=== PATIENT | female | born 1975 | race Caucasian/White ===

== ENCOUNTER 2022-03-02 07:24 | Emergency (ER) | payer OTHER, SELFPAY ==
[2022-03-02 07:24] VITALS: BP 153/107; PULSE 122; RESP 22; O2SAT 100
[2022-03-02 07:26] VITALS: BP 181/112; PULSE 122; RESP 14; TEMP 36.6; O2SAT 100; BMI 44.4
--- NOTE | 2022-03-02 07:46 | CT_ITS ---
STUDY: CT Abdomen And Pelvis W/ Contrast Injection 03/02/2022 9:05 AM REASON FOR EXAM: Female, 46 years old. ride sided abd pain TECHNIQUE: Transaxial images were obtained without oral contrast, and without 100mL Isovue 300 intravenous contrast. Individualized dose optimization techniques were used for this CT. COMPARISON: None. FINDINGS: The visualized lung bases are unremarkable. The visualized portions of the heart are within normal limits. 20mm enhancing lesion in the right lobe of the liver. Unremarkable gallbladder and extrahepatic biliary system. Unremarkable spleen. Unremarkable pancreas. Unremarkable bilateral adrenal glands. No acute findings of the right kidney. No acute findings of the left kidney. Unremarkable visualized stomach. Unremarkable small intestine. Unremarkable colon. The appendix is visualized and appears unremarkable. There are calcifications of the abdominal aorta. This is consistent for atherosclerotic disease. There is no abdominal aortic aneurysm. Unremarkable inferior vena cava. Subcentimeter mesenteric lymph nodes. Unremarkable urinary bladder. Normal visualized uterus. There is an umbilical hernia containing fat. There are diffuse degenerative changes of the visualized lumbar spine. There is bilateral neural foraminal stenosis at L4-5 and L5-S1. CT/Abdomen/Pelvis W IV Cont ONLY IMPRESSION: (NOT LISTED IN ORDER OF SIGNIFICANCE) 20mm enhancing lesion in the right lobe of the liver. ACR White Paper guidelines (Tom, et al. JACR 2017; 14(11):1750-4415.) suggest the following. For patients with low risk of malignancy, recommend hepatic MR. For patients with high risk of malignancy (known malignancy with a propensity to metastasize to the liver, cirrhosis, and/or other hepatic risk factors), recommend hepatic MR or core biopsy. There are diffuse degenerative changes of the visualized lumbar spine. There is bilateral neural foraminal stenosis at L4-5 and L5-S1. There are calcifications of the abdominal aorta. This is consistent for atherosclerotic disease. There is no abdominal aortic aneurysm. Other findings as above. Electronically Signed: Jose Carlos Hinojosa MD at 9:13 EDT ,
--- NOTE | 2022-03-02 07:49 | ED.VIS.GI ---
HPI HPI - GI History of Present Illness Chief Complaint: Abd Pain Informant: patient Abdominal Pain/Flank Pain Onset: Days Context: Gradual Onset Timing: Continuous Quality: Aching Location: RUQ Current Severity: Mild Maximum Severity: Mild Worsened by: Nothing Relieved by: Nothing Nausea/Vomiting/Emesis GI Symptom: Positive for Nausea and Vomiting Onset: Today Severity: Mild Diarrhea/Melena/Hematochezia GI Symptom: Negative for Diarrhea, Melena and Hematochezia Associated Symptoms Associated Symptoms: Negative for Dysuria, Frequency, Hematuria and Urgency Narrative Narrative: 46-year-old female no seen past medical history. Prior back surgery but no prior abdominal surgery. States that on she started having right-sided abdominal pain. Towards the right upper quadrant but kind of between the upper quadrant and the lower quadrant. She denies any prior history. States she had nausea and vomiting times once on but has not had any since that time. She denies any fever or chills. She denies any dysuria. Describes it as a dull aching pain without any radiation to her back or left side of her abdomen. She has never had any history of pain like this before. Denies any trauma. Prior similar symptoms: No Recent Illness/Hospitalization: No PFSH PFSH Medical History no medical history no medical history Home Medications ondansetron 4 mg PO Q6H PRN #10 tab 03/02/22 [Rx Last Taken Unknown] Allergy/AdvReac Type Severity Reaction Status Date / Time ketorolac [From Toradol] Allergy Other Verified 03/02/22 07:25 Family History Mother Hypertension Father Hypertension Heart disease HLD (hyperlipidemia) Sister Hypertension Grandfather Hypertension Heart disease HLD (hyperlipidemia) Social History Smoking Status: Never smoker ROS ROS ED ROS Narrative Right-sided abdominal pain. Nausea vomiting x1. Review of Systems ROS Unobtainable: Denies due to encephalopathy Constitutional Constitutional ED: Denies fever(s) ENT ENT ED: Denies ear pain Cardiovascular Cardiovascular: Denies chest pain Respiratory/Chest Respiratory/Chest: Denies cough or dyspnea Gastrointestinal Gastrointestinal: Reports abdominal pain, nausea and vomiting; Denies constipation, diarrhea or melena Genitourinary Genitourinary ED: Denies dysuria or hematuria Musculoskeletal Musculoskeletal: Denies arthralgias or myalgias Integumentary Denies abscess or rash Neurologic Neurologic: Denies headache(s) or weakness Psychiatric Psychiatric: Denies anxiety or depression Endocrine Endocrinology: Denies polyuria Hematologic/Lymphatic Hematologic/Lymphatic: Denies easy bruising Allergic/Immunologic Allergic/Immunologic ED: Denies urticaria EXAM Physical Exam Narrative Exam Narrative: 46-year-old no acute distress. Vital signs stable afebrile. H EENT exam unremarkable. Lungs are clear. Heart regular rhythm. Abdomen is soft nondistended normal bowel sounds no peritoneal signs. Tender right sided upper quadrant. McBurney's point of right lower quadrant there is no tenderness. Left-sided abdomen is no tenderness. There is no hernia or mass. No distention. No signs of obstruction. Normal bowel sounds. No organomegaly appreciated. Patient moving all 4 extremities. Back nontender. Neurologically awake and alert no focal motor deficits. Const Vital Signs: 03/02/22 07:24 03/02/22 07:26 Temperature 97.9 F Temperature Source Temporal Pulse Rate 122 H 122 H Respiratory Rate 22 H 14 Blood Pressure 153/107 H 181/112 H Blood Pressure Mean 122 135 Pulse Ox 100 100 Oxygen Delivery Method Room Air Room Air Positive well nourished, well developed and obese; Negative for cachectic, contractures or unkempt General Appearance ED: well developed and NAD; Negative for unkempt, cachectic, contractures or pallor Nutritional Appearance: obese; Negative for cachectic HEENT Reports moist mucous membranes; Denies dry mucous membranes normocephalic and atraumatic; Negative for trauma or tenderness Mouth ED: No dry mucous membranes Mouth: No dry mucous membranes Eyes PERRL and EOMs intact bilaterally Neck no lymphadenopathy, supple and no JVD General: Negative for tenderness Resp normal respiratory effort and clear to auscultation bilaterally Auscultation: Negative for rales, rhonchi or wheezes Cardio regular rate, regular rhythm, S1 normal heart sound, S2 normal heart sound and no murmurs GI non-distended and no masses; Negative for non-tender GI Narrative: Right upper quadrant tenderness. No Carlos sign. No McBurney's point tenderness at all. Soft. Inspection: Negative for abdominal distention Auscultation: normoactive bowel sounds; Negative for hyperactive bowel sounds or hypoactive bowel sounds Palpation: soft and tender; Negative for guarding, rigid or rebound tenderness present Back/Spine no CVA tenderness General Back: Negative for CVA tenderness Cervical Spine: Negative for cervical spine tenderness Thoracic Spine / Upper Back: Negative for thoracic spinal tenderness Extremity full ROM General Extremety ED: Negative for edema or tenderness General Extremity: Negative for edema Neuro moves all extremities Sensorium / Orientation: alert, oriented to person, oriented to place and oriented to time; Negative for orientation impaired, confused, lethargic or stuporous Motor Exam: strength 5/5 throughout Psych mental status grossly normal and thought process normal Appearance: Negative for unkempt Attitude: No agitated Mood & Affect: Negative for depressed or tearful Skin no wounds General Skin Exam: Negative for jaundice or pallor Lesions: no lesions Rashes: no rashes and No rashes noted MDM MDM MDM Narrative Medical decision making narrative: 46-year-old female with 2 to 3-day history of right sided abdominal pain primarily right upper quadrant. Gallbladder is a possibility versus other etiologies. CAT scan and labs are being obtained. She did not want anything for pain and her nausea is resolved. Repeat exam patient is doing well. She will be discharged home. I have her primary care physician group on page to let them know she will need follow-up most likely an MR I of her liver. She will just use Tylenol Motrin for pain. She will be given a prescription of Zofran as needed for nausea. Lab Data Attestation: I reviewed the patient's lab results. Lab results narrative: CBC shows a white count of 7. H&H 13 and 40. Electrolytes unremarkable gap is 7 normal BUN and creatinine. Liver enzymes are unremarkable. Lipase is unremarkable at 64. Serum test is negative. Labs: Laboratory Results - last 24 hr 03/02/22 03/02/22 03/02/22 08:00 08:00 08:00 WBC 7.5 RBC 4.32 Hgb 13.4 Hct 40.6 MCV 94.0 MCH 31.0 MCHC 33.0 RDW Std Deviation 43.3 RDW Coeff of Diane 12.5 Plt Count 307 MPV 10.5 Immature Gran % (Auto) 0.300 Neut % (Auto) 58.5 Lymph % (Auto) 30.3 [place] % (Auto) 7.6 Eos % (Auto) 2.5 Baso % (Auto) 0.8 Absolute Neuts (auto) 4.4 Absolute Lymphs (auto) 2.27 Nucleated RBC % 0 Sodium 138 Potassium 3.7 Chloride 109 H Carbon Dioxide 22.0 Anion Gap 7 BUN 12 Creatinine 0.65 Estim Creat Clear Calc 103.39 Est GFR (MDRD) Af Amer 127 Est GFR (MDRD) Non-Af 105 BUN/Creatinine Ratio 18.5 Glucose 103 Calcium 8.8 Total Bilirubin 0.50 AST 14 L ALT 20 Alkaline Phosphatase 86 Total Protein 8.2 Albumin 3.1 L Globulin 5.1 H Albumin/Globulin Ratio 0.6 L Lipase 64 L Serum , Qual NEGATIVE Urine Color Urine Clarity Urine pH Ur Specific [place] Urine Protein Urine Glucose (UA) Urine Ketones Urine Occult Blood Urine Nitrite Urine Bilirubin Urine Urobilinogen Ur Leukocyte Esterase Urine RBC Urine WBC Ur Squamous Epith Cells Urine Bacteria Urine Mucus 03/02/22 09:26 WBC RBC Hgb Hct MCV MCH MCHC RDW Std Deviation RDW Coeff of Diane Plt Count MPV Immature Gran % (Auto) Neut % (Auto) Lymph % (Auto) [place] % (Auto) Eos % (Auto) Baso % (Auto) Absolute Neuts (auto) Absolute Lymphs (auto) Nucleated RBC % Sodium Potassium Chloride Carbon Dioxide Anion Gap BUN Creatinine Estim Creat Clear Calc Est GFR (MDRD) Af Amer Est GFR (MDRD) Non-Af BUN/Creatinine Ratio Glucose Calcium Total Bilirubin AST ALT Alkaline Phosphatase Total Protein Albumin Globulin Albumin/Globulin Ratio Lipase Serum , Qual Urine Color Yellow Urine Clarity Clear Urine pH 6.5 Ur Specific [place] 1.005 Urine Protein Negative Urine Glucose (UA) Normal Urine Ketones Negative Urine Occult Blood Negative Urine Nitrite Negative Urine Bilirubin Negative Urine Urobilinogen Normal Ur Leukocyte Esterase Negative Urine RBC 0 SEEN Urine WBC 0 SEEN Ur Squamous Epith Cells 0-5 SEEN Urine Bacteria 0 SEEN Urine Mucus 0 SEEN Radiography Diagnostic Testing: Clinical Impression(s) from Imaging Studies Abdomen/Pelvis CT 03/02/22 07:46 IMPRESSION: (NOT LISTED IN ORDER OF SIGNIFICANCE) 20mm enhancing lesion in the right lobe of the liver. ACR White Paper guidelines (mahamed Santos al. JACR 2017; 14(11):8495-4959.) suggest the following. For patients with low risk of malignancy, recommend hepatic MR. For patients with high risk of malignancy (known malignancy with a propensity to metastasize to the liver, cirrhosis, and/or other hepatic risk factors), recommend hepatic MR or core biopsy. There are diffuse degenerative changes of the visualized lumbar spine. There is bilateral neural foraminal stenosis at L4-5 and L5-S1. There are calcifications of the abdominal aorta. This is consistent for atherosclerotic disease. There is no abdominal aortic aneurysm. Other findings as above. Electronically Signed: Jose Carlos Hinojosa MD at 9:13 EDT , Discharge Plan Triage Chief Complaint: Abd Pain ED Provider: Pollo Pinto Dx/Rx/DC Orders Clinical Impression: Abdominal pain Instructions: Abdominal Pain Prescriptions: New ondansetron 4 mg tablet,disintegrating 4 mg PO Q6H PRN (Reason: nausea and vomiting) Qty: 10 RF: 0 Primary Care Provider: Lesli Tena Referrals: Lesli Tena, [Primary Care Provider] - 1-2 Weeks Activity Restrictions/Additional Instructions: Do not have a specific cause for your abdominal pain. Your labs were unremarkable. The CAT scan did show an enhancing area in your liver that is are unsure what this is exactly. He will need to follow-up with your primary care physician to get an MRI of your liver for further evaluation of this. This may or may not be associated with the pain and nausea. You also had an incidental finding of umbilical or bellybutton hernia. Motrin and Tylenol for pain. Follow-up with your doctors office for further evaluation of the finding on your liver. Zofran as needed for nausea. Disposition Disposition: Home, Self Care
[2022-03-02 08:06] LABS: Absolute Lymphocyte Count 2.27 X10^3/uL (0.83-4.51); Absolute Neutrophil Count 4.4 X10^3/uL (2.0-7.7); Basophil# 0.06 X10^3/uL; Basophil% 0.8 % (0-1); Eosinophil# 0.19 X10^3/uL; Eosinophils% 2.5 % (0-5); Hematocrit 40.6 % (37-47); Hemoglobin 13.4 g/dL (12.0-15.0); Lymphocyte # 2.27 X10^3/ul (0.83-4.51); Lymphocyte % 30.3 % (19-41); Mean Platelet Vol. 10.5 fl (6.2-12.0); Monocyte# 0.57 X10^3/uL; Monocyte% 7.6 % (0-10); NRBC Flagged by Analyzer 0 % (0-5); Neutrophil # 4.38 X10^3/uL (2.7-7.7); Neutrophil % 58.5 % (47-70); Platelet Count 307 K/mm3 (150-450); RBC Distribution Width CV 12.5 % (11.6-14.6); RBC Distribution Width SD 43.3 fl (35.1-43.9); Red Blood Count 4.32 M/mm3 (4.2-5.4); White Blood Count 7.5 K/mm3 (4.4-11.0)
[2022-03-02 08:23] LABS: Albumin, Serum 3.1 g/dL (3.2-5.0); BUN 12 mg/dL (7-18); BUN/Creat Ratio 18.5 RATIO (10-20); Creatinine, Serum 0.65 mg/dL (0.55-1.02); EST Glomerular Filtration Rate 105 mL/min (>60); Est Glom Filt Rate - Afr Amer 127 mL/min (>60); Estimated Creatinine Clearance 103.39 ml/min; Glucose 103 mg/dL (74-106); Protein, Total 8.2 g/dL (6.4-8.2)
[2022-03-02 08:24] LABS: ALB/GLOB Ratio 0.6 RATIO (0.9-2.4); AST(SGOT) 14 U/L (15-37); Alanine Aminotransfer ALT/SGPT 20 U/L (13-56); Alkaline Phosphatase 86 U/L (45-117); Anion Gap 7 (5-15); Calcium,Total 8.8 mg/dL (8.5-10.1); Chloride 109 mmol/L (98-107); Globulin 5.1 g/dL (2.2-4.2); Lipase 64 U/L (73-393); Potassium 3.7 mmol/L (3.5-5.1); Sodium Level 138 mmol/L (136-145)
[2022-03-02 08:38] LABS: Internal QC Validated? YES +Cl - CLEAR BKGD; Pregnancy, Serum, hCG Quali. NEGATIVE Negative
[2022-03-02 09:24] VITALS: BP 154/96; PULSE 83; RESP 18; O2SAT 98
[2022-03-02 09:35] LABS: Bacteria 0 SEEN /hpf (None Seen); Mucous, Urine 0 SEEN /hpf (<or=2+); Red Blood Cells-Urine 0 SEEN /hpf (0-5); White Blood Cells 0 SEEN /hpf (0-5)
[2022-03-02 09:42] LABS: Color, Urine Yellow (Yellow); Glucose, Dipstick Normal (Normal); Ketone-Dipstick Negative (Negative); Leukocyte Esterase-Dipstick Negative /ul (Negative); Nitrite-Dipstick Negative (Negative); Occult Blood-Urine Negative /ul (Negative); Protein-Dipstick Negative (Negative); Specific Gravity, Urine 1.005 (1.002-1.030); Urine Bilirubin Dipstick Negative (Negative); Urine Clarity Clear (Clear); Urine Urobilinogen Normal (Normal); Urine pH 6.5 (5.0 - 8.0)
[2022-03-02 09:49] LABS: Squamous Epithelial Cells - UA 0-5 SEEN /hpf (5-10)
== END 2022-03-02 10:11 | disposition home or self-care (01) ==
PROVIDERS: Emergency Provider Emergency Medicine; PCP Internal Medicine; Visit Provider Emergency Medicine
DX: R10.9 Unspecified abdominal pain (principal); R11.2 Nausea with vomiting, unspecified
CPT/HCPCS: 74177; 80053; 81001; 83690; 84703; 85025; 99283; Q9967; A4216

== ENCOUNTER → 2022-03-06 | Outpatient (CLI) | payer OTHER, SELFPAY ==
[2022-03-06 09:40] LABS: Absolute Lymphocyte Count 2.67 X10^3/uL (0.83-4.51); Absolute Neutrophil Count 12.3 X10^3/uL (2.0-7.7); Basophil# 0.06 X10^3/uL; Basophil% 0.4 % (0-1); Eosinophil# 0.09 X10^3/uL; Eosinophils% 0.6 % (0-5); Hematocrit 42.3 % (37-47); Hemoglobin 13.7 g/dL (12.0-15.0); Lymphocyte # 2.67 X10^3/ul (0.83-4.51); Lymphocyte % 16.8 % (19-41); Mean Corp Hgb Conc 32.4 g/dL (32-36); Mean Corpuscular Hgb 30.2 pg (27.0-32.0); Mean Corpuscular Volume 93.4 fL (81-99); Mean Platelet Vol. 11.6 fl (6.2-12.0); Monocyte# 0.72 X10^3/uL; Monocyte% 4.5 % (0-10); NRBC Flagged by Analyzer 0 % (0-5); Neutrophil # 12.26 X10^3/uL (2.7-7.7); Neutrophil % 77.3 % (47-70); Platelet Count 320 K/mm3 (150-450); RBC Distribution Width CV 12.6 % (11.6-14.6); RBC Distribution Width SD 43.2 fl (35.1-43.9); Red Blood Count 4.53 M/mm3 (4.2-5.4); White Blood Count 15.9 K/mm3 (4.4-11.0)
[2022-03-06 10:01] LABS: Microalbumin,Random Urine 11.6 mg/L (NO RANGE EST.)
[2022-03-06 10:23] LABS: ALB/GLOB Ratio 0.7 RATIO (0.9-2.4); AST(SGOT) 24 U/L (15-37); Alanine Aminotransfer ALT/SGPT 26 U/L (13-56); Albumin, Serum 3.2 g/dL (3.2-5.0); Alkaline Phosphatase 90 U/L (45-117); Anion Gap 9 (5-15); BUN 9 mg/dL (7-18); Calcium,Total 8.8 mg/dL (8.5-10.1); Chloride 105 mmol/L (98-107); Cholesterol 213 mg/dL (200); Creatinine, Serum 0.64 mg/dL (0.55-1.02); EST Glomerular Filtration Rate 106 mL/min (>60); Est Glom Filt Rate - Afr Amer 129 mL/min (>60); Globulin 4.7 g/dL (2.2-4.2); Glucose 94 mg/dL (74-106); High Density Lipoprotein 48 mg/dL; Potassium 4.1 mmol/L (3.5-5.1); Protein, Total 7.9 g/dL (6.4-8.2); Sodium Level 139 mmol/L (136-145); Thyroid Stim Hormone (TSH) 3.39 uIU/mL (0.358-3.74); Triglycerides 118 mg/dL; Very Low Density Lipoprotein 24 mg/dL (5-40)
== END | disposition home or self-care (01) ==
LOC: LAB 08:42
PROVIDERS: PCP Internal Medicine; Visit Provider Internal Medicine
DX: H02.60 Xanthelasma of unspecified eye, unspecified eyelid (principal); R03.0 Elevated blood-pressure reading, without diagnosis of hypertension; E55.9 Vitamin D deficiency, unspecified
CPT/HCPCS: 36415; 80053; 80061; 82043; 82306; 82570; 84443; 85025

== ENCOUNTER → 2022-03-22 | Outpatient (CLI) | payer OTHER, SELFPAY ==
--- NOTE | 2022-03-22 16:24 | MRI_ITS ---
STUDY: MRI ABDOMEN WITH AND WITHOUT CONTRAST REASON FOR EXAM: Female, 46 years old. LIVER LESION, F/U ABNORMAL FINDING ON CT TECHNIQUE: Standardized fat and water weighted pulse sequences were obtained in all 3 orthogonal planes post contrast administration. IV Yes YES was administered for the contrast portion of the examination. COMPARISON: None. FINDINGS: The visualized lung bases are unremarkable. The visualized portions of the heart are within normal limits. 2.6 cm T2 hyperintense/T1 hypointense lesion in the hepatic dome with gradual centripetal nodular enhancement consistent with hemangioma. Normal gallbladder and extrahepatic biliary system. Normal spleen. Normal pancreas. Normal bilateral adrenal glands. Normal right kidney. Normal left kidney. Normal visualized stomach. Normal small intestine. Normal colon. Normal abdominal aorta. Normal inferior vena cava. Normal retroperitoneum. Normal abdominal wall. Normal osseous structures. MRI/MRI Abd WITH and W/O Contrast IMPRESSION: 2.6 cm hemangioma in the hepatic dome. Electronically Signed: Gonzalo Bee MD at 23:58 EDT ,
== END | disposition home or self-care (01) ==
LOC: MRI 16:11
PROVIDERS: PCP Internal Medicine; Visit Provider Internal Medicine
DX: K76.9 Liver disease, unspecified (principal)
CPT/HCPCS: 74183; A9575

== ENCOUNTER → 2022-05-08 | Outpatient (CLI) | payer OTHER, SELFPAY | END | disposition home or self-care (01) | LOC: CVS 11:03 | PROVIDERS: PCP Internal Medicine; Referring Provider Internal Medicine; Visit Provider Internal Medicine | DX: R09.89 Other specified symptoms and signs involving the circulatory and respiratory systems (principal) | CPT/HCPCS: 93930 ==

== ENCOUNTER 2022-08-14 13:42 | Emergency (ER) | payer OTHER, SELFPAY ==
[2022-08-14 13:43] VITALS: BP 173/91; PULSE 111; RESP 16; TEMP 36.8; O2SAT 98; BMI 20.5
--- NOTE | 2022-08-14 13:46 | RAD_ITS ---
STUDY: X-RAY CHEST REASON FOR EXAM: Female, 46 years old. General illness TECHNIQUE: Single AP portable view of the chest. COMPARISON: None. FINDINGS: EKG electrodes are seen. The lungs are clear and expanded. There is no demonstrated pleural abnormality. Normal size heart. Normal mediastinum and ismael. Normal visualized pulmonary arteries. Normal visualized aortic arch and descending thoracic aorta. Normal visualized thoracic spine. Normal visualized ribs, clavicles, and shoulders. There is no demonstrated abnormality of the visualized soft tissue structures of the upper abdomen. RAD/Chest 1 View (Portable) IMPRESSION: Normal x-ray examination of the chest. Electronically Signed: Hudson Calderon MD at 14:12 EDT ,
--- NOTE | 2022-08-14 13:46 | EKG12_ITS ---
Test Reason : NAUSEA Blood Pressure : / mmHG Vent. Rate : 111 BPM Atrial Rate : 111 BPM P-R Int : 126 ms QRS Dur : 074 ms QT Int : 344 ms P-R-T Axes : 044 -25 015 degrees QTc Int : 467 ms Sinus tachycardia Low voltage QRS Cannot rule out Inferior infarct , age undetermined Abnormal ECG Confirmed by EFRA DURBIN, GATITO ([id number]), fan mail editor FREDA JOSEPH ([id number]) on 08/16/2022 2:07:28 P M Referred By: NATIVIDAD/TARI Confirmed By:NOE KRAUS MD
--- NOTE | 2022-08-14 13:51 | NURSING ---
NO OLD EKGS
[2022-08-14 14:13] LABS: Absolute Lymphocyte Count 2.79 X10^3/uL (0.83-4.51); Absolute Neutrophil Count 6.1 X10^3/uL (2.0-7.7); Basophil# 0.05 X10^3/uL; Basophil% 0.5 % (0-1); Eosinophil# 0.13 X10^3/uL; Eosinophils% 1.3 % (0-5); Hematocrit 39.3 % (37-47); Hemoglobin 13.3 g/dL (12.0-15.0); Lymphocyte # 2.79 X10^3/ul (0.83-4.51); Lymphocyte % 28.1 % (19-41); Mean Corp Hgb Conc 33.8 g/dL (32-36); Mean Corpuscular Hgb 30.7 pg (27.0-32.0); Mean Corpuscular Volume 90.8 fL (81-99); Mean Platelet Vol. 11.1 fl (6.2-12.0); Monocyte% 8.1 % (0-10); NRBC Flagged by Analyzer 0 % (0-5); Neutrophil # 6.13 X10^3/uL (2.7-7.7); Neutrophil % 61.8 % (47-70); Platelet Count 309 K/mm3 (150-450); RBC Distribution Width CV 12.4 % (11.6-14.6); RBC Distribution Width SD 41.2 fl (35.1-43.9); Red Blood Count 4.33 M/mm3 (4.2-5.4); White Blood Count 9.9 K/mm3 (4.4-11.0)
[2022-08-14 14:26] LABS: Anion Gap 6 (5-15); BUN 11 mg/dL (7-18); Calcium,Total 9.3 mg/dL (8.5-10.1); Chloride 108 mmol/L (98-107); Creatinine, Serum 0.61 mg/dL (0.55-1.02); EST Glomerular Filtration Rate 113 mL/min (>60); Est Glom Filt Rate - Afr Amer 136 mL/min (>60); Estimated Creatinine Clearance 104.25 ml/min; Glucose 115 mg/dL (74-106); Potassium 3.4 mmol/L (3.5-5.1); Sodium Level 139 mmol/L (136-145)
[2022-08-14 15:00] VITALS: BP 164/93; PULSE 101; RESP 15; O2SAT 100
[2022-08-14 15:06] LABS: Mucous, Urine 0 SEEN /hpf (<or=2+); Red Blood Cells-Urine 0 SEEN /hpf (0-5)
[2022-08-14 15:13] LABS: Color, Urine Yellow (Yellow); Glucose, Dipstick Normal (Normal); Ketone-Dipstick Negative (Negative); Leukocyte Esterase-Dipstick 25 /ul (Negative); Nitrite-Dipstick Negative (Negative); Occult Blood-Urine Negative /ul (Negative); Protein-Dipstick Negative (Negative); Urine Bilirubin Dipstick Negative (Negative); Urine Clarity Sl. Cloudy (Clear); Urine Urobilinogen Normal (Normal)
[2022-08-14 15:21] LABS: Bacteria 1+ /hpf (None Seen); Squamous Epithelial Cells - UA 0-5 SEEN /hpf (5-10); White Blood Cells 0-5 SEEN /hpf (0-5)
--- NOTE | 2022-08-14 15:56 | EX.ED.DYSGE1 ---
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 In 1 point she was near syncopal when she stood up, she felt nauseated, and very lightheaded. She had no focal neurologic symptoms, headache, chest discomfort, dyspnea, vomiting. She states the bleeding was significant, and despite holding pressure and leaning forward it took a long time for her to eventually stop but it did. She is on no antiplatelet or anticoagulant medications. She does not take any medication for blood pressure states it is usually good but she did have a problem in the past in which she had a subclavian artery ultrasound on the left because of asymmetric blood pressures. She states it was unremarkable. She denies any injury to her nose to explain the nosebleed. She has had them before because of dry winter air. She has taken no [id number]-[id number] medications recently except for a half dose of Tylenol PM last night to help her get to sleep. No decongestants. [facility] Medical History COVID High blood pressure Nasal bleeding Home Medications lisinopril 10 mg tablet 10 mg PO DAILY #30 tabs 08/14/22 [Rx Last Taken Unknown] multivitamin 1 tab PO DAILY 08/14/22 [History Last Taken Unknown] Allergy/AdvReac Type Severity Reaction Status Date / Time ketorolac [From Toradol] Allergy Other Verified 08/14/22 13:43 Family History Mother Hypertension Father Hypertension Heart disease HLD (hyperlipidemia) Sister Hypertension Grandfather Hypertension Heart disease HLD (hyperlipidemia) Social History Smoking Status: Never smoker ROS ROS ED Constitutional Constitutional ED: Denies chills or fever(s) Eyes Eyes: Denies change in vision or diplopia ENT ENT ED: Reports epistaxis; Denies rhinorrhea or sore throat Cardiovascular Cardiovascular: Reports lightheadedness; Denies chest pain or palpitations Respiratory/Chest Respiratory/Chest: Denies cough or dyspnea Gastrointestinal Gastrointestinal: Denies abdominal pain, diarrhea, nausea or vomiting Genitourinary Genitourinary ED: Denies dysuria or hematuria Musculoskeletal Musculoskeletal: Denies back pain or neck pain Integumentary Denies abscess or rash Neurologic Neurologic: Reports paresthesias RUE and LUE and other Details: Paresthesias resolved now ; Denies headache(s) or weakness Psychiatric Psychiatric: Denies anxiety or suicidal thoughts EXAM Physical Exam Const Vital Signs: 08/14/22 13:43 08/14/22 13:48 08/14/22 15:00 Temperature 98.3 F Temperature Source Oral Pulse Rate 111 H 101 H Respiratory Rate 16 15 Respiratory Effort Normal Non-Labored Respiratory Pattern Normal Blood Pressure 173/91 H 164/93 H Blood Pressure Mean 118 116 Pulse Ox 98 100 Oxygen Delivery Method Room Air Room Air 08/14/22 16:03 Temperature Temperature Source Pulse Rate 100 Respiratory Rate 15 Respiratory Effort Respiratory Pattern Blood Pressure 163/92 H Blood Pressure Mean Pulse Ox 99 Oxygen Delivery Method Positive well nourished and well developed General Appearance ED: well developed and NAD HEENT Reports moist mucous membranes HEENT Narrative: Some mild irritation on the septum of the right naris, no perforation, no clot or active bleeding anywhere. Left side is clear. Posterior oropharynx is clear no blood. normocephalic and atraumatic Eyes PERRL and EOMs intact bilaterally Neck full ROM and supple Resp normal respiratory effort and clear to auscultation bilaterally Cardio regular rate, regular rhythm and no murmurs GI non-tender and non-distended Auscultation: normoactive bowel sounds Palpation: soft Back/Spine no CVA tenderness General Back: other FROM Extremity normal to inspection General Extremety ED: Negative for edema, pulses abnormal or tenderness General Extremity: Negative for edema or pulses abnormal Neuro oriented x3, CN's II-XII intact bilaterally and no sensory deficits noted Sensorium / Orientation: awake and alert Motor Exam: strength 5/5 throughout Skin no rashes or lesions noted and no wounds MDM MDM MDM Narrative Medical decision making narrative: I checked the blood pressure on both arms, the patient was feeling better at that time. Initially her heart rate was around 111 when she got here, during my evaluation she was in the 90s. Left arm 169/87, the right side is 156/102. I do not think the systolics are different enough to warrant CT angiography of blood vessels or anything like that, I think her blood pressure truly was elevated but etiology is unknown, and I think that is probably what caused her nosebleed. She is not currently bleeding, we will need to adjust any medications to keep her from having recurrent bleeding, nor do I think she needs a nasal packing right now. Given this level of blood pressure I think she can go home, I will give her a clonidine here prior to discharge, she is no longer orthostatic and able to get up without feeling like she is going to pass out, her blood counts are good, I will put her on something before she sees her doctor at her neck scheduled visit which is in about 1 month. I recommend checking her blood pressure at least a couple times a week in the meantime as long as she is feeling okay. We discussed reasons to return, we gave her appropriate instructions on how to take her recurrent bleeding at home prior to coming back to the ER, she is comfortable with overall plan. Lab Data Attestation: I reviewed the patient's lab results. Labs: Laboratory Results - last 24 hr 08/14/22 08/14/22 08/14/22 14:07 14:07 14:58 WBC 9.9 RBC 4.33 Hgb 13.3 Hct 39.3 MCV 90.8 MCH 30.7 MCHC 33.8 RDW Std Deviation 41.2 RDW Coeff of Diane 12.4 Plt Count 309 MPV 11.1 Immature Gran % (Auto) 0.200 Neut % (Auto) 61.8 Lymph % (Auto) 28.1 [place] % (Auto) 8.1 Eos % (Auto) 1.3 Baso % (Auto) 0.5 Absolute Neuts (auto) 6.1 Absolute Lymphs (auto) 2.79 Nucleated RBC % 0 Sodium 139 Potassium 3.4 L Chloride 108 H Carbon Dioxide 25.0 Anion Gap 6 BUN 11 Creatinine 0.61 Estim Creat Clear Calc 104.25 Est GFR (MDRD) Af Amer 136 Est GFR (MDRD) Non-Af 113 BUN/Creatinine Ratio 18.0 Glucose 115 H Calcium 9.3 Urine Color Yellow Urine Clarity Sl. Cloudy Urine pH 6.0 Ur Specific [place] 1.010 Urine Protein Negative Urine Glucose (UA) Normal Urine Ketones Negative Urine Occult Blood Negative Urine Nitrite Negative Urine Bilirubin Negative Urine Urobilinogen Normal Ur Leukocyte Esterase 25 H Urine RBC 0 SEEN Urine WBC 0-5 SEEN Ur Squamous Epith Cells 0-5 SEEN Urine Bacteria 1+ Urine Mucus 0 SEEN Radiography Diagnostic Testing: Clinical Impression(s) from Imaging Studies Chest X-Ray 08/14/22 13:46 IMPRESSION: Normal x-ray examination of the chest. Electronically Signed: Hudson Calderon MD at 14:12 EDT , Rhythm Strip Rhythm Strip: Sinus Rhythm Rate: 100 Ectopy: None EKG Initial EKG: Attestation: I personally reviewed and interpreted this EKG as follows: Interpretation: No Acute Injury Pattern and Sinus Tachycardia Discharge Plan Triage Chief Complaint: Nausea/Vomiting Other Complaint: Hypertension Nosebleed ED Provider: Lionel Garcia Dx/Rx/DC Orders Clinical Impression: Acute anterior epistaxis, Episode of hypertension Instructions: Controlling High Blood Pressure, Blood Pressure Check Steps Prescriptions: New lisinopril 10 mg tablet 10 mg PO DAILY Qty: 30 0RF No Action multivitamin Tablet 1 tab PO DAILY Primary Care Provider: Lesli Tena Referrals: Lesli Tena, [Primary Care Provider] - Keep Bety appointment (Or sooner if able) Activity Restrictions/Additional Instructions: Get any [id number]-wwegqpy nasal decongestant spray containing oxymetazoline or phenylephrine. For moderate-severe nosebleed: 1 - gather supplies: nasal decongestant spray (above), cotton ball, box of tissues, garbage can, old towel that you can wrap around your chest/neck (to catch blood) 2 - soak a cotton ball in the nasal spray 3 - blow your nose, get all blood and clots out, keep chin down to prevent blood from going back into throat and forming clots 4 - after blowing the last time, quickly spray 2 sprays of the nasal spray into the affected side and sniff it back, immediately followed by twisting the soaked cotton ball into the front of your nose and then hold pressure with your fingers. 5 - if bleeding controlled, leave cotton ball in place for at least 20 min before checking to see if the bleeding is controlled by removing the cotton ball. If not able to control bleeding, always welcome to return to the ER for help. With regards to her blood pressure, try to check it a couple times a week if you are able. Disposition Disposition: Home, Self Care Discharge Date/Time: 08/14/22 16:27
[2022-08-14 16:03] VITALS: BP 163/92; PULSE 100; RESP 15; O2SAT 99
[2022-08-14] MEDS: cloNIDine HCl 0.2 MG Tablet PO (16:23)
== END 2022-08-14 16:27 | disposition home or self-care (01) ==
PROVIDERS: Emergency Provider Emergency Medicine; PCP Internal Medicine; Visit Provider Emergency Medicine
DX: R04.0 Epistaxis (principal); R11.2 Nausea with vomiting, unspecified; I10 Essential (primary) hypertension; Z86.16 Personal history of COVID-19
CPT/HCPCS: 71045; 80048; 81001; 85025; 93005; 99285; A4216

== ENCOUNTER → 2023-04-08 | Outpatient (CLI) | payer OTHER, SELFPAY ==
--- NOTE | 2023-04-08 15:52 | BD_ITS ---
STUDY: DUAL ENERGY X-RAY ABSORPTIOMETRY / DXA REASON FOR EXAM: Female, 47 years old. 733.00OsteoporosisBONE DENSITY REASON FOR EXAM TECHNIQUE: Bone Mineral Density (BMD) measurements of lumbar spine and bilateral hips were obtained. COMPARISON: None. FINDINGS: Lumbar Spine (L1-L4): g/cm2 (1.252) / T-score (2.5) / Z-score (2.8) Findings are suggestive of normal bone density with a low fracture risk. Left Femur Total: g/cm2 (1.205) / T-score (2.2) / Z-score (2.5) Left Femoral Neck: g/cm2 (1.035) / T-score (1.7) / Z-score (2.1) Right Femur Total: g/cm2 (1.252) / T-score (2.5) / Z-score (2.8) Right Femoral Neck: g/cm2 (1.109) / T-score (2.3) / Z-score (2.8) BD/Dexa Bone Density Study IMPRESSION: The patient is considered normal as outlined below according to World Abiel Organization (WHO) criteria with a low fracture risk. Reference Information: The T-score is the number of standard deviations above or below the standard which is normal for young adults at their peak bone mineral density. The World Health Organization (WHO) interprets the T-scores as follows: Above -1 Normal bone density Between -1 and -2.5 Osteopenia Equal to / or below -2.5 Osteoporosis As a practical clinical guideline, osteopenia may be graded as follows: Mild -1 through -1.5 Moderate -1.6 through -2.0 Severe -2.1 through -2.4 The Z-score is the number of standard deviations above or below age-matched controls. A Z-score of less than -1.5 would be considered abnormal. References: 1. NIH Osteoporosis and Related Bone Diseases www osteo.org 2. International Society for Clinical Densitometry www iscd.org 3. National Osteoporosis Foundation www nof.org Electronically Signed: Hudson Calderon MD at 12:57 EDT ,
== END | disposition home or self-care (01) ==
LOC: OPBD 15:43
PROVIDERS: PCP Internal Medicine; Referring Provider Internal Medicine; Visit Provider Internal Medicine
DX: M81.0 Age-related osteoporosis without current pathological fracture (principal)
CPT/HCPCS: 77080

== ENCOUNTER → 2023-10-08 | Outpatient (CLI) | payer OTHER, SELFPAY ==
--- NOTE | 2023-10-08 09:08 | BI_ITS ---
MAMMOGRAPHY - BILATERAL SCREENING REASON FOR EXAM: Female, 47 years old. Routine annual screening examination. PERTINENT HISTORY: Non-contributory. TECHNIQUE: Digital bilateral breast ariella (3D mammographic acquisition) in the CC and MLO projections. 2-D mediolateral oblique (MLO) and craniocaudad (CC) views of both breasts were obtained. CAD: Full Field Digital Mammography with Computer Added Detection was performed. COMPARISON: None. Baseline examination. FINDINGS: Breast Composition: There are scattered areas of fibroglandular density. There is a 1 cm well-defined nodule in the deep upper lateral aspect of the left breast. This most likely represents a lymph node. Correlation with ultrasound is recommended. Benign-appearing bilateral axillary lymph nodes. No other significant abnormalities are identified. BI/SCRN MAMM (CAD)W/ARIELLA BILAT IMPRESSION: 1 cm well-defined nodule in the deep upper lateral aspect of the left breast as described. Correlation with ultrasound is recommended. ASSESSMENT CATEGORY: BIRADS Category 0: Incomplete. Need additional imaging evaluation. A letter regarding these results will be sent to the patient by the facility within 30 days. Approximately 10% of breast cancers are not detected by mammography. A normal mammogram should not delay biopsy of a clinically suspicious abnormality. [id number] Electronically Signed: Hudson Calderon MD at 10:14 EST ,
== END | disposition home or self-care (01) ==
LOC: OPBI 09:07
PROVIDERS: PCP Internal Medicine; Referring Provider Internal Medicine; Visit Provider Internal Medicine
DX: Z12.31 Encounter for screening mammogram for malignant neoplasm of breast (principal)
CPT/HCPCS: 77063; 77067

== ENCOUNTER → 2023-10-10 | Outpatient (CLI) | payer OTHER, SELFPAY ==
--- NOTE | 2023-10-10 09:07 | US_ITS ---
STUDY: ULTRASOUND BREAST - LEFT REASON FOR EXAM: Female, 47 years old. Abnormal mammogram TECHNIQUE: Axial and longitudinal images of the LEFT breast were performed with a high resolution ultrasound transducer. # OF IMAGES: 37 COMPARISON: 10/08/2023 FINDINGS: LEFT Breast: Focused sonographic evaluation of the upper outer quadrant of the left breast shows an anechoic simple cyst at 1:00 measuring 0.8 x 0.7 x 0.6 cm. There is posterior enhancement, and well-defined borders. No suspicious shadowing solid lesion, architectural distortion, or clustered shadowing calcifications. US/Breast Limited Unilateral IMPRESSION: Simple cyst in the upper outer quadrant ASSESSMENT CATEGORY: BIRADS Category 1: Negative. A letter regarding these results will be sent to the patient by the facility within 30 days. Electronically Signed: Kar Melendez MD at 11:56 EST ,
== END | disposition home or self-care (01) ==
LOC: OPUS 09:03
PROVIDERS: PCP Internal Medicine; Referring Provider Internal Medicine; Visit Provider Internal Medicine
DX: R92.8 Other abnormal and inconclusive findings on diagnostic imaging of breast (principal); N63.20 Unspecified lump in the left breast, unspecified quadrant
CPT/HCPCS: 76642

== ENCOUNTER → 2024-03-19 | Outpatient (CLI) | payer OTHER, SELFPAY | END | disposition home or self-care (01) | PROVIDERS: PCP Internal Medicine; Referring Provider Internal Medicine; Visit Provider Internal Medicine | DX: R05.9 Cough, unspecified (principal) | CPT/HCPCS: 94060; 94726; 94729 ==

== ENCOUNTER 2024-04-15 10:48 | Day surgery (SDC) | payer OTHER, SELFPAY ==
[2024-04-15] VITALS (8 sets, daily range): BP systolic 90–127; BP diastolic 47–94; PULSE 69–79; RESP 6–16; TEMP 36.1–36.8; O2SAT 99–100; BMI 41.7
[2024-04-15 11:13] LABS: Internal QC Validated? YES +Cl - CLEAR BKGD; Pregnancy, Urine Negative Negative
--- NOTE | 2024-04-15 11:13 | PCM.PRE.AN2 ---
ASA Classification* ASA Classification ASA Classification: 3 Assessment & Plan Anesthesia* Anesthesia Assessment Anesthesia Assessment: Discussed sedation and/or anesthesia options, risks, benefits, and alternatives with patient/parents/legal guardian/POA. Questions invited. The patient/parents/legal guardian/POA seems to understand and agrees to proceed with anesthesia plan. Reviewed the physical assessment, medical history, allergy history and patient home medications list prior to surgery/procedure/anesthetic and documented any changes. Performed airway and anesthesia risk assessments. Procedural Plan Procedural Plan:: Proceed w/ Anesthesia plan Anesthesia Type Anesthesia Type: MAC (see written pre anesthesia record for full assessment) Anesthesia Focused Assessment* Airway Assessment Mouth opens: 2 cm Mallampati Score: II Focused Labs Anesthesia Preop lab: CBC WBC 9.9 K/mm3 (4.4-11.0) 08/14/22 14:07 RBC 4.33 M/mm3 (4.2-5.4) 08/14/22 14:07 Hgb 13.3 g/dL (12.0-15.0) 08/14/22 14:07 Hct 39.3 % (37-47) 08/14/22 14:07 Plt Count 309 K/mm3 (150-450) 08/14/22 14:07 CHEMISTRY Potassium 3.4 mmol/L (3.5-5.1) L 08/14/22 14:07 Sodium 139 mmol/L (136-145) 08/14/22 14:07 BUN 11 mg/dL (7-18) 08/14/22 14:07 Creatinine 0.61 mg/dL (0.55-1.02) 08/14/22 14:07 Glucose 115 mg/dL (74-106) H 08/14/22 14:07 TSH 3.39 uIU/mL (0.358-3.74) 03/06/22 08:43 COAG Urine Test Negative Negative 04/15/24 10:55 Pre-Assessment Diagnosis/Proposed Procedure Planned Operative Procedure(s): COLONOSCOPY Anesthesia History 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 When Was Last Pacemaker Check QUESTION #4 FULL TEXT: You/Your Family Experience fever (hyperthermia) with Anesthesia Last Oral Intake Last Oral intake: Last Oral Intake NPO since Meds taken in AM with sips of water? Meds patient instructed to take am of surgery PONV PONV - product engineering manager: PONV - product engineering manager Female Yes 04/09/24 14:41 HX of Motion Sickness No 04/09/24 14:41 HX of N/V After Surgery Yes 04/09/24 14:41 Non-Smoker Yes 04/09/24 14:41 Duration of Surgery greater No 04/09/24 14:41 than 60 minutes Number of Risk Factors 3 04/09/24 14:41 PONV Score Moderate Risk 04/09/24 14:41 Height & Weight Height & Weight: Anesthesia: Height & Weight Height 5 ft 6.75 in 03/25/24 10:45 Respiratory Assessment Respiratory Assessment - product engineering manager: Respiratory Tract Infection Hx - product engineering manager Hx Respiratory Tract Infection No 04/09/24 14:41 STOP Sleep Apnea STOP Sleep Apnea - product engineering manager: STOP Sleep Apnea - product engineering manager Hx Hypertension Yes: PER PT, CONTROLLED ON 04/09/24 14:41 MEDS Hx Sleep Apnea No 04/09/24 14:41 CPAP BIPAP Do you snore loudly (louder No 04/09/24 14:41 than talking or can be heard Do you often feel tired/ No 04/09/24 14:41 fatigued/ sleepy during daytime? Has anyone observed you stop No 04/09/24 14:41 breathing during sleep? STOP Results Negative 04/09/24 14:41 QUESTION #5 FULL TEXT : Do you snore loudly (louder than talking or can be heard through closed doors)? Tobacco Use History Tobacco Use History - product engineering manager: Tobacco Use History - product engineering manager Tobacco Use Smoking Status Never smoker 04/09/24 14:41 Hx Tobacco Use No 04/09/24 14:41 Years Smoking Packs Smoked per Day Smoking Cessation Date was within the last 15 years Hx Smoking Cessation Date Hx Smoking Cessation Counseling Hematologic Medial History Hematologic Hx - product engineering manager: Hematologic Medical Hx - ceiling insulation blower Hx of Blood Transfusion No 04/09/24 14:41 Hx of Transfusion in last 3 No 04/09/24 14:41 Months Date of Last Transfusion (if within last 3 months) Ever experience any problems No 04/09/24 14:41 with transfusion(s)? Specify any problems Hx of Preganancy in last 3 No 04/09/24 14:41 Months Nurse Filling Out Transfusion MGRIFFITH 04/09/24 14:41 & Questions: Date: 04/09/24 04/09/24 14:41 Time: 14:43 04/09/24 14:41 Patient unable to answer at this time (ie. confused, unrespo /Reproduction History /Reproductive History - product engineering manager: /Reproductive Hx- product engineering manager Hx Now No 04/09/24 14:41 Gestational Age (in weeks): EDC: Hx Hx Para Hx Section SAB No 04/09/24 14:41 Active Medications Active Medications: Current Medications Generic Name Dose Route Start Last Admin Trade Name Freq PRN Reason Stop Dose Admin Lactated Ringer's 1,000 mls @ 15 mls/hr 04/15/24 11:00 IV .Q48H PURNIMA PFSH Medical History Difficult intravenous access Wears glasses Anxiety High cholesterol Migraine headache Restless legs Dietary restriction PONV (postoperative nausea and vomiting) Gastric reflux Non-smoker Chronic cough Hemangioma of liver Liver lesion High blood pressure Nasal bleeding COVID Home Medications ?Medication ?Instructions ?Recorded ?Last Taken ?Type escitalopram oxalate 10 mg tablet 10 mg PO DAILY 03/25/24 Unknown History pantoprazole 40 mg tablet,delayed 40 mg PO QHS 03/25/24 Unknown History release MITOCORE 4 tab DAILY 04/09/24 Unknown History lisinopril 10 mg tablet 10 mg PO BID 04/09/24 Unknown History tyrosine 400 mg-acetylcysteine 133 3 cap PO BID 04/09/24 Unknown History mg capsule (AdrenaMax) Allergy/AdvReac Type Severity Reaction Status Date / Time Beef Containing Products Allergy Severe Hives Verified 04/09/24 14:36 ketorolac (From Toradol) Allergy Other Verified 04/09/24 14:36 Family History Mother Hypertension Colon polyps Father Hypertension Heart disease HLD (hyperlipidemia) Sister Hypertension Grandfather Hypertension Heart disease HLD (hyperlipidemia) Surgical History History of back surgery Hx of tonsillectomy Hx of adenoidectomy Social History household members: significant other current occupational status: employed 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
[2024-04-15] MEDS: Lactated Ringers 1,000 ML 15 ML IV (11:21)
--- NOTE | 2024-04-15 11:48 | H&P.OPEN ---
[facility] - General General Date of Service: 04/15/24 HPI Narrative SUZANNA QUISPE, is a 48 F who presents for screening colonoscopy. Patient never had previous colonoscopy. Patient denies any family history of colon cancer. Patient denies any chronic abdominal pain/nausea/vomiting. Patient is currently trying to figure out her chronic cough which she is on lisinopril and some reflux which she has at night. Patient is currently on Protonix. Patient has bowel movements daily denies any blood. [facility] Medical History (Updated 04/15/24 @ 12:[address] Christie Ortiz MD) Difficult intravenous access Wears glasses Anxiety High cholesterol Migraine headache Restless legs Dietary restriction PONV (postoperative nausea and vomiting) Gastric reflux Non-smoker Chronic cough Hemangioma of liver Liver lesion High blood pressure Nasal bleeding COVID Home Medications ?Medication ?Instructions ?Recorded ?Last Taken ?Type escitalopram oxalate 10 mg tablet 10 mg PO DAILY 03/25/24 Unknown History pantoprazole 40 mg tablet,delayed 40 mg PO QHS 03/25/24 Unknown History release MITOCORE 4 tab DAILY 04/09/24 Unknown History lisinopril 10 mg tablet 10 mg PO BID 04/09/24 Unknown History tyrosine 400 mg-acetylcysteine 133 3 cap PO BID 04/09/24 Unknown History mg capsule (AdrenaMax) Allergy/AdvReac Type Severity Reaction Status Date / Time Beef Containing Products Allergy Severe Hives Verified 04/09/24 14:36 ketorolac (From Toradol) Allergy Other Verified 04/09/24 14:36 Family History Mother Hypertension Colon polyps Father Hypertension Heart disease HLD (hyperlipidemia) Sister Hypertension Grandfather Hypertension Heart disease HLD (hyperlipidemia) Surgical History History of back surgery Hx of tonsillectomy Hx of adenoidectomy Social History household members: significant other current occupational status: employed 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 Smoking Status: Never smoker alcohol intake: current alcohol intake frequency: holidays/special occasions only substance use type: does not use Past Medical/Surgical History Planned Operation Planned Operative Procedure(s): COLONOSCOPY Previous Hospitalizations/Surgeries HX Hospitalizations: No Any Problems With Anesthesia: Yes (PONV) You/Your Family Experience Fever (Hyperthermia) With Anes: No Cholinesterase deficiency: No Cardiovascular Hx of Irregular Heartbeat and/or Afib: No Hx Heart Attack: No Hx Congestive Heart Failure: No Hx Rheumatic Fever: No Hx Hypertension: Yes (PER PT, CONTROLLED ON MEDS) Hx Pacemaker: No Respiratory HX of Shortness of Breath: No Hx Chronic Obstructive Pulmonary Disease (COPD): No Hx Asthma: No Hx Emphysema: No Hx Sleep Apnea: No Hx Respiratory Tract Infection/Cold (presently): No Do You Snore Loudly (louder than talking or can be heard): No Do You Often Feel Tired/ Fatigued/ Sleepy Dring Daytime?: No Has Anyone Observed You Stop Breathing During Sleep?: No Result (for STOP score): Negative Smoking Status: Never smoker Gastrointestinal Hx Ulcer: No Special diet followed at home: No Neurological Hx Seizures: No Hx Multiple Sclerosis: No Hx Parkinson's Disease: No Hx Head/Neck Injury: No Hx Headaches: Yes Hx Back Injury/Pain: Yes Does patient have nerve stimulator: No Blood Disorder Hx Hepatitis: No Hx Anemia: No Reproduction : No Is Patient Lactating: No Musculoskeletal Hx Arthritis: No Hx Gout: No Endocrine Hx Diabetes: No Thyroid Disease: No Psycho/Social Hx Anxiety: No Hx Depression: No Hx Dementia: No Miscellaneous Hx Cancer: No Recent Exposure to Contagious Disease: No Allergies Beef Containing Products Allergy (Severe, Verified 04/09/24 14:36) Hives ITCHING, SWELLING, N/V/D ketorolac (From Toradol) Allergy (Verified 04/09/24 14:36) Other SHUTS MY KIDNEYS DOWN Discharge Is Pt Admitted From a Half-Way, or a [facility]: No After D/C, Where Do you Plan to Go: Return Home Vital Signs Vital Signs Vital Signs: 04/15/24 11:08 04/15/24 11:08 Temperature 98.2 F Temperature Source Temporal Pulse Rate 79 Respiratory Rate 16 Respiratory Pattern Normal Blood Pressure 127/94 H Blood Pressure Mean 105 Blood Pressure Source Monitor Blood Pressure Position Sitting Blood Pressure Location Left Arm Pulse Ox 100 Oxygen Delivery Method Room Air Weight Weight: 264 lb 8.875 oz Body Mass Index (BMI) 41.7 Physical Exam Const alert, oriented x3 and no apparent distress HEENT normocephalic and head/scalp atraumatic Resp normal respiratory effort Cardio regular rate GI soft to palpation and non-tender; Negative for non-distended Palpation: Negative for guarding Extremity no clubbing, cyanosis or edema Skin no rashes or lesions noted Neuro CN's II-XII intact bilaterally Psych mental status grossly normal Assessment & Plan Assessment/Plan (1) Encounter for screening for malignant neoplasm of colon: (2) Gastric reflux: Surgery Risks - Colonoscopy I discussed with the patient the risks of the procedure: Yes Risks Include but are not Limited To: Risks include but are not limited to: Bleeding, perforation requiring further surgery, inability to complete colonoscopy requiring barium enema.
--- NOTE | 2024-04-15 12:30 | COLBX_PTH ---
PATIENT: SUZANNA QUISPE LOC: EN U#:[id number] AGE/SX: 48/F ROOM: RE04/15/[address]: Dr. Christie Oritz MD : 1975 BED: DIS: 04/15/2024 SPEC #: [id number] RECD: 04/15/24 15:13 STATUS: FELIZ REEstelle #: [id number] ADEOLA: 04/15/24 12:[address]: Christie Ortiz DEPT: SURGICAL PATHOLOGY RECD BY: Andrade Voss ENTERED: 04/16/24 07:14 SP TYPE: COLON BX OTHR DR: Dr. Lesli Tena, Tissues: Descending colon Procedures: Surgery Specimen Level IV HEADER OPERATION: Colonoscopy with polypectomy PRE-OP DIAGNOSIS: Encounter for screening for malignant neoplasm of colon, gastric reflux TISSUE SUBMITTED: Descending colon polyp MICROSCOPIC DIAGNOSIS Descending colon polyp, polypectomy: Consistent with inflammatory polyp. ELENA/mr 04/19/2024 MICROSCOPIC DESCRIPTION Slides are reviewed. GROSS DESCRIPTION Received in fixative is one container labeled with the patient's name and designated Descending polyp. The specimen consists of a mora-pink polyp measuring 0.7 x 0.5 x 0.3cm. Also present in the container is a small piece of mora soft tissue measuring 0.2 x 0.2 x 0.1cm. The entire specimen is submitted in one cassette. ELENA/ 04/16/2024 TC:5 CPT:05687
--- NOTE | 2024-04-15 13:12 | OP.COLON_ITS ---
Patient Name: Alix Palmer Procedure Date: 04/15/2024 12:35 PM Date of : 1975 Age: 48 Procedure: Colonoscopy Indications: Screening for colorectal malignant neoplasm Providers: Christie Ortiz MD Referring MD: Lesli Tena Medicines: Monitored Anesthesia Care Patient Profile: This is a 48 year old female. Last Colonoscopy: none. The patient's first colonoscopy is today. Complications: No immediate complications. Procedure: Pre-Anesthesia Assessment: - Prior to the procedure, a History and Physical was performed, and patient medications and allergies were reviewed. The patient's tolerance of previous anesthesia was also reviewed. The risks and benefits of the procedure and the sedation options and risks were discussed with the patient. All questions were answered, and informed consent was obtained. Prior Anticoagulants: The patient has taken no anticoagulant or antiplatelet agents. ASA Grade Assessment: Per anesthesia. After reviewing the risks and benefits, the patient was deemed in satisfactory condition to undergo the procedure. After I obtained informed consent, the scope was passed under direct vision. Throughout the procedure, the patient's blood pressure, pulse, and oxygen saturations were monitored continuously. The Colonoscope was introduced through the anus and advanced to the cecum, identified by the appendiceal orifice, ileocecal valve and palpation. The colonoscopy was performed without difficulty. The patient tolerated the procedure well. The quality of the bowel preparation was good. Scope In: 12:50:00 PM Scope Withdrawal Time 0 hours 10 minutes 59 seconds Scope Out: 1:07:26 PM Total Procedure Duration Time 0 hours 17 minutes 26 seconds Findings: Hemorrhoids were found on perianal exam. Non-bleeding internal hemorrhoids were found. The hemorrhoids were Grade I (internal hemorrhoids that do not prolapse). A 7 mm polyp was found in the descending colon. The polyp was semi-pedunculated. The polyp was removed with a hot snare. Resection and retrieval were complete. A few small-mouthed diverticula were found in the sigmoid colon. The exam was otherwise without abnormality. Impression: - Hemorrhoids found on perianal exam. - Non-bleeding internal hemorrhoids. - One 7 mm polyp in the descending colon, removed with a hot snare. Resected and retrieved. - Diverticulosis in the sigmoid colon. - The examination was otherwise normal. Recommendation: - Discharge patient to home. - Resume previous diet. - Continue present medications. - Await pathology results. - Repeat colonoscopy in 5 years for surveillance based on pathology results. Procedure Code(s): --- Professional --- 15674, PT, Colonoscopy, flexible; with removal of tumor(s), polyp(s), or other lesion(s) by snare technique Diagnosis Code(s): --- Professional --- Z12.11, Encounter for screening for malignant neoplasm of colon K64.0, First degree hemorrhoids D12.4, Benign neoplasm of descending colon K57.30, Diverticulosis of large intestine without perforation or abscess without bleeding CPT copyright 2021 [employer]. All rights reserved. The codes documented in this report are preliminary and upon teacher of the deaf review may be revised to meet current compliance requirements. MD Christie Dutta MD 04/15/2024 1:12:08 PM This report has been signed electronically. Number of Addenda: 0 Note Initiated On: 04/15/2024 12:35 PM
--- NOTE | 2024-04-15 13:13 | OP.CCLET_ITS ---
04/15/2024 Lesli Tena [address] [place] [address] Re : Colonoscopy procedure for Alix Palmer Dear Dr. eTna This procedure was performed on March. My impressions and recommendations are as follows: Impressions : - Hemorrhoids found on perianal exam. - Non-bleeding internal hemorrhoids. - One 7 mm polyp in the descending colon, removed with a hot snare. Resected and retrieved. - Diverticulosis in the sigmoid colon. - The examination was otherwise normal. Recommendations : - Discharge patient to home. - Resume previous diet. - Continue present medications. - Await pathology results. - Repeat colonoscopy in 5 years for surveillance based on pathology results. My findings are described in the full procedure note, which is enclosed. If I can be of further assistance, please feel free to contact me at Doctor phone number(s): , Work: . Sincerely, MD Christie Dutta MD 04/15/2024 1:12:08 PM This report has been signed electronically.
--- NOTE | 2024-04-15 13:14 | PCM.POST.ANE ---
Anesthesia: Postop Eval I Current Vital Signs Temperature: 97 F Pulse Rate: 78 Blood Pressure: 90/49 Respiratory Rate: 6 Pulse Ox: 100 Oxygen Delivery Method: Room Air Assessment Airway patent: Yes Spontaneous unlabored respirations: Yes Mental status: Awake and Calm nausea: No Vomiting: No Anesthesia Complication: No Fluid Hydration Crystalloid volume administer (ml): 600 Total IV fluid infused: 600 Progress Note Anesthesia document: Postop Eval 1 completed: Yes
--- NOTE | 2024-04-15 13:19 | PCM.POSTANE2 ---
Anesthesia Postop Eval I Sum Postop Eval Completion status Anesthesia document: Postop Eval 1 completed: Yes Anesthesia Postop Eval I Summary Anesthesia Postop Eval I Summary: Anesthesia Postop Eval I: Assessment Summary Airway patent Yes 04/15/24 13:16 Spontaneous unlabored Yes 04/15/24 13:16 respirations Mental status Awake,Calm 04/15/24 13:16 nausea No 04/15/24 13:16 Vomiting No 04/15/24 13:16 Anesthesia Postop Eval I: Fluid Summary Crystalloid volume administer 600 04/15/24 13:16 (ml) Colloids volume administered ( ml) Blood Product volume administered (ml) Total IV fluid infused 600 04/15/24 13:16 Anesthesia Postop Eval I: Summary Notes Anesthesia Complication No 04/15/24 13:16 Anesthesia Complication Comment: Post-operative progress note Anesthesia: Postop Eval II Evaluation Mental status: Awake Pain Level: 0 nausea: No Vomiting: No Complications Anesthesia Complication: No
== END 2024-04-15 14:20 | disposition home or self-care (01) ==
LOC: EN 10:49 → AC 10:50
PROVIDERS: Anesthesiology; PCP Internal Medicine; Referring Provider Internal Medicine; Visit Provider Surgery
PROC: 0DJD8ZZ Inspection of Lower Intestinal Tract, Via Natural or Artificial Opening Endoscopic (ICD-10-PCS; CPT 45378; principal; 2024-04-15 12:25)
DX: Z12.11 Encounter for screening for malignant neoplasm of colon (principal); K21.9 Gastro-esophageal reflux disease without esophagitis; K64.0 First degree hemorrhoids; K63.5 Polyp of colon; K57.30 Diverticulosis of large intestine without perforation or abscess without bleeding; E78.00 Pure hypercholesterolemia, unspecified; K64.4 Residual hemorrhoidal skin tags; F41.9 Anxiety disorder, unspecified; I10 Essential (primary) hypertension; Z79.899 Other long term (current) drug therapy
CPT/HCPCS: 45385; 81025; 88305; J7120; J2405

== ENCOUNTER → 2024-07-03 | Outpatient (CLI) | payer OTHER, SELFPAY ==
[2024-07-03 09:24] LABS: Mucous, Urine 0 SEEN /hpf (<or=2+)
[2024-07-03 10:05] LABS: Absolute Lymphocyte Count 2.29 X10^3/uL (0.83-4.51); Absolute Neutrophil Count 4.5 X10^3/uL (2.0-7.7); Basophil# 0.05 X10^3/uL; Basophil% 0.7 % (0-1); Eosinophil# 0.23 X10^3/uL; Hematocrit 39.4 % (37-47); Hemoglobin 12.6 g/dL (12.0-15.0); Lymphocyte # 2.29 X10^3/ul (0.83-4.51); Lymphocyte % 30.1 % (19-41); Mean Corpuscular Hgb 29.6 pg (27.0-32.0); Mean Corpuscular Volume 92.5 fL (81-99); Mean Platelet Vol. 10.8 fl (6.2-12.0); Monocyte# 0.54 X10^3/uL; Monocyte% 7.1 % (0-10); NRBC Flagged by Analyzer 0 % (0-5); Neutrophil # 4.47 X10^3/uL (2.7-7.7); Neutrophil % 58.8 % (47-70); Platelet Count 324 K/mm3 (150-450); RBC Distribution Width CV 12.4 % (11.6-14.6); RBC Distribution Width SD 42.2 fl (35.1-43.9); Red Blood Count 4.26 M/mm3 (4.2-5.4); White Blood Count 7.6 K/mm3 (4.4-11.0)
[2024-07-03 10:06] LABS: Color, Urine Straw (Yellow); Glucose, Dipstick Normal (Normal); Ketone-Dipstick Negative (Negative); Leukocyte Esterase-Dipstick 25 /ul (Negative); Nitrite-Dipstick Negative (Negative); Occult Blood-Urine 250 /ul (Negative); Protein-Dipstick 30 mg/dl (Negative); Urine Bilirubin Dipstick Negative (Negative); Urine Clarity Turbid (Clear); Urine Urobilinogen Normal (Normal); Urine pH 6.5 (5.0 - 8.0)
[2024-07-03 10:31] LABS: Hemoglobin A1c 5.5 % (3.8-5.6)
[2024-07-03 10:34] LABS: ALB/GLOB Ratio 0.6 RATIO (0.9-2.4); AST(SGOT) 14 U/L (15-37); Alanine Aminotransfer ALT/SGPT 17 U/L (13-56); Alkaline Phosphatase 108 U/L (45-117); Anion Gap 10 (5-15); BUN 14 mg/dL (7-18); BUN/Creat Ratio 23.8 RATIO (10-20); Calcium,Total 8.8 mg/dL (8.5-10.1); Chloride 106 mmol/L (98-107); Cholesterol 208 mg/dL (200); Creatinine, Serum 0.59 mg/dL (0.55-1.02); EST Glomerular Filtration Rate 117 mL/min (>60); Est Glom Filt Rate - Afr Amer 141 mL/min (>60); Globulin 4.8 g/dL (2.2-4.2); Glucose 103 mg/dL (74-106); High Density Lipoprotein 49 mg/dL; Potassium 3.5 mmol/L (3.5-5.1); Protein, Total 7.8 g/dL (6.4-8.2); Sodium Level 138 mmol/L (136-145); Triglycerides 115 mg/dL; Very Low Density Lipoprotein 23 mg/dL (5-40)
[2024-07-03 10:38] LABS: Microalbumin,Random Urine 33.8 mg/L (NO RANGE EST.); Microalbumin:Creatinine Ratio 19.2 mg/g CRE (<30 mg/g CRE)
[2024-07-03 11:12] LABS: Bacteria RARE /hpf (None Seen); Red Blood Cells-Urine > 100 SEEN /hpf (0-5); Squamous Epithelial Cells - UA 0-5 SEEN /hpf (5-10); White Blood Cells 5-10 SEEN /hpf (0-5)
== END | disposition home or self-care (01) ==
LOC: LAB 09:17
PROVIDERS: PCP Internal Medicine; Referring Provider Internal Medicine; Visit Provider Internal Medicine
DX: R73.09 Other abnormal glucose (principal); E55.9 Vitamin D deficiency, unspecified
CPT/HCPCS: 36415; 80053; 80061; 81001; 82043; 82306; 82570; 83036; 84443; 85025

== ENCOUNTER → 2024-11-06 | Outpatient (CLI) | payer OTHER, SELFPAY ==
[2024-11-06 09:59] LABS: Cholesterol 207 mg/dL (200); High Density Lipoprotein 54 mg/dL; Triglycerides 171 mg/dL; Very Low Density Lipoprotein 34 mg/dL (5-40)
[2024-11-08 09:08] LABS: Vitamin D,25 Hydroxy 34.7 ng/mL
[2024-11-09 16:08] LABS: PROEL- A/G Ratio 0.7 (0.7-1.7); PROEL- Albumin 3.1 g/dL (2.9-4.4); PROEL- Alpha-1 Globulin 0.2 g/dL (0.0-0.4); PROEL- Beta Globulin 1.3 g/dL (0.7-1.3); PROEL- Gamma Globulin 1.9 g/dL (0.4-1.8); PROEL- Globulin, Total 4.4 g/dL (2.2-3.9); PROEL- TOTAL PROTEIN 7.5 g/dL (6.0-8.5); PROEL-M-Spike Not Observed g/dL (Not Observed); PROELU- Alpha-1-Globulin,Ur 4.1 % (.); PROELU- Alpha-2-Globulin,Ur 22.7 % (.); PROELU- Beta Globulin, Ur 26.4 % (.); PROELU- Gamma Globulin, Ur 27.8 % (.); Total Protein, Ur 8.7 mg/dL (Not Estab.)
== END | disposition home or self-care (01) ==
LOC: LAB 09:06
PROVIDERS: PCP Internal Medicine; Referring Provider Internal Medicine; Visit Provider Internal Medicine
DX: R77.1 Abnormality of globulin (principal); E78.2 Mixed hyperlipidemia; E55.9 Vitamin D deficiency, unspecified
CPT/HCPCS: 36415; 80061; 82306; 84165; 84166

== ENCOUNTER → 2025-02-10 | Outpatient (CLI) | payer OTHER, SELFPAY ==
--- NOTE | 2025-02-10 16:50 | CT_ITS ---
PROCEDURE: ABDOMEN W/WO IV CONTRAST 02/10/2025 REASON FOR EXAM: HEPATIC LESION TECHNIQUE: Abdomen CT with intravenous contrast. Coronal and Sagittal reconstruction series were provided. One or more dose reduction techniques were used (e.g., Automated exposure control, adjustment of the mA and/or kV according to patient size, use of iterative reconstruction technique. COMPARISON: None FINDINGS: Subtle hypodense lesion along the right hepatic dome measuring up to 2.4 cm width peripheral nodular contrast enhancement which becomes isointense on delayed imaging favoring a hemangioma. No other hepatic lesions identified. Spleen, pancreas and adrenal glands are intact. Gallbladder is contracted. No significant biliary ductal dilation. Kidneys enhance symmetrically. No suspicious renal mass, calculi or hydronephrosis. Partially duplicated right renal collecting system. No bowel obstruction, focal bowel wall thickening or significant perienteric inflammation. No free air or free fluid. Mildly calcified nonaneurysmal abdominal aorta. No bulky adenopathy. Superficial soft tissues are within normal limits. No acute osseous abnormality. Mild degenerative changes of the spine. CT/Abdomen W/WO IV Contrast IMPRESSION: Enhancing lesion along the right hepatic dome with imaging characteristics cons istent with a hemangioma. Reading Location: [facility]
== END | disposition home or self-care (01) ==
PROVIDERS: PCP Internal Medicine; Referring Provider Internal Medicine; Visit Provider Internal Medicine
DX: K76.9 Liver disease, unspecified (principal)
CPT/HCPCS: 74170; Q9967; A4216

== ENCOUNTER → 2025-03-19 | Outpatient (CLI) | payer OTHER, SELFPAY ==
[2025-03-19 11:49] LABS: Color, Urine Yellow (Yellow); Glucose, Dipstick Normal (Normal); Ketone-Dipstick Negative (Negative); Leukocyte Esterase-Dipstick Negative /ul (Negative); Nitrite-Dipstick Negative (Negative); Occult Blood-Urine 10 /ul (Negative); Protein-Dipstick 30 mg/dl (Negative); Urine Bilirubin Dipstick Negative (Negative); Urine Clarity Sl. Cloudy (Clear); Urine Urobilinogen Normal (Normal); Urine pH 6.5 (5.0 - 8.0)
[2025-03-19 11:50] LABS: Absolute Lymphocyte Count 2.02 X10^3/uL (0.83-4.51); Absolute Neutrophil Count 3.9 X10^3/uL (2.0-7.7); Basophil# 0.06 X10^3/uL; Basophil% 0.9 % (0-1); Eosinophil# 0.16 X10^3/uL; Eosinophils% 2.3 % (0-5); Hematocrit 38.4 % (37-47); Hemoglobin 12.4 g/dL (12.0-15.0); Lymphocyte # 2.02 X10^3/ul (0.83-4.51); Mean Corp Hgb Conc 32.3 g/dL (32-36); Mean Corpuscular Hgb 28.4 pg (27.0-32.0); Mean Corpuscular Volume 88.1 fL (81-99); Mean Platelet Vol. 10.9 fl (6.2-12.0); Monocyte# 0.82 X10^3/uL; Monocyte% 11.8 % (0-10); NRBC Flagged by Analyzer 0 % (0-5); Neutrophil # 3.89 X10^3/uL (2.7-7.7); Neutrophil % 55.7 % (47-70); Platelet Count 310 K/mm3 (150-450); RBC Distribution Width SD 45.1 fl (35.1-43.9); RET-HE 31.7 pg (30-35); Red Blood Count 4.36 M/mm3 (4.2-5.4); Reticulocyte Count 1.72 % (0.5-1.5)
[2025-03-19 11:56] LABS: Bacteria 2+ /hpf (None Seen); Mucous, Urine 1+ /hpf (<or=2+); Red Blood Cells-Urine 0-5 SEEN /hpf (0-5); Squamous Epithelial Cells - UA 0-5 SEEN /hpf (5-10); White Blood Cells 0-5 SEEN /hpf (0-5)
[2025-03-19 12:05] LABS: Erythrocyte Sedimentation Rate 31 mm/hr (0-30)
[2025-03-19 12:07] LABS: Partial Thromboplast Time 23.8 Seconds (24.1-36.2); Prothrombin Time (Protime)PT. 13.1 SECONDS (11.7-14.9)
[2025-03-19 12:20] LABS: Hemoglobin A1c 5.3 % (<=5.6)
[2025-03-19 12:36] LABS: ALB/GLOB Ratio 0.9 RATIO (0.9-2.4); AST(SGOT) 27 U/L (<=31); Alanine Aminotransfer ALT/SGPT 20 U/L (<=34); Albumin, Serum 3.7 g/dL (3.5-5.0); Alkaline Phosphatase 118 U/L (35-104); Anion Gap 11 (5-15); BUN 10 mg/dL (4-19); BUN/Creat Ratio 16.4 RATIO (10-20); Calcium,Total 8.6 mg/dL (7.6-11.0); Carbon Dioxide 22.6 mmol/L (21.0-32.0); Chloride 102 mmol/L (98-108); Creatinine, Serum 0.58 mg/dL (0.70-1.20); EST Glomerular Filtration Rate 112 (>60); Globulin 3.9 g/dL (2.2-4.2); Glucose 100 mg/dL (70-99); Potassium 4.1 mmol/L (3.3-5.1); Protein, Total 7.7 g/dL (5.9-8.4); Sodium Level 135 mmol/L (133-145); Total Bilirubin 0.44 mg/dL (0.00-1.30); Vitamin B12 609 pg/mL (180-914)
[2025-03-19 13:45] LABS: LDH 198 U/L (84-246); Phosphorus 2.9 mg/dL (2.7-4.5); Uric Acid 4.3 mg/dL (2.6-6.0)
[2025-03-23 16:09] LABS: Albumin 3.3 g/dL (2.9-4.4); Alpha-1-Globulins 0.3 g/dL (0.0-0.4); Alpha-2-Globulins 0.8 g/dL (0.4-1.0); Free Kappa Light Chains 30.8 mg/L (3.3-19.4); Free Lambda Light Chains 20.6 mg/L (5.7-26.3); GGTP 27 IU/L (0-60); Gamma Globulin 1.7 g/dL (0.4-1.8); Hepatitis B Core Ab Total Negative (Negative); Immunoglobulin A 380 mg/dL (87-352); Immunoglobulin G 1875 mg/dL (586-1602); Immunoglobulin M 109 mg/dL (26-217); PROEL- TOTAL PROTEIN 7.3 g/dL (6.0-8.5)
== END | disposition home or self-care (01) ==
LOC: LAB 10:15
PROVIDERS: PCP Internal Medicine; Referring Provider Internal Medicine; Visit Provider Internal Medicine
DX: D47.2 Monoclonal gammopathy (principal); R73.09 Other abnormal glucose
CPT/HCPCS: 36415; 80053; 81001; 82607; 82746; 82784; 82977; 83036; 83615; 83735; 83883; 84100; 84165; 84439; 84443; 84550; 85025; 85045; 85610; 85652; 85730; 86140; 86334; 86704; 87086; 87088

== ENCOUNTER → 2025-04-12 | Outpatient (CLI) | payer OTHER, SELFPAY ==
--- NOTE | 2025-04-12 08:50 | RAD_ITS ---
PROCEDURE: BONE SURVEY COMP(AXIAL APPEND) 04/12/2025 REASON FOR EXAM: MONOCLONAL GAMMOPATHIES F, age 49 y/o . TECHNIQUE: Skeletal survey. COMPARISON: None. FINDINGS: No lytic or blastic aggressive bone lesion is identified. No fracture or dislocation is seen. No periosteal reaction is noted. Mild diffuse spondylosis. RAD/Bone Survey Comp(Axial&Append) IMPRESSION: No suspicious bone lesion is identified. Reading Location[facility]
--- OUTSIDE RECORDS SUMMARY | 2025-04-12 18:33 | XMS RPT_ITS | CCD ---
Author Organization [facility] Care Team Providers Care Transport Coordinator Name Role Phone Lesli Márquez DO Unavailable Melo RN, Octavia Unavailable Unavailable Erick ARRIOLA, Violet Villafuerte Unavailable Unavailable Coagulator, System Unavailable Unavailable Heena Maciel Unavailable Unavailable Michael TECHNICAL SERVICES ASSISTANT, Saleem Unavailable Unavailable Unavailable Unavailable [employer] OFFICER, Sofiya Unavailable Unavailable [place] TECHNICAL SERVICES ASSISTANT, Alycia Unavailable Unavailable [place] [employer]ICER, Kayela Unavailable Unavailable Lesli Márquez DO Unavailable Andrea Cordero MD Unavailable Lesli Márquez DO Attending Unavailable Lesli Márquez DO Consulting Unavailable Unavailable Unavailable [facility] Attending Unavailable LESLI MÁRQUEZ Primary Care Unavailable Lesli Márquez DO Primary Care Provider [phone] LESLI MÁRQUEZ Referring Unavailable LESLI MÁRQUEZ Primary Care Unavailable Dr. Lesli Márquez DO Primary Care Provider Dr. Lesli Márquez DO Attending Provider Dr. Lesli Márquez DO Referring Provider [phone] Gardenia Christensen Attending Provider [phone] Lesli Márquez DO Primary Care Provider [phone] Dr. Lesli Márquez DO Attending Provider [phone] Dr. Lesli Márquez DO Referring Provider Lesli Márquez Referring Unavailable Lesli Márquez Primary Care Unavailable Darinel, Lesli Attending Unavailable Robotham, Christie Attending Unavailable Darinel, Lesli Referring Unavailable Darinel, Lesli Primary Care Unavailable Darinel, Lesli Referring Unavailable Darinel, Lesli Primary Care Unavailable Robotham, Christie Consulting Unavailable Robotham, Christie Attending Unavailable Darinel, Lesli Referring Unavailable Dawson, Gardenia Attending Unavailable Darinel, Lesli Primary Care Unavailable Darinel, Lesli Referring Unavailable Darinel, Lesli Primary Care Unavailable Darinel, Lesli Attending Unavailable Darinel, Lesli Attending Unavailable Darinel, Lesli Referring Unavailable Darinel, Lesli Primary Care Unavailable Darinel, Lesli Attending Unavailable Darinel, Lesli Referring Unavailable Darinel, Lesli Primary Care Unavailable Darinel, Lesli Attending Unavailable Darinel, Lesli Referring Unavailable Darinel, Lesli Primary Care Unavailable Allergies Allergy Classification Reported Allergen(s) Allergy Type Date of Onset Reaction(s) Facility (20 sources) Ketorolac; Translations: [TORADOL ORAL, 10MG (Oral Tablet)] Drug Allergy 2 Other [facility] Work Phone: Comment on above: kidneys shut down SHUTS MY KIDNEYS DO WN (20 sources) beef allergenic extract Drug Allergy [facility]; [facility] Work Phone: Comment on above: Nausea (1 source) ALLERGIES NOT ON FILE; Translations: [ALLERGIES NOT ON FILE] Propensity to adverse reactions (disorder) [facility] 2 Repository (2 sources) Latex Allergy to substance 5 Rash [facility] (2 sources) Beef Containing Products Allergy to substance 4 Hives [facility] Comment on above: ITCHING, SWELLING, N /V/D (1 source) Ketorolac Drug Allergy 4 [facility] Repository (1 source) Latex Drug allergy (disorder) 5 [facility] Repository (1 source) Beef Containing Products Drug allergy (disorder) 4 [facility] Repository Medications Current Medications Medication Drug Class(es) Dates Sig (Normalized) Sig (Original) amLODIPine 10 mg oral tablet (2 sources) Dihydropyridine Calcium Channel Tanika Start: 02-11-2025 take 1 tablet by mouth once daily Amlodipine 10 mg tablet Active 10 mg PO daily February 11, 2025 12:00am escitalopram 10 mg oral tablet (2 sources) Serotonin Reuptake Inhibitor Start: 03-25-2024 take 1 tablet by mouth once daily Escitalopram Oxalate 10 mg tablet Active 10 mg PO DAILY March 25, 2024 12:00am Fluticasone Furoate-Vilanterol (2 sources) Start: 02-11-2025 Fluticasone Furoate-Vilantero l (Breo Ellipta) 50-25 mcg/dose blister with device Active INHALATION February 11, 2025 12:00am melatonin 3 mg oral tablet (2 sources) Start: 02-11-2025 take 1 tablet by mouth at bedtime as needed Melatonin 3 mg tablet Active 3 mg PO BEDTIME as needed February 11, 2025 12:00am MITOCORE (2 sources) Start: 04-09-2024 MITOCORE Active 4 {tbl} DAILY April 09, 2024 12:00am Multivitamin preparation (20 sources) Start: 08-14-2022 take 1 tablet by mouth once daily Multivitamin Active 1 TABLET PO DAILY August 13, 2022 11:00pm Start: 08-14-2022 take 1 tablet by ramos th once daily Multivitamin Active 1 TABLET PO DAILY August 14, 2022 12:00am MULTIVITAMIN (Or al Liquid) for 0 days Refills: 0 Ordered: 10-Jul-2022 [place] [employer]ICER, Kayela Active MULTIVITAMIN (Or al Liquid) for 0 days Refills: 0 Ordered: 16-May-2022 [employer] OFFICER, Sofiya Active MULTIVITAMIN (Or al Liquid) for 0 days Refills: 0 Ordered: 11-Mar-2022 [place] TECHNICAL SERVICES ASSISTANT, Alycia Active MULTIVITAMIN (Or al Liquid) for 0 days Refills: 0 Ordered: 20-Jul-2009 Octavia Alejo RN Active ondansetron 4 mg disintegrating oral tablet (8 sources) Serotonin-3 Receptor Antagonist Start: 03-02-2022 take 4 mg by mouth every six hours Ondansetron Active 4 MG PO EVERY 6 HOURS March 02, 2022 9:56am zofran prn Inact delonte zofran prn Activ e pantoprazole 40 mg delayed release oral tablet (2 sources) Proton Pump Inhibitor Start: 03-25-2024 take 1 tablet by mouth at bedtime Pantoprazole 40 mg tablet,delayed release (DR/EC) Active 40 mg PO AT BEDTIME March 25, 2024 12:00am traZODone hydrochloride 50 mg oral tablet (2 sources) Serotonin Reuptake Inhibitor Start: 02-11-2025 take 1 tablet by mouth once daily Trazodone 50 mg tablet Active 50 mg PO daily February 11, 2025 12:00am Completed/Discontinued Medications Medication Drug Class(es) Dates Sig (Normalized) Sig (Original) acetaminophen 500 mg / HYDROcodone bitartrate 5 mg oral tablet (20 sources) Opioid Agonist Start: 12-28-2008 End: 07-20-2009 take 1-2 tablets by mouth every four hours as needed HYDROCODONE-ACETAM INOPHEN, 5-500MG (Oral Tablet) 1-2 Tablet Q 4hr/PRN for 0 days Quantity: 30 {Tablet} Refills: 0 Ordered: 28-Dec-2008 Octavia Alejo RN Start : 28-Dec-2008 End : 20-Jul-2009 Inactive acyclovir 400 mg oral tablet (17 sources) Herpesvirus Nucleoside Analog DNA Polymerase Inhibitor, Herpes Simplex Virus Nucleoside Analog DNA Polymerase Inhibitor, Herpes Zoster Virus Nucleoside Analog DNA Polymerase Inhibitor take 1 mg by mouth three times daily Acyclovir 400 MG Oral Tablet tid for 7 days (400 MG) Inactive amitriptyline hydrochloride 25 mg oral tablet (20 sources) Tricyclic Antidepressant take 1 tablet by mouth once daily at bedtime AMITRIPTYLINE HCL, 25MG (Oral Tablet) 1 qhs (25 MG) Inactive amoxicillin 875 mg / clavulanate 125 mg oral tablet (20 sources) Penicillin-class Antibacterial Start: 12-28-2008 End: 01-11-2009 take 1 tablet by mouth twice daily AUGMENTIN, 875-125MG (Oral Tablet) 1 (one) Tablet BID for 0 days Quantity: 20 {Tablet} Refills: 0 Ordered: 28-Dec-2008 Octavia Alejo RN Start : 28-Dec-2008 End : 11-Jan-2009 Inactive azithromycin 250 mg oral tablet (4 sources) Macrolide Antimicrobial Start: 11-14-2022 End: 03-13-2023 take 1 tablet by mouth once daily Zithromax Z-Steven 250 mg oral tablet tad tablet qd for 0 days Quantity: 1 {Packet} Refills: 0 Ordered: 13-Mar-2023 Austin Cedillo CMA Start : 14-Nov-2022 End : 13-Mar-2023 Inactive Comments: dispense one package Comment on above: dispense one package betamethasone 0.5 mg/ml / clotrimazole 10 mg/ml topical cream (20 sources) Azole Antifungal, Corticosteroid Start: 05-24-2010 End: 03-28-2022 LOTRISONE, 1-0.05% (External Cream) apply to affected area under Cream bid for 0 days Quantity: 30 {Cream} Refills: 0 Ordered: 28-Mar-2022 Sofiya Logan CMA Start : 24-May-2010 End : 28-Mar-2022 Discontinued Comments: This order discontinued per [facility]. Comment on above: use under axilla / a ffected area This order discontin ued per [facility]. CALCIUM & MAGNESIUM CARBONATES, 311-232MG (Oral Capsule) (20 sources) End: 03-11-2022 take 1 capsule by mouth three times daily CALCIUM & MAGNESIUM CARBONATES, 311-232MG (Oral Capsule) 1 tid for 0 days Refills: 0 Ordered: 11-Mar-2022 Alycia Maldonado LPN End : 11-Mar-2022 Discontinued Comments: This order discontinued per [facility]. take 1 capsule by [facility] three times daily CALCIUM & MAGNESIUM CARBONATES, 311-232M G (Oral Capsule) 1 tid for 0 days Refills: 0 Ordered: 20-Jul-2009 Octavia Alejo RN Active Comment on above: This order discontin ued per [facility]. ergocalciferol 1.25 mg oral capsule (20 sources) Provitamin D2 Compound Start: 0 End: 2 take 1 tablet by mouth every week, then take 1 tablet by mouth every week Drisdol 1.25 MG (06865 UT) Oral Capsule tad Capsule weekly for 0 days Quantity: 8 {Capsule} Refills: 4 Ordered: 11-Mar-2022 Alycia Maldonado LPN Start : 24-May-2010 End : 11-Mar-2022 Inactive Comments: 1 tab 2 x week for 4 weeks then 1 tab weekly End: 08-16-2022 take 1 tablet by mouth every week ERGOCALCIFEROL, 95045ND (PO Tab) 1 qo week for 0 days Refills: 0 Ordered: 16-Aug-2022 Saleem Rodriguez LPN End : 16-Aug-2022 Discontinued Comments: This order discontinued per [facility]. Comment on above: 1 tab 2 x week for 4 weeks then 1 tab weekly This order discontin ued per [facility]. 168 hr ethinyl estradiol 0.42828 mg/hr / norelgestromin 0.67698 mg/hr transdermal system (20 sources) Progestin, Estrogen Start: 008 End: 022 apply 1 dose transdermal route every week ORTHO EVRA, 150-20MCG/24HR (Transdermal Patch Weekly) 1 Patch Weekly q week for 0 days Refills: 0 Ordered: 11-Mar-2022 Erica CHAMBERSAlycia Start : 27-Jul-2008 End : 11-Mar-2022 Discontinued Comments: This order discontinued per [facility]. Comment on above: This order discontin ued per [facility]. fluconazole 150 mg oral tablet (20 sources) Azole Antifungal Start: End: take 1 tablet by mouth once daily DIFLUCAN, 150MG (Oral Tablet) 1 (one) Tablet Daily x 1 for 0 days Quantity: 1 {Tablet} Refills: 0 Ordered: 11-Jan-2009 Octavia Alejo RN Start : 11-Jan-2009 End : 20-Jul-2009 Inactive ibuprofen 400 mg oral tablet (20 sources) Nonsteroidal Anti-inflammatory Drug Start: 009 take 1 tablet by mouth every six hours MOTRIN, 400MG (Oral Tablet) 1 (one) Tablet Q 6 hr for 0 days Refills: 0 Ordered: 24-May-2010 Octavia Alejo RN Start : 28-Dec-2008 Inactive lisinopril 10 mg oral tablet (18 sources) Angiotensin Converting Enzyme Inhibitor Start: 024 End: 025 take 1 tablet by mouth twice daily Lisinopril 10 mg tablet Discontinued 10 mg PO TWICE A DAY April 09, 2024 12:00am February 11, 2025 8:59am Start: 07-15-2023 take 1 tablet by ramos th once daily lisinopriL 10 mg oral tablet 1 (one) Tablet daily for 90 days Quantity: 90 {Tablet} Refills: 0 Ordered: 15-Jul-2023 Lesli Márquez DO, DO, Kathleen Start : 15-Jul-2023 Active Start: 06-24-2023 take 1 tablet by ramos th once daily lisinopriL 10 mg oral tablet 1 (one) Tablet daily for 0 days Quantity: 30 {Tablet} Refills: 0 Ordered: 24-Jun-2023 Darinel VIRK Lesli Márquez DO Lesli Start : 24-Jun-2023 Active Start: 08-14-2022 End: 04-09-2024 take 1 tablet by mouth once daily Lisinopril 10 mg tablet Discontinued 10 mg PO DAILY August 14, 2022 12:00am April 09, 2024 2:40pm methylPREDNISolone 4 mg oral tablet (20 sources) Corticosteroid METHYLPREDNISOLO NE, 4MG (Oral Tablet) uad (4 MG) Inactive oseltamivir 75 mg oral capsule (20 sources) Neuraminidase Inhibitor Start : 12-28 End: 01-11 take 1 capsule by mouth twice daily TAMIFLU, 75MG (Oral Capsule) 1 (one) Capsule Twice daily for 0 days Quantity: 10 {Capsule} Refills: 0 Ordered: 28-Dec-2008 Octavia Alejo RN Start : 28-Dec-2008 End : 11-Jan-2009 Inactive oxyCODONE hydrochloride 5 mg oral capsule (20 sources) Opioid Agonist Start : 10-03 End: 12-02 take 1 capsule by mouth every four hours as needed OXYCODONE HCL, 5MG (Oral Capsule) 1 Capsule q4hrs prn for 60 days Quantity: 60 {Capsule} Refills: 0 Ordered: 03-Oct-2010 Octavia Alejo RN Start : 03-Oct-2010 End : 02-Dec-2010 Inactive Comments: sixty Comment on above: sixty promethazine hydrochloride 25 mg oral tablet (20 sources) Phenothiazine Start : 12-28 End: 01-11 take 1 tablet by mouth every eight hours as needed for vomiting and nausea PHENERGAN, 25MG (Oral Tablet) 1 (one) Tablet Q 8 hr prn vomiting and nausea for 0 days Quantity: 10 {Tablet} Refills: 0 Ordered: 28-Dec-2008 Octavia Alejo RN Start : 28-Dec-2008 End : 11-Jan-2009 Inactive Teriparatide (20 sources) Parathyroid Hormone Analog Start : 07-27 End: 03-11 FORTEO, 750MCG/3ML (Subcutaneous Solution) 1 Solution qd for 0 days Refills: 0 Ordered: 11-Mar-2022 Shekhar Maldonado LPNa Start : 27-Jul-2008 End : 11-Mar-2022 Discontinued Comments: This order discontinued per -. Start: 07-27-2008 FORTEO, 750MCG /3ML (Subcutaneous Solution) 1 Solution qd for 0 days Refills: 0 Ordered: 08-Aug-2010 Octavia Alejo RN Start : 27-Jul-2008 Active Comment on above: This order discontin ued per -. Tyrosine-Acetylcy steine (Adrenamax) 400-133 mg capsule (2 sources) Start: 4 End: 5 take 1 capsule by mouth twice daily Tyrosine-Acetylcystei ne (Adrenamax) 400-133 mg capsule Discontinued 3 NMA PO TWICE A DAY April 09, 2024 12:00am February 11, 2025 8:59am vitamin d3 (5 sources) vitamin d3 weekl y Inactive Problems Active Problems Problem Classification Problem Date Documented Date Episodic/Chronic Abdominal pain (20 sources) Abdominal pain; Translations: [Unspecified abdominal pain] Resolved: 03-28-2022 03-11-2022 Episodic Administrative/social admission (20 sources) Patient encounter status; Translations: [Nutritional counseling] 03-28-2022 Episodic Allergic reactions (20 sources) Inflammatory dermatosis; Translations: [Dermatitis] Resolved: 03-06-2009 03-06-2009 Episodic Comment on above: contact? try otc hyd rocortisone cream first Aortic; peripheral; and visceral artery aneurysms (4 sources) Aneurysm of thoracic aorta; Translations: [Thoracic aortic aneurysm (TAA)] 02-11-2025 Chronic Asthma (2 sources) Asthma; Translations: [Unspecified asthma, uncomplicated] 02-11-2025 Chronic Coronary atherosclerosis and other heart disease (16 sources) Coronary atherosclerosis and other heart disease Diseases of white blood cells (20 sources) Leukocytosis; Translations: [Leukocytosis, unspecified type] 03-28-2022 Chronic Disorders of lipid metabolism (20 sources) Hyperlipidemia; Translations: [Hyperlipidemia] 07-25-2015 Chronic Comment on above: diet exercise Esophageal disorders (3 sources) Gastric reflux; Translations: [Gastro-esophageal reflux disease without esophagitis] Onset: 04-28-2024 04-15-2024 Chronic Essential hypertension (20 sources) Elevated blood pressure; Translations: [Essential (primary) hypertension] 08-16-2022 Chronic Fever of unknown origin (20 sources) Fever; Translations: [Fever] Resolved: 03-06-2009 03-05-2022 Episodic Fluid and electrolyte disorders (20 sources) Dehydration; Translations: [Dehydration] Resolved: 07-20-2009 03-05-2022 Episodic Hemorrhoids (20 sources) Hemorrhoids; Translations: [Hemorrhoids] 08-01-2015 Episodic Mycoses (20 sources) Candidiasis; Translations: [Candidiasis, unspecified] Resolved: 03-06-2009 03-05-2022 Episodic Nausea and vomiting (20 sources) Vomiting; Translations: [Vomiting] Resolved: 03-06-2009 03-05-2022 Episodic Neoplasms of unspecified nature or uncertain behavior (2 sources) Monoclonal gammopathy; Translations: [Monoclonal gammopathy] Onset: 03-24-2025 Chronic Nutritional deficiencies (20 sources) Vitamin D deficiency; Translations: [Vitamin D deficiency, unspecified] 03-05-2022 Chronic Osteoporosis (20 sources) Osteoporosis; Translations: [Osteoporosis] 09-05-2015 Chronic Other and unspecified benign neoplasm (20 sources) Hemangioma of liver; Translations: [Hemangioma of liver] 03-28-2022 Episodic Other and unspecified benign neoplasm (4 sources) Benign neoplastic disease; Translations: [Xanthofibroma] 03-13-2023 Episodic Other circulatory disease (20 sources) Elevated blood pressure; Translations: [Elevated blood pressure reading] Resolved: 07-10-2022 03-05-2022 Episodic Comment on above: 03/05/22 at urgent ca re stressed out about h ealth right now Other circulatory disease (20 sources) Unequal blood pressure in arms; Translations: [Unequal blood pressure in upper extremities] Resolved: 05-16-2022 05-08-2022 Episodic Other connective tissue disease (20 sources) Muscle pain; Translations: [Myalgia and myositis] Resolved: 03-06-2009 03-05-2022 Episodic Other connective tissue disease (8 sources) Myalgia Episodic Other diseases of kidney and ureters (20 sources) Disorder of kidney and/or ureter; Translations: [Disorder of kidney and ureter, unspecified] 11-30-2015 Episodic Other endocrine disorders (20 sources) Hypoglycemia; Translations: [Hypoglycemia] 08-08-2010 Chronic Other eye disorders (20 sources) Xanthelasma; Translations: [Xanthelasma] 03-05-2022 Episodic Comment on above: Dx at urgent care Other female genital disorders (20 sources) Lesion of labia; Translations: [Skin tag of labia] 09-11-2022 Episodic Comment on above: irritated Other injuries and conditions due to external causes (20 sources) Fracture of unspecified bone, closed; Translations: [Fracture of unspecified bone, closed] 08-08-2010 Episodic Other injuries and conditions due to external causes (2 sources) Unspecified injury of left lower leg, initial encounter; Translations: [Unspecified injury of left lower leg, initial encounter] Onset: 09-23-2023 Episodic Other liver diseases (20 sources) Lesion of liver; Translations: [Liver lesion] 03-08-2022 Chronic Comment on above: see results of abdom en/pelvis CT done in ER 03/02/22 Other liver diseases (1 source) Liver disease, unspecified; Translations: [Liver disease, unspecified] Onset: 02-15-2025 Chronic Other lower respiratory disease (8 sources) Cough; Translations: [Cough] Resolved: 03-13-2023 11-14-2022 Episodic Other nutritional; endocrine; and metabolic disorders (20 sources) Obesity; Translations: [Non morbid obesity, unspecified obesity type] 09-08-2015 Chronic Other nutritional; endocrine; and metabolic disorders (8 sources) Obesity, unspecified Chronic Other nutritional; endocrine; and metabolic disorders (20 sources) Body mass index 40+ - severely obese; Translations: [BMI 40.0-44.9, adult] 03-11-2022 Chronic Other nutritional; endocrine; and metabolic disorders (20 sources) Morbid obesity; Translations: [Morbid obesity] 05-16-2022 Chronic Other nutritional; endocrine; and metabolic disorders (20 sources) Weight gain; Translations: [Weight gain] 08-08-2010 Episodic Other and delivery including normal (20 sources) Vaginal delivery; Translations: [Vaginal Delivery] 08-08-2010 Episodic Other skin disorders (20 sources) Eruption; Translations: [Rash] Resolved: 07-10-2022 08-08-2010 Episodic Other upper respiratory disease (20 sources) Bleeding from nose; Translations: [Epistaxis] Resolved: 07-10-2022 07-10-2022 Episodic Comment on above: fr now Other upper respiratory disease (6 sources) Anterior epistaxis; Translations: [Epistaxis] 08-22-2022 Episodic Other upper respiratory infections (20 sources) Chronic sinusitis; Translations: [Sinusitis, chronic] 07-25-2015 Chronic Other upper respiratory infections (20 sources) Acute pharyngitis; Translations: [Pharyngitis, acute] Resolved: 03-06-2009 07-25-2015 Episodic Residual codes; unclassified (20 sources) Family history of diabetes mellitus; Translations: [Family history of diabetes mellitus] 08-08-2010 Episodic Residual codes; unclassified (8 sources) Family history of diabetes mellitus Episodic Residual codes; unclassified (20 sources) Non-smoker; Translations: [Non-smoker] 03-11-2022 Episodic Spondylosis; intervertebral disc disorders; other back problems (20 sources) Displacement of lumbar intervertebral disc without myelopathy; Translations: [Displacement of lumbar intervertebral disc without myelopathy] 08-08-2010 Chronic Spondylosis; intervertebral disc disorders; other back problems (20 sources) Backache; Translations: [Backache] 07-26-2015 Episodic Unclassified (16 sources) Elevated blood pressure reading Unclassified (20 sources) Unclassified (15 sources) Liver lesion Unclassified (9 sources) Non-smoker Unclassified (8 sources) BMI 40.0-44.9, adult Unclassified (8 sources) Shingles Unclassified (3 sources) Leukocytosis, unspecified type Unclassified (4 sources) Nutritional counseling Viral infection (20 sources) Herpes zoster; Translations: [Shingles] Resolved: 03-28-2022 03-11-2022 Episodic Past or Other Problems Problem Classification Problem Date Documented Date Episodic/Chronic Acute bronchitis (20 sources) Acute bronchitis; Translations: [Acute bronchitis] Resolved: 05-24-2010 03-05-2022 Episodic Diabetes mellitus without complication (5 sources) Abnormal glucose level; Translations: [Other abnormal glucose] Onset: 07-26-2024 12-25-2024 Episodic Other hematologic conditions (1 source) Abnormality of globulin; Translations: [Abnormality of globulin] Onset: 12-01-2024 Episodic Other screening for suspected conditions (not mental disorders or infectious disease) (2 sources) Encounter for screening for malignant neoplasm of colon; Translations: [Encounter for screening for malignant neoplasm of colon] Onset: 04-28-2024 Episodic Unclassified (20 sources) Adenoidectomy; Translations: [Adenoidectomy] 08-08-2010 Unclassified (20 sources) Back Injury; Translations: [Back Injury] 08-09-2010 Unclassified (20 sources) Deliveries (Parity); Translations: [Deliveries (Parity)] 08-08-2010 Comment on above: 1 Unclassified (20 sources) Pregnancies (); Translations: [Pregnancies ()] 08-08-2010 Comment on above: 1 Unclassified (8 sources) Xanthelasma Unclassified (8 sources) LOW BACK PAIN WITH RADICULOPATHY (724.4) Unclassified (8 sources) Degenerative Disc Disease - Lumbar (722.52) Unclassified (8 sources) Rash (782.1) Unclassified (8 sources) Yeast Infection: Candidiasis of Unspecified Site (112.9) Unclassified (8 sources) Weight gain (783.1) Unclassified (5 sources) Abdominal pain, acute Unclassified (20 sources) Unspecified Diagnosis 03-29-2022 Unclassified (5 sources) Unequal blood pressure in upper extremities Results Test Name Value Interpretation Reference Range Facility Hepatitis B Core Ab Totalon 03-23-2025 HEP B CORE,TOT Negative Normal Negative [facility] Comment on above: Result Comment: Perf ormed at: - [facility] [place] [id number] Boiler Coverer Helper: Ramon Bell PhD, Phone: [phone] Performed By: #### M 100.2200, L3130.0010, L300.3900, L506.0200, L501.9985, L300.4310, L501.5101, L500.4050, L400.0001, L3100.3425, L501.6710, L100.0100, L506.0400, L501.5200, L504.2610, L101.9900, L3100.0460, L501.9520, L501.1400, L503.0106, L100.9950, L501.2300 ####[facility] [id number] [place], [place], [id number] KAVON + Protein Elect, Serumon 03-23-2025 Albumin [Mass/Vol] 3.3 g/dL Normal 2.9-4.4 [facility] Comment on above: Order Comment: N Performed By: #### M 100.2200, L3130.0010, L300.3900, L506.0200, L501.9985, L300.4310, L501.5101, L500.4050, L400.0001, L3100.3425, L501.6710, L100.0100, L506.0400, L501.5200, L504.2610, L101.9900, L3100.0460, L501.9520, L501.1400, L503.0106, L100.9950, L501.2300 ####[facility] [id number] [place], [place], [id number] Albumin/Globulin [Mass ratio] 0.9 {ratio} Normal 0.7-1.7 [facility] Comment on above: Order Comment: N Performed By: #### M 100.2200, L3130.0010, L300.3900, L506.0200, L501.9985, L300.4310, L501.5101, L500.4050, L400.0001, L3100.3425, L501.6710, L100.0100, L506.0400, L501.5200, L504.2610, L101.9900, L3100.0460, L501.9520, L501.1400, L503.0106, L100.9950, L501.2300 ####[facility] [id number] [place], [address] [id number] 0.3 g/dL Normal 0.0-0.4 [facility] Comment on above: Order Comment: N Performed By: #### M 100.2200, L3130.0010, L300.3900, L506.0200, L501.9985, L300.4310, L501.5101, L500.4050, L400.0001, L3100.3425, L501.6710, L100.0100, L506.0400, L501.5200, L504.2610, L101.9900, L3100.0460, L501.9520, L501.1400, L503.0106, L100.9950, L501.2300 ####[facility] [address] [facility]. [place], [place], [phone] FIUWO-5-GEUA 0.8 g/dL Normal 0.4-1.0 [facility] Comment on above: Order Comment: N Performed By: #### M 100.2200, L3130.0010, L300.3900, L506.0200, L501.9985, L300.4310, L501.5101, L500.4050, L400.0001, L3100.3425, L501.6710, L100.0100, L506.0400, L501.5200, L504.2610, L101.9900, L3100.0460, L501.9520, L501.1400, L503.0106, L100.9950, L501.2300 ####[facility] [address] [facility] [place], [address] BETA GLOBULIN 1.3 g/dL Normal 0.7-1.3 [facility] Comment on above: Order Comment: N Performed By: #### M 100.2200, L3130.0010, L300.3900, L506.0200, L501.9985, L300.4310, L501.5101, L500.4050, L400.0001, L3100.3425, L501.6710, L100.0100, L506.0400, L501.5200, L504.2610, L101.9900, L3100.0460, L501.9520, L501.1400, L503.0106, L100.9950, L501.2300 ####[facility] [address] [facility] [place], [phone]) GAMMA GLOBULIN 1.7 g/dL Normal 0.4-1.8 [facility] Comment on above: Order Comment: N Performed By: #### M 100.2200, L3130.0010, L300.3900, L506.0200, L501.9985, L300.4310, L501.5101, L500.4050, L400.0001, L3100.3425, L501.6710, L100.0100, L506.0400, L501.5200, L504.2610, L101.9900, L3100.0460, L501.9520, L501.1400, L503.0106, L100.9950, L501.2300 ####[facility] [address] [place], [address] Globulin (S) [Mass/Vol] 4.0 g/dL Abnormal 2.2-3.9 [facility] Comment on above: Order Comment: N Performed By: #### M 100.2200, L3130.0010, L300.3900, L506.0200, L501.9985, L300.4310, L501.5101, L500.4050, L400.0001, L3100.3425, L501.6710, L100.0100, L506.0400, L501.5200, L504.2610, L101.9900, L3100.0460, L501.9520, L501.1400, L503.0106, L100.9950, L501.2300 ####[facility] [address] [place], [place], [id number] KAVON RESULT,S Comment Normal . [facility] Comment on above: Order Comment: N Result Comment: No m onoclonality detected. Performed By: #### M 100.2200, L3130.0010, L300.3900, L506.0200, L501.9985, L300.4310, L501.5101, L500.4050, L400.0001, L3100.3425, L501.6710, L100.0100, L506.0400, L501.5200, L504.2610, L101.9900, L3100.0460, L501.9520, L501.1400, L503.0106, L100.9950, L501.2300 ####[facility] [address] [place], [address] IMMUNOGLOB A QN 380 mg/dL High 87-352 [facility] Comment on above: Order Comment: N Performed By: #### M 100.2200, L3130.0010, L300.3900, L506.0200, L501.9985, L300.4310, L501.5101, L500.4050, L400.0001, L3100.3425, L501.6710, L100.0100, L506.0400, L501.5200, L504.2610, L101.9900, L3100.0460, L501.9520, L501.1400, L503.0106, L100.9950, L501.2300 ####[facility] [address] [place], [address] IMMUNOGLOB G QN 1875 mg/dL High 586-1602 [facility] Comment on above: Order Comment: N Performed By: #### M 100.2200, L3130.0010, L300.3900, L506.0200, L501.9985, L300.4310, L501.5101, L500.4050, L400.0001, L3100.3425, L501.6710, L100.0100, L506.0400, L501.5200, L504.2610, L101.9900, L3100.0460, L501.9520, L501.1400, L503.0106, L100.9950, L501.2300 ####[facility] [address] [place], [place], [phone](213) IMMUNOGLOB M QN 109 mg/dL Normal 26-217 [facility] Comment on above: Order Comment: N Performed By: #### M 100.2200, L3130.0010, L300.3900, L506.0200, L501.9985, L300.4310, L501.5101, L500.4050, L400.0001, L3100.3425, L501.6710, L100.0100, L506.0400, L501.5200, L504.2610, L101.9900, L3100.0460, L501.9520, L501.1400, L503.0106, L100.9950, L501.2300 ####[facility] [address] [place], [address] M-Terrance Not Observed Normal Not Observed [facility] Comment on above: Order Comment: N Performed By: #### M 100.2200, L3130.0010, L300.3900, L506.0200, L501.9985, L300.4310, L501.5101, L500.4050, L400.0001, L3100.3425, L501.6710, L100.0100, L506.0400, L501.5200, L504.2610, L101.9900, L3100.0460, L501.9520, L501.1400, L503.0106, L100.9950, L501.2300 ####[facility] [address] [place], [place], [id number] NOTE: Comment Normal . [facility] Comment on above: Order Comment: N Result Comment: Prot ein electrophoresis scan will follow via computer, mail, or bobbin doffer delivery. Performed By: #### M 100.2200, L3130.0010, L300.3900, L506.0200, L501.9985, L300.4310, L501.5101, L500.4050, L400.0001, L3100.3425, L501.6710, L100.0100, L506.0400, L501.5200, L504.2610, L101.9900, L3100.0460, L501.9520, L501.1400, L503.0106, L100.9950, L501.2300 ####[facility] [address] [place], [place], [phone](439) Protein [Mass/Vol] 7.3 g/dL Normal 6.0-8.5 [facility] Comment on above: Order Comment: N Performed By: #### M 100.2200, L3130.0010, L300.3900, L506.0200, L501.9985, L300.4310, L501.5101, L500.4050, L400.0001, L3100.3425, L501.6710, L100.0100, L506.0400, L501.5200, L504.2610, L101.9900, L3100.0460, L501.9520, L501.1400, L503.0106, L100.9950, L501.2300 ####[facility] [address] [facility] [address] [place], [place], [phone] [place] Lambda Light Chainson 03-23-2025 FR KAPPA LT CHN 30.8 mg/L Abnormal 3.3-19.4 [facility] Comment on above: Performed By: #### M 100.2200, L3130.0010, L300.3900, L506.0200, L501.9985, L300.4310, L501.5101, L500.4050, L400.0001, L3100.3425, L501.6710, L100.0100, L506.0400, L501.5200, L504.2610, L101.9900, L3100.0460, L501.9520, L501.1400, L503.0106, L100.9950, L501.2300 ####[facility] [address] [place], [place], [phone](830) FR LAMBDA LT CH 20.6 mg/L Normal 5.7-26.3 [facility] Comment on above: Performed By: #### M 100.2200, L3130.0010, L300.3900, L506.0200, L501.9985, L300.4310, L501.5101, L500.4050, L400.0001, L3100.3425, L501.6710, L100.0100, L506.0400, L501.5200, L504.2610, L101.9900, L3100.0460, L501.9520, L501.1400, L503.0106, L100.9950, L501.2300 ####[facility] [address] [place], [place], [id number] KAPPA/LAMBDA % 1.50 Normal 0.26-1.65 [facility] Comment on above: Performed By: #### M 100.2200, L3130.0010, L300.3900, L506.0200, L501.9985, L300.4310, L501.5101, L500.4050, L400.0001, L3100.3425, L501.6710, L100.0100, L506.0400, L501.5200, L504.2610, L101.9900, L3100.0460, L501.9520, L501.1400, L503.0106, L100.9950, L501.2300 ####[facility] [address] [place], [place], [phone] L501.5101on 03-23-2025 GGTP 27 IU/L Normal 0-60 [facility] Comment on above: Performed By: #### M 100.2200, L3130.0010, L300.3900, L506.0200, L501.9985, L300.4310, L501.5101, L500.4050, L400.0001, L3100.3425, L501.6710, L100.0100, L506.0400, L501.5200, L504.2610, L101.9900, L3100.0460, L501.9520, L501.1400, L503.0106, L100.9950, L501.2300 ####[facility] [address] [place], [place], [phone] Urine Cultureon 03-21-2025 URC Mixed Gram Positive Organisms [place] Count 50,000-80,000 MIXC Mixed contaminants. Submit a new specimen if indicated. Normal [facility] Comment on above: Performed By: #### M 100.2200, L3130.0010, L300.3900, L506.0200, L501.9985, L300.4310, L501.5101, L500.4050, L400.0001, L3100.3425, L501.6710, L100.0100, L506.0400, L501.5200, L504.2610, L101.9900, L3100.0460, L501.9520, L501.1400, L503.0106, L100.9950, L501.2300 ####[facility] [address] [place], [place], [id number] Absolute lymphocyte countOrd ered By: Lesli Márquez on 03-19-2025 Lymphocytes Auto (Unsp spec) [#/Vol] 2.02 10*3/uL 0.83-4.51 [facility] Absolute neutrophil countOrd ered By: Lesli Márquez on 03-19-2025 Neutrophils (Bld) [#/Vol] 3.9 10*3/uL 2.0-7.7 [facility] Activated partial thrombopla stin time (aPTT) in platelet poor plasma by coagulation aOrdered By: Lesli Márquez on 03-19-2025 aPTT Coag (PPP) [Time] 23.8 s Low 24.1-36.2 [facility] Albumin Elph [Mass/Vol]Order ed By: Lesli Márquez on 03-19-2025 Albumin [Mass/Vol] 3.3 g/dL 2.9-4.4 [facility] Anion gap in Serum or Plasma Ordered By: Lesli Márquez on 03-19-2025 Anion gap [Moles/Vol] 11 mmol/L 5-15 [facility] Automated lymphocyte count a s percentage of total leukocytesOrdered By: Lesli Márquez on 03-19-2025 Lymphocytes/100 WBC Auto (Unsp spec) 29.0 % 19-41 [facility] BUN/creatinine ratioOrdered By: Lesli Márquez on 03-19-2025 Urea nitrogen/Creatinine [Mass ratio] 16.4 mg/mg 10-20 [facility] Basophil percentageOrdered B y: Lesli Márquez on 03-19-2025 Basophils/100 WBC (Bld) 0.9 % 0-1 [facility] Bilirubin Test strip Ql (U)O rdered By: Lesli Márquez on 03-19-2025 Bilirubin Ql (U) Negative Negative [facility] Bilirubin, totalOrdered By: Lesli Márquez on 03-19-2025 Bilirubin [Mass/Vol] 0.44 mg/dL 0.00-1.30 [facility] CBC W/Diff, Automatedon 02-19 Absolute Lymph 2.02 X10 3/uL Normal 0.83-4.51 [facility] Comment on above: Performed By: #### M 100.2200, L3130.0010, L300.3900, L506.0200, L501.9985, L300.4310, L501.5101, L500.4050, L400.0001, L3100.3425, L501.6710, L100.0100, L506.0400, L501.5200, L504.2610, L101.9900, L3100.0460, L501.9520, L501.1400, L503.0106, L100.9950, L501.2300 #### [facility] [address] [place] [address]. [place], [place], [phone] Absolute Neut 3.9 X10 3/uL Normal 2.0-7.7 [facility] Comment on above: Performed By: #### M 100.2200, L3130.0010, L300.3900, L506.0200, L501.9985, L300.4310, L501.5101, L500.4050, L400.0001, L3100.3425, L501.6710, L100.0100, L506.0400, L501.5200, L504.2610, L101.9900, L3100.0460, L501.9520, L501.1400, L503.0106, L100.9950, L501.2300 #### [facility] [address] [place], [place], [phone] (775) Basophils/100 WBC (Bld) 0.9 % Normal 0-1 [facility] Comment on above: Performed By: #### M 100.2200, L3130.0010, L300.3900, L506.0200, L501.9985, L300.4310, L501.5101, L500.4050, L400.0001, L3100.3425, L501.6710, L100.0100, L506.0400, L501.5200, L504.2610, L101.9900, L3100.0460, L501.9520, L501.1400, L503.0106, L100.9950, L501.2300 #### [facility] [address] [place], [address] (894) Eosinophils/100 WBC (Bld) 2.3 % Normal 0-5 [facility] Comment on above: Performed By: #### M 100.2200, L3130.0010, L300.3900, L506.0200, L501.9985, L300.4310, L501.5101, L500.4050, L400.0001, L3100.3425, L501.6710, L100.0100, L506.0400, L501.5200, L504.2610, L101.9900, L3100.0460, L501.9520, L501.1400, L503.0106, L100.9950, L501.2300 #### [facility] [address] [facility] [place], [place], [phone] (297) Erythrocyte distribution width (RBC) [Ratio] 14.0 % Normal 11.6-14.6 [facility] Comment on above: Performed By: #### M 100.2200, L3130.0010, L300.3900, L506.0200, L501.9985, L300.4310, L501.5101, L500.4050, L400.0001, L3100.3425, L501.6710, L100.0100, L506.0400, L501.5200, L504.2610, L101.9900, L3100.0460, L501.9520, L501.1400, L503.0106, L100.9950, L501.2300 #### [facility] [address] [facility] [place], [address] Hematocrit (Bld) [Volume fraction] 38.4 % Normal 37-47 [facility] Comment on above: Performed By: #### M 100.2200, L3130.0010, L300.3900, L506.0200, L501.9985, L300.4310, L501.5101, L500.4050, L400.0001, L3100.3425, L501.6710, L100.0100, L506.0400, L501.5200, L504.2610, L101.9900, L3100.0460, L501.9520, L501.1400, L503.0106, L100.9950, L501.2300 #### [facility] [address] [facility] [place], [address] Hemoglobin (Bld) [Mass/Vol] 12.4 g/dL Normal 12.0-15.0 [facility] Comment on above: Performed By: #### M 100.2200, L3130.0010, L300.3900, L506.0200, L501.9985, L300.4310, L501.5101, L500.4050, L400.0001, L3100.3425, L501.6710, L100.0100, L506.0400, L501.5200, L504.2610, L101.9900, L3100.0460, L501.9520, L501.1400, L503.0106, L100.9950, L501.2300 #### [facility] [address] [place], [address] IG% 0.300 Normal 0.0-0.9 [facility] Comment on above: Result Comment: IG% - Immature Granulocytes (promyelocytes, myelocytes and metamyelocytes) > 1% indicates that a LEFT SHIFT is Present. Performed By: #### M 100.2200, L3130.0010, L300.3900, L506.0200, L501.9985, L300.4310, L501.5101, L500.4050, L400.0001, L3100.3425, L501.6710, L100.0100, L506.0400, L501.5200, L504.2610, L101.9900, L3100.0460, L501.9520, L501.1400, L503.0106, L100.9950, L501.2300 #### [facility] [address] [place], [address] Lymphocytes/100 WBC (Bld) 29.0 % Normal 19-41 [facility] Comment on above: Performed By: #### M 100.2200, L3130.0010, L300.3900, L506.0200, L501.9985, L300.4310, L501.5101, L500.4050, L400.0001, L3100.3425, L501.6710, L100.0100, L506.0400, L501.5200, L504.2610, L101.9900, L3100.0460, L501.9520, L501.1400, L503.0106, L100.9950, L501.2300 #### [facility] [address] [place], [address] MCH (RBC) [Entitic mass] 28.4 pg Normal 27.0-32.0 [facility] Comment on above: Performed By: #### M 100.2200, L3130.0010, L300.3900, L506.0200, L501.9985, L300.4310, L501.5101, L500.4050, L400.0001, L3100.3425, L501.6710, L100.0100, L506.0400, L501.5200, L504.2610, L101.9900, L3100.0460, L501.9520, L501.1400, L503.0106, L100.9950, L501.2300 #### [facility] [address] [facility] [place], [place], [id number] MCHC (RBC) [Mass/Vol] 32.3 g/dL Normal 32-36 [facility] Comment on above: Performed By: #### M 100.2200, L3130.0010, L300.3900, L506.0200, L501.9985, L300.4310, L501.5101, L500.4050, L400.0001, L3100.3425, L501.6710, L100.0100, L506.0400, L501.5200, L504.2610, L101.9900, L3100.0460, L501.9520, L501.1400, L503.0106, L100.9950, L501.2300 #### [facility] [address] [facility] [place], [address] MCV (RBC) [Entitic vol] 88.1 fL Normal 81-99 [facility] Comment on above: Performed By: #### M 100.2200, L3130.0010, L300.3900, L506.0200, L501.9985, L300.4310, L501.5101, L500.4050, L400.0001, L3100.3425, L501.6710, L100.0100, L506.0400, L501.5200, L504.2610, L101.9900, L3100.0460, L501.9520, L501.1400, L503.0106, L100.9950, L501.2300 #### [facility] [address] [place], [address] Monocytes/100 WBC (Bld) 11.8 % High 0-10 [facility] Comment on above: Performed By: #### M 100.2200, L3130.0010, L300.3900, L506.0200, L501.9985, L300.4310, L501.5101, L500.4050, L400.0001, L3100.3425, L501.6710, L100.0100, L506.0400, L501.5200, L504.2610, L101.9900, L3100.0460, L501.9520, L501.1400, L503.0106, L100.9950, L501.2300 #### [facility] [address] [place], [address] Neutrophils/100 WBC (Bld) 55.7 % Normal 47-70 [facility] Comment on above: Performed By: #### M 100.2200, L3130.0010, L300.3900, L506.0200, L501.9985, L300.4310, L501.5101, L500.4050, L400.0001, L3100.3425, L501.6710, L100.0100, L506.0400, L501.5200, L504.2610, L101.9900, L3100.0460, L501.9520, L501.1400, L503.0106, L100.9950, L501.2300 #### [facility] [address] [place], [address] Nucleated RBC (Bld) [#/Vol] 0 10*3/uL Normal 0-5 [facility] Comment on above: Performed By: #### M 100.2200, L3130.0010, L300.3900, L506.0200, L501.9985, L300.4310, L501.5101, L500.4050, L400.0001, L3100.3425, L501.6710, L100.0100, L506.0400, L501.5200, L504.2610, L101.9900, L3100.0460, L501.9520, L501.1400, L503.0106, L100.9950, L501.2300 #### [facility] [address] [place], [address] Platelet mean volume (Bld) [Entitic vol] 10.9 fL Normal 6.2-12.0 [facility] Comment on above: Performed By: #### M 100.2200, L3130.0010, L300.3900, L506.0200, L501.9985, L300.4310, L501.5101, L500.4050, L400.0001, L3100.3425, L501.6710, L100.0100, L506.0400, L501.5200, L504.2610, L101.9900, L3100.0460, L501.9520, L501.1400, L503.0106, L100.9950, L501.2300 #### [facility] [address] [place], [address] Platelets (Bld) [#/Vol] 310 10*3/uL Normal 150-450 [facility] Comment on above: Performed By: #### M 100.2200, L3130.0010, L300.3900, L506.0200, L501.9985, L300.4310, L501.5101, L500.4050, L400.0001, L3100.3425, L501.6710, L100.0100, L506.0400, L501.5200, L504.2610, L101.9900, L3100.0460, L501.9520, L501.1400, L503.0106, L100.9950, L501.2300 #### [facility] [address] [place], [address] RBC (Bld) [#/Vol] 4.36 10*6/uL Normal 4.2-5.4 [facility] Comment on above: Performed By: #### M 100.2200, L3130.0010, L300.3900, L506.0200, L501.9985, L300.4310, L501.5101, L500.4050, L400.0001, L3100.3425, L501.6710, L100.0100, L506.0400, L501.5200, L504.2610, L101.9900, L3100.0460, L501.9520, L501.1400, L503.0106, L100.9950, L501.2300 #### [facility] [address] [place], [address] RDW SD 45.1 fl High 35.1-43.9 [facility] Comment on above: Performed By: #### M 100.2200, L3130.0010, L300.3900, L506.0200, L501.9985, L300.4310, L501.5101, L500.4050, L400.0001, L3100.3425, L501.6710, L100.0100, L506.0400, L501.5200, L504.2610, L101.9900, L3100.0460, L501.9520, L501.1400, L503.0106, L100.9950, L501.2300 #### [facility] [address] [facility] [place], [address] WBC (Bld) [#/Vol] 7.0 10*3/uL Normal 4.4-11.0 [facility] Comment on above: Performed By: #### M 100.2200, L3130.0010, L300.3900, L506.0200, L501.9985, L300.4310, L501.5101, L500.4050, L400.0001, L3100.3425, L501.6710, L100.0100, L506.0400, L501.5200, L504.2610, L101.9900, L3100.0460, L501.9520, L501.1400, L503.0106, L100.9950, L501.2300 #### [facility] [address] [facility] [place], [place], [id number] CRPon 03-19-2025 C-REACTIVE PROT 25.10 mg/L High 0.0-3.0 [facility] Comment on above: Performed By: #### M 100.2200, L3130.0010, L300.3900, L506.0200, L501.9985, L300.4310, L501.5101, L500.4050, L400.0001, L3100.3425, L501.6710, L100.0100, L506.0400, L501.5200, L504.2610, L101.9900, L3100.0460, L501.9520, L501.1400, L503.0106, L100.9950, L501.2300 ####[facility] [address] [facility] [place], [address] Carbon dioxide, total [Moles /volume] in Central venous bloodOrdered By: Lesli Márquez on 03-19-2025 CO2 [Moles/Vol] 22.6 mmol/L 21.0-32.0 [facility] Chloride assayOrdered By: Liliya Márquez on 03-19-2025 Chloride [Moles/Vol] 102 mmol/L 98-108 [facility] Comprehensive Metabolic Prof ilon 03-19-2025 Albumin [Mass/Vol] 3.7 g/dL Normal 3.5-5.0 [facility] Comment on above: Performed By: #### M 100.2200, L3130.0010, L300.3900, L506.0200, L501.9985, L300.4310, L501.5101, L500.4050, L400.0001, L3100.3425, L501.6710, L100.0100, L506.0400, L501.5200, L504.2610, L101.9900, L3100.0460, L501.9520, L501.1400, L503.0106, L100.9950, L501.2300 ####[facility] [address] [place], [place], [id number] Albumin/Globulin [Mass ratio] 0.9 {ratio} Normal 0.9-2.4 [facility] Comment on above: Performed By: #### M 100.2200, L3130.0010, L300.3900, L506.0200, L501.9985, L300.4310, L501.5101, L500.4050, L400.0001, L3100.3425, L501.6710, L100.0100, L506.0400, L501.5200, L504.2610, L101.9900, L3100.0460, L501.9520, L501.1400, L503.0106, L100.9950, L501.2300 ####[facility] [address] [place], [place], [id number] ALK PHOS 118 U/L High 35-104 [facility] Comment on above: Performed By: #### M 100.2200, L3130.0010, L300.3900, L506.0200, L501.9985, L300.4310, L501.5101, L500.4050, L400.0001, L3100.3425, L501.6710, L100.0100, L506.0400, L501.5200, L504.2610, L101.9900, L3100.0460, L501.9520, L501.1400, L503.0106, L100.9950, L501.2300 ####[facility] [address] [place], [place], [id number] ALT [Catalytic activity/Vol] 20 U/L Normal <=34 [facility] Comment on above: Performed By: #### M 100.2200, L3130.0010, L300.3900, L506.0200, L501.9985, L300.4310, L501.5101, L500.4050, L400.0001, L3100.3425, L501.6710, L100.0100, L506.0400, L501.5200, L504.2610, L101.9900, L3100.0460, L501.9520, L501.1400, L503.0106, L100.9950, L501.2300 ####[facility] [address] [place], [place], [id number] AST [Catalytic activity/Vol] 27 U/L Normal <=31 [facility] Comment on above: Performed By: #### M 100.2200, L3130.0010, L300.3900, L506.0200, L501.9985, L300.4310, L501.5101, L500.4050, L400.0001, L3100.3425, L501.6710, L100.0100, L506.0400, L501.5200, L504.2610, L101.9900, L3100.0460, L501.9520, L501.1400, L503.0106, L100.9950, L501.2300 ####[facility] [address] [facility] [place], [place], [id number] Bilirubin [Mass/Vol] 0.44 mg/dL Normal 0.00-1.30 [facility] Comment on above: Performed By: #### M 100.2200, L3130.0010, L300.3900, L506.0200, L501.9985, L300.4310, L501.5101, L500.4050, L400.0001, L3100.3425, L501.6710, L100.0100, L506.0400, L501.5200, L504.2610, L101.9900, L3100.0460, L501.9520, L501.1400, L503.0106, L100.9950, L501.2300 ####[facility] [address] [place], [place], [phone](079) BUN/CRE 16.4 RATIO Normal 10-20 [facility] Comment on above: Performed By: #### M 100.2200, L3130.0010, L300.3900, L506.0200, L501.9985, L300.4310, L501.5101, L500.4050, L400.0001, L3100.3425, L501.6710, L100.0100, L506.0400, L501.5200, L504.2610, L101.9900, L3100.0460, L501.9520, L501.1400, L503.0106, L100.9950, L501.2300 ####[facility] [address] [place], [place], [id number] Calcium [Mass/Vol] 8.6 mg/dL Normal 7.6-11.0 [facility] Comment on above: Performed By: #### M 100.2200, L3130.0010, L300.3900, L506.0200, L501.9985, L300.4310, L501.5101, L500.4050, L400.0001, L3100.3425, L501.6710, L100.0100, L506.0400, L501.5200, L504.2610, L101.9900, L3100.0460, L501.9520, L501.1400, L503.0106, L100.9950, L501.2300 ####[facility] [address] [place], [place], [phone]23) Chloride [Moles/Vol] 102 mmol/L Normal 98-108 [facility] Comment on above: Performed By: #### M 100.2200, L3130.0010, L300.3900, L506.0200, L501.9985, L300.4310, L501.5101, L500.4050, L400.0001, L3100.3425, L501.6710, L100.0100, L506.0400, L501.5200, L504.2610, L101.9900, L3100.0460, L501.9520, L501.1400, L503.0106, L100.9950, L501.2300 ####[facility] [address] [place], [place], [id number] CO2 [Moles/Vol] 22.6 mmol/L Normal 21.0-32.0 [facility] Comment on above: Performed By: #### M 100.2200, L3130.0010, L300.3900, L506.0200, L501.9985, L300.4310, L501.5101, L500.4050, L400.0001, L3100.3425, L501.6710, L100.0100, L506.0400, L501.5200, L504.2610, L101.9900, L3100.0460, L501.9520, L501.1400, L503.0106, L100.9950, L501.2300 ####[facility] [address] [place], [place], [id number] Creatinine [Mass/Vol] 0.58 mg/dL Low 0.70-1.20 [facility] Comment on above: Performed By: #### M 100.2200, L3130.0010, L300.3900, L506.0200, L501.9985, L300.4310, L501.5101, L500.4050, L400.0001, L3100.3425, L501.6710, L100.0100, L506.0400, L501.5200, L504.2610, L101.9900, L3100.0460, L501.9520, L501.1400, L503.0106, L100.9950, L501.2300 ####[facility] [address] [place], [place], [id number] GAP 11 Normal 5-15 [facility] Comment on above: Performed By: #### M 100.2200, L3130.0010, L300.3900, L506.0200, L501.9985, L300.4310, L501.5101, L500.4050, L400.0001, L3100.3425, L501.6710, L100.0100, L506.0400, L501.5200, L504.2610, L101.9900, L3100.0460, L501.9520, L501.1400, L503.0106, L100.9950, L501.2300 ####[facility] [address] [place], [place], [id number] GFR/1.73 sq M.predicted among non-blacks MDRD (S/P/Bld) [Vol rate/Area] 112 mL/min/{1.73_m2} Normal >60 [facility] Comment on above: Result Comment: mL/m in/1.73m2 CKD-EPI Creatinine Equation (2020) Performed By: #### M 100.2200, L3130.0010, L300.3900, L506.0200, L501.9985, L300.4310, L501.5101, L500.4050, L400.0001, L3100.3425, L501.6710, L100.0100, L506.0400, L501.5200, L504.2610, L101.9900, L3100.0460, L501.9520, L501.1400, L503.0106, L100.9950, L501.2300 ####[facility] [address] [place], [place], [id number] Globulin (S) [Mass/Vol] 3.9 g/dL Normal 2.2-4.2 [facility] Comment on above: Performed By: #### M 100.2200, L3130.0010, L300.3900, L506.0200, L501.9985, L300.4310, L501.5101, L500.4050, L400.0001, L3100.3425, L501.6710, L100.0100, L506.0400, L501.5200, L504.2610, L101.9900, L3100.0460, L501.9520, L501.1400, L503.0106, L100.9950, L501.2300 ####[facility] [address] [facility]. [place], [place], [id number] Glucose [Mass/Vol] 100 mg/dL High 70-99 [facility] Comment on above: Performed By: #### M 100.2200, L3130.0010, L300.3900, L506.0200, L501.9985, L300.4310, L501.5101, L500.4050, L400.0001, L3100.3425, L501.6710, L100.0100, L506.0400, L501.5200, L504.2610, L101.9900, L3100.0460, L501.9520, L501.1400, L503.0106, L100.9950, L501.2300 ####[facility] [address] [facility]. [place], [place], [address] Potassium [Moles/Vol] 4.1 mmol/L Normal 3.3-5.1 [facility] Comment on above: Performed By: #### M 100.2200, L3130.0010, L300.3900, L506.0200, L501.9985, L300.4310, L501.5101, L500.4050, L400.0001, L3100.3425, L501.6710, L100.0100, L506.0400, L501.5200, L504.2610, L101.9900, L3100.0460, L501.9520, L501.1400, L503.0106, L100.9950, L501.2300 ####[facility] [address] [place], [address] Sodium [Moles/Vol] 135 mmol/L Normal 133-145 [facility] Comment on above: Performed By: #### M 100.2200, L3130.0010, L300.3900, L506.0200, L501.9985, L300.4310, L501.5101, L500.4050, L400.0001, L3100.3425, L501.6710, L100.0100, L506.0400, L501.5200, L504.2610, L101.9900, L3100.0460, L501.9520, L501.1400, L503.0106, L100.9950, L501.2300 ####[facility] [address] [place], [place], [id number](177) T PROT 7.7 g/dL Normal 5.9-8.4 [facility] Comment on above: Performed By: #### M 100.2200, L3130.0010, L300.3900, L506.0200, L501.9985, L300.4310, L501.5101, L500.4050, L400.0001, L3100.3425, L501.6710, L100.0100, L506.0400, L501.5200, L504.2610, L101.9900, L3100.0460, L501.9520, L501.1400, L503.0106, L100.9950, L501.2300 ####[facility] [address] [place], [place], [id number](328) Urea nitrogen [Mass/Vol] 10 mg/dL Normal 4-19 [facility] Comment on above: Performed By: #### M 100.2200, L3130.0010, L300.3900, L506.0200, L501.9985, L300.4310, L501.5101, L500.4050, L400.0001, L3100.3425, L501.6710, L100.0100, L506.0400, L501.5200, L504.2610, L101.9900, L3100.0460, L501.9520, L501.1400, L503.0106, L100.9950, L501.2300 ####[facility] [address] [place], [address] Eosinophil percentageOrdered By: Lesli Márquez on 03-19-2025 Eosinophils/100 WBC (Bld) 2.3 % 0-5 [facility] Erythrocyte Sed Rateon 03-19 SED RATE 31 mm/hr High 0-30 [facility] Comment on above: Performed By: #### M 100.2200, L3130.0010, L300.3900, L506.0200, L501.9985, L300.4310, L501.5101, L500.4050, L400.0001, L3100.3425, L501.6710, L100.0100, L506.0400, L501.5200, L504.2610, L101.9900, L3100.0460, L501.9520, L501.1400, L503.0106, L100.9950, L501.2300 #### [facility] [address] [place], [place], [id number] Erythrocyte distribution wid th ratioOrdered By: Lesli Márquez on 03-19-2025 Erythrocyte distribution width (RBC) [Ratio] 14.0 % 11.6-14.6 [facility] Erythrocyte distribution wid th standard deviationOrdered By: Lesli Márquez on 03-19-2025 Erythrocyte distribution width (RBC) [Ratio] 45.1 fl High 35.1-43.9 [facility] Erythrocyte sedimentation ra teOrdered By: Lesli Márquez on 03-19-2025 ESR (Bld) [Velocity] 31 mm/h High 0-30 [facility] Folate [Moles/volume] in Ser um or PlasmaOrdered By: Lesli Márquez on 03-19-2025 Folate [Moles/Vol] 16.30 ng/mL 4.60-34.80 [facility] Folates,Serum (Folic Acid)on 03-19-2025 FOLATES,SERUM 16.30 ng/mL Normal 4.60-34.80 [facility] Comment on above: Order Comment: N Performed By: #### M 100.2200, L3130.0010, L300.3900, L506.0200, L501.9985, L300.4310, L501.5101, L500.4050, L400.0001, L3100.3425, L501.6710, L100.0100, L506.0400, L501.5200, L504.2610, L101.9900, L3100.0460, L501.9520, L501.1400, L503.0106, L100.9950, L501.2300 ####[facility] [address] [place], [place], [id number] Gamma glutamyl transferase ( GGT) measurementOrdered By: Lesli Márquez on 03-19-2025 Amylase [Catalytic activity/Vol] 27 U/L 0-60 [facility] Glomerular filtration rate ( GFR) estimation/1.73 sq m using serum, plasma, or whole bOrdered By: Lesli Márquez on 03-19-2025 GFR/1.73 sq M.predicted among non-blacks MDRD (S/P/Bld) [Vol rate/Area] 112 mL/min/{1.73_m2} >60 [facility] Comment on above: mL/min/1.73m2 CKD-EP I Creatinine Equation (2020) Hematocrit Auto (Bld) [Volum e fraction]Ordered By: Lesli Márquez on 03-19-2025 Hematocrit (Bld) [Volume fraction] 38.4 % 37-47 [facility] Hemoglobin A1con 03-19-2025 HbA1c (Bld) [Mass fraction] 5.3 % Normal <=5.6 [facility] Comment on above: Result Comment: Norm al < 5.7 % Prediabetic 5.7 - 6.4 % Diabetic >or= 6.5 % Please note range changes. Performed By: #### M 100.2200, L3130.0010, L300.3900, L506.0200, L501.9985, L300.4310, L501.5101, L500.4050, L400.0001, L3100.3425, L501.6710, L100.0100, L506.0400, L501.5200, L504.2610, L101.9900, L3100.0460, L501.9520, L501.1400, L503.0106, L100.9950, L501.2300 ####[facility] [address] [place], [address] Hemoglobin A1c percentageOrd ered By: Lesli Márquez on 03-19-2025 HbA1c (Bld) [Mass fraction] 5.3 % <5.7 [facility] Comment on above: Normal < 5.7 % Predi abetic 5.7 - 6.4 % Diabetic >or= 6.5 % Please note range changes. Hemoglobin measurementOrdere d By: Lesli Márquez on 03-19-2025 Hemoglobin (Bld) [Mass/Vol] 12.4 g/dL 12.0-15.0 [facility] Immature granulocytes/100 WB C Auto (Bld)Ordered By: Lesli Márquez on 03-19-2025 Immature granulocytes/100 WBC (Bld) 0.300 % 0.0-0.9 [facility] Comment on above: IG% - Immature Granu locytes (promyelocytes, myelocytes and metamyelocytes) > 1% indicates that a LEFT SHIFT is Present. International normalized rat io (INR) calculationOrdered By: Lesli Márquez on 03-19-2025 INR Coag (Bld) [Relative time] 1.0 {INR} [facility] Interpretation of serum or p lasma protein pattern by immunofixation (narrative resultOrdered By: Lesli Márquez on 03-19-2025 Protein Fractions Immunofixation Shiva [Interp] Not Observed g/dL Not Observed [facility] Ketones Test strip Ql (U)Ord ered By: Lesli Márquez on 03-19-2025 Ketones Ql (U) Negative Negative [facility] LDHon 03-19-2025 LDH 198 U/L Normal 84-246 [facility] Comment on above: Order Comment: 1 Performed By: #### M 100.2200, L3130.0010, L300.3900, L506.0200, L501.9985, L300.4310, L501.5101, L500.4050, L400.0001, L3100.3425, L501.6710, L100.0100, L506.0400, L501.5200, L504.2610, L101.9900, L3100.0460, L501.9520, L501.1400, L503.0106, L100.9950, L501.2300 ####[facility] [address] [place], [place], [address] Laboratory - Chemistry and C hemistry - challengeOrdered By: Lesli Márquez on 03-19-2025 AST [Catalytic activity/Vol] 27 U/L <32 [facility] Lactate dehydrogenase (LDH) measurementOrdered By: Lesli Márquez on 03-19-2025 LDH [Catalytic activity/Vol] 198 U/L 84-246 [facility] MCV (mean corpuscular volume ) determinationOrdered By: Lesli Márquez on 03-19-2025 MCV (RBC) [Entitic vol] 88.1 fL 81-99 [facility] Magnesiumon 03-19-2025 Magnesium [Mass/Vol] 2.0 mg/dL Normal 1.5-2.2 [facility] Comment on above: Performed By: #### M 100.2200, L3130.0010, L300.3900, L506.0200, L501.9985, L300.4310, L501.5101, L500.4050, L400.0001, L3100.3425, L501.6710, L100.0100, L506.0400, L501.5200, L504.2610, L101.9900, L3100.0460, L501.9520, L501.1400, L503.0106, L100.9950, L501.2300 ####[facility] [address] [place], [address] Magnesium measurement (mass/ volume)Ordered By: Lesli Márquez on 03-19-2025 Magnesium (Unsp spec) [Mass/Vol] 2.0 mg/dL 1.5-2.2 [facility] Mean corpuscular hemoglobin (MCH) determinationOrdered By: Lesli Márquez on 03-19-2025 MCH (RBC) [Entitic mass] 28.4 pg 27.0-32.0 [facility] Mean corpuscular hemoglobin concentration (MCHC) determinationOrdered By: Lesli Márquez on 03-19-2025 MCHC (RBC) [Mass/Vol] 32.3 g/dL 32-36 [facility] Mean platelet volume determi nationOrdered By: Lesli Márquez on 03-19-2025 Platelet mean volume (Bld) [Entitic vol] 10.9 fL 6.2-12.0 [facility] Microscopic analysis of urin e for red blood cells (RBC)Ordered By: Lesli Márquez on 03-19-2025 Microscopic analysis of urine for red blood cells (RBC) 0-5 SEEN /hpf 0-5 [facility] Monocyte percentageOrdered B y: Lesli Márquez on 03-19-2025 Monocytes/100 WBC (Bld) 11.8 % High 0-10 [facility] Mucus LM Ql (Urine sed)Order ed By: Lesli Márquez on 03-19-2025 Mucus Ql (Urine sed) 1+ /hpf [facility] Neutrophil percentageOrdered By: Lesli Márquez on 03-19-2025 Neutrophils/100 WBC (Bld) 55.7 % 47-70 [facility] Nitrite Test strip Ql (U)Ord ered By: Lesli Márquez on 03-19-2025 Nitrite Ql (U) Negative Negative [facility] No Panel InformationOrdered By: Lesli Márquez on 03-19-2025 Addendum Document Comment . [facility] Comment on above: Protein electrophore sis scan will follow via computer,mail, or [employer] delivery. Nucleated red blood cell per centageOrdered By: Lesli Márquez on 03-19-2025 Nucleated RBC/100 WBC (Bld) [Ratio] 0 % 0-5 [facility] Partial Thromboplast Timeon 03-19-2025 aPTT Coag (Bld) [Time] 23.8 s Low 24.1-36.2 [facility] Comment on above: Performed By: #### M 100.2200, L3130.0010, L300.3900, L506.0200, L501.9985, L300.4310, L501.5101, L500.4050, L400.0001, L3100.3425, L501.6710, L100.0100, L506.0400, L501.5200, L504.2610, L101.9900, L3100.0460, L501.9520, L501.1400, L503.0106, L100.9950, L501.2300 #### [facility] [address] [place], [address] Phosphoruson 03-19-2025 Phosphate [Mass/Vol] 2.9 mg/dL Normal 2.7-4.5 [facility] Comment on above: Performed By: #### M 100.2200, L3130.0010, L300.3900, L506.0200, L501.9985, L300.4310, L501.5101, L500.4050, L400.0001, L3100.3425, L501.6710, L100.0100, L506.0400, L501.5200, L504.2610, L101.9900, L3100.0460, L501.9520, L501.1400, L503.0106, L100.9950, L501.2300 ####[facility] [address] [place], [address] Platelet countOrdered By: Liliya Márquez on 03-19-2025 Platelets (Bld) [#/Vol] 310 10*3/uL 150-450 [facility] Potassium measurement (mass/ volume)Ordered By: Lesli Suon on 03-19-2025 Potassium (Unsp spec) [Mass/Vol] 4.1 mmol/L 3.3-5.1 [facility] Protein Test strip Ql (U)Ord ered By: Leslieze Márquez on 03-19-2025 Protein Ql (U) 30 mg/dl High Negative [facility] Prothrombin Time w/INRon INR Coag (PPP) [Relative time] 1.0 {INR} Normal [facility] Comment on above: Performed By: #### M 100.2200, L3130.0010, L300.3900, L506.0200, L501.9985, L300.4310, L501.5101, L500.4050, L400.0001, L3100.3425, L501.6710, L100.0100, L506.0400, L501.5200, L504.2610, L101.9900, L3100.0460, L501.9520, L501.1400, L503.0106, L100.9950, L501.2300 #### [facility] [address] [place], [place], [id number] PT Coag (PPP) [Time] 13.1 s Normal 11.7-14.9 [facility] Comment on above: Performed By: #### M 100.2200, L3130.0010, L300.3900, L506.0200, L501.9985, L300.4310, L501.5101, L500.4050, L400.0001, L3100.3425, L501.6710, L100.0100, L506.0400, L501.5200, L504.2610, L101.9900, L3100.0460, L501.9520, L501.1400, L503.0106, L100.9950, L501.2300 #### [facility] [address] [place], [place], [id number] Prothrombin timeOrdered By: Lesli Darinel on 03-19-2025 PT Coag (PPP) [Time] 13.1 s 11.7-14.9 [facility] RBC Auto (Bld) [#/Vol]Ordere d By: Lesli Márquez on 03-19-2025 RBC (Bld) [#/Vol] 4.36 10*6/uL 4.2-5.4 [facility] Retic Panelon 03-19-2025 IM RET FRACTION 20.90 High 3.00-15.90 [facility] Comment on above: Performed By: #### M 100.2200, L3130.0010, L300.3900, L506.0200, L501.9985, L300.4310, L501.5101, L500.4050, L400.0001, L3100.3425, L501.6710, L100.0100, L506.0400, L501.5200, L504.2610, L101.9900, L3100.0460, L501.9520, L501.1400, L503.0106, L100.9950, L501.2300 #### [facility] [address] [place], [place], [id number] RET-HE 31.7 pg Normal 30-35 [facility] Comment on above: Performed By: #### M 100.2200, L3130.0010, L300.3900, L506.0200, L501.9985, L300.4310, L501.5101, L500.4050, L400.0001, L3100.3425, L501.6710, L100.0100, L506.0400, L501.5200, L504.2610, L101.9900, L3100.0460, L501.9520, L501.1400, L503.0106, L100.9950, L501.2300 #### [facility] [address] [place], [place], [id number] Retic Count 1.72 High 0.5-1.5 [facility] Comment on above: Performed By: #### M 100.2200, L3130.0010, L300.3900, L506.0200, L501.9985, L300.4310, L501.5101, L500.4050, L400.0001, L3100.3425, L501.6710, L100.0100, L506.0400, L501.5200, L504.2610, L101.9900, L3100.0460, L501.9520, L501.1400, L503.0106, L100.9950, L501.2300 #### [facility] [address] [place], [place], [id number] Reticulocyte hemoglobin equi valent (RET-He) measurementOrdered By: Lesli Márquez on 03-19-2025 Hemoglobin (Reticulocytes) [Entitic mass] 31.7 pg 30-35 [facility] Reticulocytes Auto (Bld) [#/ Vol]Ordered By: Lesli Márquez on 03-19-2025 Reticulocytes/100 RBC (Bld) 1.72 % High 0.5-1.5 [facility] Serum creatinine measurement (mass/volume)Ordered By: Lesli Márquez on 03-19-2025 Creatinine [Mass/Vol] 0.58 mg/dL Low 0.70-1.20 [facility] Serum globulin measurement ( mass/volume)Ordered By: Lesli Márquez on 03-19-2025 Globulin (S) [Mass/Vol] 4.0 g/dL High 2.2-3.9 [facility] Serum glucose measurement (m ass/volume)Ordered By: Lesli Márquez on 03-19-2025 Glucose [Mass/Vol] 100 mg/dL High 70-99 [facility] Serum hepatitis B virus core antibody detectionOrdered By: Lesli Márquez on 03-19-2025 HBV core Ab Ql (S) Negative Negative [facility] Comment on above: Performed at: [address] [id number] Director: Ramon Bell PhD, Phone: [phone] Serum immunoglobulin kappa l ight chains/immunoglobulin lambda light chains mass ratioOrdered By: Lesli Márquez on 03-19-2025 Immunoglobulin light chains.kappa/Immunoglob ulin light chains.lambda (S) [Mass ratio] 1.50 0.26-1.65 [facility] Serum or plasma C reactive p rotein measurement (mass/volume)Ordered By: Lesli Márquez on 03-19-2025 CRP [Mass/Vol] 25.10 mg/L High 0.0-3.0 [facility] Serum or plasma IgA measurem ent (mass/volume)Ordered By: Lesli Márquez on 03-19-2025 IgA [Mass/Vol] 380 mg/dL High 87-352 [facility] Serum or plasma IgG measurem ent (mass/volume)Ordered By: Lesli Márquez on 03-19-2025 IgG [Mass/Vol] 1875 mg/dL High 586-1602 [facility] Serum or plasma alanine stein otransferase (ALT) measurementOrdered By: Lesli Márquez on 03-19-2025 ALT [Catalytic activity/Vol] 20 U/L <35 [facility] Serum or plasma albumin abbey urement (mass/volume)Ordered By: Lesli Márquez on 03-19-2025 Albumin [Mass/Vol] 3.7 g/dL 3.5-5.0 [facility] Serum or plasma albumin/glob ulin mass ratioOrdered By: Lesli Márquez on 03-19-2025 Albumin/Globulin [Mass ratio] 0.9 {ratio} 0.9-2.4 [facility] Serum or plasma alkaline álvaro sphatase measurementOrdered By: Lesli Márquez on 03-19-2025 ALP [Catalytic activity/Vol] 118 U/L High 35-104 [facility] Serum or plasma alpha 1 glob ulin measurement by electrophoresis (mass/volume)Ordered By: Lesli Márquez on 03-19-2025 Alpha 1 globulin Elph [Mass/Vol] 0.3 g/dL 0.0-0.4 [facility] Alpha 1 globulin Elph [Mass/Vol] 0.8 g/dL 0.4-1.0 [facility] Serum or plasma beta globuli n measurement by electrophoresis (mass/volume)Ordered By: Lesli Márquez on 03-19-2025 Beta globulin Elph [Mass/Vol] 1.3 g/dL 0.7-1.3 [facility] Serum or plasma calcium abbey urement (mass/volume)Ordered By: Lesli Márquez on 03-19-2025 Calcium [Mass/Vol] 8.6 mg/dL 7.6-11.0 [facility] Serum or plasma gamma globul in measurement by electrophoresis (mass/volume)Ordered By: Lesli Márquez on 03-19-2025 Gamma globulin Elph [Mass/Vol] 1.7 g/dL 0.4-1.8 [facility] Serum or plasma immunoelectr ophoresis interpretation (nominal result)Ordered By: Lesli Márquez on 03-19-2025 Interpretation IEP [Interp] Comment . [facility] Comment on above: No monoclonality det ected. Serum or plasma immunoglobul in kappa light chains measurement (mass/volume)Ordered By: Lesli Márquez on 03-19-2025 Immunoglobulin light chains.kappa [Mass/Vol] 30.8 mg/L High 3.3-19.4 [facility] Serum or plasma protein abbey urement (mass/volume)Ordered By: Lesli Márquez on 03-19-2025 Protein [Mass/Vol] 7.3 g/dL 6.0-8.5 [facility] Serum or plasma urea nitroge n measurement (mass/volume)Ordered By: Lesli Márquez on 03-19-2025 Urea nitrogen [Mass/Vol] 10 mg/dL 4-19 [facility] Serum or plasma uric acid me asurement (mass/volume)Ordered By: Lesli Márquez on 03-19-2025 Urate [Mass/Vol] 4.3 mg/dL 2.6-6.0 [facility] Comment on above: The drugs N-Acetylcy steine and Metamizole may falsely depress this assay. Sodium levelOrdered By: Genesis Márquez on 03-19-2025 Sodium [Moles/Vol] 135 mmol/L 133-145 [facility] Squamous epithelial cells de tection in urine sediment by light microscopyOrdered By: Lesli Márquez on 03-19-2025 Epithelial cells.squamous LM Ql (Urine sed) 0-5 SEEN /hpf 5-10 [facility] T4 Free Directon 03-19-2025 T4 FREE DIRECT 1.00 ng/dL Normal 0.76-1.46 [facility] Comment on above: Order Comment: N Performed By: #### M 100.2200, L3130.0010, L300.3900, L506.0200, L501.9985, L300.4310, L501.5101, L500.4050, L400.0001, L3100.3425, L501.6710, L100.0100, L506.0400, L501.5200, L504.2610, L101.9900, L3100.0460, L501.9520, L501.1400, L503.0106, L100.9950, L501.2300 ####[facility] [address] [place], [place], [address] T4 freeOrdered By: Lesli Márquez on 03-19-2025 Free T4 [Mass/Vol] 1.00 ng/dL 0.76-1.46 [facility] TSH DL <= 0.005 mIU/L QnOrde red By: Lesli Márquez on 03-19-2025 TSH Qn 2.320 uIU/mL 0.300-4.20 0 [facility] Thyroid Stim Hormone (TSH)on 03-19-2025 TSH 2.320 uIU/mL Normal 0.300-4.20 0 [facility] Comment on above: Performed By: #### M 100.2200, L3130.0010, L300.3900, L506.0200, L501.9985, L300.4310, L501.5101, L500.4050, L400.0001, L3100.3425, L501.6710, L100.0100, L506.0400, L501.5200, L504.2610, L101.9900, L3100.0460, L501.9520, L501.1400, L503.0106, L100.9950, L501.2300 ####[facility] [address] [place], [address] Total proteinOrdered By: Genesis carmeloness Darinel on 03-19-2025 Protein [Mass/Vol] 7.7 g/dL 5.9-8.4 [facility] Uric Acidon 03-19-2025 URIC 4.3 mg/dL Normal 2.6-6.0 [facility] Comment on above: Result Comment: The drugs N-Acetylcysteine and Metamizole may falsely depress this assay. Performed By: #### M 100.2200, L3130.0010, L300.3900, L506.0200, L501.9985, L300.4310, L501.5101, L500.4050, L400.0001, L3100.3425, L501.6710, L100.0100, L506.0400, L501.5200, L504.2610, L101.9900, L3100.0460, L501.9520, L501.1400, L503.0106, L100.9950, L501.2300 ####[facility] [address] [place], [address] Urinalysis, Completeon 03-19 BACTERIA 2+ /hpf Normal None Seen [facility] Comment on above: Order Comment: CLEAN CATCH Performed By: #### M 100.2200, L3130.0010, L300.3900, L506.0200, L501.9985, L300.4310, L501.5101, L500.4050, L400.0001, L3100.3425, L501.6710, L100.0100, L506.0400, L501.5200, L504.2610, L101.9900, L3100.0460, L501.9520, L501.1400, L503.0106, L100.9950, L501.2300 #### [facility] [address] [place], [place], [id number] EPI,SQUAMOUS 0-5 SEEN Normal 5-10 [facility] Comment on above: Order Comment: CLEAN CATCH Performed By: #### M 100.2200, L3130.0010, L300.3900, L506.0200, L501.9985, L300.4310, L501.5101, L500.4050, L400.0001, L3100.3425, L501.6710, L100.0100, L506.0400, L501.5200, L504.2610, L101.9900, L3100.0460, L501.9520, L501.1400, L503.0106, L100.9950, L501.2300 #### [facility] [address] [place], [place], [id number] Mucus Ql (Urine sed) 1+ /hpf Normal [facility] Comment on above: Order Comment: CLEAN CATCH Performed By: #### M 100.2200, L3130.0010, L300.3900, L506.0200, L501.9985, L300.4310, L501.5101, L500.4050, L400.0001, L3100.3425, L501.6710, L100.0100, L506.0400, L501.5200, L504.2610, L101.9900, L3100.0460, L501.9520, L501.1400, L503.0106, L100.9950, L501.2300 #### [facility] [address] [place], [place], [id number] RBC 0-5 SEEN Normal 0-5 [facility] Comment on above: Order Comment: CLEAN CATCH Performed By: #### M 100.2200, L3130.0010, L300.3900, L506.0200, L501.9985, L300.4310, L501.5101, L500.4050, L400.0001, L3100.3425, L501.6710, L100.0100, L506.0400, L501.5200, L504.2610, L101.9900, L3100.0460, L501.9520, L501.1400, L503.0106, L100.9950, L501.2300 #### [facility] [address] [place], [place], [id number] WBC 0-5 SEEN Normal 0-5 [facility] Comment on above: Order Comment: CLEAN CATCH Performed By: #### M 100.2200, L3130.0010, L300.3900, L506.0200, L501.9985, L300.4310, L501.5101, L500.4050, L400.0001, L3100.3425, L501.6710, L100.0100, L506.0400, L501.5200, L504.2610, L101.9900, L3100.0460, L501.9520, L501.1400, L503.0106, L100.9950, L501.2300 #### [facility] [address] [place], [place], [id number] Urine clarityOrdered By: Genesis Márquez on 03-19-2025 Clarity (U) Sl. Cloudy Clear [facility] Urine color determinationOrd ered By: Lesli Márquez on 03-19-2025 Color (U) Yellow Yellow [facility] Urine cultureOrdered By: Genesis Márquez on 03-19-2025 Bacteria identified Cx Nom (U) Positive Abnormal [facility] Urine glucose detectionOrder ed By: Lesli Márquez on 03-19-2025 Glucose Ql (U) Normal mg/dl Normal [facility] Urine leukocyte esterase det ection by dipstickOrdered By: Lesli Márquez on 03-19-2025 Leukocyte esterase Test strip Ql (U) Negative Negative [facility] Urine pHOrdered By: Lesli Márquez on 03-19-2025 pH (U) 6.5 [pH] 5.0 - 8.0 [facility] Urine sediment bacteria coun t by microscopy (number/high power field)Ordered By: Lesli Márquez on 03-19-2025 Bacteria LM.HPF (Urine sed) [#/Area] 2 /[HPF] None Seen [facility] Urine specific gravity measu rementOrdered By: Lesli Márquez on 03-19-2025 Specific gravity (U) [Rel density] 1.010 1.002-1.03 0 [facility] Urine urobilinogen measureme ntOrdered By: Lesli Márquez on 03-19-2025 Urobilinogen Ql (U) Normal mg/dl Normal [facility] Vitamin B12on 03-19-2025 Cobalamin (Vitamin B12) [Mass/Vol] 609 pg/mL Normal 180-914 [facility] Comment on above: Performed By: #### M 100.2200, L3130.0010, L300.3900, L506.0200, L501.9985, L300.4310, L501.5101, L500.4050, L400.0001, L3100.3425, L501.6710, L100.0100, L506.0400, L501.5200, L504.2610, L101.9900, L3100.0460, L501.9520, L501.1400, L503.0106, L100.9950, L501.2300 ####[facility] [address] [place], [place], [id number] Vitamin B12 ser/plasOrdered By: Lesli Márquez on 03-19-2025 Cobalamin (Vitamin B12) [Mass/Vol] 609 pg/mL 180-4 [facility] White blood cell (WBC) count Ordered By: Lesli Márquez on 03-19-2025 WBC (Bld) [#/Vol] 7.0 10*3/uL 4.4-11.0 [facility] White blood cell countOrdere d By: Lesli Márquez on 03-19-2025 White blood cell count 0-5 SEEN /hpf 0-5 [facility] MR/BMS.BVLui 02-11-2025 MR/BMS.BVS [facility] [address] [place] [address] OFFICE VISIT Date of Service: 02/11/25 MR#: [id number] Acct: [id number] Name: ALIX PALMER Rep #: [id number] : 1975 Provider: BYRON Tovar Age/Sex: 49/F [place] [facility] Status: Signed Intake Vital Signs 04/15/24 11:08 02/11/25 09:19 Height 5 ft 6.75 in Weight: 280 lb 2 oz BP 148/88 H Blood Pressure Location Rt brachial Position Sitting Respiration 17 Pulse 88 Pulse Source Monitor Temp 98.2 F Temp Source Temporal Pulse Oximetry (%) 98 Oxygen Delivery Method room air Intake Visit Reasons: Dilation of Thoracic Aorta Chief Complaint: Cardiac Score Research Support Specialist Required: No Is patient in pain?: No Allergies Beef Containing Products Allergy (Severe, Verified 04/09/24 14:36) Hives latex Allergy (Intermediate, Verified 02/11/25 08:59) Rash ketorolac (From Toradol) Allergy (Verified 04/09/24 14:36) Other Medications ???Medication ???Instructions ???Recorded ???Confirmed ???Type escitalopram oxalate 10 mg tablet 10 mg PO DAILY 03/25/24 02/11/25 History pantoprazole 40 mg tablet,delayed 40 mg PO QHS 03/25/24 02/11/25 Hi story release MITOCORE 4 tab DAILY 04/09/24 02/11/25 Hist ory amlodipine 10 mg tablet 10 mg PO QDAY 02/11/25 02/11/25 Hi story fluticasone furoate 50 inhalation 02/11/25 02/11/25 Histo ry mcg-vilanterol 25 mcg/dose inhalation powder (Breo Ellipta) melatonin 3 mg tablet 3 mg PO HS PRN 02/11/25 02/11/25 H istory trazodone 50 mg tablet 50 mg PO QDAY 02/11/25 02/11/25 Hi story Is last menstrual period known: Yes Post menopausal: No Patient : No Have you fallen in the past year?: No PFSH Medical History (Updated 02/11/25 @ 10:35 by BYRON Tovar) Asthma Difficult intravenous access Wears glasses Anxiety High cholesterol Migraine headache Restless legs Dietary restriction PONV (postoperative nausea and vomiting) Gastric reflux Non-smoker Chronic cough Hemangioma of liver Liver lesion High blood pressure Nasal bleeding COVID Surgical History History of back surgery Hx of tonsillectomy Hx of adenoidectomy Family History Mother Hypertension Colon polyps CVA (cerebral vascular accident) Father Hypertension Heart disease HLD (hyperlipidemia) Myocardial infarction Sister Hypertension Grandfather Hypertension Heart disease HLD (hyperlipidemia) Social History household members: significant other current occupational status: employed 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 Márquez. She reports no prior known personal or family history of aneurysmal disease. She does not smoke. She does have hypertension, generally with fair control. She denies history of heart disease, peripheral artery disease, VTE, valvular heart disease. No claudication, persistent chest/abdominal/back/fl ank pain. Also on her coronary calcium score had abnormal lesion noted on her liver and she just had abdomen CT with contrast for this last night; reviewed report showing hemangioma. ROS General General: Yes fatigue; No weight change, appetite, colon cancer, breast cancer or weakness HEENT HEENT: No difficulty swallowing, eye injury, eye surgery, swollen glands or hoarseness Endo Endocrine: No thyroid disease, diabetes mellitus, thyroid cancer, Hair loss, heat intolerance or cold intolerance Skin Skin: No rash or changing moles Musc Musculoskeletal: No back problems, arthritis, rheumatoid arthritis, gout or joint pain Cardio Cardiovascular: Yes high blood pressure; No murmur, pacemaker, heart disease, atrial fibrillation, heart attack, heart stent, palpitations, shortness of breath with exertion or chest pain Psych Psychiatric: Yes anxiety; No depression or hearing voices Resp Respiratory: No shortness of breath, No sleep apnea, No cough, No COPD, Yes asthma, No emphysema and No wheezing Gastro Gastrointestinal: Yes abdominal pain, Yes nausea or vomiting, No diarrhea, No constipation, No blood in stool, Yes acid reflux, Yes hemorrhoids, No ulcers, No gallbladder problem and No black,tarry stools Aleksandar Hematologic: No blood thinners, No blood disorders, No bleeding, No anemia and No blood clots Neur (more content not included)... Normal [facility] Abdomen W/WO IV Contraston 0 02-10-2025 Abdomen W/WO IV Contrast [facility] Services [address] [place] [address] Abdomen W/WO IV Contrast MR#: [id number] Acct: [id number] Name: ALIX PALMER Rep #: [id number] : 1975 F 49 From: Melchor Chairez PCP: Dr. Lesli Márquez, Status: REG CLI Study: Abdomen W/WO IV Contrast Date of Exam: 5 Exam# [id number] Ordering Dr: Lesli Márquez DO PROCEDURE: ABDOMEN W/WO IV CONTRAST 02/10/2025 REASON FOR EXAM: HEPATIC LESION TECHNIQUE: Abdomen CT with intravenous contrast. Coronal and Sagittal reconstruction series were provided. One or more dose reduction techniques were used (e.g., Automated exposure control, adjustment of the mA and/or kV according to patient size, use of iterative reconstruction technique. COMPARISON: None FINDINGS: Subtle hypodense lesion along the right hepatic dome measuring up to 2.4 cm width peripheral nodular contrast enhancement which becomes isointense on delayed imaging favoring a hemangioma. No other hepatic lesions identified. Spleen, pancreas and adrenal glands are intact. Gallbladder is contracted. No significant biliary ductal dilation. Kidneys enhance symmetrically. No suspicious renal mass, calculi or hydronephrosis. Partially duplicated right renal collecting system. No bowel obstruction, focal bowel wall thickening or significant perienteric inflammation. No free air or free fluid. Mildly calcified nonaneurysmal abdominal aorta. No bulky adenopathy. Superficial soft tissues are within normal limits. No acute osseous abnormality. Mild degenerative changes of the spine. CT/Abdomen W/WO IV Contrast IMPRESSION: Enhancing lesion along the right hepatic dome with imaging characteristics consistent with a hemangioma. Reading Location: [facility] CC: Dr. Lesli Márquez, DO Parquet [employer] Layer'S Helper: Signed Normal [facility] CT CARDIAC SCORING WO IV CON TRASTon 12-25-2024 CT CARDIAC SCORING WO IV CONTRAST Interpreted By: Slade Galvez, STUDY: CT CARDIAC SCORING WO IV CONTRAST; 12/25/2024 8:13 am INDICATION: Signs/Symptoms:CARDIAC SCREENING INTERMEDIATE CAD RISK ABNORMAL GLUCOSE TOLERANCE TEST. COMPARISON: None. ACCESSION NUMBER(S): [id number] ORDERING CLINICIAN: LESLI MÁRQUEZ TECHNIQUE: Using prospective ECG gating, limited CT scan of the chest for evaluation of coronary arteries was performed without intravenous contrast. Coronary calcium scoring was performed according to the method of Agatston. FINDINGS: The score and distribution of calcium in the coronary arteries is as follows: LM: 0. LAD: 0. LCx: 5.7. RCA: 0. Total: 5.7. The visualized segments of the lungs are normally expanded. Mild patchy bibasilar infiltrates and/or atelectasis. The visualized mid/lower ascending thoracic aorta measures 4.2 cm in diameter. The heart is mildly enlarged. Trace pericardial effusion is present. No gross evidence of mediastinal or hilar lymphadenopathy is identified. Small hiatal hernia. Approximate 2.2 cm vague hypodensity near the hepatic dome image 32 suboptimally evaluated on this examination. Suspected fatty liver. IMPRESSION: 1. Coronary artery calcium score of 5.7*. 2. Mild patchy bibasilar infiltrates and/or atelectasis. 3. Mild aneurysmal dilatation ascending thoracic aorta up to 4.2 cm. 4. Approximate 2.2 cm vague hepatic hypodensity near the hepatic dome otherwise suboptimally evaluated on this examination. Suggest dedicated contrast enhanced CT for further assessment. 5. Additional findings as above. *Coronary artery calcium scoring may be helpful in predicting the risk for future coronary heart disease events. According to the [employer] Clinical Expert Consensus Task Force, such testing provides important prognostic information in patients with more than one coronary heart disease risk factor. The coronary artery calcium score correlates with the annual risk of a non-fatal myocardial infarction or coronary heart disease . Coronary artery score Annual Risk 0-99 0.4% 100-399 1.3% >400 2.4% These three breakpoints correspond to lower, intermediate and high risk states for future coronary events. Such information should be used, along with appropriate clinical judgment, to make decisions regarding the intensity of risk factor management strategies to treat blood lipids and to modify other non-lipid coronary risk factors. Reference: [place] P et al. Circulation. 2007; 115:402-426 MACRO: None Signed by: Slade Galvez 12/27/2024 8:21 AM Dictation workstation: [id number] [facility] Protein Electro.Ur-Randomon 11-10-2024 M-SPIKE,U Normal [facility] Comment on above: Result Comment: NOT OBSERVED Performed By: #### L 500.4100, L3100.3450, L506.1000, L3600.4000 ####[facility] [address] [place], [address] Protein Electroph, Son 11-09 Albumin [Mass/Vol] 3.1 g/dL Normal 2.9-4.4 [facility] Comment on above: Performed By: #### L 500.4100, L3100.3450, L506.1000, L3600.4000 ####[facility] [address] [place], [address] Albumin/Globulin [Mass ratio] 0.7 {ratio} Normal 0.7-1.7 [facility] Comment on above: Performed By: #### L 500.4100, L3100.3450, L506.1000, L3600.4000 ####[facility] [address] [place], [address] ALPHA-1 GLOBUL 0.2 g/dL Normal 0.0-0.4 [facility] Comment on above: Performed By: #### L 500.4100, L3100.3450, L506.1000, L3600.4000 ####[facility] [address] [place], [address] ALPHA-2 GLOBUL 1.0 g/dL Normal 0.4-1.0 [facility] Comment on above: Performed By: #### L 500.4100, L3100.3450, L506.1000, L3600.4000 ####[facility] [address] [place], [address] BETA GLOBULIN 1.3 g/dL Normal 0.7-1.3 [facility] Comment on above: Performed By: #### L 500.4100, L3100.3450, L506.1000, L3600.4000 ####[facility] [address] [place], [address] GAMMA GLOBULIN 1.9 g/dL High 0.4-1.8 [facility] Comment on above: Performed By: #### L 500.4100, L3100.3450, L506.1000, L3600.4000 ####[facility] [address] [place], [address] Globulin (S) [Mass/Vol] 4.4 g/dL High 2.2-3.9 [facility] Comment on above: Performed By: #### L 500.4100, L3100.3450, L506.1000, L3600.4000 ####[facility] [address] [place], [address] INTERPRETATION Comment Normal . [facility] Comment on above: Result Comment: Prot ein electrophoresis scan will follow via computer, mail, or bobbin doffer delivery. Performed By: #### L 500.4100, L3100.3450, L506.1000, L3600.4000 ####[facility] [address] [place], [address] M-SPIKE Not Observed Normal Not Observed [facility] Comment on above: Performed By: #### L 500.4100, L3100.3450, L506.1000, L3600.4000 ####[facility] [address] [place], [address] NOTE: Comment Normal . [facility] Comment on above: Result Comment: The SPE pattern reflects a polyclonal increase in gamma globulin. Hypergammaglobulinemia is found in a wide variety of infectious, non-infectious, and autoimmune disease states. Evidence of monoclonal protein is not apparent. Performed By: #### L 500.4100, L3100.3450, L506.1000, L3600.4000 ####[facility] [address] [place], [address] Protein [Mass/Vol] 7.5 g/dL Normal 6.0-8.5 [facility] Comment on above: Performed By: #### L 500.4100, L3100.3450, L506.1000, L3600.4000 ####[facility] [address] [place], [address] Vitamin D,25 Hydroxyon 11-08 Vitamin D 25-OH 34.7 ng/mL Normal [facility] Comment on above: Result Comment: Deloris min D 25(OH) Status Range Deficiency <20 ng/mL (50nmol/L) Insufficiency 20 - 30 ng/mL (50 - 75 nmol/L) Sufficiency 30 - 100 ng/mL (75 - 250 nmol/L) Toxicity >100 ng/mL (>250 nmol/L) Performed By: #### L 500.4100, L3100.3450, L506.1000, L3600.4000 ####[facility] [address] [place], [address] 90-IU-Ltptujw DOrdered By: Matt Márquez on 11-06-2024 Vitamin D 25-Hydroxy 34.7 ng/mL [facility] Comment on above: Vitamin D 25(OH) Sta tus Range Deficiency <20 ng/mL (50nmol/L) Insufficiency 20 - 30 ng/mL (50 - 75 nmol/L) Sufficiency 30 - 100 ng/mL (75 - 250 nmol/L) Toxicity >100 ng/mL (>250 nmol/L) Addendum DocumentOrdered By: Lesli Márquez on 11-06-2024 Protein Electrophoresis Note Comment . [facility] Comment on above: The SPE pattern refl ects a polyclonal increase in gammaglobulin. Hypergammaglobulinemia is found in a wide varietyof infectious, non-infectious, and autoimmune diseasestates. Evidence of monoclonal protein is not apparent. Albumin Elph (U) [Mass fract ion]Ordered By: Lesli Márquez on 11-06-2024 Urine Albumin 19.0 % . [facility] Albumin Elph [Mass/Vol]Order ed By: Lesli Márquez on 11-06-2024 Albumin [Mass/Vol] 3.1 g/dL 2.9-4.4 [facility] Albumin/Globulin Elph [Mass ratio]Ordered By: Lesli Márquez on 11-06-2024 Albumin/Globulin (PEP) 0.7 0.7-1.7 [facility] Alpha 1 globulin Elph (U) [M ass fraction]Ordered By: Lesli Márquez on 11-06-2024 Urine Deiei-3-Xfyezvis 4.1 % . [facility] Alpha 2 globulin Elph (24H U ) [Mass fraction]Ordered By: Lesli Márquez on 11-06-2024 Urine Tjvzb-1-Dyijepfbb 22.7 % . [facility] Nwawu-0-wtpaqptw measurement by protein electrophoresisOrdered By: Lesli Márquez on 11-06-2024 Izhjm-0-Uohragjkr 0.2 g/dL 0.0-0.4 [facility] Cysms-2-kjimflhf measurement by protein electrophoresisOrdered By: Lesli Márquez on 11-06-2024 Xcpbx-5-Tmhbuedvk 1.0 g/dL 0.4-1.0 [facility] Beta globulin Elph (24H U) [ Mass fraction]Ordered By: Lesli Márquez on 11-06-2024 Urine Beta Globulin 26.4 % . [facility] glob[facility] Elph [Mass/Vol ]Ordered By: Lesli Márquez on 11-06-2024 Beta Globulins 1.3 g/dL 0.7-1.3 [facility] Gamma globulin Elph (24H U) [Mass fraction]Ordered By: Lesli Márquez on 11-06-2024 Urine Gamma Globulin 27.8 % . [facility] globulin [facility] b y protein electrophoresisOrdered By: Lesli Márquez on 11-06-2024 Gamma Globulins 1.9 g/dL High 0.4-1.8 [facility] Globulin (S) [Mass/Vol]Order ed By: Lesli Márquez on 11-06-2024 Globulin (PEP) 4.4 g/dL High 2.2-3.9 [facility] High density lipoprotein (HD L) measurementOrdered By: Lesli Márquez on 11-06-2024 Cholesterol in HDL [Mass/Vol] 54 mg/dL >40 [facility] Comment on above: The drugs N-Acetylcy steine and Metamizole may falsely depress this assay. Reference Range HDL <40 mg/dL Low HDL Cholesterol HDL >or= 60 mg/dL High HDL Cholesterol Lipid Profileon 11-06-2024 Cholesterol [Mass/Vol] 207 mg/dL High 200 [facility] Comment on above: Result Comment: <200 mg/dL Desirable 200-240 mg/dL Borderline >240 mg/dL High Risk Performed By: #### L 500.4100, L3100.3450, L506.1000, L3600.4000 ####[facility] [address] [place], [address] Cholesterol in HDL [Mass/Vol] 54 mg/dL Normal [facility] Comment on above: Result Comment: The drugs N-Acetylcysteine and Metamizole may falsely depress this assay. Reference Range HDL <40 mg/dL Low HDL Cholesterol HDL >or= 60 mg/dL High HDL Cholesterol Performed By: #### L 500.4100, L3100.3450, L506.1000, L3600.4000 ####[facility] [address] [place], [address] Cholesterol in LDL [Mass/Vol] 119 mg/dL Normal 0-130 [facility] Comment on above: Performed By: #### L 500.4100, L3100.3450, L506.1000, L3600.4000 ####[facility] [address] [place], [address] Cholesterol in VLDL [Mass/Vol] 34 mg/dL Normal 5-40 [facility] Comment on above: Performed By: #### L 500.4100, L3100.3450, L506.1000, L3600.4000 ####[facility] [address] [place], [address] Triglyceride [Mass/Vol] 171 mg/dL Normal [facility] Comment on above: Result Comment: The drugs N-Acetylcysteine and Metamizole may falsely depress this assay. Serum Triglycerides Reference Interval Normal <150 mg/dL Borderline high 150 - 199 mg/dL High 200 - 499 mg/dL Very High > or = 500 mg/dL Performed By: #### L 500.4100, L3100.3450, L506.1000, L3600.4000 ####[facility] [address] [place], [address] Low density lipoprotein (LDL ) cholesterol measurementOrdered By: Lesli Márquez on 11-06-2024 Cholesterol in LDL [Mass/Vol] 119 mg/dL 0-130 [facility] Protein Fractions Elph [Inte rp]Ordered By: Lesli Márquez on 11-06-2024 Protein Electrophoresis Interpret Comment . [facility] Comment on above: Protein electrophore sis scan will follow via computer,mail, or bobbin doffer delivery. Protein.monoclonal Elph (U) [Mass fraction]Ordered By: Lesli Márquez on 11-06-2024 Ur Protein Electrophoresis M-Terrance See comment [facility] Comment on above: NOT OBSERVED Protein.monoclonal Elph [Mas s/Vol]Ordered By: Lesli Márquez on 11-06-2024 Protein Electrophoresis M-Terrance Not Observed g/dL Not Observed [facility] Serum or plasma cholesterol measurement (mass/volume)Ordered By: Lesli Márquez on 11-06-2024 Cholesterol [Mass/Vol] 207 mg/dL High <200 [facility] Comment on above: <200 mg/dL Desirable 200-240 mg/dL Borderline >240 mg/dL High Risk Serum or plasma protein abbey urement (mass/volume)Ordered By: Lesli Márquez on 11-06-2024 Protein [Mass/Vol] 7.5 g/dL 6.0-8.5 [facility] Triglycerides measurementOrd ered By: Lesli Márquez on 11-06-2024 Triglyceride [Mass/Vol] 171 mg/dL <199 [facility] Comment on above: The drugs N-Acetylcy steine and Metamizole may falsely depress this assay.Serum Triglycerides Reference Interval Normal <150 mg/dL Borderline high 150 - 199 mg/dL High 200 - 499 mg/dL Very High > or = 500 mg/dL Urine protein measurement (m ass/volume)Ordered By: Lesli Márquez on 11-06-2024 Protein (U) [Mass/Vol] 8.7 mg/dL Not Estab. [facility] Very low density lipoprotein (VLDL) cholesterol measurementOrdered By: Lesli Márquez on 11-06-2024 VLDL Cholesterol 34 mg/dL 5-40 [facility] Vitamin D,25 Hydroxyon 07-05 Vitamin D 25-OH 30.0 ng/mL Normal [facility] Comment on above: Result Comment: Deloris min D 25(OH) Status Range Deficiency <20 ng/mL (50nmol/L) Insufficiency 20 - 30 ng/mL (50 - 75 nmol/L) Sufficiency 30 - 100 ng/mL (75 - 250 nmol/L) Toxicity >100 ng/mL (>250 nmol/L) Performed By: #### L 502.0250, L501.9520, L506.1000, L500.4100, L400.0001, L501.9985, L100.0100, L500.4050 ####[facility] [address] [place], [address] CBC W/Diff, Automatedon 06-20 Absolute Lymph 2.29 X10 3/uL Normal 0.83-4.51 [facility] Comment on above: Performed By: #### L 502.0250, L501.9520, L506.1000, L500.4100, L400.0001, L501.9985, L100.0100, L500.4050 ####[facility] [address] [place], [address] Absolute Neut 4.5 X10 3/uL Normal 2.0-7.7 [facility] Comment on above: Performed By: #### L 502.0250, L501.9520, L506.1000, L500.4100, L400.0001, L501.9985, L100.0100, L500.4050 ####[facility] [address] [place], [address] Basophils/100 WBC (Bld) 0.7 % Normal 0-1 [facility] Comment on above: Performed By: #### L 502.0250, L501.9520, L506.1000, L500.4100, L400.0001, L501.9985, L100.0100, L500.4050 ####[facility] [address] [place], [address] Eosinophils/100 WBC (Bld) 3.0 % Normal 0-5 [facility] Comment on above: Performed By: #### L 502.0250, L501.9520, L506.1000, L500.4100, L400.0001, L501.9985, L100.0100, L500.4050 ####[facility] [address] [place], [address] Erythrocyte distribution width (RBC) [Ratio] 12.4 % Normal 11.6-14.6 [facility] Comment on above: Performed By: #### L 502.0250, L501.9520, L506.1000, L500.4100, L400.0001, L501.9985, L100.0100, L500.4050 ####[facility] [address] [place], [address] Hematocrit (Bld) [Volume fraction] 39.4 % Normal 37-47 [facility] Comment on above: Performed By: #### L 502.0250, L501.9520, L506.1000, L500.4100, L400.0001, L501.9985, L100.0100, L500.4050 ####[facility] [address] [place], [address] Hemoglobin (Bld) [Mass/Vol] 12.6 g/dL Normal 12.0-15.0 [facility] Comment on above: Performed By: #### L 502.0250, L501.9520, L506.1000, L500.4100, L400.0001, L501.9985, L100.0100, L500.4050 ####[facility] [address] [place], [address] IG% 0.300 Normal 0.0-0.9 [facility] Comment on above: Result Comment: IG% - Immature Granulocytes (promyelocytes, myelocytes and metamyelocytes) > 1% indicates that a LEFT SHIFT is Present. Performed By: #### L 502.0250, L501.9520, L506.1000, L500.4100, L400.0001, L501.9985, L100.0100, L500.4050 ####[facility] [address] [place], [address] Lymphocytes/100 WBC (Bld) 30.1 % Normal 19-41 [facility] Comment on above: Performed By: #### L 502.0250, L501.9520, L506.1000, L500.4100, L400.0001, L501.9985, L100.0100, L500.4050 ####[facility] [address] [place], [address] MCH (RBC) [Entitic mass] 29.6 pg Normal 27.0-32.0 [facility] Comment on above: Performed By: #### L 502.0250, L501.9520, L506.1000, L500.4100, L400.0001, L501.9985, L100.0100, L500.4050 ####[facility] [address] [place], [address] MCHC (RBC) [Mass/Vol] 32.0 g/dL Normal 32-36 [facility] Comment on above: Performed By: #### L 502.0250, L501.9520, L506.1000, L500.4100, L400.0001, L501.9985, L100.0100, L500.4050 ####[facility] [address] [place], [address] MCV (RBC) [Entitic vol] 92.5 fL Normal 81-99 [facility] Comment on above: Performed By: #### L 502.0250, L501.9520, L506.1000, L500.4100, L400.0001, L501.9985, L100.0100, L500.4050 ####[facility] [address] [place], [address] Monocytes/100 WBC (Bld) 7.1 % Normal 0-10 [facility] Comment on above: Performed By: #### L 502.0250, L501.9520, L506.1000, L500.4100, L400.0001, L501.9985, L100.0100, L500.4050 ####[facility] [address] [place], [address] Neutrophils/100 WBC (Bld) 58.8 % Normal 47-70 [facility] Comment on above: Performed By: #### L 502.0250, L501.9520, L506.1000, L500.4100, L400.0001, L501.9985, L100.0100, L500.4050 ####[facility] [address] [place], [address] Nucleated RBC (Bld) [#/Vol] 0 10*3/uL Normal 0-5 [facility] Comment on above: Performed By: #### L 502.0250, L501.9520, L506.1000, L500.4100, L400.0001, L501.9985, L100.0100, L500.4050 ####[facility] [address] [place], [address] Platelet mean volume (Bld) [Entitic vol] 10.8 fL Normal 6.2-12.0 [facility] Comment on above: Performed By: #### L 502.0250, L501.9520, L506.1000, L500.4100, L400.0001, L501.9985, L100.0100, L500.4050 ####[facility] [address] [place], [address] Platelets (Bld) [#/Vol] 324 10*3/uL Normal 150-450 [facility] Comment on above: Performed By: #### L 502.0250, L501.9520, L506.1000, L500.4100, L400.0001, L501.9985, L100.0100, L500.4050 ####[facility] [address] [place], [address] RBC (Bld) [#/Vol] 4.26 10*6/uL Normal 4.2-5.4 [facility] Comment on above: Performed By: #### L 502.0250, L501.9520, L506.1000, L500.4100, L400.0001, L501.9985, L100.0100, L500.4050 ####[facility] [address] [place], [address] RDW SD 42.2 fl Normal 35.1-43.9 [facility] Comment on above: Performed By: #### L 502.0250, L501.9520, L506.1000, L500.4100, L400.0001, L501.9985, L100.0100, L500.4050 ####[facility] [address] [place], [address] WBC (Bld) [#/Vol] 7.6 10*3/uL Normal 4.4-11.0 [facility] Comment on above: Performed By: #### L 502.0250, L501.9520, L506.1000, L500.4100, L400.0001, L501.9985, L100.0100, L500.4050 ####[facility] [address] [place], [address] Comprehensive Metabolic Prof ilon 07-03-2024 Albumin [Mass/Vol] 3.0 g/dL Low 3.2-5.0 [facility] Comment on above: Performed By: #### L 502.0250, L501.9520, L506.1000, L500.4100, L400.0001, L501.9985, L100.0100, L500.4050 ####[facility] [address] [place], [address] Albumin/Globulin [Mass ratio] 0.6 {ratio} Low 0.9-2.4 [facility] Comment on above: Performed By: #### L 502.0250, L501.9520, L506.1000, L500.4100, L400.0001, L501.9985, L100.0100, L500.4050 ####[facility] [address] [place], [address] ALK P 108 U/L Normal 45-117 [facility] Comment on above: Performed By: #### L 502.0250, L501.9520, L506.1000, L500.4100, L400.0001, L501.9985, L100.0100, L500.4050 ####[facility] [address] [place], [address] ALT [Catalytic activity/Vol] 17 U/L Normal 13-56 [facility] Comment on above: Performed By: #### L 502.0250, L501.9520, L506.1000, L500.4100, L400.0001, L501.9985, L100.0100, L500.4050 ####[facility] [address] [place], [address] AST [Catalytic activity/Vol] 14 U/L Low 15-37 [facility] Comment on above: Performed By: #### L 502.0250, L501.9520, L506.1000, L500.4100, L400.0001, L501.9985, L100.0100, L500.4050 ####[facility] [address] [place], [address] Bilirubin [Mass/Vol] 0.50 mg/dL Normal 0.20-1.00 [facility] Comment on above: Result Comment: For patients on eltrombopag therapy, use of Dimension [place] TBIL is not recommended. Performed By: #### L 502.0250, L501.9520, L506.1000, L500.4100, L400.0001, L501.9985, L100.0100, L500.4050 ####[facility] [address] [place], [address] BUN/CRE 23.8 RATIO High 10-20 [facility] Comment on above: Performed By: #### L 502.0250, L501.9520, L506.1000, L500.4100, L400.0001, L501.9985, L100.0100, L500.4050 ####[facility] [address] [place], [address] CA,Total 8.8 mg/dL Normal 8.5-10.1 [facility] Comment on above: Performed By: #### L 502.0250, L501.9520, L506.1000, L500.4100, L400.0001, L501.9985, L100.0100, L500.4050 ####[facility] [address] [place], [address] Chloride [Moles/Vol] 106 mmol/L Normal 98-107 [facility] Comment on above: Performed By: #### L 502.0250, L501.9520, L506.1000, L500.4100, L400.0001, L501.9985, L100.0100, L500.4050 ####[facility] [address] [place], [address] CO2 [Moles/Vol] 22.0 mmol/L Normal 21.0-32.0 [facility] Comment on above: Performed By: #### L 502.0250, L501.9520, L506.1000, L500.4100, L400.0001, L501.9985, L100.0100, L500.4050 ####[facility] [address] [place], [address] Creatinine [Mass/Vol] 0.59 mg/dL Normal 0.55-1.02 [facility] Comment on above: Result Comment: The validity of the calculated GFR GFRAA in patients over 70 years has not been determined. Clinical correlation is essential. Performed By: #### L 502.0250, L501.9520, L506.1000, L500.4100, L400.0001, L501.9985, L100.0100, L500.4050 ####[facility] [address] [place], [address] EST GFR - AA 141 mL/min Normal >60 [facility] Comment on above: Result Comment: Afri can [place] GFR Calc Performed By: #### L 502.0250, L501.9520, L506.1000, L500.4100, L400.0001, L501.9985, L100.0100, L500.4050 ####[facility] [address] [place], [address] GAP 10 Normal 5-15 [facility] Comment on above: Performed By: #### L 502.0250, L501.9520, L506.1000, L500.4100, L400.0001, L501.9985, L100.0100, L500.4050 ####[facility] [address] [place], [address] GFR/1.73 sq M.predicted among non-blacks MDRD (S/P/Bld) [Vol rate/Area] 117 mL/min/{1.73_m2} Normal >60 [facility] Comment on above: Result Comment: Non- GFR Calc Performed By: #### L 502.0250, L501.9520, L506.1000, L500.4100, L400.0001, L501.9985, L100.0100, L500.4050 ####[facility] [address] [place], [address] Globulin (S) [Mass/Vol] 4.8 g/dL High 2.2-4.2 [facility] Comment on above: Performed By: #### L 502.0250, L501.9520, L506.1000, L500.4100, L400.0001, L501.9985, L100.0100, L500.4050 ####[facility] [address] [place], [place], [id number] Glucose [Mass/Vol] 103 mg/dL Normal 74-106 [facility] Comment on above: Result Comment: Fast ing Glucose result from 100 to 125 mg/dL suggests IMPAIRED HOMEOSTASIS per A.D.A. criteria. Performed By: #### L 502.0250, L501.9520, L506.1000, L500.4100, L400.0001, L501.9985, L100.0100, L500.4050 ####[facility] [address] [place], [place], [phone]) Potassium [Moles/Vol] 3.5 mmol/L Normal 3.5-5.1 [facility] Comment on above: Performed By: #### L 502.0250, L501.9520, L506.1000, L500.4100, L400.0001, L501.9985, L100.0100, L500.4050 ####[facility] [address] [place], [address] Sodium [Moles/Vol] 138 mmol/L Normal 136-145 [facility] Comment on above: Performed By: #### L 502.0250, L501.9520, L506.1000, L500.4100, L400.0001, L501.9985, L100.0100, L500.4050 ####[facility] [address] [place], [address] T PROT 7.8 g/dL Normal 6.4-8.2 [facility] Comment on above: Performed By: #### L 502.0250, L501.9520, L506.1000, L500.4100, L400.0001, L501.9985, L100.0100, L500.4050 ####[facility] [address] [place], [address] Urea nitrogen [Mass/Vol] 14 mg/dL Normal 7-18 [facility] Comment on above: Performed By: #### L 502.0250, L501.9520, L506.1000, L500.4100, L400.0001, L501.9985, L100.0100, L500.4050 ####[facility] [address] [place], [address] Hemoglobin A1con 07-03-2024 HbA1c (Bld) [Mass fraction] 5.5 % Normal 3.8-5.6 [facility] Comment on above: Result Comment: Norm al < 5.7 % Prediabetic 5.7 - 6.4 % Diabetic >or= 6.5 % Please note range changes. Performed By: #### L 502.0250, L501.9520, L506.1000, L500.4100, L400.0001, L501.9985, L100.0100, L500.4050 ####[facility] [address] [place], [address] Lipid Profileon 07-03-2024 Cholesterol [Mass/Vol] 208 mg/dL High 200 [facility] Comment on above: Result Comment: <200 mg/dL Desirable 200-240 mg/dL Borderline >240 mg/dL High Risk Performed By: #### L 502.0250, L501.9520, L506.1000, L500.4100, L400.0001, L501.9985, L100.0100, L500.4050 ####[facility] [address] [place], [address] Cholesterol in HDL [Mass/Vol] 49 mg/dL Normal [facility] Comment on above: Result Comment: The drugs N-Acetylcysteine and Metamizole may falsely depress this assay. Reference Range HDL <40 mg/dL Low HDL Cholesterol HDL >or= 60 mg/dL High HDL Cholesterol Performed By: #### L 502.0250, L501.9520, L506.1000, L500.4100, L400.0001, L501.9985, L100.0100, L500.4050 ####[facility] [address] [place], [address] Cholesterol in LDL [Mass/Vol] 136 mg/dL High 0-130 [facility] Comment on above: Performed By: #### L 502.0250, L501.9520, L506.1000, L500.4100, L400.0001, L501.9985, L100.0100, L500.4050 ####[facility] [address] [place], [address] Cholesterol in VLDL [Mass/Vol] 23 mg/dL Normal 5-40 [facility] Comment on above: Performed By: #### L 502.0250, L501.9520, L506.1000, L500.4100, L400.0001, L501.9985, L100.0100, L500.4050 ####[facility] [address] [place], [place], [phone] Triglyceride [Mass/Vol] 115 mg/dL Normal W [facility] Comment on above: Result Comment: The drugs N-Acetylcysteine and Metamizole may falsely depress this assay. Serum Triglycerides Reference Interval Normal <150 mg/dL Borderline high 150 - 199 mg/dL High 200 - 499 mg/dL Very High > or = 500 mg/dL Performed By: #### L 502.0250, L501.9520, L506.1000, L500.4100, L400.0001, L501.9985, L100.0100, L500.4050 ####[facility] [address] [place], [place], [phone] Microalb:Creat Ratio,Random URon 07-03-2024 Creatinine [Mass/Vol] 176.00 mg/dL Normal NO RAN GE EST. [facility] Comment on above: Performed By: #### L 502.0250, L501.9520, L506.1000, L500.4100, L400.0001, L501.9985, L100.0100, L500.4050 ####[facility] [address] [place], [place], [phone] MALB:CRE 19.2 mg/g CRE Normal <30 mg/g CRE [facility] Comment on above: Performed By: #### L 502.0250, L501.9520, L506.1000, L500.4100, L400.0001, L501.9985, L100.0100, L500.4050 ####[facility] [address] [place], [place], [phone] MICROALBUMIN,UR 33.8 mg/L Normal NO RANGE EST. [facility] Comment on above: Performed By: #### L 502.0250, L501.9520, L506.1000, L500.4100, L400.0001, L501.9985, L100.0100, L500.4050 ####[facility] [address] [place], [place], [phone] Thyroid Stim Hormone (TSH)on 07-03-2024 TSH 1.720 uIU/mL Normal 0.358-3.74 0 [facility] Comment on above: Performed By: #### L 502.0250, L501.9520, L506.1000, L500.4100, L400.0001, L501.9985, L100.0100, L500.4050 ####[facility] [address] [place], [place], [phone] Urinalysis, Completeon 07-03 BACTERIA RARE Normal None Seen [facility] Comment on above: Order Comment: Urine , Random Performed By: #### L 502.0250, L501.9520, L506.1000, L500.4100, L400.0001, L501.9985, L100.0100, L500.4050 ####[facility] [address] [place], [place], [phone] EPI,SQUAMOUS 0-5 SEEN Normal 5-10 [facility] Comment on above: Order Comment: Urine , Random Performed By: #### L 502.0250, L501.9520, L506.1000, L500.4100, L400.0001, L501.9985, L100.0100, L500.4050 ####[facility] [address] [place], [place], [phone] RBC > 100 SEEN Normal 0-5 [facility] Comment on above: Order Comment: Urine , Random Performed By: #### L 502.0250, L501.9520, L506.1000, L500.4100, L400.0001, L501.9985, L100.0100, L500.4050 ####[facility] [address] [place], [place], [phone] WBC 5-10 SEEN Normal 0-5 [facility] Comment on above: Order Comment: Urine , Random Performed By: #### L 502.0250, L501.9520, L506.1000, L500.4100, L400.0001, L501.9985, L100.0100, L500.4050 ####[facility] [address] [place], [address] Mucus Ql (Urine sed) 0 SEEN Normal [facility] Comment on above: Order Comment: Urine , Random Performed By: #### L 502.0250, L501.9520, L506.1000, L500.4100, L400.0001, L501.9985, L100.0100, L500.4050 ####[facility] [address] [place], [address] Colonoscopy Reporton 024 Colonoscopy Report [facility] Medical Records Department [address] [place] [address] Colonoscopy Report MR#: [id number] Acct: [id number] Name: ALIX PALMRE Rep #: [id number] : 1975 48 From: Christie Ortiz MD PCP: Dr. Lesli Márquez, DO Status:REG [facility] Patient Name: Alix Palmer Procedure Date: 04/15/2024 12:35 PM Date of : 1975 Age: 48 Procedure: Colonoscopy Indications: Screening for colorectal malignant neoplasm Providers: Christie Ortiz MD Referring MD: Lesli Márquez Medicines: Monitored Anesthesia Care Patient Profile: This is a 48 year old female. Last Colonoscopy: none. The patient's first colonoscopy is today. Complications: No immediate complications. Procedure: Pre-Anesthesia Assessment: - Prior to the procedure, a History and Physical was performed, and patient medications and allergies were reviewed. The patient's tolerance of previous anesthesia was also reviewed. The risks and benefits of the procedure and the sedation options and risks were discussed with the patient. All questions were answered, and informed consent was obtained. Prior Anticoagulants: The patient has taken no anticoagulant or antiplatelet agents. ASA Grade Assessment: Per anesthesia. After reviewing the risks and benefits, the patient was deemed in satisfactory condition to undergo the procedure. After I obtained informed consent, the scope was passed under direct vision. Throughout the procedure, the patient's blood pressure, pulse, and oxygen saturations were monitored continuously. The Colonoscope was introduced through the anus and advanced to the cecum, identified by the appendiceal orifice, ileocecal valve and palpation. The colonoscopy was performed without difficulty. The patient tolerated the procedure well. The quality of the bowel preparation was good. Scope In: 12:50:00 PM Scope Withdrawal Time 0 hours 10 minutes 59 seconds Scope Out: 1:07:26 PM Total Procedure Duration Time 0 hours 17 minutes 26 seconds Findings: Hemorrhoids were found on perianal exam. Non-bleeding internal hemorrhoids were found. The hemorrhoids were Grade I (internal hemorrhoids that do not prolapse). A 7 mm polyp was found in the descending colon. The polyp was semi-pedunculated. The polyp was removed with a hot snare. Resection and retrieval were complete. A few small-mouthed diverticula were found in the sigmoid colon. The exam was otherwise without abnormality. Impression: - Hemorrhoids found on perianal exam. - Non-bleeding internal hemorrhoids. - One 7 mm polyp in the descending colon, removed with a hot snare. Resected and retrieved. - Diverticulosis in the sigmoid colon. - The examination was otherwise normal. Recommendation: - Discharge patient to home. - Resume previous diet. - Continue present medications. - Await pathology results. - Repeat colonoscopy in 5 years for surveillance based on pathology results. Procedure Code(s): --- Professional --- 68500, PT, Colonoscopy, flexible; with removal of tumor(s), polyp(s), or other lesion(s) by snare technique Diagnosis Code(s): --- Professional --- Z12.11, Encounter for screening for malignant neoplasm of colon K64.0, First degree hemorrhoids D12.4, Benign neoplasm of descending colon K57.30, Diverticulosis of large intestine without perforation or abscess without bleeding CPT copyright 2021 [employer]. All rights reserved. The codes documented in this report are preliminary and upon accounts payable bookkeeper review may be revised to meet current compliance requirements. MD Christie Dutta MD 04/15/2024 1:12:08 PM This report has been signed electronically. Number of Addenda: 0 Note Initiated On: 04/15/2024 12:35 PM 04/15/24 1312 Date Christie Smith Signature: Date (if indicated) CC: Dr. Lesli Márquez DO; Dr. Christie Ortiz MD Date Dictated: 04/15/24 1235 Date Transcribed: Parquet Floor Layer'S Helper: TR Signed [facility] MR/POSTOP.ANEdavid 04-15-2024 MR/POSTOP.[facility] Medical Records Department [address] [place] [address] Anesthesia Postop Eval I 04/15/24 1314 MR#: [id number] Acct: [id number] Name: ALIX PALMER Rep #: [id number] : 1975 48 From: Po Neal MD PCP: Dr. Lesli Márquez DO Status:REG SDC Y Race: C Location: [place] [address] Anesthesia: Postop Eval I Current Vital Signs Temperature: 97 F Pulse Rate: 78 Blood Pressure: 90/49 Respiratory Rate: 6 Pulse Ox: 100 Oxygen Delivery Method: Room Air Assessment Airway patent: Yes Spontaneous unlabored respirations: Yes Mental status: Awake and Calm nausea: No Vomiting: No Anesthesia Complication: No Fluid Hydration Crystalloid volume administer (ml): 600 Total IV fluid infused: 600 Progress Note Anesthesia document: Postop Eval 1 completed: Yes 04/15/24 1316 Date Po Smith Signature: Date CC: Signed [facility] MR/[id number] 04-15-2024 MR/POSTOPAN2 [facility] Medical Records Department [address] [place] [address] Anesthesia Postop Eval II 04/15/24 1319 MR#: [id number] Acct: [id number] Name: ALIX PALMER Rep #: [id number] : 1975 48 From: Mo Costa MD PCP: Dr. Lesli Márquez, DO Status:REG SDC Y Race: C [facility]: [facility] Anesthesia Postop Eval I Sum Postop Eval Completion status Anesthesia document: Postop Eval 1 completed: Yes Anesthesia Postop Eval I Summary Anesthesia Postop Eval I Summary: Anesthesia Postop Eval I: Assessment Summary Airway patent Yes 04/15/24 13:16 Spontaneous unlabored Yes 04/15/24 13:16 respirations Mental status Awake,Calm 04/15/24 13:16 nausea No 04/15/24 13:16 Vomiting No 04/15/24 13:16 Anesthesia Postop Eval I: Fluid Summary Crystalloid volume administer 600 04/15/24 13:16 (ml) Colloids volume administered ( ml) Blood Product volume administered (ml) Total IV fluid infused 600 04/15/24 13:16 Anesthesia Postop Eval I: Summary Notes Anesthesia Complication No 04/15/24 13:16 Anesthesia Complication Comment: Post-operative progress note Anesthesia: Postop Eval II Evaluation Mental status: Awake Pain Level: 0 nausea: No Vomiting: No Complications Anesthesia Complication: No 04/15/24 1320 Date Mo Costa MD Cosigner Signature: Date CC: Signed Normal [facility] ,Urineon 04-15-2024 Beta HCG ( test) Ql (U) Negative Normal [facility] Comment on above: Result Comment: Very dilute urine specimens, as indicated by a low specific gravity, may not contain sales representative wire rope levels of hCG. If is still suspected, a first morning urine specimen should be collected 48 hours later and tested. Performed By: #### L 400.7600 ####[facility] [address] [place], [address] Surgery Specimen Level Omar 04-15-2024 Surgery Specimen Level IV Patient Age/Sex Location Account Attending Physician ALIX PALMER 48/F EN [id number] Dr. Christie Ortiz MD Specimen: [id number] Received: 04/15/24 Status: FELIZ Colón Num: [id number] Spec Type: COLON BX Subm Dr: Dr. Christie Ortiz MD HEADER OPERATION: Colonoscopy with polypectomy PRE-OP DIAGNOSIS: Encounter for screening for malignant neoplasm of colon, gastric reflux TISSUE SUBMITTED: Descending colon polyp MICROSCOPIC DIAGNOSIS Descending colon polyp, polypectomy: Consistent with inflammatory polyp. [facility] 04/19/2024 MICROSCOPIC DESCRIPTION Slides are reviewed. GROSS DESCRIPTION Received in fixative is one container labeled with the patient's name and designated Descending polyp. The specimen consists of a mora-pink polyp measuring 0.7 x 0.5 x 0.3cm. Also present in the container is a small piece of mora soft tissue measuring 0.2 x 0.2 x 0.1cm. The entire specimen is submitted in one cassette. [facility] 04/16/2024 TC:5 CPT:95532 Patient Age/Sex Location Account Attending Physician ALIX PALMER 48/F EN [id number] Dr. Christie Ortiz MD Signed (signature on file) Dr. Matthias Howell MD 04/19/24 1203 Normal [facility] Comment on above: Performed By: #### P SUIV ####[facility] [address] 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 No acute fracture. Joint alignment is anatomic. Joint spaces are preserved. No significant joint effusion. Soft tissues are within normal limits. IMPRESSION: No acute fracture or traumatic malalignment. 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 IOM ([place] of [employer]). 2010. Dietary reference intakes for calcium and D. [place]: The National Academies Press.2. Deshaun MF, Anshu FRANCISCO, Rodolfo PATEL, et al. Evaluation, treatment, and prevention of vitamin D deficiency: an Endocrine Society clinical practice guideline. JCEM. 2010; 96(7):1911-30. PATIENT WAS FASTINGP ERFORMED BY: SellanApp MD [id number] CBC W/AUTO DIFF WBC (35862)O rdered By: Blindstitch Lapel Padder on 03-13-2023 Basophils (Bld) [#/Vol] 0.1 10*3/uL Normal 0.0-0.2 [facility]; [facility] Work Phone: Comment on above: PATIENT WAS FASTINGP ERFORMED BY: [employer] [place] [id number] Basophils/100 WBC (Bld) 1 % Normal [facility]; [facility] Work Phone: Comment on above: PATIENT WAS FASTINGP ERFORMED BY: [employer] [facility] [facility] [id number] Eosinophils (Bld) [#/Vol] 0.2 10*3/uL Normal 0.0-0.4 [facility]; [facility] Work Phone: Comment on above: PATIENT WAS FASTINGP ERFORMED BY: CB [facility] [address] RoadDublin [place] [id number] Eosinophils/100 WBC (Bld) 3 % Normal [facility]; [facility] Medicine Work Phone: Comment on above: PATIENT WAS FASTINGP ERFORMED BY: CB [facility] Lxgfme3791 [address] RoadDublin [place] [id number] Erythrocyte distribution width (RBC) [Ratio] 12.4 % Normal 11.7-15.4 [facility]; [facility] Work Phone: Comment on above: PATIENT WAS FASTINGP ERFORMED BY: CB [facility] Dledsm0614 Str[address] Roadblin [place] [id number] Hematocrit (Bld) [Volume fraction] 39.4 % Normal 34.0-46.6 [facility]; [facility] Work Phone: Comment on above: PATIENT WAS FASTINGP ERFORMED BY: CB [facility] Oqpfsb6372 [address] Roadblin [place] [id number] Hemoglobin (Bld) [Mass/Vol] 13.6 g/dL Normal 11.1-15.9 [facility]; [facility] Work Phone: Comment on above: PATIENT WAS FASTINGP ERFORMED BY: CB [facility] Pmctgw7718 [address] RoadDublin [place] [id number] Immature granulocytes (Bld) [#/Vol] 0.0 10*3/uL Normal 0.0-0.1 [facility]; [facility] Work Phone: Comment on above: PATIENT WAS FASTINGP ERFORMED BY: CB [facility] Mdbkds6022 [address] RoadDublin [place] [id number] Immature granulocytes/100 WBC (Bld) 0 % Normal [facility]; [facility] Work Phone: Comment on above: PATIENT WAS FASTINGP ERFORMED BY: CB [facility] Tmwelq7815 [address] RoadDublin [place] [id number] Lymphocytes (Bld) [#/Vol] 2.6 10*3/uL Normal 0.7-3.1 [facility]; [facility] Work Phone: Comment on above: PATIENT WAS FASTINGP ERFORMED BY: JAYLIN [facility] Jcftdl6785 [address] RoadDublin [place] [id number] Lymphocytes/100 WBC (Bld) 34 % Normal [facility]; [facility] Work Phone: Comment on above: PATIENT WAS FASTINGP ERFORMED BY: CB [facility] Pournl9977 [address] RoadDublin [place] [id number] MCH (RBC) [Entitic mass] 30.6 pg Normal 26.6-33.0 [facility]; [facility] Work Phone: Comment on above: PATIENT WAS FASTINGP ERFORMED BY: JAYLIN [facility] Aqwbxa5981 [address] RoadDublin [place] [id number] MCHC (RBC) [Mass/Vol] 34.5 g/dL Normal 31.5-35.7 [facility]; [facility] Work Phone: Comment on above: PATIENT WAS FASTINGP ERFORMED BY: JAYLIN [facility] Mxnuqv5274 [address] RoadDublin [place] [id number] MCV (RBC) [Entitic vol] 89 fL Normal 79-97 C [facility]un[facility] medical centerensive [facility]; [facility] Work Phone: Comment on above: PATIENT WAS FASTINGP ERFORMED BY: JAYLIN [facility] Jfnmps9757 [address] RoadDublin [place] [id number] Monocytes (Bld) [#/Vol] 0.5 10*3/uL Normal 0.1-0.9 [facility]; [facility] Work Phone: Comment on above: PATIENT WAS FASTINGP ERFORMED BY: CB [facility] Ctrpms2960 [address] RoadDublin [place] [id number] Monocytes/100 WBC (Bld) 7 % Normal C omprehensive [facility]; [facility] Work Phone: Comment on above: PATIENT WAS FASTINGP ERFORMED BY: CB [facility] Tzmgka9281 [address] RoadDublin [place] [id number] Neutrophils (Bld) [#/Vol] 4.2 10*3/uL Normal 1.4-7.0 [facility]; [facility] Work Phone: Comment on above: PATIENT WAS FASTINGP ERFORMED BY: JAYLIN Paulinolin6370 [address] RoadDublin [place] [id number] Neutrophils/100 WBC (Bld) 55 % Normal [facility]; [facility] Work Phone: Comment on above: PATIENT WAS FASTINGP ERFORMED BY: JAYLIN Labbenita PaulinoYykaab4129 [address] RoadDublin [place] [id number] Platelets (Bld) [#/Vol] 340 10*3/uL Normal 150-450 [facility]; [facility] Work Phone: Comment on above: PATIENT WAS FASTINGP ERFORMED BY: JAYLIN Paulinolin6370 [address] RoadDublin [place] [id number] RBC (Bld) [#/Vol] 4.45 10*6/uL Normal 3.77-5.28 [facility] SSDensive [facility]; [facility] Work Phone: Comment on above: PATIENT WAS FASTINGP ERFORMED BY: JAYLIN Paulinolin6370 [address] RoadDublin [place] [id number] WBC (Bld) [#/Vol] 7.6 10*3/uL Normal 3.4-10.8 [facility]; [facility] Work Phone: Comment on above: PATIENT WAS FASTINGP ERFORMED BY: JAYLIN Paulinolin[address] [facility]in [place] [id number] LIPID PANEL ([id number])Ordered B y: Blindstitch Lapel Padder on 03-13-2023 Cholesterol [Mass/Vol] 220 mg/dL Abnormal 100-199 [facility]; [facility] Work Phone: Comment on above: PATIENT WAS FASTINGP ERFORMED BY: JAYLIN Yazanbenita PaulinoMcozva7019 [address] RoadDublin [place] [id number] Cholesterol in HDL [Mass/Vol] 44 mg/dL Normal [facility]; [facility] Work Phone: Comment on above: PATIENT WAS FASTINGP ERFORMED BY: JAYLIN Beal Zebvqz3586 [address] RoadNovant Health Forsyth Medical Centerin [place] [id number] Triglyceride [Mass/Vol] 123 mg/dL Normal 0-149 C [facility] healthensive [facility]; [facility] Work Phone: Comment on above: PATIENT WAS FASTINGP ERFORMED BY: JAYLIN Labcoyue Sgjtmr[address] [facility]in [place] [id number] LIPID PANEL ([id number]) 22 mg/dL Normal 5-40 [facility] SSDensive [facility]; [facility] Work Phone: Comment on above: PATIENT WAS FASTINGP ERFORMED BY: JAYLIN [facility] Ehwpuk[address] [facility]in [place] [id number] LIPID PANEL (16785) 154 mg/dL Abnormal 0-99 [facility]; [facility] Work Phone: Comment on above: PATIENT WAS FASTINGP ERFORMED BY: JAYLIN [facility] Ufkgnu8314 [facility] [id number] LIPID PANEL ([id number]) 3.5 {ratio} Abnormal 0.0-3.2 Comp [facility]; [facility] Work Phone: Comment on above: LDL/HDL Ratio Men Wo men 1/2 Avg.Risk 1.0 1.5 Avg.Risk 3.6 3.2 2X Avg.Risk 6.2 5.0 3X Avg.Risk 8.0 6.1 PATIENT WAS FASTINGP ERFORMED BY: JAYLIN [facility] Hrnmnz3925 [facility] [id number] METABOLIC PANEL, COMPREHENSI VE ([id number])Ordered By: Blindstitch Lapel Padder on 03-13-2023 Albumin [Mass/Vol] 4.1 g/dL Normal 3.8-4.8 [facility]; [facility] Work Phone: Comment on above: PATIENT WAS FASTINGP ERFORMED BY: JAYLIN [facility] Yjngbc2885 [facility] [id number] Albumin/Globulin [Mass ratio] 1.1 {ratio} Abnormal 1.2-2.2 [facility]; [facility] Work Phone: Comment on above: PATIENT WAS FASTINGP ERFORMED BY: JAYLIN [facility] Exxvei3785 [address] RoadDublin [place] [id number] ALP [Catalytic activity/Vol] 108 U/L Normal 44-121 [facility]; [facility] Work Phone: Comment on above: PATIENT WAS FASTINGP ERFORMED BY: [facility] Jxrtxt8517 [address] RoadDublin [place] [id number] ALT [Catalytic activity/Vol] 17 U/L Normal 0-32 [facility]; [facility] Work Phone: Comment on above: PATIENT WAS FASTINGP ERFORMED BY: [facility] Sgrxnu0476 [address] RoadDublin [place] [id number] AST [Catalytic activity/Vol] 19 U/L Normal 0-40 [facility]; [facility] Work Phone: Comment on above: PATIENT WAS FASTINGP ERFORMED BY: Lab[facility] Xfnblg4950 Satrr RoadDublin [place] [id number] Bilirubin [Mass/Vol] 0.5 mg/dL Normal 0.0-1.2 Comp rehensive Internal Medicine; [facility] Work Phone: Comment on above: PATIENT WAS FASTINGP ERFORMED BY: Lab[facility] Evhtwm2592 [address] RoadDublin [place] [id number] Calcium [Mass/Vol] 9.5 mg/dL Normal 8.7-10.2 [facility]; [facility] Work Phone: Comment on above: PATIENT WAS FASTINGP ERFORMED BY: [facility] Rrjvvd6384 [address] RoadDublin [place] [id number] Chloride [Moles/Vol] 102 mmol/L Normal 96-106 Comp rehensive Internal Medicine; [facility] Work Phone: Comment on above: PATIENT WAS FASTINGP ERFORMED BY: [facility] Phsquj6484 [address] RoadDublin [place] [id number] CO2 [Moles/Vol] 21 mmol/L Normal 20-29 Comprehen [facility]; [facility] Work Phone: Comment on above: PATIENT WAS FASTINGP ERFORMED BY: JAYLIN [facility] Wnbhom2638 [address] RoadDublin [place] [id number] Creatinine [Mass/Vol] 0.64 mg/dL Normal 0.57-1.00 [facility] prehensive Internal Medicine; [facility] Work Phone: Comment on above: PATIENT WAS FASTINGP ERFORMED BY: JAYLIN [facility] Kwrpiv1560 [address] Roadblin [place] [id number] GFR/1.73 sq M.predicted among non-blacks MDRD (S/P/Bld) [Vol rate/Area] 111 mL/min/{1.73_m2} Normal Comprehensi Internal Medicine; [facility] Work Phone: Comment on above: PATIENT WAS FASTINGP ERFORMED BY: JAYLIN [facility] Ntpyib9195 [address] Roadblin [place] [id number] Globulin (S) [Mass/Vol] 3.9 g/dL Normal 1.5-4.5 C car[facility] healthensive [facility] Medicine; [facility] Work Phone: Comment on above: PATIENT WAS FASTINGP ERFORMED BY: JAYLIN [facility] Dzblpm6266 [address] RoadDublin [place] [id number] Glucose [Mass/Vol] 93 mg/dL Normal 70-99 [facility]; [facility] Work Phone: Comment on above: PATIENT WAS FASTINGP ERFORMED BY: [facility] Nazuat2549 [address] RoadDublin [place] [id number] Potassium [Moles/Vol] 4.4 mmol/L Normal 3.5-5.2 [facility] prehensive Internal Medicine; [facility] Work Phone: Comment on above: PATIENT WAS FASTINGP ERFORMED BY: [facility] Eftrrs5602 [address] RoadDublin [place] [id number] Protein [Mass/Vol] 8.0 g/dL Normal 6.0-8.5 [facility]; [facility] Work Phone: Comment on above: PATIENT WAS FASTINGP ERFORMED BY: [facility] Mmfmva0809 [address] RoadDublin [place] [id number] Sodium [Moles/Vol] 137 mmol/L Normal 134-144 [facility]; [facility] Work Phone: Comment on above: PATIENT WAS FASTINGP ERFORMED BY: JAYLIN Labbenita PaulinoHbuwzs40[address] [facility]in [place] [id number] Urea nitrogen [Mass/Vol] 16 mg/dL Normal 6-24 [facility]; [facility] Work Phone: Comment on above: PATIENT WAS FASTINGP ERFORMED BY: JAYLIN [facility] Nrjane[address] [facility] [id number] Urea nitrogen/Creatinine [Mass ratio] 25 mg/mg Abnormal 9-23 [facility]; [facility] Work Phone: Comment on above: PATIENT WAS FASTINGP ERFORMED BY: JAYLIN Labcoyue PaulinoOjjxuj3261 [facility] [id number] MICROALBUMINOrdered By: [employer] Coagulator on 03-13-2023 Albumin DL <= 20 mg/L (U) [Mass/Vol] mg/dL Normal [facility]; [facility] Work Phone: Comment on above: PATIENT WAS FASTINGP ERFORMED BY: JAYLIN Labbenita PaulinoMzfqed1233 [facility] [id number] Albumin/Creatinine (U) [Mass ratio] <3 Normal 0-29 [facility]; [facility] Work Phone: Comment on above: Normal: 0 - 29 Moder ately increased: 30 - 300 Severely increased: >300 PATIENT WAS FASTINGP ERFORMED BY: JAYLIN [facility] Fxthgj3892 [facility] [id number] Creatinine (U) [Mass/Vol] 101.0 mg/dL Normal [facility]; [facility] Work Phone: Comment on above: PATIENT WAS FASTINGP ERFORMED BY: JAYLIN Labcoyue Cxgjby[address] [facility] [id number] TSH ([id number])Ordered By: [employer] m Coagulator on 03-13-2023 TSH Qn 2.380 {uIU/mL} Normal 0.450-4.50 0 [facility]; [facility] Work Phone: Comment on above: PATIENT WAS FASTINGP ERFORMED BY: JAYLIN Del Castillo[address] [facility] HospitalD[facility] [place] [id number] URINALYSIS, W/ MICRO ([id number]) Ordered By: Blindstitch Lapel Padder on 03-13-2023 Appearance (U) Clear Normal Comprehens [place] [facility]; [facility] Work Phone: Comment on above: PATIENT WAS FASTINGP ERFORMED BY: JAYLIN Del Castillo6370 [address] RoadDublin [place] [id number] Bilirubin Ql (U) Negative Normal Comprehe nsive Internal Medicine; [facility] Work Phone: Comment on above: PATIENT WAS FASTINGP ERFORMED BY: JAYLIN Paulinolin[address] [facility]in [place] [id number] Color (U) Yellow Normal [facility]; [facility] Work Phone: Comment on above: PATIENT WAS FASTINGP ERFORMED BY: JAYLIN Del Castillo[address] [facility] [id number] Glucose Ql (U) Negative Normal Comprehens [place] [facility]; [facility] Work Phone: Comment on above: PATIENT WAS FASTINGP ERFORMED BY: JAYLIN Paulinolin[address] [facility] [id number] Hemoglobin Ql (U) Negative Normal Compreh ensive Internal Medicine; [facility] Work Phone: Comment on above: PATIENT WAS FASTINGP ERFORMED BY: JAYLIN Del Castillo[address] [facility]in [place] [id number] Ketones Ql (U) Negative Normal Comprehens [place] [facility]; [facility] Work Phone: Comment on above: PATIENT WAS FASTINGP ERFORMED BY: JAYLIN Paulinolin6[address] [facility] HospitalDuin [place] [id number] Leukocyte esterase Test strip Ql (U) Negative Normal [facility]; [facility] Work Phone: Comment on above: PATIENT WAS FASTINGP ERFORMED BY: JAYLIN Paulinolin[address] [facility] [id number] Microscopic observation LM Nom (Urine sed) MICRON Normal [facility]; [facility] Work Phone: Comment on above: Microscopic follows if indicated. PATIENT WAS FASTINGP ERFORMED BY: JAYLIN Del Castillo6370 [address] RoadDublin [place] [id number] Microscopic observation LM Nom (Urine sed) See below: Normal [facility]; [facility] Work Phone: Comment on above: Microscopic was nazanin cated and was performed. PATIENT WAS FASTINGP ERFORMED BY: JAYLIN [facility] Gkhisq9885 [address] RoadDublin [place] [id number] Nitrite Ql (U) Negative Normal Comprehens [place] [facility]; [facility] Work Phone: Comment on above: PATIENT WAS FASTINGP ERFORMED BY: JAYLIN Emigdio Dqyohm[address] [facility] [id number] pH (U) 5.5 [pH] Normal 5.0-7.5 [facility]; [facility] Work Phone: Comment on above: PATIENT WAS FASTINGP ERFORMED BY: JAYLIN Emigdio Oinqzs[address] [facility] [id number] Protein Ql (U) Negative Normal Comprehens [place] [facility]; [facility] Work Phone: Comment on above: PATIENT WAS FASTINGP ERFORMED BY: JAYLIN Emigdio Sysfby2132 [facility] [id number] Specific gravity (U) [Rel density] 1.021 1 Normal 1.005-1.03 0 [facility]; [facility] Work Phone: Comment on above: PATIENT WAS FASTINGP ERFORMED BY: [facility] Wvzntw[address]80 [address] [facility]bl[facility] [place] [id number] Urobilinogen (U) [Mass/Vol] 0.2 mg/dL Normal 0.2-1.0 [facility]; [facility] Work Phone: Comment on above: PATIENT WAS FASTINGP ERFORMED BY: [facility] Deiaim[address] [facility] [id number] Absolute lymphocyte counton 08-14-2022 Lymphocytes Auto (Unsp spec) [#/Vol] 2.79 10*3/uL 0.83-4.51 [facility] Work Phone: Basophil percentageon 2021 Basophil percentage 0-5 SEEN /hpf 0-5 Wo [facility] Work Phone: Basophils/100 WBC (Bld) 0.5 % 0-1 W [facility] Work Phone: Chloride [Moles/Vol] 108 mmol/L 98-107 [facility]: Eosinophils/100 WBC (Bld) 1.3 % 0-5 [facility] Work Phone: Glucose [Mass/Vol] 115 mg/dL 74-106 [facility] Work Phone: Comment on above: Fasting Glucose resu lt from 100 to 125 mg/dL suggests IMPAIRED HOMEOSTASIS per A.D.A. criteria. Neutrophils (Bld) [#/Vol] 6.1 10*3/uL 2.0-7.7 [facility] Work Phone: Neutrophils/100 WBC (Bld) 61.8 % 47-70 [facility] Work Phone: Potassium [Moles/Vol] 3.4 mmol/L 3.5-5.1 [facility] Work Phone: Sodium [Moles/Vol] 139 mmol/L 136-145 [facility] Work Phone: WBC (Bld) [#/Vol] 9.9 10*3/uL 4.4-11.0 [facility] Work Phone: Bilirubin Test strip Ql (U)o n 08-14-2022 Bilirubin Ql (U) Negative Negative [facility] Work Phone: Blood erythrocytes count (nu mber/volume)on 08-14-2022 RBC (Bld) [#/Vol] 4.33 10*6/uL 4.2-5.4 [facility] Work Phone: Blood hemoglobin measurement (mass/volume)on 08-14-2022 Hemoglobin (Bld) [Mass/Vol] 13.3 g/dL 12.0-15.0 [facility] Work Phone: Blood lymphocytes/100 leukoc yteson 08-14-2022 Lymphocytes/100 WBC (Bld) 28.1 % 19-41 [facility] Work Phone: Blood monocytes/100 leukocyt eson 08-14-2022 Monocytes/100 WBC (Bld) 8.1 % 0-10 W [facility] Work Phone: Blood platelet mean volumeon 08-14-2022 Platelet mean volume (Bld) [Entitic vol] 11.1 fL 6.2-12.0 [facility] Work Phone: Determination of erythrocyte mean corpuscular volume (MCV)on 08-14-2022 MCV (RBC) [Entitic vol] 90.8 fL 81-99 [facility] Work Phone: Hematocrit Auto (Bld) [Volum e fraction]on 08-14-2022 Hematocrit (Bld) [Volume fraction] 39.3 % 37-47 [facility] Work Phone: Ketones Test strip Ql (U)on 08-14-2022 Ketones Ql (U) Negative Negative [facility] Work Phone: Laboratory - Chemistry and C hemistry - challengeon 08-14-2022 CO2 [Moles/Vol] 25.0 mmol/L 21.0-32.0 [facility] Work Phone: Urea nitrogen/Creatinine [Mass ratio] 18.0 mg/mg 10-20 [facility] Work Phone: Laboratory - Hematology and Cell countson 08-14-2022 Erythrocyte distribution width (RBC) [Entitic vol] 41.2 fL 35.1-43.9 [facility] Work Phone: Erythrocyte distribution width (RBC) [Ratio] 12.4 % 11.6-14.6 [facility] Work Phone: Immature granulocytes/100 WBC (Bld) 0.200 % 0.0-0.9 [facility] Work Phone: Comment on above: IG% - Immature Granu locytes (promyelocytes, myelocytes and metamyelocytes) > 1% indicates that a LEFT SHIFT is Present. MCH (RBC) [Entitic mass] 30.7 pg 27.0-32.0 [facility] Work Phone: Nucleated RBC/100 WBC (Bld) [Ratio] 0 % 0-5 [facility] Work Phone: MCHC Auto (RBC) [Mass/Vol]on 08-14-2022 MCHC (RBC) [Mass/Vol] 33.8 g/dL 32-36 [facility] Work Phone: Mucus LM Ql (Urine sed)on Mucus Ql (Urine sed) 0 SEEN /hpf [facility] Work Phone: Nitrite Test strip Ql (U)on 08-14-2022 Nitrite Ql (U) Negative Negative [facility] Work Phone: No Panel Informationon 08-14 Estimated Creatinine Clearance Calc 104.25 ml/min [facility] Work Phone: Estimated GFR (MDRD) Amer 136 mL/min >60 [facility] Work Phone: Comment on above: GFR Calc Estimated GFR (MDRD) Non-Af Amer 113 mL/min >60 [facility] Work Phone: Comment on above: Non- GFR Calc Platelets bldon 08-14-2022 Platelets (Bld) [#/Vol] 309 10*3/uL 150-450 [facility] Work Phone: Protein Test strip Ql (U)on 08-14-2022 Protein Ql (U) Negative Negative [facility] Work Phone: Serum or plasma calcium abbey urement (mass/volume)on 08-14-2022 Calcium [Mass/Vol] 9.3 mg/dL 8.5-10.1 [facility] Work Phone: Serum or plasma creatinine m easurement (mass/volume)on 08-14-2022 Creatinine [Mass/Vol] 0.61 mg/dL 0.55-1.02 [facility] Work Phone: Comment on above: The validity of the calculated GFR & GFRAA in patients over 70 years has not been determined. Clinical correlation is essential. Serum or plasma urea nitroge n measurement (mass/volume)on 08-14-2022 Urea nitrogen [Mass/Vol] 11 mg/dL 7-18 [facility] Work Phone: Squamous epithelial cells de tection in urine sediment by light microscopyon 08-14-2022 Epithelial cells.squamous LM Ql (Urine sed) 0-5 SEEN /hpf 5-10 [facility] Work Phone: Thin prep Papanicolaou smear with manual screeningon 08-14-2022 Thin prep Papanicolaou smear with manual screening 6 5-15 [facility] Work Phone: Urine blood detectionon 07-21 RBC Ql (U) Negative Negative [facility] Work Phone: RBC Ql (U) 0 SEEN /hpf 0-5 [facility] Work Phone: Urine clarityon 08-14-2022 Clarity (U) Sl. Cloudy Clear [facility] Work Phone: Urine color determinationon 08-14-2022 Color (U) Yellow Yellow [facility] Work Phone: Urine glucose detectionon Glucose Ql (U) Normal mg/dl Normal [facility] Work Phone: Urine leukocyte esterase det ection by dipstickon 08-14-2022 Leukocyte esterase Test strip Ql (U) 25 /ul Negative [facility] Work Phone: Urine pHon 08-14-2022 pH (U) 6.0 [pH] 5.0 - 8.0 [facility] Work Phone: Urine sediment bacteria coun t by microscopy (number/high power field)on 08-14-2022 Bacteria LM.HPF (Urine sed) [#/Area] 1 /[HPF] None Seen [facility] Work Phone: Urine specific gravity measu rementon 08-14-2022 Specific gravity (U) [Rel density] 1.010 1.002-1.03 0 [facility] Work Phone: Urobilinogen Auto test strip Ql (U)on 08-14-2022 Urobilinogen Ql (U) Normal mg/dl Normal [facility] Work Phone: CBC W/AUTO DIFF WBC ([id number])O rdered By: Blindstitch Lapel Padder on 03-28-2022 Basophils (Bld) [#/Vol] 0.1 10*3/uL Normal 0.0-0.2 [facility]; [facility] Work Phone: Comment on above: PATIENT NOT FASTINGP ERFORMED BY: [employer] LabCheapFlightsFinder70 Frog[facility] BopCritical access hospital [id number] Basophils/100 WBC (Bld) 1 % Normal C omprehensive Internal Medicine; [facility] Work Phone: Comment on above: PATIENT NOT FASTINGP ERFORMED BY: [employer] [facility] Sywjzw[address] On2 TechnologiesCritical access hospital [id number] Eosinophils (Bld) [#/Vol] 0.3 10*3/uL Normal 0.0-0.4 [facility]; [facility] Work Phone: Comment on above: PATIENT NOT FASTINGP ERFORMED BY: EDUS[address] [employer]in [place] [id number] Eosinophils/100 WBC (Bld) 3 % Normal [facility]; [facility] Work Phone: Comment on above: PATIENT NOT FASTINGP ERFORMED BY: [employer]70 Frogtek BopCritical access hospital [id number] Erythrocyte distribution width (RBC) [Ratio] 12.5 % Normal 11.7-15.4 [facility]; [facility] Work Phone: Comment on above: PATIENT NOT FASTINGP ERFORMED BY: JAYLIN [facility] Zvigym1218 [address] RoadDublin [place] [id number] Hematocrit (Bld) [Volume fraction] 40.6 % Normal 34.0-46.6 [facility]; [facility] Work Phone: Comment on above: PATIENT NOT FASTINGP ERFORMED BY: CB [facility] Pxbisl5577 [address] RoadDublin [place] [id number] Hemoglobin (Bld) [Mass/Vol] 13.7 g/dL Normal 11.1-15.9 [facility]; [facility] Work Phone: Comment on above: PATIENT NOT FASTINGP ERFORMED BY: CB [facility] Zqgeag8872 [address] RoadDublin [place] [id number] Immature granulocytes (Bld) [#/Vol] 0.0 10*3/uL Normal 0.0-0.1 [facility]; [facility] Medicine Work Phone: Comment on above: PATIENT NOT FASTINGP ERFORMED BY: CB [facility] [id number] [address] RoadDublin [place] [id number] Immature granulocytes/100 WBC (Bld) 0 % Normal [facility]; [facility] Work Phone: Comment on above: PATIENT NOT FASTINGP ERFORMED BY: CB [facility] Apepyl3244 [address] RoadDublin [place] [id number] Lymphocytes (Bld) [#/Vol] 2.9 10*3/uL Normal 0.7-3.1 [facility]; [facility] Work Phone: Comment on above: PATIENT NOT FASTINGP ERFORMED BY: CB [facility] [id number] [address] RoadDublin [place] [id number] Lymphocytes/100 WBC (Bld) 34 % Normal [facility]; [facility] Work Phone: Comment on above: PATIENT NOT FASTINGP ERFORMED BY: CB [facility] [id number] [address] RoadDublin [place] [id number] MCH (RBC) [Entitic mass] 30.6 pg Normal 26.6-33.0 [facility]; [facility] Work Phone: Comment on above: PATIENT NOT FASTINGP ERFORMED BY: JAYLIN [facility] Mizfqp2505 [address] RoadDublin [place] [id number] MCHC (RBC) [Mass/Vol] 33.7 g/dL Normal 31.5-35.7 [facility] prehensive Internal Medicine; [facility] Work Phone: Comment on above: PATIENT NOT FASTINGP ERFORMED BY: CB [facility] [id number] [address]Dublin [place] [id number] MCV (RBC) [Entitic vol] 91 fL Normal 79-97 C omprehensive [facility]; [facility] Work Phone: Comment on above: PATIENT NOT FASTINGP ERFORMED BY: CB [facility] Qdbllm2087 [address] RoadDublin [place] [id number] Monocytes (Bld) [#/Vol] 0.7 10*3/uL Normal 0.1-0.9 [facility]; [facility] Work Phone: Comment on above: PATIENT NOT FASTINGP ERFORMED BY: CB [facility] Evksax8036 [address] RoadDuin [place] [id number] Monocytes/100 WBC (Bld) 8 % Normal C [facility] healthensive [facility]; [facility] Work Phone: Comment on above: PATIENT NOT FASTINGP ERFORMED BY: CB [facility] Svoabv2685 [address] RoadDuin [place] [id number] Neutrophils (Bld) [#/Vol] 4.7 10*3/uL Normal 1.4-7.0 [facility]; [facility] Work Phone: Comment on above: PATIENT NOT FASTINGP ERFORMED BY: CB [facility] Icljog5770 [address]Dublin [place] [id number] Neutrophils/100 WBC (Bld) 54 % Normal [facility]; [facility] Work Phone: Comment on above: PATIENT NOT FASTINGP ERFORMED BY: CB [facility] Wumykx5323 [address] RoadDublin [place] [id number] Platelets (Bld) [#/Vol] 332 10*3/uL Normal 150-450 [facility]; [facility] Work Phone: Comment on above: PATIENT NOT FASTINGP ERFORMED BY: [facility]6370 [facility] [id number] RBC (Bld) [#/Vol] 4.48 10*6/uL Normal 3.77-5.28 [facility] SSDensive [facility]; [facility] Work Phone: Comment on above: PATIENT NOT FASTINGP ERFORMED BY: [facility]6370 [facility] [id number] WBC (Bld) [#/Vol] 8.6 10*3/uL Normal 3.4-10.8 [facility]; [facility] Work Phone: Comment on above: PATIENT NOT FASTINGP ERFORMED BY: [facility]6370 [facility] [id number] Absolute lymphocyte counton 03-06-2022 Lymphocytes Auto (Unsp spec) [#/Vol] 2.67 10*3/uL 0.83-4.51 [facility] Work Phone: Basophil percentageon 2021 Basophils/100 WBC (Bld) 0.4 % 0-1 [facility] Work Phone: Bilirubin [Mass/Vol] 0.50 mg/dL 0.20-1.00 [facility] Work Phone: Comment on above: For patients on eltr ombopag therapy, use of Dimension [place] TBIL is not recommended. Chloride [Moles/Vol] 105 mmol/L 98-107 [facility] Work Phone: Cholesterol [Mass/Vol] 213 mg/dL <200 [facility] Work Phone: Comment on above: <200 mg/dL Desirable 200-240 mg/dL Borderline >240 mg/dL High Risk Eosinophils/100 WBC (Bld) 0.6 % 0-5 [facility] Work Phone: Glucose [Mass/Vol] 94 mg/dL 74-106 [facility] Work Phone: Neutrophils (Bld) [#/Vol] 12.3 10*3/uL 2.0-7.7 [facility] Work Phone: Neutrophils/100 WBC (Bld) 77.3 % 47-70 [facility] Work Phone: Potassium [Moles/Vol] 4.1 mmol/L 3.5-5.1 [facility] Work Phone: Protein [Mass/Vol] 7.9 g/dL 6.4-8.2 [facility] Work Phone: Sodium [Moles/Vol] 139 mmol/L 136-145 [facility] Work Phone: Triglyceride [Mass/Vol] 118 mg/dL [facility] Work Phone: Comment on above: The drugs N-Acetylcy steine and Metamizole may falsely depress this assay.Serum Triglycerides Reference Interval Normal <150 mg/dL Borderline high 150 - 199 mg/dL High 200 - 499 mg/dL Very High > or = 500 mg/dL WBC (Bld) [#/Vol] 15.9 10*3/uL 4.4-11.0 [facility] Work Phone: Blood erythrocytes count (nu mber/volume)on 03-06-2022 RBC (Bld) [#/Vol] 4.53 10*6/uL 4.2-5.4 [facility] Work Phone: Blood hemoglobin measurement (mass/volume)on 03-06-2022 Hemoglobin (Bld) [Mass/Vol] 13.7 g/dL 12.0-15.0 [facility] Work Phone: Blood lymphocytes/100 leukoc yteson 03-06-2022 Lymphocytes/100 WBC (Bld) 16.8 % 19-41 [facility] Work Phone: Blood monocytes/100 leukocyt eson 03-06-2022 Monocytes/100 WBC (Bld) 4.5 % 0-10 [facility] Work Phone: Blood platelet mean volumeon 03-06-2022 Platelet mean volume (Bld) [Entitic vol] 11.6 fL 6.2-12.0 [facility] Work Phone: Determination of erythrocyte mean corpuscular volume (MCV)on 03-06-2022 MCV (RBC) [Entitic vol] 93.4 fL 81-99 [facility] Work Phone: Hematocrit Auto (Bld) [Volum e fraction]on 03-06-2022 Hematocrit (Bld) [Volume fraction] 42.3 % 37-47 [facility] Work Phone: Laboratory - Chemistry and C hemistry - challengeon 03-06-2022 ALP [Catalytic activity/Vol] 90 U/L 45-117 [facility] Work Phone: ALT [Catalytic activity/Vol] 26 U/L 13-56 [facility] Work Phone: CO2 [Moles/Vol] 25.0 mmol/L 21.0-32.0 [facility] Work Phone: Globulin (S) [Mass/Vol] 4.7 g/dL 2.2-4.2 [facility] Work Phone: Urea nitrogen/Creatinine [Mass ratio] 14.0 mg/mg 10-20 [facility] Work Phone: Laboratory - Hematology and Cell countson 03-06-2022 Erythrocyte distribution width (RBC) [Entitic vol] 43.2 fL 35.1-43.9 [facility] Work Phone: Erythrocyte distribution width (RBC) [Ratio] 12.6 % 11.6-14.6 [facility] Work Phone: Immature granulocytes/100 WBC (Bld) 0.400 % 0.0-0.9 [facility] Work Phone: Comment on above: IG% - Immature Granu locytes (promyelocytes, myelocytes and metamyelocytes) > 1% indicates that a LEFT SHIFT is Present. MCH (RBC) [Entitic mass] 30.2 pg 27.0-32.0 [facility] Work Phone: Nucleated RBC/100 WBC (Bld) [Ratio] 0 % 0-5 [facility] Work Phone: MCHC Auto (RBC) [Mass/Vol]on 03-06-2022 MCHC (RBC) [Mass/Vol] 32.4 g/dL 32-36 [facility] Work Phone: No Panel Informationon 03-06 Estimated GFR (MDRD) Amer 129 mL/min >60 [facility] Work Phone: Comment on above: GFR Calc Estimated GFR (MDRD) Non-Af Amer 106 mL/min >60 [facility] Work Phone: Comment on above: Non- GFR Calc Thyroid Stimulating Hormone (TSH) 3.39 uIU/mL 0.358-3.74 [facility] Work Phone: Urine Microalbumin/Creatinine Ratio 16.0 mg/g CRE <30 [facility] Work Phone: Platelets bldon 03-06-2022 Platelets (Bld) [#/Vol] 320 10*3/uL 150-450 [facility] Work Phone: Serum or plasma albumin abbey urement (mass/volume)on 03-06-2022 Albumin [Mass/Vol] 3.2 g/dL 3.2-5.0 [facility] Work Phone: Serum or plasma albumin/glob ulin mass ratioon 03-06-2022 Albumin/Globulin [Mass ratio] 0.7 {ratio} 0.9-2.4 [facility] Work Phone: Serum or plasma calcium abbey urement (mass/volume)on 03-06-2022 Calcium [Mass/Vol] 8.8 mg/dL 8.5-10.1 [facility] Work Phone: Serum or plasma cholesterol in HDL measurement (mass/volume)on 03-06-2022 Cholesterol in HDL [Mass/Vol] 48 mg/dL [facility] Work Phone: Comment on above: The drugs N-Acetylcy steine and Metamizole may falsely depress this assay. Reference Range HDL <40 mg/dL Low HDL Cholesterol HDL >or= 60 mg/dL High HDL Cholesterol Serum or plasma cholesterol in VLDL measurement (mass/volume)on 03-06-2022 Cholesterol in VLDL [Mass/Vol] 24 mg/dL 5-40 [facility] Work Phone: Serum or plasma creatinine m easurement (mass/volume)on 03-06-2022 Creatinine [Mass/Vol] 0.64 mg/dL 0.55-1.02 [facility] Work Phone: Comment on above: The validity of the calculated GFR & GFRAA in patients over 70 years has not been determined. Clinical correlation is essential. Serum or plasma low density lipoprotein (LDL) cholesterol measurement (mass/volume)on 03-06-2022 Cholesterol in LDL [Mass/Vol] 141 mg/dL 0-130 [facility] Work Phone: Serum or plasma urea nitroge n measurement (mass/volume)on 03-06-2022 Urea nitrogen [Mass/Vol] 9 mg/dL 7-18 [facility] Work Phone: Thin prep Papanicolaou smear with manual screeningon 03-06-2022 Thin prep Papanicolaou smear with manual screening 24 U/L 15-37 [facility] Work Phone: Thin prep Papanicolaou smear with manual screening 9 5-15 [facility] Work Phone: Thin prep Papanicolaou smear with manual screening 11.6 mg/L NO RANGE EST. [facility] Work Phone: Urine creatinine measurement (mass/volume)on 03-06-2022 Creatinine (U) [Mass/Vol] 72.50 mg/dL NO RANGE EST. [facility] Work Phone: Absolute lymphocyte counton 03-02-2022 Lymphocytes Auto (Unsp spec) [#/Vol] 2.27 10*3/uL 0.83-4.51 [facility] Work Phone: Basophil percentageon 2021 Basophil percentage 0 SEEN /hpf [facility] Work Phone: Basophils/100 WBC (Bld) 0.8 % 0-1 [facility] Work Phone: Bilirubin [Mass/Vol] 0.50 mg/dL 0.20-1.00 [facility] Work Phone: Comment on above: For patients on eltr ombopag therapy, use of Dimension [place] TBIL is not recommended. Chloride [Moles/Vol] 109 mmol/L 98-107 [facility] Work Phone: Eosinophils/100 WBC (Bld) 2.5 % 0-5 [facility] Work Phone: Glucose [Mass/Vol] 103 mg/dL 74-106 [facility] Work Phone: Comment on above: Fasting Glucose resu lt from 100 to 125 mg/dL suggests IMPAIRED HOMEOSTASIS per A.D.A. criteria. Neutrophils (Bld) [#/Vol] 4.4 10*3/uL 2.0-7.7 [facility] Work Phone: Neutrophils/100 WBC (Bld) 58.5 % 47-70 [facility] Work Phone: Potassium [Moles/Vol] 3.7 mmol/L 3.5-5.1 [facility] Work Phone: Protein [Mass/Vol] 8.2 g/dL 6.4-8.2 [facility] Work Phone: Sodium [Moles/Vol] 138 mmol/L 136-145 [facility] Work Phone: WBC (Bld) [#/Vol] 7.5 10*3/uL 4.4-11.0 [facility] Work Phone: Beta hCG serum qualon 2021 Beta HCG ( test) Ql Negative [facility] Work Phone: Bilirubin Test strip Ql (U)o n 03-02-2022 Bilirubin Ql (U) Negative Negative [facility] Work Phone: Blood erythrocytes count (nu mber/volume)on 03-02-2022 RBC (Bld) [#/Vol] 4.32 10*6/uL 4.2-5.4 [facility] Work Phone: Blood hemoglobin measurement (mass/volume)on 03-02-2022 Hemoglobin (Bld) [Mass/Vol] 13.4 g/dL 12.0-15.0 [facility] Work Phone: Blood lymphocytes/100 leukoc yteson 03-02-2022 Lymphocytes/100 WBC (Bld) 30.3 % 19-41 [facility] Work Phone: Blood monocytes/100 leukocyt eson 03-02-2022 Monocytes/100 WBC (Bld) 7.6 % 0-10 [facility] Work Phone: Blood platelet mean volumeon 03-02-2022 Platelet mean volume (Bld) [Entitic vol] 10.5 fL 6.2-12.0 [facility] Work Phone: Determination of erythrocyte mean corpuscular volume (MCV)on 03-02-2022 MCV (RBC) [Entitic vol] 94.0 fL 81-99 [facility] Work Phone: Hematocrit Auto (Bld) [Volum e fraction]on 03-02-2022 Hematocrit (Bld) [Volume fraction] 40.6 % 37-47 [facility] Work Phone: Ketones Test strip Ql (U)on 03-02-2022 Ketones Ql (U) Negative Negative [facility] Work Phone: Laboratory - Chemistry and C hemistry - challengeon 03-02-2022 ALP [Catalytic activity/Vol] 86 U/L 45-117 [facility] Work Phone: ALT [Catalytic activity/Vol] 20 U/L 13-56 [facility] Work Phone: CO2 [Moles/Vol] 22.0 mmol/L 21.0-32.0 [facility] Work Phone: Globulin (S) [Mass/Vol] 5.1 g/dL 2.2-4.2 [facility] Work Phone: Lipase [Catalytic activity/Vol] 64 U/L 73-393 [facility] Work Phone: Urea nitrogen/Creatinine [Mass ratio] 18.5 mg/mg 10-20 [facility] Work Phone: Laboratory - Hematology and Cell countson 03-02-2022 Erythrocyte distribution width (RBC) [Entitic vol] 43.3 fL 35.1-43.9 [facility] Work Phone: Erythrocyte distribution width (RBC) [Ratio] 12.5 % 11.6-14.6 [facility] Work Phone: Immature granulocytes/100 WBC (Bld) 0.300 % 0.0-0.9 [facility] Work Phone: Comment on above: IG% - Immature Granu locytes (promyelocytes, myelocytes and metamyelocytes) > 1% indicates that a LEFT SHIFT is Present. MCH (RBC) [Entitic mass] 31.0 pg 27.0-32.0 [facility] Work Phone: Nucleated RBC/100 WBC (Bld) [Ratio] 0 % 0-5 [facility] Work Phone: MCHC Auto (RBC) [Mass/Vol]on 03-02-2022 MCHC (RBC) [Mass/Vol] 33.0 g/dL 32-36 [facility] Work Phone: Mucus LM Ql (Urine sed)on Mucus Ql (Urine sed) 0 SEEN /hpf [facility] Work Phone: Nitrite Test strip Ql (U)on 03-02-2022 Nitrite Ql (U) Negative Negative [facility] Work Phone: No Panel Informationon 03-02 Estimated Creatinine Clearance Calc 103.39 ml/min [facility] Work Phone: Estimated GFR (MDRD) Amer 127 mL/min >60 [facility] Work Phone: Comment on above: GFR Calc Estimated GFR (MDRD) Non-Af Amer 105 mL/min >60 [facility] Work Phone: Comment on above: Non- GFR Calc Platelets bldon 03-02-2022 Platelets (Bld) [#/Vol] 307 10*3/uL 150-450 [facility] Work Phone: Protein Test strip Ql (U)on 03-02-2022 Protein Ql (U) Negative Negative [facility] Work Phone: Serum or plasma albumin abbey urement (mass/volume)on 03-02-2022 Albumin [Mass/Vol] 3.1 g/dL 3.2-5.0 [facility] Work Phone: Serum or plasma albumin/glob ulin mass ratioon 03-02-2022 Albumin/Globulin [Mass ratio] 0.6 {ratio} 0.9-2.4 [facility] Work Phone: Serum or plasma calcium abbey urement (mass/volume)on 03-02-2022 Calcium [Mass/Vol] 8.8 mg/dL 8.5-10.1 [facility] Work Phone: Serum or plasma creatinine m easurement (mass/volume)on 03-02-2022 Creatinine [Mass/Vol] 0.65 mg/dL 0.55-1.02 [facility] Work Phone: Comment on above: The validity of the calculated GFR & GFRAA in patients over 70 years has not been determined. Clinical correlation is essential. Serum or plasma urea nitroge n measurement (mass/volume)on 03-02-2022 Urea nitrogen [Mass/Vol] 12 mg/dL 7-18 [facility] Work Phone: Squamous epithelial cells de tection in urine sediment by light microscopyon 03-02-2022 Epithelial cells.squamous LM Ql (Urine sed) 0-5 SEEN /hpf [facility] Work Phone: Thin prep Papanicolaou smear with manual screeningon 03-02-2022 Thin prep Papanicolaou smear with manual screening 14 U/L 15-37 [facility] Work Phone: Thin prep Papanicolaou smear with manual screening 7 5-15 [facility] Work Phone: Urine blood detectionon 02-17 RBC Ql (U) Negative Negative [facility] Work Phone: RBC Ql (U) 0 SEEN /hpf [facility] Work Phone: Urine clarityon 03-02-2022 Clarity (U) Clear Clear [facility] Work Phone: Urine color determinationon 03-02-2022 Color (U) Yellow Yellow [facility] Work Phone: Urine glucose detectionon Glucose Ql (U) Normal mg/dl Normal [facility] Work Phone: Urine leukocyte esterase det ection by dipstickon 03-02-2022 Leukocyte esterase Test strip Ql (U) Negative Negative [facility] Work Phone: Urine pHon 03-02-2022 pH (U) 6.5 [pH] [facility] Work Phone: Urine sediment bacteria coun t by microscopy (number/high power field)on 03-02-2022 Bacteria LM.HPF (Urine sed) [#/Area] 0 /[HPF] None Seen [facility] Work Phone: Urine specific gravity measu rementon 03-02-2022 Specific gravity (U) [Rel density] 1.005 [facility] Work Phone: Urobilinogen Auto test strip Ql (U)on 03-02-2022 Urobilinogen Ql (U) Normal mg/dl Normal [facility] Work Phone: DESMOND CULTURE-OTHER ([id number])Ord ered By: Lesli Márquez on 12-28-2008 Bacteria identified Respiratory culture Nom (Unsp spec) Final report Normal [facility]; [facility] Work Phone: Comment on above: PATIENT NOT FASTINGC linical Information: SRC:THRT ADD [id number] PERFORMED BY: [employer] [address] [place] [facility] [id number] Bacteria identified Respiratory culture Nom (Unsp spec) RRF Normal [facility]; [facility] Work Phone: Comment on above: Routine respiratory lisa PATIENT NOT FASTINGC linical Information: SRC:THRT ADD [id number] PERFORMED BY: [employer] [facility] [id number] INFLUENZA IMMUNOASSY DIRECT OPTICAL OBSERV ([id number])Ordered By: Octavia Alejo on 12-28-2008 FLUAV Ag IA Ql (Throat) Negative Normal [facility] centerensive [facility]; [facility] Work Phone: Comment on above: a and b Rapid Strep Test, Office ([phone])on 12-28-2008 S. pyogenes Ag EIA Ql (Throat) Negative Normal [facility]; [facility] Work Phone: LIPID PANEL ([id number])Ordered B y: Lesli Márquez on 11-25-2008 Cholesterol [Mass/Vol] 229 mg/dL Abnormal 100-199 [facility] m[facility]; [facility] Work Phone: Comment on above: PATIENT WAS FASTINGC linical Information: ADD DRAW FEE [id number] ADD J [id number] PERFORMED BY: [employer] [facility] [id number] Cholesterol in HDL [Mass/Vol] 61 mg/dL Normal [facility]; [facility] Work Phone: Comment on above: According to ATP-III Guidelines, HDL-C >59 mg/dL is considered anegative risk factor for CHD. PATIENT WAS FASTINGC linical Information: ADD DRAW FEE [id number] ADD J [id number] PERFORMED BY: Idiro [id number] [facility] [id number] Cholesterol in LDL [Mass/Vol] 141 mg/dL Abnormal 0-99 [facility]; [facility] Work Phone: Comment on above: PATIENT WAS FASTINGC linical Information: ADD DRAW FEE [id number] ADD J [id number] PERFORMED BY: JAYLIN [facility] [id number] [place] [facility] [id number] Cholesterol in LDL/Cholesterol in HDL [Mass ratio] SPRCS Normal [facility]; [facility] Work Phone: Comment on above: If initial LDL-ariadna sterol result is >100 mg/dL, assess forrisk factors. PATIENT WAS FASTINGC linical Information: ADD DRAW FEE [id number] ADD J [id number] PERFORMED BY: JAYLIN [employer] [id number] [address] [place] [facility] [id number] Cholesterol in LDL/Cholesterol in HDL [Mass ratio] 2.3 {ratio_units} Normal 0.0-3.2 [facility]; [facility] Work Phone: Comment on above: PATIENT WAS FASTINGC linical Information: ADD DRAW FEE [id number] ADD J [id number] PERFORMED BY: JAYLIN [employer] [id number] [place] [facility] [id number] Cholesterol in VLDL [Mass/Vol] 27 mg/dL Normal 5-40 [facility]; [facility] Work Phone: Comment on above: PATIENT WAS FASTINGC linical Information: ADD DRAW FEE [id number] ADD J [id number] PERFORMED BY: JAYLIN [employer] Zenent[address] [place] On2 TechnologiesCritical access hospital [id number] Triglyceride [Mass/Vol] 136 mg/dL Normal 0-149 [facility]; [facility] Work Phone: Comment on above: PATIENT WAS FASTINGC linical Information: ADD DRAW FEE [id number] ADD J [id number] PERFORMED BY: [place] [id number] [facility] [id number] T3, FREE (TRIDOTHYRONINE) ([id number])Ordered By: Lesli Márquez on 11-25-2008 Free T3 [Mass/Vol] 2.8 pg/mL Normal 2.3-4.2 [facility]; [facility] Work Phone: Comment on above: PATIENT WAS FASTINGP ERFORMED BY: JAYLIN [facility]6370 [facility] [id number] T4, FREE (THYROXINE) ([id number]) Ordered By: Lesli Márquez on 11-25-2008 Free T4 [Mass/Vol] 1.04 ng/dL Normal 0.61-1.76 [facility]; [facility] Work Phone: Comment on above: PATIENT WAS FASTINGP ERFORMED BY: [facility] [id number] [facility] [id number] TSH ([id number])Ordered By: Nick Márquez on 11-25-2008 TSH Qn 2.662 {uIU/mL} Normal 0.450-4.50 0 [facility]; [facility] Work Phone: Comment on above: PATIENT WAS FASTINGP ERFORMED BY: [facility]6370 [facility] [id number] Vital Signs Date Time Vital Sign Value Performing Clinician Facility 02-11-2025 09:19-0400 Body temperature 98.2 [degF] Dr. Lesli Márquez DO Work Phone: [facility] 02-11-2025 09:19-0400 Body weight 127.[address] Lesli Márquez DO Work Phone: [facility] 02-11-2025 09:19-0400 Diastolic blood pressure 88 mm[Hg] Dr. Lesli Márquez DO Work Phone: [facility] 02-11-2025 09:19-0400 Heart rate 88 /min Dr. Lesli Márquez DO Work Phone: [facility] 02-11-2025 09:19-0400 Respiratory rate 17 /min Dr. Lesli Márquez DO Work Phone: [facility] 02-11-2025 09:19-0400 SaO2% (BldA) [Mass fraction] 98 % Dr. Lesli Márquez DO Work Phone: [facility] 02-11-2025 09:19-0400 Systolic blood pressure 148 mm[Hg] Dr. Lesli Márquez DO Work Phone: [facility] 03-13-2023 07:05-0400 Body height 169.55 cm [facility]; [facility] Work Phone: 03-13-2023 07:05-0400 Body mass index (BMI) [Ratio] 41.54 kg/m2 [facility]; [facility] Work Phone: 03-13-2023 07:05-0400 Body surface area Derived from formula 2.27 m2 [facility]; [facility] Work Phone: 03-13-2023 07:05-0400 Body temperature 97 [degF] [facility]; [facility] Work Phone: 03-13-2023 07:05-0400 Body weight 119.41 kg [facility]; [facility] Work Phone: 03-13-2023 07:05-0400 Diastolic blood pressure 80 mm[Hg] [facility]; [facility] Work Phone: Comment on above: Patient Position: Sitting; Cuff Location : Left Arm; Cuff Size: Standard 03-13-2023 07:05-0400 Heart rate 98 /min [facility]; [facility] Work Phone: Comment on above: Pattern: Regular 03-13-2023 07:05-0400 Respiratory rate 16 /min [facility]; [facility] Work Phone: Comment on above: Pattern: Unlabored 03-13-2023 07:05-0400 SaO2% (BldA) [Mass fraction] 97 % [facility]; [facility] Work Phone: Comment on above: Room air 03-13-2023 07:05-0400 Systolic blood pressure 120 mm[Hg] [facility]; [facility] Work Phone: Comment on above: Patient Position: Sitting; Cuff Location : Left Arm; Cuff Size: Standard 11-14-2022 11:40-0500 Body height 169.[address] [facility]; [facility] Work Phone: 11-14-2022 11:40-0500 Body mass index (BMI) [Ratio] 40.45 kg/m2 [facility]; [facility] Work Phone: 11-14-2022 11:40-0500 Body surface area Derived from formula 2.[address] [facility]; [facility] Work Phone: 11-14-2022 11:40-0500 Body temperature 97.8 [degF] [facility]; [facility] Work Phone: 11-14-2022 11:40-0500 Body weight 116.[address] [facility]; [facility] Work Phone: 11-14-2022 11:40-0500 Diastolic blood pressure 80 mm[Hg] [facility]; [facility] Work Phone: Comment on above: Patient Position: Sitting; Cuff Location : Left Arm; Cuff Size: Standard 11-14-2022 11:40-0500 Heart rate 110 /min [facility]; [facility] Work Phone: Comment on above: Pattern: Regular 11-14-2022 11:40-0500 Respiratory rate 16 /min [facility]; [facility] Work Phone: Comment on above: Pattern: Unlabored 11-14-2022 11:40-0500 SaO2% (BldA) [Mass fraction] 98 % [facility]; [facility] Work Phone: Comment on above: Room air 11-14-2022 11:40-0500 Systolic blood pressure 130 mm[Hg] [facility]; [facility] Work Phone: Comment on above: Patient Position: Sitting; Cuff Location : Left Arm; Cuff Size: Standard 10-09-2022 13:10-0500 Body temperature 96.4 [degF] [facility]; [facility] Work Phone: 10-09-2022 13:10-0500 Diastolic blood pressure 80 mm[Hg] [facility]; [facility] Work Phone: Comment on above: Patient Position: Sitting; Cuff Location : Left Arm; Cuff Size: Standard 10-09-2022 13:10-0500 Heart rate 75 /min [facility]; [facility] Work Phone: Comment on above: Pattern: Regular 10-09-2022 13:10-0500 Respiratory rate 16 /min [facility]; [facility] Work Phone: Comment on above: Pattern: Unlabored 10-09-2022 13:10-0500 SaO2% (BldA) [Mass fraction] 99 % [facility]; [facility] Work Phone: Comment on above: Room air 10-09-2022 13:10-0500 Systolic blood pressure 132 mm[Hg] [facility]; [facility] Work Phone: Comment on above: Patient Position: Sitting; Cuff Location : Left Arm; Cuff Size: Standard 09-11-2022 15:09-0500 Body height 169.55 cm [facility]; [facility] Work Phone: 09-11-2022 15:09-0500 Body mass index (BMI) [Ratio] 40.45 kg/m2 [facility]; [facility] Work Phone: 09-11-2022 15:09-0500 Body surface area Derived from formula 2.[address] [facility]; [facility] Work Phone: 09-11-2022 15:09-0500 Body temperature 96.9 [degF] [facility] Work Phone: 09-11-2022 15:09-0500 Body weight 116.29 [facility]; [facility] Work Phone: 09-11-2022 15:09-0500 Diastolic blood pressure 84 mm[Hg] [facility]; [facility] Work Phone: Comment on above: Patient Position: Sitting; Cuff Location : Left Arm; Cuff Size: Standard 09-11-2022 15:09-0500 Heart rate 99 /min [facility]; [facility] Work Phone: Comment on above: Pattern: Regular 09-11-2022 15:09-0500 Respiratory rate 16 /min [facility]; [facility] Work Phone: Comment on above: Pattern: Unlabored 09-11-2022 15:09-0500 SaO2% (BldA) [Mass fraction] 99 % [facility]; [facility] Work Phone: Comment on above: Room air 09-11-2022 15:09-0500 Systolic blood pressure 124 mm[Hg] [facility]; [facility] Work Phone: Comment on above: Patient Position: Sitting; Cuff Location : Left Arm; Cuff Size: Standard 08-16-2022 08:38-0400 Body height 169.55 cm Saleem Rodriguez [facility]; [facility] Work Phone: 08-16-2022 08:38-0400 Body mass index (BMI) [Ratio] 40.55 kg/m2 Saleem Rodriguez [facility]; [facility] Work Phone: 08-16-2022 08:38-0400 Body surface area Derived from formula 2.24 m2 Saleem Rodriguez [facility]; [facility] Work Phone: 08-16-2022 08:38-0400 Body weight 116.58 kg Saleem Rodriguez LPN [facility]; [facility] Work Phone: 08-16-2022 08:38-0400 Diastolic blood pressure 88 mm[Hg] Saleem Rodriguez LPN [facility]; [facility] Work Phone: Comment on above: Patient Position: Sitting; Cuff Location : Left Arm; Cuff Size: Standard 08-16-2022 08:38-0400 Heart rate 101 /min Saleem Rodriguez LPN [facility]; [facility] Work Phone: Comment on above: Pattern: Regular 08-16-2022 08:38-0400 Respiratory rate 16 /min Saleem Rodriguez LPN [facility]; [facility] Work Phone: Comment on above: Pattern: Unlabored 08-16-2022 08:38-0400 SaO2% (BldA) [Mass fraction] 99 % Saleem Rodriguez LPN [facility]; [facility] Work Phone: Comment on above: Room air 08-16-2022 08:38-0400 Systolic blood pressure 152 mm[Hg] Saleem Rodriguez LPN [facility]; [facility] Work Phone: Comment on above: Patient Position: Sitting; Cuff Location : Left Arm; Cuff Size: Standard 08-14-2022 16:03-0400 Diastolic blood pressure 92 mm[Hg] [facility] Work Phone: 08-14-2022 16:03-0400 Heart rate 100 /min [facility] Work Phone: 08-14-2022 16:03-0400 Respiratory rate 15 /min [facility] Work Phone: 08-14-2022 16:03-0400 SaO2% (BldA) [Mass fraction] 99 % [facility] Work Phone: 08-14-2022 16:03-0400 Systolic blood pressure 163 mm[Hg] [facility] Work Phone: 08-14-2022 13:43-0400 Body height 165.1 cm [facility] Work Phone: 08-14-2022 13:43-0400 Body mass index (BMI) [Ratio] 20.5 kg/m2 [facility] Work Phone: 08-14-2022 13:43-0400 Body temperature 98.3 [degF] [facility] Work Phone: 08-14-2022 13:43-0400 Body weight 56.1 kg [facility] Work Phone: 07-10-2022 16:04-0400 Body height 169.55 cm [facility]; [facility] Work Phone: 07-10-2022 16:04-0400 Body mass index (BMI) [Ratio] 41.68 kg/m2 [facility]; [facility] Work Phone: 07-10-2022 16:04-0400 Body surface area Derived from formula 2.27 m2 [facility]; [facility] Work Phone: 07-10-2022 16:04-0400 Body temperature 97.1 [degF] [facility]; [facility] Work Phone: 07-10-2022 16:04-0400 Body weight 119.81 kg [facility]; [facility] Work Phone: 07-10-2022 16:04-0400 Diastolic blood pressure 80 mm[Hg] [facility]; [facility] Work Phone: Comment on above: Patient Position: Sitting; Cuff Location : Left Arm; Cuff Size: Standard 07-10-2022 16:04-0400 Heart rate 102 /min [facility]; [facility] Work Phone: Comment on above: Pattern: Regular 07-10-2022 16:04-0400 Respiratory rate 16 /min [facility]; [facility] Work Phone: Comment on above: Pattern: Unlabored 07-10-2022 16:04-0400 SaO2% (BldA) [Mass fraction] 97 % Austin Cedillo [facility]; [facility] Work Phone: Comment on above: Room air 07-10-2022 16:04-0400 Systolic blood pressure 130 mm[Hg] Austin Cedillo [facility]; [facility] Work Phone: Comment on above: Patient Position: Sitting; Cuff Location : Left Arm; Cuff Size: Standard 05-16-2022 08:35-0400 Body height 169.55 cm Sofiya Logan [facility]; [facility] Work Phone: 05-16-2022 08:35-0400 Body mass index (BMI) [Ratio] 42.29 kg/m2 Sofiya Logan [facility]; [facility] Work Phone: 05-16-2022 08:35-0400 Body surface area Derived from formula 2.28 m2 Sofiya Logan [facility]; [facility] Work Phone: 05-16-2022 08:35-0400 Body temperature 97.3 [degF] Sofiya Logan [facility]; [facility] Work Phone: Comment on above: Method: Infrared 05-16-2022 08:35-0400 Body weight 121.56 kg Sofiya Logan [facility]; [facility] Work Phone: 05-16-2022 08:35-0400 Diastolic blood pressure 84 mm[Hg] Sofiya Logan [facility]; [facility] Work Phone: Comment on above: Patient Position: Sitting; Cuff Location : Left Arm; Cuff Size: Standard 05-16-2022 08:35-0400 Heart rate 104 /min Sofiya Logan [facility]; [facility] Work Phone: Comment on above: Pattern: Regular 05-16-2022 08:35-0400 Respiratory rate 18 /min Sofiya Logan [facility]; [facility] Work Phone: Comment on above: Pattern: Unlabored 05-16-2022 08:35-0400 SaO2% (BldA) [Mass fraction] 97 % Sofiya Logan [facility]; [facility] Work Phone: Comment on above: Room air 05-16-2022 08:35-0400 Systolic blood pressure 128 mm[Hg] Sofiya Logan [facility]; [facility] Work Phone: Comment on above: Patient Position: Sitting; Cuff Location : Left Arm; Cuff Size: Standard 03-28-2022 10:50-0400 Body height 169.55 cm Lesli Darinel DO Work Phone: [facility]; [facility] Work Phone: Comment on above: R arm 168/110 - adn left arm 03-28-2022 10:50-0400 Body mass index (BMI) [Ratio] 43.24 kg/m2 Lesli Darinel DO Work Phone: [facility]; [facility] Work Phone: Comment on above: R arm 168/110 - adn left arm 03-28-2022 10:50-0400 Body surface area Derived from formula 2.31 m2 Lesli Darinel DO Work Phone: [facility]; [facility] Work Phone: Comment on above: R arm 168/110 - adn left arm /03-28-2022 10:50-0400 Body temperature 97.3 [degF] Lesli Darinel DO Work Phone: [facility]; [facility] Work Phone: Comment on above: Method: Infrared R arm 168/110 - adn left arm /03-28-2022 10:50-0400 Body weight 124.29 kg Lesli Darinel DO Work Phone: [facility]; [facility] Work Phone: Comment on above: R arm 168/110 - adn left arm /03-28-2022 10:50-0400 Diastolic blood pressure 110 mm[Hg] Lesli Darinel DO Work Phone: [facility]; [facility] Work Phone: Comment on above: Patient Position: Sitting; Cuff Location : Left Arm; Cuff Size: Standard R arm 168/110 - adn left arm /03-28-2022 10:50-0400 Heart rate 86 /min Lesli Darinel DO Work Phone: [facility]; [facility] Work Phone: Comment on above: Pattern: Regular R arm 168/110 - adn left arm /03-28-2022 10:50-0400 Respiratory rate 18 /min Lesli Darinel DO Work Phone: [facility]; [facility] Work Phone: Comment on above: Pattern: Unlabored R arm 168/110 - adn left arm /03-28-2022 10:50-0400 SaO2% (BldA) [Mass fraction] 98 % Lesli Darinel DO Work Phone: [facility]; [facility] Work Phone: Comment on above: Room air R arm 168/110 - adn left arm /03-28-2022 10:50-0400 Systolic blood pressure 168 mm[Hg] Lesli Darinel DO Work Phone: [facility]; [facility] Work Phone: Comment on above: Patient Position: Sitting; Cuff Location : Left Arm; Cuff Size: Standard R arm 168/110 - adn left arm /03-11-2022 14:02-0400 Body height 169.55 cm Alycia Maldonado TECHNICAL SERVICES ASSISTANT [facility]; [facility] Work Phone: 03-11-2022 14:02-0400 Body mass index (BMI) [Ratio] 43.71 kg/m2 Alycia Maldonado TECHNICAL SERVICES ASSISTANT [facility]; [facility] Work Phone: 03-11-2022 14:02-0400 Body surface area Derived from formula 2.32 m2 Alycia Maldonado TECHNICAL SERVICES ASSISTANT [facility]; [facility] Work Phone: 03-11-2022 14:02-0400 Body temperature 97.1 [degF] Alycia Gunnarrb TECHNICAL SERVICES ASSISTANT [facility]; [facility] Work Phone: 03-11-2022 14:02-0400 Body weight 125.65 kg Alycia Maldonado TECHNICAL SERVICES ASSISTANT [facility]; [facility] Work Phone: 03-11-2022 14:02-0400 Diastolic blood pressure 88 mm[Hg] Alycia Slarb TECHNICAL SERVICES ASSISTANT [facility]; [facility] Work Phone: Comment on above: Patient Position: Sitting; Cuff Location : Left Arm; Cuff Size: Standard 03-11-2022 14:02-0400 Heart rate 126 /min Alycia Gunnarrb TECHNICAL SERVICES ASSISTANT [facility]; [facility] Work Phone: Comment on above: Pattern: Regular 03-11-2022 14:02-0400 Respiratory rate 16 /min Alycia Maherrb TECHNICAL SERVICES ASSISTANT [facility]; [facility] Work Phone: Comment on above: Pattern: Unlabored 03-11-2022 14:02-0400 SaO2% (BldA) [Mass fraction] 98 % Alycia Gunnarrb TECHNICAL SERVICES ASSISTANT [facility]; [facility] Work Phone: Comment on above: Room air 03-11-2022 14:02-0400 Systolic blood pressure 142 mm[Hg] Alycia Slarb TECHNICAL SERVICES ASSISTANT [facility]; [facility] Work Phone: Comment on above: Patient Position: Sitting; Cuff Location : Left Arm; Cuff Size: Standard 03-02-2022 09:24-0400 Diastolic blood pressure 96 mm[Hg] [facility] Work Phone: 03-02-2022 09:24-0400 Heart rate 83 /min [facility] Work Phone: 03-02-2022 09:24-0400 Respiratory rate 18 /min [facility] Work Phone: 03-02-2022 09:24-0400 SaO2% (BldA) [Mass fraction] 98 % [facility] Work Phone: 03-02-2022 09:24-040 Systolic blood pressure 154 mm[Hg] [facility] Work Phone: 03-02-2022 07:26-040 Body height 167.64 cm [facility] Work Phone: 03-02-2022 07:26-0400 Body mass index (BMI) [Ratio] 44.4 kg/m2 [facility] Work Phone: 03-02-2022 07:-040 Body temperature 97.9 [degF] [facility] Work Phone: 03-02-2022 07:26-0400 Body weight 124.7 kg [facility] Work Phone: 08-08-2010 12:15-0400 Body height 169.55 cm Octavia Alejo RN [facility]; [facility] Work Phone: 08-08-2010 12:15-0400 Body mass index (BMI) [Ratio] 39.47 kg/m2 Octavia Alejo RN [facility]; [facility] Work Phone: 08-08-2010 12:15-0400 Body surface area Derived from formula 2.22 m2 Octavia Alejo RN [facility]; [facility] Work Phone: 08-08-2010 12:15-0400 Body weight 113.46 kg Octavia Alejo RN [facility]; [facility] Work Phone: 08-08-2010 12:15-0400 Diastolic blood pressure 82 mm[Hg] Octavia Alejo RN [facility]; [facility] Work Phone: Comment on above: Patient Position: Sitting; Cuff Location : Left Arm; Cuff Size: Large 08-08-2010 12:15-0400 Heart rate 68 /min Octavia Cho [facility]; [facility] Work Phone: Comment on above: Pattern: Regular 08-08-2010 12:15-0400 Respiratory rate 20 /min Octavia Alejo RN [facility]; [facility] Work Phone: Comment on above: Pattern: Unlabored 08-08-2010 12:15-0400 Systolic blood pressure 128 mm[Hg] Octavia Alejo RN [facility]; [facility] Work Phone: Comment on above: Patient Position: Sitting; Cuff Location : Left Arm; Cuff Size: Large 05-24-2010 08:24-0400 Body height 169.55 cm Octavia Alejo RN [facility]; [facility] Work Phone: 05-24-2010 08:24-0400 Body mass index (BMI) [Ratio] 39.47 kg/m2 Octavia Alejo RN [facility]; [facility] Work Phone: 05-24-2010 08:24-0400 Body surface area Derived from formula 2.22 m2 Octavia Alejo RN [facility]; [facility] Work Phone: 05-24-2010 08:24-0400 Body temperature 97.7 [degF] Octavia Alejo RN [facility]; [facility] Work Phone: Comment on above: Method: Oral 05-24-2010 08:24-0400 Body weight 113.46 kg Octavia Alejo RN [facility]; [facility] Work Phone: 05-24-2010 08:24-0400 Diastolic blood pressure 82 mm[Hg] Octavia Alejo RN [facility]; [facility] Work Phone: Comment on above: Patient Position: Sitting; Cuff Location : Left Arm; Cuff Size: Large 05-24-2010 08:24-0400 Heart rate 64 /min Octavia Alejo RN [facility]; [facility] Work Phone: Comment on above: Pattern: Regular 05-24-2010 08:24-0400 Respiratory rate 20 /min Octavia Alejo RN [facility]; [facility] Work Phone: Comment on above: Pattern: Unlabored 05-24-2010 08:24-0400 Systolic blood pressure 136 mm[Hg] Octavia Alejo RN [facility]; [facility] Work Phone: Comment on above: Patient Position: Sitting; Cuff Location : Left Arm; Cuff Size: Large 07-20-2009 09:07-0400 Body height 169.55 cm Octavia Alejo RN [facility]; [facility] Work Phone: 07-20-2009 09:07-0400 Body mass index (BMI) [Ratio] 39.14 kg/m2 Octavia Alejo RN [facility]; [facility] Work Phone: 07-20-2009 09:07-0400 Body surface area Derived from formula 2.21 m2 Octavia Alejo RN [facility]; [facility] Work Phone: 07-20-2009 09:07-0400 Body weight 112.52 kg Octavia Alejo RN [facility]; [facility] Work Phone: 07-20-2009 09:07-0400 Diastolic blood pressure 78 mm[Hg] Octavia Alejo RN [facility]; [facility] Work Phone: Comment on above: Patient Position: Sitting; Cuff Location : Left Arm; Cuff Size: Large 07-20-2009 09:07-0400 Head Occipital-frontal circumference 0 cm Octavia Alejo RN [facility]; [facility] Work Phone: 07-20-2009 09:07-0400 Heart rate 72 /min Octavia Alejo RN [facility]; [facility] Work Phone: Comment on above: Pattern: Regular 07-20-2009 09:07-0400 Respiratory rate 20 /min Octavia Alejo RN [facility]; [facility] Work Phone: Comment on above: Pattern: Unlabored 07-20-2009 09:07-0400 Systolic blood pressure 124 mm[Hg] Octavia Alejo RN [facility]; [facility] Work Phone: Comment on above: Patient Position: Sitting; Cuff Location : Left Arm; Cuff Size: Large 01-11-2009 09:01-0400 Body height 169.55 cm Octavia Alejo RN [facility]; [facility] Work Phone: 01-11-2009 09:01-0400 Body mass index (BMI) [Ratio] 38.19 kg/m2 Octavia Alejo RN [facility]; [facility] Work Phone: 01-11-2009 09:01-0400 Body surface area Derived from formula 2.19 m2 Octavia Alejo RN [facility]; [facility] Work Phone: 01-11-2009 09:01-0400 Body weight 109.77 kg Octavia Alejo RN [facility]; [facility] Work Phone: 01-11-2009 09:01-0400 Diastolic blood pressure 80 mm[Hg] Octavia Alejo RN [facility]; [facility] Work Phone: Comment on above: Patient Position: Sitting; Cuff Location : Left Arm; Cuff Size: Large 01-11-2009 09:01-0400 Head Occipital-frontal circumference 0 cm Octavia Alejo RN [facility]; [facility] Work Phone: 01-11-2009 09:01-0400 Heart rate 72 /min Octavia Alejo RN [facility]; [facility] Work Phone: Comment on above: Pattern: Regular 01-11-2009 09:01-0400 Respiratory rate 20 /min Octavia Alejo RN [facility]; [facility] Work Phone: Comment on above: Pattern: Unlabored 01-11-2009 09:01-0400 Systolic blood pressure 124 mm[Hg] Octavia Alejo RN [facility]; [facility] Work Phone: Comment on above: Patient Position: Sitting; Cuff Location : Left Arm; Cuff Size: Large 12-28-2008 09:41-0400 Body height 169.55 cm Octavia Alejo RN [facility]; [facility] Work Phone: 12-28-2008 09:41-0400 Body mass index (BMI) [Ratio] 38.11 kg/m2 Octavia Alejo RN [facility]; [facility] Work Phone: 12-28-2008 09:41-0400 Body surface area Derived from formula 2.19 m2 Octavia Alejo RN [facility]; [facility] Work Phone: 12-28-2008 09:41-0400 Body temperature 102.6 [degF] Octavia Alejo RN [facility]; [facility] Medicine Work Phone: Comment on above: Method: Oral 12-28-2008 09:41-0400 Body weight 109.54 kg Octavia Alejo RN [facility]; [facility] Work Phone: 12-28-2008 09:41-0400 Diastolic blood pressure 80 mm[Hg] Octavia Alejo RN [facility]; [facility] Work Phone: Comment on above: Patient Position: Sitting; Cuff Location : Left Arm; Cuff Size: Large 12-28-2008 09:41-0400 Head Occipital-frontal circumference 0 cm Octavia Alejo RN [facility]; [facility] Work Phone: 12-28-2008 09:41-0400 Heart rate 80 /min Octavia Alejo RN [facility]; [facility] Work Phone: Comment on above: Pattern: Regular 12-28-2008 09:41-0400 Respiratory rate 20 /min Octavia Alejo RN [facility]; [facility] Work Phone: Comment on above: Pattern: Unlabored 12-28-2008 09:41-0400 Systolic blood pressure 128 mm[Hg] Octavia Alejo RN [facility]; [facility] Work Phone: Comment on above: Patient Position: Sitting; Cuff Location : Left Arm; Cuff Size: Large 11-30-2008 09:28-0500 Body height 169.55 cm Octavia Alejo RN [facility]; [facility] Work Phone: 11-30-2008 09:28-0500 Body mass index (BMI) [Ratio] 38.11 kg/m2 Octavia Alejo RN [facility]; [facility] Work Phone: 11-30-2008 09:28-0500 Body surface area Derived from formula 2.19 m2 Octavia Alejo RN [facility]; [facility] Work Phone: 11-30-2008 09:28-0500 Body weight 109.54 kg Octavia Alejo RN [facility]; [facility] Work Phone: 11-30-2008 09:28-0500 Diastolic blood pressure 84 mm[Hg] Octavia Alejo RN [facility]; [facility] Work Phone: Comment on above: Patient Position: Sitting; Cuff Location : Left Arm; Cuff Size: Large 11-30-2008 09:28-0500 Head Occipital-frontal circumference 0 cm Octavia Alejo RN [facility]; [facility] Work Phone: 11-30-2008 09:28-0500 Heart rate 64 /min Octavia Alejo RN [facility]; [facility] Work Phone: Comment on above: Pattern: Regular 11-30-2008 09:28-0500 Respiratory rate 20 /min Octavia Alejo RN [facility]; [facility] Work Phone: Comment on above: Pattern: Unlabored 11-30-2008 09:28-0500 Systolic blood pressure 128 mm[Hg] Octavia Alejo RN [facility]; [facility] Work Phone: Comment on above: Patient Position: Sitting; Cuff Location : Left Arm; Cuff Size: Large 07-27-2008 10:170400 Body height 169.55 cm Octavia Alejo RN [facility]; [facility] Work Phone: 07-27-2008 10:17-0400 Body mass index (BMI) [Ratio] 37.14 kg/m2 Octavia Alejo RN [facility]; [facility] Work Phone: 07-27-2008 10:17-0400 Body surface area Derived from formula 2.16 m2 Octavia Alejo RN [facility]; [facility] Work Phone: 07-27-2008 10:17-0400 Body weight 106.77 kg Octavia Alejo RN [facility]; [facility] Work Phone: 07-27-2008 10:17-0400 Diastolic blood pressure 80 mm[Hg] Octavia Alejo RN [facility]; [facility] Work Phone: Comment on above: Patient Position: Sitting; Cuff Location : Left Arm; Cuff Size: Large 07-27-2008 10:17-0400 Head Occipital-frontal circumference 0 cm Octavia Alejo RN [facility]; [facility] Work Phone: 07-27-2008 10:17-0400 Heart rate 88 /min Octavia Alejo RN [facility]; [facility] Work Phone: Comment on above: Pattern: Regular 07-27-2008 10:17-0400 Respiratory rate 20 /min Octavia Alejo RN [facility]; [facility] Work Phone: Comment on above: Pattern: Unlabored 07-27-2008 10:17-0400 Systolic blood pressure 122 mm[Hg] Octavia Alejo RN [facility]; [facility] Work Phone: Comment on above: Patient Position: Sitting; Cuff Location : Left Arm; Cuff Size: Large Encounters Encounter Date Encounter Type Care Provider Facility Start: 04-12-2025 ambulatory Lesli Márquez Facilit y:[facility] Start: 03-19-2025 End: 03-19-[address] Lesli Márquez DO Work Phone: [facility] Work Phone: Start: 03-19-2025 End: 03-19-[address] Lesli Márquez DO -Laboratory Work Phone: Start: 03-19-2025 End: 03-19-2025 ambulatory Lesli Márquez Facility:[facility] Start: 02-11-2025 End: 02-11-2025 Patient encounter procedure [facility] MATTHEWS -[facility] Work Phone: Start: 02-11-2025 End: 02-11-2025 ambulatory Lesli Márquez [place] [place]: 02-10-2025 End: 02-10-[address] Lesli Márquez DO Work Phone: [facility] Work Phone: Start: 02-10-2025 End: 02-10-[address] Lesli Márquez DO -Cat Scan, [facility] Work Phone: Start: 02-10-2025 End: 02-10-2025 ambulatory Lesli Márquez Facility:[facility] Start: 12-25-2024 End: 12-25-2024 Subsequent hospital visit by physician Harinder Lloyd [facility] Comment on above: Other abnormal gluco se Start: 12-25-2024 End: 12-25-2024 ambulatory LESLI MÁRQUEZ [facility] Start: 11-06-2024 End: 11-06-[address] Lesli Márquez DO -Laboratory Work Phone: Start: 11-06-2024 End: 11-06-2024 ambulatory Lesli Márquez Facility:[facility] Start: 07-03-2024 End: 07-03-2024 ambulatory Lesli Márquez Facility:[facility] Start: 04-28-2024 Encounter for other preprocedural examination [facility] Start: 04-15-2024 End: 04-15-2024 ambulatory [facility] Facility:[facility] Start: 10-10-2023 End: 10-10-2023 ambulatory [facility] Work Phone: Start: 10-10-2023 End: 10-10-2023 Patient encounter procedure [facility] Work Phone: Start: 10-08-2023 End: 10-08-2023 ambulatory [facility] Work Phone: Start: 10-08-2023 End: 10-08-2023 Patient encounter procedure [facility]-Outpatient Breast Imaging Work Phone: Start: 09-23-2023 End: 09-23-2023 Emergency department patient visit [facility] Start: 04-08-2023 End: 04-08-2023 ambulatory [facility] Work Phone: Start: 04-08-2023 End: 04-08-2023 Patient encounter procedure [facility]-Outpatient Bone Densitometry Start: 03-13-2023 End: 03-13-2023 Office outpatient visit 25 minutes Lesli Márquez DO Work Phone: [facility] Start: 11-14-2022 End: 11-14-2022 Office outpatient visit 10 minutes Lesli Márquez DO Work Phone: [facility] Start: 11-14-2022 ambulatory Lesli Darinel DO [facility] Start: 10-09-2022 End: 10-09-2022 Office outpatient visit 10 minutes Lesli Darinel DO Work Phone: [facility] Start: 09-11-2022 End: 09-11-2022 Office outpatient visit 25 minutes Lesli Darinel DO Work Phone: [facility] Start: 08-16-2022 End: 08-16-2022 Office outpatient visit 15 minutes Lesli Darinel DO Work Phone: [facility] Start: 08-14-2022 End: 08-14-2022 Emergency department patient visit [facility]-Emergency Department Start: 07-10-2022 End: 07-10-2022 Office outpatient visit 15 minutes Lesli Darinel DO Work Phone: [facility] Start: 05-16-2022 End: 05-16-2022 Office outpatient visit 10 minutes Lesli Darinel DO Work Phone: [facility] Start: 05-08-2022 End: 05-08-2022 Patient encounter procedure [facility]-Cardiovascular Services Start: 05-08-2022 End: 05-11-2022 Office outpatient visit 5 minutes Lesli Darinel DO Work Phone: [facility] Start: 03-29-2022 End: 03-29-2022 Office outpatient visit 5 minutes Lesli Darinel DO Work Phone: [facility] Start: 03-28-2022 End: 03-28-2022 Office outpatient visit 25 minutes Lesli Darinel DO Work Phone: [facility] Start: 03-22-2022 End: 03-22-2022 Patient encounter procedure [facility] Start: 03-11-2022 End: 03-11-2022 Office outpatient visit 25 minutes Lesli Darinel DO Work Phone: [facility] Start: 03-11-2022 Review Lesli Fearo n DO Work Phone: [facility] Start: 03-08-2022 End: 03-08-2022 Phone Encounter Lesli Darinel DO Work Phone: [facility] Start: 03-06-2022 End: 03-06-2022 Patient encounter procedure [facility]-Laboratory Start: 03-05-2022 End: 03-05-2022 Annotation/Addendum Lesli Darinel DO Work Phone: [facility] Start: 03-02-2022 End: 03-02-2022 Emergency department patient visit [facility]-Emergency Department Start: 08-09-2010 End: 08-09-2010 Annotation/Addendum Lesli Darinel DO Work Phone: [facility] Start: 08-08-2010 End: 08-08-2010 Patient encounter procedure Lesli Darinel DO Work Phone: [facility] Start: 05-24-2010 End: 05-24-2010 Patient encounter procedure Lesli Darinel DO Work Phone: [facility] Start: 07-20-2009 End: 07-20-2009 Patient encounter procedure Lesli Darinel DO Work Phone: [facility] Start: 01-11-2009 End: 01-11-2009 Patient encounter procedure Lesli Darinel DO Work Phone: [facility] Start: 12-28-2008 End: 12-28-2008 Patient encounter procedure Lesli Darinel DO Work Phone: [facility] Start: 11-30-2008 End: 11-30-2008 Office outpatient visit 10 minutes Lesli Darinel DO Work Phone: [facility] Start: 07-28-2008 End: 07-28-2008 Historical Summary Lesli Darinel DO Work Phone: [facility] Start: 07-27-2008 End: 07-27-2008 Historical Summary Lesli Darinel DO Work Phone: [facility] Start: 07-27-2008 End: 07-27-2008 Patient encounter procedure Lesli Darinel DO Work Phone: [facility] Procedures Date Procedure Procedure Detail Performing Clinician Start: 03-19-[address] Nick Márquez DO Work Phone: Start: 03-19-2025 Albumin/Globulin ratio Dr. Lesli Márquez DO Work Phone: Start: 03-19-[address] fraction Dr. Lesli Márquez DO Work Phone: Start: 03-19-[address] Lesli Márquez DO Work Phone: Start: 03-19-2025 Serum inorganic phosphate measurement Dr. Lesli Márquez DO Work Phone: Start: 03-19-2025 Urine lambda light c bobby measurement Dr. Lesli Márquez DO Work Phone: Start: 03-19-2025 Urnls dip stick/tabl et reagent auto microscopy Dr. Lesli Márquez DO Work Phone: Start: 02-10-2025 CT of abdomen with contrast Dr. Lesli Márquez DO Work Phone: Start: 10-10-2023 Ultrasonography of breast Start: 10-08-2023 Screening mammography Start: 04-08-2023 End: 04-15-2023 Dexa Bone Density Study Procedure Note: See Note; NOTES: [facility] Imaging Services [address] [place] [id number] Dexa Bone Density Study MR#: [id number] Acct: [id number] Name: ALIX PALMER Rep #: [id number] : 1975 F 47 From: Hudson olmos MD PCP: Dr. Lesli Márquez, DO Status: DEP CLI Study: Dexa Bone Density Study Date of Exam: 04/08/23 Exam# [id number] Ordering Dr: Lesli Márquez DO STUDY: DUAL ENERGY X-RAY ABSORPTIOMETRY / DXA REASON FOR EXAM: Female, 47 years old. 733.00OsteoporosisBONE DENSITY REASON FOR EXAM TECHNIQUE: Bone Mineral Density (BMD) measurements of lumbar spine and bilateral hips were obtained. COMPARISON: None. FINDINGS: Lumbar Spine (L1-L4): g/cm2 (1.252) / T-score (2.5) / Z-score (2.8) Findings are suggestive of normal bone density with a low fracture risk. Left Femur Total: g/cm2 (1.205) / T-score (2.2) / Z-score (2.5) Left Femoral Neck: g/cm2 (1.035) / T-score (1.7) / Z-score (2.1) Right Femur Total: g/cm2 (1.252) / T-score (2.5) / Z-score (2.8) Right Femoral Neck: g/cm2 (1.109) / T-score (2.3) / Z-score (2.8) BD/Dexa Bone Density Study IMPRESSION: The patient is considered normal as outlined below according to World Abiel Organization (WHO) criteria with a low fracture risk. Reference Information: The T-score is the number of standard deviations above or below the standard which is normal for young adults at their peak bone mineral density. The World Health Organization (WHO) interprets the T-scores as follows: Above -1 Normal bone density Between -1 and -2.5 Osteopenia Equal to / or below -2.5 Osteoporosis As a practical clinical guideline, osteopenia may be graded as follows: Mild -1 through -1.5 Moderate -1.6 through -2.0 Severe -2.1 through -2.4 The Z-score is the number of standard deviations above or below age-matched controls. A Z-score of less than -1.5 would be considered abnormal. References: 1. NIH Osteoporosis and Related Bone Diseases www osteo.org 2. International Society for Clinical Densitometry www iscd.org 3. National Osteoporosis Foundation www nof.org Electronically Signed: Hudson Calderon MD at 12:57 EDT , CC: Dr. Lesli Márquez DO [employer]: Signed Lesli Márquez DO Work Phone: Start: 08-14-2022 End: 08-15-2022 Emergency Department Summary Procedure Note: See Note; NOTES: [facility] Medical Records Department [address] [place] [address] Emergency Department Summary 08/14/22 MR#: [id number] Acct: [id number] Name: ALIX PALMER Rep #: [id number] : 1975 46 From: Lionel Garcia MD PCP: Dr. Lesli Márquez DO Status:DEP ER Location: ED HPI History of Present Illness Chief Complaint: Nausea/Vomiting Narrative Narrative: Had a sudden right-sided nosebleed today, she went to the nurse at her work, her blood pressure was over 200 on multiple checks. In 1 point she was near syncopal when she stood up, she felt nauseated, and very lightheaded. She had no focal neurologic symptoms, headache, chest discomfort, dyspnea, vomiting. She states the bleeding was significant, and despite holding pressure and leaning forward it took a long time for her to eventually stop but it did. She is on no antiplatelet or anticoagulant medications. She does not take any medication for blood pressure states it is usually good but she did have a problem in the past in which she had a subclavian artery ultrasound on the left because of asymmetric blood pressures. She states it was unremarkable. She denies any injury to her nose to explain the nosebleed. She has had them before because of dry winter air. She has taken no jrit-inv-gjsdpsb medications recently except for a half dose of Tylenol PM last night to help her get to sleep. No decongestants. [facility] Medical History COVID High blood pressure Nasal bleeding Home Medications lisinopril 10 mg tablet 10 mg PO DAILY #30 tabs 08/14/22 [Rx Last Taken Unknown] multivitamin 1 tab PO DAILY 08/14/22 [History Last Taken Unknown] Allergy/AdvReac Type Severity Reaction Status Date / Time ketorolac [From Toradol] Allergy Other Verified 08/14/22 13:43 Family History Mother Hypertension Father Hypertension Heart disease HLD (hyperlipidemia) Sister Hypertension Grandfather Hypertension Heart disease HLD (hyperlipidemia) Social History Smoking Status: Never smoker ROS ROS ED Constitutional Constitutional ED: Denies chills or fever(s) Eyes Eyes: Denies change in vision or diplopia ENT ENT ED: Reports epistaxis; Denies rhinorrhea or sore throat Cardiovascular Cardiovascular: Reports lightheadedness; Denies chest pain or palpitations Respiratory/Chest Respiratory/Chest: Denies cough or dyspnea Gastrointestinal Gastrointestinal: Denies abdominal pain, diarrhea, nausea or vomiting Genitourinary Genitourinary ED: Denies dysuria or hematuria Musculoskeletal Musculoskeletal: Denies back pain or neck pain Integumentary Denies abscess or rash Neurologic Neurologic: Reports paresthesias RUE and LUE and other Details: Paresthesias resolved now ; Denies headache(s) or weakness Psychiatric Psychiatric: Denies anxiety or suicidal thoughts EXAM Physical Exam Const Vital Signs: 08/14/22 13:43 08/14/22 13:48 08/14/22 15:00 Temperature 98.3 F Temperature Source Oral Pulse Rate 111 H 101 H Respiratory Rate 16 15 Respiratory Effort Normal Non-Labored Respiratory Pattern Normal Blood Pressure 173/91 H 164/93 H Blood Pressure Mean 118 116 Pulse Ox 98 100 Oxygen Delivery Method Room Air Room Air 08/14/22 16:03 Temperature Temperature Source Pulse Rate 100 Respiratory Rate 15 Respiratory Effort Respiratory Pattern Blood Pressure 163/92 H Blood Pressure Mean Pulse Ox 99 Oxygen Delivery Method Positive well nourished and well developed General Appearance ED: well developed and NAD HEENT Reports moist mucous membranes HEENT Narrative: Some mild irritation on the septum of the right naris, no perforation, no clot or active bleeding anywhere. Left side is clear. Posterior oropharynx is clear no blood. normocephalic and atraumatic Eyes PERRL and EOMs intact bilaterally Neck full ROM and supple Resp normal respiratory effort and clear to auscultation bilaterally Cardio regular rate, regular rhythm and no murmurs GI non-tender and non-distended Auscultation: normoactive bowel sounds Palpation: soft Back/Spine no CVA tenderness General Back: other FROM Extremity normal to inspection General Extremety ED: Negative for edema, pulses abnormal or tenderness General Extremity: Negative for edema or pulses abnormal Neuro oriented x3, CN's II-XII intact bilaterally and no sensory deficits noted Sensorium / Orientation: awake and alert Motor Exam: strength 5/5 throughout Skin no rashes or lesions noted and no wounds MDM MDM MDM Narrative Medical decision making narrative: I checked the blood pressure on both arms, the patient was feeling better at that time. Initially her heart rate was around 111 when she got here, during my evaluation she was in the 90s. Left arm 169/87, the right side is 156/102. I do not think the systolics are different enough to warrant CT angiography of blood vessels or anything like that, I think her blood pressure truly was elevated but etiology is unknown, and I think that is probably what caused her nosebleed. She is not currently bleeding, we will need to adjust any medications to keep her from having recurrent bleeding, nor do I think she needs a nasal packing right now. Given this level of blood pressure I think she can go home, I will give her a clonidine here prior to discharge, she is no longer orthostatic and able to get up without feeling like she is going to pass out, her blood counts are good, I will put her on something before she sees her doctor at her neck scheduled visit which is in about 1 month. I recommend checking her blood pressure at least a couple times a week in the meantime as long as she is feeling okay. We discussed reasons to return, we gave her appropriate instructions on how to take her recurrent bleeding at home prior to coming back to the ER, she is comfortable with overall plan. Lab Data Attestation: I reviewed the patient's lab results. Labs: Laboratory Results - last 24 hr 08/14/22 08/14/22 08/14/22 14:07 14:07 14:58 WBC 9.9 RBC 4.33 Hgb 13.3 Hct 39.3 MCV 90.8 MCH 30.7 MCHC 33.8 RDW Std Deviation 41.2 RDW Coeff of Diane 12.4 Plt Count 309 MPV 11.1 Immature Gran % (Auto) 0.200 Neut % (Auto) 61.8 Lymph % (Auto) 28.1 [place] % (Auto) 8.1 Eos % (Auto) 1.3 Baso % (Auto) 0.5 Absolute Neuts (auto) 6.1 Absolute Lymphs (auto) 2.79 Nucleated RBC % 0 Sodium 139 Potassium 3.4 L Chloride 108 H Carbon Dioxide 25.0 Anion Gap 6 BUN 11 Creatinine 0.61 Estim Creat Clear Calc 104.25 Est GFR (MDRD) Af Amer 136 Est GFR (MDRD) Non-Af 113 BUN/Creatinine Ratio 18.0 Glucose 115 H Calcium 9.3 Urine Color Yellow Urine Clarity Sl. Cloudy Urine pH 6.0 Ur Specific Newcomb 1.010 Urine Protein Negative Urine Glucose (UA) Normal Urine Ketones Negative Urine Occult Blood Negative Urine Nitrite Negative Urine Bilirubin Negative Urine Urobilinogen Normal Ur Leukocyte Esterase 25 H Urine RBC 0 SEEN Urine WBC 0-5 SEEN Ur Squamous Epith Cells 0-5 SEEN Urine Bacteria 1+ Urine Mucus 0 SEEN Radiography Diagnostic Testing: Clinical Impression(s) from Imaging Studies Chest X-Ray 08/14/22 13:46 IMPRESSION: Normal x-ray examination of the chest. Electronically Signed: Hudson Calderon MD at 14:12 EDT , Rhythm Strip Rhythm Strip: Sinus Rhythm Rate: 100 Ectopy: None EKG Initial EKG: Attestation: I personally reviewed and interpreted this EKG as follows: Interpretation: No Acute Injury Pattern and Sinus Tachycardia Discharge Plan Triage Chief Complaint: Nausea/Vomiting Other Complaint: Hypertension Nosebleed ED Provider: Lionel Garcia Dx/Rx/DC Orders Clinical Impression: Acute anterior epistaxis, Episode of hypertension Instructions: Controlling High Blood Pressure, Blood Pressure Check Steps Prescriptions: New lisinopril 10 mg tablet 10 mg PO DAILY Qty: 30 0RF No Action multivitamin Tablet 1 tab PO DAILY Primary Care Provider: Lesli Márquez Referrals: Lesli Márquez DO [Primary Care Provider] - Keep Bety appointment (Or sooner if able) Activity Restrictions/Additional Instructions: Get any mzuh-tzy-fzmvhio nasal decongestant spray containing oxymetazoline or phenylephrine. For moderate-severe nosebleed: 1 - gather supplies: nasal decongestant spray (above), cotton ball, box of tissues, garbage can, old towel that you can wrap around your chest/neck (to catch blood) 2 - soak a cotton ball in the nasal spray 3 - blow your nose, get all blood and clots out, keep chin down to prevent blood from going back into throat and forming clots 4 - after blowing the last time, quickly spray 2 sprays of the nasal spray into the affected side and sniff it back, immediately followed by twisting the soaked cotton ball into the front of your nose and then hold pressure with your fingers. 5 - if bleeding controlled, leave cotton ball in place for at least 20 min before checking to see if the bleeding is controlled by removing the cotton ball. If not able to control bleeding, always welcome to return to the ER for help. With regards to her blood pressure, try to check it a couple times a week if you are able. Disposition Disposition: Home, Self Care Discharge Date/Time: 08/14/22 16:27 What to do if you have Problems For any increased pain, shortness of breath, bleeding, nausea or vomiting, chest pain, or any unexpected problems, contact your Primary Care Provider. Call [facility] ([phone]) or report to the closest Emergency Room. Call 911 if necessary. 08/15/22 0028 <Electronically signed by Lionel Garcia MD> Cosigner Signature (if applicable): CC: Dr. Lesli Márquez, DO Signed Lesli Márquez DO Work Phone: Start: 08-14-2022 End: 08-16-2022 12 Lead EKG Procedure Note: See Note; NOTES: [facility] Cardiovascular Services [address] [place] [address] 12 Lead EKG 08/14/22 1351 MR#: [id number] Acct: [id number] Name: ALIX PALMER Rep #: [id number] : 1975 46 From: Gal Espinal MD Attending Dr: Status: DEP ER Ordering Dr: Provider,Ed P. Date: 08/14/22 Location: ED Sex: F C Admitted: Test Reason : NAUSEA Blood Pressure : / mmHG Vent. Rate : 111 BPM Atrial Rate : 111 BPM P-R Int : 126 ms QRS Dur : 074 ms QT Int : 344 ms P-R-T Axes : 044 -25 015 degrees QTc Int : 467 ms Sinus tachycardia Low voltage QRS Cannot rule out Inferior infarct , age undetermined Abnormal ECG Confirmed by EFRA DURBIN, GATITO ([id number]), advertising editor FREDA JOSEPH ([id number]) on 08/16/2022 2:07:28 PM Referred By: NATIVIDAD/TARI Confirmed By:NOE ESPINAL MD 08/16/22 1408 Date Gal Espinal MD CC: Dr. Lionel Garcia MD; Dr. Lesli Márquez DO; ED PHYSICIAN PROVIDER Signed Lesli Márquez DO Work Phone: Start: 08-14-2022 End: 08-14-2022 Chest 1 View (Portable) Procedure Note: See Note; NOTES: [facility] Imaging Services [address] [place] [id number] Chest 1 View (Portable) MR#: [id number] Acct: [id number] Name: ALIX PALMER Rep #: [id number] : 1975 F 46 From: Hudson olmos MD PCP: Dr. Lesli Márquez DO Status: REG ER Study: Chest 1 View (Portable) Date of Exam: 08/14/22 Exam# [id number] Ordering Dr: Sher,Ed P. STUDY: X-RAY CHEST REASON FOR EXAM: Female, 46 years old. General illness TECHNIQUE: Single AP portable view of the chest. COMPARISON: None. FINDINGS: EKG electrodes are seen. The lungs are clear and expanded. There is no demonstrated pleural abnormality. Normal size heart. Normal mediastinum and isamel. Normal visualized pulmonary arteries. Normal visualized aortic arch and descending thoracic aorta. Normal visualized thoracic spine. Normal visualized ribs, clavicles, and shoulders. There is no demonstrated abnormality of the visualized soft tissue structures of the upper abdomen. RAD/Chest 1 View (Portable) IMPRESSION: Normal x-ray examination of the chest. Electronically Signed: Hudson Calderon MD at 14:12 EDT Reading Location ID and State: [facility] / [place] , Service support , CC: Dr. Lesli Márquez DO; ED PHYSICIAN PROVIDER Parquet Floor Layer'S Helper: Signed Lesli Márquez DO Work Phone: Start: 08-14-2022 Plain chest X-ray Start: 03-22-2022 End: 03-31-2022 MRI Abd WITH and W/O Contrast Comments: See Note; NOTES: [facility] Imaging Services [address] [place] [id number] MRI Abd WITH and W/O Contrast MR#: [id number] Acct: [id number] Name: ALIX PALMER Rep #: [id number] : 1975 F 46 From: Gonzalo condon MD PCP: Dr. Lesli Márquez DO Status: REG CLI Study: MRI Abd WITH and W/O Contrast Date of Exam: Exam# [id number] Ordering Dr: Lesli Márquez DO STUDY: MRI ABDOMEN WITH AND WITHOUT CONTRAST REASON FOR EXAM: Female, 46 years old. LIVER LESION, F/U ABNORMAL FINDING ON CT TECHNIQUE: Standardized fat and water weighted pulse sequences were obtained in all 3 orthogonal planes post contrast administration. IV Yes YES was administered for the contrast portion of the examination. COMPARISON: None. FINDINGS: The visualized lung bases are unremarkable. The visualized portions of the heart are within normal limits. 2.6 cm T2 hyperintense/T1 hypointense lesion in the hepatic dome with gradual centripetal nodular enhancement consistent with hemangioma. Normal gallbladder and extrahepatic biliary system. Normal spleen. Normal pancreas. Normal bilateral adrenal glands. Normal right kidney. Normal left kidney. Normal visualized stomach. Normal small intestine. Normal colon. Normal abdominal aorta. Normal inferior vena cava. Normal retroperitoneum. Normal abdominal wall. Normal osseous structures. MRI/MRI Abd WITH and W/O Contrast IMPRESSION: 2.6 cm hemangioma in the hepatic dome. Electronically Signed: Gonzalo Bee MD at 23:58 EDT , CC: Dr. Lesli Márquez DO Parquet Floor Layer'S Helper: Signed Lesli Márquez DO Work Phone: Start: 03-22-2022 MRI of abdomen with contrast Start: 03-02-2022 End: 03-04-2022 Emergency Department Summary Comments: See Note; NOTES: [facility] Medical Records Department [address] [place] [address] Emergency Department Summary 03/02/22 MR#: [id number] Acct: [id number] Name: ALIX PALMER Rep #: [id number] : 1975 46 From: Pollo Pinto MD PCP: Dr. Lesli Márquez DO Status:REG ER Location: ED HPI HPI - GI History of Present Illness Chief Complaint: Abd Pain Informant: patient Abdominal Pain/Flank Pain Onset: Days Context: Gradual Onset Timing: Continuous Quality: Aching Location: RUQ Current Severity: Mild Maximum Severity: Mild Worsened by: Nothing Relieved by: Nothing Nausea/Vomiting/Emesis GI Symptom: Positive for Nausea and Vomiting Onset: Today Severity: Mild Diarrhea/Melena/Hematoche luci GI Symptom: Negative for Diarrhea, Melena and Hematochezia Associated Symptoms Associated Symptoms: Negative for Dysuria, Frequency, Hematuria and Urgency Narrative Narrative: 46-year-old female no seen past medical history. Prior back surgery but no prior abdominal surgery. States that on she started having right-sided abdominal pain. Towards the right upper quadrant but kind of between the upper quadrant and the lower quadrant. She denies any prior history. States she had nausea and vomiting times once on but has not had any since that time. She denies any fever or chills. She denies any dysuria. Describes it as a dull aching pain without any radiation to her back or left side of her abdomen. She has never had any history of pain like this before. Denies any trauma. Prior similar symptoms: No Recent Illness/Hospitalization: No PFSH PFSH Medical History no medical history no medical history Home Medications ondansetron 4 mg PO Q6H PRN #10 tab 03/02/22 [Rx Last Taken Unknown] Allergy/AdvReac Type Severity Reaction Status Date / Time ketorolac [From Toradol] Allergy Other Verified 03/02/22 07:25 Family History Mother Hypertension Father Hypertension Heart disease HLD (hyperlipidemia) Sister Hypertension Grandfather Hypertension Heart disease HLD (hyperlipidemia) Social History Smoking Status: Never smoker ROS ROS ED ROS Narrative Right-sided abdominal pain. Nausea vomiting x1. Review of Systems ROS Unobtainable: Denies due to encephalopathy Constitutional Constitutional ED: Denies fever(s) ENT ENT ED: Denies ear pain Cardiovascular Cardiovascular: Denies chest pain Respiratory/Chest Respiratory/Chest: Denies cough or dyspnea Gastrointestinal Gastrointestinal: Reports abdominal pain, nausea and vomiting; Denies constipation, diarrhea or melena Genitourinary Genitourinary ED: Denies dysuria or hematuria Musculoskeletal Musculoskeletal: Denies arthralgias or myalgias Integumentary Denies abscess or rash Neurologic Neurologic: Denies headache(s) or weakness Psychiatric Psychiatric: Denies anxiety or depression Endocrine Endocrinology: Denies polyuria Hematologic/Lymphatic Hematologic/Lymphatic: Denies easy bruising Allergic/Immunologic Allergic/Immunologic ED: Denies urticaria EXAM Physical Exam Narrative Exam Narrative: 46-year-old no acute distress. Vital signs stable afebrile. H EENT exam unremarkable. Lungs are clear. Heart regular rhythm. Abdomen is soft nondistended normal bowel sounds no peritoneal signs. Tender right sided upper quadrant. McBurney's point of right lower quadrant there is no tenderness. Left-sided abdomen is no tenderness. There is no hernia or mass. No distention. No signs of obstruction. Normal bowel sounds. No organomegaly appreciated. Patient moving all 4 extremities. Back nontender. Neurologically awake and alert no focal motor deficits. Const Vital Signs: 03/02/22 07:24 03/02/22 07:26 Temperature 97.9 F Temperature Source Temporal Pulse Rate 122 H 122 H Respiratory Rate 22 H 14 Blood Pressure 153/107 H 181/112 H Blood Pressure Mean 122 135 Pulse Ox 100 100 Oxygen Delivery Method Room Air Room Air Positive well nourished, well developed and obese; Negative for cachectic, contractures or unkempt General Appearance ED: well developed and NAD; Negative for unkempt, cachectic, contractures or pallor Nutritional Appearance: obese; Negative for cachectic HEENT Reports moist mucous membranes; Denies dry mucous membranes normocephalic and atraumatic; Negative for trauma or tenderness Mouth ED: No dry mucous membranes Mouth: No dry mucous membranes Eyes PERRL and EOMs intact bilaterally Neck no lymphadenopathy, supple and no JVD General: Negative for tenderness Resp normal respiratory effort and clear to auscultation bilaterally Auscultation: Negative for rales, rhonchi or wheezes Cardio regular rate, regular rhythm, S1 normal heart sound, S2 normal heart sound and no murmurs GI non-distended and no masses; Negative for non-tender GI Narrative: Right upper quadrant tenderness. No Carlos sign. No McBurney's point tenderness at all. Soft. Inspection: Negative for abdominal distention Auscultation: normoactive bowel sounds; Negative for hyperactive bowel sounds or hypoactive bowel sounds Palpation: soft and tender; Negative for guarding, rigid or rebound tenderness present Back/Spine no CVA tenderness General Back: Negative for CVA tenderness Cervical Spine: Negative for cervical spine tenderness Thoracic Spine / Upper Back: Negative for thoracic spinal tenderness Extremity full ROM General Extremety ED: Negative for edema or tenderness General Extremity: Negative for edema Neuro moves all extremities Sensorium / Orientation: alert, oriented to person, oriented to place and oriented to time; Negative for orientation impaired, confused, lethargic or stuporous Motor Exam: strength 5/5 throughout Psych mental status grossly normal and thought process normal Appearance: Negative for unkempt Attitude: No agitated Mood Affect: Negative for depressed or tearful Skin no wounds General Skin Exam: Negative for jaundice or pallor Lesions: no lesions Rashes: no rashes and No rashes noted MDM MDM MDM Narrative Medical decision making narrative: 46-year-old female with 2 to 3-day history of right sided abdominal pain primarily right upper quadrant. Gallbladder is a possibility versus other etiologies. CAT scan and labs are being obtained. She did not want anything for pain and her nausea is resolved. Repeat exam patient is doing well. She will be discharged home. I have her primary care physician group on page to let them know she will need follow-up most likely an MR I of her liver. She will just use Tylenol Motrin for pain. She will be given a prescription of Zofran as needed for nausea. Lab Data Attestation: I reviewed the patient's lab results. Lab results narrative: CBC shows a white count of 7. H H 13 and 40. Electrolytes unremarkable gap is 7 normal BUN and creatinine. Liver enzymes are unremarkable. Lipase is unremarkable at 64. Serum test is negative. Labs: Laboratory Results - last 24 hr 03/02/22 03/02/22 03/02/22 08:00 08:00 08:00 WBC 7.5 RBC 4.32 Hgb 13.4 Hct 40.6 MCV 94.0 MCH 31.0 MCHC 33.0 RDW Std Deviation 43.3 RDW Coeff of Diane 12.5 Plt Count 307 MPV 10.5 Immature Gran % (Auto) 0.300 Neut % (Auto) 58.5 Lymph % (Auto) 30.3 [place] % (Auto) 7.6 Eos % (Auto) 2.5 Baso % (Auto) 0.8 Absolute Neuts (auto) 4.4 Absolute Lymphs (auto) 2.27 Nucleated RBC % 0 Sodium 138 Potassium 3.7 Chloride 109 H Carbon Dioxide 22.0 Anion Gap 7 BUN 12 Creatinine 0.65 Estim Creat Clear Calc 103.39 Est GFR (MDRD) Af Amer 127 Est GFR (MDRD) Non-Af 105 BUN/Creatinine Ratio 18.5 Glucose 103 Calcium 8.8 Total Bilirubin 0.50 AST 14 L ALT 20 Alkaline Phosphatase 86 Total Protein 8.2 Albumin 3.1 L Globulin 5.1 H Albumin/Globulin Ratio 0.6 L Lipase 64 L Serum , Qual NEGATIVE Urine Color Urine Clarity Urine pH Ur Specific Newcomb Urine Protein Urine Glucose (UA) Urine Ketones Urine Occult Blood Urine Nitrite Urine Bilirubin Urine Urobilinogen Ur Leukocyte Esterase Urine RBC Urine WBC Ur Squamous Epith Cells Urine Bacteria Urine Mucus 03/02/22 09:26 WBC RBC Hgb Hct MCV MCH MCHC RDW Std Deviation RDW Coeff of Diane Plt Count MPV Immature Gran % (Auto) Neut % (Auto) Lymph % (Auto) [place] % (Auto) Eos % (Auto) Baso % (Auto) Absolute Neuts (auto) Absolute Lymphs (auto) Nucleated RBC % Sodium Potassium Chloride Carbon Dioxide Anion Gap BUN Creatinine Estim Creat Clear Calc Est GFR (MDRD) Af Amer Est GFR (MDRD) Non-Af BUN/Creatinine Ratio Glucose Calcium Total Bilirubin AST ALT Alkaline Phosphatase Total Protein Albumin Globulin Albumin/Globulin Ratio Lipase Serum , Qual Urine Color Yellow Urine Clarity Clear Urine pH 6.5 Ur Specific Newcomb 1.005 Urine Protein Negative Urine Glucose (UA) Normal Urine Ketones Negative Urine Occult Blood Negative Urine Nitrite Negative Urine Bilirubin Negative Urine Urobilinogen Normal Ur Leukocyte Esterase Negative Urine RBC 0 SEEN Urine WBC 0 SEEN Ur Squamous Epith Cells 0-5 SEEN Urine Bacteria 0 SEEN Urine Mucus 0 SEEN Radiography Diagnostic Testing: Clinical Impression(s) from Imaging Studies Abdomen/Pelvis CT 03/02/22 07:46 IMPRESSION: (NOT LISTED IN ORDER OF SIGNIFICANCE) 20mm enhancing lesion in the right lobe of the liver. ACR White Paper guidelines (Tom, et al. JACR 2017; 14(11):7769-5803.) suggest the following. For patients with low risk of malignancy, recommend hepatic MR. For patients with high risk of malignancy (known malignancy with a propensity to metastasize to the liver, cirrhosis, and/or other hepatic risk factors), recommend hepatic MR or core biopsy. There are diffuse degenerative changes of the visualized lumbar spine. There is bilateral neural foraminal stenosis at L4-5 and L5-S1. There are calcifications of the abdominal aorta. This is consistent for atherosclerotic disease. There is no abdominal aortic aneurysm. Other findings as above. Electronically Signed: Jose Carlos Hinojosa MD at 9:13 EDT Reading Location ID and State: [facility] / [place] , Service support , Discharge Plan Triage Chief Complaint: Abd Pain ED Provider: Pollo Pinto Dx/Rx/DC Orders Clinical Impression: Abdominal pain Instructions: Abdominal Pain Prescriptions: New ondansetron 4 mg tablet,disintegrating 4 mg PO Q6H PRN (Reason: nausea and vomiting) Qty: 10 RF: 0 Primary Care Provider: Lesli Márquez Referrals: Lesli Márquez DO [Primary Care Provider] - 1-2 Weeks Activity Restrictions/Additional Instructions: Do not have a specific cause for your abdominal pain. Your labs were unremarkable. The CAT scan did show an enhancing area in your liver that is are unsure what this is exactly. He will need to follow-up with your primary care physician to get an MRI of your liver for further evaluation of this. This may or may not be associated with the pain and nausea. You also had an incidental finding of umbilical or bellybutton hernia. Motrin and Tylenol for pain. Follow-up with your doctors office for further evaluation of the finding on your liver. Zofran as needed for nausea. Disposition Disposition: Home, Self Care What to do if you have Problems For any increased pain, shortness of breath, bleeding, nausea or vomiting, chest pain, or any unexpected problems, contact your Primary Care Provider. Call [facility] ([phone]) or report to the closest Emergency Room. Call 911 if necessary. 03/02/22 0957 <Electronically signed by Pollo Pinto MD> Cosigner Signature (if applicable): CC: Dr. Lesli Márquez, DO Signed Lesli Márquez DO Work Phone: Start: 03-02-2022 End: 03-04-2022 Abdomen/Pelvis W IV Cont ONLY Comments: See Note; NOTES: [facility] Imaging Services [address] [place] [address] Abdomen/Pelvis W IV Cont ONLY MR#: [id number] Acct: [id number] Name: TASIADAVIDALIX M Rep #: [id number] : 1975 F 46 From: Jose Carlos Barrera PCP: Dr. Lesli Márquez, DO Status: PRE ER Study: Abdomen/Pelvis W IV Cont ONLY Date of Exam: Exam# [id number] Ordering Dr: Pollo Pinto MD STUDY: CT Abdomen And Pelvis W/ Contrast Injection 03/02/2022 9:05 AM REASON FOR EXAM: Female, 46 years old. ride sided abd pain TECHNIQUE: Transaxial images were obtained without oral contrast, and without 100mL Isovue 300 intravenous contrast. Individualized dose optimization techniques were used for this CT. COMPARISON: None. FINDINGS: The visualized lung bases are unremarkable. The visualized portions of the heart are within normal limits. 20mm enhancing lesion in the right lobe of the liver. Unremarkable gallbladder and extrahepatic biliary system. Unremarkable spleen. Unremarkable pancreas. Unremarkable bilateral adrenal glands. No acute findings of the right kidney. No acute findings of the left kidney. Unremarkable visualized stomach. Unremarkable small intestine. Unremarkable colon. The appendix is visualized and appears unremarkable. There are calcifications of the abdominal aorta. This is consistent for atherosclerotic disease. There is no abdominal aortic aneurysm. Unremarkable inferior vena cava. Subcentimeter mesenteric lymph nodes. Unremarkable urinary bladder. Normal visualized uterus. There is an umbilical hernia containing fat. There are diffuse degenerative changes of the visualized lumbar spine. There is bilateral neural foraminal stenosis at L4-5 and L5-S1. CT/Abdomen/Pelvis W IV Cont ONLY IMPRESSION: (NOT LISTED IN ORDER OF SIGNIFICANCE) 20mm enhancing lesion in the right lobe of the liver. ACR White Paper guidelines (Tom, et al. JACR 2017; 14(11):3661-0137.) suggest the following. For patients with low risk of malignancy, recommend hepatic MR. For patients with high risk of malignancy (known malignancy with a propensity to metastasize to the liver, cirrhosis, and/or other hepatic risk factors), recommend hepatic MR or core biopsy. There are diffuse degenerative changes of the visualized lumbar spine. There is bilateral neural foraminal stenosis at L4-5 and L5-S1. There are calcifications of the abdominal aorta. This is consistent for atherosclerotic disease. There is no abdominal aortic aneurysm. Other findings as above. Electronically Signed: Jose Carlos Hinojosa MD at 9:13 EDT , CC: Dr. Pollo Pinto MD; Dr. Lesli Márquez DO Parquet Floor Layer'S Helper: Signed Lesli Márquez DO Work Phone: Start: 03-02-2022 Computed tomography of abdomen and pelvis with intravenous contrast Operation on vertebra Alycia Slarb TECHNICAL SERVICES ASSISTANT Comment on above: 2010 Dr. Eduardo Operation on vertebra Sofiya Gravius [facility] Comment on above: 2010 Dr. Eduardo Operation on vertebra Sofiya Gravius [facility] Comment on above: 2010 Dr. Eduardo Operation on vertebra Kayela [place] [facility] Comment on above: 2010 Dr. Eduardo Operation on vertebra Saleem Michael TECHNICAL SERVICES ASSISTANT Comment on above: 2010 Dr. Eduardo Operation on vertebra Kayela [place] [facility] Comment on above: 2010 Dr. Eduardo Operation on vertebra Kayela Nguyen [facility] Comment on above: 2010 Dr. Eduardo Operation on vertebra Kayela [place] [facility] Comment on above: 2010 Dr. Eduardo Operation on vertebra Kayela [place] [facility] Comment on above: 2010 Dr. 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 Tonsillectomy Tonsillectomy Kayela Radfor d [employer] OFFICER Tonsillectomy Tonsillectomy Saleem Michael TECHNICAL SERVICES ASSISTANT Tonsillectomy Tonsillectomy Kayela Radfor d [employer] OFFICER Tonsillectomy Tonsillectomy Kayela Radfor d [employer] OFFICER Tonsillectomy Tonsillectomy Kayela Radfor d [employer] OFFICER Tonsillectomy Tonsillectomy Kayela Radfor d [employer] Plan of Treatment Date Care Activity Detail Author Start: 2027 Zoster Vaccines (1 of 2) Zoste r Vaccines (1 of 2) [facility] Start: 04-08-2025 Screening for osteoporosis Bone Density Scan [facility] Start: 06-20-2024 COVID-19 Vaccine ( season) COVID-19 Vaccine () [facility] Start: 06-20-2024 Influenza vaccination Influenza Vacc ine (#1) [facility] Start: 04-08-2023 Dual energy X-ray absorptiometry Dexa Bone Density Study [facility] Start: 03-13-2023 Procedure Education Eprescribe d prescriptions (G8553) [facility]; [facility] Work Phone: Start: 03-13-2023 Provider Instruction s for Treatment [facility]; [facility] Work Phone: Start: 11-14-2022 Procedure Education Eprescribe d prescriptions (G8553) [facility]; [facility] Work Phone: Start: 10-09-2022 Procedure Education Eprescribe d prescriptions (G8553) [facility]; [facility] Work Phone: Start: 10-09-2022 Provider Instruction s for Treatment Skin Tags [facility]; [facility] Work Phone: Start: 09-11-2022 Procedure Education Eprescribe d prescriptions (G8553) [facility]; [facility] Work Phone: Start: 09-11-2022 Provider Instruction s for Treatment [facility]; [facility] Work Phone: Start: 08-16-2022 Procedure Education Eprescribe d prescriptions (G8553) [facility]; [facility] Work Phone: Start: 08-16-2022 Provider Instruction s for Treatment [facility]; [facility] Work Phone: Start: 07-10-2022 Lipid panel LIPID PANEL (00406) [facility]; [facility] Work Phone: Start: 07-10-2022 Procedure Education Eprescribe d prescriptions (G8553) [facility]; [facility] Work Phone: Start: 07-10-2022 Provider Instruction s for Treatment Diet, Exercise, and Wt loss [facility]; [facility] Work Phone: Start: 05-16-2022 Procedure Education Eprescribe d prescriptions (G8553) [facility]; [facility] Work Phone: Start: 05-16-2022 Provider Instruction s for Treatment Reviewed Diagnostic Tests [facility]; [facility] Work Phone: Start: 03-28-2022 Procedure Education Eprescribe d prescriptions (G8553) [facility]; [facility] Work Phone: Start: 03-28-2022 Provider Instruction s for Treatment [facility]; [facility] Work Phone: Start: 03-28-2022 Blood count complete auto&auto difrntl wbc CBC W/AUTO DIFF WBC (18307) [facility]; [facility] Work Phone: Start: 03-11-2022 Procedure Education Eprescribe d prescriptions (G8553) [facility]; [facility] Work Phone: Start: 03-11-2022 Provider Instruction s for Treatment [facility]; [facility] Work Phone: Start: 03-05-2022 25 hydroxy includes fractions if performed CALCIFEDIOL (91279) [facility]; [facility] Work Phone: Start: 03-05-2022 Urine albumin quantitative MICROALBUMIN: CREATININE RATIO (53526) AND (89258) [facility]; [facility] Work Phone: Start: 03-05-2022 Assay of thyroid stimulating hormone tsh TSH (THYROID STIMULATING HORMONE) (65702) [facility]; [facility] Work Phone: Start: 03-05-2022 Blood count complete automated CBC & PLATELETS (AUTO) (40295) [facility]; [facility] Work Phone: Start: 03-05-2022 Comprehensive metabo lic panel METABOLIC PANEL, COMPREHENSIVE (70342) [facility]; [facility] Work Phone: Start: 03-05-2022 Lipid panel LIPID PANEL (86247) [facility]; [facility] Work Phone: Start: 2017 Screening for malign ant neoplasm of breast Mammogram [facility] Start: 05-24-2010 Provider Instruction s for Treatment [facility]; [facility] Work Phone: Start: 05-24-2010 25 hydroxy includes fractions if performed Vitamin D Hydroxy (12499) [facility]; [facility] Work Phone: Start: 05-24-2010 1 25 dihydroxy inclu haily fractions if performed VITAMIN D, 1, 25-DIHYDROXY (16822) [facility]; [facility] Work Phone: Start: 05-24-2010 Assay of thyroid stimulating hormone tsh TSH (64119) [facility]; [facility] Work Phone: Start: 05-24-2010 Protein electrophore tic fractj&quantj serum [facility]; [facility] Work Phone: Start: 05-24-2010 Sedimentation rate r bc non-automated SED RATE ERYTHROCYTE (04941) [facility]; [facility] Work Phone: Start: 05-24-2010 Assay of phosphorus inorganic PHOSPHORUS (53484) [facility] Work Phone: Start: 05-24-2010 Assay of parathormone PARATHORMONE ( 28069) [facility] Work Phone: Start: 05-24-2010 Hepatic function panel HEPATIC FUNCTION PANEL (95624) [facility] Work Phone: Start: 05-24-2010 Blood count complete automated CBC (AUTO) (21320) [facility] Work Phone: Start: 05-24-2010 Calcium total CALCIUM SERUM (74521) [facility]; [facility] Work Phone: Start: 05-24-2010 C-reactive protein C-REACTIVE PROTEIN (10186) [facility]; [facility] Work Phone: Start: 05-24-2010 Assay of phosphatase alkaline ALKALINE PHOSPHATASE (65497) [facility]; [facility] Work Phone: Start: 07-20-2009 Provider Instruction s for Treatment [facility]; [facility] Work Phone: Start: 12-28-2008 Patient Education Sore throat: diagnosis and treatment [facility]; [facility] Work Phone: Start: 12-28-2008 Provider Instruction s for Treatment *URI Treatment [facility]; [facility] Work Phone: Start: 11-30-2008 Provider Instruction s for Treatment [facility]; [facility] Work Phone: Start: 11-30-2008 Lipid panel LIPID PANEL (03561) [facility]; [facility] Work Phone: Comment on above: do in 6 mo Start: 07-27-2008 Provider Instruction s for Treatment [facility]; [facility] Work Phone: Start: 07-27-2008 Glucose quantitative blood xcpt reagent strip Glucose, PP/2 Hour (75269) [facility]; [facility] Work Phone: Start: 1999 DTaP/Tdap/Td Vaccine s (1 - Tdap) DTaP/Tdap/Td Vaccines (1 - Tdap) [facility] Start: 1998 Screening for malign ant neoplasm of cervix [facility] Start: 1996 Hepatitis A Vaccines (1 of 2 - Risk 2-dose series) Hepatitis A Vaccines (1 of 2 - Risk 2-dose series) [facility] Start: 1996 Hepatitis B Vaccines (1 of 3 - 19+ 3-dose series) Hepatitis B Vaccines (1 of 3 - 19+ 3-dose series) [facility] Start: 1995 Diabetes mellitus screening Diabetes Screening [facility] Start: 1995 Hepatitis C screening Hepatitis C Sc [facility] Start: 1978 MMR Vaccines (1 of 1 - Standard series) MMR Vaccines (1 of 1 - Standard series) [facility] Start: 1977 HIV screening HIV Screening [facility] Start: 1977 Lipid panel Lipid Panel [facility] Start: 1977 Screening for malign ant neoplasm of colon [facility] Start: 1977 Yearly Adult Physical Yearly Adult P hysical [facility] End: 12-25-2024 CT for calcium scoring WO contrast and CTA W contrast IV [facility] Work Phone: Comment on above: Once for 1 Occurrenc es starting 12/25/2024 until 12/25/2024 CTA Chest vessels WO and W contrast IV [facility] Patient Education [place] Work Phone: Patient referral [facility] Work Phone: [facility] Work Phone: [facility] Work Phone: [facility] Work Phone: [facility] Work Phone: [facility]; [facility] Work Phone: [facility] Work Phone: [facility] Work Phone: [facility]; [facility] Work Phone: [facility] Work Phone: [facility]; [facility] Work Phone: Immunizations Immunization Date Immunization Notes Care Provider aEston jimenez 08-13-2022 influenza, seasonal, injectable Lesli Suon DO Work Phone: [facility]; [facility] Work Phone: 08-13-2022 influenza virus vaccine, unspecified formulation [address] Work Phone: Payers Date Payer Category Payer Self-pay [id number] 2023 Worker's Compensation [id number] 2023 [facility] [id number] 2021 Unknown [id number] 2010 Unknown [id number] 2008 Unknown [id number] 1977 Unknown [id number] 1977 Unknown [id number] 1977 Unknown [id number] Unknown [facility] *DO NOT USE* [id number] Unknown Unknown [facility] PACKAGE PLAN [id number] Unknown [id number] Unknown [id number] 462 Unknown [id number] 462 Unknown [id number] 462 Unknown [id number] 462 Unknown [id number] 462 Unknown [id number] 462 Unknown [id number] 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 Start: 12-25-2024 Gender identity Identifies as female gender (finding) [facility] Work Phone: Start: 12-25-2024 Sexual orientation Heterosexual (fin ding) [facility] Work Phone: Start: 12-15-2024 End: 12-25-2024 Exposure to SARS-CoV-2 (event) Not sure [facility] Work Phone: Start: 04-15-2024 Tobacco smoking stat us NHIS Never smoked tobacco (finding) [facility] Start: 02-15-2025 Sex Female (finding) [facility] Mental Status Date Assessment Result Facility 08-14-2022 Cognitive function Level Of Cons ciousness Awake;Alert;Appropriate;Follow s Commands [facility] Work Phone: Clinical Notes 04-15-2024 to 02-11-2025 Note Date & Type Note Facility 02-11-2025 Evaluation note Diagnosis Onset Date Resolution Thoracic aortic aneurysm acute February 11, 2025 8:24am [facility] Work Phone: 1(236) 722-987904-24-2025 Radiology Diagnostic study note [facility] Imaging Services [address] [place], [place] [id number] Abdomen W/WO IV Contrast MR#: [id number] Acct: [id number] Name: ALIX PALMER Rep #: [id number] : 1975 F 49 From: Devin Crockett DO PCP: Dr. Lesli Márquez DO Status: RE G CLI Study:Abdomen W/WO IV Contrast Date of Exam: 02/10/25 Exam# [id number] Ordering Dr: Matt Márquez DO PROCEDURE: ABDOMEN W/WO IV CONTRAST 02/10/2025 REASON FOR EXAM: HEPATIC LESION TECHNIQUE: Abdomen CT with intravenous contrast. Coronal and Sagittal reconstruction serieswere provided. One or more dose reduction techniques were used (e.g., Automated exposure control, adjustment of the mA and/or kV according to patient size, use of iterative reconstruction technique. COMPARISON: None FINDINGS: Subtle hypodense lesion along the right hepatic dome measuring up to 2.4 cm width peripheral nodular contrast enhancement which becomes isointense on delayed imaging favoring a hemangioma. No other hepatic lesions identified. Spleen, pancreas and adrenal glands are intact. Gallbladder is contracted. No significant biliary ductal dilation. Kidneys enhance symmetrically. No suspicious renal mass, calculi or hydronephrosis. Partially duplicated right renal collecting system. No bowel obstruction, focal bowel wall thickening or significant perienteric inflammation. No free air or free fluid. Mildly calcified nonaneurysmal abdominal aorta. No bulky adenopathy. Superficial soft tissues are within normal limits. No acute osseous abnormality. Mild degenerative changes of the spine. CT/Abdomen W/WO IV Contrast IMPRESSION: Enhancing lesion along the right hepatic dome with imaging characteristics consistent with a hemangioma. Reading Location: [facility] CC: Dr. 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 Lesli Márquez, DO Status:[facility] Location: [place] [address] HPI - General General Date of Service: 04/15/24 HPI Narrative ALIX PALMER, is a 48 F who presents for screening colonoscopy. Patient never had previous colonoscopy. Patient denies any family history of colon cancer. Patient denies any chronic abdominal pain/nausea/vomiting. Patient is currently trying to figure out her chronic cough which she is on lisinopril and some reflux which she has at night. Patient is currently on Protonix. Patient has bowel movements daily denies any blood. [facility] Medical History (Updated 04/15/24 @ 12:[address] Christie Ortiz MD) Difficult intravenous access Wears glasses Anxiety High cholesterol Migraine headache Restless legs Dietary restriction PONV (postoperative nausea and vomiting) Gastric reflux Non-smoker Chronic cough Hemangioma of liver Liver lesion High blood pressure Nasal bleeding COVID Home Medications ???Medication ???Instructions ???Recorded ???Last Taken ???Type escitalopram oxalate 10 mg tablet 10 mg PO DAILY 03/25/24 Unknown History pantoprazole 40 mg tablet,delayed 40 mg PO QHS 03/25/24 Unknown History release MITOCORE 4 tab DAILY 04/09/24 Unknown History lisinopril 10 mg tablet 10 mg PO BID 04/09/24 Unknown History tyrosine 400 mg-acetylcysteine 133 3 cap PO BID 04/09/24 Unknown History mg capsule (AdrenaMax) Allergy/AdvReac Type Severity Reaction Status Date / Time Beef Containing Products Allergy Severe Hives Verified 04/09/24 14:36 ketorolac (From Toradol) Allergy Other Verified 04/09/24 14:36 Family History Mother Hypertension Colon polyps Father Hypertension Heart disease HLD (hyperlipidemia) Sister Hypertension Grandfather Hypertension Heart disease HLD (hyperlipidemia) Surgical History History of back surgery Hx of tonsillectomy Hx of adenoidectomy Social History household members: significant other current occupational status: employed 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 Smoking Status: Never smoker alcohol intake: current alcohol intake frequency: holidays/special occasions only substance use type: does not use Past Medical/Surgical History Planned Operation Planned Operative Procedure(s): COLONOSCOPY Previous Hospitalizations/Surgeries HX Hospitalizations: No Any Problems With Anesthesia: Yes (PONV) You/Your Family Experience Fever (Hyperthermia) With Anes: No Cholinesterase deficiency: No Cardiovascular Hx of Irregular Heartbeat and/or Afib: No Hx Heart Attack: No Hx Congestive Heart Failure: No Hx Rheumatic Fever: No Hx Hypertension: Yes (PER PT, CONTROLLED ON MEDS) Hx Pacemaker: No Respiratory HX of Shortness of Breath: No Hx Chronic Obstructive Pulmonary Disease (COPD): No Hx Asthma: No Hx Emphysema: No Hx Sleep Apnea: No Hx Respiratory Tract Infection/Cold (presently): No Do You Snore Loudly (louder than talking or can be heard): No Do You Often Feel Tired/ Fatigued/ Sleepy Dring Daytime?: No Has Anyone Observed You Stop Breathing During Sleep?: No Result (for STOP score): Negative Smoking Status: Never smoker Gastrointestinal Hx Ulcer: No Special diet followed at home: No Neurological Hx Seizures: No Hx Multiple Sclerosis: No Hx Parkinson's Disease: No Hx Head/Neck Injury: No Hx Headaches: Yes Hx Back Injury/Pain: Yes Does patient have nerve stimulator: No Blood Disorder Hx Hepatitis: No Hx Anemia: No Reproduction : No Is Patient Lactating: No Musculoskeletal Hx Arthritis: No Hx Gout: No Endocrine Hx Diabetes: No Thyroid Disease: No Psycho/Social Hx Anxiety: No Hx Depression: No Hx Dementia: No Miscellaneous Hx Cancer: No Recent Exposure to Contagious Disease: No Allergies Beef Containing Products Allergy (Severe, Verified 04/09/24 14:36) Hives ITCHING, SWELLING, N/V/D ketorolac (From Toradol) Allergy (Verified 04/09/24 14:36) Other SHUTS MY KIDNEYS DOWN Discharge Is Pt Admitted From a Shelter, or a Senior Living: No After D/C, Where Do you Plan to Go: Return Home Vital Signs Vital Signs Vital Signs: 04/15/24 11:08 04/15/24 11:08 Temperature 98.2 F Temperature Source Temporal Pulse Rate 79 Respiratory Rate 16 Respiratory Pattern Normal Blood Pressure 127/94 H Blood Pressure Mean 105 Blood Pressure Source Monitor Blood Pressure Position Sitting (more content not included)...[facility] noteNo assessment information availableWC[facility] Work Phone: Evaluation note* Diagnosis Other abnormal glucose documented in this encounter [facility] Work Phone: Hospital Discharge instructions Additional Instructions Do not have a specific cause for your abdominal pain. Your labs were unremarkable. The CAT scan did show an enhancing area in your liver that is are unsure what this is exactly. He will need to follow-up with your primary care physician to get an MRI of your liver for further evaluation of this. This may or may not be associated with the pain and nausea. You also had an incidental finding of umbilical or bellybutton hernia. Motrin and Tylenol for pain. Follow-up with your doctors office for further evaluation of the finding on your liver. Zofran as needed for nausea.[facility] Work Phone: Hospital Dis[facility] instructionsWC[facility] Work Phone: Hospital Dis[facility] instructionsWC[facility] Work Phone: Hospital Discharge instructions Additional Instructions Get any [id number]-[id number] nasal decongestant spray containing oxymetazoline or phenylephrine. For moderate-severe nosebleed: 1 - gather supplies: nasal decongestant spray (above), cotton ball, box of tissues, garbage can, old towel that you can wrap around your chest/neck (to catch blood) 2 - soak a cotton ball in the nasal spray 3 - blow your nose, get all blood and clots out, keep chin down to prevent blood from going back into throat and forming clots 4 - after blowing the last time, quickly spray 2 sprays of the nasal spray into the affected side and sniff it back, immediately followed by twisting the soaked cotton ball into the front of your nose and then hold pressure with your fingers. 5 - if bleeding controlled, leave cotton ball in place for at least 20 min before checking to see if the bleeding is controlled by removing the cotton ball. If not able to control bleeding, always welcome to return to the ER for help. With regards to her blood pressure, try to check it a couple times a week if you are able.[facility] Work Phone: instructions* Name Dates Details Patient Instructions Indication:Non-smoker Start:11-Mar-2022 Instruction Type:Provider Instructions for Treatment How to Access Health Informa tion Online using Patient Portal and [employer] Apps Indication:Non-smoker Start:11-Mar-2022 Instruction Type:Patient Education [facility]; [facility] Work Phone: instructions* Name Dates Details Patient Instructions Indication:Non-smoker Start:11-Mar-2022 Instruction Type:Provider Instructions for Treatment How to Access Health Informa tion Online using Patient Portal and [employer] Apps Indication:Non-smoker Start:11-Mar-2022 Instruction Type:Patient Education [facility]; [facility] Work Phone: instructions* Name Dates Details Patient Instructions Indication:Non-smoker Start:28-Mar-2022 Instruction Type:Provider Instructions for Treatment How to Access Health Informa tion Online using Patient Portal and [employer] Apps Indication:Non-smoker Start:28-Mar-2022 Instruction Type:Patient Education Patient Instructions Indication:Non-smoker Start:11-Mar-2022 Instruction Type:Provider Instructions for Treatment How to Access Health Informa tion Online using Patient Portal and [employer] Apps Indication:Non-smoker Start:11-Mar-2022 Instruction Type:Patient Education [facility]; [facility] Work Phone: instructions* Name Dates Details Patient Instructions Indication:Non-smoker Start:28-Mar-2022 Instruction Type:Provider Instructions for Treatment How to Access Health Informa tion Online using Patient Portal and [employer] Apps Indication:Non-smoker Start:28-Mar-2022 Instruction Type:Patient Education Patient Instructions Indication:Non-smoker Start:11-Mar-2022 Instruction Type:Provider Instructions for Treatment How to Access Health Informa tion Online using Patient Portal and [employer] Apps Indication:Non-smoker Start:11-Mar-2022 Instruction Type:Patient Education [facility]; [facility] Work Phone: instructions* Name Dates Details Patient Instructions Indication:Morbid obesity Start:16-May-2022 Instruction Type:Provider Instructions for Treatment How to Access Health Informa tion Online using Patient Portal and [employer] Apps Indication:Morbid obesity Start:16-May-2022 Instruction Type:Patient Education Patient Instructions Indication:Non-smoker Start:28-Mar-2022 Instruction Type:Provider Instructions for Treatment How to Access Health Informa tion Online using Patient Portal and 3rd [employer] Apps Indication:Non-smoker Start:28-Mar-2022 Instruction Type:Patient Education Patient Instructions Indication:Non-smoker Start:11-Mar-2022 Instruction Type:Provider Instructions for Treatment How to Access Health Informa tion Online using Patient Portal and 3rd [employer] Apps Indication:Non-smoker Start:11-Mar-2022 Instruction Type:Patient Education [facility]; [facility] Work Phone: instructions* Name Dates Details Patient Instructions Indication:BMI 40.0-44.9, adult Start:10-Jul-2022 Instruction Type:Provider Instructions for Treatment How to Access Health Informa tion Online using Patient Portal and 3rd [employer] Apps Indication:BMI 40.0-44.9, adult Start:10-Jul-2022 Instruction Type:Patient Education Patient Instructions Indication:Morbid obesity Start:16-May-2022 Instruction Type:Provider Instructions for Treatment How to Access Health Informa tion Online using Patient Portal and 3rd [employer] Apps Indication:Morbid obesity Start:16-May-2022 Instruction Type:Patient Education Patient Instructions Indication:Non-smoker Start:28-Mar-2022 Instruction Type:Provider Instructions for Treatment How to Access Health Informa tion Online using Patient Portal and [employer]rd [employer] Apps Indication:Non-smoker Start:28-Mar-2022 Instruction Type:Patient Education Patient Instructions Indication:Non-smoker Start:11-Mar-2022 Instruction Type:Provider Instructions for Treatment How to Access Health Informa tion Online using Patient Portal and [employer] Apps Indication:Non-smoker Start:11-Mar-2022 Instruction Type:Patient Education [facility]; [facility] Work Phone: instructions* Name Dates Details Patient Instructions Indication:BMI 40.0-44.9, adult Start:10-Jul-2022 Instruction Type:Provider Instructions for Treatment How to Access Health Informa tion Online using Patient Portal and [employer] Apps Indication:BMI 40.0-44.9, adult Start:10-Jul-2022 Instruction Type:Patient Education Patient Instructions Indication:Morbid obesity Start:16-May-2022 Instruction Type:Provider Instructions for Treatment How to Access Health Informa tion Online using Patient Portal and [employer]rd [employer] Apps Indication:Morbid obesity Start:16-May-2022 Instruction Type:Patient Education Patient Instructions Indication:Non-smoker Start:28-Mar-2022 Instruction Type:Provider Instructions for Treatment How to Access Health Informa tion Online using Patient Portal and [employer] Apps Indication:Non-smoker Start:28-Mar-2022 Instruction Type:Patient Education Patient Instructions Indication:Non-smoker Start:11-Mar-2022 Instruction Type:Provider Instructions for Treatment How to Access Health Informa tion Online using Patient Portal and [employer] Apps Indication:Non-smoker Start:11-Mar-2022 Instruction Type:Patient Education [facility]; [facility] Work Phone: insDataheroions* Name Dates Details Patient Instructions Indication:Non-smoker Start:16-Aug-2022 Instruction Type:Provider Instructions for Treatment How to Access Health Informa tion Online using Patient Portal and [employer] Apps Indication:Non-smoker Start:16-Aug-2022 Instruction Type:Patient Education Patient Instructions Indication:BMI 40.0-44.9, adult Start:10-Jul-2022 Instruction Type:Provider Instructions for Treatment How to Access Health Informa tion Online using Patient Portal and 3rd [employer] Apps Indication:BMI 40.0-44.9, adult Start:10-Jul-2022 Instruction Type:Patient Education Patient Instructions Indication:Morbid obesity Start:16-May-2022 Instruction Type:Provider Instructions for Treatment How to Access Health Informa tion Online using Patient Portal and 3rd [employer] Apps Indication:Morbid obesity Start:16-May-2022 Instruction Type:Patient Education Patient Instructions Indication:Non-smoker Start:28-Mar-2022 Instruction Type:Provider Instructions for Treatment How to Access Health Informa tion Online using Patient Portal and 3rd [employer] Apps Indication:Non-smoker Start:28-Mar-2022 Instruction Type:Patient Education Patient Instructions Indication:Non-smoker Start:11-Mar-2022 Instruction Type:Provider Instructions for Treatment How to Access Health Informa tion Online using Patient Portal and 3[employer] Apps Indication:Non-smoker Start:11-Mar-2022 Instruction Type:Patient Education [facility]; [facility] Work Phone: instructions* Name Dates Details Patient Instructions Indication:BMI 40.0-44.9, adult Start:11-Sep-2022 Instruction Type:Provider Instructions for Treatment How to Access Health Informa tion Online using Patient Portal and [employer] Apps Indication:BMI 40.0-44.9, adult Start:11-Sep-2022 Instruction Type:Patient Education Patient Instructions Indication:Non-smoker Start:16-Aug-2022 Instruction Type:Provider Instructions for Treatment How to Access Health Informa tion Online using Patient Portal and 3rd [employer] Apps Indication:Non-smoker Start:16-Aug-2022 Instruction Type:Patient Education Patient Instructions Indication:BMI 40.0-44.9, adult Start:10-Jul-2022 Instruction Type:Provider Instructions for Treatment How to Access Health Informa tion Online using Patient Portal and 3[employer] Apps Indication:BMI 40.0-44.9, adult Start:10-Jul-2022 Instruction Type:Patient Education Patient Instructions Indication:Morbid obesity Start:16-May-2022 Instruction Type:Provider Instructions for Treatment How to Access Health Informa tion Online using Patient Portal and 3rd [employer] Apps Indication:Morbid obesity Start:16-May-2022 Instruction Type:Patient Education Patient Instructions Indication:Non-smoker Start:28-Mar-2022 Instruction Type:Provider Instructions for Treatment How to Access Health Informa tion Online using Patient Portal and 3[employer] Apps Indication:Non-smoker Start:28-Mar-2022 Instruction Type:Patient Education Patient Instructions Indication:Non-smoker Start:11-Mar-2022 Instruction Type:Provider Instructions for Treatment How to Access Health Informa tion Online using Patient Portal and [employer]rd [employer] Apps Indication:Non-smoker Start:11-Mar-2022 Instruction Type:Patient Education [facility]; [facility] Work Phone: Instructions* Name Dates Details Patient Instructions Indication:BMI 40.0-44.9, adult Start:11-Sep-2022 Instruction Type:Provider Instructions for Treatment How to Access Health Informa tion Online using Patient Portal and [employer]rd [employer] Apps Indication:BMI 40.0-44.9, adult Start:11-Sep-2022 Instruction Type:Patient Education Patient Instructions Indication:Non-smoker Start:16-Aug-2022 Instruction Type:Provider Instructions for Treatment How to Access Health Informa tion Online using Patient Portal and [employer]rd [employer] Apps Indication:Non-smoker Start:16-Aug-2022 Instruction Type:Patient Education Patient Instructions Indication:BMI 40.0-44.9, adult Start:10-Jul-2022 Instruction Type:Provider Instructions for Treatment How to Access Health Informa tion Online using Patient Portal and [employer] Apps Indication:BMI 40.0-44.9, adult Start:10-Jul-2022 Instruction Type:Patient Education Patient Instructions Indication:Morbid obesity Start:16-May-2022 Instruction Type:Provider Instructions for Treatment How to Access Health Informa tion Online using Patient Portal and [employer] Apps Indication:Morbid obesity Start:16-May-2022 Instruction Type:Patient Education Patient Instructions Indication:Non-smoker Start:28-Mar-2022 Instruction Type:Provider Instructions for Treatment How to Access Health Informa tion Online using Patient Portal and [employer] Apps Indication:Non-smoker Start:28-Mar-2022 Instruction Type:Patient Education Patient Instructions Indication:Non-smoker Start:11-Mar-2022 Instruction Type:Provider Instructions for Treatment How to Access Health Informa tion Online using Patient Portal and [employer] Apps Indication:Non-smoker Start:11-Mar-2022 Instruction Type:Patient Education [facility]; [facility] Work Phone: Instructions* Name Dates Details Patient Instructions Indication:Non-smoker Start:09-Oct-2022 Instruction Type:Provider Instructions for Treatment How to Access Health Informa tion Online using Patient Portal and [employer] Apps Indication:Non-smoker Start:09-Oct-2022 Instruction Type:Patient Education Patient Instructions Indication:BMI 40.0-44.9, adult Start:11-Sep-2022 Instruction Type:Provider Instructions for Treatment How to Access Health Informa tion Online using Patient Portal and [employer] Apps Indication:BMI 40.0-44.9, adult Start:11-Sep-2022 Instruction Type:Patient Education Patient Instructions Indication:Non-smoker Start:16-Aug-2022 Instruction Type:Provider Instructions for Treatment How to Access Health Informa tion Online using Patient Portal and [employer] Apps Indication:Non-smoker Start:16-Aug-2022 Instruction Type:Patient Education Patient Instructions Indication:BMI 40.0-44.9, adult Start:10-Jul-2022 Instruction Type:Provider Instructions for Treatment How to Access Health Informa tion Online using Patient Portal and [employer] Apps Indication:BMI 40.0-44.9, adult Start:10-Jul-2022 Instruction Type:Patient Education Patient Instructions Indication:Morbid obesity Start:16-May-2022 Instruction Type:Provider Instructions for Treatment How to Access Health Informa tion Online using Patient Portal and [employer]rd [employer] Apps Indication:Morbid obesity Start:16-May-2022 Instruction Type:Patient Education Patient Instructions Indication:Non-smoker Start:28-Mar-2022 Instruction Type:Provider Instructions for Treatment How to Access Health Informa tion Online using Patient Portal and [employer] Apps Indication:Non-smoker Start:28-Mar-2022 Instruction Type:Patient Education Patient Instructions Indication:Non-smoker Start:11-Mar-2022 Instruction Type:Provider Instructions for Treatment How to Access Health Informa tion Online using Patient Portal and [employer]rd [employer] Apps Indication:Non-smoker Start:11-Mar-2022 Instruction Type:Patient Education [facility]; [facility] Work Phone: Instructions* Name Dates Details Patient Instructions Indication:BMI 40.0-44.9, adult Start:14-Nov-2022 Instruction Type:Provider Instructions for Treatment How to Access Health Informa tion Online using Patient Portal and [employer] Apps Indication:BMI 40.0-44.9, adult Start:14-Nov-2022 Instruction Type:Patient Education Patient Instructions Indication:Non-smoker Start:09-Oct-2022 Instruction Type:Provider Instructions for Treatment How to Access Health Informa tion Online using Patient Portal and [employer] Apps Indication:Non-smoker Start:09-Oct-2022 Instruction Type:Patient Education Patient Instructions Indication:BMI 40.0-44.9, adult Start:11-Sep-2022 Instruction Type:Provider Instructions for Treatment How to Access Health Informa tion Online using Patient Portal and [employer] Apps Indication:BMI 40.0-44.9, adult Start:11-Sep-2022 Instruction Type:Patient Education Patient Instructions Indication:Non-smoker Start:16-Aug-2022 Instruction Type:Provider Instructions for Treatment How to Access Health Informa tion Online using Patient Portal and [employer] Apps Indication:Non-smoker Start:16-Aug-2022 Instruction Type:Patient Education Patient Instructions Indication:BMI 40.0-44.9, adult Start:10-Jul-2022 Instruction Type:Provider Instructions for Treatment How to Access Health Informa tion Online using Patient Portal and [employer] Apps Indication:BMI 40.0-44.9, adult Start:10-Jul-2022 Instruction Type:Patient Education Patient Instructions Indication:Morbid obesity Start:16-May-2022 Instruction Type:Provider Instructions for Treatment How to Access Health Informa tion Online using Patient Portal and [employer] Apps Indication:Morbid obesity Start:16-May-2022 Instruction Type:Patient Education Patient Instructions Indication:Non-smoker Start:28-Mar-2022 Instruction Type:Provider Instructions for Treatment How to Access Health Informa tion Online using Patient Portal and [employer] Apps Indication:Non-smoker Start:28-Mar-2022 Instruction Type:Patient Education Patient Instructions Indication:Non-smoker Start:11-Mar-2022 Instruction Type:Provider Instructions for Treatment How to Access Health Informa tion Online using Patient Portal and [employer] Apps Indication:Non-smoker Start:11-Mar-2022 Instruction Type:Patient Education [facility]; [facility] Work Phone: Instructions* Name Dates Details Patient Instructions Indication:BMI 40.0-44.9, adult Start:13-Mar-2023 Instruction Type:Provider Instructions for Treatment How to Access Health Informa tion Online using Patient Portal and [employer] Apps Indication:BMI 40.0-44.9, adult Start:13-Mar-2023 Instruction Type:Patient Education Patient Instructions Indication:BMI 40.0-44.9, adult Start:14-Nov-2022 Instruction Type:Provider Instructions for Treatment How to Access Health Informa tion Online using Patient Portal and [employer] Apps Indication:BMI 40.0-44.9, adult Start:14-Nov-2022 Instruction Type:Patient Education Patient Instructions Indication:Non-smoker Start:09-Oct-2022 Instruction Type:Provider Instructions for Treatment How to Access Health Informa tion Online using Patient Portal and [employer] Apps Indication:Non-smoker Start:09-Oct-2022 Instruction Type:Patient Education Patient Instructions Indication:BMI 40.0-44.9, adult Start:11-Sep-2022 Instruction Type:Provider Instructions for Treatment How to Access Health Informa tion Online using Patient Portal and [employer] Apps Indication:BMI 40.0-44.9, adult Start:11-Sep-2022 Instruction Type:Patient Education Patient Instructions Indication:Non-smoker Start:16-Aug-2022 Instruction Type:Provider Instructions for Treatment How to Access Health Informa tion Online using Patient Portal and [employer]rd [employer] Apps Indication:Non-smoker Start:16-Aug-2022 Instruction Type:Patient Education Patient Instructions Indication:BMI 40.0-44.9, adult Start:10-Jul-2022 Instruction Type:Provider Instructions for Treatment How to Access Health Informa tion Online using Patient Portal and [employer] Apps Indication:BMI 40.0-44.9, adult Start:10-Jul-2022 Instruction Type:Patient Education Patient Instructions Indication:Morbid obesity Start:16-May-2022 Instruction Type:Provider Instructions for Treatment How to Access Health Informa tion Online using Patient Portal and [employer] Apps Indication:Morbid obesity Start:16-May-2022 Instruction Type:Patient Education Patient Instructions Indication:Non-smoker Start:28-Mar-2022 Instruction Type:Provider Instructions for Treatment How to Access Health Informa tion Online using Patient Portal and [employer] Apps Indication:Non-smoker Start:28-Mar-2022 Instruction Type:Patient Education Patient Instructions Indication:Non-smoker Start:11-Mar-2022 Instruction Type:Provider Instructions for Treatment How to Access Health Informa tion Online using Patient Portal and [employer] Apps Indication:Non-smoker Start:11-Mar-2022 Instruction Type:Patient Education [facility]; [facility] Work Phone: reason for referral (narrative)No reason for [facility] Work [facility]: Reason for visit Narrative* Imaging (Routine) - Pending Review Specialty Diagnoses / Procedures Referred By Edi cook Referred To Contact Radiology Diagnoses Other abnormal glucose Procedures CT cardiac scoring wo IV contrast Lesli Márquez, [address] [address] Phone: tel: fax: Referral ID Status Reason Start Date Expiration Date Visits Requested Visits Authorized [id number] Pending Review Perform Procedure 11/16/2024 11/16/2025 1 1 [facility] Work Phone: Chief Complaint and Reason for Visit Chief Complaint ABD Chief Complaint ABD LIVER LESION Chief Complaint UNEQUAL BP IN UPPER EXTREMITIES nosebleed, HTN, nausea Chief Complaint OSTEPOROSIS Chief Complaint SCREENING ABN MAMM Chief Complaint Admit Date HEPATIC LESION February 10, 2025 4:4 0pm Dilation of Thoracic Aorta February 11, 2 025 8:24am Reason for Visit Admit Date Thoracic aortic aneurysm February 11 8:24am Family History No Family History Records Found Relationship Condition Age at Onset Recorded Date/T burak mother Hypertension Unknown father Hypertension Unknown Heart disease Unknown Hyperlipidemia Unknown sister Hypertension Unknown grandfather Hypertension Unknown Unknown Family Member Name Dates Details Depression Comments:Paternal Great Gran dmother Status:Active Diabetes Mellitus Comments:Mother, Maternal Gr andmother, Paternal Grandmother Status:Active Heart Disease Comments:Father Status:Active Hypercholesterolemia Comments:Father, Paternal Gr andfather Status:Active Hypertension Comments:Mother, Father Status:Active Osteoporosis Comments:Maternal Grandmothe r Status:Active Unknown Family Member Name Dates Details Depression Comments:Paternal Great Gran dmother Status:Active Diabetes Mellitus Comments:Mother, Maternal Gr andmother, Paternal Grandmother Status:Active Heart Disease Comments:Father Status:Active Hypercholesterolemia Comments:Father, Paternal Gr andfather Status:Active Hypertension Comments:Mother, Father Status:Active Osteoporosis Comments:Maternal Grandmothe r Status:Active Unknown Family Member Name Dates Details Depression Comments:Paternal Great Gran dmother Status:Active Diabetes Mellitus Comments:Mother, Maternal Gr andmother, Paternal Grandmother Status:Active Heart Disease Comments:Father Status:Active Hypercholesterolemia Comments:Father, Paternal Gr andfather Status:Active Hypertension Comments:Mother, Father Status:Active Osteoporosis Comments:Maternal Grandmothe r Status:Active Unknown Family Member Name Dates Details Depression Comments:Paternal Great Gran dmother Status:Active Diabetes Mellitus Comments:Mother, Maternal Gr andmother, Paternal Grandmother Status:Active Heart Disease Comments:Father Status:Active Hypercholesterolemia Comments:Father, Paternal Gr andfather Status:Active Hypertension Comments:Mother, Father Status:Active Osteoporosis Comments:Maternal Grandmothe r Status:Active Unknown Family Member Name Dates Details Depression Comments:Paternal Great Gran dmother Status:Active Diabetes Mellitus Comments:Mother, Maternal Gr andmother, Paternal Grandmother Status:Active Heart Disease Comments:Father Status:Active Hypercholesterolemia Comments:Father, Paternal Gr andfather Status:Active Hypertension Comments:Mother, Father Status:Active Osteoporosis Comments:Maternal Grandmothe r Status:Active Unknown Family Member Name Dates Details Depression Comments:Paternal Great Gran dmother Status:Active Diabetes Mellitus Comments:Mother, Maternal Gr andmother, Paternal Grandmother Status:Active Heart Disease Comments:Father Status:Active Hypercholesterolemia Comments:Father, Paternal Gr andfather Status:Active Hypertension Comments:Mother, Father Status:Active Osteoporosis Comments:Maternal Grandmothe r Status:Active Unknown Family Member Name Dates Details Depression Comments:Paternal Great Gran dmother Status:Active Diabetes Mellitus Comments:Mother, Maternal Gr andmother, Paternal Grandmother Status:Active Heart Disease Comments:Father Status:Active Hypercholesterolemia Comments:Father, Paternal Gr andfather Status:Active Hypertension Comments:Mother, Father Status:Active Osteoporosis Comments:Maternal Grandmothe r Status:Active Unknown Family Member Name Dates Details Depression Comments:Paternal Great Gran dmother Status:Active Diabetes Mellitus Comments:Mother, Maternal Gr andmother, Paternal Grandmother Status:Active Heart Disease Comments:Father Status:Active Hypercholesterolemia Comments:Father, Paternal Gr andfather Status:Active Hypertension Comments:Mother, Father Status:Active Osteoporosis Comments:Maternal Grandmothe r Status:Active Unknown Family Member Name Dates Details Depression Comments:Paternal Great Gran dmother Status:Active Diabetes Mellitus Comments:Mother, Maternal Gr andmother, Paternal Grandmother Status:Active Heart Disease Comments:Father Status:Active Hypercholesterolemia Comments:Father, Paternal Gr andfather Status:Active Hypertension Comments:Mother, Father Status:Active Osteoporosis Comments:Maternal Grandmothe r Status:Active Unknown Family Member Name Dates Details Depression Comments:Paternal Great Gran dmother Status:Active Diabetes Mellitus Comments:Mother, Maternal Gr andmother, Paternal Grandmother Status:Active Heart Disease Comments:Father Status:Active Hypercholesterolemia Comments:Father, Paternal Gr andfather Status:Active Hypertension Comments:Mother, Father Status:Active Osteoporosis Comments:Maternal Grandmothe r Status:Active Unknown Family Member Name Dates Details Depression Comments:Paternal Great Gran dmother Status:Active Diabetes Mellitus Comments:Mother, Maternal Gr andmother, Paternal Grandmother Status:Active Heart Disease Comments:Father Status:Active Hypercholesterolemia Comments:Father, Paternal Gr andfather Status:Active Hypertension Comments:Mother, Father Status:Active Osteoporosis Comments:Maternal Grandmothe r Status:Active Unknown Family Member Name Dates Details Depression Comments:Paternal Great Gran dmother Status:Active Diabetes Mellitus Comments:Mother, Maternal Gr andmother, Paternal Grandmother Status:Active Heart Disease Comments:Father Status:Active Hypercholesterolemia Comments:Father, Paternal Gr andfather Status:Active Hypertension Comments:Mother, Father Status:Active Osteoporosis Comments:Maternal Grandmothe r Status:Active Unknown Family Member Name Dates Details Depression Comments:Paternal Great Gran dmother Status:Active Diabetes Mellitus Comments:Mother, Maternal Gr andmother, Paternal Grandmother Status:Active Heart Disease Comments:Father Status:Active Hypercholesterolemia Comments:Father, Paternal Gr andfather Status:Active Hypertension Comments:Mother, Father Status:Active Osteoporosis Comments:Maternal Grandmothe r Status:Active Unknown Family Member Name Dates Details Depression Comments:Paternal Great Gran dmother Status:Active Diabetes Mellitus Comments:Mother, Maternal Gr andmother, Paternal Grandmother Status:Active Heart Disease Comments:Father Status:Active Hypercholesterolemia Comments:Father, Paternal Gr andfather Status:Active Hypertension Comments:Mother, Father Status:Active Osteoporosis Comments:Maternal Grandmothe r Status:Active Unknown Family Member Name Dates Details Depression Comments:Paternal Great Gran dmother Status:Active Diabetes Mellitus Comments:Mother, Maternal Gr andmother, Paternal Grandmother Status:Active Heart Disease Comments:Father Status:Active Hypercholesterolemia Comments:Father, Paternal Gr andfather Status:Active Hypertension Comments:Mother, Father Status:Active Osteoporosis Comments:Maternal Grandmothe r Status:Active Relationship Condition Age at Onset Recorded Date/T burak mother Hypertension Unknown Polyp of colon Unknown Cerebrovascular accident (CVA) Unknown father Hypertension Unknown Heart disease Unknown Hyperlipidemia Unknown Myocardial infarction Unknown sister Hypertension Unknown grandfather Hypertension Unknown Advance Directives No Advanced Directives Records Found Advance Directive Response Recorded Date/ Time Living Will No March 02, 2022 7 :37am Power of Lead Android Developer No March 02, 2022 7:37am Advance Directive Response Recorded Date/ Time Living Will No August 14 1:46pm Power of Lead Android Developer No August 14, 2022 1:46pm Advance Directive Response Recorded Date/ Time Living Will No August 14 12:46pm Power of Lead Android Developer No August 14, 2022 12:46pm Summary Purpose Additional Source Comments Goals (unrecognized section and content) Goals may be documented in a n alternate sectionGoals may be documented in an alternate sectionGoals may be documented in an alternate sectionGoals may be documented in an alternate sectionGoals may be documented in an alternate sectionGoals may be documented in an alternate sectionGoals may be documented in an alternate sectionGoals may be documented in an alternate sectionGoals may be documented in an alternate section INFORMATION SOURCE (unrecogn ized section and content) DATE CREATED AUTHOR 11/14/2022 [facility] DATE CREATED AUTHOR AUTHOR'S ORGANIZ ATION 10/04/2023 [facility] DATE CREATED AUTHOR AUTHOR'S ORGANIZ ATION 01/02/2025 [facility] DATE CREATED AUTHOR AUTHOR'S ORGANIZ ATION 04/07/2025 [facility] Care Teams (unrecognized sec tion and content) Team Status: Active Member Role Status Dates Dr. Lesli Márquez DO Family Provider Active Dr. Lesli Márquez DO Primary Care Provider Active Team Status: Inactive Member Role Status Dates Dr. Lesli Márquez DO Primary Care Pr ovider, Attending Provider, Referring Provider Active Team Status: Active Member Role Status Dates Dr. Lesli Márquez DO Primary Care Pr ovider, Attending Provider, Referring Provider Active Transport Coordinator Relationship Specialty Start Date End Date Lesli Márquez DO [address] [address] PCP - General Internal Medicine 12/15/24 Team Status: Active Member Role Status Dates Dr. Lesli Márquez DO Primary Care Provider Active Team Status: Inactive Member Role Status Dates Dr. Lesli Márquez DO Primary Care Provider Active Start: November 06, 2024 End: November 06, 2024 Dr. Lesli Márquez DO Attending Provider Active Start: November 06, 2024 End: November 06, 2024 Dr. Lesli Márquez DO Referring Provider Active Start: November 06, 2024 End: November 06, 2024 Team Status: Inactive Member Role Status Dates Dr. Lesli Márquez DO Primary Care Provider Active Start: February 10, 2025 End: February 10, 2025 Dr. Lesli Márquez DO Attending Provider Active Start: February 10, 2025 End: February 10, 2025 Dr. Lesli Márquez DO Referring Provider Active Start: February 10, 2025 End: February 10, 2025 Team Status: Inactive Member Role Status Dates Dr. Lesli Márquez DO Primary Care Provider Active Start: February 11, 2025 End: February 11, 2025 Dr. Lesli Márquez DO Referring Provider Active Start: February 11, 2025 End: February 11, 2025 BYRON Tovar Attending Provider Active Star t: February 11, 2025 End: February 11, 2025 Team Status: Inactive Member Role Status Dates Dr. Lesli Márquez DO Primary Care Provider Active Start: March 19, 2025 End: March 19, 2025 Dr. Lesli Márquez DO Attending Provider Active Start: March 19, 2025 End: March 19, 2025 Dr. Lesli Márquez DO Referring Provider Active Start: March 19, 2025 End: March 19, 2025 FOR RECORDS PERTAINING TO PATIENTS WHO ARE OR HAVE BEEN ENROLLED IN A CHEMICAL DEPENDENCY/SUBSTANCEABUSE PROGRAM, SOME INFORMATION MAY BE OMITTED. This clinical summary was aggregated from multiple sources. Caution should be exercised in using it in the provision of clinical care. This summary normalizes information from multiple sources, and as a consequence, information in this document may materially change the coding, format and clinical context of patient data. In addition, data may be omitted in some cases. CLINICAL DECISIONS SHOULD BE BASED ON THE PRIMARY CLINICAL RECORDS. [facility] [employer] provides no warranty or guarantee of the accuracy or completeness of information in this document.
== END | disposition home or self-care (01) ==
LOC: RAD 08:44
PROVIDERS: PCP Internal Medicine; Referring Provider Internal Medicine; Visit Provider Internal Medicine
DX: D47.2 Monoclonal gammopathy (principal)
CPT/HCPCS: 77075

== ENCOUNTER → 2025-07-28 | Outpatient (CLI) | payer OTHER, SELFPAY ==
--- NOTE | 2025-07-28 17:11 | CT_ITS ---
PROCEDURE: CTA CHEST W/WO CONTRAST 07/28/2025 REASON FOR EXAM: ASCENDING THORACIC AORTIC ANEURYSM TECHNIQUE: Procedure Code: [id number] Modality: CT Procedure: CTA CHEST W/WO CONTRAST Multiplanar Sagittal and Coronal images were obtained. CONTRAST: Isovue 370 VOLUME: 100 mL One or more dose reduction techniques were used (e.g., Automated exposure control, adjustment of the mA and/or kV according to patient size, use of iterative reconstruction technique). RADIATION DOSE SUMMARY: CTDlvol: 33.59 mGy DLP: 765.77 mGycm COMPARISON: None. FINDINGS: Lower neck:The thyroid gland is normal. There is no supraclavicular lymphadenopathy. Mediastinum:No abnormal masses or lymphadenopathy. Heart and thoracic aorta:The heart size is upper limits of normal. There is no pericardial effusion. There is no calcific vascular disease of the thoracic aorta or coronary arteries identified. There is no evidence of thoracic aortic aneurysm or aortic dissection. The mid ascending thoracic aorta measures 3.6 cm in diameter, within normal limits. The mid descending thoracic aorta measures 2.3 cm in diameter, within normal limits. The main pulmonary artery measures 2.2 cm in diameter, within normal limits. Esophagus:Normal. Upper Abdomen:There is an area of hyperdensity mixed with a an area of low- density in the liver dome measuring 2.3 x 1.8 cm, consistent with a hemangioma. Chest wall:The visualized soft tissues of the chest wall appear unremarkable. There is no axillary lymphadenopathy. There is mild multilevel degenerative disc disease of the thoracic spine. There is mild dextroscoliosis of the thoracic spine. Lungs, airways and pleura: There is no significant interstitial or alveolar lung disease. There are no pulmonary nodules. There are no pleural effusions. CT/CTA Chest W/WO Contrast IMPRESSION: 1. The thoracic aorta is normal. 2. Other findings as noted. No evidence of acute cardiopulmonary pathology. Reading Location: [place] [id number]
== END | disposition home or self-care (01) ==
LOC: CT 17:09
PROVIDERS: PCP Internal Medicine; Referring Provider Physician Assistant; Visit Provider Physician Assistant
DX: I71.20 Thoracic aortic aneurysm, without rupture, unspecified (principal)
CPT/HCPCS: 71275; Q9967; A4216

== ENCOUNTER → 2025-08-06 | Outpatient (CLI) | payer OTHER, SELFPAY ==
--- OUTSIDE RECORDS SUMMARY | 2025-08-06 10:20 | XMS RPT_ITS | CCD ---
Author Organization [facility] Care Team Providers Care Luggage Liner Name Role Phone Lesli Márquez DO Unavailable Melo RN, Octavia Unavailable Unavailable Erick ARRIOLA, Violet Villafuerte Unavailable Unavailable Category Specialist, System Unavailable Unavailable Heena Maciel Unavailable Unavailable Michael RESIDENTIAL REAL ESTATE SALES MANAGER, Saleem Unavailable Unavailable Unavailable Unavailable Gravius STONEMASON, Sofiya Unavailable Unavailable Slarb RESIDENTIAL REAL ESTATE SALES MANAGER, Alycia Unavailable Unavailable [place] STONEMASON, Kayela Unavailable Unavailable Lesli Márquez DO Unavailable Andrea Cordero MD Unavailable Lesli Márquez DO Attending Unavailable Lesli Márquez DO Unavailable Unavailable Unavailable [facility] Attending Unavailable LESLI MÁRQUEZ Primary Care Unavailable Lesli Márquez DO Primary Care Provider [phone] LESLI MÁRQUEZ Referring Unavailable LESLI MÁRQUEZ Primary Care Unavailable Dr. Lesli Márquez DO Primary Care Provider Dr. Lesli Márquez DO Attending Provider [phone] Dr. Lesli Márquez DO Referring Provider Gardenia Christensen Attending Provider Dr. Lesli Márquez DO Primary Care Provider Dr. Lesli Márquez DO Attending Provider [phone] Dr. Lesli Márquez DO Referring Provider Lesli Márquez Primary Care Unavailable Gardenia Dawson Attending Unavailable Lesli Márquez Referring Unavailable Darinel, Lesli Primary Care Unavailable Darinel, Lesli Attending Unavailable Darinel, Lesli Referring Unavailable Darinel, Lesli Primary Care Unavailable Darinel, Lesli Attending Unavailable Darinel, Lesli Referring Unavailable Darinel, Lesli Attending Unavailable Darinel, Lesli Referring Unavailable Darinel, Lesli Primary Care Unavailable Darinel, Lesli Primary Care Unavailable Darinel, Lesli Attending Unavailable Darinel, Lesli Referring Unavailable Dawson, Gardenia Attending Unavailable Dawson, Gardenia Referring Unavailable Darinel, Lesli Primary Care Unavailable Allergies Allergy Classification Reported Allergen(s) Allergy Type Date of Onset Reaction(s) Facility (20 sources) Ketorolac; Translations: [TORADOL ORAL, 10MG (Oral Tablet)] Drug Allergy 2 Other [facility] Work Phone: Comment on above: kidneys shut down SHUTS MY KIDNEYS DO WN (20 sources) beef allergenic extract Drug Allergy [facility] Work Phone: Comment on above: Nausea (1 source) ALLERGIES NOT ON FILE; Translations: [ALLERGIES NOT ON FILE] Propensity to adverse reactions (disorder) [facility] 2 Repository (3 sources) Latex Allergy to substance 5 Rash [facility] (3 sources) Beef Containing Products Allergy to substance 4 [facility] Comment on above: ITCHING, SWELLING, N /V/D (1 source) Ketorolac Drug Allergy 4 [facility] Repository (1 source) Latex Drug allergy (disorder) 5 [facility] Repository (1 source) Beef Containing Products Drug allergy (disorder) 4 [facility] Repository Medications Current Medications Medication Drug Class(es) Dates Sig (Normalized) Sig (Original) amLODIPine 10 mg oral tablet (3 sources) Dihydropyridine Calcium Channel Tanika Start: 02-11-2025 take 1 tablet by mouth once daily Amlodipine 10 mg tablet Active 10 mg PO daily February 11, 2025 12:00am escitalopram 10 mg oral tablet (3 sources) Serotonin Reuptake Inhibitor Start: 03-25-2024 take 1 tablet by mouth once daily Escitalopram Oxalate 10 mg tablet Active 10 mg PO DAILY March 25, 2024 12:00am Fluticasone Furoate-Vilanterol (3 sources) Start: 02-11-2025 Fluticasone Furoate-Vilantero l (Breo Ellipta) 50-25 mcg/dose blister with device Active INHALATION February 11, 2025 12:00am melatonin 3 mg oral tablet (3 sources) Start: 02-11-2025 take 1 tablet by mouth at bedtime as needed Melatonin 3 mg tablet Active 3 mg PO BEDTIME as needed February 11, 2025 12:00am MITOCORE (3 sources) Start: 04-09-2024 MITOCORE Active 4 {tbl} [...] for 0 days Refills: 0 Ordered: 10-Jul-2022 Nguyen STONEMASON, Kayela Active MULTIVITAMIN (Or al Liquid) for 0 days Refills: 0 Ordered: 16-May-2022 Gravius STONEMASON, Sofiya Active MULTIVITAMIN (Or al Liquid) for 0 days Refills: 0 Ordered: 11-Mar-2022 [place] RESIDENTIAL REAL ESTATE SALES MANAGER, Alycia Active MULTIVITAMIN (Or al Liquid) for [...] pantoprazole 40 mg delayed release oral tablet (3 sources) Proton Pump Inhibitor Start: 03-25-2024 take 1 tablet by mouth at bedtime Pantoprazole 40 mg tablet,delayed release (DR/EC) Active 40 mg PO AT BEDTIME March 25, 2024 12:00am traZODone hydrochloride 50 mg oral tablet (3 sources) Serotonin Reuptake Inhibitor Start: 02-11-2025 take [...] 28-Mar-2022 Discontinued Comments: This order discontinued per -. Comment on above: use under axilla / [...] Discontinued Comments: This order discontinued per -. take 1 capsule by mo [facility] three times daily CALCIUM & MAGNESIUM CARBONATES, 311-232M G (Oral Capsule) 1 tid for 0 days Refills: 0 Ordered: 20-Jul-2009 Octavia Alejo RN Active Comment on above: This order discontin ued per -. ergocalciferol 1.25 mg oral capsule (20 sources) Provitamin D2 Compound Start: 0 End: 2 take 1 tablet by mouth every week, then take 1 tablet by mouth every week Drisdol 1.25 MG (98239 UT) Oral Capsule tad Capsule weekly for 0 days Quantity: 8 {Capsule} Refills: 4 Ordered: 11-Mar-2022 Alycia Maldonado LPN Start : 24-May-2010 End : 11-Mar-2022 Inactive Comments: 1 tab 2 x week for 4 weeks then 1 tab weekly End: 08-16-2022 take 1 tablet by mouth every week ERGOCALCIFEROL, 40795MH (PO Tab) 1 qo week for 0 days Refills: 0 Ordered: 16-Aug-2022 Saleem Rodriguez LPN End : 16-Aug-2022 Discontinued Comments: This order discontinued per -. Comment on above: 1 tab 2 x week for 4 weeks then 1 tab weekly This order discontin ued per [facility]. 168 hr ethinyl estradiol 0.16147 mg/hr / norelgestromin 0.85248 mg/hr transdermal system (20 sources) Progestin, Estrogen Start: 008 End: 022 apply 1 dose transdermal route every week ORTHO EVRA, 150-20MCG/24HR (Transdermal Patch Weekly) 1 Patch Weekly q week for 0 days Refills: 0 Ordered: 11-Mar-2022 Alycia Maldonado LPN Start : 27-Jul-2008 End : 11-Mar-2022 Discontinued Comments: This order discontinued per [facility]. Comment on above: This order discontin ued per [facility]. fluconazole 150 mg oral tablet (20 sources) Azole Antifungal Start: 009 End: take 1 tablet by mouth once daily DIFLUCAN, 150MG (Oral Tablet) 1 (one) Tablet Daily x 1 for 0 days Quantity: 1 {Tablet} Refills: 0 Ordered: 11-Jan-2009 Octavia Alejo RN Start : 11-Jan-2009 End : 20-Jul-2009 Inactive ibuprofen 400 mg oral tablet (20 sources) Nonsteroidal Anti-inflammatory Drug Start: take 1 tablet by mouth every six hours MOTRIN, 400MG (Oral Tablet) 1 (one) Tablet Q 6 hr for 0 days Refills: 0 Ordered: 24-May-2010 Octavia Alejo RN Start : 28-Dec-2008 Inactive lisinopril 10 mg oral tablet (20 sources) Angiotensin Converting Enzyme Inhibitor Start: 024 [...] Quantity: 30 {Tablet} Refills: 0 Ordered: 24-Jun-2023 Lesli Márquez DO, DO, Kathleen Start : 24-Jun-2023 Active Start: 08-14-2022 End: 04-09-2024 take 1 tablet by mouth once daily Lisinopril 10 mg tablet Discontinued 10 mg PO DAILY 30 0 August 14, 2022 12:00am April 09, 2024 [...] Refills: 0 Ordered: 11-Mar-2022 Alycia Maldonado LPN Start : 27-Jul-2008 End : 11-Mar-2022 Discontinued Comments: This order discontinued per [facility]. Start: 07-27-2008 FORTEO, 750MCG /3ML (Subcutaneous Solution) 1 Solution qd for 0 days Refills: 0 Ordered: 08-Aug-2010 Octavia Alejo RN Start : 27-Jul-2008 Active Comment on above: This order discontin ued per [facility]. Tyrosine-Acetylcy steine (Adrenamax) 400-133 mg capsule (3 sources) Start: 4 End: 5 take 1 [...] first Aortic; peripheral; and visceral artery aneurysms (6 sources) Aneurysm of thoracic aorta; Translations: [Thoracic aortic aneurysm (TAA)] 02-11-2025 Chronic Asthma (3 sources) Asthma; Translations: [Unspecified asthma, uncomplicated] 02-11-2025 Chronic Coronary atherosclerosis and other heart disease (16 sources) Coronary atherosclerosis and other heart disease Diabetes mellitus without complication (4 sources) Abnormal glucose level; Translations: [Other abnormal glucose] Onset: 12-25-2024 12-25-2024 Episodic Diseases of white blood cells (20 sources) Leukocytosis; Translations: [Leukocytosis, unspecified type] 03-28-2022 Chronic Disorders of lipid metabolism (20 sources) Hyperlipidemia; Translations: [Hyperlipidemia] 07-25-2015 Chronic Comment on above: diet exercise Esophageal disorders (3 sources) Gastric reflux; Translations: [Gastro-esophageal reflux disease without esophagitis] 04-15-2024 Chronic Essential hypertension (20 sources) Elevated [...] Neoplasms of unspecified nature or uncertain behavior (1 source) Monoclonal gammopathy; Translations: [Monoclonal gammopathy] Onset: 04-17-2025 Chronic Nutritional deficiencies (20 sources) Vitamin D [...] above: fr now Other upper respiratory disease (7 sources) Anterior epistaxis; Translations: [Epistaxis] 08-22-2022 Episodic [...] unspecified type Unclassified (4 sources) Nutritional counseling Unclassified (1 source) Thoracic aortic aneurysm, without rupture, unspecified; Translations: [Thoracic aortic aneurysm, without rupture, unspecified] Onset: 07-28-2025 Viral infection (20 sources) Herpes zoster; Translations: [Shingles] Resolved: 03-28-2022 03-11-2022 Episodic Past or Other Problems Problem Classification Problem Date Documented Date Episodic/Chronic Acute bronchitis (20 sources) Acute bronchitis; Translations: [Acute bronchitis] Resolved: 05-24-2010 03-05-2022 Episodic Other hematologic conditions (1 source) Abnormality of globulin; Translations: [Abnormality of globulin] Onset: 12-01-2024 Episodic Unclassified (20 sources) Adenoidectomy; Translations: [Adenoidectomy] [...] Test Name Value Interpretation Reference Range Facility CTA Chest W/WO Contraston CTA Chest W/WO Contrast [facility] Imaging Services [address] [place] [address] [id number] CTA Chest W/WO Contrast MR#: [id number] Acct: [id number] Name: ALIX PALMER Rep #: [id number] : 1975 F 49 From: Glenn Vallejo MD PCP: Dr. Lesli Márquez, DO Status: [facility] CL Study: CTA Chest W/WO Contrast Date of Exam: 07/28/25 Exam# [id number] Ordering Dr: Gardenia Dawson PROCEDURE: CTA CHEST W/WO CONTRAST 07/28/2025 REASON FOR EXAM: ASCENDING THORACIC AORTIC ANEURYSM TECHNIQUE: Procedure Code: [id number] Modality: CT Procedure: CTA CHEST W/WO CONTRAST Multiplanar Sagittal and Coronal images were obtained. CONTRAST: Isovue 370 VOLUME: 100 mL One or more dose reduction techniques were used (e.g., Automated exposure control, adjustment of the mA and/or kV according to patient size, use of iterative reconstruction technique). RADIATION DOSE SUMMARY: CTDlvol: 33.59 mGy DLP: 765.77 mGycm COMPARISON: None. FINDINGS: Lower neck:The thyroid gland is normal. There is no supraclavicular lymphadenopathy. Mediastinum:No abnormal masses or lymphadenopathy. Heart and thoracic aorta:The heart size is upper limits of normal. There is no pericardial effusion. There is no calcific vascular disease of the thoracic aorta or coronary arteries identified. There is no evidence of thoracic aortic aneurysm or aortic dissection. The mid ascending thoracic aorta measures 3.6 cm in diameter, within normal limits. The mid descending thoracic aorta measures 2.3 cm in diameter, within normal limits. The main pulmonary artery measures 2.2 cm in diameter, within normal limits. Esophagus:Normal. Upper Abdomen:There is an area of hyperdensity mixed with a an area of low-density in the liver dome measuring 2.3 x 1.8 cm, consistent with a hemangioma. Chest wall:The visualized soft tissues of the chest wall appear unremarkable. There is no axillary lymphadenopathy. There is mild multilevel degenerative disc disease of the thoracic spine. There is mild dextroscoliosis of the thoracic spine. Lungs, airways and pleura: There is no significant interstitial or alveolar lung disease. There are no pulmonary nodules. There are no pleural effusions. CT/CTA Chest W/WO Contrast IMPRESSION: 1. The thoracic aorta is normal. 2. Other findings as noted. No evidence of acute cardiopulmonary pathology. Reading Location: [place] [address] CC: BYRON Tovar; Dr. Lesli Márquez DO Cocoa Butter Filter Operator: Signed Normal [facility] Bone Survey Comp(Axial Appen d)on 04-12-2025 Bone Survey Comp(Axial Append) [facility] Imaging Services [address] [place] [address] [id number] Bone Survey Comp(Axial Append) MR#: [id number] Acct: [id number] Name: ALIX PALMER Rep #: [id number] : 1975 F 49 From: Adolfo valencia MD PCP: Dr. Lesli Márquez DO Status: REG CLI Study: Bone Survey Comp(Axial Append) Date of Exam: 0 04/12/25 Exam# [id number] Ordering Dr: Lesli Márquez DO PROCEDURE: BONE SURVEY COMP(AXIAL APPEND) 04/12/2025 REASON FOR EXAM: MONOCLONAL GAMMOPATHIES F, age 49 y/o . TECHNIQUE: Skeletal survey. COMPARISON: None. FINDINGS: No lytic or blastic aggressive bone lesion is identified. No fracture or dislocation is seen. No periosteal reaction is noted. Mild diffuse spondylosis. RAD/Bone Survey Comp(Axial Append) IMPRESSION: No suspicious bone lesion is identified. [facility] CC: Dr. Lesli Márquez, DO Cocoa Butter Filter Operator: Signed Normal [facility] Hepatitis B Core Ab Totalon 03-23-2025 HEP B CORE,TOT Negative Normal Negative [facility] Comment on above: Result Comment: Perf ormed at: - [facility] [address] [id number] Brim And Crown Presser: Ramon Bell PhD, Phone: [phone] Performed By: #### L 500.4100, L3100.3450, L506.1000, L3600.4000 #### [facility] Laboratory [address] [place], [place], [facility] KAVON + Protein Elect, Serumon 03-23-2025 Albumin [Mass/Vol] 3.3 g/dL Normal 2.9-4.4 [facility] Comment on above: Order Comment: N Performed By: #### L 500.4100, L3100.3450, L506.1000, L3600.4000 #### [facility] Laboratory [address] [place], [address] Albumin/Globulin [Mass ratio] 0.9 {ratio} Normal 0.7-1.7 [facility] Comment on above: Order Comment: N Performed By: #### L 500.4100, L3100.3450, L506.1000, L3600.4000 #### [facility] Laboratory [address] [facility] [address] [id number] 0.3 g/dL Normal 0.0-0.4 [facility] Comment on above: Order Comment: N Performed By: #### L 500.4100, L3100.3450, L506.1000, L3600.4000 #### [facility] [address] [place], [address] [id number] 0.8 g/dL Normal 0.4-1.0 [facility] Comment on above: Order Comment: N Performed By: #### L 500.4100, L3100.3450, L506.1000, L3600.4000 #### [facility] [address] [place], [address] BETA GLOBULIN 1.3 g/dL Normal 0.7-1.3 [facility] Comment on above: Order Comment: N Performed By: #### L 500.4100, L3100.3450, L506.1000, L3600.4000 #### [facility] [address] [place], [address] GAMMA GLOBULIN 1.7 g/dL Normal 0.4-1.8 [facility] Comment on above: Order Comment: N Performed By: #### L 500.4100, L3100.3450, L506.1000, L3600.4000 #### [facility] [address] [place], [address] Globulin (S) [Mass/Vol] 4.0 g/dL Abnormal 2.2-3.9 [facility] Comment on above: Order Comment: N Performed By: #### L 500.4100, L3100.3450, L506.1000, L3600.4000 #### [facility] [address] [place], [address] KAVON RESULT,S Comment Normal . [facility] Comment on above: Order Comment: N Result Comment: No m onoclonality detected. Performed By: #### L 500.4100, L3100.3450, L506.1000, L3600.4000 #### [facility] [address] [place], [address] IMMUNOGLOB A QN 380 mg/dL High 87-352 [facility] Comment on above: Order Comment: N Performed By: #### L 500.4100, L3100.3450, L506.1000, L3600.4000 #### [facility] [address] [place], [address] IMMUNOGLOB G QN 1875 mg/dL High 586-1602 [facility] Comment on above: Order Comment: N Performed By: #### L 500.4100, L3100.3450, L506.1000, L3600.4000 #### [facility] [address] [place], [address] IMMUNOGLOB M QN 109 mg/dL Normal 26-217 [facility] Comment on above: Order Comment: N Performed By: #### L 500.4100, L3100.3450, L506.1000, L3600.4000 #### [facility] [address] [place], [address] M-Terrance Not Observed Normal Not Observed [facility] Comment on above: Order Comment: N Performed By: #### L 500.4100, L3100.3450, L506.1000, L3600.4000 #### [facility] [address] [place], [address] NOTE: Comment Normal . [facility] Comment on above: Order Comment: N Result Comment: Prot ein electrophoresis scan will follow via computer, mail, or screen printer delivery. Performed By: #### L 500.4100, L3100.3450, L506.1000, L3600.4000 #### [facility] Laboratory [address] [place], [address] Protein [Mass/Vol] 7.3 g/dL Normal 6.0-8.5 [facility] Comment on above: Order Comment: N Performed By: #### L 500.4100, L3100.3450, L506.1000, L3600.4000 #### [facility] [address] [place], [address] [place] Lambda Light Chainson 03-23-2025 FR KAPPA LT CHN 30.8 mg/L Abnormal 3.3-19.4 [facility] Comment on above: Performed By: #### L 500.4100, L3100.3450, L506.1000, L3600.4000 #### [facility] [address] [place], [address] FR LAMBDA LT CH 20.6 mg/L Normal 5.7-26.3 [facility] Comment on above: Performed By: #### L 500.4100, L3100.3450, L506.1000, L3600.4000 #### [facility] [address] [place], [address] KAPPA/LAMBDA % 1.50 Normal 0.26-1.65 [facility] Comment on above: Performed By: #### L 500.4100, L3100.3450, L506.1000, L3600.4000 #### [facility] [address] [place], [address] L501.5101on 03-23-2025 GGTP 27 IU/L Normal 0-60 [facility] Comment on above: Performed By: #### L 500.4100, L3100.3450, L506.1000, L3600.4000 #### [facility] [address] [place], [address] Urine Cultureon 03-21-2025 U[facility] Mixed Gram Positive Organisms Welcome Count 50,000-80,000 MIXC Mixed contaminants. Submit a new specimen if indicated. Normal [facility] Comment on above: Performed By: #### L 500.4100, L3100.3450, L506.1000, L3600.4000 #### [facility] [address] [place], [address] Absolute lymphocyte countOrd ered By: Lesli Márquez on 03-19-2025 Lymphocytes Auto (Unsp spec) [#/Vol] 2.02 10*3/uL 0.83-4.51 [facility] Absolute neutrophil countOrd ered By: Lesli Márquez on 03-19-2025 Neutrophils (Bld) [#/Vol] 3.9 10*3/uL 2.0-7.7 [facility] Activated partial thrombopla stin time (aPTT) in platelet poor plasma by coagulation aOrdered By: Lesli Márquez on 03-19-2025 aPTT Coag (PPP) [Time] 23.8 s Low 24.1-36.2 [facility] Albumin Elph [Mass/Vol]Order ed By: Lesli Márquez on 03-19-2025 Albumin [Mass/Vol] 3.3 g/dL 2.9-4.4 [facility] Anion gap in Serum or Plasma Ordered By: Lesli Márquez on 03-19-2025 Anion gap [Moles/Vol] 11 mmol/L 5-15 [facility] Automated lymphocyte count a s percentage of total leukocytesOrdered By: Lesli Márquez on 03-19-2025 Lymphocytes/100 WBC Auto (Unsp spec) 29.0 % 19-41 [facility] BUN/creatinine ratioOrdered By: Lesli Márquez on 03-19-2025 Urea nitrogen/Creatinine [Mass ratio] 16.4 mg/mg 10-20 [facility] Basophil percentageOrdered B y: Lesli Márquez on 03-19-2025 Basophils/100 WBC (Bld) 0.9 % 0-1 [facility] Bilirubin Test strip Ql (U)O rdered By: Lesli Márquez on 03-19-2025 Bilirubin Ql (U) Negative Negative [facility] Bilirubin, totalOrdered By: Lesli Márquez on 03-19-2025 Bilirubin [Mass/Vol] 0.44 mg/dL 0.00-1.30 [facility] CBC W/Diff, Automatedon 02-19 Absolute Lymph 2.02 X10 3/uL Normal 0.83-4.51 [facility] Comment on above: Performed By: #### L 500.4050, L501.6710, L100.0100, L506.0400, L501.5200, L504.2610, L101.9900, L3100.0460, L501.9520, L501.1400, M100.2200, L3130.0010, L300.3900, L506.0200, L501.9985, L300.4310, L501.5101, L503.0106, L100.9950, L501.2300, L400.0001, L3100.3425 #### [facility] [address] [facility] [place], [place], [id number] ([phone]) Absolute Neut 3.9 X10 3/uL Normal 2.0-7.7 [facility] Comment on above: Performed By: #### L 500.4050, L501.6710, L100.0100, L506.0400, L501.5200, L504.2610, L101.9900, L3100.0460, L501.9520, L501.1400, M100.2200, L3130.0010, L300.3900, L506.0200, L501.9985, L300.4310, L501.5101, L503.0106, L100.9950, L501.2300, L400.0001, L3100.3425 #### [facility] [address] [facility] [place], [place], [id number] Basophils/100 WBC (Bld) 0.9 % Normal 0-1 [facility] Comment on above: Performed By: #### L 500.4050, L501.6710, L100.0100, L506.0400, L501.5200, L504.2610, L101.9900, L3100.0460, L501.9520, L501.1400, M100.2200, L3130.0010, L300.3900, L506.0200, L501.9985, L300.4310, L501.5101, L503.0106, L100.9950, L501.2300, L400.0001, L3100.3425 #### [facility] [address] [facility] [place], [place], [phone] ([phone]) Eosinophils/100 WBC (Bld) 2.3 % Normal 0-5 [facility] Comment on above: Performed By: #### L 500.4050, L501.6710, L100.0100, L506.0400, L501.5200, L504.2610, L101.9900, L3100.0460, L501.9520, L501.1400, M100.2200, L3130.0010, L300.3900, L506.0200, L501.9985, L300.4310, L501.5101, L503.0106, L100.9950, L501.2300, L400.0001, L3100.3425 #### [facility] [address] [place], [address] (019) Erythrocyte distribution width (RBC) [Ratio] 14.0 % Normal 11.6-14.6 [facility] Comment on above: Performed By: #### L 500.4050, L501.6710, L100.0100, L506.0400, L501.5200, L504.2610, L101.9900, L3100.0460, L501.9520, L501.1400, M100.2200, L3130.0010, L300.3900, L506.0200, L501.9985, L300.4310, L501.5101, L503.0106, L100.9950, L501.2300, L400.0001, L3100.3425 #### [facility] [address] [facility] [place], [address] (529) Hematocrit (Bld) [Volume fraction] 38.4 % Normal 37-47 [facility] Comment on above: Performed By: #### L 500.4050, L501.6710, L100.0100, L506.0400, L501.5200, L504.2610, L101.9900, L3100.0460, L501.9520, L501.1400, M100.2200, L3130.0010, L300.3900, L506.0200, L501.9985, L300.4310, L501.5101, L503.0106, L100.9950, L501.2300, L400.0001, L3100.3425 #### [facility] [address] [place], [place], [id number] Hemoglobin (Bld) [Mass/Vol] 12.4 g/dL Normal 12.0-15.0 [facility] Comment on above: Performed By: #### L 500.4050, L501.6710, L100.0100, L506.0400, L501.5200, L504.2610, L101.9900, L3100.0460, L501.9520, L501.1400, M100.2200, L3130.0010, L300.3900, L506.0200, L501.9985, L300.4310, L501.5101, L503.0106, L100.9950, L501.2300, L400.0001, L3100.3425 #### [facility] [address] [place], [place], [id number] IG% 0.300 Normal 0.0-0.9 [facility] Comment on above: Result Comment: IG% - Immature Granulocytes (promyelocytes, myelocytes and metamyelocytes) > 1% indicates that a LEFT SHIFT is Present. Performed By: #### L 500.4050, L501.6710, L100.0100, L506.0400, L501.5200, L504.2610, L101.9900, L3100.0460, L501.9520, L501.1400, M100.2200, L3130.0010, L300.3900, L506.0200, L501.9985, L300.4310, L501.5101, L503.0106, L100.9950, L501.2300, L400.0001, L3100.3425 #### [facility] [address] [place], [place], [phone] (530) Lymphocytes/100 WBC (Bld) 29.0 % Normal 19-41 [facility] Comment on above: Performed By: #### L 500.4050, L501.6710, L100.0100, L506.0400, L501.5200, L504.2610, L101.9900, L3100.0460, L501.9520, L501.1400, M100.2200, L3130.0010, L300.3900, L506.0200, L501.9985, L300.4310, L501.5101, L503.0106, L100.9950, L501.2300, L400.0001, L3100.3425 #### [facility] [address] [place], [place], [phone] (865) MCH (RBC) [Entitic mass] 28.4 pg Normal 27.0-32.0 [facility] Comment on above: Performed By: #### L 500.4050, L501.6710, L100.0100, L506.0400, L501.5200, L504.2610, L101.9900, L3100.0460, L501.9520, L501.1400, M100.2200, L3130.0010, L300.3900, L506.0200, L501.9985, L300.4310, L501.5101, L503.0106, L100.9950, L501.2300, L400.0001, L3100.3425 #### [facility] [address] [place], [address] (810) MCHC (RBC) [Mass/Vol] 32.3 g/dL Normal 32-36 [facility] Comment on above: Performed By: #### L 500.4050, L501.6710, L100.0100, L506.0400, L501.5200, L504.2610, L101.9900, L3100.0460, L501.9520, L501.1400, M100.2200, L3130.0010, L300.3900, L506.0200, L501.9985, L300.4310, L501.5101, L503.0106, L100.9950, L501.2300, L400.0001, L3100.3425 #### [facility] [address] [place], [address] MCV (RBC) [Entitic vol] 88.1 fL Normal 81-99 [facility] Comment on above: Performed By: #### L 500.4050, L501.6710, L100.0100, L506.0400, L501.5200, L504.2610, L101.9900, L3100.0460, L501.9520, L501.1400, M100.2200, L3130.0010, L300.3900, L506.0200, L501.9985, L300.4310, L501.5101, L503.0106, L100.9950, L501.2300, L400.0001, L3100.3425 #### [facility] [address] [place], [address] Monocytes/100 WBC (Bld) 11.8 % High 0-10 [facility] Comment on above: Performed By: #### L 500.4050, L501.6710, L100.0100, L506.0400, L501.5200, L504.2610, L101.9900, L3100.0460, L501.9520, L501.1400, M100.2200, L3130.0010, L300.3900, L506.0200, L501.9985, L300.4310, L501.5101, L503.0106, L100.9950, L501.2300, L400.0001, L3100.3425 #### [facility] [address] [place], [address] Neutrophils/100 WBC (Bld) 55.7 % Normal 47-70 [facility] Comment on above: Performed By: #### L 500.4050, L501.6710, L100.0100, L506.0400, L501.5200, L504.2610, L101.9900, L3100.0460, L501.9520, L501.1400, M100.2200, L3130.0010, L300.3900, L506.0200, L501.9985, L300.4310, L501.5101, L503.0106, L100.9950, L501.2300, L400.0001, L3100.3425 #### [facility] [address] [place], [address] Nucleated RBC (Bld) [#/Vol] 0 10*3/uL Normal 0-5 [facility] Comment on above: Performed By: #### L 500.4050, L501.6710, L100.0100, L506.0400, L501.5200, L504.2610, L101.9900, L3100.0460, L501.9520, L501.1400, M100.2200, L3130.0010, L300.3900, L506.0200, L501.9985, L300.4310, L501.5101, L503.0106, L100.9950, L501.2300, L400.0001, L3100.3425 #### [facility] [address] [place], [address] Platelet mean volume (Bld) [Entitic vol] 10.9 fL Normal 6.2-12.0 [facility] Comment on above: Performed By: #### L 500.4050, L501.6710, L100.0100, L506.0400, L501.5200, L504.2610, L101.9900, L3100.0460, L501.9520, L501.1400, M100.2200, L3130.0010, L300.3900, L506.0200, L501.9985, L300.4310, L501.5101, L503.0106, L100.9950, L501.2300, L400.0001, L3100.3425 #### [facility] [address] [facility] [place], [place], [phone] (850) Platelets (Bld) [#/Vol] 310 10*3/uL Normal 150-450 [facility] Comment on above: Performed By: #### L 500.4050, L501.6710, L100.0100, L506.0400, L501.5200, L504.2610, L101.9900, L3100.0460, L501.9520, L501.1400, M100.2200, L3130.0010, L300.3900, L506.0200, L501.9985, L300.4310, L501.5101, L503.0106, L100.9950, L501.2300, L400.0001, L3100.3425 #### [facility] [address] [place], [place], [phone] (718) RBC (Bld) [#/Vol] 4.36 10*6/uL Normal 4.2-5.4 [facility] Comment on above: Performed By: #### L 500.4050, L501.6710, L100.0100, L506.0400, L501.5200, L504.2610, L101.9900, L3100.0460, L501.9520, L501.1400, M100.2200, L3130.0010, L300.3900, L506.0200, L501.9985, L300.4310, L501.5101, L503.0106, L100.9950, L501.2300, L400.0001, L3100.3425 #### [facility] [address] [place], [place], [phone] (690) RDW SD 45.1 fl High 35.1-43.9 [facility] Comment on above: Performed By: #### L 500.4050, L501.6710, L100.0100, L506.0400, L501.5200, L504.2610, L101.9900, L3100.0460, L501.9520, L501.1400, M100.2200, L3130.0010, L300.3900, L506.0200, L501.9985, L300.4310, L501.5101, L503.0106, L100.9950, L501.2300, L400.0001, L3100.3425 #### [facility] [address] [place], [place], [id number] WBC (Bld) [#/Vol] 7.0 10*3/uL Normal 4.4-11.0 [facility] Comment on above: Performed By: #### L 500.4050, L501.6710, L100.0100, L506.0400, L501.5200, L504.2610, L101.9900, L3100.0460, L501.9520, L501.1400, M100.2200, L3130.0010, L300.3900, L506.0200, L501.9985, L300.4310, L501.5101, L503.0106, L100.9950, L501.2300, L400.0001, L3100.3425 #### [facility] [address] [place], [address] CRPon 03-19-2025 C-REACTIVE PROT 25.10 mg/L High 0.0-3.0 [facility] Comment on above: Performed By: #### L 500.4100, L3100.3450, L506.1000, L3600.4000 #### [facility] [address] [place], [address] Carbon dioxide, total [Moles /volume] in Central venous bloodOrdered By: Lesli Márquez on 03-19-2025 CO2 [Moles/Vol] 22.6 mmol/L 21.0-32.0 [facility] Chloride assayOrdered By: Liliya patricknalini Darinel on 03-19-2025 Chloride [Moles/Vol] 102 mmol/L 98-108 [facility] Comprehensive Metabolic Prof ilon 03-19-2025 Albumin [Mass/Vol] 3.7 g/dL Normal 3.5-5.0 [facility] Comment on above: Performed By: #### L 500.4100, L3100.3450, L506.1000, L3600.4000 #### [facility] [address] [place], [address] Albumin/Globulin [Mass ratio] 0.9 {ratio} Normal 0.9-2.4 [facility] Comment on above: Performed By: #### L 500.4100, L3100.3450, L506.1000, L3600.4000 #### [facility] [address] [place], [address] ALK PHOS 118 U/L High 35-104 [facility] Comment on above: Performed By: #### L 500.4100, L3100.3450, L506.1000, L3600.4000 #### [facility] [address] [place], [address] ALT [Catalytic activity/Vol] 20 U/L Normal <=34 [facility] Comment on above: Performed By: #### L 500.4100, L3100.3450, L506.1000, L3600.4000 #### [facility] [address] [place], [address] AST [Catalytic activity/Vol] 27 U/L Normal <=31 [facility] Comment on above: Performed By: #### L 500.4100, L3100.3450, L506.1000, L3600.4000 #### [facility] [address] [place], [address] Bilirubin [Mass/Vol] 0.44 mg/dL Normal 0.00-1.30 [facility] Comment on above: Performed By: #### L 500.4100, L3100.3450, L506.1000, L3600.4000 #### [facility] [address] [place], [address] BUN/CRE 16.4 RATIO Normal 10-20 [facility] Comment on above: Performed By: #### L 500.4100, L3100.3450, L506.1000, L3600.4000 #### [facility] [address] [place], [address] Calcium [Mass/Vol] 8.6 mg/dL Normal 7.6-11.0 [facility] Comment on above: Performed By: #### L 500.4100, L3100.3450, L506.1000, L3600.4000 #### [facility] [address] [place], [address] Chloride [Moles/Vol] 102 mmol/L Normal 98-108 [facility] Comment on above: Performed By: #### L 500.4100, L3100.3450, L506.1000, L3600.4000 #### [facility] [address] [place], [address] CO2 [Moles/Vol] 22.6 mmol/L Normal 21.0-32.0 [facility] Comment on above: Performed By: #### L 500.4100, L3100.3450, L506.1000, L3600.4000 #### [facility] [address] [place], [address] Creatinine [Mass/Vol] 0.58 mg/dL Low 0.70-1.20 [facility] Comment on above: Performed By: #### L 500.4100, L3100.3450, L506.1000, L3600.4000 #### [facility] [address] [place], [address] GAP 11 Normal 5-15 [facility] Comment on above: Performed By: #### L 500.4100, L3100.3450, L506.1000, L3600.4000 #### [facility] [address] [place], [address] GFR/1.73 sq M.predicted among non-blacks MDRD (S/P/Bld) [Vol rate/Area] 112 mL/min/{1.73_m2} Normal >60 [facility] Comment on above: Result Comment: mL/m in/1.73m2 CKD-EPI Creatinine Equation (2020) Performed By: #### L 500.4100, L3100.3450, L506.1000, L3600.4000 #### [facility] [address] [place], [address] Globulin (S) [Mass/Vol] 3.9 g/dL Normal 2.2-4.2 [facility] Comment on above: Performed By: #### L 500.4100, L3100.3450, L506.1000, L3600.4000 #### [facility] [address] [place], [address] Glucose [Mass/Vol] 100 mg/dL High 70-99 [facility] Comment on above: Performed By: #### L 500.4100, L3100.3450, L506.1000, L3600.4000 #### [facility] [address] [place], [address] Potassium [Moles/Vol] 4.1 mmol/L Normal 3.3-5.1 [facility] Comment on above: Performed By: #### L 500.4100, L3100.3450, L506.1000, L3600.4000 #### [facility] [address] [place], [address] Sodium [Moles/Vol] 135 mmol/L Normal 133-145 [facility] Comment on above: Performed By: #### L 500.4100, L3100.3450, L506.1000, L3600.4000 #### [facility] [address] [place], [address] T PROT 7.7 g/dL Normal 5.9-8.4 [facility] Comment on above: Performed By: #### L 500.4100, L3100.3450, L506.1000, L3600.4000 #### [facility] [address] [place], [place], [id number] Urea nitrogen [Mass/Vol] 10 mg/dL Normal 4-19 [facility] Comment on above: Performed By: #### L 500.4100, L3100.3450, L506.1000, L3600.4000 #### [facility] [address] [place], [place], [id number] Eosinophil percentageOrdered By: Lesli Márquez on 03-19-2025 Eosinophils/100 WBC (Bld) 2.3 % 0-5 [facility] Erythrocyte Sed Rateon 03-19 SED RATE 31 mm/hr High 0-30 [facility] Comment on above: Performed By: #### L 500.4050, L501.6710, L100.0100, L506.0400, L501.5200, L504.2610, L101.9900, L3100.0460, L501.9520, L501.1400, M100.2200, L3130.0010, L300.3900, L506.0200, L501.9985, L300.4310, L501.5101, L503.0106, L100.9950, L501.2300, L400.0001, L3100.3425 #### [facility] [address] [place], [address] Erythrocyte distribution wid th ratioOrdered By: Lesli Márquez on 03-19-2025 Erythrocyte distribution width (RBC) [Ratio] 14.0 % 11.6-14.6 [facility] Erythrocyte distribution wid th standard deviationOrdered By: Lesli Márquez on 03-19-2025 Erythrocyte distribution width (RBC) [Ratio] 45.1 fl High 35.1-43.9 [facility] Erythrocyte sedimentation ra teOrdered By: Lesli Márquez on 03-19-2025 ESR (Bld) [Velocity] 31 mm/h High 0-30 [facility] Folate [Moles/volume] in Ser um or PlasmaOrdered By: Lesli Márquez on 03-19-2025 Folate [Moles/Vol] 16.30 ng/mL 4.60-34.80 [facility] Folates,Serum (Folic Acid)on 03-19-2025 FOLATES,SERUM 16.30 ng/mL Normal 4.60-34.80 [facility] Comment on above: Order Comment: N Performed By: #### L 500.4100, L3100.3450, L506.1000, L3600.4000 #### [facility] [address] [place], [place] [address] [place], [address] Gamma glutamyl transferase ( GGT) measurementOrdered By: Lesli Márquez on 03-19-2025 Amylase [Catalytic activity/Vol] 27 U/L 0-60 [facility] Glomerular filtration rate ( GFR) estimation/1.73 sq m using serum, plasma, or whole bOrdered By: Lesli Márquez on 03-19-2025 GFR/1.73 sq M.predicted among non-blacks MDRD (S/P/Bld) [Vol rate/Area] 112 mL/min/{1.73_m2} >60 [facility] Comment on above: mL/min/1.73m2 CKD-EP I Creatinine Equation (2020) Hematocrit Auto (Bld) [Volum e fraction]Ordered By: Lesli Márquez on 03-19-2025 Hematocrit (Bld) [Volume fraction] 38.4 % 37-47 [facility] Hemoglobin A1con 03-19-2025 HbA1c (Bld) [Mass fraction] 5.3 % Normal <=5.6 [facility] Comment on above: Result Comment: Norm al < 5.7 % Prediabetic 5.7 - 6.4 % Diabetic >or= 6.5 % Please note range changes. Performed By: #### L 500.4100, L3100.3450, L506.1000, L3600.4000 #### [facility] [address] [place], [place], [id number] Hemoglobin A1c percentageOrd ered By: Lesli Márquez on 03-19-2025 HbA1c (Bld) [Mass fraction] 5.3 % <5.7 [facility] Comment on above: Normal < 5.7 % Predi abetic 5.7 - 6.4 % Diabetic >or= 6.5 % Please note range changes. Hemoglobin measurementOrdere d By: Lesli Márquez on 03-19-2025 Hemoglobin (Bld) [Mass/Vol] 12.4 g/dL 12.0-15.0 [facility] Immature granulocytes/100 WB C Auto (Bld)Ordered By: Lesli Márquez on 03-19-2025 Immature granulocytes/100 WBC (Bld) 0.300 % 0.0-0.9 [facility] Comment on above: IG% - Immature Granu locytes (promyelocytes, myelocytes and metamyelocytes) > 1% indicates that a LEFT SHIFT is Present. International normalized rat io (INR) calculationOrdered By: Lesli Márquez on 03-19-2025 INR Coag (Bld) [Relative time] 1.0 {INR} [facility] Interpretation of serum or p lasma protein pattern by immunofixation (narrative resultOrdered By: Lesli Márquez on 03-19-2025 Protein Fractions Immunofixation Shiva [Interp] Not Observed g/dL Not Observed [facility] Ketones Test strip Ql (U)Ord ered By: Lesli Márquez on 03-19-2025 Ketones Ql (U) Negative Negative [facility] LDHon 03-19-2025 LDH 198 U/L Normal 84-246 [facility] Comment on above: Order Comment: 1 Performed By: #### L 500.4100, L3100.3450, L506.1000, L3600.4000 #### [facility] [address] [place], [place], [id number] Laboratory - Chemistry and C hemistry - challengeOrdered By: Lesli Márquez on 05-31-2025 AST [Catalytic activity/Vol] 27 U/L <32 [facility] Lactate dehydrogenase (LDH) measurementOrdered By: Lesli Márquez on 03-19-2025 LDH [Catalytic activity/Vol] 198 U/L 84-246 [facility] MCV (mean corpuscular volume ) determinationOrdered By: Lesli Márquez on 03-19-2025 MCV (RBC) [Entitic vol] 88.1 fL 81-99 [facility] Magnesiumon 03-19-2025 Magnesium [Mass/Vol] 2.0 mg/dL Normal 1.5-2.2 [facility] Comment on above: Performed By: #### L 500.4100, L3100.3450, L506.1000, L3600.4000 #### [facility] [address] [place], [address] Magnesium measurement (mass/ volume)Ordered By: Lesli Márquez on 03-19-2025 Magnesium (Unsp spec) [Mass/Vol] 2.0 mg/dL 1.5-2.2 [facility] Mean corpuscular hemoglobin (MCH) determinationOrdered By: Lesli Márquez on 03-19-2025 MCH (RBC) [Entitic mass] 28.4 pg 27.0-32.0 [facility] Mean corpuscular hemoglobin concentration (MCHC) determinationOrdered By: Lesli Márquez on 03-19-2025 MCHC (RBC) [Mass/Vol] 32.3 g/dL 32-36 [facility] Mean platelet volume determi nationOrdered By: Lesli Márquez on 03-19-2025 Platelet mean volume (Bld) [Entitic vol] 10.9 fL 6.2-12.0 [facility] Microscopic analysis of urin e for red blood cells (RBC)Ordered By: Lesli Márquez on 03-19-2025 Microscopic analysis of urine for red blood cells (RBC) 0-5 SEEN /hpf 0-5 [facility] Monocyte percentageOrdered B y: Lesli Márquez on 03-19-2025 Monocytes/100 WBC (Bld) 11.8 % High 0-10 [facility] Mucus LM Ql (Urine sed)Order ed By: Lesli Márquez on 03-19-2025 Mucus Ql (Urine sed) 1+ /hpf [facility] Neutrophil percentageOrdered By: Lesli Márquez on 03-19-2025 Neutrophils/100 WBC (Bld) 55.7 % 47-70 [facility] Nitrite Test strip Ql (U)Ord ered By: Lesli Márquez on 03-19-2025 Nitrite Ql (U) Negative Negative [facility] No Panel InformationOrdered By: Lesli Márquez on 03-19-2025 Addendum Document Comment . [facility] Comment on above: Protein electrophore sis scan will follow via computer,mail, or screen printer delivery. Nucleated red blood cell per centageOrdered By: Lesli Márquez on 03-19-2025 Nucleated RBC/100 WBC (Bld) [Ratio] 0 % 0-5 [facility] Partial Thromboplast Timeon 03-19-2025 aPTT Coag (Bld) [Time] 23.8 s Low 24.1-36.2 [facility] Comment on above: Performed By: #### L 500.4100, L3100.3450, L506.1000, L3600.4000 #### [facility] [address] [place], [address] Phosphoruson 03-19-2025 Phosphate [Mass/Vol] 2.9 mg/dL Normal 2.7-4.5 [facility] Comment on above: Performed By: #### L 500.4100, L3100.3450, L506.1000, L3600.4000 #### [facility] [address] [place], [address] Platelet countOrdered By: Liliya Márquez on 03-19-2025 Platelets (Bld) [#/Vol] 310 10*3/uL 150-450 [facility] Potassium measurement (mass/ volume)Ordered By: Lesli Márquez on 03-19-2025 Potassium (Unsp spec) [Mass/Vol] 4.1 mmol/L 3.3-5.1 [facility] Protein Test strip Ql (U)Ord ered By: Lesli Márquez on 03-19-2025 Protein Ql (U) 30 mg/dl High Negative [facility] Prothrombin Time w/INRon INR Coag (PPP) [Relative time] 1.0 {INR} Normal [facility] Comment on above: Performed By: #### L 500.4050, L501.6710, L100.0100, L506.0400, L501.5200, L504.2610, L101.9900, L3100.0460, L501.9520, L501.1400, M100.2200, L3130.0010, L300.3900, L506.0200, L501.9985, L300.4310, L501.5101, L503.0106, L100.9950, L501.2300, L400.0001, L3100.3425 #### [facility] [address] [place], [address] PT Coag (PPP) [Time] 13.1 s Normal 11.7-14.9 [facility] Comment on above: Performed By: #### L 500.4050, L501.6710, L100.0100, L506.0400, L501.5200, L504.2610, L101.9900, L3100.0460, L501.9520, L501.1400, M100.2200, L3130.0010, L300.3900, L506.0200, L501.9985, L300.4310, L501.5101, L503.0106, L100.9950, L501.2300, L400.0001, L3100.3425 #### [facility] [address] [place], [address] Prothrombin timeOrdered By: Lesli Márquez on 03-19-2025 PT Coag (PPP) [Time] 13.1 s 11.7-14.9 [facility] RBC Auto (Bld) [#/Vol]Ordere d By: Lesli Márquez on 03-19-2025 RBC (Bld) [#/Vol] 4.36 10*6/uL 4.2-5.4 [facility] Retic Panelon 03-19-2025 IM RET FRACTION 20.90 High 3.00-15.90 [facility] Comment on above: Performed By: #### L 500.4050, L501.6710, L100.0100, L506.0400, L501.5200, L504.2610, L101.9900, L3100.0460, L501.9520, L501.1400, M100.2200, L3130.0010, L300.3900, L506.0200, L501.9985, L300.4310, L501.5101, L503.0106, L100.9950, L501.2300, L400.0001, L3100.3425 #### [facility] [address] [place], [place], [id number] RET-HE 31.7 pg Normal 30-35 [facility] Comment on above: Performed By: #### L 500.4050, L501.6710, L100.0100, L506.0400, L501.5200, L504.2610, L101.9900, L3100.0460, L501.9520, L501.1400, M100.2200, L3130.0010, L300.3900, L506.0200, L501.9985, L300.4310, L501.5101, L503.0106, L100.9950, L501.2300, L400.0001, L3100.3425 #### [facility] [address] [place], [place], [id number] Retic Count 1.72 High 0.5-1.5 [facility] Comment on above: Performed By: #### L 500.4050, L501.6710, L100.0100, L506.0400, L501.5200, L504.2610, L101.9900, L3100.0460, L501.9520, L501.1400, M100.2200, L3130.0010, L300.3900, L506.0200, L501.9985, L300.4310, L501.5101, L503.0106, L100.9950, L501.2300, L400.0001, L3100.3425 #### [facility] [place], [address] Reticulocyte hemoglobin equi valent (RET-He) measurementOrdered By: Lesli Márquez on 03-19-2025 Hemoglobin (Reticulocytes) [Entitic mass] 31.7 pg 30-35 [facility] Reticulocytes Auto (Bld) [#/ Vol]Ordered By: Lesli Márquez on 03-19-2025 Reticulocytes/100 RBC (Bld) 1.72 % High 0.5-1.5 [facility] Serum creatinine measurement (mass/volume)Ordered By: Lesli Márquez on 03-19-2025 Creatinine [Mass/Vol] 0.58 mg/dL Low 0.70-1.20 [facility] Serum globulin measurement ( mass/volume)Ordered By: Lesli Márquez on 03-19-2025 Globulin (S) [Mass/Vol] 4.0 g/dL High 2.2-3.9 [facility] Serum glucose measurement (m ass/volume)Ordered By: Lesli Márquez on 03-19-2025 Glucose [Mass/Vol] 100 mg/dL High 70-99 [facility] Serum hepatitis B virus core antibody detectionOrdered By: Lesli Márquez on 03-19-2025 HBV core Ab Ql (S) Negative Negative [facility] Comment on above: Performed at: [address] [id number] Director: Ramon Bell PhD, Phone: [phone] Serum immunoglobulin kappa l ight chains/immunoglobulin lambda light chains mass ratioOrdered By: Lesli Márquez on 03-19-2025 Immunoglobulin light chains.kappa/Immunoglob ulin light chains.lambda (S) [Mass ratio] 1.50 0.26-1.65 [facility] Serum or plasma C reactive p rotein measurement (mass/volume)Ordered By: Lesli Márquez on 03-19-2025 CRP [Mass/Vol] 25.10 mg/L High 0.0-3.0 [facility] Serum or plasma IgA measurem ent (mass/volume)Ordered By: Lesli Márquez on 03-19-2025 IgA [Mass/Vol] 380 mg/dL High 87-352 [facility] Serum or plasma IgG measurem ent (mass/volume)Ordered By: Lesli Márquez on 03-19-2025 IgG [Mass/Vol] 1875 mg/dL High 586-1602 [facility] Serum or plasma alanine stein otransferase (ALT) measurementOrdered By: Lesli Márquez on 03-19-2025 ALT [Catalytic activity/Vol] 20 U/L <35 [facility] Serum or plasma albumin abbey urement (mass/volume)Ordered By: Lesli Márquez on 03-19-2025 Albumin [Mass/Vol] 3.7 g/dL 3.5-5.0 [facility] Serum or plasma albumin/glob ulin mass ratioOrdered By: Lesli Márquez on 03-19-2025 Albumin/Globulin [Mass ratio] 0.9 {ratio} 0.9-2.4 [facility] Serum or plasma alkaline álvaro sphatase measurementOrdered By: Lesli Márquez on 03-19-2025 ALP [Catalytic activity/Vol] 118 U/L High 35-104 [facility] Serum or plasma alpha 1 glob ulin measurement by electrophoresis (mass/volume)Ordered By: Lesli Márquez 03-19-2025 Alpha 1 globulin Elph [Mass/Vol] 0.3 g/dL 0.0-0.4 [facility] Alpha 1 globulin Elph [Mass/Vol] 0.8 g/dL 0.4-1.0 [facility] Serum or plasma beta globuli n measurement by electrophoresis (mass/volume)Ordered By: Lesli Márquez on 03-19-2025 Beta globulin Elph [Mass/Vol] 1.3 g/dL 0.7-1.3 [facility] Serum or plasma calcium abbey urement (mass/volume)Ordered By: Lesli Márquez on 03-19-2025 Calcium [Mass/Vol] 8.6 mg/dL 7.6-11.0 [facility] Serum or plasma gamma globul in measurement by electrophoresis (mass/volume)Ordered By: Lesli Márquez on 03-19-2025 Gamma globulin Elph [Mass/Vol] 1.7 g/dL 0.4-1.8 [facility] Serum or plasma immunoelectr ophoresis interpretation (nominal result)Ordered By: Lesli Márquez on 03-19-2025 Interpretation IEP [Interp] Comment . [facility] Comment on above: No monoclonality det ected. Serum or plasma immunoglobul in kappa light chains measurement (mass/volume)Ordered By: Lesli Márquez on 03-19-2025 Immunoglobulin light chains.kappa [Mass/Vol] 30.8 mg/L High 3.3-19.4 [facility] Serum or plasma protein abbey urement (mass/volume)Ordered By: Lesli Márquez on 03-19-2025 Protein [Mass/Vol] 7.3 g/dL 6.0-8.5 [facility] Serum or plasma urea nitroge n measurement (mass/volume)Ordered By: Lesli Márquez on 03-19-2025 Urea nitrogen [Mass/Vol] 10 mg/dL 4-19 [facility] Serum or plasma uric acid me asurement (mass/volume)Ordered By: Lesli Márquez on 03-19-2025 Urate [Mass/Vol] 4.3 mg/dL 2.6-6.0 [facility] Comment on above: The drugs N-Acetylcy steine and Metamizole may falsely depress this assay. Sodium levelOrdered By: Genesis Márquez on 03-19-2025 Sodium [Moles/Vol] 135 mmol/L 133-145 [facility] Squamous epithelial cells de tection in urine sediment by light microscopyOrdered By: Lesli Márquez on 03-19-2025 Epithelial cells.squamous LM Ql (Urine sed) 0-5 SEEN /hpf 5-10 [facility] T4 Free Directon 03-19-2025 T4 FREE DIRECT 1.00 ng/dL Normal 0.76-1.46 [facility] Comment on above: Order Comment: N Performed By: #### L 500.4100, L3100.3450, L506.1000, L3600.4000 #### [facility] Laboratory [address] [place], [place], [id number] T4 freeOrdered By: Lesli Suon on 03-19-2025 Free T4 [Mass/Vol] 1.00 ng/dL 0.76-1.46 [facility] TSH DL <= 0.005 mIU/L QnOrde red By: Lesli Suon on 03-19-2025 TSH Qn 2.320 uIU/mL 0.300-4.20 0 [facility] Thyroid Stim Hormone (TSH)on 03-19-2025 TSH 2.320 uIU/mL Normal 0.300-4.20 0 [facility] Comment on above: Performed By: #### L 500.4100, L3100.3450, L506.1000, L3600.4000 #### [facility] [address] [place], [place], [id number] Total proteinOrdered By: Genesis Márquez on 03-19-2025 Protein [Mass/Vol] 7.7 g/dL 5.9-8.4 [facility] Uric Acidon 03-19-2025 URIC 4.3 mg/dL Normal 2.6-6.0 [facility] Comment on above: Result Comment: The drugs N-Acetylcysteine and Metamizole may falsely depress this assay. Performed By: #### L 500.4100, L3100.3450, L506.1000, L3600.4000 #### [facility] [address] [place], [address] Urinalysis, Completeon 03-19 BACTERIA 2+ /hpf Normal None Seen [facility] Comment on above: Order Comment: CLEAN CATCH Performed By: #### L 500.4050, L501.6710, L100.0100, L506.0400, L501.5200, L504.2610, L101.9900, L3100.0460, L501.9520, L501.1400, M100.2200, L3130.0010, L300.3900, L506.0200, L501.9985, L300.4310, L501.5101, L503.0106, L100.9950, L501.2300, L400.0001, L3100.3425 #### [facility] [address] [place], [place], [id number] EPI,SQUAMOUS 0-5 SEEN Normal 5-10 [facility] Comment on above: Order Comment: CLEAN CATCH Performed By: #### L 500.4050, L501.6710, L100.0100, L506.0400, L501.5200, L504.2610, L101.9900, L3100.0460, L501.9520, L501.1400, M100.2200, L3130.0010, L300.3900, L506.0200, L501.9985, L300.4310, L501.5101, L503.0106, L100.9950, L501.2300, L400.0001, L3100.3425 #### [facility] [address] [place], [address] Mucus Ql (Urine sed) 1+ /hpf Normal [facility] Comment on above: Order Comment: CLEAN CATCH Performed By: #### L 500.4050, L501.6710, L100.0100, L506.0400, L501.5200, L504.2610, L101.9900, L3100.0460, L501.9520, L501.1400, M100.2200, L3130.0010, L300.3900, L506.0200, L501.9985, L300.4310, L501.5101, L503.0106, L100.9950, L501.2300, L400.0001, L3100.3425 #### [facility] [address] [place], [place], [id number] RBC 0-5 SEEN Normal 0-5 [facility] Comment on above: Order Comment: CLEAN CATCH Performed By: #### L 500.4050, L501.6710, L100.0100, L506.0400, L501.5200, L504.2610, L101.9900, L3100.0460, L501.9520, L501.1400, M100.2200, L3130.0010, L300.3900, L506.0200, L501.9985, L300.4310, L501.5101, L503.0106, L100.9950, L501.2300, L400.0001, L3100.3425 #### [facility] [address] [place], [place], [id number] WBC 0-5 SEEN Normal 0-5 [facility] Comment on above: Order Comment: CLEAN CATCH Performed By: #### L 500.4050, L501.6710, L100.0100, L506.0400, L501.5200, L504.2610, L101.9900, L3100.0460, L501.9520, L501.1400, M100.2200, L3130.0010, L300.3900, L506.0200, L501.9985, L300.4310, L501.5101, L503.0106, L100.9950, L501.2300, L400.0001, L3100.3425 #### [facility] [address] [place], [place], [id number] Urine clarityOrdered By: Genesis Márquez on 03-19-2025 Clarity (U) Sl. Cloudy Clear [facility] Urine color determinationOrd ered By: Lesli Márquez on 03-19-2025 Color (U) Yellow Yellow [facility] Urine cultureOrdered By: Genesis Márquez on 03-19-2025 Bacteria identified Cx Nom (U) Positive Abnormal [facility] Urine glucose detectionOrder ed By: Lesli Márquez on 03-19-2025 Glucose Ql (U) Normal mg/dl Normal [facility] Urine leukocyte esterase det ection by dipstickOrdered By: Lesli Márquez on 03-19-2025 Leukocyte esterase Test strip Ql (U) Negative Negative [facility] Urine pHOrdered By: Lesli Márquez on 03-19-2025 pH (U) 6.5 [pH] 5.0 - 8.0 [facility] Urine sediment bacteria coun t by microscopy (number/high power field)Ordered By: Lesli Márquez on 03-19-2025 Bacteria LM.HPF (Urine sed) [#/Area] 2 /[HPF] None Seen [facility] Urine specific gravity measu rementOrdered By: Lesli Márquez on 03-19-2025 Specific gravity (U) [Rel density] 1.010 1.002-1.03 0 [facility] Urine urobilinogen measureme ntOrdered By: Lesli Márquez on 03-19-2025 Urobilinogen Ql (U) Normal mg/dl Normal [facility] Vitamin B12on 03-19-2025 Cobalamin (Vitamin B12) [Mass/Vol] 609 pg/mL Normal 180-914 [facility] Comment on above: Performed By: #### L 500.4100, L3100.3450, L506.1000, L3600.4000 #### [facility] [address] [place], [address] Vitamin B12 ser/plasOrdered By: Lesli Márquez on 03-19-2025 Cobalamin (Vitamin B12) [Mass/Vol] 609 pg/mL 180-914 [facility] White blood cell (WBC) count Ordered By: Lesli Márquez on 03-19-2025 WBC (Bld) [#/Vol] 7.0 10*3/uL 4.4-11.0 [facility] White blood cell countOrdere d By: Lesli Márquez on 03-19-2025 White blood cell count 0-5 SEEN /hpf 0-5 [facility] MR/BMSSandra 02-11-2025 MR/BMSESPERANZA [facility] [address] [place], [place] [address] OFFICE VISIT Date of Service: 02/11/25 MR#: [id number] Acct: [id number] Name: ALIX PALMER Rep #: [id number] : 1975 Provider: BYRON Tovar Age/Sex: 49/F Location: [facility] Status: Signed with Addenda ADDENDUM by BYRON Tovar on 08/04/25 at 1126 Intake Chief Complaint: Cardiac Score Allergies Beef Containing Products Allergy (Severe, Verified [...] mg PO QDAY 02/11/25 02/11/25 Hi story Assessment and Plan Assessment and Plan (1) Thoracic aortic aneurysm: Status: Acute Plan: CTA Chest with contrast did not demonstrate thoracic aortic aneurysm that was reported on coronary calcium score. No need for further imaging/intervention at present. Plan for return as needed. Orders: Orders CTA Chest W/WO Contrast 07/28/25 I71.20 - Thoracic aortic aneurysm, without rupture, unspecified 08/04/25 1126 Date Gardenia Dawson cc: Dr. 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 Márquez. She reports no prior known personal or family history of aneurysmal disease. She does not smoke. She does have hypertensi (more content not included)... Normal [facility] Abdomen W/WO IV Contraston 0 02-10-2025 Abdomen W/WO IV Contrast [facility] [address] [place] [address] Abdomen W/WO IV Contrast MR#: [id number] Acct: [id number] Name: ALIX PALMER Rep #: [id number] : 1975 F 49 From: Melchor Chairez PCP: Dr. Lesli Márquez, Status: REG CLI Study: Abdomen W/WO IV Contrast Date of Exam: 5 Exam# [id number] Ordering Dr: Lesli Márquez DO PROCEDURE: ABDOMEN [...] Location: [facility] CC: Dr. 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 COMPARISON: None. ACCESSION NUMBER(S): [id number] ORDERING CLINICIAN: LESLI MÁRQUEZ TECHNIQUE: Using prospective [...] coronary heart disease events. According to the [place] [employer] Clinical Expert Consensus [...] modify other non-lipid coronary risk factors. Reference: Jorge Luis P et al. Circulation. 2007; 115:402-426 MACRO: None Signed by: Slade Galvez 12/27/2024 8:21 AM Dictation workstation: [id number] [facility] Protein Electro.Ur-Randomon 11-10-2024 M-SPIKE,U Normal [facility] Comment on above: Result Comment: NOT OBSERVED Performed By: #### L 500.4100, L3100.3450, L506.1000, L3600.4000 #### [facility] [address] [place], [address] Protein Electroph, Son 11-09 Albumin [Mass/Vol] 3.1 g/dL Normal 2.9-4.4 [facility] Comment on above: Performed By: #### L 500.4100, L3100.3450, L506.1000, L3600.4000 #### [facility] [address] [place], [address] Albumin/Globulin [Mass ratio] 0.7 {ratio} Normal 0.7-1.7 [facility] Comment on above: Performed By: #### L 500.4100, L3100.3450, L506.1000, L3600.4000 #### [facility] [address] [place], [address] ALPHA-1 GLOBUL 0.2 g/dL Normal 0.0-0.4 [facility] Comment on above: Performed By: #### L 500.4100, L3100.3450, L506.1000, L3600.4000 #### [facility] [address] [place], [address] ALPHA-2 GLOBUL 1.0 g/dL Normal 0.4-1.0 [facility] Comment on above: Performed By: #### L 500.4100, L3100.3450, L506.1000, L3600.4000 #### [facility] [address] [place], [address] BETA GLOBULIN 1.3 g/dL Normal 0.7-1.3 [facility] Comment on above: Performed By: #### L 500.4100, L3100.3450, L506.1000, L3600.4000 #### [facility] [address] [place], [address] GAMMA GLOBULIN 1.9 g/dL High 0.4-1.8 [facility] Comment on above: Performed By: #### L 500.4100, L3100.3450, L506.1000, L3600.4000 #### [facility] [address] [place], [address] Globulin (S) [Mass/Vol] 4.4 g/dL High 2.2-3.9 [facility] Comment on above: Performed By: #### L 500.4100, L3100.3450, L506.1000, L3600.4000 #### [facility] [address] [place], [address] INTERPRETATION Comment Normal . [facility] Comment on above: Result Comment: Prot ein electrophoresis scan will follow via computer, mail, or screen printer delivery. Performed By: #### L 500.4100, L3100.3450, L506.1000, L3600.4000 #### [facility] [address] [place], [address] M-SPIKE Not Observed Normal Not Observed [facility] Comment on above: Performed By: #### L 500.4100, L3100.3450, L506.1000, L3600.4000 #### [facility] [address] [place], [address] NOTE: Comment Normal . [facility] Comment on above: Result Comment: The SPE pattern reflects a polyclonal increase in gamma globulin. Hypergammaglobulinemia is found in a wide variety of infectious, non-infectious, and autoimmune disease states. Evidence of monoclonal protein is not apparent. Performed By: #### L 500.4100, L3100.3450, L506.1000, L3600.4000 #### [facility] [address] [place], [address] Protein [Mass/Vol] 7.5 g/dL Normal 6.0-8.5 [facility] Comment on above: Performed By: #### L 500.4100, L3100.3450, L506.1000, L3600.4000 #### [facility] [address] [place], [address] Vitamin D,25 Hydroxyon 11-08 Vitamin D 25-OH 34.7 ng/mL Normal [facility] Comment on above: Result Comment: Deloris min D 25(OH) Status Range Deficiency <20 ng/mL (50nmol/L) Insufficiency 20 - 30 ng/mL (50 - 75 nmol/L) Sufficiency 30 - 100 ng/mL (75 - 250 nmol/L) Toxicity >100 ng/mL (>250 nmol/L) Performed By: #### L 500.4100, L3100.3450, L506.1000, L3600.4000 #### [facility] [address] [place], [address] 18-FJ-Outktsc DOrdered By: Matt Márquez on 11-06-2024 Vitamin D 25-Hydroxy 34.7 ng/mL [facility] Comment on above: Vitamin D 25(OH) Sta tus Range Deficiency <20 ng/mL (50nmol/L) Insufficiency 20 - 30 ng/mL (50 - 75 nmol/L) Sufficiency 30 - 100 ng/mL (75 - 250 nmol/L) Toxicity >100 ng/mL (>250 nmol/L) Addendum DocumentOrdered By: Lesli Márquez on 11-06-2024 Protein Electrophoresis Note Comment . [facility] Comment on above: The SPE pattern refl ects a polyclonal increase in gammaglobulin. Hypergammaglobulinemia is found in a wide varietyof infectious, non-infectious, and autoimmune diseasestates. Evidence of monoclonal protein is not apparent. Albumin Elph (U) [Mass fract ion]Ordered By: Lesli Márquez on 11-06-2024 Urine Albumin 19.0 % . [facility] Albumin Elph [Mass/Vol]Order ed By: Lesli Márquez on 11-06-2024 Albumin [Mass/Vol] 3.1 g/dL 2.9-4.4 [facility] Albumin/Globulin Elph [Mass ratio]Ordered By: Lesli Márquez on 11-06-2024 Albumin/Globulin (PEP) 0.7 0.7-1.7 [facility] Alpha 1 globulin Elph (U) [M ass fraction]Ordered By: Lesli Márquez on 11-06-2024 Urine Zbvgo-2-Amzgmifm 4.1 % . [facility] Alpha 2 globulin Elph (24H U ) [Mass fraction]Ordered By: Lesli Márquez on 11-06-2024 Urine Issic-4-Vmfkdjlgf 22.7 % . [facility] Olfcs-1-jleedmqs measurement by protein electrophoresisOrdered By: Lesli Márquez on 11-06-2024 Lrdql-4-Wlqgpvkuu 0.2 g/dL 0.0-0.4 [facility] Rpuqj-8-aeojcyuv measurement by protein electrophoresisOrdered By: Lesli Márquez on 11-06-2024 Ipmhi-2-Hzbplqnid 1.0 g/dL 0.4-1.0 [facility] Beta globulin Elph (24H U) [ Mass fraction]Ordered By: Lesli Márquez on 11-06-2024 Urine Beta Globulin 26.4 % . [facility] Beta globulin Elph [Mass/Vol ]Ordered By: Lesli Márquez on 11-06-2024 Beta Globulins 1.3 g/dL 0.7-1.3 [facility] Gamma globulin Elph (24H U) [Mass fraction]Ordered By: Lesli Márquez on 11-06-2024 Urine Gamma Globulin 27.8 % . [facility] Gamma globulin measurement b y protein electrophoresisOrdered By: Lesli Márquez on 11-06-2024 Gamma Globulins 1.9 g/dL High 0.4-1.8 [facility] Globulin (S) [Mass/Vol]Order ed By: Lesli Márquez on 11-06-2024 Globulin (PEP) 4.4 g/dL High 2.2-3.9 [facility] High density lipoprotein (HD L) measurementOrdered By: Lesli Márquez on 11-06-2024 Cholesterol in HDL [Mass/Vol] 54 mg/dL >40 [facility] Comment on above: The drugs N-Acetylcy steine and Metamizole may falsely depress this assay. Reference Range HDL <40 mg/dL Low HDL Cholesterol HDL >or= 60 mg/dL High HDL Cholesterol Lipid Profileon 11-06-2024 Cholesterol [Mass/Vol] 207 mg/dL High 200 [facility] Comment on above: Result Comment: <200 mg/dL Desirable 200-240 mg/dL Borderline >240 mg/dL High Risk Performed By: #### L 500.4100, L3100.3450, L506.1000, L3600.4000 #### [facility] [address] [place], [address] Cholesterol in HDL [Mass/Vol] 54 mg/dL Normal [facility] Comment on above: Result Comment: The drugs N-Acetylcysteine and Metamizole may falsely depress this assay. Reference Range HDL <40 mg/dL Low HDL Cholesterol HDL >or= 60 mg/dL High HDL Cholesterol Performed By: #### L 500.4100, L3100.3450, L506.1000, L3600.4000 #### [facility] [address] [place], [address] Cholesterol in LDL [Mass/Vol] 119 mg/dL Normal 0-130 [facility] Comment on above: Performed By: #### L 500.4100, L3100.3450, L506.1000, L3600.4000 #### [facility] [address] [place], [address] Cholesterol in VLDL [Mass/Vol] 34 mg/dL Normal 5-40 [facility] Comment on above: Performed By: #### L 500.4100, L3100.3450, L506.1000, L3600.4000 #### [facility] [address] [place], [address] Triglyceride [Mass/Vol] 171 mg/dL Normal [facility] Comment on above: Result Comment: The drugs N-Acetylcysteine and Metamizole may falsely depress this assay. Serum Triglycerides Reference Interval Normal <150 mg/dL Borderline high 150 - 199 mg/dL High 200 - 499 mg/dL Very High > or = 500 mg/dL Performed By: #### L 500.4100, L3100.3450, L506.1000, L3600.4000 #### [facility] [address] [place], [address] Low density lipoprotein (LDL ) cholesterol measurementOrdered By: Lesli Márquez on 11-06-2024 Cholesterol in LDL [Mass/Vol] 119 mg/dL 0-130 [facility] Protein Fractions Elph [Inte rp]Ordered By: Lesli Márquez on 11-06-2024 Protein Electrophoresis Interpret Comment . [facility] Comment on above: Protein electrophore sis scan will follow via computer,mail, or screen printer delivery. Protein.monoclonal Elph (U) [Mass fraction]Ordered By: Lesli Márquez on 11-06-2024 Ur Protein Electrophoresis M-Terrance See comment [facility] [facility] Comment on above: NOT OBSERVED Protein.monoclonal Elph [Mas s/Vol]Ordered By: Lesli Márquez on 11-06-2024 Protein Electrophoresis M-Terrance Not Observed g/dL Not Observed [facility] Serum or plasma cholesterol measurement (mass/volume)Ordered By: Lesli Márquez on 11-06-2024 Cholesterol [Mass/Vol] 207 mg/dL High <200 [facility] Comment on above: <200 mg/dL Desirable 200-240 mg/dL Borderline >240 mg/dL High Risk Serum or plasma protein abeby urement (mass/volume)Ordered By: Lesli Márquez on 11-06-2024 Protein [Mass/Vol] 7.5 g/dL 6.0-8.5 [facility] Triglycerides measurementOrd ered By: Lesli Márquez on 11-06-2024 Triglyceride [Mass/Vol] 171 mg/dL <199 [facility] Comment on above: The drugs N-Acetylcy steine and Metamizole may falsely depress this assay.Serum Triglycerides Reference Interval Normal <150 mg/dL Borderline high 150 - 199 mg/dL High 200 - 499 mg/dL Very High > or = 500 mg/dL Urine protein measurement (m ass/volume)Ordered By: Lesli Márquez on 11-06-2024 Protein (U) [Mass/Vol] 8.7 mg/dL Not Estab. 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 IOM ([place] of Medicine). 2010. Dietary reference intakes for calcium and D. [place]: The National Academies Press.2. Deshaun MF, Anshu FRANCISCO, Rodolfo PATEL, et al. Evaluation, treatment, and prevention of vitamin D deficiency: an Endocrine Society clinical practice guideline. JCEM. 2010; 96(7):1911-30. PATIENT WAS FASTINGP ERFORMED BY: [employer] Wind Transportationin [place] [id number] CBC W/AUTO DIFF WBC ([id number])O rdered By: Director Of Home Health Services on 03-13-2023 Basophils (Bld) [#/Vol] 0.1 10*3/uL Normal 0.0-0.2 [facility]; [facility] Work Phone: Comment on above: PATIENT WAS FASTINGP ERFORMED BY: Ernie'srp Wdw[address] [place].comblin [place] [id number] Basophils/100 WBC (Bld) 1 % Normal C [facility]; [facility] Work Phone: Comment on above: PATIENT WAS FASTINGP ERFORMED BY: [employer] [place] [place]60.comblin [place] [id number] Eosinophils (Bld) [#/Vol] 0.2 10*3/uL Normal 0.0-0.4 [facility]; [facility] Work Phone: Comment on above: PATIENT WAS FASTINGP ERFORMED BY: JAYLIN [facility] Wlgqgl2368 [address] RoadDublin [place] [id number] Eosinophils/100 WBC (Bld) 3 % Normal [facility]; [facility] Work Phone: Comment on above: PATIENT WAS FASTINGP ERFORMED BY: CB [facility] Vnptej7616 [address] Roadblin [place] [id number] Erythrocyte distribution width (RBC) [Ratio] 12.4 % Normal 11.7-15.4 [facility]; [facility] Work Phone: Comment on above: PATIENT WAS FASTINGP ERFORMED BY: CB [facility] Ppgedj6589 [address] RoadDublin [place] [id number] Hematocrit (Bld) [Volume fraction] 39.4 % Normal 34.0-46.6 [facility]; [facility] Work Phone: Comment on above: PATIENT WAS FASTINGP ERFORMED BY: [facility] Qqonrj6966 [address] RoadDublin [place] [id number] Hemoglobin (Bld) [Mass/Vol] 13.6 g/dL Normal 11.1-15.9 [facility]; [facility] Work Phone: Comment on above: PATIENT WAS FASTINGP ERFORMED BY: CB [facility] Fnstvk8541 [address] RoadDublin [place] [id number] Immature granulocytes (Bld) [#/Vol] 0.0 10*3/uL Normal 0.0-0.1 [facility]; [facility] Work Phone: Comment on above: PATIENT WAS FASTINGP ERFORMED BY: CB [facility] Hdwqoj7378 [address] RoadDublin [place] [id number] Immature granulocytes/100 WBC (Bld) 0 % Normal [facility]; [facility] Work Phone: Comment on above: PATIENT WAS FASTINGP ERFORMED BY: CB [facility] Tgqoig3546 [address] RoadDublin [place] [id number] Lymphocytes (Bld) [#/Vol] 2.6 10*3/uL Normal 0.7-3.1 [facility]; [facility] Work Phone: Comment on above: PATIENT WAS FASTINGP ERFORMED BY: JAYLIN Labbenita Del Castillo6370 [address] RoadDublin [place] [id number] Lymphocytes/100 WBC (Bld) 34 % Normal [facility]; [facility] Work Phone: Comment on above: PATIENT WAS FASTINGP ERFORMED BY: JAYLIN [facility] Gbxkpl7617 [address] RoadDublin [place] [id number] MCH (RBC) [Entitic mass] 30.6 pg Normal 26.6-33.0 [facility]; [facility] Work Phone: Comment on above: PATIENT WAS FASTINGP ERFORMED BY: JAYLIN Labcoyue PaulinoXytymc4713 [address] RoadDublin [place] [id number] MCHC (RBC) [Mass/Vol] 34.5 g/dL Normal 31.5-35.7 [facility]; [facility] Work Phone: Comment on above: PATIENT WAS FASTINGP ERFORMED BY: JAYLIN Labcoyue PaulinoBhoivv5788 [address] RoadDublin [place] [id number] MCV (RBC) [Entitic vol] 89 fL Normal 79-97 [facility] centerens[facility]; [facility] Work Phone: Comment on above: PATIENT WAS FASTINGP ERFORMED BY: JAYLIN [facility] Vtgrxp6399 [address] RoadDublin [place] [id number] Monocytes (Bld) [#/Vol] 0.5 10*3/uL Normal 0.1-0.9 [facility]; [facility] Work Phone: Comment on above: PATIENT WAS FASTINGP ERFORMED BY: JAYLIN [facility] Prevuk0659 [address] RoadDublin [place] [id number] Monocytes/100 WBC (Bld) 7 % Normal [facility]; [facility] Work Phone: Comment on above: PATIENT WAS FASTINGP ERFORMED BY: JAYLIN [facility] Zjanzu0312 [address] RoadDublin [place] [id number] Neutrophils (Bld) [#/Vol] 4.2 10*3/uL Normal 1.4-7.0 [facility]; [facility] Work Phone: Comment on above: PATIENT WAS FASTINGP ERFORMED BY: JAYLIN Labcoyue Del CastilloEqqgsn8676 [address] RoadDublin [place] [id number] Neutrophils/100 WBC (Bld) 55 % Normal [facility]; [facility] Work Phone: Comment on above: PATIENT WAS FASTINGP ERFORMED BY: CB [facility] Vgmjym9244 [address] RoadDublin [place] [id number] Platelets (Bld) [#/Vol] 340 10*3/uL Normal 150-450 [facility]; [facility] Work Phone: Comment on above: PATIENT WAS FASTINGP ERFORMED BY: JAYLIN [facility] Fuegjc7153 [address] RoadDublin [place] [id number] RBC (Bld) [#/Vol] 4.45 10*6/uL Normal 3.77-5.28 [facility]; [facility] Work Phone: Comment on above: PATIENT WAS FASTINGP ERFORMED BY: JAYLIN [facility] Hyvdua5608 [address] RoadDublin [place] [id number] WBC (Bld) [#/Vol] 7.6 10*3/uL Normal 3.4-10.8 [facility] [place] [facility]; [facility] Work Phone: Comment on above: PATIENT WAS FASTINGP ERFORMED BY: JAYLIN [facility] Zpijjf1260 [address] RoadDublin [place] [id number] LIPID PANEL ([id number])Ordered B y: Director Of Home Health Services on 03-13-2023 Cholesterol [Mass/Vol] 220 mg/dL Abnormal 100-199 [facility]; [facility] Work Phone: Comment on above: PATIENT WAS FASTINGP ERFORMED BY: JAYLIN [facility] Nwmecc9417 [address] RoadDublin [place] [id number] Cholesterol in HDL [Mass/Vol] 44 mg/dL Normal [facility]; [facility] Work Phone: Comment on above: PATIENT WAS FASTINGP ERFORMED BY: JAYLIN [facility] Wixmoc3324 [address] RoadDublin [place] [id number] Triglyceride [Mass/Vol] 123 mg/dL Normal 0-149 [facility]erens[facility]; [facility] Work Phone: Comment on above: PATIENT WAS FASTINGP ERFORMED BY: JAYLIN [facility] Kxotgo8262 [address] RoadDublin [place] [id number] LIPID PANEL (10614) 22 mg/dL Normal 5-40 Compr ensive [facility]; [facility] Work Phone: Comment on above: PATIENT WAS FASTINGP ERFORMED BY: JAYLIN [facility] Metocy4620 [address] RoadDublin [place] [id number] LIPID PANEL (97023) 154 mg/dL Abnormal 0-99 Compr ensive [facility]; [facility] Work Phone: Comment on above: PATIENT WAS FASTINGP ERFORMED BY: JAYLIN [facility] Fbtfxg4647 [address]arr RoadLevine Children'S Hospitalin [place] [id number] LIPID PANEL (01336) 3.5 {ratio} Abnormal 0.0-3.2 Comp [facility]; [facility] Work Phone: Comment on above: LDL/HDL Ratio Men Wo men 1/2 Avg.Risk 1.0 1.5 Avg.Risk 3.6 3.2 2X Avg.Risk 6.2 5.0 3X Avg.Risk 8.0 6.1 PATIENT WAS FASTINGP ERFORMED BY: JAYLIN [facility] Skirnw[address] [facility] Centerin [place] [id number] METABOLIC PANEL, COMPREHENSI VE (36234)Ordered By: Director Of Home Health Services on 03-13-2023 Albumin [Mass/Vol] 4.1 g/dL Normal 3.8-4.8 [facility] [place] [facility]; [facility] Work Phone: Comment on above: PATIENT WAS FASTINGP ERFORMED BY: JAYLIN [facility] Uutdhu6766 [address] RoadDublin [place] [id number] Albumin/Globulin [Mass ratio] 1.1 {ratio} Abnormal 1.2-2.2 [facility]; [facility] Work Phone: Comment on above: PATIENT WAS FASTINGP ERFORMED BY: [facility] Xuqvfg4095 [address] RoadDublin [place] [id number] ALP [Catalytic activity/Vol] 108 U/L Normal 44-121 [facility]; [facility] Work Phone: Comment on above: PATIENT WAS FASTINGP ERFORMED BY: CB [facility] Junfdd1485 [address] RoadDublin [place] [id number] ALT [Catalytic activity/Vol] 17 U/L Normal 0-32 [facility]; [facility] Work Phone: Comment on above: PATIENT WAS FASTINGP ERFORMED BY: CB [facility] Ptbbgs5476 [address] RoadDublin [place] [id number] AST [Catalytic activity/Vol] 19 U/L Normal 0-40 [facility]; [facility] Work Phone: Comment on above: PATIENT WAS FASTINGP ERFORMED BY: [facility] Hwedve5879 [address] RoadDublin [place] [id number] Bilirubin [Mass/Vol] 0.5 mg/dL Normal 0.0-1.2 Comp rehensive [facility]; [facility] Work Phone: Comment on above: PATIENT WAS FASTINGP ERFORMED BY: [facility] Bpfyel5582 [address] RoadDublin [place] [id number] Calcium [Mass/Vol] 9.5 mg/dL Normal 8.7-10.2 [facility]; [facility] Work Phone: Comment on above: PATIENT WAS FASTINGP ERFORMED BY: [facility] Wsioef9169 [address] RoadDublin [place] [id number] Chloride [Moles/Vol] 102 mmol/L Normal 96-106 Comp rehensive [facility]; [facility] Work Phone: Comment on above: PATIENT WAS FASTINGP ERFORMED BY: CB [facility] Dticpc2977 [address] RoadDublin [place] [id number] CO2 [Moles/Vol] 21 mmol/L Normal 20-29 Comprehen [facility]; [facility] Work Phone: Comment on above: PATIENT WAS FASTINGP ERFORMED BY: JAYLIN [facility] Kssclg[address] Man [facility] [id number] Creatinine [Mass/Vol] 0.64 mg/dL Normal 0.57-1.00 [facility] prehensive Internal Medicine; [facility] Work Phone: Comment on above: PATIENT WAS FASTINGP ERFORMED BY: JAYLIN Labcoyue PaulinoJqcpaa4[address] Man [facility] [id number] GFR/1.73 sq M.predicted among non-blacks MDRD (S/P/Bld) [Vol rate/Area] 111 mL/min/{1.73_m2} Normal Comprehensi ve [facility] Medicine; [facility] Work Phone: Comment on above: PATIENT WAS FASTINGP ERFORMED BY: JAYLIN Labbenita PaulinoMuooty[address] Man [facility] [id number] Globulin (S) [Mass/Vol] 3.9 g/dL Normal 1.5-4.5 [facility]rehens[facility]; [facility] Work Phone: Comment on above: PATIENT WAS FASTINGP ERFORMED BY: JAYLIN [facility] Mfbswr[address] [facility] HospitalDuin [place] [id number] Glucose [Mass/Vol] 93 mg/dL Normal 70-99 [facility]inghamive [facility]; [facility] Work Phone: Comment on above: PATIENT WAS FASTINGP ERFORMED BY: JAYLIN [facility] Ycbuhk6[address] Man [facility] [id number] Potassium [Moles/Vol] 4.4 mmol/L Normal 3.5-5.2 [facility] prehensive Internal Medicine; [facility] Work Phone: Comment on above: PATIENT WAS FASTINGP ERFORMED BY: JAYLIN [facility] Iyxuis65[address] Man [facility] [id number] Protein [Mass/Vol] 8.0 g/dL Normal 6.0-8.5 [facility]ingham[facility]; [facility] Work Phone: Comment on above: PATIENT WAS FASTINGP ERFORMED BY: JAYLIN [facility] Xtgyjd8256 [address] RoadDublin [place] [id number] Sodium [Moles/Vol] 137 mmol/L Normal 134-144 [facility] [place] [facility]; [facility] Work Phone: Comment on above: PATIENT WAS FASTINGP ERFORMED BY: CB [facility] Fodgrt8399 [address] RoadDublin [place] [id number] Urea nitrogen [Mass/Vol] 16 mg/dL Normal 6-24 [facility]; [facility] Work Phone: Comment on above: PATIENT WAS FASTINGP ERFORMED BY: CB [facility] Zzgmet0291 [address] RoadDublin [place] [id number] Urea nitrogen/Creatinine [Mass ratio] 25 mg/mg Abnormal 9- [facility]; [facility] Work Phone: Comment on above: PATIENT WAS FASTINGP ERFORMED BY: [facility] Rrqtmj0373 [address] RoadDublin [place] [id number] MICROALBUMINOrdered By: UtiliData em Category Specialist on 03-13-2023 Albumin DL <= 20 mg/L (U) [Mass/Vol] mg/dL Normal [facility]; [facility] Work Phone: Comment on above: PATIENT WAS FASTINGP ERFORMED BY: [facility] Bllvyz5856 [address] RoadDublin [place] [id number] Albumin/Creatinine (U) [Mass ratio] <3 Normal 0-29 [facility]; [facility] Work Phone: Comment on above: Normal: 0 - 29 Moder ately increased: 30 - 300 Severely increased: >300 PATIENT WAS FASTINGP ERFORMED BY: [facility] Axvkwy1336 [address] RoadDublin [place] [id number] Creatinine (U) [Mass/Vol] 101.0 mg/dL Normal [facility]; [facility] Work Phone: Comment on above: PATIENT WAS FASTINGP ERFORMED BY: [facility] Szvqxo9588 [address] RoadDublin [place] [id number] TSH ([id number])Ordered By: Armindae m Category Specialist on 03-13-2023 TSH Qn 2.380 {uIU/mL} Normal 0.450-4.50 0 [facility]; [facility] Work Phone: Comment on above: PATIENT WAS FASTINGP ERFORMED BY: JAYLIN Juan Mozozy7009 [address] RoadDublin [place] [id number] URINALYSIS, W/ MICRO ([id number]) Ordered By: Director Of Home Health Services on 03-13-2023 Appearance (U) Clear Normal Comprehens [place] [facility]; [facility] Work Phone: Comment on above: PATIENT WAS FASTINGP ERFORMED BY: JAYLIN Yazanbenita PaulinoQrbrkj1301 [address] RoadDublin [place] [id number] Bilirubin Ql (U) Negative Normal Comprehe nsive Internal Medicine; [facility] Work Phone: Comment on above: PATIENT WAS FASTINGP ERFORMED BY: JAYLIN Paulinolin6370 [address] RoadDublin [place] [id number] Color (U) Yellow Normal [facility]; [facility] Work Phone: Comment on above: PATIENT WAS FASTINGP ERFORMED BY: JAYLIN Paulinolin6370 [address] RoadDublin [place] [id number] Glucose Ql (U) Negative Normal Comprehens [place] [facility]; [facility] Work Phone: Comment on above: PATIENT WAS FASTINGP ERFORMED BY: JAYLIN Paulinolin6370 [address] RoadDublin [place] [id number] Hemoglobin Ql (U) Negative Normal Compreh ensive [facility]; [facility] Work Phone: Comment on above: PATIENT WAS FASTINGP ERFORMED BY: JAYLIN Yazanbenita PaulinoMrcwnd5961 [address] RoadDublin [place] [id number] Ketones Ql (U) Negative Normal Comprehens [place] [facility]; [facility] Work Phone: Comment on above: PATIENT WAS FASTINGP ERFORMED BY: JAYLIN Yazanbenita PaulinoAjevgc3331 [address] RoadDublin [place] [id number] Leukocyte esterase Test strip Ql (U) Negative Normal [facility]; [facility] Work Phone: Comment on above: PATIENT WAS FASTINGP ERFORMED BY: JAYLIN Paulinolin6370 [address] RoadDublin [place] [id number] Microscopic observation LM Nom (Urine sed) MICRON Normal [facility]; [facility] Work Phone: Comment on above: Microscopic follows if indicated. PATIENT WAS FASTINGP ERFORMED BY: JAYLIN Labtristarp Pszsrf2207 [address] RoadDublin [place] [id number] Microscopic observation LM Nom (Urine sed) See below: Normal [facility]; [facility] Work Phone: Comment on above: Microscopic was nazanin cated and was performed. PATIENT WAS FASTINGP ERFORMED BY: JAYLIN Labtristarp Swgoha0031 [address] RoadDublin [place] [id number] Nitrite Ql (U) Negative Normal Comprehens [place] [facility]; [facility] Work Phone: Comment on above: PATIENT WAS FASTINGP ERFORMED BY: JAYLIN Labbenita PaulinoLwiehe9536 [address] RoadDuin [place] [id number] pH (U) 5.5 [pH] Normal 5.0-7.5 [facility]; [facility] Work Phone: Comment on above: PATIENT WAS FASTINGP ERFORMED BY: JAYLIN Labtristayue Shbrhj3618 [address] RoadDublin [place] [id number] Protein Ql (U) Negative Normal Comprehens [place] [facility]; [facility] Work Phone: Comment on above: PATIENT WAS FASTINGP ERFORMED BY: JAYLIN Labbenita PaulinoLiiaoi[address] [facility]in [place] [id number] Specific gravity (U) [Rel density] 1.021 1 Normal 1.005-1.03 0 [facility]; [facility] Work Phone: Comment on above: PATIENT WAS FASTINGP ERFORMED BY: JAYLIN [facility] Safwbv[address] [facility] HospitalDublin [place] [id number] Urobilinogen (U) [Mass/Vol] 0.2 mg/dL Normal 0.2-1.0 [facility]; [facility] Work Phone: Comment on above: PATIENT WAS FASTINGP ERFORMED BY: JAYLIN [facility] Rfhvfi3763 [address] Roadblin [place] [id number] Absolute lymphocyte counton 08-14-2022 Lymphocytes Auto (Unsp spec) [#/Vol] 2.79 10*3/uL 0.83-4.51 [facility] Work Phone: Basophil percentageon 2021 Basophil percentage 0-5 SEEN /hpf 0-5 Wo [facility] Work Phone: Basophils/100 WBC (Bld) 0.5 % 0-1 [facility] Work Phone: Chloride [Moles/Vol] 108 mmol/L 98-107 [facility] Work Phone: Eosinophils/100 WBC (Bld) 1.3 % 0-5 [facility] Work Phone: Glucose [Mass/Vol] 115 mg/dL 74-106 [facility] Work Phone: Comment on above: Fasting Glucose resu lt from 100 to 125 mg/dL suggests IMPAIRED HOMEOSTASIS per A.D.A. criteria. Neutrophils (Bld) [#/Vol] 6.1 10*3/uL 2.0-7.7 [facility] Work Phone: Neutrophils/100 WBC (Bld) 61.8 % 47-70 [facility] Work Phone: Potassium [Moles/Vol] 3.4 mmol/L 3.5-5.1 [facility] Work Phone: Sodium [Moles/Vol] 139 mmol/L 136-145 [facility] Work Phone: WBC (Bld) [#/Vol] 9.9 10*3/uL 4.4-11.0 [facility] Work Phone: Bilirubin Test strip Ql (U)o n 08-14-2022 Bilirubin Ql (U) Negative Negative [facility] Work Phone: Blood erythrocytes count (nu mber/volume)on 08-14-2022 RBC (Bld) [#/Vol] 4.33 10*6/uL 4.2-5.4 [facility] Work Phone: Blood hemoglobin measurement (mass/volume)on 08-14-2022 Hemoglobin (Bld) [Mass/Vol] 13.3 g/dL 12.0-15.0 [facility] Work Phone: Blood lymphocytes/100 leukoc yteson 08-14-2022 Lymphocytes/100 WBC (Bld) 28.1 % 19-41 [facility] Work Phone: Blood monocytes/100 leukocyt eson 08-14-2022 Monocytes/100 WBC (Bld) 8.1 % 0-10 [facility] Work Phone: Blood platelet mean volumeon 08-14-2022 Platelet mean volume (Bld) [Entitic vol] 11.1 fL 6.2-12.0 [facility] Work Phone: Determination of erythrocyte mean corpuscular volume (MCV)on 08-14-2022 MCV (RBC) [Entitic vol] 90.8 fL 81-99 [facility] Work Phone: Hematocrit Auto (Bld) [Volum e fraction]on 08-14-2022 Hematocrit (Bld) [Volume fraction] 39.3 % 37-47 [facility] Work Phone: Ketones Test strip Ql (U)on 08-14-2022 Ketones Ql (U) Negative Negative [facility] Work Phone: Laboratory - Chemistry and C hemistry - challengeon 08-14-2022 CO2 [Moles/Vol] 25.0 mmol/L 21.0-32.0 [facility] Work Phone: Urea nitrogen/Creatinine [Mass ratio] 18.0 mg/mg 10-20 [facility] Work Phone: Laboratory - Hematology and Cell countson 08-14-2022 Erythrocyte distribution width (RBC) [Entitic vol] 41.2 fL 35.1-43.9 [facility] Work Phone: Erythrocyte distribution width (RBC) [Ratio] 12.4 % 11.6-14.6 [facility] Work Phone: Immature granulocytes/100 WBC (Bld) 0.200 % 0.0-0.9 [facility] Work Phone: Comment on above: IG% - Immature Granu locytes (promyelocytes, myelocytes and metamyelocytes) > 1% indicates that a LEFT SHIFT is Present. MCH (RBC) [Entitic mass] 30.7 pg 27.0-32.0 [facility] Work Phone: Nucleated RBC/100 WBC (Bld) [Ratio] 0 % 0-5 [facility] Work Phone: MCHC Auto (RBC) [Mass/Vol]on 08-14-2022 MCHC (RBC) [Mass/Vol] 33.8 g/dL 32-36 [facility] Work Phone: Mucus LM Ql (Urine sed)on Mucus Ql (Urine sed) 0 SEEN /hpf [facility] Work Phone: Nitrite Test strip Ql (U)on 08-14-2022 Nitrite Ql (U) Negative Negative [facility] Work Phone: No Panel Informationon 08-14 Estimated Creatinine Clearance Calc 104.25 ml/min [facility] Work Phone: Estimated GFR (MDRD) Amer 136 mL/min >60 [facility] Work Phone: Comment on above: GFR Calc Estimated GFR (MDRD) Non-Af Amer 113 mL/min >60 [facility] Work Phone: Comment on above: Non- GFR Calc Platelets bldon 08-14-2022 Platelets (Bld) [#/Vol] 309 10*3/uL 150-450 [facility] Work Phone: Protein Test strip Ql (U)on 08-14-2022 Protein Ql (U) Negative Negative [facility] Work Phone: Serum or plasma calcium abbey urement (mass/volume)on 08-14-2022 Calcium [Mass/Vol] 9.3 mg/dL 8.5-10.1 [facility] [facility] Work Phone: Serum or plasma creatinine m easurement (mass/volume)on 08-14-2022 Creatinine [Mass/Vol] 0.61 mg/dL 0.55-1.02 [facility] Work Phone: Comment on above: The validity of the calculated GFR & GFRAA in patients over 70 years has not been determined. Clinical correlation is essential. Serum or plasma urea nitroge n measurement (mass/volume)on 08-14-2022 Urea nitrogen [Mass/Vol] 11 mg/dL 7-18 [facility] Work Phone: Squamous epithelial cells de tection in urine sediment by light microscopyon 08-14-2022 Epithelial cells.squamous LM Ql (Urine sed) 0-5 SEEN /hpf 5-10 [facility] Work Phone: Thin prep Papanicolaou smear with manual screeningon 08-14-2022 Thin prep Papanicolaou smear with manual screening 6 5-15 [facility] Work Phone: Urine blood detectionon 07-21 RBC Ql (U) Negative Negative [facility] Work Phone: RBC Ql (U) 0 SEEN /hpf 0-5 [facility] Work Phone: Urine clarityon 08-14-2022 Clarity (U) Sl. Cloudy Clear [facility] Work Phone: Urine color determinationon 08-14-2022 Color (U) Yellow Yellow [facility] Work Phone: Urine glucose detectionon Glucose Ql (U) Normal mg/dl Normal [facility] Work Phone: Urine leukocyte esterase det ection by dipstickon 08-14-2022 Leukocyte esterase Test strip Ql (U) 25 /ul Negative [facility] Work Phone: Urine pHon 08-14-2022 pH (U) 6.0 [pH] 5.0 - 8.0 [facility] Work Phone: Urine sediment bacteria coun t by microscopy (number/high power field)on 08-14-2022 Bacteria LM.HPF (Urine sed) [#/Area] 1 /[HPF] None Seen [facility] Work Phone: Urine specific gravity measu rementon 08-14-2022 Specific gravity (U) [Rel density] 1.010 1.002-1.03 0 [facility] Work Phone: Urobilinogen Auto test strip Ql (U)on 08-14-2022 Urobilinogen Ql (U) Normal mg/dl Normal [facility] Work Phone: CBC W/AUTO DIFF WBC ([id number])O rdered By: Director Of Home Health Services on 03-28-2022 Basophils (Bld) [#/Vol] 0.1 10*3/uL Normal 0.0-0.2 [facility] Work Phone: Comment on above: PATIENT NOT FASTINGP ERFORMED BY: [employer] Textronicsblin [place] [id number] Basophils/100 WBC (Bld) 1 % Normal [facility]; [facility] Work Phone: Comment on above: PATIENT NOT FASTINGP ERFORMED BY: [employer] Mag[employer] LabDragonplay[address] [facility] HealthD[place] [id number] Eosinophils (Bld) [#/Vol] 0.3 10*3/uL Normal 0.0-0.4 [facility] Work Phone: Comment on above: PATIENT NOT FASTINGP ERFORMED BY: [employer] Magpie LabAirbnbrp Ztzrps[address] RoadDublin [place] [id number] Eosinophils/100 WBC (Bld) 3 % Normal [facility]; [facility] Work Phone: Comment on above: PATIENT NOT FASTINGP ERFORMED BY: [employer] LabPOTATOSOFT Kdrajt[address] [facility] HealthDublin [place] [id number] Erythrocyte distribution width (RBC) [Ratio] 12.5 % Normal 11.7-15.4 [facility]; [facility] Work Phone: Comment on above: PATIENT NOT FASTINGP ERFORMED BY: JAYLIN [facility] [id number] RoadDublin [place] [id number] Hematocrit (Bld) [Volume fraction] 40.6 % Normal 34.0-46.6 [facility] Work Phone: Comment on above: PATIENT NOT FASTINGP ERFORMED BY: CB [facility] Tabqri4[address] RoadDublin [place] [id number] Hemoglobin (Bld) [Mass/Vol] 13.7 g/dL Normal 11.1-15.9 [facility]; [facility] Work Phone: Comment on above: PATIENT NOT FASTINGP ERFORMED BY: CB [facility] Isqnjv8381 Tsarr RoadDublin [place] [id number] Immature granulocytes (Bld) [#/Vol] 0.0 10*3/uL Normal 0.0-0.1 [facility] Work Phone: Comment on above: PATIENT NOT FASTINGP ERFORMED BY: CB [facility] Dyxnum0292 [address] RoadDublin [place] [id number] Immature granulocytes/100 WBC (Bld) 0 % Normal [facility]; [facility] Work Phone: Comment on above: PATIENT NOT FASTINGP ERFORMED BY: CB [facility] Gfzjmu4[address] RoadDublin [place] [id number] Lymphocytes (Bld) [#/Vol] 2.9 10*3/uL Normal 0.7-3.1 [facility] Work Phone: Comment on above: PATIENT NOT FASTINGP ERFORMED BY: CB [facility] Muevjm8978 [address] RoadDublin [place] [id number] Lymphocytes/100 WBC (Bld) 34 % Normal [facility]; [facility] Work Phone: Comment on above: PATIENT NOT FASTINGP ERFORMED BY: CB [facility] Dtikre3273 Tsarr RoadDublin [place] [id number] MCH (RBC) [Entitic mass] 30.6 pg Normal 26.6-33.0 [facility]; [facility] Work Phone: Comment on above: PATIENT NOT FASTINGP ERFORMED BY: JAYLIN Labbenita Del Castillo[address] RoadDublin [place] [id number] MCHC (RBC) [Mass/Vol] 33.7 g/dL Normal 31.5-35.7 [facility] prehensive [facility]; [facility] Work Phone: Comment on above: PATIENT NOT FASTINGP ERFORMED BY: CB [facility] Qqlqcl8[address] RoadDublin [place] [id number] MCV (RBC) [Entitic vol] 91 fL Normal 79-97 [facility]; [facility] Work Phone: Comment on above: PATIENT NOT FASTINGP ERFORMED BY: JAYLIN Labcoyue PaulinoGxmgud01[address] RoadDublin [place] [id number] Monocytes (Bld) [#/Vol] 0.7 10*3/uL Normal 0.1-0.9 [facility]; [facility] Work Phone: Comment on above: PATIENT NOT FASTINGP ERFORMED BY: CB [facility] Lwaszz87[address] RoadDublin [place] [id number] Monocytes/100 WBC (Bld) 8 % Normal [facility]; [facility] Work Phone: Comment on above: PATIENT NOT FASTINGP ERFORMED BY: CB [facility] Hsvgha4154 [address] RoadDublin [place] [id number] Neutrophils (Bld) [#/Vol] 4.7 10*3/uL Normal 1.4-7.0 [facility]; [facility] Work Phone: Comment on above: PATIENT NOT FASTINGP ERFORMED BY: CB [facility] Ifpmay52[address] RoadDublin [place] [id number] Neutrophils/100 WBC (Bld) 54 % Normal [facility]; [facility] Work Phone: Comment on above: PATIENT NOT FASTINGP ERFORMED BY: CB [facility] Dqvmjc9[address] RoadDublin [place] [id number] Platelets (Bld) [#/Vol] 332 10*3/uL Normal 150-450 [facility]; [facility] Work Phone: Comment on above: PATIENT NOT FASTINGP ERFORMED BY: [facility]Tr[facility]6[address] [facility] [id number] RBC (Bld) [#/Vol] 4.48 10*6/uL Normal 3.77-5.28 [facility]; [facility] Work Phone: Comment on above: PATIENT NOT FASTINGP ERFORMED BY: LabTr[facility]6[address] [facility] [id number] WBC (Bld) [#/Vol] 8.6 10*3/uL Normal 3.4-10.8 [facility]; [facility] Work Phone: Comment on above: PATIENT NOT FASTINGP ERFORMED BY: LabTr[facility]6370 [facility] [id number] Absolute lymphocyte counton 03-06-2022 Lymphocytes Auto (Unsp spec) [#/Vol] 2.67 10*3/uL 0.83-4.51 [facility] Work Phone: Basophil percentageon 2021 Basophils/100 WBC (Bld) 0.4 % 0-1 [facility] Work Phone: Bilirubin [Mass/Vol] 0.50 mg/dL 0.20-1.00 [facility] Work Phone: Comment on above: For patients on eltr ombopag therapy, use of Dimension [place] TBIL is not recommended. Chloride [Moles/Vol] 105 mmol/L 98-107 [facility] Work Phone: Cholesterol [Mass/Vol] 213 mg/dL <200 [facility] Work Phone: Comment on above: <200 mg/dL Desirable 200-240 mg/dL Borderline >240 mg/dL High Risk Eosinophils/100 WBC (Bld) 0.6 % 0-5 [facility] Work Phone: Glucose [Mass/Vol] 94 mg/dL 74-106 [facility] Work Phone: Neutrophils (Bld) [#/Vol] 12.3 10*3/uL 2.0-7.7 [facility] Work Phone: Neutrophils/100 WBC (Bld) 77.3 % 47-70 [facility] Work Phone: Potassium [Moles/Vol] 4.1 mmol/L 3.5-5.1 [facility] Work Phone: Protein [Mass/Vol] 7.9 g/dL 6.4-8.2 [facility] Work Phone: Sodium [Moles/Vol] 139 mmol/L 136-145 [facility] Work Phone: Triglyceride [Mass/Vol] 118 mg/dL [facility] Work Phone: Comment on above: The drugs N-Acetylcy steine and Metamizole may falsely depress this assay.Serum Triglycerides Reference Interval Normal <150 mg/dL Borderline high 150 - 199 mg/dL High 200 - 499 mg/dL Very High > or = 500 mg/dL WBC (Bld) [#/Vol] 15.9 10*3/uL 4.4-11.0 [facility] Work Phone: Blood erythrocytes count (nu mber/volume)on 03-06-2022 RBC (Bld) [#/Vol] 4.53 10*6/uL 4.2-5.4 [facility] Work Phone: Blood hemoglobin measurement (mass/volume)on 03-06-2022 Hemoglobin (Bld) [Mass/Vol] 13.7 g/dL 12.0-15.0 [facility] Work Phone: Blood lymphocytes/100 leukoc yteson 03-06-2022 Lymphocytes/100 WBC (Bld) 16.8 % 19-41 [facility] Work Phone: Blood monocytes/100 leukocyt eson 05-18-2022 Monocytes/100 WBC (Bld) 4.5 % 0-10 [facility] Work Phone: Blood platelet mean volumeon 03-06-2022 Platelet mean volume (Bld) [Entitic vol] 11.6 fL 6.2-12.0 [facility] Work Phone: Determination of erythrocyte mean corpuscular volume (MCV)on 03-06-2022 MCV (RBC) [Entitic vol] 93.4 fL 81-99 [facility] Work Phone: Hematocrit Auto (Bld) [Volum e fraction]on 03-06-2022 Hematocrit (Bld) [Volume fraction] 42.3 % 37-47 [facility] Work Phone: Laboratory - Chemistry and C hemistry - challengeon 03-06-2022 ALP [Catalytic activity/Vol] 90 U/L 45-117 [facility] Work Phone: ALT [Catalytic activity/Vol] 26 U/L 13-56 [facility] Work Phone: CO2 [Moles/Vol] 25.0 mmol/L 21.0-32.0 [facility] Work Phone: Globulin (S) [Mass/Vol] 4.7 g/dL 2.2-4.2 [facility] Work Phone: Urea nitrogen/Creatinine [Mass ratio] 14.0 mg/mg 10-20 [facility] Work Phone: Laboratory - Hematology and Cell countson 03-06-2022 Erythrocyte distribution width (RBC) [Entitic vol] 43.2 fL 35.1-43.9 [facility] Work Phone: Erythrocyte distribution width (RBC) [Ratio] 12.6 % 11.6-14.6 [facility] Work Phone: Immature granulocytes/100 WBC (Bld) 0.400 % 0.0-0.9 [facility] Work Phone: Comment on above: IG% - Immature Granu locytes (promyelocytes, myelocytes and metamyelocytes) > 1% indicates that a LEFT SHIFT is Present. MCH (RBC) [Entitic mass] 30.2 pg 27.0-32.0 [facility] Work Phone: Nucleated RBC/100 WBC (Bld) [Ratio] 0 % 0-5 [facility] Work Phone: MCHC Auto (RBC) [Mass/Vol]on 03-06-2022 MCHC (RBC) [Mass/Vol] 32.4 g/dL 32-36 [facility] Work Phone: No Panel Informationon 03-06 Estimated GFR (MDRD) Amer 129 mL/min >60 [facility] Work Phone: Comment on above: GFR Calc Estimated GFR (MDRD) Non-Af Amer 106 mL/min >60 [facility] Work Phone: Comment on above: Non- GFR Calc Thyroid Stimulating Hormone (TSH) 3.39 uIU/mL 0.358-3.74 [facility] Work Phone: Urine Microalbumin/Creatinine Ratio 16.0 mg/g CRE <30 [facility] Work Phone: Platelets bldon 03-06-2022 Platelets (Bld) [#/Vol] 320 10*3/uL 150-450 [facility] Work Phone: Serum or plasma albumin abbey urement (mass/volume)on 03-06-2022 Albumin [Mass/Vol] 3.2 g/dL 3.2-5.0 [facility] Work Phone: Serum or plasma albumin/glob ulin mass ratioon 03-06-2022 Albumin/Globulin [Mass ratio] 0.7 {ratio} 0.9-2.4 [facility] Work Phone: Serum or plasma calcium abbey urement (mass/volume)on 03-06-2022 Calcium [Mass/Vol] 8.8 mg/dL 8.5-10.1 [facility] Work Phone: Serum or plasma cholesterol in HDL measurement (mass/volume)on 03-06-2022 Cholesterol in HDL [Mass/Vol] 48 mg/dL [facility] Work Phone: Comment on above: The drugs N-Acetylcy steine and Metamizole may falsely depress this assay. Reference Range HDL <40 mg/dL Low HDL Cholesterol HDL >or= 60 mg/dL High HDL Cholesterol Serum or plasma cholesterol in VLDL measurement (mass/volume)on 03-06-2022 Cholesterol in VLDL [Mass/Vol] 24 mg/dL 5-40 [facility] Work Phone: Serum or plasma creatinine m easurement (mass/volume)on 03-06-2022 Creatinine [Mass/Vol] 0.64 mg/dL 0.55-1.02 [facility] Work Phone: Comment on above: The validity of the calculated GFR & GFRAA in patients over 70 years has not been determined. Clinical correlation is essential. Serum or plasma low density lipoprotein (LDL) cholesterol measurement (mass/volume)on 03-06-2022 Cholesterol in LDL [Mass/Vol] 141 mg/dL 0-130 [facility] Work Phone: Serum or plasma urea nitroge n measurement (mass/volume)on 03-06-2022 Urea nitrogen [Mass/Vol] 9 mg/dL 7-18 [facility] Work Phone: Thin prep Papanicolaou smear with manual screeningon 03-06-2022 Thin prep Papanicolaou smear with manual screening 24 U/L 15-37 [facility] Work Phone: Thin prep Papanicolaou smear with manual screening 9 5-15 [facility] Work Phone: Thin prep Papanicolaou smear with manual screening 11.6 mg/L NO RANGE EST. [facility] Work Phone: Urine creatinine measurement (mass/volume)on 03-06-2022 Creatinine (U) [Mass/Vol] 72.50 mg/dL NO RANGE EST. [facility] Work Phone: Absolute lymphocyte counton 03-02-2022 Lymphocytes Auto (Unsp spec) [#/Vol] 2.27 10*3/uL 0.83-4.51 [facility] Work Phone: Basophil percentageon 2021 Basophil percentage 0 SEEN /hpf [facility] Work Phone: Basophils/100 WBC (Bld) 0.8 % 0-1 [facility] Work Phone: Bilirubin [Mass/Vol] 0.50 mg/dL 0.20-1.00 [facility] Work Phone: Comment on above: For patients on eltr ombopag therapy, use of Dimension [place] TBIL is not recommended. Chloride [Moles/Vol] 109 mmol/L 98-107 [facility] Work Phone: Eosinophils/100 WBC (Bld) 2.5 % 0-5 [facility] Work Phone: Glucose [Mass/Vol] 103 mg/dL 74-106 [facility] Work Phone: Comment on above: Fasting Glucose resu lt from 100 to 125 mg/dL suggests IMPAIRED HOMEOSTASIS per A.D.A. criteria. Neutrophils (Bld) [#/Vol] 4.4 10*3/uL 2.0-7.7 [facility] Work Phone: Neutrophils/100 WBC (Bld) 58.5 % 47-70 [facility] Work Phone: Potassium [Moles/Vol] 3.7 mmol/L 3.5-5.1 [facility] Work Phone: Protein [Mass/Vol] 8.2 g/dL 6.4-8.2 [facility] Work Phone: Sodium [Moles/Vol] 138 mmol/L 136-145 [facility] Work Phone: WBC (Bld) [#/Vol] 7.5 10*3/uL 4.4-11.0 [facility] Work Phone: Beta hCG serum qualon 2021 Beta HCG ( test) Ql Negative [facility] Work Phone: Bilirubin Test strip Ql (U)o n 03-02-2022 Bilirubin Ql (U) Negative Negative [facility] Work Phone: Blood erythrocytes count (nu mber/volume)on 03-02-2022 RBC (Bld) [#/Vol] 4.32 10*6/uL 4.2-5.4 [facility] Work Phone: Blood hemoglobin measurement (mass/volume)on 03-02-2022 Hemoglobin (Bld) [Mass/Vol] 13.4 g/dL 12.0-15.0 [facility] Work Phone: Blood lymphocytes/100 leukoc yteson 03-02-2022 Lymphocytes/100 WBC (Bld) 30.3 % 19-41 [facility] Work Phone: Blood monocytes/100 leukocyt eson 03-02-2022 Monocytes/100 WBC (Bld) 7.6 % 0-10 [facility] Work Phone: Blood platelet mean volumeon 03-02-2022 Platelet mean volume (Bld) [Entitic vol] 10.5 fL 6.2-12.0 [facility] Work Phone: Determination of erythrocyte mean corpuscular volume (MCV)on 03-02-2022 MCV (RBC) [Entitic vol] 94.0 fL 81-99 [facility] Work Phone: Hematocrit Auto (Bld) [Volum e fraction]on 03-02-2022 Hematocrit (Bld) [Volume fraction] 40.6 % 37-47 [facility] Work Phone: Ketones Test strip Ql (U)on 03-02-2022 Ketones Ql (U) Negative Negative [facility] Work Phone: Laboratory - Chemistry and C hemistry - challengeon 03-02-2022 ALP [Catalytic activity/Vol] 86 U/L 45-117 [facility] Work Phone: ALT [Catalytic activity/Vol] 20 U/L 13-56 [facility] Work Phone: CO2 [Moles/Vol] 22.0 mmol/L 21.0-32.0 [facility] Work Phone: Globulin (S) [Mass/Vol] 5.1 g/dL 2.2-4.2 [facility] Work Phone: Lipase [Catalytic activity/Vol] 64 U/L 73-393 [facility] Work Phone: Urea nitrogen/Creatinine [Mass ratio] 18.5 mg/mg 10-20 [facility] Work Phone: Laboratory - Hematology and Cell countson 03-02-2022 Erythrocyte distribution width (RBC) [Entitic vol] 43.3 fL 35.1-43.9 [facility] Work Phone: Erythrocyte distribution width (RBC) [Ratio] 12.5 % 11.6-14.6 [facility] Work Phone: Immature granulocytes/100 WBC (Bld) 0.300 % 0.0-0.9 [facility] Work Phone: Comment on above: IG% - Immature Granu locytes (promyelocytes, myelocytes and metamyelocytes) > 1% indicates that a LEFT SHIFT is Present. MCH (RBC) [Entitic mass] 31.0 pg 27.0-32.0 [facility] Work Phone: Nucleated RBC/100 WBC (Bld) [Ratio] 0 % 0-5 [facility] Work Phone: MCHC Auto (RBC) [Mass/Vol]on 03-02-2022 MCHC (RBC) [Mass/Vol] 33.0 g/dL 32-36 [facility] Work Phone: Mucus LM Ql (Urine sed)on Mucus Ql (Urine sed) 0 SEEN /hpf [facility] Work Phone: Nitrite Test strip Ql (U)on 03-02-2022 Nitrite Ql (U) Negative Negative [facility] Work Phone: No Panel Informationon 03-02 Estimated Creatinine Clearance Calc 103.39 ml/min [facility] Work Phone: Estimated GFR (MDRD) Amer 127 mL/min >60 [facility] Work Phone: Comment on above: GFR Calc Estimated GFR (MDRD) Non-Af Amer 105 mL/min >60 [facility] Work Phone: Comment on above: Non- GFR Calc Platelets bldon 03-02-2022 Platelets (Bld) [#/Vol] 307 10*3/uL 150-450 [facility] Work Phone: Protein Test strip Ql (U)on 03-02-2022 Protein Ql (U) Negative Negative [facility] Work Phone: Serum or plasma albumin abbey urement (mass/volume)on 03-02-2022 Albumin [Mass/Vol] 3.1 g/dL 3.2-5.0 [facility] Work Phone: Serum or plasma albumin/glob ulin mass ratioon 03-02-2022 Albumin/Globulin [Mass ratio] 0.6 {ratio} 0.9-2.4 [facility] Work Phone: Serum or plasma calcium abbey urement (mass/volume)on 03-02-2022 Calcium [Mass/Vol] 8.8 mg/dL 8.5-10.1 [facility] Work Phone: Serum or plasma creatinine m easurement (mass/volume)on 03-02-2022 Creatinine [Mass/Vol] 0.65 mg/dL 0.55-1.02 [facility] Work Phone: Comment on above: The validity of the calculated GFR & GFRAA in patients over 70 years has not been determined. Clinical correlation is essential. Serum or plasma urea nitroge n measurement (mass/volume)on 03-02-2022 Urea nitrogen [Mass/Vol] 12 mg/dL 7-18 [facility] Work Phone: Squamous epithelial cells de tection in urine sediment by light microscopyon 03-02-2022 Epithelial cells.squamous LM Ql (Urine sed) 0-5 SEEN /hpf [facility] Work Phone: Thin prep Papanicolaou smear with manual screeningon 03-02-2022 Thin prep Papanicolaou smear with manual screening 14 U/L 15-37 [facility] Work Phone: Thin prep Papanicolaou smear with manual screening 7 5-15 [facility] Work Phone: Urine blood detectionon 02-17 RBC Ql (U) Negative Negative [facility] Work Phone: RBC Ql (U) 0 SEEN /hpf [facility] Work Phone: Urine clarityon 03-02-2022 Clarity (U) Clear Clear [facility] Work Phone: Urine color determinationon 03-02-2022 Color (U) Yellow Yellow [facility] Work Phone: Urine glucose detectionon Glucose Ql (U) Normal mg/dl Normal [facility] Work Phone: Urine leukocyte esterase det ection by dipstickon 03-02-2022 Leukocyte esterase Test strip Ql (U) Negative Negative [facility] Work Phone: Urine pHon 03-02-2022 pH (U) 6.5 [pH] [facility] Work Phone: Urine sediment bacteria coun t by microscopy (number/high power field)on 03-02-2022 Bacteria LM.HPF (Urine sed) [#/Area] 0 /[HPF] None Seen [facility] Work Phone: Urine specific gravity measu rementon 03-02-2022 Specific gravity (U) [Rel density] 1.005 [facility] Work Phone: Urobilinogen Auto test strip Ql (U)on 03-02-2022 Urobilinogen Ql (U) Normal mg/dl Normal [facility] Work Phone: DESMOND CULTURE-OTHER ([id number])Ord ered By: Lesli Márquez on 12-28-2008 Bacteria identified Respiratory culture Nom (Unsp spec) Final report Normal [facility] Work Phone: Comment on above: PATIENT NOT FASTINGC linical Information: SRC:THRT ADD [id number] PERFORMED BY: [employer] [id number] [facility] [id number] Bacteria identified Respiratory culture Nom (Unsp spec) RRF Normal [facility]; [facility] Work Phone: Comment on above: Routine respiratory lisa PATIENT NOT FASTINGC linical Information: SRC:THRT ADD [id number] PERFORMED BY: [employer] [address] [place] [address] [id number] INFLUENZA IMMUNOASSY DIRECT OPTICAL OBSERV ([id number])Ordered By: Octavia Alejo on 12-28-2008 FLUAV Ag IA Ql (Throat) Negative Normal [facility]; [facility] Work Phone: Comment on above: a and b Rapid Strep Test, Office (02 [phone])on 12-28-2008 S. pyogenes Ag EIA Ql (Throat) Negative Normal [facility]; [facility] Work Phone: LIPID PANEL ([id number])Ordered B y: Lesli Márquez on 11-25-2008 Cholesterol [Mass/Vol] 229 mg/dL Abnormal 100-199 [facility]; [facility] Work Phone: Comment on above: PATIENT WAS FASTINGC linical Information: ADD DRAW FEE [id number] ADD J [id number] PERFORMED BY: [employer] [id number] [facility] [id number] Cholesterol in HDL [Mass/Vol] 61 mg/dL Normal [facility]; [facility] Work Phone: Comment on above: According to ATP-III Guidelines, HDL-C >59 mg/dL is considered anegative risk factor for CHD. PATIENT WAS FASTINGC linical Information: ADD DRAW FEE [id number] ADD J [id number] PERFORMED BY: [employer] [id number] [facility] [id number] Cholesterol in LDL [Mass/Vol] 141 mg/dL Abnormal 0-99 [facility]; [facility] Work Phone: Comment on above: PATIENT WAS FASTINGC linical Information: ADD DRAW FEE [id number] ADD J [id number] PERFORMED BY: [employer] [id number] [facility] [id number] Cholesterol in LDL/Cholesterol in HDL [Mass ratio] SPRCS Normal [facility]; [facility] Work Phone: Comment on above: If initial LDL-ariadna sterol result is >100 mg/dL, assess forrisk factors. PATIENT WAS FASTINGC linical Information: ADD DRAW FEE [id number] ADD J [id number] PERFORMED BY: JAYLIN [employer] [id number] [facility] [id number] Cholesterol in LDL/Cholesterol in HDL [Mass ratio] 2.3 {ratio_units} Normal 0.0-3.2 [facility]; [facility] Work Phone: Comment on above: PATIENT WAS FASTINGC linical Information: ADD DRAW FEE [id number] ADD J [id number] PERFORMED BY: [employer] [id number] [facility] [id number] Cholesterol in VLDL [Mass/Vol] 27 mg/dL Normal 5-40 [facility]; [facility] Work Phone: Comment on above: PATIENT WAS FASTINGC linical Information: ADD DRAW FEE [id number] ADD J [id number] PERFORMED BY: [employer] [id number] [facility] [id number] Triglyceride [Mass/Vol] 136 mg/dL Normal 0-149 [facility]; [facility] Work Phone: Comment on above: PATIENT WAS FASTINGC linical Information: ADD DRAW FEE [id number] ADD J [id number] PERFORMED BY: [employer] [id number] [facility] [id number] T3, FREE (TRIDOTHYRONINE) ([id number])Ordered By: Lesli Márquez on 11-25-2008 Free T3 [Mass/Vol] 2.8 pg/mL Normal 2.3-4.2 [facility] Internal Medicine; [facility] Work Phone: Comment on above: PATIENT WAS FASTINGP ERFORMED BY: [employer] [id number] [facility] [id number] T4, FREE (THYROXINE) ([id number]) Ordered By: Lesli Márquez on 11-25-2008 Free T4 [Mass/Vol] 1.04 ng/dL Normal 0.61-1.76 [facility]; [facility] Work Phone: Comment on above: PATIENT WAS FASTINGP ERFORMED BY: [employer] [id number] [facility] [id number] TSH ([id number])Ordered By: Nick Márquez on 11-25-2008 TSH Qn 2.662 {uIU/mL} Normal 0.450-4.50 0 [facility]; [facility] Work Phone: Comment on above: PATIENT WAS FASTINGP ERFORMED BY: [employer] [id number] [facility] [id number] Vital Signs Date Time Vital Sign Value Performing Clinician Facility 02-11-2025 09:19-0400 Body temperature 98.2 [degF] Dr. Lesli Márquez DO Work Phone: [facility] 02-11-2025 09:19-0400 Body weight 127.[address] Lesli Márquez DO Work Phone: [facility] 02-11-2025 09:19-0400 Diastolic blood pressure 88 mm[Hg] Dr. Lesli Márquez DO Work Phone: [facility] 02-11-2025 09:19-0400 Heart rate 88 /min Dr. Lesli Márquez DO Work Phone: [facility] 02-11-2025 09:19-0400 Respiratory rate 17 /min Dr. Lesli Márquez DO Work Phone: [facility] 02-11-2025 09:19-0400 SaO2% (BldA) [Mass fraction] 98 % Dr. Lesli Márquez DO Work Phone: [facility] 02-11-2025 09:19-0400 Systolic blood pressure 148 mm[Hg] Dr. Lesli Márquez DO Work Phone: [facility] 03-13-2023 07:05-0400 Body height 169.55 cm zakiya [facility]; [facility] Work Phone: 03-13-2023 07:05-0400 Body mass index (BMI) [Ratio] 41.54 kg/m2 [facility]; [facility] Work Phone: 03-13-2023 07:05-0400 Body surface area Derived from formula 2.27 m2 [facility]; [facility] Work Phone: 03-13-2023 07:05-0400 Body temperature 97 [degF] [facility]; [facility] Work Phone: 03-13-2023 07:05-0400 Body weight 119.41 kg [facility]; [facility] Work Phone: 03-13-2023 07:05-0400 Diastolic blood pressure 80 mm[Hg] [facility]; [facility] Work Phone: Comment on above: Patient Position: Sitting; Cuff Location : Left Arm; Cuff Size: Standard 03-13-2023 07:05-0400 Heart rate 98 /min [facility]; [facility] Work Phone: Comment on above: Pattern: Regular 03-13-2023 07:05-0400 Respiratory rate 16 /min [facility]; [facility] Work Phone: Comment on above: Pattern: Unlabored 03-13-2023 07:05-0400 SaO2% (BldA) [Mass fraction] 97 % [facility]; [facility] Work Phone: Comment on above: Room air 03-13-2023 07:05-0400 Systolic blood pressure 120 mm[Hg] [facility]; [facility] Work Phone: Comment on above: Patient Position: Sitting; Cuff Location : Left Arm; Cuff Size: Standard 11-14-2022 11:40-0500 Body height 169.55 cm [facility]; [facility] Work Phone: 11-14-2022 11:40-0500 Body mass index (BMI) [Ratio] 40.45 kg/m2 [facility]; [facility] Work Phone: 11-14-2022 11:40-0500 Body surface area Derived from formula 2.24 m2 [facility] Internal Medicine; [facility] Work Phone: 11-14-2022 11:40-0500 Body temperature 97.8 [degF] [facility]; [facility] Work Phone: 11-14-2022 11:40-0500 Body weight 116.29 kg [facility]; [facility] Work Phone: 11-14-2022 11:40-0500 Diastolic blood pressure 80 mm[Hg] [facility]; [facility] Work Phone: Comment on above: Patient Position: Sitting; Cuff Location : Left Arm; Cuff Size: Standard 11-14-2022 11:40-0500 Heart rate 110 /min [facility]; [facility] Work Phone: Comment on above: Pattern: Regular 11-14-2022 11:40-0500 Respiratory rate 16 /min [facility]; [facility] Work Phone: Comment on above: Pattern: Unlabored 11-14-2022 11:40-0500 SaO2% (BldA) [Mass fraction] 98 % [facility]; [facility] Work Phone: Comment on above: Room air 11-14-2022 11:40-0500 Systolic blood pressure 130 mm[Hg] [facility]; [facility] Work Phone: Comment on above: Patient Position: Sitting; Cuff Location : Left Arm; Cuff Size: Standard 10-09-2022 13:10-0500 Body temperature 96.4 [degF] [facility]; [facility] Work Phone: 10-09-2022 13:10-0500 Diastolic blood pressure 80 mm[Hg] [facility]; [facility] Work Phone: Comment on above: Patient Position: Sitting; Cuff Location : Left Arm; Cuff Size: Standard 10-09-2022 13:10-0500 Heart rate 75 /min [facility]; [facility] Work Phone: Comment on above: Pattern: Regular 10-09-2022 13:10-0500 Respiratory rate 16 /min [facility]; [facility] Work Phone: Comment on above: Pattern: Unlabored 10-09-2022 13:10-0500 SaO2% (BldA) [Mass fraction] 99 % [facility]; [facility] Work Phone: Comment on above: Room air 10-09-2022 13:10-0500 Systolic blood pressure 132 mm[Hg] [facility]; [facility] Work Phone: Comment on above: Patient Position: Sitting; Cuff Location : Left Arm; Cuff Size: Standard 09-11-2022 15:09-0500 Body height 169.55 cm [facility]; [facility] Work Phone: 09-11-2022 15:09-0500 Body mass index (BMI) [Ratio] 40.45 kg/m2 [facility]; [facility] Work Phone: 09-11-2022 15:09-0500 Body surface area Derived from formula 2.24 m2 [facility]; [facility] Work Phone: 09-11-2022 15:09-0500 Body temperature 96.9 [degF] [facility]; [facility] Work Phone: 09-11-2022 15:09-0500 Body weight 116.29 kg [facility]; [facility] Work Phone: 09-11-2022 15:09-0500 [facility] blood [facility] 84 mm[facility]Hg[facility]; [facility] Work Phone: Comment on above: Patient Position: Sitting; Cuff Location : Left Arm; Cuff Size: Standard 09-11-2022 15:09-0500 Heart rate 99 /min [facility]; [facility] Work Phone: Comment on above: Pattern: Regular 09-11-2022 15:09-0500 Respiratory rate 16 /min [facility] Internal [facility]; [facility] Work Phone: Comment on above: Pattern: Unlabored 09-11-2022 15:09-0500 SaO2% (BldA) [Mass fraction] 99 % [facility]; [facility] Work Phone: Comment on above: Room air 09-11-2022 15:09-0500 Systolic blood pressure 124 mm[Hg] [facility]; [facility] Work Phone: Comment on above: Patient Position: Sitting; Cuff Location : Left Arm; Cuff Size: Standard 08-16-2022 08:38-0400 Body height 169.55 cm Saleem Rodriguez [facility]; [facility] Work Phone: 08-16-2022 08:38-0400 Body mass index (BMI) [Ratio] 40.55 kg/m2 Saleem Rodriguez [facility]; [facility] Work Phone: 08-16-2022 08:38-0400 Body surface area Derived from formula 2.24 m2 Saleem Rodriguez [facility]; [facility] Work [...] 08-14-2022 16:03-0400 Diastolic blood pressure 92 mm[Hg] [facility] Work Phone: 08-14-2022 16:03-0400 Heart rate 100 /min [facility] Work Phone: 08-14-2022 16:03-0400 Respiratory rate 15 /min [facility] Work Phone: 08-14-2022 16:03-0400 SaO2% (BldA) [Mass fraction] 99 % [facility] Work Phone: 08-14-2022 16:03-0400 Systolic blood pressure 163 mm[Hg] [facility] Work Phone: 08-14-2022 13:43-0400 Body height 165.1 cm [facility] Work Phone: 08-14-2022 13:43-0400 Body mass index (BMI) [Ratio] 20.5 kg/m2 [facility] Work Phone: 08-14-2022 13:43-0400 Body temperature 98.3 [degF] [facility] Work Phone: 08-14-2022 13:43-0400 Body weight 56.1 kg [facility] Work Phone: 07-10-2022 16:04-0400 Body height 169.55 cm [facility]; [facility] Work Phone: 07-10-2022 16:04-0400 Body mass index (BMI) [Ratio] 41.68 kg/m2 [facility]; [facility] Work Phone: 07-10-2022 16:04-0400 Body surface area Derived from formula 2.27 m2 [facility]; [facility] Work Phone: 07-10-2022 16:04-0400 Body temperature 97.1 [degF] [facility]; [facility] Work Phone: 07-10-2022 16:04-0400 Body weight 119.81 kg [facility]; [facility] Work Phone: 07-10-2022 16:04-0400 Diastolic blood pressure 80 mm[Hg] [facility]; [facility] Work Phone: Comment on above: Patient Position: Sitting; Cuff Location : Left Arm; Cuff Size: Standard 07-10-2022 16:04-0400 Heart rate 102 /min [facility]; [facility] Work Phone: Comment on above: Pattern: Regular 07-10-2022 16:04-0400 Respiratory rate 16 /min [facility]; [facility] Work Phone: Comment on above: Pattern: Unlabored 07-10-2022 16:04-0400 SaO2% (BldA) [Mass fraction] 97 % Austin Cedillo [facility]; [facility] Work Phone: Comment on above: Room air 07-10-2022 16:04-0400 Systolic blood pressure 130 mm[Hg] Austin Cedillo [facility]; [facility] Work Phone: Comment on above: Patient Position: Sitting; Cuff Location : Left Arm; Cuff Size: Standard 05-16-2022 08:35-0400 Body height 169.55 cm Sofiya Logan [facility]; [facility] Work Phone: 05-16-2022 08:35-0400 Body mass index (BMI) [Ratio] 42.29 kg/m2 Sofiya Logan [facility]; [facility] Work Phone: 05-16-2022 08:35-0400 Body surface area Derived from formula 2.28 m2 Sofiya Logan [facility]; [facility] Work Phone: 05-16-2022 08:35-0400 Body temperature 97.3 [degF] Sofiya Logan [facility]; [facility] Work Phone: Comment on above: Method: Infrared 05-16-2022 08:35-0400 Body weight 121.56 kg Sofiya Logan [facility]; [facility] Work Phone: 05-16-2022 08:35-0400 Diastolic blood pressure 84 mm[Hg] Sofiya Logan [facility]; [facility] Work Phone: Comment on above: Patient Position: Sitting; Cuff Location : Left Arm; Cuff Size: Standard 05-16-2022 08:35-0400 Heart rate 104 /min Sofiya Logan [facility]; [facility] Work Phone: Comment on above: Pattern: Regular 05-16-2022 08:35-0400 Respiratory rate 18 /min Sofiya Logan [facility]; [facility] Work Phone: Comment on above: Pattern: Unlabored 05-16-2022 08:35-0400 SaO2% (BldA) [Mass fraction] 97 % Sofiya Logan [facility]; [facility] Work Phone: Comment on above: Room air 05-16-2022 08:35-0400 Systolic blood pressure 128 mm[Hg] Sofiya Logan [facility]; [facility] Work [...] - adn left arm 03-28-2022 10:50-0400 Body temperature 97.3 [degF] Lesli Darinel DO Work Phone: [facility]; [facility] Work Phone: Comment on above: Method: Infrared R arm 168/110 - adn left arm /03-28-2022 10:50-0400 Body weight 124.29 kg Lesli Darinel DO Work Phone: [facility]; [facility] Work Phone: Comment on above: R arm 168/110 - adn left arm 131/70 03-28-2022 10:50-0400 Diastolic blood pressure 110 mm[Hg] Lesli Darinel DO Work Phone: [facility]; [facility] Work Phone: Comment on above: Patient Position: Sitting; Cuff Location : Left Arm; Cuff Size: Standard R arm 168/110 - adn left arm /70 03-28-2022 10:50-0400 Heart rate 86 /min Lesli Darinel [...] R arm 168/110 - adn left arm /70 03-28-2022 10:50-0400 Systolic blood pressure 168 mm[Hg] Lesli Darinel DO Work Phone: [facility]; [facility] Work Phone: Comment on above: Patient Position: Sitting; Cuff Location : Left Arm; Cuff Size: Standard R arm 168/110 - adn left arm 131/70 03-11-2022 14:02-0400 Body height 169.55 cm Alycia Maldonado [employer] [facility]; [facility] Work Phone: 03-11-2022 14:02-0400 Body mass index (BMI) [Ratio] 43.71 kg/m2 Alycia Maldonado [employer] [facility]; [facility] Work Phone: 03-11-2022 14:02-0400 Body surface area Derived from formula 2.32 m2 Alycia Slarb [employer] [facility]; [facility] Work Phone: 03-11-2022 14:02-0400 Body temperature 97.1 [degF] Alycia Slarb [employer] [facility]; [facility] Work Phone: 03-11-2022 14:02-0400 Body weight 125.65 kg Alycia Slarb [employer] [facility]; [facility] Work Phone: 03-11-2022 14:02-0400 Diastolic blood pressure 88 mm[Hg] Alycia Slarb [employer] [facility]; [facility] Work Phone: Comment on above: Patient Position: Sitting; Cuff Location : Left Arm; Cuff Size: Standard 03-11-2022 14:02-0400 Heart rate 126 /min Alycia Slarb [employer] [facility]; [facility] Work Phone: Comment on above: Pattern: Regular 03-11-2022 14:02-0400 Respiratory rate 16 /min Alycia Slarb [employer] [facility]; [facility] Work Phone: Comment on above: Pattern: Unlabored 03-11-2022 14:02-0400 SaO2% (BldA) [Mass fraction] 98 % Alycia Slarb [employer] [facility]; [facility] Work Phone: Comment on above: Room air 03-11-2022 14:02-0400 Systolic blood pressure 142 mm[Hg] Alycia Slarb [employer] [facility]; [facility] Work Phone: Comment on above: Patient Position: Sitting; Cuff Location : Left Arm; Cuff Size: Standard 03-02-2022 09:24-0400 Diastolic blood pressure 96 mm[Hg] [facility] Work Phone: 03-02-2022 09:24-0400 Heart rate 83 /min [facility] Work Phone: 03-02-2022 09:24-0400 Respiratory rate 18 /min [facility] Work Phone: 03-02-2022 09:24-0400 SaO2% (BldA) [Mass fraction] 98 % [facility] Work Phone: 03-02-2022 09:24-0400 Systolic blood pressure 154 mm[Hg] [facility] Work Phone: 03-02-2022 07:-040 Body height 167.64 cm [facility] Work Phone: 03-02-2022 07:26-0400 Body mass index (BMI) [Ratio] 44.4 kg/m2 [facility] Work Phone: 03-02-2022 07:-040 Body temperature 97.9 [degF] [facility] Work Phone: 03-02-2022 07:26-0400 Body weight 124.7 kg [facility] Work Phone: 08-08-2010 12:15-0400 Body height 169.55 [...] 08-08-2010 12:15-0400 Heart rate 68 /min Octavia Alejo RN [facility]; [...] Medicine; [facility] Work Phone: 07-20-2009 [id number] Body weight 112.52 kg Octavia Alejo RN [facility]; [facility] Work Phone: 07-20-2009 09:07-0400 Diastolic blood pressure 78 mm[Hg] Octavia Alejo RN [facility]; [facility] Work Phone: Comment on above: Patient Position: Sitting; Cuff Location : Left Arm; Cuff Size: Large 07-20-2009 [id number] Head Occipital-frontal circumference 0 cm Octavia Alejo [...] 12-28-2008 09:41-0400 Diastolic blood pressure 80 mm[Hg] Octaiva Alejo RN [facility]; [facility] [...] Left Arm; Cuff Size: Large 07-27-2008 10:17-0400 Body height 169.55 cm Octavia Alejo RN [...] Date Encounter Type Care Provider Facility Start: 07-28-2025 ambulatory Gardenia Dawson Facility:[facility] Start: 04-12-2025 End: 04-12-[address] Lesli Márquez DO Work Phone: -Radiology [facility] Start: 04-12-2025 End: 04-12-[address] Lesli Márquez DO -Radiology [facility] Work Phone: Start: 04-12-2025 End: 04-12-2025 ambulatory Lesli Márquez Facility:[facility] Start: 03-19-2025 End: 03-19-[address] Lesli Márquez DO Work Phone: [facility] Work Phone: Start: 03-19-2025 End: 03-19-[address] Lesli Márquez DO -Laboratory Work Phone: Start: 03-19-2025 End: 03-19-2025 ambulatory Lesli Márquez Facility:[facility] Start: 02-11-2025 End: 02-11-2025 Patient encounter procedure Gardenia Dawson CT -[facility] Work Phone: Start: 02-11-2025 End: 02-11-2025 ambulatory Lesli Márquez Facility:[facility] Start: 02-10-2025 End: 02-10-[address] Lesli Márquez DO Work Phone: [facility] Work Phone: Start: 02-10-2025 End: 02-10-[address] Lesli Márquez DO -Cat Scan, [facility] Work Phone: Start: 02-10-2025 End: 02-10-2025 ambulatory Lesli Márquez Facility:[facility] Start: 12-25-2024 End: 12-25-2024 Subsequent hospital visit by physician [facility] Comment on above: Other abnormal gluco se Start: 12-25-2024 End: 12-25-2024 ambulatory LESLI Gutierrez [facility] Start: 11-06-2024 End: 11-06-[address] Lesli Márquez DO -Laboratory Work Phone: Start: 11-06-2024 End: 11-06-2024 ambulatory Lesli Márquez Facility:[facility] Start: 10-10-2023 End: 10-10-2023 ambulatory [facility] Work Phone: Start: 10-10-2023 End: 10-10-2023 Patient encounter procedure [facility]-Outpatient Pavilion Ultrasound Work Phone: Start: 10-08-2023 End: 10-08-2023 ambulatory [facility] Work Phone: Start: 10-08-2023 End: 10-08-2023 Patient encounter procedure [facility]-Outpatient Breast Imaging Work Phone: Start: 09-23-2023 End: 09-23-2023 Emergency department patient visit [facility] Start: 04-08-2023 End: 04-08-2023 ambulatory [facility] Work Phone: Start: 04-08-2023 End: 04-08-2023 Patient encounter procedure [facility]-Outpatient Bone Densitometry Start: 03-13-2023 End: 03-13-2023 Office outpatient visit 25 minutes Lesli Márquez DO Work Phone: [facility] Start: 11-14-2022 End: 11-14-2022 Office outpatient visit 10 minutes Lesli Darinel [...] 08-14-2022 End: 08-14-2022 Emergency department patient visit [facility]-Emergency Department Start: 07-10-2022 End: 07-10-2022 Office outpatient visit 15 minutes Lesli Darinel DO Work Phone: [facility] Start: 05-16-2022 End: 05-16-2022 Office outpatient visit 10 minutes Lesli Darinel DO Work Phone: [facility] Start: 05-08-2022 End: 05-08-2022 Patient encounter procedure [facility]-Cardiovascular Services Start: 05-08-2022 End: 05-11-2022 Office outpatient visit 5 minutes Lesli Darinel DO Work Phone: [facility] Start: 03-29-2022 End: 03-29-2022 Office outpatient visit 5 minutes Lesli Dairnel DO Work Phone: [facility] Start: 03-28-2022 End: 03-28-2022 Office outpatient visit 25 minutes Lesli Darinel DO Work Phone: [facility] Start: 03-22-2022 End: 03-22-2022 Patient encounter procedure [facility] Start: 03-11-2022 End: 03-11-2022 Office outpatient visit 25 minutes Lesli Darinel DO Work Phone: [facility] Start: 03-11-2022 Review Lesli Suo n DO Work Phone: [facility] Start: 03-08-2022 End: 03-08-2022 Phone Encounter Lesli Darinel DO Work Phone: [facility] Start: 03-06-2022 End: 03-06-2022 Patient encounter procedure [facility]-Laboratory Start: 03-05-2022 End: 03-05-2022 Annotation/Addendum Lesli Darinel DO Work Phone: [facility] Start: 03-02-2022 End: 03-02-2022 Emergency department patient visit [facility]-Emergency Department Start: 08-09-2010 End: 08-09-2010 [...] 07-27-2008 End: 07-27-2008 Patient encounter procedure Lesli Márquez DO Work Phone: [facility] Procedures Date Procedure Procedure Detail Performing Clinician Start: 04-12-2025 Complete x-ray mary hermes survey Dr. Lesli Márquez DO Work Phone: Start: 03-19-[address] Nick Márquez [...] Density Study Procedure Note: See Note; NOTES: [facility] Imaging Services [address] [place] [address] Dexa Bone Density Study MR#: [id number] Acct: [id number] Name: ALIX PALMER Rep #: [id number] : 1975 F 47 From: Hudson olmos MD PCP: Dr. Lesli Márquez, DO Status: DEP CLI Study: Dexa Bone Density Study Date of Exam: 04/08/23 Exam# [id number] Ordering Dr: Lesli Márquez DO STUDY: DUAL [...] Signed: Hudson Calderon MD at 12:57 EDT Reading Location ID and State: [facility] / [place] , Service support , CC: Dr. 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 Lesli Márquez, Status:DEP ER Location: ED HPI History of [...] dry winter air. She has taken no yatz-skt-grdxmik medications recently except for a half dose of Tylenol PM last night to help her get to sleep. No decongestants. [facility] Medical History COVID High blood pressure Nasal [...] % (Auto) 61.8 Lymph % (Auto) 28.1 [place] % (Auto) 8.1 Eos % (Auto) 1.3 [...] Sl. Cloudy Urine pH 6.0 Ur Specific Felton 1.010 Urine Protein Negative Urine Glucose (UA) [...] if able) Activity Restrictions/Additional Instructions: Get any pvql-cwl-ypcgxck nasal decongestant spray containing oxymetazoline or phenylephrine. [...] your Primary Care Provider. Call [facility] ([phone]) or report to the closest Emergency Room. Call 911 if necessary. 08/15/22 0028 <Electronically signed by Lionel Garcia MD> Cosigner Signature (if applicable): CC: Dr. Lesli Márquez DO Signed Lesli Márquez DO Work Phone: Start: 08-14-2022 End: 08-16-2022 12 Lead EKG Procedure Note: See Note; NOTES: [facility] Cardiovascular Services [address] [place] [address] 12 Lead EKG 08/14/22 1351 MR#: [id number] Acct: [id number] Name: ALIX PALMER Rep #: [id number] : 1975 46 From: Gal Espinal MD [...] Abnormal ECG Confirmed by EFRA DURBIN, GATITO ([id number]), order editor FREDA JOSEPH ([id number]) on 08/16/2022 2:07:28 PM Referred By: RU/TARI Confirmed By:NOE ESPINAL MD 08/16/22 1407 Date Gal Espinal MD CC: Dr. Lionel Garcia MD; Dr. Lesli Márquez DO; ED PHYSICIAN PROVIDER Signed Lesli Márquez DO Work Phone: Start: 08-14-2022 End: 08-14-2022 Chest 1 View (Portable) Procedure Note: See Note; NOTES: [facility] Imaging Services [address] [place] [address] Chest 1 View (Portable) MR#: [id number] Acct: [id number] Name: ALIX PALMER Rep #: [id number] : 1975 F 46 From: Hudson olmos MD PCP: Dr. Lesli Márquez DO Status: REG ER Study: Chest 1 View (Portable) Date of Exam: 08/14/22 Exam# [id number] Ordering Dr: Provider,Ed P. STUDY: X-RAY CHEST REASON FOR EXAM: Female, 46 years old. General illness TECHNIQUE: Single AP portable view of the chest. COMPARISON: None. FINDINGS: EKG electrodes are seen. The lungs are clear and expanded. There is no demonstrated pleural abnormality. Normal size heart. Normal mediastinum and ismael. Normal visualized pulmonary arteries. Normal visualized aortic arch and descending thoracic aorta. Normal visualized thoracic spine. Normal visualized ribs, clavicles, and shoulders. There is no demonstrated abnormality of the visualized soft tissue structures of the upper abdomen. RAD/Chest 1 View (Portable) IMPRESSION: Normal x-ray examination of the chest. Electronically Signed: Hudson Calderon MD at 14:12 EDT Reading Location ID and State: [address] [place] [address] , Service support , CC: Dr. 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 Lesli Márquez DO Status: REG CLI Study: MRI Abd WITH and W/O Contrast Date of Exam: Exam# [id number] Ordering Dr: Lesli Márquez DO STUDY: MRI [...] MD at 23:58 EDT , CC: Dr. Lelsi Márquez DO Cocoa Butter Filter Operator: Signed Lesli Márquez DO Work Phone: Start: 03-22-2022 MRI of abdomen with contrast Start: 03-02-2022 End: 03-04-2022 Emergency Department Summary Comments: See Note; NOTES: [facility] Medical Records Department [address] [facility] [place] [address] Emergency Department Summary 03/02/22 MR#: [id number] Acct: [id number] Name: AILX PALMER Rep #: [id number] : 1975 46 From: Pollo Pinto MD [...] % (Auto) 58.5 Lymph % (Auto) 30.3 [place] % (Auto) 7.6 Eos % (Auto) 2.5 [...] Color Urine Clarity Urine pH Ur Specific Felton Urine Protein Urine Glucose (UA) Urine Ketones Urine Occult Blood Urine Nitrite Urine Bilirubin Urine Urobilinogen Ur Leukocyte Esterase Urine RBC Urine WBC Ur Squamous Epith Cells Urine Bacteria Urine Mucus 03/02/22 09:26 WBC RBC Hgb Hct MCV MCH MCHC RDW Std Deviation RDW Coeff of Diane Plt Count MPV Immature Gran % (Auto) Neut % (Auto) Lymph % (Auto) [place] % (Auto) Eos % (Auto) Baso % [...] Clarity Clear Urine pH 6.5 Ur Specific Felton 1.005 Urine Protein Negative Urine Glucose (UA) [...] of the liver. ACR White Paper guidelines (mahamed Santos al. JACR 2017; 14(11):5893-5289.) suggest the following. For patients with low [...] 9:13 EDT Reading Location ID and State: [facility] / [place] , Service support , Discharge Plan Triage [...] problems, contact your Primary Care Provider. Call [facility] ([phone]) or report to the closest Emergency Room. Call 911 if necessary. 03/02/22 0957 <Electronically signed by Pollo Pinto MD> Cosigner Signature (if applicable): CC: Dr. Lesli Márquez DO Signed Lesli Márquez DO Work Phone: Start: 03-02-2022 End: 03-04-2022 Abdomen/Pelvis W IV Cont ONLY Comments: See Note; NOTES: [facility] Imaging Services [address] [place] [address] Abdomen/Pelvis W IV Cont ONLY MR#: [id number] Acct: [id number] Name: ALIX PALMER Rep #: [id number] : 1975 F 46 From: Jose Carlos Barrera PCP: Dr. Lesli Márquez, DO Status: PRE ER Study: Abdomen/Pelvis W IV Cont ONLY Date of Exam: Exam# [id number] Ordering Dr: Pollo Pinto MD STUDY: CT [...] of the liver. ACR White Paper guidelines (Tom et al. JACR 2017; 14(11):7258-2834.) suggest the following. For patients with low [...] Pollo Pinto MD; Dr. Lesli Márquez DO Cocoa Butter Filter Operator: Signed Lesli Márquez DO Work Phone: Start: 03-02-2022 Computed tomography of abdomen and pelvis with intravenous contrast Operation on vertebra Alycia Slarb RESIDENTIAL REAL ESTATE SALES MANAGER Comment on above: 2010 Dr. Eduardo Operation on vertebra Sofiya Gravius [facility] Comment on above: 2010 Dr. Eduardo Operation on vertebra Sofiya Gravius [facility] Comment on above: 2010 Dr. Eduardo Operation on vertebra Kayela Syracuse [facility] Comment on above: 2010 Dr. Eduardo Operation on vertebra Saleem Michael RESIDENTIAL REAL ESTATE SALES MANAGER Comment on above: 2010 Dr. Eduardo Operation on vertebra Kayela Nguyen [facility] Comment on above: 2010 Dr. Eduardo Operation on vertebra Kayela Nguyen [facility] Comment on above: 2010 Dr. Eduardo Operation on vertebra Kayela Nguyen [facility] Comment on above: 2010 Dr. Eduardo Operation on vertebra Kayela Syracuse [facility] Comment on above: 2010 Dr. Eduardo Tonsillectomy Tonsillectomy Octavia moise RN Tonsillectomy Tonsillectomy Sofiya Graviu s [place] Tonsillectomy Tonsillectomy Sofiya Graviu s [place] Tonsillectomy Tonsillectomy Sofiya Graviu s [place] Tonsillectomy Tonsillectomy Kayela Radfor d [place] Tonsillectomy Tonsillectomy Saleem Rodriguez RESIDENTIAL REAL ESTATE SALES MANAGER Tonsillectomy Tonsillectomy Kayela Radfor d [place] Tonsillectomy Tonsillectomy Kayela Radfor d [place] Tonsillectomy Tonsillectomy Kayela Radfor d [place] Tonsillectomy Tonsillectomy Kayela Radfor d [place] Plan of Treatment Date Care Activity Detail Author Start: 2027 Zoster Vaccines (1 of 2) Zoste r Vaccines (1 of 2) [facility] Start: 04-08-2025 Screening for osteoporosis Bone Density Scan [facility] Start: 06-20-2024 COVID-19 Vaccine ( season) COVID-19 Vaccine ( season) [facility] Start: 06-20-2024 Influenza vaccination Influenza Vacc ine (#1) [facility] Start: 04-08-2023 Dual energy X-ray absorptiometry Dexa Bone Density Study [facility] Start: 03-13-2023 Procedure Education Eprescribe [...] Phone: Start: 07-10-2022 Lipid panel LIPID PANEL (79126) [facility]; [facility] [...] auto&auto difrntl wbc CBC W/AUTO DIFF WBC (44869) [facility]; [facility] Work Phone: Start: 03-11-2022 Procedure Education Eprescribe d prescriptions (G8553) [facility]; [facility] Work Phone: Start: 03-11-2022 Provider Instruction s for Treatment [facility]; [facility] Work Phone: Start: 03-05-2022 25 hydroxy includes fractions if performed CALCIFEDIOL (24502) [facility]; [facility] Work Phone: Start: 03-05-2022 Urine albumin quantitative MICROALBUMIN: CREATININE RATIO (75021) AND (22213) [facility]; [facility] Work Phone: Start: 03-05-2022 Assay of thyroid stimulating hormone tsh TSH (THYROID STIMULATING HORMONE) (31103) [facility]; [facility] Work Phone: Start: 03-05-2022 Blood count complete automated CBC & PLATELETS (AUTO) (14084) [facility]; [facility] Work Phone: Start: 03-05-2022 Comprehensive metabo lic panel METABOLIC PANEL, COMPREHENSIVE (66402) [facility]; [facility] Work Phone: Start: 03-05-2022 Lipid panel LIPID PANEL (16403) [facility]; [facility] Work Phone: Start: 2017 Screening for malign ant neoplasm of breast Mammogram [facility] Start: 05-24-2010 Provider Instruction s for Treatment [facility]; [facility] Work Phone: Start: 05-24-2010 25 hydroxy includes fractions if performed Vitamin D Hydroxy (61004) [facility]; [facility] Work Phone: Start: 05-24-2010 1 25 dihydroxy inclu haily fractions if performed VITAMIN D, 1, 25-DIHYDROXY (53630) [facility]; [facility] Work Phone: Start: 05-24-2010 Assay of thyroid stimulating hormone tsh TSH (09852) [facility]; [facility] Work Phone: Start: 05-24-2010 Protein electrophore tic fractj&quantj serum [facility]; [facility] Work Phone: Start: 05-24-2010 Sedimentation rate r bc non-automated SED RATE ERYTHROCYTE (42948) [facility]; [facility] Work Phone: Start: 05-24-2010 Assay of phosphorus inorganic PHOSPHORUS (92804) [facility]; [facility] Work Phone: Start: 05-24-2010 Assay of parathormone PARATHORMONE ( 98448) [facility]; [facility] Work Phone: Start: 05-24-2010 Hepatic function panel HEPATIC FUNCTION PANEL (70199) [facility]; [facility] Work Phone: Start: 05-24-2010 Blood count complete automated CBC (AUTO) (04039) [facility]; [facility] Work Phone: Start: 05-24-2010 Calcium total CALCIUM SERUM (05370) [facility]; [facility] Work Phone: Start: 05-24-2010 C-reactive protein C-REACTIVE PROTEIN (40540) [facility]; [facility] Work Phone: Start: 05-24-2010 Assay of phosphatase alkaline ALKALINE PHOSPHATASE (60862) [facility]; [facility] Work [...] Phone: Start: 11-30-2008 Lipid panel LIPID PANEL (53385) [facility]; [facility] Work Phone: Comment on above: do in 6 mo Start: 07-27-2008 Provider Instruction s for Treatment [facility]; [facility] Work Phone: Start: 07-27-2008 Glucose quantitative blood xcpt reagent strip Glucose, PP/2 Hour (57994) [facility]; [facility] Work Phone: Start: 1999 DTaP/Tdap/Td Vaccine s (1 - Tdap) DTaP/Tdap/Td Vaccines (1 - Tdap) [facility] Start: 1998 Screening for malign ant neoplasm of cervix [facility] Start: 1996 Hepatitis A Vaccines (1 of 2 - Risk 2-dose series) Hepatitis A Vaccines (1 of 2 - Risk 2-dose series) [facility] Start: 1996 Hepatitis B Vaccines (1 of 3 - 19+ 3-dose series) Hepatitis B Vaccines (1 of 3 - 19+ 3-dose series) [facility] Start: 1995 Diabetes mellitus screening Diabetes Screening [facility] Start: 1995 Hepatitis C screening Hepatitis C [facility] Start: 1978 MMR Vaccines (1 of 1 - Standard series) MMR Vaccines (1 of 1 - Standard series) [facility] Start: 1977 HIV screening HIV Screening [facility] Start: 1977 Lipid panel Lipid Panel [facility] Start: 1977 Screening for malign ant neoplasm of colon [facility] Start: 1977 Yearly Adult Physical Yearly Adult P hysical [facility] End: 12-25-2024 CT for calcium scoring WO contrast and CTA W contrast IV Heart and coronary arteries [facility] Service Area Work Phone: Comment on above: Once for 1 Occurrenc es starting 12/25/2024 until 12/25/2024 CTA Chest vessels WO and W contrast IV [facility] Patient Education [facility] Work Phone: Patient referral [facility] Work Phone: [facility] [...] Immunizations Immunization Date Immunization Notes Care Provider [facility] 08-13-2022 influenza, seasonal, injectable Lesli Márquez DO Work Phone: [facility] Work Phone: 08-13-2022 influenza virus vaccine, unspecified formulation [facility] 1 [facility] Work Phone: Payers Date Payer Category Payer Self-pay [id number] 2023 Worker's Compensation [id number] 2023 [facility] Care (Private) [facility] Member Subscriber Plan / Payer (Effective 2023-Present) Name: Alix Palmer Relation to Subscriber: Self Name: Alix Palmer Payer ID: Not on file Type: Not on file Address: [place] [id number] 2021 Unknown [id number] 2010 Unknown [id number] 2008 Unknown [id number] 1975 Unknown [id number] 1975 Unknown [id number] 1975 Unknown [id number] Unknown [facility] *DO NOT USE* [id number] [facility] [employer] [id number] Unknown [id number] Unknown [id number] Unknown [id number] 462 Unknown [id number] 462 Unknown [id number] 462 Unknown [id number] 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 Start: 12-25-2024 Gender identity Identifies as female gender (finding) [facility] Work Phone: Start: 12-25-2024 Sexual orientation Heterosexual (fin ding) [facility] Work Phone: Start: 12-15-2024 End: 12-25-2024 Exposure to SARS-CoV-2 (event) Not sure [facility] Work Phone: Start: 04-15-2024 Tobacco smoking stat us NHIS Never smoked tobacco (finding) [facility] Start: 02-15-2025 Sex Female (finding) [facility] Mental Status Date Assessment Result Facility 08-14-2022 Cognitive function Level Of Cons ciousness Awake;Alert;Appropriate;Follow s Commands [facility] Work Phone: Clinical Notes 02-10-2025 to 04-13-2025 Note Date & Type Note Facility 04-13-2025 Radiology Diagnostic study note [facility] Imaging Services [address] [place], [place] [address] Bone Survey Comp(Axial&Append) MR#: [id number] Acct: [id number] Name: ALIX PALMER Rep #: [id number] : 1975 F 49 From: Eliot Santos MD PCP: Dr. Lesli Márquez DO Status: RE G CLI Study:Bone Survey Comp(Axial&Append) Date of Exam: 04/12/25 Exam# [id number] Ordering Dr: Matt Márquez DO PROCEDURE: BONE SURVEY COMP(AXIAL APPEND) 04/12/2025 REASON FOR EXAM: MONOCLONAL GAMMOPATHIES F, age 49 y/o . TECHNIQUE: Skeletal survey. COMPARISON: None. FINDINGS: No lytic or blastic aggressive bone lesion is identified. No fracture or dislocation is seen. No periosteal reaction is noted. Mild diffuse spondylosis. RAD/Bone Survey Comp(Axial&Append) IMPRESSION: No suspicious bone lesion is identified. [facility] CC: Dr. Lesli Márquez DO ~ Cocoa Butter Filter Operator: Signed [facility] 02-11-2025 Evaluation note Diagnosis Onset Date Resolution Thoracic aortic aneurysm acute February 11, 2025 8:24am [facility] Work Phone: 1(187) 561-590604-24-2025 Radiology Diagnostic study note [facility] Imaging Services [address] [place], [place] [id number] Abdomen W/WO IV Contrast MR#: [id number] Acct: [id number] Name: ALIX PALMER Rep #: [id number] : 1975 F 49 From: Devin Crockett DO PCP: Dr. Lesli Márquez, Status: RE G CLI Study:Abdomen W/WO IV Contrast Date of Exam: 02/10/25 Exam# [id number] Ordering Dr: Matt Márquez DO PROCEDURE: ABDOMEN [...] Location: [facility] CC: Dr. Lesli Márquez, DO ~ Cocoa Butter Filter Operator: Signed [facility] note[facility] assessment information available [facility] Work Phone: Evaluation note* Diagnosis Other abnormal glucose documented in this encounter [facility] Work Phone: Hospital Discharge instructions Additional Instructions [...] on your liver. Zofran as needed for nausea.[facility] Work Phone[facility] Work Phone: Hospital Discharge instructions Additional Instructions Get any aeqn-jhv-hrtfpgl nasal decongestant spray containing oxymetazoline or phenylephrine. [...] couple times a week if you are able.[facility] Work Phone: Instructions* Name Dates Details Patient Instructions Indication:Non-smoker Start:11-Mar-2022 Instruction Type:Provider Instructions for Treatment How to Access Health Informa tion Online using Patient Portal and [employer] App Apps Indication:Non-smoker Start:11-Mar-2022 Instruction Type:Patient Education [facility]; [facility] Work Phone: [employer]* Name Dates Details Patient Instructions Indication:Non-smoker Start:11-Mar-2022 Instruction Type:Provider Instructions for Treatment How to Access Health Informa tion Online using Patient Portal and [employer] Apps Indication:Non-smoker Start:11-Mar-2022 Instruction Type:Patient Education [facility]; [facility] Work Phone: [employer]* Name Dates Details Patient Instructions Indication:Non-smoker Start:28-Mar-2022 Instruction Type:Provider Instructions for Treatment How to Access Health Informa tion Online using Patient Portal and [employer] Apps Indication:Non-smoker Start:28-Mar-2022 Instruction Type:Patient Education Patient Instructions Indication:Non-smoker Start:11-Mar-2022 Instruction Type:Provider Instructions for Treatment How to Access Health Informa tion Online using Patient Portal and [employer] Apps Indication:Non-smoker Start:11-Mar-2022 Instruction Type:Patient Education [facility]; [facility] Work Phone: instructions* Name Dates Details Patient Instructions Indication:Non-smoker Start:28-Mar-2022 Instruction Type:Provider Instructions for Treatment How to Access Health Informa tion Online using Patient Portal and [employer] Apps Indication:Non-smoker Start:28-Mar-2022 Instruction Type:Patient Education Patient Instructions Indication:Non-smoker Start:11-Mar-2022 Instruction Type:Provider Instructions for Treatment How to Access Health Informa tion Online using Patient Portal and [employer] Apps Indication:Non-smoker Start:11-Mar-2022 Instruction Type:Patient Education [facility]; [facility] Work Phone: instructions* Name Dates Details Patient Instructions Indication:Morbid obesity Start:16-May-2022 Instruction Type:Provider Instructions for Treatment How to Access Health Informa tion Online using Patient Portal and [employer] Apps Indication:Morbid obesity Start:16-May-2022 Instruction Type:Patient Education Patient Instructions Indication:Non-smoker Start:28-Mar-2022 Instruction Type:Provider Instructions for Treatment How to Access Health Informa tion Online using Patient Portal and [employer] Apps Indication:Non-smoker Start:28-Mar-2022 Instruction Type:Patient Education Patient Instructions Indication:Non-smoker Start:11-Mar-2022 Instruction Type:Provider Instructions for Treatment How to Access Health Informa tion Online using Patient Portal and [employer] Apps Indication:Non-smoker Start:11-Mar-2022 Instruction Type:Patient Education [facility]; [facility] Work Phone: instructions* Name Dates Details Patient Instructions Indication:BMI 40.0-44.9, adult Start:10-Jul-2022 Instruction Type:Provider Instructions for Treatment How to Access Health Informa tion Online using Patient Portal and [employer] Apps Indication:BMI 40.0-44.9, adult Start:10-Jul-2022 Instruction Type:Patient Education Patient Instructions Indication:Morbid obesity Start:16-May-2022 Instruction Type:Provider Instructions for Treatment How to Access Health Informa tion Online using Patient Portal and [employer] Apps Indication:Morbid obesity Start:16-May-2022 Instruction Type:Patient Education Patient Instructions Indication:Non-smoker Start:28-Mar-2022 Instruction Type:Provider Instructions for Treatment How to Access Health Informa tion Online using Patient Portal and [employer] Apps Indication:Non-smoker Start:28-Mar-2022 Instruction Type:Patient Education Patient Instructions Indication:Non-smoker Start:11-Mar-2022 Instruction Type:Provider Instructions for Treatment How to Access Health Informa tion Online using Patient Portal and [employer] Apps Indication:Non-smoker Start:11-Mar-2022 Instruction Type:Patient Education [facility]; [facility] Work Phone: instructions* Name Dates Details Patient Instructions Indication:BMI 40.0-44.9, adult Start:10-Jul-2022 Instruction Type:Provider Instructions for Treatment How to Access Health Informa tion Online using Patient Portal and [employer] Apps Indication:BMI 40.0-44.9, adult Start:10-Jul-2022 Instruction Type:Patient Education Patient Instructions Indication:Morbid obesity Start:16-May-2022 Instruction Type:Provider Instructions for Treatment How to Access Health Informa tion Online using Patient Portal and [employer] Apps Indication:Morbid obesity Start:16-May-2022 Instruction Type:Patient Education Patient Instructions Indication:Non-smoker Start:28-Mar-2022 Instruction Type:Provider Instructions for Treatment How to Access Health Informa tion Online using Patient Portal and [employer] Apps Indication:Non-smoker Start:28-Mar-2022 Instruction Type:Patient Education Patient Instructions Indication:Non-smoker Start:11-Mar-2022 Instruction Type:Provider Instructions for Treatment How to Access Health Informa tion Online using Patient Portal and [employer] Apps Indication:Non-smoker Start:11-Mar-2022 Instruction Type:Patient Education [facility]; [facility] Work Phone: instructions* Name Dates Details Patient Instructions Indication:Non-smoker Start:16-Aug-2022 Instruction Type:Provider Instructions for Treatment How to Access Health Informa tion Online using Patient Portal and [employer] Apps Indication:Non-smoker Start:16-Aug-2022 Instruction Type:Patient Education Patient Instructions Indication:BMI 40.0-44.9, adult Start:10-Jul-2022 Instruction Type:Provider Instructions for Treatment How to Access Health Informa tion Online using Patient Portal and [employer] Apps Indication:BMI 40.0-44.9, adult Start:10-Jul-2022 Instruction Type:Patient Education Patient Instructions Indication:Morbid obesity Start:16-May-2022 Instruction Type:Provider Instructions for Treatment How to Access Health Informa tion Online using Patient Portal and [employer] Apps Indication:Morbid obesity Start:16-May-2022 Instruction Type:Patient Education Patient Instructions Indication:Non-smoker Start:28-Mar-2022 Instruction Type:Provider Instructions for Treatment How to Access Health Informa tion Online using Patient Portal and [employer] Apps Indication:Non-smoker Start:28-Mar-2022 Instruction Type:Patient Education Patient Instructions Indication:Non-smoker Start:11-Mar-2022 Instruction Type:Provider Instructions for Treatment How to Access Health Informa tion Online using Patient Portal and [employer] Apps Indication:Non-smoker Start:11-Mar-2022 Instruction Type:Patient Education [facility]; [facility] Work Phone: Instructions* Name Dates Details Patient Instructions Indication:BMI 40.0-44.9, adult Start:11-Sep-2022 Instruction Type:Provider Instructions for Treatment How to Access Health Informa tion Online using Patient Portal and [employer] Apps Indication:BMI 40.0-44.9, adult Start:11-Sep-2022 Instruction Type:Patient Education Patient Instructions Indication:Non-smoker Start:16-Aug-2022 Instruction Type:Provider Instructions for Treatment How to Access Health Informa tion Online using Patient Portal and [employer] Apps Indication:Non-smoker Start:16-Aug-2022 Instruction Type:Patient Education Patient Instructions Indication:BMI 40.0-44.9, adult Start:10-Jul-2022 Instruction Type:Provider Instructions for Treatment How to Access Health Informa tion Online using Patient Portal and [employer] Apps Indication:BMI 40.0-44.9, adult Start:10-Jul-2022 Instruction Type:Patient Education Patient Instructions Indication:Morbid obesity Start:16-May-2022 Instruction Type:Provider Instructions for Treatment How to Access Health Informa tion Online using Patient Portal and [employer] Apps Indication:Morbid obesity Start:16-May-2022 Instruction Type:Patient Education Patient Instructions Indication:Non-smoker Start:28-Mar-2022 Instruction Type:Provider Instructions for Treatment How to Access Health Informa tion Online using Patient Portal and [employer] Apps Indication:Non-smoker Start:28-Mar-2022 Instruction Type:Patient Education Patient Instructions Indication:Non-smoker Start:11-Mar-2022 Instruction Type:Provider Instructions for Treatment How to Access Health Informa tion Online using Patient Portal and [employer] Apps Indication:Non-smoker Start:11-Mar-2022 Instruction Type:Patient Education [facility]; [facility] Work Phone: Instructions* Name Dates Details Patient Instructions Indication:BMI 40.0-44.9, adult Start:11-Sep-2022 Instruction Type:Provider Instructions for Treatment How to Access Health Informa tion Online using Patient Portal and [employer] Apps Indication:BMI 40.0-44.9, adult Start:11-Sep-2022 Instruction Type:Patient Education Patient Instructions Indication:Non-smoker Start:16-Aug-2022 Instruction Type:Provider Instructions for Treatment How to Access Health Informa tion Online using Patient Portal and [employer] Apps Indication:Non-smoker Start:16-Aug-2022 Instruction Type:Patient Education Patient Instructions Indication:BMI 40.0-44.9, adult Start:10-Jul-2022 Instruction Type:Provider Instructions for Treatment How to Access Health Informa tion Online using Patient Portal and [employer] Apps Indication:BMI 40.0-44.9, adult Start:10-Jul-2022 Instruction Type:Patient Education Patient Instructions Indication:Morbid obesity Start:16-May-2022 Instruction Type:Provider Instructions for Treatment How to Access Health Informa tion Online using Patient Portal and [employer] Apps Indication:Morbid obesity Start:16-May-2022 Instruction Type:Patient Education Patient Instructions Indication:Non-smoker Start:28-Mar-2022 Instruction Type:Provider Instructions for Treatment How to Access Health Informa tion Online using Patient Portal and [employer] Apps Indication:Non-smoker Start:28-Mar-2022 Instruction Type:Patient Education Patient Instructions Indication:Non-smoker Start:11-Mar-2022 Instruction Type:Provider Instructions for Treatment How to Access Health Informa tion Online using Patient Portal and [employer] Apps Indication:Non-smoker Start:11-Mar-2022 Instruction Type:Patient Education [facility]; [facility] Work Phone: Instructions* Name Dates Details Patient Instructions Indication:Non-smoker Start:09-Oct-2022 Instruction Type:Provider Instructions for Treatment How to Access Health Informa tion Online using Patient Portal and [employer] Apps Indication:Non-smoker Start:09-Oct-2022 Instruction Type:Patient Education Patient Instructions Indication:BMI 40.0-44.9, adult Start:11-Sep-2022 Instruction Type:Provider Instructions for Treatment How to Access Health Informa tion Online using Patient Portal and [employer] Apps Indication:BMI 40.0-44.9, adult Start:11-Sep-2022 Instruction Type:Patient Education Patient Instructions Indication:Non-smoker Start:16-Aug-2022 Instruction Type:Provider Instructions for Treatment How to Access Health Informa tion Online using Patient Portal and [employer] Apps Indication:Non-smoker Start:16-Aug-2022 Instruction Type:Patient Education Patient Instructions Indication:BMI 40.0-44.9, adult Start:10-Jul-2022 Instruction Type:Provider Instructions for Treatment How to Access Health Informa tion Online using Patient Portal and [employer] Apps Indication:BMI 40.0-44.9, adult Start:10-Jul-2022 Instruction Type:Patient Education Patient Instructions Indication:Morbid obesity Start:16-May-2022 Instruction Type:Provider Instructions for Treatment How to Access Health Informa tion Online using Patient Portal and [employer] Apps Indication:Morbid obesity Start:16-May-2022 Instruction Type:Patient Education Patient Instructions Indication:Non-smoker Start:28-Mar-2022 Instruction Type:Provider Instructions for Treatment How to Access Health Informa tion Online using Patient Portal and [employer] Apps Indication:Non-smoker Start:28-Mar-2022 Instruction Type:Patient Education Patient Instructions Indication:Non-smoker Start:11-Mar-2022 Instruction Type:Provider Instructions for Treatment How to Access Health Informa tion Online using Patient Portal and [employer] Apps Indication:Non-smoker Start:11-Mar-2022 Instruction Type:Patient Education [facility]; [facility] Work Phone: Instructions* Name Dates Details Patient Instructions Indication:BMI 40.0-44.9, adult Start:14-Nov-2022 Instruction Type:Provider Instructions for Treatment How to Access Health Informa tion Online using Patient Portal and [employer] Apps Indication:BMI 40.0-44.9, adult Start:14-Nov-2022 Instruction Type:Patient Education Patient Instructions Indication:Non-smoker Start:09-Oct-2022 Instruction Type:Provider Instructions for Treatment How to Access Health Informa tion Online using Patient Portal and [employer] Apps Indication:Non-smoker Start:09-Oct-2022 Instruction Type:Patient Education Patient Instructions Indication:BMI 40.0-44.9, adult Start:11-Sep-2022 Instruction Type:Provider Instructions for Treatment How to Access Health Informa tion Online using Patient Portal and [employer] Apps Indication:BMI 40.0-44.9, adult Start:11-Sep-2022 Instruction Type:Patient Education Patient Instructions Indication:Non-smoker Start:16-Aug-2022 Instruction Type:Provider Instructions for Treatment How to Access Health Informa tion Online using Patient Portal and [employer] Apps Indication:Non-smoker Start:16-Aug-2022 Instruction Type:Patient Education Patient Instructions Indication:BMI 40.0-44.9, adult Start:10-Jul-2022 Instruction Type:Provider Instructions for Treatment How to Access Health Informa tion Online using Patient Portal and [employer] Apps Indication:BMI 40.0-44.9, adult Start:10-Jul-2022 Instruction Type:Patient Education Patient Instructions Indication:Morbid obesity Start:16-May-2022 Instruction Type:Provider Instructions for Treatment How to Access Health Informa tion Online using Patient Portal and [employer] Apps Indication:Morbid obesity Start:16-May-2022 Instruction Type:Patient Education Patient Instructions Indication:Non-smoker Start:28-Mar-2022 Instruction Type:Provider Instructions for Treatment How to Access Health Informa tion Online using Patient Portal and [employer] Apps Indication:Non-smoker Start:28-Mar-2022 Instruction Type:Patient Education Patient Instructions Indication:Non-smoker Start:11-Mar-2022 Instruction Type:Provider Instructions for Treatment How to Access Health Informa tion Online using Patient Portal and [employer] Apps Indication:Non-smoker Start:11-Mar-2022 Instruction Type:Patient Education [facility]; [facility] Work Phone: Instructions* Name Dates Details Patient Instructions Indication:BMI 40.0-44.9, adult Start:13-Mar-2023 Instruction Type:Provider Instructions for Treatment How to Access Health Informa tion Online using Patient Portal and [employer] Apps Indication:BMI 40.0-44.9, adult Start:13-Mar-2023 Instruction Type:Patient Education Patient Instructions Indication:BMI 40.0-44.9, adult Start:14-Nov-2022 Instruction Type:Provider Instructions for Treatment How to Access Health Informa tion Online using Patient Portal and [employer] Apps Indication:BMI 40.0-44.9, adult Start:14-Nov-2022 Instruction Type:Patient Education Patient Instructions Indication:Non-smoker Start:09-Oct-2022 Instruction Type:Provider Instructions for Treatment How to Access Health Informa tion Online using Patient Portal and [employer] Apps Indication:Non-smoker Start:09-Oct-2022 Instruction Type:Patient Education Patient Instructions Indication:BMI 40.0-44.9, adult Start:11-Sep-2022 Instruction Type:Provider Instructions for Treatment How to Access Health Informa tion Online using Patient Portal and [employer] Apps Indication:BMI 40.0-44.9, adult Start:11-Sep-2022 Instruction Type:Patient Education Patient Instructions Indication:Non-smoker Start:16-Aug-2022 Instruction Type:Provider Instructions for Treatment How to Access Health Informa tion Online using Patient Portal and [employer] Apps Indication:Non-smoker Start:16-Aug-2022 Instruction Type:Patient Education Patient Instructions Indication:BMI 40.0-44.9, adult Start:10-Jul-2022 Instruction Type:Provider Instructions for Treatment How to Access Health Informa tion Online using Patient Portal and [employer] Apps Indication:BMI 40.0-44.9, adult Start:10-Jul-2022 Instruction Type:Patient Education Patient Instructions Indication:Morbid obesity Start:16-May-2022 Instruction Type:Provider Instructions for Treatment How to Access Health Informa tion Online using Patient Portal and [employer] Apps Indication:Morbid obesity Start:16-May-2022 Instruction Type:Patient Education Patient Instructions Indication:Non-smoker Start:28-Mar-2022 Instruction Type:Provider Instructions for Treatment How to Access Health Informa tion Online using Patient Portal and [employer] Apps Indication:Non-smoker Start:28-Mar-2022 Instruction Type:Patient Education Patient Instructions Indication:Non-smoker Start:11-Mar-2022 Instruction Type:Provider Instructions for Treatment How to Access Health Informa tion Online using Patient Portal and [employer] Apps Indication:Non-smoker Start:11-Mar-2022 Instruction Type:Patient Education [facility]; [facility] Work Phone: reason for referral (narrative)No reason for referral information [facility] Work Phone: Reason for visit Narrative* Imaging (Routine) - Pending Review Specialty Diagnoses / Procedures Referred By Contac t Referred To Contact Radiology Diagnoses Other abnormal glucose Procedures CT cardiac scoring wo IV contrast Lesli Márquez DO [id number] [facility] [address] [place] [address] Phone: tel: fax: Referral ID Status Reason Start Date Expiration Date Visits Requested Visits Authorized [id number] Pending Review Perform Procedure 11/16/2024 11/16/2025 1 1 [facility] Work Phone: Chief Complaint and Reason for [...] Date Thoracic aortic aneurysm February 11 8:24am Chief Complaint Admit Date HEPATIC LESION February 10, 2025 4:4 0pm Dilation of Thoracic Aorta February 11, 2 025 8:24am MONOCLONAL GAMMOPATHIES April 12, 2025 8:44am Family History No Family History Records Found [...] March 02, 2022 7 :37am Power of Chief School Finance Officer No March 02, 2022 7:37am Advance Directive Response Recorded Date/ Time Living Will No August 14 1:46pm Power of Chief School Finance Officer No August 14, 2022 1:46pm Advance Directive Response Recorded Date/ Time Living Will No August 14 12:46pm Power of Chief School Finance Officer No August 14, 2022 12:46pm Summary Purpose [...] DATE CREATED AUTHOR AUTHOR'S ORGANIZ ATION 10/04/2023 [facility] DATE CREATED AUTHOR AUTHOR'S ORGANIZ ATION 01/02/2025 [facility] DATE CREATED AUTHOR AUTHOR'S ORGANIZ ATION 08/06/2025 [facility] Care Teams (unrecognized sec tion and content) [...] Pr ovider, Attending Provider, Referring Provider Active 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 eLsli Márquez DO Attending Provider Active Start: February [...] March 19, 2025 End: March 19, 2025 Team Status: Active Member Role/Relationship Status Dates Dr. Lesli Márquez DO Primary Care Provider Active Team Status: Inactive Member Role/Relationship Status Dates Dr. Lesli Márquez DO Primary Care Provider Active Start: February 10, 2025 End: February 10, 2025 Dr. Lesli Márquez DO Attending Provider Active Start: February 10, 2025 End: February 10, 2025 Dr. Lesli Márquez DO Referring Provider Active Start: February 10, 2025 End: February 10, 2025 Team Status: Inactive Member Role/Relationship Status Dates Dr. Lesli Márquez DO Primary Care Provider Active Start: February 11, 2025 End: February 11, 2025 Dr. Lesli Márquez DO Referring Provider Active Start: February 11, 2025 End: February 11, 2025 BYRON Tovar Attending Provider Active Star t: February 11, 2025 End: February 11, 2025 Team Status: Inactive Member Role/Relationship Status Dates Dr. Lesli Márquez DO Primary Care Provider Active Start: March 19, 2025 End: March 19, 2025 Dr. Lesli Márquez DO Attending Provider Active Start: March 19, 2025 End: March 19, 2025 Dr. Lesli Márquez DO Referring Provider Active Start: March 19, 2025 End: March 19, 2025 Team Status: Inactive Member Role/Relationship Status Dates Dr. Lesli Márquez DO Primary Care Provider Active Start: April 12, 2025 End: April 12, 2025 Dr. Lesli Márquez DO Attending Provider Active Start: April 12, 2025 End: April 12, 2025 Dr. Lesli Márquez DO Referring Provider Active Start: April 12, 2025 End: April 12, 2025 FOR RECORDS PERTAINING TO PATIENTS WHO [...] BE BASED ON THE PRIMARY CLINICAL RECORDS. [employer] [facility]. provides no warranty or guarantee of the accuracy or completeness of information in this document.
--- OUTSIDE RECORDS SUMMARY | 2025-08-06 10:20 | XMS RPT_ITS | CCD ---
Author Organization [facility] Care Team Providers Care Handle Bender Name Role Phone Lesli Márquez DO Unavailable [phone] Melo RN, Octavia Unavailable Unavailable Erick ARRIOLA, Violet Villafuerte Unavailable Unavailable Drapery And Upholstery Measurer, System Unavailable Unavailable Heena Maciel Unavailable Unavailable Michael UPHOLSTERY SEWER, Saleem Unavailable Unavailable Unavailable Unavailable Gravius VALIDATION SOFTWARE FACILITATOR, Sofiya Unavailable Unavailable Slarb UPHOLSTERY SEWER, Alycia Unavailable Unavailable Cuthbert VALIDATION SOFTWARE FACILITATOR, Kayela Unavailable Unavailable eLsli Márquez DO Unavailable [phone] Andrea Cordero MD Unavailable Lesli Márquez DO Attending Unavailable Lesli Márquez DO Unavailable Unavailable Unavailable [facility] Attending Unavailable LESLI MÁRQUEZ Primary Care Unavailable Lesli Márquez DO Primary Care Provider [phone] LESLI MÁRQUEZ Referring Unavailable LESLI MÁRQUEZ Primary Care Unavailable Dr. Lesli Márquez DO Primary Care Provider Dr. Lesli Márquez DO Attending Provider Dr. Lesli Márquez DO Referring Provider Gardenia Christensen Attending Provider Dr. Lesli Márquez DO Primary Care Provider Dr. Lesli Márquez DO Attending Provider Dr. Lesli Márquez DO Referring Provider Lesli [...] 10MG (Oral Tablet)] Drug Allergy 2 Other [facility] Work Phone: Comment on above: kidneys shut down SHUTS MY KIDNEYS DO WN (20 sources) beef allergenic extract Drug Allergy [facility] Work Phone: Comment on above: Nausea (1 source) ALLERGIES NOT ON FILE; Translations: [ALLERGIES NOT ON FILE] Propensity to adverse reactions (disorder) [facility] 2 Repository (3 sources) Latex Allergy to substance 5 Rash [facility] (3 sources) Beef Containing Products [facility] Comment on above: ITCHING, SWELLING, N /V/D (1 source) Ketorolac Drug Allergy 4 [facility] Repository (1 source) Latex Drug allergy (disorder) 5 [facility] Repository (1 source) Beef Containing Products Drug allergy (disorder) 4 [facility] Repository Medications Current Medications Medication Drug Class(es) [...] 0 days Refills: 0 Ordered: 10-Jul-2022 Nguyen VALIDATION SOFTWARE FACILITATOR, Kayela Active MULTIVITAMIN (Or al Liquid) for 0 days Refills: 0 Ordered: 16-May-2022 Gravius VALIDATION SOFTWARE FACILITATOR, Sofiya Active MULTIVITAMIN (Or al Liquid) for 0 days Refills: 0 Ordered: 11-Mar-2022 [place] UPHOLSTERY SEWER, Alycia Active MULTIVITAMIN (Or al Liquid) for [...] per -. take 1 capsule by mo [facility] three times daily CALCIUM & MAGNESIUM [...] by mouth every week Drisdol 1.25 MG (14287 UT) Oral Capsule tad Capsule weekly for 0 days Quantity: 8 {Capsule} Refills: 4 Ordered: 11-Mar-2022 Alycia Maldonado LPN Start : 24-May-2010 End : 11-Mar-2022 Inactive Comments: 1 tab 2 x week for 4 weeks then 1 tab weekly End: 08-16-2022 take 1 tablet by mouth every week ERGOCALCIFEROL, 37344FR (PO Tab) 1 qo week for 0 days Refills: 0 Ordered: 16-Aug-2022 Saleem Rodriguez LPN End : 16-Aug-2022 Discontinued Comments: This order discontinued per -. Comment on above: 1 tab 2 x week for 4 weeks then 1 tab weekly This order discontin ued per -Span. 168 hr ethinyl estradiol 0.41290 mg/hr / norelgestromin 0.98484 mg/hr transdermal system (20 sources) Progestin, Estrogen [...] Chest W/WO Contraston CTA Chest W/WO Contrast [facility] Imaging Services [address] [place] [address] [id number] CTA Chest W/WO Contrast MR#: [id number] Acct: [id number] Name: ALIX PALMER Rep #: [id number] : 1975 F 49 From: Glenn Vallejo MD PCP: Dr. Lesli Márquez, DO Status: [facility] CL Study: CTA Chest W/WO Contrast Date of Exam: 07/28/25 Exam# [id number] Ordering Dr: Gardenia Dawson PROCEDURE: CTA CHEST [...] evidence of acute cardiopulmonary pathology. Reading Location: [place] [address] CC: BYRON Tovar; Dr. Lesli Márquez DO Junior Database Administrator: Signed Normal [facility] Bone Survey Comp(Axial Appen d)on 04-12-2025 Bone Survey Comp(Axial Append) [facility] Imaging Services [address] [place] [address] [id number] Bone Survey Comp(Axial Append) MR#: [id number] Acct: [id number] Name: ALIX PALMER Rep #: [id number] : 1975 F 49 From: Adolfo valencia MD PCP: Dr. Lesli Márquez DO Status: REG CLI Study: Bone Survey Comp(Axial Append) Date of Exam: 0 04/12/25 Exam# [id number] Ordering Dr: Lesli Márquez DO PROCEDURE: BONE SURVEY COMP(AXIAL APPEND) 04/12/2025 REASON FOR EXAM: MONOCLONAL GAMMOPATHIES F, age 49 y/o . TECHNIQUE: Skeletal survey. COMPARISON: None. FINDINGS: No lytic or blastic aggressive bone lesion is identified. No fracture or dislocation is seen. No periosteal reaction is noted. Mild diffuse spondylosis. RAD/Bone Survey Comp(Axial Append) IMPRESSION: No suspicious bone lesion is identified. [facility] CC: Dr. Lesli Márquez, DO Junior Database Administrator: Signed Normal [facility] Hepatitis B Core Ab Totalon 03-23-2025 HEP B CORE,TOT Negative Normal Negative [facility] Comment on above: Result Comment: Perf ormed at: - [facility] [address] [id number] Flask Maker: Ramon Bell PhD, Phone: [phone] Performed By: #### L 500.4100, L3100.3450, L506.1000, L3600.4000 #### [facility] [address] [place], [place], [facility] KAVON + Protein Elect, Serumon 03-23-2025 Albumin [Mass/Vol] 3.3 g/dL Normal 2.9-4.4 [facility] Comment on above: Order Comment: N Performed By: #### L 500.4100, L3100.3450, L506.1000, L3600.4000 #### [facility] [address] [place], [address] Albumin/Globulin [Mass ratio] 0.9 {ratio} Normal 0.7-1.7 [facility] Comment on above: Order Comment: N Performed By: #### L 500.4100, L3100.3450, L506.1000, L3600.4000 #### [facility] [address] [facility] [address] IAWBB-0-XAGI 0.3 g/dL Normal 0.0-0.4 [facility] Comment on above: Order Comment: N Performed By: #### L 500.4100, L3100.3450, L506.1000, L3600.4000 #### [facility] [address] [place], [address] ALIMR-5-WWOF 0.8 g/dL Normal 0.4-1.0 [facility] Comment on above: Order Comment: N Performed By: #### L 500.4100, L3100.3450, L506.1000, L3600.4000 #### [facility] [address] [place], [address] BETA GLOBULIN 1.3 g/dL Normal 0.7-1.3 [facility] Comment on above: Order Comment: N Performed By: #### L 500.4100, L3100.3450, L506.1000, L3600.4000 #### [facility] [address] [place], [address] GAMMA GLOBULIN 1.7 g/dL Normal 0.4-1.8 [facility] Comment on above: Order Comment: N Performed By: #### L 500.4100, L3100.3450, L506.1000, L3600.4000 #### [facility] [address] [place], [address] Globulin (S) [Mass/Vol] 4.0 g/dL Abnormal 2.2-3.9 [facility] Comment on above: Order Comment: N Performed By: #### L 500.4100, L3100.3450, L506.1000, L3600.4000 #### [facility] [address] [place], [address] KAVON RESULT,S Comment Normal . [facility] Comment on above: Order Comment: N Result Comment: No m onoclonality detected. Performed By: #### L 500.4100, L3100.3450, L506.1000, L3600.4000 #### [facility] [address] [place], [address] IMMUNOGLOB A QN 380 mg/dL High 87-352 [facility] Comment on above: Order Comment: N Performed By: #### L 500.4100, L3100.3450, L506.1000, L3600.4000 #### [facility] [address] [place], [address] IMMUNOGLOB G QN 1875 mg/dL High 586-1602 [facility] Comment on above: Order Comment: N Performed By: #### L 500.4100, L3100.3450, L506.1000, L3600.4000 #### [facility] [address] [place], [address] IMMUNOGLOB M QN 109 mg/dL Normal 26-217 [facility] Comment on above: Order Comment: N Performed By: #### L 500.4100, L3100.3450, L506.1000, L3600.4000 #### [facility] [address] [place], [address] M-Terrance Not Observed Normal Not Observed [facility] Comment on above: Order Comment: N Performed By: #### L 500.4100, L3100.3450, L506.1000, L3600.4000 #### [facility] [address] [place], [address] NOTE: Comment Normal . [facility] Comment on above: Order Comment: N Result Comment: Prot ein electrophoresis scan will follow via computer, mail, or learning coach delivery. Performed By: #### L 500.4100, L3100.3450, L506.1000, L3600.4000 #### [facility] [address] [place], [address] Protein [Mass/Vol] 7.3 g/dL Normal 6.0-8.5 [facility] Comment on above: Order Comment: N Performed By: #### L 500.4100, L3100.3450, L506.1000, L3600.4000 #### [facility] [address] [place], [address] [place] Lambda Light Chainson 03-23-2025 FR KAPPA LT CHN 30.8 mg/L Abnormal 3.3-19.4 [facility] Comment on above: Performed By: #### L 500.4100, L3100.3450, L506.1000, L3600.4000 #### [facility] [address] [place], [address] FR LAMBDA LT CH 20.6 mg/L Normal 5.7-26.3 [facility] Comment on above: Performed By: #### L 500.4100, L3100.3450, L506.1000, L3600.4000 #### [facility] [address] [place], [address] KAPPA/LAMBDA % 1.50 Normal 0.26-1.65 [facility] Comment on above: Performed By: #### L 500.4100, L3100.3450, L506.1000, L3600.4000 #### [facility] [address] [place], [address] L501.5101on 03-23-2025 GGTP 27 IU/L Normal 0-60 [facility] Comment on above: Performed By: #### L 500.4100, L3100.3450, L506.1000, L3600.4000 #### [facility] [address] [place], [address] Urine Cultureon 03-21-2025 URC Mixed Gram Positive Organisms Murray Count 50,000-80,000 MIXC Mixed contaminants. Submit a new specimen if indicated. Normal [facility] Comment on above: Performed By: #### L 500.4100, L3100.3450, L506.1000, L3600.4000 #### [facility] [address] [place], [address] Absolute lymphocyte countOrd ered By: Lesli Márquez on 03-19-2025 Lymphocytes Auto (Unsp spec) [#/Vol] 2.02 10*3/uL 0.83-4.51 [facility] Absolute neutrophil countOrd ered By: Lesli Márquez on 03-19-2025 Neutrophils (Bld) [#/Vol] 3.9 10*3/uL 2.0-7.7 [facility] Activated partial thrombopla stin time (aPTT) in platelet poor plasma by coagulation aOrdered By: Lesli Márquez on 03-19-2025 aPTT Coag (PPP) [Time] 23.8 s Low 24.1-36.2 [facility] Albumin Elph [Mass/Vol]Order ed By: Lesli Márquez on 03-19-2025 Albumin [Mass/Vol] 3.3 g/dL 2.9-4.4 [facility] Anion gap in Serum or Plasma Ordered By: Lesli Márquez on 03-19-2025 Anion gap [Moles/Vol] 11 mmol/L 5-15 [facility] Automated lymphocyte count a s percentage of total leukocytesOrdered By: Lesli áMrquez on 03-19-2025 Lymphocytes/100 WBC Auto (Unsp spec) 29.0 % 19-41 [facility] BUN/creatinine ratioOrdered By: Lesli Márquez on 03-19-2025 Urea nitrogen/Creatinine [Mass ratio] 16.4 mg/mg 10-20 [facility] Basophil percentageOrdered B y: Lesli Márquez on 03-19-2025 Basophils/100 WBC (Bld) 0.9 % 0-1 [facility] Bilirubin Test strip Ql (U)O rdered By: Lesli Márquez on 03-19-2025 Bilirubin Ql (U) Negative Negative [facility] Bilirubin, totalOrdered By: Lesli Márquez on 03-19-2025 Bilirubin [Mass/Vol] 0.44 mg/dL 0.00-1.30 [facility] CBC W/Diff, Automatedon 02-19 Absolute Lymph 2.02 X10 3/uL Normal 0.83-4.51 [facility] Comment on above: Performed By: #### L 500.4050, L501.6710, L100.0100, L506.0400, L501.5200, L504.2610, L101.9900, L3100.0460, L501.9520, L501.1400, M100.2200, L3130.0010, L300.3900, L506.0200, L501.9985, L300.4310, L501.5101, L503.0106, L100.9950, L501.2300, L400.0001, L3100.3425 #### [facility] [address] [facility] [place], [place], [id number] (860) Absolute Neut 3.9 X10 3/uL Normal 2.0-7.7 [facility] Comment on above: Performed By: #### L 500.4050, L501.6710, L100.0100, L506.0400, L501.5200, L504.2610, L101.9900, L3100.0460, L501.9520, L501.1400, M100.2200, L3130.0010, L300.3900, L506.0200, L501.9985, L300.4310, L501.5101, L503.0106, L100.9950, L501.2300, L400.0001, L3100.3425 #### [facility] [address] [place], [place], [id number] Basophils/100 WBC (Bld) 0.9 % Normal 0-1 [facility] Comment on above: Performed By: #### L 500.4050, L501.6710, L100.0100, L506.0400, L501.5200, L504.2610, L101.9900, L3100.0460, L501.9520, L501.1400, M100.2200, L3130.0010, L300.3900, L506.0200, L501.9985, L300.4310, L501.5101, L503.0106, L100.9950, L501.2300, L400.0001, L3100.3425 #### [facility] [address] [place], [place], [id number] (274) Eosinophils/100 WBC (Bld) 2.3 % Normal 0-5 [facility] Comment on above: Performed By: #### L 500.4050, L501.6710, L100.0100, L506.0400, L501.5200, L504.2610, L101.9900, L3100.0460, L501.9520, L501.1400, M100.2200, L3130.0010, L300.3900, L506.0200, L501.9985, L300.4310, L501.5101, L503.0106, L100.9950, L501.2300, L400.0001, L3100.3425 #### [facility] [address] [place], [address] (723) Erythrocyte distribution width (RBC) [Ratio] 14.0 % Normal 11.6-14.6 [facility] Comment on above: Performed By: #### L 500.4050, L501.6710, L100.0100, L506.0400, L501.5200, L504.2610, L101.9900, L3100.0460, L501.9520, L501.1400, M100.2200, L3130.0010, L300.3900, L506.0200, L501.9985, L300.4310, L501.5101, L503.0106, L100.9950, L501.2300, L400.0001, L3100.3425 #### [facility] [address] [place] [place], [address] (877) Hematocrit (Bld) [Volume fraction] 38.4 % Normal 37-47 [facility] Comment on above: Performed By: #### L 500.4050, L501.6710, L100.0100, L506.0400, L501.5200, L504.2610, L101.9900, L3100.0460, L501.9520, L501.1400, M100.2200, L3130.0010, L300.3900, L506.0200, L501.9985, L300.4310, L501.5101, L503.0106, L100.9950, L501.2300, L400.0001, L3100.3425 #### [facility] [address] [place], [place], [id number] Hemoglobin (Bld) [Mass/Vol] 12.4 g/dL Normal 12.0-15.0 [facility] Comment on above: Performed By: #### L 500.4050, L501.6710, L100.0100, L506.0400, L501.5200, L504.2610, L101.9900, L3100.0460, L501.9520, L501.1400, M100.2200, L3130.0010, L300.3900, L506.0200, L501.9985, L300.4310, L501.5101, L503.0106, L100.9950, L501.2300, L400.0001, L3100.3425 #### [facility] [address] [place], [place], [id number] IG% 0.300 Normal 0.0-0.9 [facility] Comment on above: Result Comment: IG% - Immature Granulocytes (promyelocytes, myelocytes and metamyelocytes) > 1% indicates that a LEFT SHIFT is Present. Performed By: #### L 500.4050, L501.6710, L100.0100, L506.0400, L501.5200, L504.2610, L101.9900, L3100.0460, L501.9520, L501.1400, M100.2200, L3130.0010, L300.3900, L506.0200, L501.9985, L300.4310, L501.5101, L503.0106, L100.9950, L501.2300, L400.0001, L3100.3425 #### [facility] [address] [place], [place], [id number] (039) Lymphocytes/100 WBC (Bld) 29.0 % Normal 19-41 [facility] Comment on above: Performed By: #### L 500.4050, L501.6710, L100.0100, L506.0400, L501.5200, L504.2610, L101.9900, L3100.0460, L501.9520, L501.1400, M100.2200, L3130.0010, L300.3900, L506.0200, L501.9985, L300.4310, L501.5101, L503.0106, L100.9950, L501.2300, L400.0001, L3100.3425 #### [facility] [address] [place], [place], [id number] (234) MCH (RBC) [Entitic mass] 28.4 pg Normal 27.0-32.0 [facility] Comment on above: Performed By: #### L 500.4050, L501.6710, L100.0100, L506.0400, L501.5200, L504.2610, L101.9900, L3100.0460, L501.9520, L501.1400, M100.2200, L3130.0010, L300.3900, L506.0200, L501.9985, L300.4310, L501.5101, L503.0106, L100.9950, L501.2300, L400.0001, L3100.3425 #### [facility] [address] [place], [address] (147) MCHC (RBC) [Mass/Vol] 32.3 g/dL Normal 32-36 [facility] Comment on above: Performed By: #### L 500.4050, L501.6710, L100.0100, L506.0400, L501.5200, L504.2610, L101.9900, L3100.0460, L501.9520, L501.1400, M100.2200, L3130.0010, L300.3900, L506.0200, L501.9985, L300.4310, L501.5101, L503.0106, L100.9950, L501.2300, L400.0001, L3100.3425 #### [facility] [address] [place], [address] MCV (RBC) [Entitic vol] 88.1 fL Normal 81-99 [facility] Comment on above: Performed By: #### L 500.4050, L501.6710, L100.0100, L506.0400, L501.5200, L504.2610, L101.9900, L3100.0460, L501.9520, L501.1400, M100.2200, L3130.0010, L300.3900, L506.0200, L501.9985, L300.4310, L501.5101, L503.0106, L100.9950, L501.2300, L400.0001, L3100.3425 #### [facility] [address] [place], [address] Monocytes/100 WBC (Bld) 11.8 % High 0-10 [facility] Comment on above: Performed By: #### L 500.4050, L501.6710, L100.0100, L506.0400, L501.5200, L504.2610, L101.9900, L3100.0460, L501.9520, L501.1400, M100.2200, L3130.0010, L300.3900, L506.0200, L501.9985, L300.4310, L501.5101, L503.0106, L100.9950, L501.2300, L400.0001, L3100.3425 #### [facility] [address] [place], [address] Neutrophils/100 WBC (Bld) 55.7 % Normal 47-70 [facility] Comment on above: Performed By: #### L 500.4050, L501.6710, L100.0100, L506.0400, L501.5200, L504.2610, L101.9900, L3100.0460, L501.9520, L501.1400, M100.2200, L3130.0010, L300.3900, L506.0200, L501.9985, L300.4310, L501.5101, L503.0106, L100.9950, L501.2300, L400.0001, L3100.3425 #### [facility] [address] [place], [address] Nucleated RBC (Bld) [#/Vol] 0 10*3/uL Normal 0-5 [facility] Comment on above: Performed By: #### L 500.4050, L501.6710, L100.0100, L506.0400, L501.5200, L504.2610, L101.9900, L3100.0460, L501.9520, L501.1400, M100.2200, L3130.0010, L300.3900, L506.0200, L501.9985, L300.4310, L501.5101, L503.0106, L100.9950, L501.2300, L400.0001, L3100.3425 #### [facility] [address] [place], [address] Platelet mean volume (Bld) [Entitic vol] 10.9 fL Normal 6.2-12.0 [facility] Comment on above: Performed By: #### L 500.4050, L501.6710, L100.0100, L506.0400, L501.5200, L504.2610, L101.9900, L3100.0460, L501.9520, L501.1400, M100.2200, L3130.0010, L300.3900, L506.0200, L501.9985, L300.4310, L501.5101, L503.0106, L100.9950, L501.2300, L400.0001, L3100.3425 #### [facility] [address] [place], [place], [id number] (413) Platelets (Bld) [#/Vol] 310 10*3/uL Normal 150-450 [facility] Comment on above: Performed By: #### L 500.4050, L501.6710, L100.0100, L506.0400, L501.5200, L504.2610, L101.9900, L3100.0460, L501.9520, L501.1400, M100.2200, L3130.0010, L300.3900, L506.0200, L501.9985, L300.4310, L501.5101, L503.0106, L100.9950, L501.2300, L400.0001, L3100.3425 #### [facility] [address] [facility] [address] [place], [place], [id number] (232) RBC (Bld) [#/Vol] 4.36 10*6/uL Normal 4.2-5.4 [facility] Comment on above: Performed By: #### L 500.4050, L501.6710, L100.0100, L506.0400, L501.5200, L504.2610, L101.9900, L3100.0460, L501.9520, L501.1400, M100.2200, L3130.0010, L300.3900, L506.0200, L501.9985, L300.4310, L501.5101, L503.0106, L100.9950, L501.2300, L400.0001, L3100.3425 #### [facility] [address] [place], [place], [id number] (933) RDW SD 45.1 fl High 35.1-43.9 [facility] Comment on above: Performed By: #### L 500.4050, L501.6710, L100.0100, L506.0400, L501.5200, L504.2610, L101.9900, L3100.0460, L501.9520, L501.1400, M100.2200, L3130.0010, L300.3900, L506.0200, L501.9985, L300.4310, L501.5101, L503.0106, L100.9950, L501.2300, L400.0001, L3100.3425 #### [facility] [address] [place], [place], [id number] WBC (Bld) [#/Vol] 7.0 10*3/uL Normal 4.4-11.0 [facility] Comment on above: Performed By: #### L 500.4050, L501.6710, L100.0100, L506.0400, L501.5200, L504.2610, L101.9900, L3100.0460, L501.9520, L501.1400, M100.2200, L3130.0010, L300.3900, L506.0200, L501.9985, L300.4310, L501.5101, L503.0106, L100.9950, L501.2300, L400.0001, L3100.3425 #### [facility] [address] [place], [address] CRPon 03-19-2025 C-REACTIVE PROT 25.10 mg/L High 0.0-3.0 [facility] Comment on above: Performed By: #### L 500.4100, L3100.3450, L506.1000, L3600.4000 #### [facility] [address] [place], [address] Carbon dioxide, total [Moles /volume] in Central venous bloodOrdered By: Lesli Márquez on 03-19-2025 CO2 [Moles/Vol] 22.6 mmol/L 21.0-32.0 [facility] Chloride assayOrdered By: Liliya patricknalini Darinel on 03-19-2025 Chloride [Moles/Vol] 102 mmol/L 98-108 [facility] Comprehensive Metabolic Prof ilon 03-19-2025 Albumin [Mass/Vol] 3.7 g/dL Normal 3.5-5.0 [facility] Comment on above: Performed By: #### L 500.4100, L3100.3450, L506.1000, L3600.4000 #### [facility] [address] [place], [address] Albumin/Globulin [Mass ratio] 0.9 {ratio} Normal 0.9-2.4 [facility] Comment on above: Performed By: #### L 500.4100, L3100.3450, L506.1000, L3600.4000 #### [facility] [address] [place], [address] ALK PHOS 118 U/L High 35-104 [facility] Comment on above: Performed By: #### L 500.4100, L3100.3450, L506.1000, L3600.4000 #### [facility] [address] [place], [address] ALT [Catalytic activity/Vol] 20 U/L Normal <=34 [facility] Comment on above: Performed By: #### L 500.4100, L3100.3450, L506.1000, L3600.4000 #### [facility] [address] [place], [address] AST [Catalytic activity/Vol] 27 U/L Normal <=31 [facility] Comment on above: Performed By: #### L 500.4100, L3100.3450, L506.1000, L3600.4000 #### [facility] [address] [place], [address] Bilirubin [Mass/Vol] 0.44 mg/dL Normal 0.00-1.30 [facility] Comment on above: Performed By: #### L 500.4100, L3100.3450, L506.1000, L3600.4000 #### [facility] [address] [place], [address] BUN/CRE 16.4 RATIO Normal 10-20 [facility] Comment on above: Performed By: #### L 500.4100, L3100.3450, L506.1000, L3600.4000 #### [facility] [address] [place], [address] Calcium [Mass/Vol] 8.6 mg/dL Normal 7.6-11.0 [facility] Comment on above: Performed By: #### L 500.4100, L3100.3450, L506.1000, L3600.4000 #### [facility] [address] [place], [address] Chloride [Moles/Vol] 102 mmol/L Normal 98-108 [facility] Comment on above: Performed By: #### L 500.4100, L3100.3450, L506.1000, L3600.4000 #### [facility] [address] [place], [address] CO2 [Moles/Vol] 22.6 mmol/L Normal 21.0-32.0 [facility] Comment on above: Performed By: #### L 500.4100, L3100.3450, L506.1000, L3600.4000 #### [facility] [address] [place], [address] Creatinine [Mass/Vol] 0.58 mg/dL Low 0.70-1.20 [facility] Comment on above: Performed By: #### L 500.4100, L3100.3450, L506.1000, L3600.4000 #### [facility] [address] [place], [address] GAP 11 Normal 5-15 [facility] Comment on above: Performed By: #### L 500.4100, L3100.3450, L506.1000, L3600.4000 #### [facility] [address] [place], [address] GFR/1.73 sq M.predicted among non-blacks MDRD (S/P/Bld) [Vol rate/Area] 112 mL/min/{1.73_m2} Normal >60 [facility] Comment on above: Result Comment: mL/m in/1.73m2 CKD-EPI Creatinine Equation (2020) Performed By: #### L 500.4100, L3100.3450, L506.1000, L3600.4000 #### [facility] [address] [place], [address] Globulin (S) [Mass/Vol] 3.9 g/dL Normal 2.2-4.2 [facility] Comment on above: Performed By: #### L 500.4100, L3100.3450, L506.1000, L3600.4000 #### [facility] [address] [place], [address] Glucose [Mass/Vol] 100 mg/dL High 70-99 [facility] Comment on above: Performed By: #### L 500.4100, L3100.3450, L506.1000, L3600.4000 #### [facility] [address] [place], [address] Potassium [Moles/Vol] 4.1 mmol/L Normal 3.3-5.1 [facility] Comment on above: Performed By: #### L 500.4100, L3100.3450, L506.1000, L3600.4000 #### [facility] [address] [place], [address] Sodium [Moles/Vol] 135 mmol/L Normal 133-145 [facility] Comment on above: Performed By: #### L 500.4100, L3100.3450, L506.1000, L3600.4000 #### [facility] [address] [place], [address] T PROT 7.7 g/dL Normal 5.9-8.4 [facility] Comment on above: Performed By: #### L 500.4100, L3100.3450, L506.1000, L3600.4000 #### [facility] [address] [place], [place], [id number] Urea nitrogen [Mass/Vol] 10 mg/dL Normal 4-19 [facility] Comment on above: Performed By: #### L 500.4100, L3100.3450, L506.1000, L3600.4000 #### [facility] [address] [place], [place], [id number] Eosinophil percentageOrdered By: Lesli Márquez on 03-19-2025 Eosinophils/100 WBC (Bld) 2.3 % 0-5 [facility] Erythrocyte Sed Rateon 03-19 SED RATE 31 mm/hr High 0-30 [facility] Comment on above: Performed By: #### L 500.4050, L501.6710, L100.0100, L506.0400, L501.5200, L504.2610, L101.9900, L3100.0460, L501.9520, L501.1400, M100.2200, L3130.0010, L300.3900, L506.0200, L501.9985, L300.4310, L501.5101, L503.0106, L100.9950, L501.2300, L400.0001, L3100.3425 #### [facility] [address] [place], [address] Erythrocyte distribution wid th ratioOrdered By: Lesli Márquez on 03-19-2025 Erythrocyte distribution width (RBC) [Ratio] 14.0 % 11.6-14.6 [facility] Erythrocyte distribution wid th standard deviationOrdered By: Lesli Máruqez on 03-19-2025 Erythrocyte distribution width (RBC) [Ratio] 45.1 fl High 35.1-43.9 [facility] Erythrocyte sedimentation ra teOrdered By: Lesli Márquez on 03-19-2025 ESR (Bld) [Velocity] 31 mm/h High 0-30 [facility] Folate [Moles/volume] in Ser um or PlasmaOrdered By: Lesli Márquez on 03-19-2025 Folate [Moles/Vol] 16.30 ng/mL 4.60-34.80 [facility] Folates,Serum (Folic Acid)on 03-19-2025 FOLATES,SERUM 16.30 ng/mL Normal 4.60-34.80 [facility] Comment on above: Order Comment: N Performed By: #### L 500.4100, L3100.3450, L506.1000, L3600.4000 #### [facility] [address] [place], [place] [address] [place], [address] Gamma glutamyl transferase ( GGT) measurementOrdered By: Lesli Márquez on 03-19-2025 Amylase [Catalytic activity/Vol] 27 U/L 0-60 [facility] Glomerular filtration rate ( GFR) estimation/1.73 sq m using serum, plasma, or whole bOrdered By: Lesli Márquez on 03-19-2025 GFR/1.73 sq M.predicted among non-blacks MDRD (S/P/Bld) [Vol rate/Area] 112 mL/min/{1.73_m2} >60 [facility] Comment on above: mL/min/1.73m2 CKD-EP I Creatinine Equation (2020) Hematocrit Auto (Bld) [Volum e fraction]Ordered By: Lesli Márquez on 03-19-2025 Hematocrit (Bld) [Volume fraction] 38.4 % 37-47 [facility] Hemoglobin A1con 03-19-2025 HbA1c (Bld) [Mass fraction] 5.3 % Normal <=5.6 [facility] Comment on above: Result Comment: Norm al < 5.7 % Prediabetic 5.7 - 6.4 % Diabetic >or= 6.5 % Please note range changes. Performed By: #### L 500.4100, L3100.3450, L506.1000, L3600.4000 #### [facility] [address] [place], [place], [id number] Hemoglobin A1c percentageOrd ered By: Lesli Márquez on 03-19-2025 HbA1c (Bld) [Mass fraction] 5.3 % <5.7 [facility] Comment on above: Normal < 5.7 % Predi abetic 5.7 - 6.4 % Diabetic >or= 6.5 % Please note range changes. Hemoglobin measurementOrdere d By: Lesli Márquez on 03-19-2025 Hemoglobin (Bld) [Mass/Vol] 12.4 g/dL 12.0-15.0 [facility] Immature granulocytes/100 WB C Auto (Bld)Ordered By: Lesli Márquez on 03-19-2025 Immature granulocytes/100 WBC (Bld) 0.300 % 0.0-0.9 [facility] Comment on above: IG% - Immature Granu locytes (promyelocytes, myelocytes and metamyelocytes) > 1% indicates that a LEFT SHIFT is Present. International normalized rat io (INR) calculationOrdered By: Lesli Márquez on 03-19-2025 INR Coag (Bld) [Relative time] 1.0 {INR} [facility] Interpretation of serum or p lasma protein pattern by immunofixation (narrative resultOrdered By: Lesli Márquez on 03-19-2025 Protein Fractions Immunofixation Shiva [Interp] Not Observed g/dL Not Observed [facility] Ketones Test strip Ql (U)Ord ered By: Lesli Márquez on 03-19-2025 Ketones Ql (U) Negative Negative [facility] LDHon 03-19-2025 LDH 198 U/L Normal 84-246 [facility] Comment on above: Order Comment: 1 Performed By: #### L 500.4100, L3100.3450, L506.1000, L3600.4000 #### [facility] [address] [place], [place], [id number] Laboratory - Chemistry and C hemistry - challengeOrdered By: Lesli Márquez on 05-31-2025 AST [Catalytic activity/Vol] 27 U/L <32 [facility] Lactate dehydrogenase (LDH) measurementOrdered By: Lesli Márquez on 03-19-2025 LDH [Catalytic activity/Vol] 198 U/L 84-246 [facility] MCV (mean corpuscular volume ) determinationOrdered By: Lesli Márquez on 03-19-2025 MCV (RBC) [Entitic vol] 88.1 fL 81-99 [facility] Magnesiumon 03-19-2025 Magnesium [Mass/Vol] 2.0 mg/dL Normal 1.5-2.2 [facility] Comment on above: Performed By: #### L 500.4100, L3100.3450, L506.1000, L3600.4000 #### [facility] [address] [place], [address] Magnesium measurement (mass/ volume)Ordered By: Lesli Márquez on 03-19-2025 Magnesium (Unsp spec) [Mass/Vol] 2.0 mg/dL 1.5-2.2 [facility] Mean corpuscular hemoglobin (MCH) determinationOrdered By: Lesli Márquez on 03-19-2025 MCH (RBC) [Entitic mass] 28.4 pg 27.0-32.0 [facility] Mean corpuscular hemoglobin concentration (MCHC) determinationOrdered By: Lesli Máqruez on 03-19-2025 MCHC (RBC) [Mass/Vol] 32.3 g/dL 32-36 [facility] Mean platelet volume determi nationOrdered By: Lesli Márquez on 03-19-2025 Platelet mean volume (Bld) [Entitic vol] 10.9 fL 6.2-12.0 [facility] Microscopic analysis of urin e for red blood cells (RBC)Ordered By: Lesli Márquez on 03-19-2025 Microscopic analysis of urine for red blood cells (RBC) 0-5 SEEN /hpf 0-5 [facility] Monocyte percentageOrdered B y: Lesli Márquez on 03-19-2025 Monocytes/100 WBC (Bld) 11.8 % High 0-10 [facility] Mucus LM Ql (Urine sed)Order ed By: Lesli Márquez on 03-19-2025 Mucus Ql (Urine sed) 1+ /hpf [facility] Neutrophil percentageOrdered By: Lesli Márquez on 03-19-2025 Neutrophils/100 WBC (Bld) 55.7 % 47-70 [facility] Nitrite Test strip Ql (U)Ord ered By: Lesli Máqruez on 03-19-2025 Nitrite Ql (U) Negative Negative [facility] No Panel InformationOrdered By: Lesli Márquez on 03-19-2025 Addendum Document Comment . [facility] Comment on above: Protein electrophore sis scan will follow via computer,mail, or learning coach delivery. Nucleated red blood cell per centageOrdered By: Lesli Márquez on 03-19-2025 Nucleated RBC/100 WBC (Bld) [Ratio] 0 % 0-5 [facility] Partial Thromboplast Timeon 03-19-2025 aPTT Coag (Bld) [Time] 23.8 s Low 24.1-36.2 [facility] Comment on above: Performed By: #### L 500.4100, L3100.3450, L506.1000, L3600.4000 #### [facility] [address] [place], [address] Phosphoruson 03-19-2025 Phosphate [Mass/Vol] 2.9 mg/dL Normal 2.7-4.5 [facility] Comment on above: Performed By: #### L 500.4100, L3100.3450, L506.1000, L3600.4000 #### [facility] [address] [place], [address] Platelet countOrdered By: Liliya Márquez on 03-19-2025 Platelets (Bld) [#/Vol] 310 10*3/uL 150-450 [facility] Potassium measurement (mass/ volume)Ordered By: Lesli Márquez on 03-19-2025 Potassium (Unsp spec) [Mass/Vol] 4.1 mmol/L 3.3-5.1 [facility] Protein Test strip Ql (U)Ord ered By: Lesli Márquez on 03-19-2025 Protein Ql (U) 30 mg/dl High Negative [facility] Prothrombin Time w/INRon INR Coag (PPP) [Relative time] 1.0 {INR} Normal [facility] Comment on above: Performed By: #### L 500.4050, L501.6710, L100.0100, L506.0400, L501.5200, L504.2610, L101.9900, L3100.0460, L501.9520, L501.1400, M100.2200, L3130.0010, L300.3900, L506.0200, L501.9985, L300.4310, L501.5101, L503.0106, L100.9950, L501.2300, L400.0001, L3100.3425 #### [facility] [address] [place], [address] PT Coag (PPP) [Time] 13.1 s Normal 11.7-14.9 [facility] Comment on above: Performed By: #### L 500.4050, L501.6710, L100.0100, L506.0400, L501.5200, L504.2610, L101.9900, L3100.0460, L501.9520, L501.1400, M100.2200, L3130.0010, L300.3900, L506.0200, L501.9985, L300.4310, L501.5101, L503.0106, L100.9950, L501.2300, L400.0001, L3100.3425 #### [facility] [address] [place], [address] Prothrombin timeOrdered By: Lesli Márquez on 03-19-2025 PT Coag (PPP) [Time] 13.1 s 11.7-14.9 [facility] RBC Auto (Bld) [#/Vol]Ordere d By: Lesli Márquez on 03-19-2025 RBC (Bld) [#/Vol] 4.36 10*6/uL 4.2-5.4 [facility] Retic Panelon 03-19-2025 IM RET FRACTION 20.90 High 3.00-15.90 [facility] Comment on above: Performed By: #### L 500.4050, L501.6710, L100.0100, L506.0400, L501.5200, L504.2610, L101.9900, L3100.0460, L501.9520, L501.1400, M100.2200, L3130.0010, L300.3900, L506.0200, L501.9985, L300.4310, L501.5101, L503.0106, L100.9950, L501.2300, L400.0001, L3100.3425 #### [facility] [address] [place], [place], [id number] RET-HE 31.7 pg Normal 30-35 [facility] Comment on above: Performed By: #### L 500.4050, L501.6710, L100.0100, L506.0400, L501.5200, L504.2610, L101.9900, L3100.0460, L501.9520, L501.1400, M100.2200, L3130.0010, L300.3900, L506.0200, L501.9985, L300.4310, L501.5101, L503.0106, L100.9950, L501.2300, L400.0001, L3100.3425 #### [facility] [address] [place], [place], [id number] Retic Count 1.72 High 0.5-1.5 [facility] Comment on above: Performed By: #### L 500.4050, L501.6710, L100.0100, L506.0400, L501.5200, L504.2610, L101.9900, L3100.0460, L501.9520, L501.1400, M100.2200, L3130.0010, L300.3900, L506.0200, L501.9985, L300.4310, L501.5101, L503.0106, L100.9950, L501.2300, L400.0001, L3100.3425 #### [facility] [place], [address] Reticulocyte hemoglobin equi valent (RET-He) measurementOrdered By: Lesli Márquez on 03-19-2025 Hemoglobin (Reticulocytes) [Entitic mass] 31.7 pg 30-35 [facility] Reticulocytes Auto (Bld) [#/ Vol]Ordered By: Lesli Márquez on 03-19-2025 Reticulocytes/100 RBC (Bld) 1.72 % High 0.5-1.5 [facility] Serum creatinine measurement (mass/volume)Ordered By: Lesli Márquez on 03-19-2025 Creatinine [Mass/Vol] 0.58 mg/dL Low 0.70-1.20 [facility] Serum globulin measurement ( mass/volume)Ordered By: Lesli Márquez on 03-19-2025 Globulin (S) [Mass/Vol] 4.0 g/dL High 2.2-3.9 [facility] Serum glucose measurement (m ass/volume)Ordered By: Lesli Márquez on 03-19-2025 Glucose [Mass/Vol] 100 mg/dL High 70-99 [facility] Serum hepatitis B virus core antibody detectionOrdered By: Lesli Márquez on 03-19-2025 HBV core Ab Ql (S) Negative Negative [facility] Comment on above: Performed at: [address] [id number] Director: Ramon Bell PhD, Phone: [phone] Serum immunoglobulin kappa l ight chains/immunoglobulin lambda light chains mass ratioOrdered By: Lesli Márquez on 03-19-2025 Immunoglobulin light chains.kappa/Immunoglob ulin light chains.lambda (S) [Mass ratio] 1.50 0.26-1.65 [facility] Serum or plasma C reactive p rotein measurement (mass/volume)Ordered By: Lesli Márquez on 03-19-2025 CRP [Mass/Vol] 25.10 mg/L High 0.0-3.0 [facility] Serum or plasma IgA measurem ent (mass/volume)Ordered By: Lesli Márquez on 03-19-2025 IgA [Mass/Vol] 380 mg/dL High 87-352 [facility] Serum or plasma IgG measurem ent (mass/volume)Ordered By: Lesli Márquez on 03-19-2025 IgG [Mass/Vol] 1875 mg/dL High 586-1602 [facility] Serum or plasma alanine stein otransferase (ALT) measurementOrdered By: Lesli Márquez on 03-19-2025 ALT [Catalytic activity/Vol] 20 U/L <35 [facility] Serum or plasma albumin abbey urement (mass/volume)Ordered By: Lesli Márquez on 03-19-2025 Albumin [Mass/Vol] 3.7 g/dL 3.5-5.0 [facility] Serum or plasma albumin/glob ulin mass ratioOrdered By: Lesli Márquez on 03-19-2025 Albumin/Globulin [Mass ratio] 0.9 {ratio} 0.9-2.4 [facility] Serum or plasma alkaline álvaro sphatase measurementOrdered By: Lesli Márquez on 03-19-2025 ALP [Catalytic activity/Vol] 118 U/L High 35-104 [facility] Serum or plasma alpha 1 glob ulin measurement by electrophoresis (mass/volume)Ordered By: Lesli Márquez 03-19-2025 Alpha 1 globulin Elph [Mass/Vol] 0.3 g/dL 0.0-0.4 [facility] Alpha 1 globulin Elph [Mass/Vol] 0.8 g/dL 0.4-1.0 [facility] Serum or plasma beta globuli n measurement by electrophoresis (mass/volume)Ordered By: Lesli Márquez on 03-19-2025 Beta globulin Elph [Mass/Vol] 1.3 g/dL 0.7-1.3 [facility] Serum or plasma calcium abbey urement (mass/volume)Ordered By: Lesli Márquez on 03-19-2025 Calcium [Mass/Vol] 8.6 mg/dL 7.6-11.0 [facility] Serum or plasma gamma globul in measurement by electrophoresis (mass/volume)Ordered By: Lesli Márquez on 03-19-2025 Gamma globulin Elph [Mass/Vol] 1.7 g/dL 0.4-1.8 [facility] Serum or plasma immunoelectr ophoresis interpretation (nominal result)Ordered By: Lesli Márquez on 03-19-2025 Interpretation IEP [Interp] Comment . [facility] Comment on above: No monoclonality det ected. Serum or plasma immunoglobul in kappa light chains measurement (mass/volume)Ordered By: Lesli Márquez on 03-19-2025 Immunoglobulin light chains.kappa [Mass/Vol] 30.8 mg/L High 3.3-19.4 [facility] Serum or plasma protein abbey urement (mass/volume)Ordered By: Lesli Márquez on 03-19-2025 Protein [Mass/Vol] 7.3 g/dL 6.0-8.5 [facility] Serum or plasma urea nitroge n measurement (mass/volume)Ordered By: Lesli Márquez on 03-19-2025 Urea nitrogen [Mass/Vol] 10 mg/dL 4-19 [facility] Serum or plasma uric acid me asurement (mass/volume)Ordered By: Lesli Márquez on 03-19-2025 Urate [Mass/Vol] 4.3 mg/dL 2.6-6.0 [facility] Comment on above: The drugs N-Acetylcy steine and Metamizole may falsely depress this assay. Sodium levelOrdered By: Genesis Márquez on 03-19-2025 Sodium [Moles/Vol] 135 mmol/L 133-145 [facility] Squamous epithelial cells de tection in urine sediment by light microscopyOrdered By: Lesli Márquez on 03-19-2025 Epithelial cells.squamous LM Ql (Urine sed) 0-5 SEEN /hpf 5-10 [facility] T4 Free Directon 03-19-2025 T4 FREE DIRECT 1.00 ng/dL Normal 0.76-1.46 [facility] Comment on above: Order Comment: N Performed By: #### L 500.4100, L3100.3450, L506.1000, L3600.4000 #### [facility] [address] [place], [place], [id number] T4 freeOrdered By: Lesli Suon on 03-19-2025 Free T4 [Mass/Vol] 1.00 ng/dL 0.76-1.46 [facility] TSH DL <= 0.005 mIU/L QnOrde red By: Lesli Suon on 03-19-2025 TSH Qn 2.320 uIU/mL 0.300-4.20 0 [facility] Thyroid Stim Hormone (TSH)on 03-19-2025 TSH 2.320 uIU/mL Normal 0.300-4.20 0 [facility] Comment on above: Performed By: #### L 500.4100, L3100.3450, L506.1000, L3600.4000 #### [facility] [address] [place], [place], [id number] Total proteinOrdered By: Genesis Márquez on 03-19-2025 Protein [Mass/Vol] 7.7 g/dL 5.9-8.4 [facility] Uric Acidon 03-19-2025 URIC 4.3 mg/dL Normal 2.6-6.0 [facility] Comment on above: Result Comment: The drugs N-Acetylcysteine and Metamizole may falsely depress this assay. Performed By: #### L 500.4100, L3100.3450, L506.1000, L3600.4000 #### [facility] [address] [place], [address] Urinalysis, Completeon 03-19 BACTERIA 2+ /hpf Normal None Seen [facility] Comment on above: Order Comment: CLEAN CATCH Performed By: #### L 500.4050, L501.6710, L100.0100, L506.0400, L501.5200, L504.2610, L101.9900, L3100.0460, L501.9520, L501.1400, M100.2200, L3130.0010, L300.3900, L506.0200, L501.9985, L300.4310, L501.5101, L503.0106, L100.9950, L501.2300, L400.0001, L3100.3425 #### [facility] [address] [place], [place], [id number] EPI,SQUAMOUS 0-5 SEEN Normal 5-10 [facility] Comment on above: Order Comment: CLEAN CATCH Performed By: #### L 500.4050, L501.6710, L100.0100, L506.0400, L501.5200, L504.2610, L101.9900, L3100.0460, L501.9520, L501.1400, M100.2200, L3130.0010, L300.3900, L506.0200, L501.9985, L300.4310, L501.5101, L503.0106, L100.9950, L501.2300, L400.0001, L3100.3425 #### [facility] [address] [place], [address] Mucus Ql (Urine sed) 1+ /hpf Normal [facility] Comment on above: Order Comment: CLEAN CATCH Performed By: #### L 500.4050, L501.6710, L100.0100, L506.0400, L501.5200, L504.2610, L101.9900, L3100.0460, L501.9520, L501.1400, M100.2200, L3130.0010, L300.3900, L506.0200, L501.9985, L300.4310, L501.5101, L503.0106, L100.9950, L501.2300, L400.0001, L3100.3425 #### [facility] [address] [place], [place], [id number] RBC 0-5 SEEN Normal 0-5 [facility] Comment on above: Order Comment: CLEAN CATCH Performed By: #### L 500.4050, L501.6710, L100.0100, L506.0400, L501.5200, L504.2610, L101.9900, L3100.0460, L501.9520, L501.1400, M100.2200, L3130.0010, L300.3900, L506.0200, L501.9985, L300.4310, L501.5101, L503.0106, L100.9950, L501.2300, L400.0001, L3100.3425 #### [facility] [address] [place], [place], [id number] WBC 0-5 SEEN Normal 0-5 [facility] Comment on above: Order Comment: CLEAN CATCH Performed By: #### L 500.4050, L501.6710, L100.0100, L506.0400, L501.5200, L504.2610, L101.9900, L3100.0460, L501.9520, L501.1400, M100.2200, L3130.0010, L300.3900, L506.0200, L501.9985, L300.4310, L501.5101, L503.0106, L100.9950, L501.2300, L400.0001, L3100.3425 #### [facility] [address] [place], [place], [id number] Urine clarityOrdered By: Genesis Márquez on 03-19-2025 Clarity (U) Sl. Cloudy Clear [facility] Urine color determinationOrd ered By: Lesli Márquez on 03-19-2025 Color (U) Yellow Yellow [facility] Urine cultureOrdered By: Genesis Márquez on 03-19-2025 Bacteria identified Cx Nom (U) Positive Abnormal [facility] Urine glucose detectionOrder ed By: Lesli Márquez on 03-19-2025 Glucose Ql (U) Normal mg/dl Normal [facility] Urine leukocyte esterase det ection by dipstickOrdered By: Lesli Márquez on 03-19-2025 Leukocyte esterase Test strip Ql (U) Negative Negative [facility] Urine pHOrdered By: Lesli Márquez on 03-19-2025 pH (U) 6.5 [pH] 5.0 - 8.0 [facility] Urine sediment bacteria coun t by microscopy (number/high power field)Ordered By: Lesli Márquez on 03-19-2025 Bacteria LM.HPF (Urine sed) [#/Area] 2 /[HPF] None Seen [facility] Urine specific gravity measu rementOrdered By: Lesli Márquez on 03-19-2025 Specific gravity (U) [Rel density] 1.010 1.002-1.03 0 [facility] Urine urobilinogen measureme ntOrdered By: Lesli Márquez on 03-19-2025 Urobilinogen Ql (U) Normal mg/dl Normal [facility] Vitamin B12on 03-19-2025 Cobalamin (Vitamin B12) [Mass/Vol] 609 pg/mL Normal 180-914 [facility] Comment on above: Performed By: #### L 500.4100, L3100.3450, L506.1000, L3600.4000 #### [facility] Laboratory [address] [place], [address] Vitamin B12 ser/plasOrdered By: Lesli Márquez on 03-19-2025 Cobalamin (Vitamin B12) [Mass/Vol] 609 pg/mL 180-914 [facility] White blood cell (WBC) count Ordered By: Lesli Márquez on 03-19-2025 WBC (Bld) [#/Vol] 7.0 10*3/uL 4.4-11.0 [facility] White blood cell countOrdere d By: Lesli Márquez on 03-19-2025 White blood cell count 0-5 SEEN /hpf 0-5 [facility] MR/BMSSandra 02-11-2025 MR/BMSESPERANZA [facility] 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 Márquez. She reports no prior known personal or family history of aneurysmal disease. She does not smoke. She does have hypertensi (more content not included)... Normal [facility] Abdomen W/WO IV Contraston 0 02-10-2025 Abdomen W/WO IV Contrast [facility] Imaging Services [address] [place] [address] Abdomen W/WO IV Contrast MR#: [id number] Acct: [id number] Name: ALIX PALMER Rep #: [id number] : 1975 F 49 From: Melchor Chairez PCP: Dr. Lesli Márquez, Status: REG CLI Study: Abdomen W/WO IV Contrast Date of Exam: 5 Exam# [id number] Ordering Dr: Lesli Márquez DO PROCEDURE: ABDOMEN [...] Location: [facility] CC: Dr. Lesli Márquez DO Junior Database Administrator: Signed Normal [facility] CT CARDIAC SCORING WO IV CON TRASTon 12-25-2024 CT CARDIAC SCORING WO IV CONTRAST Interpreted By: Slade Galvez, STUDY: CT CARDIAC SCORING WO IV CONTRAST; 12/25/2024 8:13 am INDICATION: Signs/Symptoms:CARDIAC SCREENING INTERMEDIATE CAD RISK ABNORMAL GLUCOSE TOLERANCE TEST. COMPARISON: None. ACCESSION NUMBER(S): [id number] ORDERING CLINICIAN: LESLI MÁRQUEZ TECHNIQUE: Using prospective [...] disease events. According to the [place] [employer] Clinical Expert Consensus [...] Slade Galvez 12/27/2024 8:21 AM Dictation workstation: [id number] [facility] Protein Electro.Ur-Randomon 11-10-2024 M-SPIKE,U Normal [facility] Comment on above: Result Comment: NOT OBSERVED Performed By: #### L 500.4100, L3100.3450, L506.1000, L3600.4000 #### [facility] Laboratory [address] [place], [address] Protein Electroph, Son 11-09 Albumin [Mass/Vol] 3.1 g/dL Normal 2.9-4.4 [facility] Comment on above: Performed By: #### L 500.4100, L3100.3450, L506.1000, L3600.4000 #### [facility] [address] [place], [address] Albumin/Globulin [Mass ratio] 0.7 {ratio} Normal 0.7-1.7 [facility] Comment on above: Performed By: #### L 500.4100, L3100.3450, L506.1000, L3600.4000 #### [facility] [address] [place], [address] ALPHA-1 GLOBUL 0.2 g/dL Normal 0.0-0.4 [facility] Comment on above: Performed By: #### L 500.4100, L3100.3450, L506.1000, L3600.4000 #### [facility] [address] [place], [address] ALPHA-2 GLOBUL 1.0 g/dL Normal 0.4-1.0 [facility] Comment on above: Performed By: #### L 500.4100, L3100.3450, L506.1000, L3600.4000 #### [facility] [address] [place], [address] BETA GLOBULIN 1.3 g/dL Normal 0.7-1.3 [facility] Comment on above: Performed By: #### L 500.4100, L3100.3450, L506.1000, L3600.4000 #### [facility] [address] [place], [address] GAMMA GLOBULIN 1.9 g/dL High 0.4-1.8 [facility] Comment on above: Performed By: #### L 500.4100, L3100.3450, L506.1000, L3600.4000 #### [facility] [address] [place], [address] Globulin (S) [Mass/Vol] 4.4 g/dL High 2.2-3.9 [facility] Comment on above: Performed By: #### L 500.4100, L3100.3450, L506.1000, L3600.4000 #### [facility] [address] [place], [address] INTERPRETATION Comment Normal . [facility] Comment on above: Result Comment: Prot ein electrophoresis scan will follow via computer, mail, or learning coach delivery. Performed By: #### L 500.4100, L3100.3450, L506.1000, L3600.4000 #### [facility] [address] [place], [address] M-SPIKE Not Observed Normal Not Observed [facility] Comment on above: Performed By: #### L 500.4100, L3100.3450, L506.1000, L3600.4000 #### [facility] [address] [place], [address] NOTE: Comment Normal . [facility] Comment on above: Result Comment: The SPE pattern reflects a polyclonal increase in gamma globulin. Hypergammaglobulinemia is found in a wide variety of infectious, non-infectious, and autoimmune disease states. Evidence of monoclonal protein is not apparent. Performed By: #### L 500.4100, L3100.3450, L506.1000, L3600.4000 #### [facility] [address] [place], [address] Protein [Mass/Vol] 7.5 g/dL Normal 6.0-8.5 [facility] Comment on above: Performed By: #### L 500.4100, L3100.3450, L506.1000, L3600.4000 #### [facility] [address] [place], [address] Vitamin D,25 Hydroxyon 11-08 Vitamin D 25-OH 34.7 ng/mL Normal [facility] Comment on above: Result Comment: Deloris min D 25(OH) Status Range Deficiency <20 ng/mL (50nmol/L) Insufficiency 20 - 30 ng/mL (50 - 75 nmol/L) Sufficiency 30 - 100 ng/mL (75 - 250 nmol/L) Toxicity >100 ng/mL (>250 nmol/L) Performed By: #### L 500.4100, L3100.3450, L506.1000, L3600.4000 #### [facility] [address] [place], [address] 83-KJ-Aowehsm DOrdered By: Matt Márquez on 11-06-2024 Vitamin D 25-Hydroxy 34.7 ng/mL [facility] Comment on above: Vitamin D 25(OH) Sta tus Range Deficiency <20 ng/mL (50nmol/L) Insufficiency 20 - 30 ng/mL (50 - 75 nmol/L) Sufficiency 30 - 100 ng/mL (75 - 250 nmol/L) Toxicity >100 ng/mL (>250 nmol/L) Addendum DocumentOrdered By: Lesli Márquez on 11-06-2024 Protein Electrophoresis Note Comment . [facility] Comment on above: The SPE pattern refl ects a polyclonal increase in gammaglobulin. Hypergammaglobulinemia is found in a wide varietyof infectious, non-infectious, and autoimmune diseasestates. Evidence of monoclonal protein is not apparent. Albumin Elph (U) [Mass fract ion]Ordered By: Lesli Márquez on 11-06-2024 Urine Albumin 19.0 % . [facility] Albumin Elph [Mass/Vol]Order ed By: Lesli Márquez on 11-06-2024 Albumin [Mass/Vol] 3.1 g/dL 2.9-4.4 [facility] Albumin/Globulin Elph [Mass ratio]Ordered By: Lesli Márquez on 11-06-2024 Albumin/Globulin (PEP) 0.7 0.7-1.7 [facility] Alpha 1 globulin Elph (U) [M ass fraction]Ordered By: Lesli Márquez on 11-06-2024 Urine Qusud-8-Wktuhlex 4.1 % . [facility] Alpha 2 globulin Elph (24H U ) [Mass fraction]Ordered By: Lesli Márquez on 11-06-2024 Urine Cdumw-7-Uxitrmidk 22.7 % . [facility] Rsizb-1-aketxybu measurement by protein electrophoresisOrdered By: Lesli Márquez on 11-06-2024 Cdugj-1-Brcyxrynf 0.2 g/dL 0.0-0.4 [facility] Ccmar-9-jdboeolm measurement by protein electrophoresisOrdered By: Lesli Márquez on 11-06-2024 Fvkuj-9-Xahwfbakg 1.0 g/dL 0.4-1.0 [facility] Beta globulin Elph (24H U) [ Mass fraction]Ordered By: Lesli Márquez on 11-06-2024 Urine Beta Globulin 26.4 % . [facility] globulin Elph [Mass/Vol ]Ordered By: Lesli Márquez on 11-06-2024 Beta Globulins 1.3 g/dL 0.7-1.3 [facility] Gamma globulin Elph (24H U) [Mass fraction]Ordered By: Lesli Márquez on 11-06-2024 Urine Gamma Globulin 27.8 % . [facility] Gamma globulin measurement b y protein electrophoresisOrdered By: Lesli Márquez on 11-06-2024 Gamma Globulins 1.9 g/dL High 0.4-1.8 [facility] Globulin (S) [Mass/Vol]Order ed By: Lesli Márquez on 11-06-2024 Globulin (PEP) 4.4 g/dL High 2.2-3.9 [facility] High density lipoprotein (HD L) measurementOrdered By: Lesli Márquez on 11-06-2024 Cholesterol in HDL [Mass/Vol] 54 mg/dL >40 [facility] Comment on above: The drugs N-Acetylcy steine and Metamizole may falsely depress this assay. Reference Range HDL <40 mg/dL Low HDL Cholesterol HDL >or= 60 mg/dL High HDL Cholesterol Lipid Profileon 11-06-2024 Cholesterol [Mass/Vol] 207 mg/dL High 200 [facility] Comment on above: Result Comment: <200 mg/dL Desirable 200-240 mg/dL Borderline >240 mg/dL High Risk Performed By: #### L 500.4100, L3100.3450, L506.1000, L3600.4000 #### [facility] [address] [place], [address] Cholesterol in HDL [Mass/Vol] 54 mg/dL Normal [facility] Comment on above: Result Comment: The drugs N-Acetylcysteine and Metamizole may falsely depress this assay. Reference Range HDL <40 mg/dL Low HDL Cholesterol HDL >or= 60 mg/dL High HDL Cholesterol Performed By: #### L 500.4100, L3100.3450, L506.1000, L3600.4000 #### [facility] [address] [place], [address] Cholesterol in LDL [Mass/Vol] 119 mg/dL Normal 0-130 [facility] Comment on above: Performed By: #### L 500.4100, L3100.3450, L506.1000, L3600.4000 #### [facility] [address] [place], [address] Cholesterol in VLDL [Mass/Vol] 34 mg/dL Normal 5-40 [facility] Comment on above: Performed By: #### L 500.4100, L3100.3450, L506.1000, L3600.4000 #### [facility] [address] [place], [address] Triglyceride [Mass/Vol] 171 mg/dL Normal [facility] Comment on above: Result Comment: The drugs N-Acetylcysteine and Metamizole may falsely depress this assay. Serum Triglycerides Reference Interval Normal <150 mg/dL Borderline high 150 - 199 mg/dL High 200 - 499 mg/dL Very High > or = 500 mg/dL Performed By: #### L 500.4100, L3100.3450, L506.1000, L3600.4000 #### [facility] [address] [place], [address] Low density lipoprotein (LDL ) cholesterol measurementOrdered By: Lesli Márquez on 11-06-2024 Cholesterol in LDL [Mass/Vol] 119 mg/dL 0-130 [facility] Protein Fractions Elph [Inte rp]Ordered By: Lesli Márquez on 11-06-2024 Protein Electrophoresis Interpret Comment . [facility] Comment on above: Protein electrophore sis scan will follow via computer,mail, or learning coach delivery. Protein.monoclonal Elph (U) [Mass fraction]Ordered By: Lesli Márquez on 11-06-2024 Ur Protein Electrophoresis M-Terrance See comment [facility] Comment on above: NOT OBSERVED Protein.monoclonal Elph [Mas s/Vol]Ordered By: Lesli Márquez on 11-06-2024 Protein Electrophoresis M-Terrance Not Observed g/dL Not Observed [facility] Serum or plasma cholesterol measurement (mass/volume)Ordered By: Lesli Márquez on 11-06-2024 Cholesterol [Mass/Vol] 207 mg/dL High <200 [facility] Comment on above: <200 mg/dL Desirable 200-240 mg/dL Borderline >240 mg/dL High Risk Serum or plasma protein abbey urement (mass/volume)Ordered By: Lesli Márquez on 11-06-2024 Protein [Mass/Vol] 7.5 g/dL 6.0-8.5 [facility] Triglycerides measurementOrd ered By: Lesli Márquez on 11-06-2024 Triglyceride [Mass/Vol] 171 mg/dL <199 [facility] Comment on above: The drugs N-Acetylcy steine and Metamizole may falsely depress this assay.Serum Triglycerides Reference Interval Normal <150 mg/dL Borderline high 150 - 199 mg/dL High 200 - 499 mg/dL Very High > or = 500 mg/dL Urine protein measurement (m ass/volume)Ordered By: Lesli Márquez on 11-06-2024 Protein (U) [Mass/Vol] 8.7 mg/dL Not Estab. 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 IOM ([place] of [employer]). 2010. Dietary reference intakes for calcium and D. [place]: The National Academies Press.2. Deshaun MF, Anshu FRANCISCO, Rodolfo PATEL, et al. Evaluation, treatment, and prevention of vitamin D deficiency: an Endocrine Society clinical practice guideline. JCEM. 2010; 96(7):1911-30. PATIENT WAS FASTINGP ERFORMED BY: [employer] [id number] [employer]sin [place] [id number] CBC W/AUTO DIFF WBC (12720)O rdered By: Llama Farmer on 03-13-2023 Basophils (Bld) [#/Vol] 0.1 10*3/uL Normal 0.0-0.2 [facility]; [facility] Work Phone: Comment on above: PATIENT WAS FASTINGP ERFORMED BY: [employer] Czybqu8925 [employer] [employer] Exchangeblin [place] [id number] Basophils/100 WBC (Bld) 1 % Normal [facility]; [facility] Work Phone: Comment on above: PATIENT WAS FASTINGP ERFORMED BY: [employer] X6370 [employer] Exchangeblin [place] [id number] Eosinophils (Bld) [#/Vol] 0.2 10*3/uL Normal 0.0-0.4 [facility]; [facility] Work Phone: Comment on above: PATIENT WAS FASTINGP ERFORMED BY: JAYLIN [facility] Ecdacf7393 [address] RoadDublin [place] [id number] Eosinophils/100 WBC (Bld) 3 % Normal [facility]; [facility] Work Phone: Comment on above: PATIENT WAS FASTINGP ERFORMED BY: CB [facility] Tewbnt6038 [address] Roadblin [place] [id number] Erythrocyte distribution width (RBC) [Ratio] 12.4 % Normal 11.7-15.4 [facility]; [facility] Work Phone: Comment on above: PATIENT WAS FASTINGP ERFORMED BY: CB [facility] [id number] [address] RoadDublin [place] [id number] Hematocrit (Bld) [Volume fraction] 39.4 % Normal 34.0-46.6 [facility]; [facility] Work Phone: Comment on above: PATIENT WAS FASTINGP ERFORMED BY: [facility] Biugay2768 [address] RoadDublin [place] [id number] Hemoglobin (Bld) [Mass/Vol] 13.6 g/dL Normal 11.1-15.9 [facility]; [facility] Work Phone: Comment on above: PATIENT WAS FASTINGP ERFORMED BY: CB [facility] Wvklcb7799 [address]Dublin [place] [id number] Immature granulocytes (Bld) [#/Vol] 0.0 10*3/uL Normal 0.0-0.1 [facility]; [facility] Work Phone: Comment on above: PATIENT WAS FASTINGP ERFORMED BY: CB [facility] Caxurr3678 [address]Dublin [place] [id number] Immature granulocytes/100 WBC (Bld) 0 % Normal [facility]; [facility] Work Phone: Comment on above: PATIENT WAS FASTINGP ERFORMED BY: CB [facility] Nzoujy3493 [address]Dublin [place] [id number] Lymphocytes (Bld) [#/Vol] 2.6 10*3/uL Normal 0.7-3.1 [facility]; [facility] Work Phone: Comment on above: PATIENT WAS FASTINGP ERFORMED BY: JAYLIN Labbenita Del Castillo6[address]Dublin [place] [id number] Lymphocytes/100 WBC (Bld) 34 % Normal [facility]; [facility] Work Phone: Comment on above: PATIENT WAS FASTINGP ERFORMED BY: JAYLIN [facility] Gfxyqr5010 [address]Dublin [place] [id number] MCH (RBC) [Entitic mass] 30.6 pg Normal 26.6-33.0 [facility]; [facility] Work Phone: Comment on above: PATIENT WAS FASTINGP ERFORMED BY: JAYLIN Labcoy[facility] PaulinoRlaujx3058 [address]Dublin [place] [id number] MCHC (RBC) [Mass/Vol] 34.5 g/dL Normal 31.5-35.7 [facility]; [facility] Work Phone: Comment on above: PATIENT WAS FASTINGP ERFORMED BY: JAYLIN Labcoyue PaulinoRnjhml7468 [address] RoadDublin [place] [id number] MCV (RBC) [Entitic vol] 89 fL Normal 79-97 [facility]; [facility] Work Phone: Comment on above: PATIENT WAS FASTINGP ERFORMED BY: JAYLIN [facility] Ztyhhs2271 [address]Dublin [place] [id number] Monocytes (Bld) [#/Vol] 0.5 10*3/uL Normal 0.1-0.9 [facility]; [facility] Work Phone: Comment on above: PATIENT WAS FASTINGP ERFORMED BY: JAYLIN [facility] Xhhtlg8048 [address]Dublin [place] [id number] Monocytes/100 WBC (Bld) 7 % Normal [facility]; [facility] Work Phone: Comment on above: PATIENT WAS FASTINGP ERFORMED BY: JAYLIN [facility] Vbncey2296 [address]Dublin [place] [id number] Neutrophils (Bld) [#/Vol] 4.2 10*3/uL Normal 1.4-7.0 [facility]; [facility] Work Phone: Comment on above: PATIENT WAS FASTINGP ERFORMED BY: JAYLIN Labcoyue Del CastilloQcklvn3153 [address] RoadDublin [place] [id number] Neutrophils/100 WBC (Bld) 55 % Normal [facility]; [facility] Work Phone: Comment on above: PATIENT WAS FASTINGP ERFORMED BY: CB [facility] Edrlov3494 [address]Dublin [place] [id number] Platelets (Bld) [#/Vol] 340 10*3/uL Normal 150-450 [facility]; [facility] Work Phone: Comment on above: PATIENT WAS FASTINGP ERFORMED BY: JAYLIN [facility] Xpoeof3170 [address]Dublin [place] [id number] RBC (Bld) [#/Vol] 4.45 10*6/uL Normal 3.77-5.28 [facility]; [facility] Work Phone: Comment on above: PATIENT WAS FASTINGP ERFORMED BY: JAYLIN [facility] Gojinq6077 [address] RoadDublin [place] [id number] WBC (Bld) [#/Vol] 7.6 10*3/uL Normal 3.4-10.8 [facility]; [facility] Work Phone: Comment on above: PATIENT WAS FASTINGP ERFORMED BY: JAYLIN [facility] Cvcqso8436 [address] RoadDublin [place] [id number] LIPID PANEL ([id number])Ordered B y: Llama Farmer on 03-13-2023 Cholesterol [Mass/Vol] 220 mg/dL Abnormal 100-199 [facility]; [facility] Work Phone: Comment on above: PATIENT WAS FASTINGP ERFORMED BY: JAYLIN [facility] Neqbay6459 [address]Dublin [place] [id number] Cholesterol in HDL [Mass/Vol] 44 mg/dL Normal [facility]; [facility] Work Phone: Comment on above: PATIENT WAS FASTINGP ERFORMED BY: JAYLIN [facility] Cjxgro3338 [address]Dublin [place] [id number] Triglyceride [Mass/Vol] 123 mg/dL Normal 0-149 [facility]; [facility] Work Phone: Comment on above: PATIENT WAS FASTINGP ERFORMED BY: JAYLIN [facility] Adgjws4333 [address]Dublin [place] [id number] LIPID PANEL (85565) 22 mg/dL Normal 5-40 Compr [facility]; [facility] Work Phone: Comment on above: PATIENT WAS FASTINGP ERFORMED BY: JAYLIN [facility] Qdhwrx7038 [address]Dublin [place] [id number] LIPID PANEL (89938) 154 mg/dL Abnormal 0-99 [facility]pr [facility]; [facility] Work Phone: Comment on above: PATIENT WAS FASTINGP ERFORMED BY: JAYLIN [facility] Psdbrr2416 [address] RoadNovant Health Mint [facility] Medical Centerin [place] [id number] LIPID PANEL (83272) 3.5 {ratio} Abnormal 0.0-3.2 Comp [facility]; [facility] Work Phone: Comment on above: LDL/HDL Ratio Men Wo men 1/2 Avg.Risk 1.0 1.5 Avg.Risk 3.6 3.2 2X Avg.Risk 6.2 5.0 3X Avg.Risk 8.0 6.1 PATIENT WAS FASTINGP ERFORMED BY: JAYLIN [facility] Wqzjmk[address] [facility]in [place] [id number] METABOLIC PANEL, COMPREHENSI VE (10324)Ordered By: Llama Farmer on 03-13-2023 Albumin [Mass/Vol] 4.1 g/dL Normal 3.8-4.8 [facility]; [facility] Work Phone: Comment on above: PATIENT WAS FASTINGP ERFORMED BY: JAYLIN [facility] Vkuydn9365 [address]Dublin [place] [id number] Albumin/Globulin [Mass ratio] 1.1 {ratio} Abnormal 1.2-2.2 [facility]; [facility] Work Phone: Comment on above: PATIENT WAS FASTINGP ERFORMED BY: [facility] Fitbcu0852 [address]Dublin [place] [id number] ALP [Catalytic activity/Vol] 108 U/L Normal 44-121 [facility]; [facility] Work Phone: Comment on above: PATIENT WAS FASTINGP ERFORMED BY: CB [facility] Hhoymu9758 [address]Dublin [place] [id number] ALT [Catalytic activity/Vol] 17 U/L Normal 0-32 [facility]; [facility] Medicine Work Phone: Comment on above: PATIENT WAS FASTINGP ERFORMED BY: CB [facility] Thnxmz8108 [address] RoadDublin [place] [id number] AST [Catalytic activity/Vol] 19 U/L Normal 0-40 [facility]; [facility] Work Phone: Comment on above: PATIENT WAS FASTINGP ERFORMED BY: [facility] Lfozvr7370 [address] RoadDublin [place] [id number] Bilirubin [Mass/Vol] 0.5 mg/dL Normal 0.0-1.2 Comp rehensive [facility] Medicine; [facility] Work Phone: Comment on above: PATIENT WAS FASTINGP ERFORMED BY: [facility] Bfnvot8988 [address] RoadDublin [place] [id number] Calcium [Mass/Vol] 9.5 mg/dL Normal 8.7-10.2 [facility]; [facility] Work Phone: Comment on above: PATIENT WAS FASTINGP ERFORMED BY: [facility] Trrwlm3561 [address] RoadDublin [place] [id number] Chloride [Moles/Vol] 102 mmol/L Normal 96-106 Comp rehensive [facility] Medicine; [facility] Work Phone: Comment on above: PATIENT WAS FASTINGP ERFORMED BY: CB [facility] Oqiovw7376 [address] RoadDublin [place] [id number] CO2 [Moles/Vol] 21 mmol/L Normal 20-29 [facility]; [facility] Work Phone: Comment on above: PATIENT WAS FASTINGP ERFORMED BY: JAYLIN [facility] Xgeewz[address] [facility] [id number] Creatinine [Mass/Vol] 0.64 mg/dL Normal 0.57-1.00 [facility] prehensive Internal Medicine; [facility] Work Phone: Comment on above: PATIENT WAS FASTINGP ERFORMED BY: JAYLIN Labcoyue PaulinoJesewl[address] [facility] [id number] GFR/1.73 sq M.predicted among non-blacks MDRD (S/P/Bld) [Vol rate/Area] 111 mL/min/{1.73_m2} Normal Comprehensi ve Internal Medicine; [facility] Work Phone: Comment on above: PATIENT WAS FASTINGP ERFORMED BY: JAYLIN Labbenita PaulinoErkdro47[address] [facility] [id number] Globulin (S) [Mass/Vol] 3.9 g/dL Normal 1.5-4.5 [facility]; [facility] Work Phone: Comment on above: PATIENT WAS FASTINGP ERFORMED BY: JAYLIN [facility] Zcejzl[address] [facility] HospitalDuin [place] [id number] Glucose [Mass/Vol] 93 mg/dL Normal 70-99 [facility]; [facility] Work Phone: Comment on above: PATIENT WAS FASTINGP ERFORMED BY: JAYLIN [facility] Naatbj[address] [facility] [id number] Potassium [Moles/Vol] 4.4 mmol/L Normal 3.5-5.2 [facility] prehensive Internal Medicine; [facility] Work Phone: Comment on above: PATIENT WAS FASTINGP ERFORMED BY: JAYLIN [facility] Vqkhei[address] [facility] [id number] Protein [Mass/Vol] 8.0 g/dL Normal 6.0-8.5 [facility]; [facility] Work Phone: Comment on above: PATIENT WAS FASTINGP ERFORMED BY: JAYLIN [facility] Rsrizu4997 [address] RoadDublin [place] [id number] Sodium [Moles/Vol] 137 mmol/L Normal 134-144 [facility] Internal Medicine; [facility] Work Phone: Comment on above: PATIENT WAS FASTINGP ERFORMED BY: CB [facility] Lxusif7778 [address] RoadDublin [place] [id number] Urea nitrogen [Mass/Vol] 16 mg/dL Normal 6-24 [facility]; [facility] Work Phone: Comment on above: PATIENT WAS FASTINGP ERFORMED BY: CB [facility] Amtnmo3963 [address] RoadDublin [place] [id number] Urea nitrogen/Creatinine [Mass ratio] 25 mg/mg Abnormal 9- [facility]; [facility] Work Phone: Comment on above: PATIENT WAS FASTINGP ERFORMED BY: [facility] Eimhxq2659 [address] RoadDublin [place] [id number] MICROALBUMINOrdered By: Eyegroove em [employer] Measurer on 03-13-2023 Albumin DL <= 20 mg/L (U) [Mass/Vol] mg/dL Normal [facility]; [facility] Work Phone: Comment on above: PATIENT WAS FASTINGP ERFORMED BY: [facility] Kuczad0046 [address] RoadDublin [place] [id number] Albumin/Creatinine (U) [Mass ratio] <3 Normal 0-29 [facility]; [facility] Work Phone: Comment on above: Normal: 0 - 29 Moder ately increased: 30 - 300 Severely increased: >300 PATIENT WAS FASTINGP ERFORMED BY: [facility] Kttnxt7288 [address] RoadDublin [place] [id number] Creatinine (U) [Mass/Vol] 101.0 mg/dL Normal [facility]; [facility] Work Phone: Comment on above: PATIENT WAS FASTINGP ERFORMED BY: [facility] Seqvwm5011 [address] RoadDublin [place] [id number] TSH ([id number])Ordered By: Armindae m [employer] Measurer on 03-13-2023 TSH Qn 2.380 {uIU/mL} Normal 0.450-4.50 0 [facility]; [facility] Work Phone: Comment on above: PATIENT WAS FASTINGP ERFORMED BY: JAYLIN Juan Yxcycf7587 [address] RoadDublin [place] [id number] URINALYSIS, W/ MICRO ([id number]) Ordered By: Llama Farmer on 03-13-2023 Appearance (U) Clear Normal Comprehens [place] [facility]; [facility] Work Phone: Comment on above: PATIENT WAS FASTINGP ERFORMED BY: JAYLIN Yazanbenita PaulinoGmfsgw0993 [address] RoadDublin [place] [id number] Bilirubin Ql (U) Negative Normal Comprehe nsive Internal Medicine; [facility] Work Phone: Comment on above: PATIENT WAS FASTINGP ERFORMED BY: JAYLIN Paulinolin6370 [address] RoadDublin [place] [id number] Color (U) Yellow Normal [facility]; [facility] Work Phone: Comment on above: PATIENT WAS FASTINGP ERFORMED BY: JAYLIN Paulinolin6370 [address] RoadDublin [place] [id number] Glucose Ql (U) Negative Normal Comprehens [place] [facility]; [facility] Work Phone: Comment on above: PATIENT WAS FASTINGP ERFORMED BY: JAYLIN Paulinolin6370 [address] RoadDublin [place] [id number] Hemoglobin Ql (U) Negative Normal Compreh ensive Internal Medicine; [facility] Work Phone: Comment on above: PATIENT WAS FASTINGP ERFORMED BY: JAYLIN Yazanbenita PaulinoOjbpgv4885 [address] RoadDublin [place] [id number] Ketones Ql (U) Negative Normal Comprehens [place] [facility]; [facility] Work Phone: Comment on above: PATIENT WAS FASTINGP ERFORMED BY: JAYLIN Yazanbenita PaulinoYsrnqp4384 [address] RoadDublin [place] [id number] Leukocyte esterase Test strip Ql (U) Negative Normal [facility]; [facility] Work Phone: Comment on above: PATIENT WAS FASTINGP ERFORMED BY: JAYLIN Paulinolin6370 [address] RoadDublin [place] [id number] Microscopic observation LM Nom (Urine sed) MICRON Normal [facility]; [facility] Work Phone: Comment on above: Microscopic follows if indicated. PATIENT WAS FASTINGP ERFORMED BY: JAYLIN Labtristarp Uzxjxh6711 [address] RoadDublin [place] [id number] Microscopic observation LM Nom (Urine sed) See below: Normal [facility]; [facility] Work Phone: Comment on above: Microscopic was nazanin cated and was performed. PATIENT WAS FASTINGP ERFORMED BY: JAYLIN Labtristarp Jjnltd0882 [address] RoadDublin [place] [id number] Nitrite Ql (U) Negative Normal Comprehens [place] [facility]; [facility] Work Phone: Comment on above: PATIENT WAS FASTINGP ERFORMED BY: JAYLIN Labbenita PaulinoIhopah3546 [address] RoadDuin [place] [id number] pH (U) 5.5 [pH] Normal 5.0-7.5 [facility]; [facility] Work Phone: Comment on above: PATIENT WAS FASTINGP ERFORMED BY: JAYLIN Labtristayue Myaqjc0478 [address] RoadDublin [place] [id number] Protein Ql (U) Negative Normal Comprehens [place] [facility]; [facility] Work Phone: Comment on above: PATIENT WAS FASTINGP ERFORMED BY: JAYLIN Labbenita PaulinoFksxkk34[address] [facility]in [place] [id number] Specific gravity (U) [Rel density] 1.021 1 Normal 1.005-1.03 0 [facility]; [facility] Work Phone: Comment on above: PATIENT WAS FASTINGP ERFORMED BY: JAYLIN [facility] Vqzmbd[address] [facility] HospitalDublin [place] [id number] Urobilinogen (U) [Mass/Vol] 0.2 mg/dL Normal 0.2-1.0 [facility]; [facility] Work Phone: Comment on above: PATIENT WAS FASTINGP ERFORMED BY: JAYLIN [facility] Xupqfj8785 [address] Roadblin [place] [id number] Absolute lymphocyte counton 08-14-2022 Lymphocytes Auto (Unsp spec) [#/Vol] 2.79 10*3/uL 0.83-4.51 [facility] Work Phone: Basophil percentageon 2021 Basophil percentage 0-5 SEEN /hpf 0-5 [facility] Work Phone: Basophils/100 WBC (Bld) 0.5 % 0-1 [facility] Work Phone: Chloride [Moles/Vol] 108 mmol/L 98-107 [facility] Work [facility]: Eosinophils/100 WBC (Bld) 1.3 % 0-5 [facility] Work Phone: Glucose [Mass/Vol] 115 mg/dL 74-106 [facility] Work Phone: Comment on above: Fasting Glucose resu lt from 100 to 125 mg/dL suggests IMPAIRED HOMEOSTASIS per A.D.A. criteria. Neutrophils (Bld) [#/Vol] 6.1 10*3/uL 2.0-7.7 [facility] Work Phone: Neutrophils/100 WBC (Bld) 61.8 % 47-70 [facility] Work Phone: Potassium [Moles/Vol] 3.4 mmol/L 3.5-5.1 [facility] Work Phone: Sodium [Moles/Vol] 139 mmol/L 136-145 [facility] Work Phone: WBC (Bld) [#/Vol] 9.9 10*3/uL 4.4-11.0 [facility] Work Phone: Bilirubin Test strip Ql (U)o n 08-14-2022 Bilirubin Ql (U) Negative Negative [facility] Work Phone: Blood erythrocytes count (nu mber/volume)on 08-14-2022 RBC (Bld) [#/Vol] 4.33 10*6/uL 4.2-5.4 [facility] Work Phone: Blood hemoglobin measurement (mass/volume)on 08-14-2022 Hemoglobin (Bld) [Mass/Vol] 13.3 g/dL 12.0-15.0 [facility] Work Phone: Blood lymphocytes/100 leukoc yteson 08-14-2022 Lymphocytes/100 WBC (Bld) 28.1 % 19-41 [facility] Work Phone: Blood monocytes/100 leukocyt eson 08-14-2022 Monocytes/100 WBC (Bld) 8.1 % 0-10 [facility] Work Phone: Blood platelet mean volumeon 08-14-2022 Platelet mean volume (Bld) [Entitic vol] 11.1 fL 6.2-12.0 [facility] Work Phone: Determination of erythrocyte mean corpuscular volume (MCV)on 08-14-2022 MCV (RBC) [Entitic vol] 90.8 fL 81-99 [facility] Work Phone: Hematocrit Auto (Bld) [Volum e fraction]on 08-14-2022 Hematocrit (Bld) [Volume fraction] 39.3 % 37-47 [facility] Work Phone: Ketones Test strip Ql (U)on 08-14-2022 Ketones Ql (U) Negative Negative [facility] Work Phone: Laboratory - Chemistry and C hemistry - challengeon 08-14-2022 CO2 [Moles/Vol] 25.0 mmol/L 21.0-32.0 [facility] Work Phone: Urea nitrogen/Creatinine [Mass ratio] 18.0 mg/mg 10-20 [facility] Work Phone: Laboratory - Hematology and Cell countson 08-14-2022 Erythrocyte distribution width (RBC) [Entitic vol] 41.2 fL 35.1-43.9 [facility] Work Phone: Erythrocyte distribution width (RBC) [Ratio] 12.4 % 11.6-14.6 [facility] Work Phone: Immature granulocytes/100 WBC (Bld) 0.200 % 0.0-0.9 [facility] Work Phone: Comment on above: IG% - Immature Granu locytes (promyelocytes, myelocytes and metamyelocytes) > 1% indicates that a LEFT SHIFT is Present. MCH (RBC) [Entitic mass] 30.7 pg 27.0-32.0 [facility] Work Phone: Nucleated RBC/100 WBC (Bld) [Ratio] 0 % 0-5 [facility] Work Phone: MCHC Auto (RBC) [Mass/Vol]on 08-14-2022 MCHC (RBC) [Mass/Vol] 33.8 g/dL 32-36 [facility] Work Phone: Mucus LM Ql (Urine sed)on Mucus Ql (Urine sed) 0 SEEN /hpf [facility] Work Phone: Nitrite Test strip Ql (U)on 08-14-2022 Nitrite Ql (U) Negative Negative [facility] Work Phone: No Panel Informationon 08-14 Estimated Creatinine Clearance Calc 104.25 ml/min [facility] Work Phone: Estimated GFR (MDRD) Amer 136 mL/min >60 [facility] Work Phone: Comment on above: GFR Calc Estimated GFR (MDRD) Non-Af Amer 113 mL/min >60 [facility] Work Phone: Comment on above: Non- GFR Calc Platelets bldon 08-14-2022 Platelets (Bld) [#/Vol] 309 10*3/uL 150-450 [facility] Work Phone: Protein Test strip Ql (U)on 08-14-2022 Protein Ql (U) Negative Negative [facility] Work Phone: Serum or plasma calcium abbey urement (mass/volume)on 08-14-2022 Calcium [Mass/Vol] 9.3 mg/dL 8.5-10.1 [facility] Work Phone: Serum or plasma creatinine m easurement (mass/volume)on 08-14-2022 Creatinine [Mass/Vol] 0.61 mg/dL 0.55-1.02 [facility] Work Phone: Comment on above: The validity of the calculated GFR & GFRAA in patients over 70 years has not been determined. Clinical correlation is essential. Serum or plasma urea nitroge n measurement (mass/volume)on 08-14-2022 Urea nitrogen [Mass/Vol] 11 mg/dL 7-18 [facility] Work Phone: Squamous epithelial cells de tection in urine sediment by light microscopyon 08-14-2022 Epithelial cells.squamous LM Ql (Urine sed) 0-5 SEEN /hpf 5-10 [facility] Work Phone: Thin prep Papanicolaou smear with manual screeningon 08-14-2022 Thin prep Papanicolaou smear with manual screening 6 5-15 [facility] Work Phone: Urine blood detectionon 07-21 RBC Ql (U) Negative Negative [facility] Work Phone: RBC Ql (U) 0 SEEN /hpf 0-5 [facility] Work Phone: Urine clarityon 08-14-2022 Clarity (U) Sl. Cloudy Clear [facility] Work Phone: Urine color determinationon 08-14-2022 Color (U) Yellow Yellow [facility] Work Phone: Urine glucose detectionon Glucose Ql (U) Normal mg/dl Normal [facility] Work Phone: Urine leukocyte esterase det ection by dipstickon 08-14-2022 Leukocyte esterase Test strip Ql (U) 25 /ul Negative [facility] Work Phone: Urine pHon 08-14-2022 pH (U) 6.0 [pH] 5.0 - 8.0 [facility] Work Phone: Urine sediment bacteria coun t by microscopy (number/high power field)on 08-14-2022 Bacteria LM.HPF (Urine sed) [#/Area] 1 /[HPF] None Seen [facility] Work Phone: Urine specific gravity measu rementon 08-14-2022 Specific gravity (U) [Rel density] 1.010 1.002-1.03 0 [facility] Work Phone: Urobilinogen Auto test strip Ql (U)on 08-14-2022 Urobilinogen Ql (U) Normal mg/dl Normal [facility] Work Phone: CBC W/AUTO DIFF WBC ([id number])O rdered By: Llama Farmer on 03-28-2022 Basophils (Bld) [#/Vol] 0.1 10*3/uL Normal 0.0-0.2 [facility]; [facility] Work Phone: Comment on above: PATIENT NOT FASTINGP ERFORMED BY: [employer]ve X[address] [facility]ell[facility] Global Healthblin [place] [id number] Basophils/100 WBC (Bld) 1 % Normal C omprehensive Internal Medicine; [facility] Work Phone: Comment on above: PATIENT NOT FASTINGP ERFORMED BY: iSECUREtrac LabLonestar Heart[address] TraianaDublin [place] [id number] Eosinophils (Bld) [#/Vol] 0.3 10*3/uL Normal 0.0-0.4 [facility]; [facility] Work Phone: Comment on above: PATIENT NOT FASTINGP ERFORMED BY: iSECUREtrac LabGamePlan Technologiesrp Duxqjg9521 [address] RoadDublin [place] [id number] Eosinophils/100 WBC (Bld) 3 % Normal [facility]; [facility] Work Phone: Comment on above: PATIENT NOT FASTINGP ERFORMED BY: iSECUREtrac LabWebVisible Uzjepx36[address] TraianaDublin [place] [id number] Erythrocyte distribution width (RBC) [Ratio] 12.5 % Normal 11.7-15.4 [facility]; [facility] Work Phone: Comment on above: PATIENT NOT FASTINGP ERFORMED BY: JAYLIN [facility] Clqyxq2691 [address] RoadDublin [place] [id number] Hematocrit (Bld) [Volume fraction] 40.6 % Normal 34.0-46.6 [facility]; [facility] Work Phone: Comment on above: PATIENT NOT FASTINGP ERFORMED BY: CB [facility] Ayhgdd7813 [address] RoadDublin [place] [id number] Hemoglobin (Bld) [Mass/Vol] 13.7 g/dL Normal 11.1-15.9 [facility]; [facility] Work Phone: Comment on above: PATIENT NOT FASTINGP ERFORMED BY: CB [facility] Timgkw5292 [address] RoadDublin [place] [id number] Immature granulocytes (Bld) [#/Vol] 0.0 10*3/uL Normal 0.0-0.1 [facility]; [facility] Work Phone: Comment on above: PATIENT NOT FASTINGP ERFORMED BY: CB [facility] Gtzklm2196 [address] RoadDublin [place] [id number] Immature granulocytes/100 WBC (Bld) 0 % Normal [facility]; [facility] Work Phone: Comment on above: PATIENT NOT FASTINGP ERFORMED BY: CB [facility] Fjasny3115 [address] RoadDublin [place] [id number] Lymphocytes (Bld) [#/Vol] 2.9 10*3/uL Normal 0.7-3.1 [facility]; [facility] Work Phone: Comment on above: PATIENT NOT FASTINGP ERFORMED BY: CB [facility] Ctpeyo4306 [address] RoadDublin [place] [id number] Lymphocytes/100 WBC (Bld) 34 % Normal [facility]; [facility] Work Phone: Comment on above: PATIENT NOT FASTINGP ERFORMED BY: CB [facility] Phfkuc0937 [address] RoadDublin [place] [id number] MCH (RBC) [Entitic mass] 30.6 pg Normal 26.6-33.0 [facility]; [facility] Work Phone: Comment on above: PATIENT NOT FASTINGP ERFORMED BY: JAYLIN Labbenita Del Castillo6370 [address] RoadDublin [place] [id number] MCHC (RBC) [Mass/Vol] 33.7 g/dL Normal 31.5-35.7 [facility] prehensive Internal Medicine; [facility] Work Phone: Comment on above: PATIENT NOT FASTINGP ERFORMED BY: CB [facility] Iejblu5556 [address] RoadDublin [place] [id number] MCV (RBC) [Entitic vol] 91 fL Normal 79-97 C omprehensive Internal Medicine; [facility] Work Phone: Comment on above: PATIENT NOT FASTINGP ERFORMED BY: JAYLIN Labcoyue PaulinoBmidet7380 [address] RoadDublin [place] [id number] Monocytes (Bld) [#/Vol] 0.7 10*3/uL Normal 0.1-0.9 [facility]; [facility] Work Phone: Comment on above: PATIENT NOT FASTINGP ERFORMED BY: CB [facility] Xvzsur7732 [address] RoadDublin [place] [id number] Monocytes/100 WBC (Bld) 8 % Normal [facility] hospitalsrehens[facility]; [facility] Work Phone: Comment on above: PATIENT NOT FASTINGP ERFORMED BY: CB [facility] Clbqzm7572 [address] RoadDublin [place] [id number] Neutrophils (Bld) [#/Vol] 4.7 10*3/uL Normal 1.4-7.0 [facility]; [facility] Work Phone: Comment on above: PATIENT NOT FASTINGP ERFORMED BY: CB [facility] Vjuuly9032 [address] RoadDublin [place] [id number] Neutrophils/100 WBC (Bld) 54 % Normal [facility]; [facility] Work Phone: Comment on above: PATIENT NOT FASTINGP ERFORMED BY: CB [facility] Ooresv8676 [address] RoadDublin [place] [id number] Platelets (Bld) [#/Vol] 332 10*3/uL Normal 150-450 [facility]; [facility] Work Phone: Comment on above: PATIENT NOT FASTINGP ERFORMED BY: [facility]6370 [facility] [id number] RBC (Bld) [#/Vol] 4.48 10*6/uL Normal 3.77-5.28 [facility]; [facility] Work Phone: Comment on above: PATIENT NOT FASTINGP ERFORMED BY: [facility]6370 [facility] [id number] WBC (Bld) [#/Vol] 8.6 10*3/uL Normal 3.4-10.8 [facility]; [facility] Work Phone: Comment on above: PATIENT NOT FASTINGP ERFORMED BY: [facility]Mar[facility]6370 [facility] [id number] Absolute lymphocyte counton 03-06-2022 Lymphocytes Auto (Unsp spec) [#/Vol] 2.67 10*3/uL 0.83-4.51 [facility] Work Phone: Basophil percentageon 2021 Basophils/100 WBC (Bld) 0.4 % 0-1 [facility] Work Phone: Bilirubin [Mass/Vol] 0.50 mg/dL 0.20-1.00 [facility] Work Phone: Comment on above: For patients on eltr ombopag therapy, use of Dimension [place] TBIL is not recommended. Chloride [Moles/Vol] 105 mmol/L 98-107 [facility] Work Phone: Cholesterol [Mass/Vol] 213 mg/dL <200 [facility] Work Phone: Comment on above: <200 mg/dL Desirable 200-240 mg/dL Borderline >240 mg/dL High Risk Eosinophils/100 WBC (Bld) 0.6 % 0-5 [facility] Work Phone: Glucose [Mass/Vol] 94 mg/dL 74-106 [facility] Work Phone: Neutrophils (Bld) [#/Vol] 12.3 10*3/uL 2.0-7.7 [facility] Work Phone: Neutrophils/100 WBC (Bld) 77.3 % 47-70 [facility] Work Phone: Potassium [Moles/Vol] 4.1 mmol/L 3.5-5.1 [facility] Work Phone: Protein [Mass/Vol] 7.9 g/dL 6.4-8.2 [facility] Work Phone: Sodium [Moles/Vol] 139 mmol/L 136-145 [facility] Work Phone: Triglyceride [Mass/Vol] 118 mg/dL [facility] Work Phone: Comment on above: The drugs N-Acetylcy steine and Metamizole may falsely depress this assay.Serum Triglycerides Reference Interval Normal <150 mg/dL Borderline high 150 - 199 mg/dL High 200 - 499 mg/dL Very High > or = 500 mg/dL WBC (Bld) [#/Vol] 15.9 10*3/uL 4.4-11.0 [facility] Work Phone: Blood erythrocytes count (nu mber/volume)on 03-06-2022 RBC (Bld) [#/Vol] 4.53 10*6/uL 4.2-5.4 [facility] Work Phone: Blood hemoglobin measurement (mass/volume)on 03-06-2022 Hemoglobin (Bld) [Mass/Vol] 13.7 g/dL 12.0-15.0 [facility] Work Phone: Blood lymphocytes/100 leukoc yteson 03-06-2022 Lymphocytes/100 WBC (Bld) 16.8 % 19-41 [facility] Work Phone: Blood monocytes/100 leukocyt eson 05-18-2022 Monocytes/100 WBC (Bld) 4.5 % 0-10 [facility] Work Phone: Blood platelet mean volumeon 03-06-2022 Platelet mean volume (Bld) [Entitic vol] 11.6 fL 6.2-12.0 [facility] Work Phone: Determination of erythrocyte mean corpuscular volume (MCV)on 03-06-2022 MCV (RBC) [Entitic vol] 93.4 fL 81-99 [facility] Work Phone: Hematocrit Auto (Bld) [Volum e fraction]on 03-06-2022 Hematocrit (Bld) [Volume fraction] 42.3 % 37-47 [facility] Work Phone: Laboratory - Chemistry and C hemistry - challengeon 03-06-2022 ALP [Catalytic activity/Vol] 90 U/L 45-117 [facility] Work Phone: ALT [Catalytic activity/Vol] 26 U/L 13-56 [facility] Work Phone: CO2 [Moles/Vol] 25.0 mmol/L 21.0-32.0 [facility] Work Phone: Globulin (S) [Mass/Vol] 4.7 g/dL 2.2-4.2 [facility] Work Phone: Urea nitrogen/Creatinine [Mass ratio] 14.0 mg/mg 10-20 [facility] Work Phone: Laboratory - Hematology and Cell countson 03-06-2022 Erythrocyte distribution width (RBC) [Entitic vol] 43.2 fL 35.1-43.9 [facility] Work Phone: Erythrocyte distribution width (RBC) [Ratio] 12.6 % 11.6-14.6 [facility] Work Phone: Immature granulocytes/100 WBC (Bld) 0.400 % 0.0-0.9 [facility] Work Phone: Comment on above: IG% - Immature Granu locytes (promyelocytes, myelocytes and metamyelocytes) > 1% indicates that a LEFT SHIFT is Present. MCH (RBC) [Entitic mass] 30.2 pg 27.0-32.0 [facility] Work Phone: Nucleated RBC/100 WBC (Bld) [Ratio] 0 % 0-5 [facility] Work Phone: MCHC Auto (RBC) [Mass/Vol]on 03-06-2022 MCHC (RBC) [Mass/Vol] 32.4 g/dL 32-36 [facility] Work Phone: No Panel Informationon 03-06 Estimated GFR (MDRD) Amer 129 mL/min >60 [facility] Work Phone: Comment on above: GFR Calc Estimated GFR (MDRD) Non-Af Amer 106 mL/min >60 [facility] Work Phone: Comment on above: Non- GFR Calc Thyroid Stimulating Hormone (TSH) 3.39 uIU/mL 0.358-3.74 [facility] Work Phone: Urine Microalbumin/Creatinine Ratio 16.0 mg/g CRE <30 [facility] Work Phone: Platelets bldon 03-06-2022 Platelets (Bld) [#/Vol] 320 10*3/uL 150-450 [facility] Work Phone: Serum or plasma albumin abbey urement (mass/volume)on 03-06-2022 Albumin [Mass/Vol] 3.2 g/dL 3.2-5.0 [facility] Work Phone: Serum or plasma albumin/glob ulin mass ratioon 03-06-2022 Albumin/Globulin [Mass ratio] 0.7 {ratio} 0.9-2.4 [facility] Work Phone: Serum or plasma calcium abbey urement (mass/volume)on 03-06-2022 Calcium [Mass/Vol] 8.8 mg/dL 8.5-10.1 [facility] Work Phone: Serum or plasma cholesterol in HDL measurement (mass/volume)on 03-06-2022 Cholesterol in HDL [Mass/Vol] 48 mg/dL [facility] Work Phone: Comment on above: The drugs N-Acetylcy steine and Metamizole may falsely depress this assay. Reference Range HDL <40 mg/dL Low HDL Cholesterol HDL >or= 60 mg/dL High HDL Cholesterol Serum or plasma cholesterol in VLDL measurement (mass/volume)on 03-06-2022 Cholesterol in VLDL [Mass/Vol] 24 mg/dL 5-40 [facility] Work Phone: Serum or plasma creatinine m easurement (mass/volume)on 03-06-2022 Creatinine [Mass/Vol] 0.64 mg/dL 0.55-1.02 [facility] Work Phone: Comment on above: The validity of the calculated GFR & GFRAA in patients over 70 years has not been determined. Clinical correlation is essential. Serum or plasma low density lipoprotein (LDL) cholesterol measurement (mass/volume)on 03-06-2022 Cholesterol in LDL [Mass/Vol] 141 mg/dL 0-130 [facility] Work Phone: Serum or plasma urea nitroge n measurement (mass/volume)on 03-06-2022 Urea nitrogen [Mass/Vol] 9 mg/dL 7-18 [facility] Work Phone: Thin prep Papanicolaou smear with manual screeningon 03-06-2022 Thin prep Papanicolaou smear with manual screening 24 U/L 15-37 [facility] Work Phone: Thin prep Papanicolaou smear with manual screening 9 5-15 [facility] Work Phone: Thin prep Papanicolaou smear with manual screening 11.6 mg/L NO RANGE EST. [facility] Work Phone: Urine creatinine measurement (mass/volume)on 03-06-2022 Creatinine (U) [Mass/Vol] 72.50 mg/dL NO RANGE EST. [facility] Work Phone: Absolute lymphocyte counton 03-02-2022 Lymphocytes Auto (Unsp spec) [#/Vol] 2.27 10*3/uL 0.83-4.51 [facility] Work Phone: Basophil percentageon 2021 Basophil percentage 0 SEEN /hpf [facility] Work Phone: Basophils/100 WBC (Bld) 0.8 % 0-1 [facility] Work Phone: Bilirubin [Mass/Vol] 0.50 mg/dL 0.20-1.00 [facility] Work Phone: Comment on above: For patients on eltr ombopag therapy, use of Dimension [place] TBIL is not recommended. Chloride [Moles/Vol] 109 mmol/L 98-107 [facility] Work Phone: Eosinophils/100 WBC (Bld) 2.5 % 0-5 [facility] Work Phone: Glucose [Mass/Vol] 103 mg/dL 74-106 [facility] Work Phone: Comment on above: Fasting Glucose resu lt from 100 to 125 mg/dL suggests IMPAIRED HOMEOSTASIS per A.D.A. criteria. Neutrophils (Bld) [#/Vol] 4.4 10*3/uL 2.0-7.7 [facility] Work Phone: Neutrophils/100 WBC (Bld) 58.5 % 47-70 [facility] Work Phone: Potassium [Moles/Vol] 3.7 mmol/L 3.5-5.1 [facility] Work Phone: Protein [Mass/Vol] 8.2 g/dL 6.4-8.2 [facility] Work Phone: Sodium [Moles/Vol] 138 mmol/L 136-145 [facility] Work Phone: WBC (Bld) [#/Vol] 7.5 10*3/uL 4.4-11.0 [facility] Work Phone: Beta hCG serum qualon 2021 Beta HCG ( test) Ql Negative [facility] Work Phone: Bilirubin Test strip Ql (U)o n 03-02-2022 Bilirubin Ql (U) Negative Negative [facility] Work Phone: Blood erythrocytes count (nu mber/volume)on 03-02-2022 RBC (Bld) [#/Vol] 4.32 10*6/uL 4.2-5.4 [facility] Work Phone: Blood hemoglobin measurement (mass/volume)on 03-02-2022 Hemoglobin (Bld) [Mass/Vol] 13.4 g/dL 12.0-15.0 [facility] Work Phone: Blood lymphocytes/100 leukoc yteson 03-02-2022 Lymphocytes/100 WBC (Bld) 30.3 % 19-41 [facility] Work Phone: Blood monocytes/100 leukocyt eson 03-02-2022 Monocytes/100 WBC (Bld) 7.6 % 0-10 [facility] Work Phone: Blood platelet mean volumeon 03-02-2022 Platelet mean volume (Bld) [Entitic vol] 10.5 fL 6.2-12.0 [facility] Work Phone: Determination of erythrocyte mean corpuscular volume (MCV)on 03-02-2022 MCV (RBC) [Entitic vol] 94.0 fL 81-99 [facility] Work Phone: Hematocrit Auto (Bld) [Volum e fraction]on 03-02-2022 Hematocrit (Bld) [Volume fraction] 40.6 % 37-47 [facility] Work Phone: Ketones Test strip Ql (U)on 03-02-2022 Ketones Ql (U) Negative Negative [facility] Work Phone: Laboratory - Chemistry and C hemistry - challengeon 03-02-2022 ALP [Catalytic activity/Vol] 86 U/L 45-117 [facility] Work Phone: ALT [Catalytic activity/Vol] 20 U/L 13-56 [facility] Work Phone: CO2 [Moles/Vol] 22.0 mmol/L 21.0-32.0 [facility] Work Phone: Globulin (S) [Mass/Vol] 5.1 g/dL 2.2-4.2 [facility] Work Phone: Lipase [Catalytic activity/Vol] 64 U/L 73-393 [facility] Work Phone: Urea nitrogen/Creatinine [Mass ratio] 18.5 mg/mg 10-20 [facility] Work Phone: Laboratory - Hematology and Cell countson 03-02-2022 Erythrocyte distribution width (RBC) [Entitic vol] 43.3 fL 35.1-43.9 [facility] Work Phone: Erythrocyte distribution width (RBC) [Ratio] 12.5 % 11.6-14.6 [facility] Work Phone: Immature granulocytes/100 WBC (Bld) 0.300 % 0.0-0.9 [facility] Work Phone: Comment on above: IG% - Immature Granu locytes (promyelocytes, myelocytes and metamyelocytes) > 1% indicates that a LEFT SHIFT is Present. MCH (RBC) [Entitic mass] 31.0 pg 27.0-32.0 [facility] Work Phone: Nucleated RBC/100 WBC (Bld) [Ratio] 0 % 0-5 [facility] Work Phone: MCHC Auto (RBC) [Mass/Vol]on 03-02-2022 MCHC (RBC) [Mass/Vol] 33.0 g/dL 32-36 [facility] Work Phone: Mucus LM Ql (Urine sed)on Mucus Ql (Urine sed) 0 SEEN /hpf [facility] Work Phone: Nitrite Test strip Ql (U)on 03-02-2022 Nitrite Ql (U) Negative Negative [facility] Work Phone: No Panel Informationon 03-02 Estimated Creatinine Clearance Calc 103.39 ml/min [facility] Work Phone: Estimated GFR (MDRD) Amer 127 mL/min >60 [facility] Work Phone: Comment on above: GFR Calc Estimated GFR (MDRD) Non-Af Amer 105 mL/min >60 [facility] Work Phone: Comment on above: Non- GFR Calc Platelets bldon 03-02-2022 Platelets (Bld) [#/Vol] 307 10*3/uL 150-450 [facility] Work Phone: Protein Test strip Ql (U)on 03-02-2022 Protein Ql (U) Negative Negative [facility] Work Phone: Serum or plasma albumin abbey urement (mass/volume)on 03-02-2022 Albumin [Mass/Vol] 3.1 g/dL 3.2-5.0 [facility] Work Phone: Serum or plasma albumin/glob ulin mass ratioon 03-02-2022 Albumin/Globulin [Mass ratio] 0.6 {ratio} 0.9-2.4 [facility] Work Phone: Serum or plasma calcium abbey urement (mass/volume)on 03-02-2022 Calcium [Mass/Vol] 8.8 mg/dL 8.5-10.1 [facility] Work Phone: Serum or plasma creatinine m easurement (mass/volume)on 03-02-2022 Creatinine [Mass/Vol] 0.65 mg/dL 0.55-1.02 [facility] Work Phone: Comment on above: The validity of the calculated GFR & GFRAA in patients over 70 years has not been determined. Clinical correlation is essential. Serum or plasma urea nitroge n measurement (mass/volume)on 03-02-2022 Urea nitrogen [Mass/Vol] 12 mg/dL 7-18 [facility] Work Phone: Squamous epithelial cells de tection in urine sediment by light microscopyon 03-02-2022 Epithelial cells.squamous LM Ql (Urine sed) 0-5 SEEN /hpf [facility] Work Phone: Thin prep Papanicolaou smear with manual screeningon 03-02-2022 Thin prep Papanicolaou smear with manual screening 14 U/L 15-37 [facility] Work Phone: Thin prep Papanicolaou smear with manual screening 7 5-15 [facility] Work Phone: Urine blood detectionon 02-17 RBC Ql (U) Negative Negative [facility] Work Phone: RBC Ql (U) 0 SEEN /hpf [facility] Work Phone: Urine clarityon 03-02-2022 Clarity (U) Clear Clear [facility] Work Phone: Urine color determinationon 03-02-2022 Color (U) Yellow Yellow [facility] Work Phone: Urine glucose detectionon Glucose Ql (U) Normal mg/dl Normal [facility] Work Phone: Urine leukocyte esterase det ection by dipstickon 03-02-2022 Leukocyte esterase Test strip Ql (U) Negative Negative [facility] Work Phone: Urine pHon 03-02-2022 pH (U) 6.5 [pH] [facility] Work Phone: Urine sediment bacteria coun t by microscopy (number/high power field)on 03-02-2022 Bacteria LM.HPF (Urine sed) [#/Area] 0 /[HPF] None Seen [facility] Work Phone: Urine specific gravity measu rementon 03-02-2022 Specific gravity (U) [Rel density] 1.005 [facility] Work Phone: Urobilinogen Auto test strip Ql (U)on 03-02-2022 Urobilinogen Ql (U) Normal mg/dl Normal [facility] Work Phone: DESMOND CULTURE-OTHER ([id number])Ord ered By: Lesli Márquez on 12-28-2008 Bacteria identified Respiratory culture Nom (Unsp spec) Final report Normal [facility] Work Phone: Comment on above: PATIENT NOT FASTINGC linical Information: SRC:THRT ADD [id number] PERFORMED BY: [employer] [id number] Starr TraianaFormerly [facility] [id number] Bacteria identified Respiratory culture Nom (Unsp spec) RRF Normal [facility]; [facility] Work Phone: Comment on above: Routine respiratory lisa PATIENT NOT FASTINGC linical Information: SRC:THRT ADD [id number] PERFORMED BY: [employer] [id number] [place] [address] [id number] INFLUENZA IMMUNOASSY DIRECT OPTICAL OBSERV ([id number])Ordered By: Octavia Alejo on 12-28-2008 FLUAV Ag IA Ql (Throat) Negative Normal [facility] Work Phone: Comment on above: a and b Rapid Strep Test, Office ([phone])on 12-28-2008 S. pyogenes Ag EIA Ql (Throat) Negative Normal [facility] Work Phone: LIPID PANEL ([id number])Ordered B y: Lesli Márquez on 11-25-2008 Cholesterol [Mass/Vol] 229 mg/dL Abnormal 100-199 [facility] Work Phone: Comment on above: PATIENT WAS FASTINGC linical Information: ADD DRAW FEE [id number] ADD J [id number] PERFORMED BY: [employer] [id number] [facility] [id number] Cholesterol in HDL [Mass/Vol] 61 mg/dL Normal [facility]; [facility] Work Phone: Comment on above: According to ATP-III Guidelines, HDL-C >59 mg/dL is considered anegative risk factor for CHD. PATIENT WAS FASTINGC linical Information: ADD DRAW FEE [id number] ADD J [id number] PERFORMED BY: [employer] [id number] [facility] [id number] Cholesterol in LDL [Mass/Vol] 141 mg/dL Abnormal 0-99 [facility] Work Phone: Comment on above: PATIENT WAS FASTINGC linical Information: ADD DRAW FEE [id number] ADD J [id number] PERFORMED BY: [employer] [id number] [facility] [id number] Cholesterol in LDL/Cholesterol in HDL [Mass ratio] SPRCS Normal [facility]; [facility] Work Phone: Comment on above: If initial LDL-ariadna sterol result is >100 mg/dL, assess forrisk factors. PATIENT WAS FASTINGC linical Information: ADD DRAW FEE [id number] ADD J [id number] PERFORMED BY: JAY[employer] [id number] [facility] [id number] Cholesterol in LDL/Cholesterol in HDL [Mass ratio] 2.3 {ratio_units} Normal 0.0-3.2 [facility] Work Phone: Comment on above: PATIENT WAS FASTINGC linical Information: ADD DRAW FEE [id number] ADD J [id number] PERFORMED BY: [employer] [id number] [facility] [id number] Cholesterol in VLDL [Mass/Vol] 27 mg/dL Normal 5-40 [facility] Work Phone: Comment on above: PATIENT WAS FASTINGC linical Information: ADD DRAW FEE [id number] ADD J [id number] PERFORMED BY: [employer] [id number] [facility] [id number] Triglyceride [Mass/Vol] 136 mg/dL Normal 0-149 [facility] Work Phone: Comment on above: PATIENT WAS FASTINGC linical Information: ADD DRAW FEE [id number] ADD J [id number] PERFORMED BY: [employer] [id number] [facility] [id number] T3, FREE (TRIDOTHYRONINE) ([id number])Ordered By: Lesli Márquez on 11-25-2008 Free T3 [Mass/Vol] 2.8 pg/mL Normal 2.3-4.2 [facility]; [facility] Work Phone: Comment on above: PATIENT WAS FASTINGP ERFORMED BY: [employer] [id number] [facility] [id number] T4, FREE (THYROXINE) ([id number]) Ordered By: Lesli Márquez on 11-25-2008 Free T4 [Mass/Vol] 1.04 ng/dL Normal 0.61-1.76 [facility]; [facility] Work Phone: Comment on above: PATIENT WAS FASTINGP ERFORMED BY: [employer] [id number] [facility] [id number] TSH ([id number])Ordered By: Nick Márquez on 11-25-2008 TSH Qn 2.662 {uIU/mL} Normal 0.450-4.50 0 [facility]; [facility] Work Phone: Comment on above: PATIENT WAS FASTINGP ERFORMED BY: [employer] [id number] [facility] [id number] Vital Signs Date Time Vital Sign Value Performing Clinician Facility 02-11-2025 09:19-0400 Body temperature 98.2 [degF] Dr. Lesli Márquez DO Work Phone: [facility] 02-11-2025 09:19-0400 Body weight 127.[address] [place]li Márquez DO Work Phone: [facility] 02-11-2025 09:19-0400 Diastolic blood pressure 88 mm[Hg] Dr. Lesli Márquez DO Work Phone: [facility] 02-11-2025 09:19-0400 Heart rate 88 /min Dr. Lesli Márquez DO Work Phone: [facility] 02-11-2025 09:19-0400 Respiratory rate 17 /min Dr. Lesli Márquez DO Work Phone: [facility] 02-11-2025 09:19-0400 SaO2% (BldA) [Mass fraction] 98 % Dr. Lesli Márquez DO Work Phone: [facility] 02-11-2025 09:19-0400 Systolic blood pressure 148 mm[Hg] Dr. Lesli Márquez DO Work Phone: [facility] 03-13-2023 07:05-0400 Body height 169.55 cm zakiya [facility]; [facility] Work Phone: 03-13-2023 07:05-0400 Body mass index (BMI) [Ratio] 41.54 kg/m2 [facility]; [facility] Work Phone: 03-13-2023 07:05-0400 Body surface area Derived from formula 2.27 m2 [facility] Work Phone: 03-13-2023 07:05-0400 Body temperature 97 [degF] [facility] Work Phone: 03-13-2023 07:05-0400 Body weight 119.41 kg [facility]; [facility] Work Phone: 03-13-2023 07:05-0400 Diastolic blood pressure 80 mm[Hg] [facility]; [facility] Work Phone: Comment on above: Patient Position: Sitting; Cuff Location : Left Arm; Cuff Size: Standard 03-13-2023 07:05-0400 Heart rate 98 /min [facility] Work Phone: Comment on above: Pattern: Regular 03-13-2023 07:05-0400 Respiratory rate 16 /min [facility] Work Phone: Comment on above: Pattern: Unlabored 03-13-2023 07:05-0400 SaO2% (BldA) [Mass fraction] 97 % [facility]; [facility] Work Phone: Comment on above: Room air 03-13-2023 07:05-0400 Systolic blood pressure 120 mm[Hg] [facility]; [facility] Work Phone: Comment on above: Patient Position: Sitting; Cuff Location : Left Arm; Cuff Size: Standard 11-14-2022 11:40-0500 Body height 169.55 cm [facility] Work Phone: 11-14-2022 11:40-0500 Body mass index (BMI) [Ratio] 40.45 kg/m2 [facility]; [facility] Work Phone: 11-14-2022 11:40-0500 Body surface area Derived from formula 2.24 m2 [facility]; [facility] Work Phone: 11-14-2022 11:40-0500 Body temperature 97.8 [degF] [facility]; [facility] Work Phone: 11-14-2022 11:40-0500 Body weight 116.29 kg [facility]; [facility] Work Phone: 11-14-2022 11:40-0500 Diastolic blood pressure 80 mm[Hg] [facility]; [facility] Work Phone: Comment on above: Patient Position: Sitting; Cuff Location : Left Arm; Cuff Size: Standard 11-14-2022 11:40-0500 Heart rate 110 /min [facility] Work Phone: Comment on above: Pattern: Regular 11-14-2022 11:40-0500 Respiratory rate 16 /min [facility] Work Phone: Comment on above: Pattern: Unlabored 11-14-2022 11:40-0500 SaO2% (BldA) [Mass fraction] 98 % [facility]; [facility] Work Phone: Comment on above: Room air 11-14-2022 11:40-0500 Systolic blood pressure 130 mm[Hg] [facility]; [facility] Work Phone: Comment on above: Patient Position: Sitting; Cuff Location : Left Arm; Cuff Size: Standard 10-09-2022 13:10-0500 Body temperature 96.4 [degF] [facility]; [facility] Work Phone: 10-09-2022 13:10-0500 Diastolic blood pressure 80 mm[Hg] [facility]; [facility] Work Phone: Comment on above: Patient Position: Sitting; Cuff Location : Left Arm; Cuff Size: Standard 10-09-2022 13:10-0500 Heart rate 75 /min [facility]; [facility] Work Phone: Comment on above: Pattern: Regular 10-09-2022 13:10-0500 Respiratory rate 16 /min [facility]; [facility] Work Phone: Comment on above: Pattern: Unlabored 10-09-2022 13:10-0500 SaO2% (BldA) [Mass fraction] 99 % [facility]; [facility] Work Phone: Comment on above: Room air 10-09-2022 13:10-0500 Systolic blood pressure 132 mm[Hg] [facility]; [facility] Work Phone: Comment on above: Patient Position: Sitting; Cuff Location : Left Arm; Cuff Size: Standard 09-11-2022 15:09-0500 Body height 169.55 cm [facility]; [facility] Work Phone: 09-11-2022 15:09-0500 Body mass index (BMI) [Ratio] 40.45 kg/m2 [facility]; [facility] Work Phone: 09-11-2022 15:09-0500 Body surface area Derived from formula 2.24 m2 [facility]; [facility] Work Phone: 09-11-2022 15:09-0500 Body temperature 96.9 [degF] [facility]; [facility] Work Phone: 09-11-2022 15:09-0500 Body weight 116.29 [facility] Work Phone: 09-11-2022 15:09-0500 Diastolic blood [facility] 84 mm[facility]Hg[facility] Work Phone: Comment on above: Patient Position: Sitting; Cuff Location : Left Arm; Cuff Size: Standard 09-11-2022 15:09-0500 Heart rate 99 /min [facility]; [facility] Work Phone: Comment on above: Pattern: Regular 09-11-2022 15:09-0500 Respiratory rate 16 /min [facility]; [facility] Work Phone: Comment on above: Pattern: Unlabored 09-11-2022 15:09-0500 SaO2% (BldA) [Mass fraction] 99 % [facility]; [facility] Work Phone: Comment on above: Room air 09-11-2022 15:09-0500 Systolic blood pressure 124 mm[Hg] [facility]; [facility] Work Phone: Comment on above: Patient Position: Sitting; Cuff Location : Left Arm; Cuff Size: Standard 08-16-2022 08:38-0400 Body height 169.55 cm Saleem Rodriguez [facility] Internal Medicine; [facility] Work Phone: 08-16-2022 08:38-0400 Body mass index (BMI) [Ratio] 40.55 kg/m2 Saleem Rodriguez [facility]; [facility] Work Phone: 08-16-2022 08:38-0400 Body surface area Derived from formula 2.24 m2 Saleem Rodriguez [facility]; [facility] Work [...] 08-14-2022 16:03-0400 Diastolic blood pressure 92 mm[Hg] [facility] Work Phone: 08-14-2022 16:03-0400 Heart rate 100 /min [facility] Work Phone: 08-14-2022 16:03-0400 Respiratory rate 15 /min [facility] Work Phone: 08-14-2022 16:03-0400 SaO2% (BldA) [Mass fraction] 99 % [facility] Work Phone: 08-14-2022 16:03-0400 Systolic blood pressure 163 mm[Hg] [facility] Work Phone: 08-14-2022 13:43-0400 Body height 165.1 cm [facility] Work Phone: 08-14-2022 13:43-0400 Body mass index (BMI) [Ratio] 20.5 kg/m2 [facility] Work Phone: 08-14-2022 13:43-0400 Body temperature 98.3 [degF] [facility] Work Phone: 08-14-2022 13:43-0400 Body weight 56.1 kg [facility] Work Phone: 07-10-2022 16:04-0400 Body height 169.55 cm [facility]; [facility] Work Phone: 07-10-2022 16:04-0400 Body mass index (BMI) [Ratio] 41.68 kg/m2 [facility]; [facility] Work Phone: 07-10-2022 16:04-0400 Body surface area Derived from formula 2.27 m2 [facility]; [facility] Work Phone: 07-10-2022 16:04-0400 Body temperature 97.1 [degF] [facility]; [facility] Work Phone: 07-10-2022 16:04-0400 Body weight 119.81 kg [facility]; [facility] Work Phone: 07-10-2022 16:04-0400 Diastolic blood pressure 80 mm[Hg] [facility]; [facility] Work Phone: Comment on above: Patient Position: Sitting; Cuff Location : Left Arm; Cuff Size: Standard 07-10-2022 16:04-0400 Heart rate 102 /min [facility]; [facility] Work Phone: Comment on above: Pattern: Regular 07-10-2022 16:04-0400 Respiratory rate 16 /min [facility]; [facility] Work Phone: Comment on above: Pattern: Unlabored 07-10-2022 16:04-0400 SaO2% (BldA) [Mass fraction] 97 % Austin Cedillo [facility]; [facility] Work Phone: Comment on above: Room air 07-10-2022 16:04-0400 Systolic blood pressure 130 mm[Hg] Austin Cedillo [facility]; [facility] Work Phone: Comment on above: Patient Position: Sitting; Cuff Location : Left Arm; Cuff Size: Standard 05-16-2022 08:35-0400 Body height 169.55 cm Sofiya Logan [facility]; [facility] Work Phone: 05-16-2022 08:35-0400 Body mass index (BMI) [Ratio] 42.29 kg/m2 Sofiya Logan [facility]; [facility] Work Phone: 05-16-2022 08:35-0400 Body surface area Derived from formula 2.28 m2 Sofiya Logan [facility]; [facility] Work Phone: 05-16-2022 08:35-0400 Body temperature 97.3 [degF] Sofiya Logan [facility]; [facility] Work Phone: Comment on above: Method: Infrared 05-16-2022 08:35-0400 Body weight 121.56 kg Sofiya Logan [facility]; [facility] Work Phone: 05-16-2022 08:35-0400 Diastolic blood pressure 84 mm[Hg] Sofiya Logan [facility]; [facility] Work Phone: Comment on above: Patient Position: Sitting; Cuff Location : Left Arm; Cuff Size: Standard 05-16-2022 08:35-0400 Heart rate 104 /min Sofiya Logan [facility]; [facility] Work Phone: Comment on above: Pattern: Regular 05-16-2022 08:35-0400 Respiratory rate 18 /min Sofiya Logan [facility]; [facility] Work Phone: Comment on above: Pattern: Unlabored 05-16-2022 08:35-0400 SaO2% (BldA) [Mass fraction] 97 % Sofiya Logan [facility]; [facility] Work Phone: Comment on above: Room air 05-16-2022 08:35-0400 Systolic blood pressure 128 mm[Hg] Sofiya Logan [facility]; [facility] [...] 14:02-0400 Body height 169.55 cm Alycia Maldonado [facility]; [facility] Work Phone: 03-11-2022 14:02-0400 Body mass index (BMI) [Ratio] 43.71 kg/m2 Alycia Maldonado [facility]; [facility] Work Phone: 03-11-2022 14:02-0400 Body surface area Derived from formula 2.32 m2 Alycia Slarb [employer] [facility]; [facility] Work Phone: 03-11-2022 14:02-0400 Body temperature 97.1 [degF] Alycia Slarb [facility]; [facility] Work Phone: 03-11-2022 14:02-0400 Body weight 125.65 kg Alycia Slarb [employer] [facility]; [facility] Work Phone: 03-11-2022 14:02-0400 Diastolic blood pressure 88 mm[Hg] Alycia Slarb [facility] [facility]; [facility] Work Phone: Comment on above: Patient Position: Sitting; Cuff Location : Left Arm; Cuff Size: Standard 03-11-2022 14:02-0400 Heart rate 126 /min Alycia Slarb [employer]; [facility] Work Phone: Comment on above: Pattern: Regular 03-11-2022 14:02-0400 Respiratory rate 16 /min Alycia Slarb [facility]; [facility] Work Phone: Comment on above: Pattern: Unlabored 03-11-2022 14:02-0400 SaO2% (BldA) [Mass fraction] 98 % Alycia Slarb [employer]; [facility] Work Phone: Comment on above: Room air 03-11-2022 14:02-0400 Systolic blood pressure 142 mm[Hg] Alycia Slarb [employer] [facility]; [facility] Work Phone: Comment on above: Patient Position: Sitting; Cuff Location : Left Arm; Cuff Size: Standard 03-02-2022 09:24-0400 Diastolic blood pressure 96 mm[Hg] [facility] Work Phone: 03-02-2022 09:24-0400 Heart rate 83 /min [facility] Work Phone: 03-02-2022 09:24-0400 Respiratory rate 18 /min [facility] Work Phone: 03-02-2022 09:24-0400 SaO2% (BldA) [Mass fraction] 98 % [facility] Work Phone: 03-02-2022 09:24-0400 Systolic blood pressure 154 mm[Hg] [facility] Work Phone: 03-02-2022 07:-040 Body height 167.64 cm [facility] Work Phone: 03-02-2022 07:26-0400 Body mass index (BMI) [Ratio] 44.4 kg/m2 [facility] Work Phone: 03-02-2022 07:-040 Body temperature 97.9 [degF] [facility] Work Phone: 03-02-2022 07:26-0400 Body weight 124.7 kg [facility] Work Phone: 08-08-2010 12:15-0400 Body [...] Provider Facility Start: 07-28-2025 ambulatory Gardenia Dawson Facility:[facility] Start: 04-12-2025 End: 04-12-[address] Lesli Márquez DO Work Phone: -Radiology [facility] Start: 04-12-2025 End: 04-12-[address] Lesli Márquez DO -Radiology [facility] Work Phone: Start: 04-12-2025 End: 04-12-2025 ambulatory Lesli Márquez Facility:[facility] Start: 03-19-2025 End: 03-19-[address] Lesli Márquez DO Work Phone: [facility] Work Phone: Start: 03-19-2025 End: 03-19-[address] Lesli Márquez DO -Laboratory Work Phone: Start: 03-19-2025 End: 03-19-2025 ambulatory Lesli Márquez Facility:[facility] Start: 02-11-2025 End: 02-11-2025 Patient encounter procedure Gardenia Dawson [place] [facility] Work Phone: Start: 02-11-2025 End: 02-11-2025 ambulatory Lesli Márquez [facility] Start: 02-10-2025 End: 02-10-[address] Lesli Márquez DO Work Phone: [facility] Work Phone: Start: 02-10-2025 End: 02-10-[address] Lesli Márquez DO -Cat Scan, [facility] Work Phone: Start: 02-10-2025 End: 02-10-2025 ambulatory Lesli Márquez Facility:[facility] Start: 12-25-2024 End: 12-25-2024 Subsequent hospital visit by physician Harinder Lloyd [facility] Comment on above: Other abnormal gluco se Start: 12-25-2024 End: 12-25-2024 ambulatory LESLI Gutierrez [facility] Start: 11-06-2024 End: 11-06-[address] Lesli Márquez DO -Laboratory Work Phone: Start: 11-06-2024 End: 11-06-2024 ambulatory Lesli Márquez Facility:[facility] Start: 10-10-2023 End: 10-10-2023 ambulatory [facility] Work Phone: Start: 10-10-2023 End: 10-10-2023 Patient encounter procedure [facility] Ultrasound Work Phone: Start: 10-08-2023 End: 10-08-2023 ambulatory [facility] Work Phone: Start: 10-08-2023 End: 10-08-2023 Patient encounter procedure [facility]-Outpatient Breast Imaging Work Phone: Start: 09-23-2023 End: 09-23-2023 Emergency department patient visit [facility] Start: 04-08-2023 End: 04-08-2023 ambulatory [facility] Work Phone: Start: 04-08-2023 End: 04-08-2023 Patient encounter procedure [facility]-Outpatient Bone Densitometry Start: 03-13-2023 End: 03-13-2023 Office [...] 08-14-2022 End: 08-14-2022 Emergency department patient visit [facility]-Emergency Department Start: 07-10-2022 End: 07-10-2022 Office outpatient visit 15 minutes Lesli Darinel DO Work Phone: [facility] Start: 05-16-2022 End: 05-16-2022 Office outpatient visit 10 minutes Lesli Darinel DO Work Phone: [facility] Start: 05-08-2022 End: 05-08-2022 Patient encounter procedure [facility]-Cardiovascular Services Start: 05-08-2022 End: 05-11-2022 Office outpatient visit 5 minutes Lesli Darinel DO Work Phone: [facility] Start: 03-29-2022 End: 03-29-2022 Office outpatient visit 5 minutes Lesli Darinel DO Work Phone: [facility] Start: 03-28-2022 End: 03-28-2022 Office outpatient visit 25 minutes Lesli Darinel DO Work Phone: [facility] Start: 03-22-2022 End: 03-22-2022 Patient encounter procedure [facility] Start: 03-11-2022 End: 03-11-2022 Office outpatient visit 25 minutes Lesli Darinel DO Work Phone: [facility] Start: 03-11-2022 Review Lesli Suo n DO Work Phone: [facility] Start: 03-08-2022 End: 03-08-2022 Phone Encounter Lesli Darinel DO Work Phone: [facility] Start: 03-06-2022 End: 03-06-2022 Patient encounter procedure [facility]-Laboratory Start: 03-05-2022 End: 03-05-2022 Annotation/Addendum Lesli Darinel DO Work Phone: [facility] Start: 03-02-2022 End: 03-02-2022 Emergency department patient visit [facility]-Emergency Department Start: 08-09-2010 End: 08-09-2010 Annotation/Addendum Lesli [...] Density Study Procedure Note: See Note; NOTES: [facility] Imaging Services [address] [place] [id number] Dexa Bone Density Study MR#: [id number] Acct: [id number] Name: ALIX PALMER Rep #: [id number] : 1975 F 47 From: Hudson olmos MD PCP: Dr. Lesli Márquez, DO Status: DEP CLI Study: Dexa Bone Density Study Date of Exam: 04/08/23 Exam# [id number] Ordering Dr: Lesli Márquez DO STUDY: DUAL [...] 12:57 EDT Reading Location ID and State: [facility] / [place] , Service support , CC: Dr. Lesli Márquez DO Junior Database Administrator: Signed Lesli Márquez DO Work Phone: Start: 08-14-2022 End: 08-15-2022 Emergency Department Summary Procedure Note: See Note; NOTES: [facility] Medical Records Department [address] [place] [address] Emergency Department Summary 08/14/22 MR#: [id number] Acct: [id number] Name: ALIX PALMER Rep #: [id number] : 1975 46 From: Lionel Garcia MD [...] dry winter air. She has taken no zvbh-dzu-cxextps medications recently except for a half dose of Tylenol PM last night to help her get to sleep. No decongestants. [facility] Medical History COVID High blood pressure Nasal [...] % (Auto) 61.8 Lymph % (Auto) 28.1 Harrison % (Auto) 8.1 Eos % (Auto) 1.3 [...] Sl. Cloudy Urine pH 6.0 Ur Specific [place] 1.010 Urine Protein Negative Urine Glucose (UA) [...] if able) Activity Restrictions/Additional Instructions: Get any gynt-ebp-ribaqcc nasal decongestant spray containing oxymetazoline or phenylephrine. [...] your Primary Care Provider. Call [facility] ([phone]) or report to the closest Emergency Room. Call 911 if necessary. 08/15/22 0028 <Electronically signed by Lionel Garcia MD> Cosigner Signature (if applicable): CC: Dr. Lesli Márquez DO Signed Lesli Márquez DO Work Phone: Start: 08-14-2022 End: 08-16-2022 12 Lead EKG Procedure Note: See Note; NOTES: [facility] Cardiovascular Services [address] [place] [address] 12 Lead EKG 08/14/22 1351 MR#: [id number] Acct: [id number] Name: ALIX PALMER Rep #: [id number] : 1975 46 From: Gal Espinal MD [...] Abnormal ECG Confirmed by EFRA DURBIN, GATITO ([id number]), dictionary editor FREDA JSOEPH ([id number]) on 08/16/2022 2:07:28 PM Referred By: RU/TARI Confirmed By:NOE ESPINAL MD 08/16/22 1407 Date Gal Espinal MD CC: Dr. Lionel Garcia MD; Dr. Lesli Márquez DO; ED PHYSICIAN PROVIDER Signed Lesli Márquez DO Work Phone: Start: 08-14-2022 End: 08-14-2022 Chest 1 View (Portable) Procedure Note: See Note; NOTES: [facility] Imaging Services [address] [place] [address] Chest 1 View (Portable) MR#: [id number] Acct: [id number] Name: ALIX PALMER Rep #: [id number] : 1975 F 46 From: Hudson olmos MD PCP: Dr. Lesli Márquez DO Status: REG ER Study: Chest 1 View (Portable) Date of Exam: 08/14/22 Exam# [id number] Ordering Dr: Provider,Ed P. STUDY: X-RAY CHEST [...] 14:12 EDT Reading Location ID and State: [address] [place] [address] , Service support , CC: Dr. Lesli Márquez DO; ED PHYSICIAN PROVIDER Junior Database Administrator: Signed Lesli Márquez DO Work Phone: Start: 08-14-2022 Plain chest X-ray Start: 03-22-2022 End: 03-31-2022 MRI Abd WITH and W/O Contrast Comments: See Note; NOTES: [facility] Imaging Services [address] [place] [address] MRI Abd WITH and W/O Contrast MR#: [id number] Acct: [id number] Name: ALIX PALMER Rep #: [id number] : 1975 F 46 From: Gonzalo condon MD PCP: Dr. Lesli Márquez DO Status: REG CLI Study: MRI Abd WITH and W/O Contrast Date of Exam: Exam# [id number] Ordering Dr: Lesli Márquez DO STUDY: MRI [...] EDT , CC: Dr. Lesli Márquez DO Junior Database Administrator: Signed Lesli Márquez DO Work Phone: Start: 03-22-2022 MRI of abdomen with contrast Start: 03-02-2022 End: 03-04-2022 Emergency Department Summary Comments: See Note; NOTES: [facility] Medical Records Department [address] [facility] [place] [address] Emergency Department Summary 03/02/22 MR#: [id number] Acct: [id number] Name: ALIX PALMER Rep #: [id number] : 1975 46 From: Pollo Pinto MD [...] % (Auto) 58.5 Lymph % (Auto) 30.3 Harrison % (Auto) 7.6 Eos % (Auto) 2.5 [...] Color Urine Clarity Urine pH Ur Specific [place] Urine Protein Urine Glucose (UA) Urine Ketones Urine Occult Blood Urine Nitrite Urine Bilirubin Urine Urobilinogen Ur Leukocyte Esterase Urine RBC Urine WBC Ur Squamous Epith Cells Urine Bacteria Urine Mucus 03/02/22 09:26 WBC RBC Hgb Hct MCV MCH MCHC RDW Std Deviation RDW Coeff of Diane Plt Count MPV Immature Gran % (Auto) Neut % (Auto) Lymph % (Auto) Harrison % (Auto) Eos % (Auto) Baso % [...] Clarity Clear Urine pH 6.5 Ur Specific [place] 1.005 Urine Protein Negative Urine Glucose (UA) [...] Paper guidelines (mahamed Santos al. JACR 2017; 14(11):8194-6328.) suggest the following. For patients with low [...] 9:13 EDT Reading Location ID and State: [facility] / [place] , Service support , Discharge Plan Triage [...] problems, contact your Primary Care Provider. Call [facility] ([phone]) or report to the closest Emergency Room. Call 911 if necessary. 03/02/22 0957 <Electronically signed by Pollo Pinto MD> Cosigner Signature (if applicable): CC: Dr. Lesli Márquez DO Signed Lesli Márqeuz DO Work Phone: Start: 03-02-2022 End: 03-04-2022 Abdomen/Pelvis W IV Cont ONLY Comments: See Note; NOTES: [facility] Imaging Services [address] [place] [address] Abdomen/Pelvis W IV Cont ONLY MR#: [id number] Acct: [id number] Name: ALIX PALMER Rep #: [id number] : 1975 F 46 From: Jose Carlos Barrera PCP: Dr. Lesli Márquez, DO Status: PRE ER Study: Abdomen/Pelvis W IV Cont ONLY Date of Exam: Exam# [id number] Ordering Dr: Pollo Pinto MD STUDY: CT [...] Paper guidelines (Tom et al. JACR 2017; 14(11):9686-4208.) suggest the following. For patients with low [...] Pollo Pinto MD; Dr. Lesli Márquez DO Junior Database Administrator: Signed Lesli Márquez DO Work Phone: Start: 03-02-2022 Computed tomography of abdomen and pelvis with intravenous contrast Operation on vertebra Alycia Slarb [employer] [facility] Comment on above: 2010 Dr. Eduardo Operation on vertebra Sofiya Gravius [facility] Comment on above: 2010 Dr. Eduardo Operation on vertebra Sofiya Gravius [facility] Comment on above: 2010 Dr. Eduardo Operation on vertebra Kayela Cuthbert [facility] Comment on above: 2010 Dr. Eduardo Operation on vertebra Saleem Michael [facility] Comment on above: 2010 Dr. Eduardo Operation on vertebra Kayela Nguyen [facility] Comment on above: 2010 Dr. Eduardo Operation on vertebra Kayela Nguyen [facility] Comment on above: 2010 Dr. Eduardo Operation on vertebra Kayela Nguyen [facility] Comment on above: 2010 Dr. Eduardo Operation on vertebra Kayela Cuthbert [facility] Comment on above: 2010 Dr. Eduardo Tonsillectomy Tonsillectomy Octavia moise RN Tonsillectomy Tonsillectomy Sofiya Graviu s [employer] SOFTWARE FACILITATOR Tonsillectomy Tonsillectomy Sofiya Graviu s [employer] SOFTWARE FACILITATOR Tonsillectomy Tonsillectomy Sofiya Graviu s [employer] SOFTWARE FACILITATOR Tonsillectomy Tonsillectomy Kayela Radfor d [employer] SOFTWARE FACILITATOR Tonsillectomy Tonsillectomy Saleem Rodriguez [employer] Tonsillectomy Tonsillectomy Kayela Radfor d [employer] SOFTWARE FACILITATOR Tonsillectomy Tonsillectomy Kayela Radfor d [employer] SOFTWARE FACILITATOR Tonsillectomy Tonsillectomy Kayela Radfor d [employer] SOFTWARE FACILITATOR Tonsillectomy Tonsillectomy Kayela Radfor d [employer] SOFTWARE FACILITATOR Plan of Treatment Date Care Activity Detail Author Start: 2027 Zoster Vaccines (1 of 2) Zoste r Vaccines (1 of 2) [facility] Start: 04-08-2025 Screening for osteoporosis Bone Density Scan [facility] Start: 06-20-2024 COVID-19 Vaccine ( season) COVID-19 Vaccine ( season) [facility] Start: 06-20-2024 Influenza vaccination Influenza Vacc ine (#1) [facility] Start: 04-08-2023 Dual energy X-ray absorptiometry Dexa Bone Density Study [facility] Start: 03-13-2023 Procedure Education Eprescribe d prescriptions [...] Phone: Start: 07-10-2022 Lipid panel LIPID PANEL (27397) Com [facility]; [facility] [...] auto&auto difrntl wbc CBC W/AUTO DIFF WBC (07711) [facility]; [facility] Work Phone: Start: 03-11-2022 Procedure Education Eprescribe d prescriptions (G8553) [facility] Work Phone: Start: 03-11-2022 Provider Instruction s for Treatment [facility]; [facility] Work Phone: Start: 03-05-2022 25 hydroxy includes fractions if performed CALCIFEDIOL (66117) [facility]; [facility] Work Phone: Start: 03-05-2022 Urine albumin quantitative MICROALBUMIN: CREATININE RATIO (38846) AND (77653) [facility]; [facility] Work Phone: Start: 03-05-2022 Assay of thyroid stimulating hormone tsh TSH (THYROID STIMULATING HORMONE) (79898) [facility]; [facility] Work Phone: Start: 03-05-2022 Blood count complete automated CBC & PLATELETS (AUTO) (78536) [facility]; [facility] Work Phone: Start: 03-05-2022 Comprehensive metabo lic panel METABOLIC PANEL, COMPREHENSIVE (17637) [facility]; [facility] Work Phone: Start: 03-05-2022 Lipid panel LIPID PANEL (03905) [facility] prehensive [facility]; [facility] Work Phone: Start: 2017 Screening for malign ant neoplasm of breast Mammogram [facility] Start: 05-24-2010 Provider Instruction s for Treatment [facility]; [facility] Work Phone: Start: 05-24-2010 25 hydroxy includes fractions if performed Vitamin D Hydroxy (83249) [facility]; [facility] Work Phone: Start: 05-24-2010 1 25 dihydroxy inclu haily fractions if performed VITAMIN D, 1, 25-DIHYDROXY (76923) [facility]; [facility] Work Phone: Start: 05-24-2010 Assay of thyroid stimulating hormone tsh TSH (72850) [facility]; [facility] Work Phone: Start: 05-24-2010 Protein electrophore tic fractj&quantj serum [facility]; [facility] Work Phone: Start: 05-24-2010 Sedimentation rate r bc non-automated SED RATE ERYTHROCYTE (17323) [facility]; [facility] Work Phone: Start: 05-24-2010 Assay of phosphorus inorganic PHOSPHORUS (33820) [facility]; [facility] Work Phone: Start: 05-24-2010 Assay of parathormone PARATHORMONE ( 76518) [facility]; [facility] Work Phone: Start: 05-24-2010 Hepatic function panel HEPATIC FUNCTION PANEL (61741) [facility]; [facility] Work Phone: Start: 05-24-2010 Blood count complete automated CBC (AUTO) (74648) [facility]; [facility] Work Phone: Start: 05-24-2010 Calcium total CALCIUM SERUM (93948) [facility]; [facility] Work Phone: Start: 05-24-2010 C-reactive protein C-REACTIVE PROTEIN (12251) [facility] Work Phone: Start: 05-24-2010 Assay of phosphatase alkaline ALKALINE PHOSPHATASE (36931) [facility] Work [...] Phone: Start: 11-30-2008 Lipid panel LIPID PANEL (13146) [facility] Work Phone: Comment on above: do in 6 mo Start: 07-27-2008 Provider Instruction s for Treatment [facility] Work Phone: Start: 07-27-2008 Glucose quantitative blood xcpt reagent strip Glucose, PP/2 Hour (25939) [facility] Work Phone: Start: 1999 DTaP/Tdap/Td Vaccine s (1 - Tdap) DTaP/Tdap/Td Vaccines (1 - Tdap) [facility] Start: 1998 Screening for malign ant neoplasm of cervix [facility] Start: 1996 Hepatitis A Vaccines (1 of 2 - Risk 2-dose series) Hepatitis A Vaccines (1 of 2 - Risk 2-dose series) [facility] Start: 1996 Hepatitis B Vaccines (1 of 3 - 19+ 3-dose series) Hepatitis B Vaccines (1 of 3 - 19+ 3-dose series) [facility] Start: 1995 Diabetes mellitus screening Diabetes Screening [facility] Start: 1995 Hepatitis C screening Hepatitis C [facility] Start: 1978 MMR Vaccines (1 of 1 - Standard series) MMR Vaccines (1 of 1 - Standard series) [facility] Start: 1977 HIV screening HIV Screening [facility] Start: 1977 Lipid panel Lipid Panel [facility] Start: 1977 Screening for malign ant neoplasm of colon [facility] Start: 1977 Yearly Adult Physical Yearly Adult P hysical [facility] End: 12-25-2024 CT for calcium scoring WO contrast and CTA W contrast IV Heart and coronary arteries [facility] Service Area Work Phone: Comment on above: Once for 1 Occurrenc es starting 12/25/2024 until 12/25/2024 CTA Chest vessels WO and W contrast IV [facility] Patient Education [facility] Work Phone: Patient referral [facility] Work Phone: [facility]; [facility] [...] Immunization Date Immunization Notes Care Provider [facility] 08-13-2022 influenza, seasonal, injectable Lesli Márquez DO Work Phone: [facility] Work Phone: 08-13-2022 influenza virus vaccine, unspecified formulation [facility] [address] [facility] Work Phone: Payers Date Payer Category Payer Self-pay [id number] 2023 Worker's Compensation [id number] 2023 [facility] Care (Private) [facility] Member Subscriber Plan / Payer (Effective 2023-Present) Name: Alix Palmer Relation to Subscriber: Self Name: Alix Palmer Payer ID: Not on file Type: Not on file Address: [place] [id number] 2021 Unknown [id number] 2010 Unknown [id number] 2008 Unknown [id number] 1977 Unknown [id number] 1977 Unknown [id number] 903 1977 Unknown [id number] 1243 Unknown [facility] *DO NOT USE* [id number] Unknown Unknown [employer] [id number] Unknown [id number] Unknown [id number] 462 Unknown [id number] 462 Unknown [id number]. 462 Unknown [id number]. 462 Unknown [id number] 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 Start: 12-25-2024 Gender identity Identifies as female gender (finding) [facility] Work Phone: Start: 12-25-2024 Sexual orientation Heterosexual (fin ding) [facility] Work Phone: Start: 12-15-2024 End: 12-25-2024 Exposure to SARS-CoV-2 (event) Not sure [facility] Work Phone: Start: 04-15-2024 Tobacco smoking stat us NHIS Never smoked tobacco (finding) [facility] Start: 02-15-2025 Sex Female (finding) [facility] Mental Status Date Assessment Result Facility 08-14-2022 Cognitive function Level Of Cons ciousness Awake;Alert;Appropriate;Follow s Commands [facility] Work Phone: Clinical Notes 02-10-2025 to 04-13-2025 Note Date & Type Note Facility 04-13-2025 Radiology Diagnostic study note [facility] Imaging Services [address] [place], [place] [address] Bone Survey Comp(Axial&Append) MR#: [id number] Acct: [id number] Name: ALIX PALMER Rep #: [id number] : 1975 F 49 From: Eliot Santos MD PCP: Dr. Lseli Márquez DO Status: RE G CLI Study:Bone Survey Comp(Axial&Append) Date of Exam: 04/12/25 Exam# [id number] Ordering Dr: Matt Márquez DO PROCEDURE: BONE SURVEY COMP(AXIAL APPEND) 04/12/2025 REASON FOR EXAM: MONOCLONAL GAMMOPATHIES F, age 49 y/o . TECHNIQUE: Skeletal survey. COMPARISON: None. FINDINGS: No lytic or blastic aggressive bone lesion is identified. No fracture or dislocation is seen. No periosteal reaction is noted. Mild diffuse spondylosis. RAD/Bone Survey Comp(Axial&Append) IMPRESSION: No suspicious bone lesion is identified. [facility] CC: Dr. Lesli Márquez DO ~ Junior Database Administrator: Signed [facility] 02-11-2025 Evaluation note Diagnosis Onset Date Resolution Thoracic aortic aneurysm acute February 11, 2025 8:24am [facility] Work Phone: 1(133) 879-782404-24-2025 Radiology Diagnostic study note [facility] Imaging Services [address] [place], [place] [id number] Abdomen W/WO IV Contrast MR#: [id number] Acct: [id number] Name: ALIX PALMER Rep #: [id number] : 1975 F 49 From: Devin Crockett DO PCP: Dr. Lesli Márquez, Status: RE G CLI Study:Abdomen W/WO IV Contrast Date of Exam: 02/10/25 Exam# [id number] Ordering Dr: Matt Márquez DO PROCEDURE: ABDOMEN [...] SHERLYN CC: Dr. Lesli Márquez, DO ~ Junior Database Administrator: Signed [facility] assessment information available [facility] Work Phone: Evaluation note* Diagnosis Other abnormal glucose documented in this encounter [facility] Work Phone: Hospital Discharge instructions Additional [...] on your liver. Zofran as needed for nausea.[facility] Work Phone: [facility] Work Phone: Hospital Discharge instructions Additional Instructions Get any [id number] nasal decongestant spray containing oxymetazoline or phenylephrine. [...] couple times a week if you are able.[facility] Work Phone: Instructions* Name Dates Details Patient Instructions Indication:Non-smoker Start:11-Mar-2022 Instruction Type:Provider Instructions for Treatment How to Access Health Informa tion Online using Patient Portal and [employer] Apps Indication:Non-smoker Start:11-Mar-2022 Instruction Type:Patient Education [facility] Work Phone: [facility]* Name Dates Details Patient Instructions Indication:Non-smoker Start:11-Mar-2022 Instruction Type:Provider Instructions for Treatment How to Access Health Informa tion Online using Patient Portal and [employer] Apps Indication:Non-smoker Start:11-Mar-2022 Instruction Type:Patient Education [facility] Work Phone: [facility]* Name Dates Details Patient Instructions Indication:Non-smoker Start:28-Mar-2022 Instruction Type:Provider Instructions for Treatment How to Access Health Informa tion Online using Patient Portal and [employer] Apps Indication:Non-smoker Start:28-Mar-2022 Instruction Type:Patient Education Patient [...] Informa tion Online using Patient Portal and [employer] Apps Indication:BMI 40.0-44.9, adult Start:10-Jul-2022 Instruction Type:Patient Education Patient Instructions Indication:Morbid obesity Start:16-May-2022 Instruction Type:Provider Instructions for Treatment How to Access Health Informa tion Online using Patient Portal and [employer] Apps Indication:Morbid obesity Start:16-May-2022 Instruction Type:Patient Education Patient Instructions Indication:Non-smoker Start:28-Mar-2022 Instruction Type:Provider Instructions for Treatment How to Access Health Informa tion Online using Patient Portal and [employer] Apps Indication:Non-smoker Start:28-Mar-2022 Instruction Type:Patient Education Patient Instructions Indication:Non-smoker Start:11-Mar-2022 Instruction Type:Provider Instructions for Treatment How to Access Health Informa tion Online using Patient Portal and [employer] Apps Indication:Non-smoker Start:11-Mar-2022 Instruction Type:Patient Education [...] for referral (narrative)No reason for referral [facility] Work Phone: Reason for visit Narrative* Imaging (Routine) - Pending Review Specialty Diagnoses / Procedures Referred By Contac t Referred To Contact Radiology Diagnoses Other abnormal glucose Procedures CT cardiac scoring wo IV contrast Lesli Márquez DO [address] [facility] [address] [place] [address] Phone: tel: fax: Referral ID Status Reason Start Date Expiration Date Visits Requested Visits Authorized [id number] Pending Review Perform Procedure 11/16/2024 11/16/[address] [facility] Work Phone: Chief Complaint and Reason for [...] March 02, 2022 7 :37am Power of Channel Marketing Program Manager No March 02, 2022 7:37am Advance Directive Response Recorded Date/ Time Living Will No August 14 1:46pm Power of Channel Marketing Program Manager No August 14, 2022 1:46pm Advance Directive Response Recorded Date/ Time Living Will No August 14 12:46pm Power of Channel Marketing Program Manager No August 14, 2022 12:46pm Summary Purpose [...] DATE CREATED AUTHOR AUTHOR'S ORGANIZ ATION 10/04/2023 [facility] DATE CREATED AUTHOR AUTHOR'S ORGANIZ ATION 01/02/[address] [facility] DATE CREATED AUTHOR AUTHOR'S ORGANIZ ATION 08/06/2025 [facility] y [facility] Care Teams (unrecognized sec tion and [...] Pr ovider, Attending Provider, Referring Provider Active Handle Bender Relationship Specialty Start Date End Date Lesli Márquez DO [address] [facility] [address] [place] [address] PCP - General Internal Medicine 12/15/24 Team [...] BE BASED ON THE PRIMARY CLINICAL RECORDS. INDOM [facility]. provides no warranty or guarantee of the accuracy or completeness of information in this document.
[2025-08-06 12:06] LABS: Vitamin D,25 Hydroxy 22.3 ng/mL (30-100)
[2025-08-09 19:08] LABS: CHOLESTEROL TOTAL 199 mg/dL (100-199); HDL-C 48 mg/dL (>39); HDL-P TOTAL 26.4 umol/L (>=30.5); INSULIN RESISTANCE SCORE 43 (<=45); LDL SIZE 22.2 nm (>20.5); LDL-C (NIH CALC) 134 mg/dL (0-99); LDL-P 1441 nmol/L (<1000); SMALL LDL-P 174 nmol/L (<=527)
== END | disposition home or self-care (01) ==
PROVIDERS: PCP Internal Medicine; Referring Provider Internal Medicine; Visit Provider Internal Medicine
DX: E78.2 Mixed hyperlipidemia (principal); E55.9 Vitamin D deficiency, unspecified; R73.09 Other abnormal glucose
CPT/HCPCS: 36415; 80061; 82306; 83036; 83695; 83704

== ENCOUNTER → 2025-10-11 | Outpatient (CLI) | payer OTHER, SELFPAY ==
--- OUTSIDE RECORDS SUMMARY | 2025-10-11 08:46 | XMS RPT_ITS | CCD ---
Author Organization [facility] Care Team Providers Care Ux Researcher Name Role Phone Lesli Márquez DO Unavailable Melo RN, Octavia Unavailable Unavailable Erick ARRIOLA, Violet Villafuerte Unavailable Unavailable [facility] Aide, System Unavailable Unavailable Heena Maciel Unavailable Unavailable Michael RECYCLER FORKLIFT DRIVER TRUCK DRIVER, Saleem Unavailable Unavailable Unavailable Unavailable [facility] CLAIMS SPECIALIST, Sofiya Unavailable Unavailable Slarb RECYCLER FORKLIFT DRIVER TRUCK DRIVER, Alycia Unavailable Unavailable [place] CLAIMS SPECIALIST, Kayela Unavailable Unavailable Lesli Márquez DO Unavailable Andrea Cordero MD Unavailable Lesli Márquez DO Attending Unavailable Lesli Márquez DO Consulting Unavailable Unavailable Unavailable [facility] Attending Unavailable LESLI MÁRQUEZ Primary Care Unavailable Lesli Márquez DO Primary Care Provider [phone] LESLI MÁRQUEZ Referring Unavailable LESLI MÁRQUEZ Primary Care Unavailable Dr. Lesli Márquez DO Primary Care Provider Dr. Lesli Márquez DO Attending Provider [phone] Dr. Lesli Márquez DO Referring Provider Gardenia Christensen Attending Provider Dr. Lesli Márquez DO Primary Care Provider Dr. Lesli Márquez DO Attending Provider [phone] Dr. Lesli Márquez DO Referring Provider Lesli Márquez Attending Unavailable Lesli Márquez Referring Unavailable Lesli Márquez Primary Care Unavailable Darinel, Lesli Primary Care Unavailable Darinel, Lesli Attending Unavailable Darinel, Lesli Referring Unavailable Darinel, Lesli Attending Unavailable Darinel, Lesli Referring Unavailable Darinel, Lesli Primary Care Unavailable Dawson, Gardenia Attending Unavailable Darinel, Lesli Referring Unavailable Darinel, Lesli Primary Care Unavailable Darinel, Lesli Attending Unavailable Darinel, Lesli Referring Unavailable Darinel, Lesli Primary Care Unavailable Darinel, Lesli Attending Unavailable Darinel, Lesli Referring Unavailable Darinel, Lesli Primary Care Unavailable Dawson, Gardenia Attending Unavailable Dawson, Gardenia Referring Unavailable Darinel, Lesli Primary Care Unavailable Allergies Allergy Classification Reported Allergen(s) Allergy Type Date of Onset Reaction(s) Facility (20 sources) Ketorolac; Translations: [TORADOL ORAL, 10MG (Oral Tablet)] Drug Allergy [address] [facility] Work Phone: Comment on above: kidneys shut down SHUTS MY KIDNEYS DO WN (20 sources) beef allergenic extract Drug Allergy [facility] Work Phone: Comment on above: Nausea (1 source) ALLERGIES NOT ON FILE; Translations: [ALLERGIES NOT ON FILE] Propensity to adverse reactions (disorder) [facility] 2 Repository (3 sources) Latex Allergy to substance [address] [facility] (3 sources) Beef Containing Products Allergy to substance 4 [facility] Comment on above: ITCHING, SWELLING, N /V/D (1 source) Ketorolac Drug Allergy 4 [facility] Repository (1 source) Latex Drug allergy (disorder) 5 [facility] Repository (1 source) Beef Containing Products Drug allergy (disorder) 4 [facility] Repository Medications Current Medications Medication Drug [...] Start: 08-14-2022 take 1 tablet by ramos once daily Multivitamin Active 1 TABLET PO DAILY August 14, 2022 12:00am MULTIVITAMIN (Or al Liquid) for 0 days Refills: 0 Ordered: 10-Jul-2022 Nguyen CLAIMS SPECIALIST, Kayela Active MULTIVITAMIN (Or al Liquid) for 0 days Refills: 0 Ordered: 16-May-2022 Gravius CLAIMS SPECIALIST, Sofiya Active MULTIVITAMIN (Or al Liquid) for 0 days Refills: 0 Ordered: 11-Mar-2022 Slarb RECYCLER FORKLIFT DRIVER TRUCK DRIVER, Alycia Active MULTIVITAMIN (Or al Liquid) for 0 days Refills: 0 Ordered: 20-Jul-2009 Melo RN, Octavia Active ondansetron 4 mg disintegrating oral tablet [...] Quantity: 30 {Cream} Refills: 0 Ordered: 28-Mar-2022 Doreen SANDRAIngain Start : 24-May-2010 End : 28-Mar-2022 Discontinued Comments: This order discontinued per [facility]. Comment on above: use under axilla / a ffected area This order discontin ued per [facility]. CALCIUM & MAGNESIUM CARBONATES, 311-232MG (Oral Capsule) (20 sources) End: 03-11-2022 take 1 capsule by mouth three times daily CALCIUM & MAGNESIUM CARBONATES, 311-232MG (Oral Capsule) 1 tid for 0 days Refills: 0 Ordered: 11-Mar-2022 Alycia Maldonado LPN End : 11-Mar-2022 Discontinued Comments: This order discontinued per [facility]. take 1 capsule by mo [facility] three times daily CALCIUM & MAGNESIUM [...] by mouth every week Drisdol 1.25 MG (22745 UT) Oral Capsule tad Capsule weekly for 0 days Quantity: 8 {Capsule} Refills: 4 Ordered: 11-Mar-2022 Alycia Maldonado LPN Start : 24-May-2010 End : 11-Mar-2022 Inactive Comments: 1 tab 2 x week for 4 weeks then 1 tab weekly End: 08-16-2022 take 1 tablet by mouth every week ERGOCALCIFEROL, 34002SV (PO Tab) 1 qo week for 0 days Refills: 0 Ordered: 16-Aug-2022 Saleem Rodriguez LPN End : 16-Aug-2022 Discontinued Comments: This order discontinued per [facility]. Comment on above: 1 tab 2 x week for 4 weeks then 1 tab weekly This order discontin ued per [facility]. 168 hr ethinyl estradiol 0.27143 mg/hr / norelgestromin 0.96094 mg/hr transdermal system (20 sources) Progestin, Estrogen Start: 008 End: 022 apply 1 dose transdermal route every week ORTHO EVRA, 150-20MCG/24HR (Transdermal Patch Weekly) 1 Patch Weekly q week for 0 days Refills: 0 Ordered: 11-Mar-2022 Erica CHAMBERSAlycia Start : 27-Jul-2008 End : 11-Mar-2022 Discontinued Comments: This order discontinued per [facility]. Comment on above: This order discontin ued per [facility]. fluconazole 150 mg oral tablet (20 sources) [...] Refills: 0 Ordered: 24-Jun-2023 Darinel VIRK Lesli Mendoza DO Start : 24-Jun-2023 Active Start: 08-14-2022 End: [...] -. Tyrosine-Acetylcy steine (Adrenamax) 400-133 mg capsule (3 [...] lipid metabolism (20 sources) Hyperlipidemia; Translations: [Hyperlipidemia] Onset: 08-18-2025 07-25-2015 Chronic Comment on above: diet exercise [...] [Thoracic aortic aneurysm, without rupture, unspecified] Onset: 08-16-2025 Viral infection (20 sources) Herpes zoster; Translations: [...] Test Name Value Interpretation Reference Range Facility L3410.9992on 08-10-2025 [facility] COMMENT Normal . [facility] Comment on above: Order Comment: SER/R T *TRANSFER TUBE* 002252 APO B Result Comment: Test Ordered: [id number] Apolipoprotein B Apolipoprotein B 102 [H ] mg/dL Reference Range: <90 Desirable < 90 Borderline High 90 - 99 High 100 - 130 Very High >130 ASCVD RISK THERAPEUTIC TARGET CATEGORY APO B (mg/dL) Very High Risk <80 (if extreme risk <70) High Risk <90 Moderate Risk <90 Performed at: - [address] [id number] Armature Bander: Rosario Gordon MD, Phone: [phone] Performed at: [facility] [address] [id number] Armature Bander: Ramon Bell PhD, Phone: [phone] Performed By: #### L 506.1001, L3400.4600, L3500.0000, L3410.9992, L501.9985 #### [facility] [address] [place], [address] NMR Lipoprofileon 08-09-2025 Cholesterol [Mass/Vol] 199 mg/dL Normal 100-199 [facility] Comment on above: Order Comment: Test( s) 775605-KTX-D; 951395-TBJ-Y; 989032-Urilqnmzsrfre; 720580-Ntdcfofpdtk, Total; 240582-SPV-C (Total); 114759- Small LDL-P; 705001-HWC Size; 989855-UF-FX Score was developed and its performance characteristics determined by [facility]. It has not been cleared or approved by the Food and Drug Administration. Performed By: #### L 506.1001, L3400.4600, L3500.0000, L3410.9992, L501.9985 #### [facility] [address] [place], [address] Cholesterol in HDL [Mass/Vol] 48 mg/dL Normal >39 [facility] Comment on above: Order Comment: Test( s) 905204-TIV-R; 486552-THW-V; 283438-Primbrtptxdey; 575723-Zmnbdlgkdej, Total; 924639-WXZ-G (Total); 197802- Small LDL-P; 186604-CVK Size; 186155-OU-XT Score was developed and its performance characteristics determined by [facility]. It has not been cleared or approved by the Food and Drug Administration. Performed By: #### L 506.1001, L3400.4600, L3500.0000, L3410.9992, L501.9985 #### [facility] [address] [place], [address] Cholesterol in LDL [Mass/Vol] 134 mg/dL Abnormal 0-99 [facility] Comment on above: Order Comment: Test( s) 225843-VHJ-M; 958737-YXO-S; 248492-Lrpyustgtwrcm; 180637-Xsulxmnqjdz, Total; 657893-III-T (Total); 339439- Small LDL-P; 755661-TGN Size; 327062-UN-XF Score was developed and its performance characteristics determined by [facility]. It has not been cleared or approved by the Food and Drug Administration. Result Comment: Opti mal < 100 Above optimal 100 - 129 Borderline 130 - 159 High 160 - 189 Very high > 189 Performed By: #### L 506.1001, L3400.4600, L3500.0000, L3410.9992, L501.9985 #### [facility] [address] [place], [address] HDL-P TOTAL 26.4 umol/L Abnormal >=30.5 [facility] Comment on above: Order Comment: Test( s) 579262-NGR-F; 181397-AWK-J; 959140-Qtajcwcqcscka; 813253-Jrgoqluimjn, Total; 936929-ULT-B (Total); 072277- Small LDL-P; 919028-IKS Size; 347287-DN-UQ Score was developed and its performance characteristics determined by [facility]. It has not been cleared or approved by the Food and Drug Administration. Performed By: #### L 506.1001, L3400.4600, L3500.0000, L3410.9992, L501.9985 #### [facility] [address] [place], [place], [id number] (562) INS. RES. SCORE 43 Normal <=45 [facility] Comment on above: Order Comment: Test( s) 294952-QFQ-L; 248628-KQR-C; 088273-Vscuqcegtcgdn; 039758-Xqevibsylaa, Total; 744752-LNK-L (Total); 186283- Small LDL-P; 047181-TWD Size; 490258-CC-CH Score was developed and its performance characteristics determined by [facility]. It has not been cleared or approved by the Food and Drug Administration. Result Comment: INSU JANIS RESISTANCE MARKER <--Insulin Sensitive Insulin Resistant--> Percentile in Reference Population Insulin Resistance Score LP-IR Score Low 25th 50th 75th High <27 27 45 63 >63 LP-IR Score is inaccurate if patient is non-fasting. The LP-IR score is a laboratory developed index that has been associated with insulin resistance and diabetes risk and should be used as one component of a physician's clinical assessment. Performed at: [address] [id number] Armature Bander: Rosario Gordon MD, Phone: [phone] Performed By: #### L 506.1001, L3400.4600, L3500.0000, L3410.9992, L501.1670 #### [facility] [address] [place], [place], [address] LDL SIZE 22.2 nm Normal >20.5 [facility] Comment on above: Order Comment: Test( s) 652644-PKC-B; 621326-TBG-F; 960712-Blpxsdhumfmmo; 777018-Ggqurvqnluw, Total; 958695-QZB-Y (Total); 061666- Small LDL-P; 830972-TGI Size; 845189-VP-UL Score was developed and its performance characteristics determined by [employer]. It has not been cleared or approved by the Food and Drug Administration. Result Comment: INTERPRETATIVE INFORMATION PARTICLE CONCENTRATION AND SIZE <--Lower CVD Risk Higher CVD Risk--> LDL AND HDL PARTICLES Percentile in Reference Population HDL-P (total) High 75th 50th 25th Low >34.9 34.9 30.5 26.7 <26.7 Small LDL-P Low 25th 50th 75th High <117 117 527 839 >839 LDL Size <-Large (Pattern A)-> <-Small (Pattern B)-> 23.0 20.6 20.5 19.0 Small LDL-P and LDL Size are associated with CVD risk, but not after LDL-P is taken into account. Performed By: #### L 506.1001, L3400.4600, L3500.0000, L3410.9992, L501.9985 #### [facility] [address] [place], [address] LDL-P 1441 nmol/L Abnormal <1000 [facility] Comment on above: Order Comment: Test( s) 844034-MVG-U; 494930-EBL-N; 403326-Aclrbrhbwdqki; 499210-Xaixcpollje, Total; 738364-RZR-A (Total); 289985- Small LDL-P; 438908-NLQ Size; 965424-MG-MR Score was developed and its performance characteristics determined by [employer]. It has not been cleared or approved by the Food and Drug Administration. Result Comment: Low < 1000 Moderate 1000 - 1299 Borderline-High 1300 - 1599 High 1600 - 2000 Very High > 2000 Performed By: #### L 506.1001, L3400.4600, L3500.0000, L3410.9992, L501.9985 #### [facility] [address] [place], [address] SMALL LDL-P 174 nmol/L Normal <=527 [facility] Comment on above: Order Comment: Test( s) 765614-OHA-O; 487075-DRA-K; 641752-Iheqiyprdimjy; 270600-Bioborhouco, Total; 083099-BZP-H (Total); 214290- Small LDL-P; 617103-HER Size; 766784-PH-EC Score was developed and its performance characteristics determined by [employer]. It has not been cleared or approved by the Food and Drug Administration. Performed By: #### L 506.1001, L3400.4600, L3500.0000, L3410.9992, L501.9985 #### [facility] [address] [place], [address] Triglyceride [Mass/Vol] 94 mg/dL Normal 0-149 [facility] Comment on above: Order Comment: Test( s) 050034-RYP-A; 912901-WKM-W; 815292-Obmahmuipapqx; 512490-Xqwxbewqiis, Total; 506730-KVZ-H (Total); 594530- Small LDL-P; 146319-DGV Size; 007727-SC-AY Score was developed and its performance characteristics determined by [facility]. It has not been cleared or approved by the Food and Drug Administration. Performed By: #### L 506.1001, L3400.4600, L3500.0000, L3410.9992, L501.9985 #### [facility] [address] [facility] [place], [address] Lipoprotein Aon 08-08-2025 Lipoprotein a [Moles/Vol] 277.5 nmol/L Abnormal <75.0 [facility] Comment on above: Order Comment: Test( s) 550732-Mfxexioaqzt (a) was developed and its performance characteristics determined by [facility]. It has not been cleared or approved by the Food and Drug Administration. Result Comment: Resu lts confirmed on dilution. Note: Values greater than or equal to 75.0 nmol/L may indicate an independent risk factor for CHD, but must be evaluated with caution when applied to non- populations due to the influence of genetic factors on Lp(a) across ethnicities. Performed at: [facility] [address] [id number] Armature Bander: Ramon Bell PhD, Phone: [phone] Performed By: #### L 506.1001, L3400.4600, L3500.0000, L3410.9992, L501.9985 #### [facility] [address] [facility] [place], [address] Hemoglobin A1con 08-06-2025 HbA1c (Bld) [Mass fraction] 5.8 % High <=5.6 [facility] Comment on above: Result Comment: Norm al < 5.7 % Prediabetic 5.7 - 6.4 % Diabetic >or= 6.5 % Please note range changes. Performed By: #### L 506.1001, L3400.4600, L3500.0000, L3410.9992, L501.9985 #### [facility] [address] [facility] [place], [address] Vitamin D,25 Hydroxyon 08-06 Vitamin D 25-OH 22.3 ng/mL Low 30-100 [facility] Comment on above: Result Comment: Deloris min D Status Deficiency: <20 ng/mL (50nmol/L) Insufficiency: 20-30 ng/mL (50-75 nmol/L) Sufficiency: 30-100 ng/mL (75-250 nmol/L) Toxicity: >100 ng/mL (>250 nmol/L) Performed By: #### L 506.1001, L3400.4600, L3500.0000, L3410.9992, L501.9985 #### [facility] [address] [facility] [place], [place], [address] CTA Chest W/WO Contraston CTA Chest W/WO Contrast [facility] Imaging Services [address] [place], [place] [address] CTA Chest W/WO Contrast MR#: [id number] Acct: [id number] Name: ALIX PALMER Rep #: [id number] : 1975 F 49 From: Glenn Vallejo MD PCP: Dr. Lesli Márquez, Status: REG CLI Study: CTA Chest W/WO Contrast Date of Exam: 07/28/25 Exam# [id number] Ordering Dr: Gardenia Dawson PROCEDURE: CTA CHEST [...] evidence of acute cardiopulmonary pathology. Reading Location: [place] [address] CC: BYRON Tovar; Dr. Lesli Márquez DO Concession Supervisor: Signed Normal [facility] Bone Survey Comp(Axial Appen d)on 04-12-2025 Bone Survey Comp(Axial Append) [facility] Imaging Services [address] [place], [place] [address] Bone Survey Comp(Axial Append) MR#: [id number] Acct: [id number] Name: ALIX PALMER Rep #: [id number] : 1975 F 49 From: Adolfo valencia MD PCP: Dr. Lesli Márquez DO Status: REG CLI Study: Bone Survey Comp(Axial Append) Date of Exam: 0 04/12/25 Exam# [id number] Ordering Dr: Lesli Márquez DO PROCEDURE: BONE SURVEY COMP(AXIAL APPEND) 04/12/2025 REASON FOR EXAM: MONOCLONAL GAMMOPATHIES F, age 49 y/o . TECHNIQUE: Skeletal survey. COMPARISON: None. FINDINGS: No lytic or blastic aggressive bone lesion is identified. No fracture or dislocation is seen. No periosteal reaction is noted. Mild diffuse spondylosis. RAD/Bone Survey Comp(Axial Append) IMPRESSION: No suspicious bone lesion is identified. Reading Location: [place] [address] CC: Dr. Lesli Márquez DO Concession Supervisor: Signed Normal [facility] Hepatitis B Core Ab Totalon 03-23-2025 HEP B CORE,TOT Negative Normal Negative [facility] Comment on above: Result Comment: Perf ormed at: [facility] [id number] Armature Bander: Ramon Bell PhD, Phone: [phone] Performed By: #### L 506.1001, L3400.4600, L3500.0000, L3410.9992, L501.9985 #### [facility] [address] [place], [address] KAVON + Protein Elect, Serumon 03-23-2025 Albumin [Mass/Vol] 3.3 g/dL Normal 2.9-4.4 [facility] Comment on above: Order Comment: Test( s) 205075-IGJ-N; 004586-PCU-M; 434798-Jtfzipwvcxqwc; 339873-Jhiyiwgjvdf, Total; 211846-IZB-I (Total); 489307- Small LDL-P; 643233-EDD Size; 149117-TN-IG Score was developed and its performance characteristics determined by [employer]. It has not been cleared or approved by the Food and Drug Administration. Performed By: #### L 506.1001, L3400.4600, L3500.0000, L3410.9992, L501.9985 #### [facility] [address] [place], [address] Albumin/Globulin [Mass ratio] 0.9 {ratio} Normal 0.7-1.7 [facility] Comment on above: Order Comment: Test( s) 871219-WBH-I; 105882-YLJ-O; 932566-Fkzgaylmsnizc; 375031-Umpybcktixi, Total; 480531-STF-V (Total); 885985- Small LDL-P; 083407-STC Size; 927550-EI-FW Score was developed and its performance characteristics determined by [facility]. It has not been cleared or approved by the Food and Drug Administration. Performed By: #### L 506.1001, L3400.4600, L3500.0000, L3410.9992, L501.9985 #### [facility] [address] [facility] [place], [address] HITFC-0-BAKW 0.3 g/dL Normal 0.0-0.4 [facility] Comment on above: Order Comment: Test( s) 358552-YUX-V; 388451-YDP-Z; 607053-Uryfgilugjrmc; 132421-Woyrcdldjqc, Total; 800606-YKY-S (Total); 322482- Small LDL-P; 605810-XBU Size; 105842-AZ-UV Score was developed and its performance characteristics determined by [facility]. It has not been cleared or approved by the Food and Drug Administration. Performed By: #### L 506.1001, L3400.4600, L3500.0000, L3410.9992, L501.9985 #### [facility] [address] [place], [address] OAKAK-1-SPYB 0.8 g/dL Normal 0.4-1.0 [facility] Comment on above: Order Comment: Test( s) 672496-EBC-K; 328168-FMS-B; 542514-Yijtfkgyuhqzp; 758695-Vfosffrxohh, Total; 266311-KXN-A (Total); 316368- Small LDL-P; 454215-WSS Size; 866178-RX-ZA Score was developed and its performance characteristics determined by [facility]. It has not been cleared or approved by the Food and Drug Administration. Performed By: #### L 506.1001, L3400.4600, L3500.0000, L3410.9992, L501.9985 #### [facility] [address] [place], [address] BETA GLOBULIN 1.3 g/dL Normal 0.7-1.3 [facility] Comment on above: Order Comment: Test( s) 519458-KVS-E; 346443-TRV-X; 377563-Mzpqdhhmzbuaz; 568070-Zvhxhzhgojc, Total; 900242-BDP-I (Total); 628621- Small LDL-P; 626604-KOM Size; 035836-VE-QQ Score was developed and its performance characteristics determined by [facility]. It has not been cleared or approved by the Food and Drug Administration. Performed By: #### L 506.1001, L3400.4600, L3500.0000, L3410.9992, L501.9985 #### [facility] [address] [place], [address] GAMMA GLOBULIN 1.7 g/dL Normal 0.4-1.8 [facility] Comment on above: Order Comment: Test( s) 474764-QVS-R; 523030-MEV-E; 323500-Auxhgrnveqshy; 397346-Yvgyuzknipe, Total; 492753-CMR-G (Total); 799329- Small LDL-P; 481201-CNC Size; 174359-JJ-JO Score was developed and its performance characteristics determined by [facility]. It has not been cleared or approved by the Food and Drug Administration. Performed By: #### L 506.1001, L3400.4600, L3500.0000, L3410.9992, L501.9985 #### [facility] [address] [place], [address] Globulin (S) [Mass/Vol] 4.0 g/dL Abnormal 2.2-3.9 [facility] Comment on above: Order Comment: Test( s) 422183-NGC-Z; 079581-JUO-S; 711938-Bajgixpnxmchi; 056103-Zaxjrnwjvyb, Total; 855626-APU-E (Total); 649329- Small LDL-P; 871709-SHA Size; 771458-XK-CH Score was developed and its performance characteristics determined by [facility]. It has not been cleared or approved by the Food and Drug Administration. Performed By: #### L 506.1001, L3400.4600, L3500.0000, L3410.9992, L501.9985 #### [facility] [address] [place], [address] KAVON RESULT,S Comment Normal . [facility] Comment on above: Order Comment: Test( s) 571845-WAG-B; 794821-PVN-B; 249817-Izlpefmaafnxe; 472421-Wyzjoawkhvc, Total; 154819-FGC-V (Total); 669977- Small LDL-P; 276067-RTX Size; 308265-FE-LQ Score was developed and its performance characteristics determined by [facility]. It has not been cleared or approved by the Food and Drug Administration. Result Comment: No m onoclonality detected. Performed By: #### L 506.1001, L3400.4600, L3500.0000, L3410.9992, L501.9985 #### [facility] [address] [place], [address] IMMUNOGLOB A QN 380 mg/dL High 87-352 [facility] Comment on above: Order Comment: Test( s) 387517-XHP-Z; 270192-RTL-G; 177813-Hcfvlpbvnokxz; 682020-Gyfrzejeose, Total; 428741-JZT-I (Total); 082183- Small LDL-P; 633336-FUT Size; 366230-JZ-SY Score was developed and its performance characteristics determined by [facility]. It has not been cleared or approved by the Food and Drug Administration. Performed By: #### L 506.1001, L3400.4600, L3500.0000, L3410.9992, L501.9985 #### [facility] [address] [place], [address] IMMUNOGLOB G QN 1875 mg/dL High 586-1602 [facility] Comment on above: Order Comment: Test( s) 075001-NCX-K; 594473-ZLH-V; 214097-Bwvuqqfpdtuek; 072552-Ngvgyxklgzk, Total; 196404-IDI-N (Total); 039461- Small LDL-P; 441756-IIG Size; 701294-IL-PE Score was developed and its performance characteristics determined by [facility]. It has not been cleared or approved by the Food and Drug Administration. Performed By: #### L 506.1001, L3400.4600, L3500.0000, L3410.9992, L501.9985 #### [facility] [address] [place], [address] IMMUNOGLOB M QN 109 mg/dL Normal 26-217 [facility] Comment on above: Order Comment: Test( s) 878990-ERV-R; 171166-TCA-P; 414742-Owiimcdfbymrb; 838866-Wikrpixdjam, Total; 580262-PZB-X (Total); 902977- Small LDL-P; 246249-MMP Size; 903982-DT-PX Score was developed and its performance characteristics determined by [facility]. It has not been cleared or approved by the Food and Drug Administration. Performed By: #### L 506.1001, L3400.4600, L3500.0000, L3410.9992, L501.9985 #### [facility] [address] [place], [address] M-Terrance Not Observed Normal Not Observed [facility] Comment on above: Order Comment: Test( s) 771421-JQE-O; 807600-JJX-W; 072532-Myjwawczvjieu; 158252-Vajwyomvkcs, Total; 625901-MOU-H (Total); 895126- Small LDL-P; 323633-XUW Size; 953131-WE-YX Score was developed and its performance characteristics determined by [facility]. It has not been cleared or approved by the Food and Drug Administration. Performed By: #### L 506.1001, L3400.4600, L3500.0000, L3410.9992, L501.9985 #### [facility] [address] [place], [address] NOTE: Comment Normal . [facility] Comment on above: Order Comment: Test( s) 256865-GCS-P; 601315-PGL-I; 282809-Qkdbyetmfantm; 092517-Towjeupgrfg, Total; 113194-LRO-S (Total); 914646- Small LDL-P; 937740-LJM Size; 538281-GH-RP Score was developed and its performance characteristics determined by [facility]. It has not been cleared or approved by the Food and Drug Administration. Result Comment: Prot ein electrophoresis scan will follow via computer, mail, or director of coding delivery. Performed By: #### L 506.1001, L3400.4600, L3500.0000, L3410.9992, L501.9985 #### [facility] [address] [place], [place], [id number] Protein [Mass/Vol] 7.3 g/dL Normal 6.0-8.5 [facility] Comment on above: Order Comment: Test( s) 260470-LNF-R; 552093-NIJ-T; 822101-Bubzmwgabolmf; 615723-Apfohybxegq, Total; 330563-HED-H (Total); 769526- Small LDL-P; 271128-EYY Size; 174691-CF-ZZ Score was developed and its performance characteristics determined by [employer]. It has not been cleared or approved by the Food and Drug Administration. Performed By: #### L 506.1001, L3400.4600, L3500.0000, L3410.9992, L501.9985 #### [facility] [address] [place], [place], [id number] [place] Lambda Light Chainson 03-23-2025 FR KAPPA LT CHN 30.8 mg/L Abnormal 3.3-19.4 [facility] Comment on above: Performed By: #### L 506.1001, L3400.4600, L3500.0000, L3410.9992, L501.9985 #### [facility] [address] [place], [address] FR LAMBDA LT CH 20.6 mg/L Normal 5.7-26.3 [facility] Comment on above: Performed By: #### L 506.1001, L3400.4600, L3500.0000, L3410.9992, L501.9985 #### [facility] [address] [place], [address] KAPPA/LAMBDA % 1.50 Normal 0.26-1.65 [facility] Comment on above: Performed By: #### L 506.1001, L3400.4600, L3500.0000, L3410.9992, L501.9985 #### [facility] [address] [place], [address] L501.5101on 03-23-2025 GGTP 27 IU/L Normal 0-60 [facility] Comment on above: Performed By: #### L 506.1001, L3400.4600, L3500.0000, L3410.9992, L501.9985 #### [facility] [address] [place], [address] Urine Cultureon 03-21-2025 URC Mixed Gram Positive Organisms [place] Count 50,000-80,000 MIXC Mixed contaminants. Submit a new specimen if indicated. Normal [facility] Comment on above: Performed By: #### L 506.1001, L3400.4600, L3500.0000, L3410.9992, L501.9985 #### [facility] [address] [place], [address] Absolute lymphocyte countOrd ered By: Lesli Márquez on 03-19-2025 Lymphocytes Auto (Unsp spec) [#/Vol] 2.02 10*3/uL 0.83-4.51 [facility] Absolute neutrophil countOrd ered By: Lesli Márquez on 03-19-2025 Neutrophils (Bld) [#/Vol] 3.9 10*3/uL 2.0-7.7 [facility] Activated partial thrombopla stin time (aPTT) in platelet poor plasma by coagulation aOrdered By: Lesli Márquez on 03-19-2025 aPTT Coag (PPP) [Time] 23.8 s Low 24.1-36.2 [facility] Albumin Elph [Mass/Vol]Order ed By: Lesli Márquez on 03-19-2025 Albumin [Mass/Vol] 3.3 g/dL 2.9-4.4 [facility] Anion gap in Serum or Plasma Ordered By: Lesli Márquez on 03-19-2025 Anion gap [Moles/Vol] 11 mmol/L 5-15 [facility] Automated lymphocyte count a s percentage of total leukocytesOrdered By: Lesli Márquez on 03-19-2025 Lymphocytes/100 WBC Auto (Unsp spec) 29.0 % 19-41 [facility] BUN/creatinine ratioOrdered By: Lesli Márquez on 03-19-2025 Urea nitrogen/Creatinine [Mass ratio] 16.4 mg/mg 10-20 [facility] Basophil percentageOrdered B y: Lesli Márquez on 03-19-2025 Basophils/100 WBC (Bld) 0.9 % 0-1 [facility] Bilirubin Test strip Ql (U)O rdered By: Lesli Márquez on 03-19-2025 Bilirubin Ql (U) Negative Negative [facility] Bilirubin, totalOrdered By: Lesli Márquez on 03-19-2025 Bilirubin [Mass/Vol] 0.44 mg/dL 0.00-1.30 [facility] CBC W/Diff, Automatedon 02-19 Absolute Lymph 2.02 X10 3/uL Normal 0.83-4.51 [facility] Comment on above: Performed By: #### L 506.1001, L3400.4600, L3500.0000, L3410.9992, L501.9985 #### [facility] [address] [place], [address] Absolute Neut 3.9 X10 3/uL Normal 2.0-7.7 [facility] Comment on above: Performed By: #### L 506.1001, L3400.4600, L3500.0000, L3410.9992, L501.9985 #### [facility] [address] [place], [address] Basophils/100 WBC (Bld) 0.9 % Normal 0-1 [facility] Comment on above: Performed By: #### L 506.1001, L3400.4600, L3500.0000, L3410.9992, L501.9985 #### [facility] [address] [place], [address] Eosinophils/100 WBC (Bld) 2.3 % Normal 0-5 [facility] Comment on above: Performed By: #### L 506.1001, L3400.4600, L3500.0000, L3410.9992, L501.9985 #### [facility] [address] [place], [address] Erythrocyte distribution width (RBC) [Ratio] 14.0 % Normal 11.6-14.6 [facility] Comment on above: Performed By: #### L 506.1001, L3400.4600, L3500.0000, L3410.9992, L501.9985 #### [facility] [address] [place], [address] Hematocrit (Bld) [Volume fraction] 38.4 % Normal 37-47 [facility] Comment on above: Performed By: #### L 506.1001, L3400.4600, L3500.0000, L3410.9992, L501.9985 #### [facility] [address] [place], [address] Hemoglobin (Bld) [Mass/Vol] 12.4 g/dL Normal 12.0-15.0 [facility] Comment on above: Performed By: #### L 506.1001, L3400.4600, L3500.0000, L3410.9992, L501.9985 #### [facility] [address] [place], [address] IG% 0.300 Normal 0.0-0.9 [facility] Comment on above: Result Comment: IG% - Immature Granulocytes (promyelocytes, myelocytes and metamyelocytes) > 1% indicates that a LEFT SHIFT is Present. Performed By: #### L 506.1001, L3400.4600, L3500.0000, L3410.9992, L501.9985 #### [facility] [address] [place], [address] Lymphocytes/100 WBC (Bld) 29.0 % Normal 19-41 [facility] Comment on above: Performed By: #### L 506.1001, L3400.4600, L3500.0000, L3410.9992, L501.9985 #### [facility] [address] [place], [address] MCH (RBC) [Entitic mass] 28.4 pg Normal 27.0-32.0 [facility] Comment on above: Performed By: #### L 506.1001, L3400.4600, L3500.0000, L3410.9992, L501.9985 #### [facility] [address] [place], [address] MCHC (RBC) [Mass/Vol] 32.3 g/dL Normal 32-36 [facility] Comment on above: Performed By: #### L 506.1001, L3400.4600, L3500.0000, L3410.9992, L501.9985 #### [facility] [address] [place], [address] MCV (RBC) [Entitic vol] 88.1 fL Normal 81-99 [facility] Comment on above: Performed By: #### L 506.1001, L3400.4600, L3500.0000, L3410.9992, L501.9985 #### [facility] [address] [place], [address] Monocytes/100 WBC (Bld) 11.8 % High 0-10 [facility] Comment on above: Performed By: #### L 506.1001, L3400.4600, L3500.0000, L3410.9992, L501.9985 #### [facility] [address] [place], [address] Neutrophils/100 WBC (Bld) 55.7 % Normal 47-70 [facility] Comment on above: Performed By: #### L 506.1001, L3400.4600, L3500.0000, L3410.9992, L501.9985 #### [facility] [address] [place], [address] Nucleated RBC (Bld) [#/Vol] 0 10*3/uL Normal 0-5 [facility] Comment on above: Performed By: #### L 506.1001, L3400.4600, L3500.0000, L3410.9992, L501.9985 #### [facility] [address] [place], [address] Platelet mean volume (Bld) [Entitic vol] 10.9 fL Normal 6.2-12.0 [facility] Comment on above: Performed By: #### L 506.1001, L3400.4600, L3500.0000, L3410.9992, L501.9985 #### [facility] [address] [place], [address] Platelets (Bld) [#/Vol] 310 10*3/uL Normal 150-450 [facility] Comment on above: Performed By: #### L 506.1001, L3400.4600, L3500.0000, L3410.9992, L501.9985 #### [facility] [address] [place], [address] RBC (Bld) [#/Vol] 4.36 10*6/uL Normal 4.2-5.4 [facility] Comment on above: Performed By: #### L 506.1001, L3400.4600, L3500.0000, L3410.9992, L501.9985 #### [facility] [address] [place], [address] RDW SD 45.1 fl High 35.1-43.9 [facility] Comment on above: Performed By: #### L 506.1001, L3400.4600, L3500.0000, L3410.9992, L501.9985 #### [facility] [address] [place], [address] WBC (Bld) [#/Vol] 7.0 10*3/uL Normal 4.4-11.0 [facility] Comment on above: Performed By: #### L 506.1001, L3400.4600, L3500.0000, L3410.9992, L501.9985 #### [facility] [address] [place], [address] CRPon 03-19-2025 C-REACTIVE PROT 25.10 mg/L High 0.0-3.0 [facility] Comment on above: Performed By: #### L 506.1001, L3400.4600, L3500.0000, L3410.9992, L501.9985 #### [facility] [address] [place], [address] Carbon dioxide, total [Moles /volume] in Central venous bloodOrdered By: Lesli Márquez on 03-19-2025 CO2 [Moles/Vol] 22.6 mmol/L 21.0-32.0 [facility] Chloride assayOrdered By: Liliya patricknalini Darinel on 03-19-2025 Chloride [Moles/Vol] 102 mmol/L 98-108 [facility] Comprehensive Metabolic Prof ilon 03-19-2025 Albumin [Mass/Vol] 3.7 g/dL Normal 3.5-5.0 [facility] Comment on above: Performed By: #### L 506.1001, L3400.4600, L3500.0000, L3410.9992, L501.9985 #### [facility] [address] [place], [address] Albumin/Globulin [Mass ratio] 0.9 {ratio} Normal 0.9-2.4 [facility] Comment on above: Performed By: #### L 506.1001, L3400.4600, L3500.0000, L3410.9992, L501.9985 #### [facility] [address] [place], [address] ALK PHOS 118 U/L High 35-104 [facility] Comment on above: Performed By: #### L 506.1001, L3400.4600, L3500.0000, L3410.9992, L501.9985 #### [facility] [address] [place], [address] ALT [Catalytic activity/Vol] 20 U/L Normal <=34 [facility] Comment on above: Performed By: #### L 506.1001, L3400.4600, L3500.0000, L3410.9992, L501.9985 #### [facility] [address] [place], [address] AST [Catalytic activity/Vol] 27 U/L Normal <=31 [facility] Comment on above: Performed By: #### L 506.1001, L3400.4600, L3500.0000, L3410.9992, L501.9985 #### [facility] [address] [place], [address] Bilirubin [Mass/Vol] 0.44 mg/dL Normal 0.00-1.30 [facility] Comment on above: Performed By: #### L 506.1001, L3400.4600, L3500.0000, L3410.9992, L501.9985 #### [facility] [address] [place], [address] BUN/CRE 16.4 RATIO Normal 10-20 [facility] Comment on above: Performed By: #### L 506.1001, L3400.4600, L3500.0000, L3410.9992, L501.9985 #### [facility] [address] [place], [address] Calcium [Mass/Vol] 8.6 mg/dL Normal 7.6-11.0 [facility] Comment on above: Performed By: #### L 506.1001, L3400.4600, L3500.0000, L3410.9992, L501.9985 #### [facility] [address] [place], [address] Chloride [Moles/Vol] 102 mmol/L Normal 98-108 [facility] Comment on above: Performed By: #### L 506.1001, L3400.4600, L3500.0000, L3410.9992, L501.9985 #### [facility] [address] [place], [address] CO2 [Moles/Vol] 22.6 mmol/L Normal 21.0-32.0 [facility] Comment on above: Performed By: #### L 506.1001, L3400.4600, L3500.0000, L3410.9992, L501.9985 #### [facility] [address] [place], [address] Creatinine [Mass/Vol] 0.58 mg/dL Low 0.70-1.20 [facility] Comment on above: Performed By: #### L 506.1001, L3400.4600, L3500.0000, L3410.9992, L501.9985 #### [facility] [address] [place], [address] GAP 11 Normal 5-15 [facility] Comment on above: Performed By: #### L 506.1001, L3400.4600, L3500.0000, L3410.9992, L501.9985 #### [facility] [address] [place], [address] GFR/1.73 sq M.predicted among non-blacks MDRD (S/P/Bld) [Vol rate/Area] 112 mL/min/{1.73_m2} Normal >60 [facility] Comment on above: Result Comment: mL/m in/1.73m2 CKD-EPI Creatinine Equation (2020) Performed By: #### L 506.1001, L3400.4600, L3500.0000, L3410.9992, L501.9985 #### [facility] [address] [place], [address] Globulin (S) [Mass/Vol] 3.9 g/dL Normal 2.2-4.2 [facility] Comment on above: Performed By: #### L 506.1001, L3400.4600, L3500.0000, L3410.9992, L501.9985 #### [facility] [address] [place], [address] Glucose [Mass/Vol] 100 mg/dL High 70-99 [facility] Comment on above: Performed By: #### L 506.1001, L3400.4600, L3500.0000, L3410.9992, L501.9985 #### [facility] [address] [place], [address] Potassium [Moles/Vol] 4.1 mmol/L Normal 3.3-5.1 [facility] Comment on above: Performed By: #### L 506.1001, L3400.4600, L3500.0000, L3410.9992, L501.9985 #### [facility] [address] [place], [address] Sodium [Moles/Vol] 135 mmol/L Normal 133-145 [facility] Comment on above: Performed By: #### L 506.1001, L3400.4600, L3500.0000, L3410.9992, L501.9985 #### [facility] [address] [place], [address] T PROT 7.7 g/dL Normal 5.9-8.4 [facility] Comment on above: Performed By: #### L 506.1001, L3400.4600, L3500.0000, L3410.9992, L501.9985 #### [facility] [address] [place], [address] Urea nitrogen [Mass/Vol] 10 mg/dL Normal 4-19 [facility] Comment on above: Performed By: #### L 506.1001, L3400.4600, L3500.0000, L3410.9992, L501.9985 #### [facility] [address] [place], [address] Eosinophil percentageOrdered By: Lesli Márquez on 03-19-2025 Eosinophils/100 WBC (Bld) 2.3 % 0-5 [facility] Erythrocyte Sed Rateon 03-19 SED RATE 31 mm/hr High 0-30 [facility] Comment on above: Performed By: #### L 506.1001, L3400.4600, L3500.0000, L3410.9992, L501.9985 #### [facility] [address] [place], [address] Erythrocyte distribution wid th ratioOrdered By: Lesli Márquez on 03-19-2025 Erythrocyte distribution width (RBC) [Ratio] 14.0 % 11.6-14.6 [facility] Erythrocyte distribution wid th standard deviationOrdered By: Lesli Márquez on 03-19-2025 Erythrocyte distribution width (RBC) [Ratio] 45.1 fl High 35.1-43.9 [facility] Erythrocyte sedimentation ra teOrdered By: Lesli Márquez on 03-19-2025 ESR (Bld) [Velocity] 31 mm/h High 0-30 [facility] Folate [Moles/volume] in Ser um or PlasmaOrdered By: Lesli Márquez on 03-19-2025 Folate [Moles/Vol] 16.30 ng/mL 4.60-34.80 [facility] Folates,Serum (Folic Acid)on 03-19-2025 FOLATES,SERUM 16.30 ng/mL Normal 4.60-34.80 [facility] Comment on above: Order Comment: Test( s) 530710-Zvzuehdlufn (a) was developed and its performance characteristics determined by [employer]. It has not been cleared or approved by the Food and Drug Administration. Performed By: #### L 506.1001, L3400.4600, L3500.0000, L3410.9992, L501.9985 #### [facility] [place], [address] Gamma glutamyl transferase ( GGT) measurementOrdered By: Lesli Márquez on 03-19-2025 Amylase [Catalytic activity/Vol] 27 U/L 0-60 [facility] Glomerular filtration rate ( GFR) estimation/1.73 sq m using serum, plasma, or whole bOrdered By: Lesli Márquez on 03-19-2025 GFR/1.73 sq M.predicted among non-blacks MDRD (S/P/Bld) [Vol rate/Area] 112 mL/min/{1.73_m2} >60 [facility] Comment on above: mL/min/1.73m2 CKD-EP I Creatinine Equation (2020) Hematocrit Auto (Bld) [Volum e fraction]Ordered By: Lesli Márquez on 03-19-2025 Hematocrit (Bld) [Volume fraction] 38.4 % 37-47 [facility] Hemoglobin A1con 03-19-2025 HbA1c (Bld) [Mass fraction] 5.3 % Normal <=5.6 [facility] Comment on above: Result Comment: Norm al < 5.7 % Prediabetic 5.7 - 6.4 % Diabetic >or= 6.5 % Please note range changes. Performed By: #### L 506.1001, L3400.4600, L3500.0000, L3410.9992, L501.9985 #### [facility] [address] [place], [address] Hemoglobin A1c percentageOrd ered By: Lesli Márquez on 03-19-2025 HbA1c (Bld) [Mass fraction] 5.3 % <5.7 [facility] Comment on above: Normal < 5.7 % Predi abetic 5.7 - 6.4 % Diabetic >or= 6.5 % Please note range changes. Hemoglobin measurementOrdere d By: Lesli Márquez on 03-19-2025 Hemoglobin (Bld) [Mass/Vol] 12.4 g/dL 12.0-15.0 [facility] Immature granulocytes/100 WB C Auto (Bld)Ordered By: Lesli Márquez on 03-19-2025 Immature granulocytes/100 WBC (Bld) 0.300 % 0.0-0.9 [facility] Comment on above: IG% - Immature Granu locytes (promyelocytes, myelocytes and metamyelocytes) > 1% indicates that a LEFT SHIFT is Present. International normalized rat io (INR) calculationOrdered By: Lesli Márquez on 03-19-2025 INR Coag (Bld) [Relative time] 1.0 {INR} [facility] Interpretation of serum or p lasma protein pattern by immunofixation (narrative resultOrdered By: Lesli Márquez on 03-19-2025 Protein Fractions Immunofixation Shiva [Interp] Not Observed g/dL Not Observed [facility] Ketones Test strip Ql (U)Ord ered By: Lesli Márquez on 03-19-2025 Ketones Ql (U) Negative Negative [facility] LDHon 03-19-2025 LDH 198 U/L Normal 84-246 [facility] Comment on above: Order Comment: Test( s) 720090-Fddqfkxnuco (a) was developed and its performance characteristics determined by [employer]. It has not been cleared or approved by the Food and Drug Administration. Performed By: #### L 506.1001, L3400.4600, L3500.0000, L3410.9992, L501.9985 #### [facility] [address] [place], [place], [id number] Laboratory - Chemistry and C hemistry - challengeOrdered By: Lesli Márquez on 03-19-2025 AST [Catalytic activity/Vol] 27 U/L <32 [facility] Lactate dehydrogenase (LDH) measurementOrdered By: Lesli Márquez on 03-19-2025 LDH [Catalytic activity/Vol] 198 U/L 84-246 [facility] MCV (mean corpuscular volume ) determinationOrdered By: Lesli Márquez on 03-19-2025 MCV (RBC) [Entitic vol] 88.1 fL 81-99 [facility] Magnesiumon 03-19-2025 Magnesium [Mass/Vol] 2.0 mg/dL Normal 1.5-2.2 [facility] Comment on above: Performed By: #### L 506.1001, L3400.4600, L3500.0000, L3410.9992, L501.9985 #### [facility] [address] [place], [place], [id number] Magnesium measurement (mass/ volume)Ordered By: Lesli Márquez on 03-19-2025 Magnesium (Unsp spec) [Mass/Vol] 2.0 mg/dL 1.5-2.2 [facility] Mean corpuscular hemoglobin (MCH) determinationOrdered By: Lesli Márquez on 03-19-2025 MCH (RBC) [Entitic mass] 28.4 pg 27.0-32.0 [facility] Mean corpuscular hemoglobin concentration (MCHC) determinationOrdered By: Lesli Márquez on 03-19-2025 MCHC (RBC) [Mass/Vol] 32.3 g/dL 32-36 [facility] Mean platelet volume determi nationOrdered By: Lesli Márquez on 03-19-2025 Platelet mean volume (Bld) [Entitic vol] 10.9 fL 6.2-12.0 [facility] Microscopic analysis of urin e for red blood cells (RBC)Ordered By: Lesli Márquez on 03-19-2025 Microscopic analysis of urine for red blood cells (RBC) 0-5 SEEN /hpf 0-5 [facility] Monocyte percentageOrdered B y: Lesli Márquez on 03-19-2025 Monocytes/100 WBC (Bld) 11.8 % High 0-10 [facility] Mucus LM Ql (Urine sed)Order ed By: Lesli Márquez on 03-19-2025 Mucus Ql (Urine sed) 1+ /hpf [facility] Neutrophil percentageOrdered By: eLsli Márquez on 03-19-2025 Neutrophils/100 WBC (Bld) 55.7 % 47-70 [facility] Nitrite Test strip Ql (U)Ord ered By: Lesli Márquez on 03-19-2025 Nitrite Ql (U) Negative Negative [facility] No Panel InformationOrdered By: Lesli Márquez on 03-19-2025 Addendum Document Comment . [facility] Comment on above: Protein electrophore sis scan will follow via computer,mail, or director of coding delivery. Nucleated red blood cell per centageOrdered By: Lesli Márquez on 03-19-2025 Nucleated RBC/100 WBC (Bld) [Ratio] 0 % 0-5 [facility] Partial Thromboplast Timeon 03-19-2025 aPTT Coag (Bld) [Time] 23.8 s Low 24.1-36.2 [facility] Comment on above: Performed By: #### L 506.1001, L3400.4600, L3500.0000, L3410.9992, L501.9985 #### [facility] [address] [place], [address] Phosphoruson 03-19-2025 Phosphate [Mass/Vol] 2.9 mg/dL Normal 2.7-4.5 [facility] Comment on above: Performed By: #### L 506.1001, L3400.4600, L3500.0000, L3410.9992, L501.9985 #### [facility] [address] [place], [address] Platelet countOrdered By: Liliya Máqruez on 03-19-2025 Platelets (Bld) [#/Vol] 310 10*3/uL 150-450 [facility] Potassium measurement (mass/ volume)Ordered By: Lesli Márquez on 03-19-2025 Potassium (Unsp spec) [Mass/Vol] 4.1 mmol/L 3.3-5.1 [facility] Protein Test strip Ql (U)Ord ered By: Lesli Márquez on 03-19-2025 Protein Ql (U) 30 mg/dl High Negative [facility] Prothrombin Time w/INRon INR Coag (PPP) [Relative time] 1.0 {INR} Normal [facility] Comment on above: Performed By: #### L 506.1001, L3400.4600, L3500.0000, L3410.9992, L501.9985 #### [facility] [address] [place], [address] PT Coag (PPP) [Time] 13.1 s Normal 11.7-14.9 [facility] Comment on above: Performed By: #### L 506.1001, L3400.4600, L3500.0000, L3410.9992, L501.9985 #### [facility] [address] [place], [address] Prothrombin timeOrdered By: Lesli Márquez on 03-19-2025 PT Coag (PPP) [Time] 13.1 s 11.7-14.9 [facility] RBC Auto (Bld) [#/Vol]Ordere d By: Lesli Márquez on 03-19-2025 RBC (Bld) [#/Vol] 4.36 10*6/uL 4.2-5.4 [facility] Retic Panelon 03-19-2025 IM RET FRACTION 20.90 High 3.00-15.90 [facility] Comment on above: Performed By: #### L 506.1001, L3400.4600, L3500.0000, L3410.9992, L501.9985 #### [facility] [address] [place], [address] RET-HE 31.7 pg Normal 30-35 [facility] Comment on above: Performed By: #### L 506.1001, L3400.4600, L3500.0000, L3410.9992, L501.9985 #### [facility] [address] [place], [address] Retic Count 1.72 High 0.5-1.5 [facility] Comment on above: Performed By: #### L 506.1001, L3400.4600, L3500.0000, L3410.9992, L501.9985 #### [facility] [address] [place], [address] Reticulocyte hemoglobin equi valent (RET-He) measurementOrdered By: Lesli Márquez on 03-19-2025 Hemoglobin (Reticulocytes) [Entitic mass] 31.7 pg 30-35 [facility] Reticulocytes Auto (Bld) [#/ Vol]Ordered By: Lesli Márquez on 03-19-2025 Reticulocytes/100 RBC (Bld) 1.72 % High 0.5-1.5 [facility] Serum creatinine measurement (mass/volume)Ordered By: Lesli Márquez on 03-19-2025 Creatinine [Mass/Vol] 0.58 mg/dL Low 0.70-1.20 [facility] Serum globulin measurement ( mass/volume)Ordered By: Lesli Márquez on 03-19-2025 Globulin (S) [Mass/Vol] 4.0 g/dL High 2.2-3.9 [facility] Serum glucose measurement (m ass/volume)Ordered By: Lesli Márquez on 03-19-2025 Glucose [Mass/Vol] 100 mg/dL High 70-99 [facility] Serum hepatitis B virus core antibody detectionOrdered By: Lesli Márquez on 03-19-2025 HBV core Ab Ql (S) Negative Negative [facility] [facility] Comment on above: Performed at: [address] [id number] Director: Ramon Bell PhD, Phone: [phone] Serum immunoglobulin kappa l ight chains/immunoglobulin lambda light chains mass ratioOrdered By: Lesli Márquez on 03-19-2025 Immunoglobulin light chains.kappa/Immunoglob ulin light chains.lambda (S) [Mass ratio] 1.50 0.26-1.65 [facility] Serum or plasma C reactive p rotein measurement (mass/volume)Ordered By: Lesli Márquez on 03-19-2025 CRP [Mass/Vol] 25.10 mg/L High 0.0-3.0 [facility] Serum or plasma IgA measurem ent (mass/volume)Ordered By: Lesli Márquez on 03-19-2025 IgA [Mass/Vol] 380 mg/dL High 87-352 [facility] Serum or plasma IgG measurem ent (mass/volume)Ordered By: Lesli Márquez on 03-19-2025 IgG [Mass/Vol] 1875 mg/dL High 586-1602 [facility] Serum or plasma alanine stein otransferase (ALT) measurementOrdered By: Lesli Márquez on 03-19-2025 ALT [Catalytic activity/Vol] 20 U/L <35 [facility] Serum or plasma albumin abbey urement (mass/volume)Ordered By: Lesli Márquez on 03-19-2025 Albumin [Mass/Vol] 3.7 g/dL 3.5-5.0 [facility] Serum or plasma albumin/glob ulin mass ratioOrdered By: Lesli Márquez on 03-19-2025 Albumin/Globulin [Mass ratio] 0.9 {ratio} 0.9-2.4 [facility] Serum or plasma alkaline álvaro sphatase measurementOrdered By: Lesli Márquez on 03-19-2025 ALP [Catalytic activity/Vol] 118 U/L High 35-104 [facility] Serum or plasma alpha 1 glob ulin measurement by electrophoresis (mass/volume)Ordered By: Lesli Márquez on 03-19-2025 Alpha 1 globulin Elph [Mass/Vol] 0.3 g/dL 0.0-0.4 [facility] Alpha 1 globulin Elph [Mass/Vol] 0.8 g/dL 0.4-1.0 [facility] Serum or plasma beta globuli n measurement by electrophoresis (mass/volume)Ordered By: Lesli Márquez on 03-19-2025 Beta globulin Elph [Mass/Vol] 1.3 g/dL 0.7-1.3 [facility] Serum or plasma calcium abbey urement (mass/volume)Ordered By: Lesli Márquez on 03-19-2025 Calcium [Mass/Vol] 8.6 mg/dL 7.6-11.0 [facility] Serum or plasma gamma globul in measurement by electrophoresis (mass/volume)Ordered By: Lesli Márquez on 03-19-2025 Gamma globulin Elph [Mass/Vol] 1.7 g/dL 0.4-1.8 [facility] Serum or plasma immunoelectr ophoresis interpretation (nominal result)Ordered By: Lesli Márquez on 03-19-2025 Interpretation IEP [Interp] Comment . [facility] Comment on above: No monoclonality det ected. Serum or plasma immunoglobul in kappa light chains measurement (mass/volume)Ordered By: Lesli Márquez on 03-19-2025 Immunoglobulin light chains.kappa [Mass/Vol] 30.8 mg/L High 3.3-19.4 [facility] Serum or plasma protein abbey urement (mass/volume)Ordered By: Lesli Márquez on 03-19-2025 Protein [Mass/Vol] 7.3 g/dL 6.0-8.5 [facility] Serum or plasma urea nitroge n measurement (mass/volume)Ordered By: Lesli Márquez on 03-19-2025 Urea nitrogen [Mass/Vol] 10 mg/dL 4-19 [facility] Serum or plasma uric acid me asurement (mass/volume)Ordered By: Lesli Márquez on 03-19-2025 Urate [Mass/Vol] 4.3 mg/dL 2.6-6.0 [facility] Comment on above: The drugs N-Acetylcy steine and Metamizole may falsely depress this assay. Sodium levelOrdered By: Genesis Máqruez on 03-19-2025 Sodium [Moles/Vol] 135 mmol/L 133-145 [facility] Squamous epithelial cells de tection in urine sediment by light microscopyOrdered By: Lesli Márquez on 03-19-2025 Epithelial cells.squamous LM Ql (Urine sed) 0-5 SEEN /hpf 5-10 [facility] T4 Free Directon 03-19-2025 T4 FREE DIRECT 1.00 ng/dL Normal 0.76-1.46 [facility] Comment on above: Order Comment: Test( s) 098410-Dwalqngowtt (a) was developed and its performance characteristics determined by [employer]. It has not been cleared or approved by the Food and Drug Administration. Performed By: #### L 506.1001, L3400.4600, L3500.0000, L3410.9992, L501.9985 #### [facility] [address] [place], [address] T4 freeOrdered By: Lesli Márquez on 03-19-2025 Free T4 [Mass/Vol] 1.00 ng/dL 0.76-1.46 [facility] TSH DL <= 0.005 mIU/L QnOrde red By: Lesli Márquez on 03-19-2025 TSH Qn 2.320 uIU/mL 0.300-4.[address] [facility] Thyroid Stim Hormone (TSH)on 03-19-2025 TSH 2.320 uIU/mL Normal 0.300-4.[address] [facility] Comment on above: Performed By: #### L 506.1001, L3400.4600, L3500.0000, L3410.9992, L501.9985 #### [facility] [address] [place], [address] Total proteinOrdered By: Genesis Márquez on 03-19-2025 Protein [Mass/Vol] 7.7 g/dL 5.9-8.4 [facility] Uric Acidon 03-19-2025 URIC 4.3 mg/dL Normal 2.6-6.0 [facility] Comment on above: Result Comment: The drugs N-Acetylcysteine and Metamizole may falsely depress this assay. Performed By: #### L 506.1001, L3400.4600, L3500.0000, L3410.9992, L501.9985 #### [facility] [address] [place], [address] Urinalysis, Completeon 03-19 BACTERIA 2+ /hpf Normal None Seen [facility] Comment on above: Order Comment: CLEAN CATCH Performed By: #### L 506.1001, L3400.4600, L3500.0000, L3410.9992, L501.9985 #### [facility] [address] [place], [address] EPI,SQUAMOUS 0-5 SEEN Normal 5-10 [facility] Comment on above: Order Comment: CLEAN CATCH Performed By: #### L 506.1001, L3400.4600, L3500.0000, L3410.9992, L501.9985 #### [facility] [address] [place], [address] Mucus Ql (Urine sed) 1+ /hpf Normal [facility] Comment on above: Order Comment: CLEAN CATCH Performed By: #### L 506.1001, L3400.4600, L3500.0000, L3410.9992, L501.9985 #### [facility] [address] [place], [address] RBC 0-5 SEEN Normal 0-5 [facility] Comment on above: Order Comment: CLEAN CATCH Performed By: #### L 506.1001, L3400.4600, L3500.0000, L3410.9992, L501.9985 #### [facility] [address] [place], [address] WBC 0-5 SEEN Normal 0-5 [facility] Comment on above: Order Comment: CLEAN CATCH Performed By: #### L 506.1001, L3400.4600, L3500.0000, L3410.9992, L501.9985 #### [facility] [address] [place], [address] Urine clarityOrdered By: Genesis Márquez on 03-19-2025 Clarity (U) Sl. Cloudy Clear [facility] Urine color determinationOrd ered By: Lesli Márquez on 03-19-2025 Color (U) Yellow Yellow [facility] Urine cultureOrdered By: Genesis Márquez on 03-19-2025 Bacteria identified Cx Nom (U) Positive Abnormal [facility] Urine glucose detectionOrder ed By: Lesli Márquez on 03-19-2025 Glucose Ql (U) Normal mg/dl Normal [facility] Urine leukocyte esterase det ection by dipstickOrdered By: Lesli Márquez on 03-19-2025 Leukocyte esterase Test strip Ql (U) Negative Negative [facility] Urine pHOrdered By: Lesli Márquez on 03-19-2025 pH (U) 6.5 [pH] 5.0 - 8.0 [facility] Urine sediment bacteria coun t by microscopy (number/high power field)Ordered By: Lesli Márquez on 03-19-2025 Bacteria LM.HPF (Urine sed) [#/Area] 2 /[HPF] None Seen [facility] Urine specific gravity measu rementOrdered By: Lesli Márquez on 03-19-2025 Specific gravity (U) [Rel density] 1.010 1.002-1.[address] [facility] Urine urobilinogen measureme ntOrdered By: Lesli Márquez on 03-19-2025 Urobilinogen Ql (U) Normal mg/dl Normal [facility] Vitamin B12on 03-19-2025 Cobalamin (Vitamin B12) [Mass/Vol] 609 pg/mL Normal 180-914 [facility] Comment on above: Performed By: #### L 506.1001, L3400.4600, L3500.0000, L3410.9992, L501.9985 #### [facility] [address] [place], [address] Vitamin B12 ser/plasOrdered By: Lesli Márquez on 03-19-2025 Cobalamin (Vitamin B12) [Mass/Vol] 609 pg/mL 180-914 [facility] White blood cell (WBC) count Ordered By: Lesli Márquez on 03-19-2025 WBC (Bld) [#/Vol] 7.0 10*3/uL 4.4-11.0 [facility] White blood cell countOrdere d By: Lesli Márquez on 03-19-2025 White blood cell count 0-5 SEEN /hpf 0-5 [facility] MR/BMS.BVSon 02-11-2025 MR/BMS.BVS [facility] Vascular Surgery 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 Márquez. She reports no prior known personal or family history of aneurysmal disease. She does not smoke. She does have hypertensi (more content not included)... Normal [facility] Abdomen W/WO IV Contraston 0 02-10-2025 Abdomen W/WO IV Contrast [facility] Imaging Services [address] [place] [address] Abdomen W/WO IV Contrast MR#: [id number] Acct: [id number] Name: ALIX PALMER Rep #: [id number] : 1975 F 49 From: Melchor Chairez PCP: Dr. Lesli Márquez DO Status: REG CLI Study: Abdomen W/WO IV Contrast Date of Exam: 5 Exam# [id number] Ordering Dr: Lesli Márquez DO PROCEDURE: ABDOMEN [...] characteristics consistent with a hemangioma. Reading Location: [facility] CC: Dr. Lesli Márquez DO Concession Supervisor: Signed Normal [facility] CT CARDIAC SCORING WO IV CON TRASTon 12-25-2024 CT CARDIAC SCORING WO IV CONTRAST Interpreted By: Slade Galvez, STUDY: CT CARDIAC SCORING WO IV CONTRAST; 12/25/2024 8:13 am INDICATION: Signs/Symptoms:CARDIAC SCREENING INTERMEDIATE CAD RISK ABNORMAL GLUCOSE TOLERANCE TEST. COMPARISON: None. ACCESSION NUMBER(S): [id number] ORDERING CLINICIAN: LESLI MÁRQUEZ TECHNIQUE: Using prospective [...] coronary heart disease events. According to the [employer] Clinical Expert Consensus [...] modify other non-lipid coronary risk factors. Reference: [place] P et al. Circulation. 2007; 115:402-426 MACRO: None Signed by: Slade Galvez 12/27/2024 8:21 AM Dictation workstation: [id number] [facility] Protein Electro.Ur-Randomon 11-10-2024 M-SPIKE,U [facility] Comment on above: Result Comment: NOT OBSERVED Performed By: #### L 500.4100, L3100.3450, L506.1000, L3600.4000 #### [facility] [address] [place], [address] Protein Electroph, Son 11-09 Albumin [Mass/Vol] 3.1 g/dL Normal 2.9-4.4 [facility] Comment on above: Performed By: #### L 500.4100, L3100.3450, L506.1000, L3600.4000 #### [facility] [address] [place], [address] Albumin/Globulin [Mass ratio] 0.7 {ratio} Normal 0.7-1.7 [facility] Comment on above: Performed By: #### L 500.4100, L3100.3450, L506.1000, L3600.4000 #### [facility] [address] [place], [address] ALPHA-1 GLOBUL 0.2 g/dL Normal 0.0-0.4 [facility] Comment on above: Performed By: #### L 500.4100, L3100.3450, L506.1000, L3600.4000 #### [facility] [address] [place], [address] ALPHA-2 GLOBUL 1.0 g/dL Normal 0.4-1.0 [facility] Comment on above: Performed By: #### L 500.4100, L3100.3450, L506.1000, L3600.4000 #### [facility] [address] [place], [address] BETA GLOBULIN 1.3 g/dL Normal 0.7-1.3 [facility] Comment on above: Performed By: #### L 500.4100, L3100.3450, L506.1000, L3600.4000 #### [facility] [address] [place], [address] GAMMA GLOBULIN 1.9 g/dL High 0.4-1.8 [facility] Comment on above: Performed By: #### L 500.4100, L3100.3450, L506.1000, L3600.4000 #### [facility] [address] [place], [address] Globulin (S) [Mass/Vol] 4.4 g/dL High 2.2-3.9 [facility] Comment on above: Performed By: #### L 500.4100, L3100.3450, L506.1000, L3600.4000 #### [facility] [address] [place], [address] INTERPRETATION Comment Normal . [facility] Comment on above: Result Comment: Prot ein electrophoresis scan will follow via computer, mail, or director of coding delivery. Performed By: #### L 500.4100, L3100.3450, L506.1000, L3600.4000 #### [facility] [address] [place], [address] M-SPIKE Not Observed Normal Not Observed [facility] Comment on above: Performed By: #### L 500.4100, L3100.3450, L506.1000, L3600.4000 #### [facility] [address] [place], [address] NOTE: Comment Normal . [facility] Comment on above: Result Comment: The SPE pattern reflects a polyclonal increase in gamma globulin. Hypergammaglobulinemia is found in a wide variety of infectious, non-infectious, and autoimmune disease states. Evidence of monoclonal protein is not apparent. Performed By: #### L 500.4100, L3100.3450, L506.1000, L3600.4000 #### [facility] [address] [place], [address] Protein [Mass/Vol] 7.5 g/dL Normal 6.0-8.5 [facility] Comment on above: Performed By: #### L 500.4100, L3100.3450, L506.1000, L3600.4000 #### [facility] [address] [place], [address] Vitamin D,25 Hydroxyon 11-08 Vitamin D 25-OH 34.7 ng/mL Normal [facility] Comment on above: Result Comment: Deloris min D 25(OH) Status Range Deficiency <20 ng/mL (50nmol/L) Insufficiency 20 - 30 ng/mL (50 - 75 nmol/L) Sufficiency 30 - 100 ng/mL (75 - 250 nmol/L) Toxicity >100 ng/mL (>250 nmol/L) Performed By: #### L 500.4100, L3100.3450, L506.1000, L3600.4000 #### [facility] [address] [place], [address] 13-WV-Mrutnje DOrdered By: Matt Márquez on 11-06-2024 Vitamin D 25-Hydroxy 34.7 ng/mL [facility] Comment on above: Vitamin D 25(OH) Sta tus Range Deficiency <20 ng/mL (50nmol/L) Insufficiency 20 - 30 ng/mL (50 - 75 nmol/L) Sufficiency 30 - 100 ng/mL (75 - 250 nmol/L) Toxicity >100 ng/mL (>250 nmol/L) Addendum DocumentOrdered By: Lesli Márquez on 11-06-2024 Protein Electrophoresis Note Comment . [facility] Comment on above: The SPE pattern refl ects a polyclonal increase in gammaglobulin. Hypergammaglobulinemia is found in a wide varietyof infectious, non-infectious, and autoimmune diseasestates. Evidence of monoclonal protein is not apparent. Albumin Elph (U) [Mass fract ion]Ordered By: Lesli Márquez on 11-06-2024 Urine Albumin 19.0 % . [facility] Albumin Elph [Mass/Vol]Order ed By: Lesli Márquez on 11-06-2024 Albumin [Mass/Vol] 3.1 g/dL 2.9-4.4 [facility] Albumin/Globulin Elph [Mass ratio]Ordered By: Lesli Márquez on 11-06-2024 Albumin/Globulin (PEP) 0.7 0.7-1.7 [facility] Alpha 1 globulin Elph (U) [M ass fraction]Ordered By: Lesli Márquez on 11-06-2024 Urine Onego-3-Cafthmfl 4.1 % . [facility] Alpha 2 globulin Elph (24H U ) [Mass fraction]Ordered By: Lesli Márquez on 11-06-2024 Urine Lqxjf-0-Ajsdtklae 22.7 % . [facility] Hsnao-9-nalbrtfe measurement by protein electrophoresisOrdered By: Lesli Márquez on 11-06-2024 Knltd-9-Qjvqqlqvk 0.2 g/dL 0.0-0.4 [facility] Meygl-2-xtncibso measurement by protein electrophoresisOrdered By: Lesli Márquez on 11-06-2024 Rskxc-3-Lxtyhucuc 1.0 g/dL 0.4-1.0 [facility] Beta globulin Elph (24H U) [ Mass fraction]Ordered By: Lesli Márquez on 11-06-2024 Urine Beta Globulin 26.4 % . [facility] Beta globulin Elph [Mass/Vol ]Ordered By: Lesli Márquez on 11-06-2024 Beta Globulins 1.3 g/dL 0.7-1.3 [facility] Gamma globulin Elph (24H U) [Mass fraction]Ordered By: Lesli Márquez on 11-06-2024 Urine Gamma Globulin 27.8 % . [facility] Gamma globulin measurement b y protein electrophoresisOrdered By: Lesli Márquez on 11-06-2024 Gamma Globulins 1.9 g/dL High 0.4-1.8 [facility] Globulin (S) [Mass/Vol]Order ed By: Lesli Márquez on 11-06-2024 Globulin (PEP) 4.4 g/dL High 2.2-3.9 [facility] High density lipoprotein (HD L) measurementOrdered By: Lesli Márquez on 11-06-2024 Cholesterol in HDL [Mass/Vol] 54 mg/dL >40 [facility] Comment on above: The drugs N-Acetylcy steine and Metamizole may falsely depress this assay. Reference Range HDL <40 mg/dL Low HDL Cholesterol HDL >or= 60 mg/dL High HDL Cholesterol Lipid Profileon 11-06-2024 Cholesterol [Mass/Vol] 207 mg/dL High 200 [facility] Comment on above: Result Comment: <200 mg/dL Desirable 200-240 mg/dL Borderline >240 mg/dL High Risk Performed By: #### L 500.4100, L3100.3450, L506.1000, L3600.4000 #### [facility] [address] [place], [address] Cholesterol in HDL [Mass/Vol] 54 mg/dL Normal [facility] Comment on above: Result Comment: The drugs N-Acetylcysteine and Metamizole may falsely depress this assay. Reference Range HDL <40 mg/dL Low HDL Cholesterol HDL >or= 60 mg/dL High HDL Cholesterol Performed By: #### L 500.4100, L3100.3450, L506.1000, L3600.4000 #### [facility] [address] [place], [address] Cholesterol in LDL [Mass/Vol] 119 mg/dL Normal 0-130 [facility] Comment on above: Performed By: #### L 500.4100, L3100.3450, L506.1000, L3600.4000 #### [facility] [address] [place], [address] Cholesterol in VLDL [Mass/Vol] 34 mg/dL Normal 5-40 [facility] Comment on above: Performed By: #### L 500.4100, L3100.3450, L506.1000, L3600.4000 #### [facility] [address] [place], [address] Triglyceride [Mass/Vol] 171 mg/dL Normal [facility] Comment on above: Result Comment: The drugs N-Acetylcysteine and Metamizole may falsely depress this assay. Serum Triglycerides Reference Interval Normal <150 mg/dL Borderline high 150 - 199 mg/dL High 200 - 499 mg/dL Very High > or = 500 mg/dL Performed By: #### L 500.4100, L3100.3450, L506.1000, L3600.4000 #### [facility] [address] [place], [address] Low density lipoprotein (LDL ) cholesterol measurementOrdered By: Lesli Márquez on 11-06-2024 Cholesterol in LDL [Mass/Vol] 119 mg/dL 0-130 [facility] Protein Fractions Elph [Inte rp]Ordered By: Lesli Márquez on 11-06-2024 Protein Electrophoresis Interpret Comment . [facility] Comment on above: Protein electrophore sis scan will follow via computer,mail, or director of coding delivery. Protein.monoclonal Elph (U) [Mass fraction]Ordered By: Lesli Márquez on 11-06-2024 Ur Protein Electrophoresis M-Terrance See comment [facility] Comment on above: NOT OBSERVED Protein.monoclonal Elph [Mas s/Vol]Ordered By: Lesli Márquez on 11-06-2024 Protein Electrophoresis M-Terrance Not Observed g/dL Not Observed [facility] Serum or plasma cholesterol measurement (mass/volume)Ordered By: Lesli Márquez on 11-06-2024 Cholesterol [Mass/Vol] 207 mg/dL High <200 [facility] Comment on above: <200 mg/dL Desirable 200-240 mg/dL Borderline >240 mg/dL High Risk Serum or plasma protein abbey urement (mass/volume)Ordered By: Lesli Márquez on 11-06-2024 Protein [Mass/Vol] 7.5 g/dL 6.0-8.5 [facility] Triglycerides measurementOrd ered By: Lesli Márquez on 11-06-2024 Triglyceride [Mass/Vol] 171 mg/dL <199 [facility] Comment on above: The drugs N-Acetylcy steine and Metamizole may falsely depress this assay.Serum Triglycerides Reference Interval Normal <150 mg/dL Borderline high 150 - 199 mg/dL High 200 - 499 mg/dL Very High > or = 500 mg/dL Urine protein measurement (m ass/volume)Ordered By: Lesli Márquez on 11-06-2024 Protein (U) [Mass/Vol] 8.7 mg/dL Not Estab. [facility] Very low density lipoprotein (VLDL) cholesterol measurementOrdered By: Lesli Márquez on 11-06-2024 VLDL Cholesterol 34 mg/dL 5-40 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 IOM ([place]ancy Gap of Medicine). 2010. Dietary reference intakes for calcium and D. [place]: The National Academies Press.2. Deshaun MF, Anshu FRANCISCO, Rodolfo PATEL, et al. Evaluation, treatment, and prevention of vitamin D deficiency: an Endocrine Society clinical practice guideline. JCEM. 2010; 96(6):1911-30. PATIENT WAS FASTINGP ERFORMED BY: JAYLIN [facility] [id number] RoadDublin [place] [id number] CBC W/AUTO DIFF WBC (96434)O rdered By: Corporate Development Officer on 03-13-2023 Basophils (Bld) [#/Vol] 0.1 10*3/uL Normal 0.0-0.2 [facility]; [facility] Work Phone: Comment on above: PATIENT WAS FASTINGP ERFORMED BY: JAYLIN [facility] [id number] [address]Dublin [place] [id number] Basophils/100 WBC (Bld) 1 % Normal [facility]; [facility] Work Phone: Comment on above: PATIENT WAS FASTINGP ERFORMED BY: JAYLIN [facility] [id number] [address]Dublin [place] [id number] Eosinophils (Bld) [#/Vol] 0.2 10*3/uL Normal 0.0-0.4 [facility]; [facility] Work Phone: Comment on above: PATIENT WAS FASTINGP ERFORMED BY: JAYLIN [facility] [id number] [place] [id number] Eosinophils/100 WBC (Bld) 3 % Normal [facility]; [facility] Work Phone: Comment on above: PATIENT WAS FASTINGP ERFORMED BY: JAYLIN [facility] [id number] [address] [place] [id number] Erythrocyte distribution width (RBC) [Ratio] 12.4 % Normal 11.7-15.4 [facility]; [facility] Work Phone: Comment on above: PATIENT WAS FASTINGP ERFORMED BY: JAYLIN [facility] [id number] [place] [id number] Hematocrit (Bld) [Volume fraction] 39.4 % Normal 34.0-46.6 [facility]; [facility] Work Phone: Comment on above: PATIENT WAS FASTINGP ERFORMED BY: [facility] [id number] [facility] [id number] Hemoglobin (Bld) [Mass/Vol] 13.6 g/dL Normal 11.1-15.9 [facility]; [facility] Work Phone: Comment on above: PATIENT WAS FASTINGP ERFORMED BY: [facility] [id number] [facility] [id number] Immature granulocytes (Bld) [#/Vol] 0.0 10*3/uL Normal 0.0-0.1 [facility]; [facility] Work Phone: Comment on above: PATIENT WAS FASTINGP ERFORMED BY: [facility] [id number] [facility] [id number] Immature granulocytes/100 WBC (Bld) 0 % Normal [facility]; [facility] Work Phone: Comment on above: PATIENT WAS FASTINGP ERFORMED BY: [address] [id number] Lymphocytes (Bld) [#/Vol] 2.6 10*3/uL Normal 0.7-3.1 [facility]; [facility] Work Phone: Comment on above: PATIENT WAS FASTINGP ERFORMED BY: [facility] Oggyhi0727 [facility] [id number] Lymphocytes/100 WBC (Bld) 34 % Normal [facility]; [facility] Work Phone: Comment on above: PATIENT WAS FASTINGP ERFORMED BY: [place] [id number] [facility] [id number] MCH (RBC) [Entitic mass] 30.6 pg Normal 26.6-33.0 [facility]; [facility] Work Phone: Comment on above: PATIENT WAS FASTINGP ERFORMED BY: [place] [id number] [facility] [id number] MCHC (RBC) [Mass/Vol] 34.5 g/dL Normal 31.5-35.7 [facility] prehensive Internal Medicine; [facility] Work Phone: Comment on above: PATIENT WAS FASTINGP ERFORMED BY: CB [facility] Ozouon0685 [address] RoadDublin [place] [id number] MCV (RBC) [Entitic vol] 89 fL Normal 79-97 C [facility]; [facility] Work Phone: Comment on above: PATIENT WAS FASTINGP ERFORMED BY: CB [facility] Zvqusx1424 [address] RoadDublin [place] [id number] Monocytes (Bld) [#/Vol] 0.5 10*3/uL Normal 0.1-0.9 [facility]; [facility] Work Phone: Comment on above: PATIENT WAS FASTINGP ERFORMED BY: CB [facility] Tcwpso0038 [address]arr RoadDublin [place] [id number] Monocytes/100 WBC (Bld) 7 % Normal C [facility]; [facility] Work Phone: Comment on above: PATIENT WAS FASTINGP ERFORMED BY: CB [facility] Qvtlgd3900 [address] RoadDublin [place] [id number] Neutrophils (Bld) [#/Vol] 4.2 10*3/uL Normal 1.4-7.0 [facility]; [facility] Work Phone: Comment on above: PATIENT WAS FASTINGP ERFORMED BY: CB [facility] Mfdqqw5502 [address] RoadDublin [place] [id number] Neutrophils/100 WBC (Bld) 55 % Normal [facility]; [facility] Work Phone: Comment on above: PATIENT WAS FASTINGP ERFORMED BY: CB [facility] Vffhyp1364 [address] RoadDublin [place] [id number] Platelets (Bld) [#/Vol] 340 10*3/uL Normal 150-450 [facility]; [facility] Work Phone: Comment on above: PATIENT WAS FASTINGP ERFORMED BY: CB [facility] Kcrvmo1764 [address] RoadDublin [place] [id number] RBC (Bld) [#/Vol] 4.45 10*6/uL Normal 3.77-5.28 [facility]; [facility] Work Phone: Comment on above: PATIENT WAS FASTINGP ERFORMED BY: JAYLIN [facility] Xubbme0180 [address] RoadDublin [place] [id number] WBC (Bld) [#/Vol] 7.6 10*3/uL Normal 3.4-10.[address] [facility] Internal [facility]; [facility] Work Phone: Comment on above: PATIENT WAS FASTINGP ERFORMED BY: JAYLIN [facility] Xgczaa1254 [address] RoadDublin [place] [id number] LIPID PANEL ([id number])Ordered B y: Corporate Development Officer on 03-13-2023 Cholesterol [Mass/Vol] 220 mg/dL Abnormal 100-199 [facility]; [facility] Work Phone: Comment on above: PATIENT WAS FASTINGP ERFORMED BY: JAYLIN Labbenita PaulinoCkmvxf0225 [address] RoadDublin [place] [id number] Cholesterol in HDL [Mass/Vol] 44 mg/dL Normal [facility]; [facility] Work Phone: Comment on above: PATIENT WAS FASTINGP ERFORMED BY: JAYLIN Labcoyue Jmthdx7133 [address] RoadDublin [place] [id number] Triglyceride [Mass/Vol] 123 mg/dL Normal 0-[address] [facility]ensive [facility]; [facility] Work Phone: Comment on above: PATIENT WAS FASTINGP ERFORMED BY: JAYLIN [facility] Sjojas5009 [address] RoadDublin [place] [id number] LIPID PANEL (36456) 22 mg/dL Normal 5-40 [facility]; [facility] Work Phone: Comment on above: PATIENT WAS FASTINGP ERFORMED BY: JAYLIN [facility] Zfpaud4841 [address] RoadDublin [place] [id number] LIPID PANEL (23162) 154 mg/dL Abnormal 0-99 [facility]; [facility] Work Phone: Comment on above: PATIENT WAS FASTINGP ERFORMED BY: JAYLIN [facility] Hqdusl0709 [address] RoadDublin [place] [id number] LIPID PANEL (47668) 3.5 {ratio} Abnormal 0.0-3.2 [facility] Internal Medicine; [facility] Work Phone: Comment on above: LDL/HDL Ratio Men Wo men 1/2 Avg.Risk 1.0 1.5 Avg.Risk 3.6 3.2 2X Avg.Risk 6.2 5.0 3X Avg.Risk 8.0 6.1 PATIENT WAS FASTINGP ERFORMED BY: JAYLIN [facility] Xzyfbt3781 [address] RoadDublin [place] [id number] METABOLIC PANEL, COMPREHENSI VE (22832)Ordered By: Corporate Development Officer on 03-13-2023 Albumin [Mass/Vol] 4.1 g/dL Normal 3.8-4.[address] [facility] Internal Medicine; [facility] Work Phone: Comment on above: PATIENT WAS FASTINGP ERFORMED BY: JAYLIN [facility] Dtijqj6953 [address] RoadDublin [place] [id number] Albumin/Globulin [Mass ratio] 1.1 {ratio} Abnormal 1.2-2.2 [facility]; [facility] Work Phone: Comment on above: PATIENT WAS FASTINGP ERFORMED BY: JAYLIN [facility] Rghntt7654 [address] RoadDublin [place] [id number] ALP [Catalytic activity/Vol] 108 U/L Normal 44-121 [facility]; [facility] Work Phone: Comment on above: PATIENT WAS FASTINGP ERFORMED BY: JAYLIN [facility] Mzedfm7217 [address] RoadDublin [place] [id number] ALT [Catalytic activity/Vol] 17 U/L Normal 0-32 [facility]; [facility] Work Phone: Comment on above: PATIENT WAS FASTINGP ERFORMED BY: CB [facility] Ahqjpw7399 [address] RoadDublin [place] [id number] AST [Catalytic activity/Vol] 19 U/L Normal 0-40 [facility]; [facility] Work Phone: Comment on above: PATIENT WAS FASTINGP ERFORMED BY: JAYLIN [facility] Nuqatv8021 [address] RoadDublin [place] [id number] Bilirubin [Mass/Vol] 0.5 mg/dL Normal 0.0-1.2 Comp rehensive Internal Medicine; [facility] Work Phone: Comment on above: PATIENT WAS FASTINGP ERFORMED BY: JAYLIN [facility] Egndff4534 [address] RoadDublin [place] [id number] Calcium [Mass/Vol] 9.5 mg/dL Normal 8.7-10.2 [facility]; [facility] Work Phone: Comment on above: PATIENT WAS FASTINGP ERFORMED BY: [facility] Segktv3959 [address] RoadDublin [place] [id number] Chloride [Moles/Vol] 102 mmol/L Normal 96-106 Comp rehensive Internal Medicine; [facility] Work Phone: Comment on above: PATIENT WAS FASTINGP ERFORMED BY: [facility] Envpit1052 [address] RoadDublin [place] [id number] CO2 [Moles/Vol] 21 mmol/L Normal 20-29 Comprehen [facility] Internal [facility]; [facility] Work Phone: Comment on above: PATIENT WAS FASTINGP ERFORMED BY: [facility] Zuslbe7650 [address] RoadDublin [place] [id number] Creatinine [Mass/Vol] 0.64 mg/dL Normal 0.57-1.00 [facility] prehensive Internal Medicine; [facility] Work Phone: Comment on above: PATIENT WAS FASTINGP ERFORMED BY: [facility] Smawfm8749 Starr RoadUnc Healthin [place] [id number] GFR/1.73 sq M.predicted among non-blacks MDRD (S/P/Bld) [Vol rate/Area] 111 mL/min/{1.73_m2} Normal Comprehensi ve Internal Medicine; [facility] Work Phone: Comment on above: PATIENT WAS FASTINGP ERFORMED BY: [facility] Dvnwgk8347 [address] RoadDublin [place] [id number] Globulin (S) [Mass/Vol] 3.9 g/dL Normal 1.5-4.5 C omprehensive Internal Medicine; [facility] Work Phone: Comment on above: PATIENT WAS FASTINGP ERFORMED BY: CB [facility] Rsafnd6412 [address] RoadDublin [place] [id number] Glucose [Mass/Vol] 93 mg/dL Normal 70-[address] [facility] Internal Medicine; [facility] Work Phone: Comment on above: PATIENT WAS FASTINGP ERFORMED BY: CB [facility] Lmsbkx4328 [address] RoadDublin [place] [id number] Potassium [Moles/Vol] 4.4 mmol/L Normal 3.5-5.2 [facility] Internal Medicine; [facility] Work Phone: Comment on above: PATIENT WAS FASTINGP ERFORMED BY: CB [facility] Kqzcef0690 [address] RoadDublin [place] [id number] Protein [Mass/Vol] 8.0 g/dL Normal 6.0-8.[address] [facility] Internal Medicine; [facility] Work Phone: Comment on above: PATIENT WAS FASTINGP ERFORMED BY: CB [facility] Jqonbp9867 [address] RoadDublin [place] [id number] Sodium [Moles/Vol] 137 mmol/L Normal 134-[address] [facility] Internal Medicine; [facility] Work Phone: Comment on above: PATIENT WAS FASTINGP ERFORMED BY: CB [facility] Ttnmdx8015 [address] RoadDublin [place] [id number] Urea nitrogen [Mass/Vol] 16 mg/dL Normal 6-24 [facility] Internal Medicine; [facility] Work Phone: Comment on above: PATIENT WAS FASTINGP ERFORMED BY: CB [facility] Auxwoh6989 [address] RoadDublin [place] [id number] Urea nitrogen/Creatinine [Mass ratio] 25 mg/mg Abnormal 9-23 [facility] Internal Medicine; [facility] Work Phone: Comment on above: PATIENT WAS FASTINGP ERFORMED BY: CB [facility] Gyumkm6419 [address] RoadDublin [place] [id number] MICROALBUMINOrdered By: Syst em Rehabilitation Services Aide on 03-13-2023 Albumin DL <= 20 mg/L (U) [Mass/Vol] mg/dL Normal [facility]; [facility] Work Phone: Comment on above: PATIENT WAS FASTINGP ERFORMED BY: JAYLIN Del Castillo6370 [address] RoadDublin [place] [id number] Albumin/Creatinine (U) [Mass ratio] <3 Normal 0-29 [facility]; [facility] Work Phone: Comment on above: Normal: 0 - 29 Moder ately increased: 30 - 300 Severely increased: >300 PATIENT WAS FASTINGP ERFORMED BY: JAYLIN Labbenita PaulinoRddtma6741 [address] RoadDublin [place] [id number] Creatinine (U) [Mass/Vol] 101.0 mg/dL Normal [facility]; [facility] Work Phone: Comment on above: PATIENT WAS FASTINGP ERFORMED BY: JAYLIN Paulinolin6370 [address] RoadDublin [place] [id number] TSH ([id number])Ordered By: Nanobiotixe m Rehabilitation Services Aide on 03-13-2023 TSH Qn 2.380 {uIU/mL} Normal 0.450-4.50 0 [facility]; [facility] Work Phone: Comment on above: PATIENT WAS FASTINGP ERFORMED BY: JAYLIN Del Castillo6370 [address] RoadDublin [place] [id number] URINALYSIS, W/ MICRO ([id number]) Ordered By: Corporate Development Officer on 03-13-2023 Appearance (U) Clear Normal Comprehens [place] [facility]; [facility] Work Phone: Comment on above: PATIENT WAS FASTINGP ERFORMED BY: JAYLIN Labbenita PaulinoGrxfjf4888 [address] RoadDublin [place] [id number] Bilirubin Ql (U) Negative Normal Comprehe nsive Internal Medicine; [facility] Work Phone: Comment on above: PATIENT WAS FASTINGP ERFORMED BY: JAYLIN Paulinolin6370 [address] RoadDublin [place] [id number] Color (U) Yellow Normal [facility]; [facility] Work Phone: Comment on above: PATIENT WAS FASTINGP ERFORMED BY: CB [facility] Xjywpz4867 [address] RoadDublin [place] [id number] Glucose Ql (U) Negative Normal Comprehens [place] [facility]; [facility] Work Phone: Comment on above: PATIENT WAS FASTINGP ERFORMED BY: JAYLIN [facility] Pmvcjy7925 [address] RoadDublin [place] [id number] Hemoglobin Ql (U) Negative Normal Compreh ensive Internal Medicine; [facility] Work Phone: Comment on above: PATIENT WAS FASTINGP ERFORMED BY: [facility] Bpwelm7780 Str[address] RoadDublin [place] [id number] Ketones Ql (U) Negative Normal Comprehens [place] [facility]; [facility] Work Phone: Comment on above: PATIENT WAS FASTINGP ERFORMED BY: JAYLIN [facility] Pcuick0151 [address] RoadDublin [place] [id number] Leukocyte esterase Test strip Ql (U) Negative Normal [facility]; [facility] Work Phone: Comment on above: PATIENT WAS FASTINGP ERFORMED BY: JAYLIN [facility] Yuldmh4863 [address] RoadDublin [place] [id number] Microscopic observation LM Nom (Urine sed) MICRON Normal [facility]; [facility] Work Phone: Comment on above: Microscopic follows if indicated. PATIENT WAS FASTINGP ERFORMED BY: JAYLIN [facility] Exswrh5047 [address] RoadDublin [place] [id number] Microscopic observation LM Nom (Urine sed) See below: Normal [facility]; [facility] Work Phone: Comment on above: Microscopic was nazanin cated and was performed. PATIENT WAS FASTINGP ERFORMED BY: [facility] Uqvbzl2433 [address] RoadDublin [place] [id number] Nitrite Ql (U) Negative Normal Comprehens [place] [facility]; [facility] Work Phone: Comment on above: PATIENT WAS FASTINGP ERFORMED BY: JAYLIN [facility] Cctudm8750 [address] RoadDublin [place] [id number] pH (U) 5.5 [pH] Normal 5.0-7.5 [facility]; [facility] Work Phone: Comment on above: PATIENT WAS FASTINGP ERFORMED BY: RoboCV Udhgar6250 [facility] [id number] Protein Ql (U) Negative Normal Comprehens [place] [facility]; [facility] Work Phone: Comment on above: PATIENT WAS FASTINGP ERFORMED BY: RoboCV Mfkher4358 [facility] [id number] Specific gravity (U) [Rel density] 1.021 1 Normal 1.005-1.03 0 [facility]; [facility] Work Phone: Comment on above: PATIENT WAS FASTINGP ERFORMED BY: RoboCV Yrdysu4501 [facility] [id number] Urobilinogen (U) [Mass/Vol] 0.2 mg/dL Normal 0.2-1.0 [facility]; [facility] Work Phone: Comment on above: PATIENT WAS FASTINGP ERFORMED BY: RoboCV Ykbztf0002 [facility] [id number] Absolute lymphocyte counton 08-14-2022 Lymphocytes Auto (Unsp spec) [#/Vol] 2.79 10*3/uL 0.83-4.51 [facility] Work Phone: Basophil percentageon 2021 Basophil percentage 0-5 SEEN /hpf 0-5 [facility] Work Phone: Basophils/100 WBC (Bld) 0.5 % 0-1 W [facility] Work Phone: Chloride [Moles/Vol] 108 mmol/L 98-107 [facility] Work Phone: Eosinophils/100 WBC (Bld) 1.3 % 0-5 [facility] Work Phone: Glucose [Mass/Vol] 115 mg/dL 74-106 [facility] Work Phone: Comment on above: Fasting Glucose resu lt from 100 to 125 mg/dL suggests IMPAIRED HOMEOSTASIS per A.D.A. criteria. Neutrophils (Bld) [#/Vol] 6.1 10*3/uL 2.0-7.7 [facility] Work Phone: Neutrophils/100 WBC (Bld) 61.8 % 47-70 [facility] Work Phone: Potassium [Moles/Vol] 3.4 mmol/L 3.5-5.1 [facility] Work Phone: Sodium [Moles/Vol] 139 mmol/L 136-145 [facility] Work Phone: WBC (Bld) [#/Vol] 9.9 10*3/uL 4.4-11.0 [facility] Work Phone: Bilirubin Test strip Ql (U)o n 08-14-2022 Bilirubin Ql (U) Negative Negative [facility] Work Phone: Blood erythrocytes count (nu mber/volume)on 08-14-2022 RBC (Bld) [#/Vol] 4.33 10*6/uL 4.2-5.4 [facility] Work Phone: Blood hemoglobin measurement (mass/volume)on 08-14-2022 Hemoglobin (Bld) [Mass/Vol] 13.3 g/dL 12.0-15.0 [facility] Work Phone: Blood lymphocytes/100 leukoc yteson 08-14-2022 Lymphocytes/100 WBC (Bld) 28.1 % 19-41 [facility] Work Phone: Blood monocytes/100 leukocyt eson 08-14-2022 Monocytes/100 WBC (Bld) 8.1 % 0-10 [facility] Work Phone: Blood platelet mean volumeon 08-14-2022 Platelet mean volume (Bld) [Entitic vol] 11.1 fL 6.2-12.0 [facility] Work Phone: Determination of erythrocyte mean corpuscular volume (MCV)on 08-14-2022 MCV (RBC) [Entitic vol] 90.8 fL 81-99 [facility] Work Phone: Hematocrit Auto (Bld) [Volum e fraction]on 08-14-2022 Hematocrit (Bld) [Volume fraction] 39.3 % 37-47 [facility] Work Phone: Ketones Test strip Ql (U)on 08-14-2022 Ketones Ql (U) Negative Negative [facility] Work Phone: Laboratory - Chemistry and C hemistry - challengeon 08-14-2022 CO2 [Moles/Vol] 25.0 mmol/L 21.0-32.0 [facility] Work Phone: Urea nitrogen/Creatinine [Mass ratio] 18.0 mg/mg 10-20 [facility] Work Phone: Laboratory - Hematology and Cell countson 08-14-2022 Erythrocyte distribution width (RBC) [Entitic vol] 41.2 fL 35.1-43.9 [facility] Work Phone: Erythrocyte distribution width (RBC) [Ratio] 12.4 % 11.6-14.6 [facility] Work Phone: Immature granulocytes/100 WBC (Bld) 0.200 % 0.0-0.9 [facility] Work Phone: Comment on above: IG% - Immature Granu locytes (promyelocytes, myelocytes and metamyelocytes) > 1% indicates that a LEFT SHIFT is Present. MCH (RBC) [Entitic mass] 30.7 pg 27.0-32.0 [facility] Work Phone: Nucleated RBC/100 WBC (Bld) [Ratio] 0 % 0-5 [facility] Work Phone: MCHC Auto (RBC) [Mass/Vol]on 08-14-2022 MCHC (RBC) [Mass/Vol] 33.8 g/dL 32-36 [facility] Work Phone: Mucus LM Ql (Urine sed)on Mucus Ql (Urine sed) 0 SEEN /hpf [facility] Work Phone: Nitrite Test strip Ql (U)on 08-14-2022 Nitrite Ql (U) Negative Negative [facility] Work Phone: No Panel Informationon 08-14 Estimated Creatinine Clearance Calc 104.25 ml/min [facility] Work Phone: Estimated GFR (MDRD) Amer 136 mL/min >60 [facility] Work Phone: Comment on above: GFR Calc Estimated GFR (MDRD) Non-Af Amer 113 mL/min >60 [facility] Work Phone: Comment on above: Non- GFR Calc Platelets bldon 08-14-2022 Platelets (Bld) [#/Vol] 309 10*3/uL 150-450 [facility] Work Phone: Protein Test strip Ql (U)on 08-14-2022 Protein Ql (U) Negative Negative [facility] Work Phone: Serum or plasma calcium abbey urement (mass/volume)on 08-14-2022 Calcium [Mass/Vol] 9.3 mg/dL 8.5-10.1 [facility] Work Phone: Serum or plasma creatinine m easurement (mass/volume)on 08-14-2022 Creatinine [Mass/Vol] 0.61 mg/dL 0.55-1.02 [facility] Work Phone: Comment on above: The validity of the calculated GFR & GFRAA in patients over 70 years has not been determined. Clinical correlation is essential. Serum or plasma urea nitroge n measurement (mass/volume)on 08-14-2022 Urea nitrogen [Mass/Vol] 11 mg/dL 7-18 [facility] Work Phone: Squamous epithelial cells de tection in urine sediment by light microscopyon 08-14-2022 Epithelial cells.squamous LM Ql (Urine sed) 0-5 SEEN /hpf 5-10 [facility] Work Phone: Thin prep Papanicolaou smear with manual screeningon 08-14-2022 Thin prep Papanicolaou smear with manual screening 6 5-15 [facility] Work Phone: Urine blood detectionon - RBC Ql (U) Negative Negative [facility] Work Phone: RBC Ql (U) 0 SEEN /hpf 0-5 [facility] Work Phone: Urine clarityon 08-14-2022 Clarity (U) Sl. Cloudy Clear [facility] Work Phone: Urine color determinationon 08-14-2022 Color (U) Yellow Yellow [facility] Work Phone: Urine glucose detectionon Glucose Ql (U) Normal mg/dl Normal [facility] Work Phone: Urine leukocyte esterase det ection by dipstickon 08-14-2022 Leukocyte esterase Test strip Ql (U) 25 /ul Negative [facility] Work Phone: Urine pHon 08-14-2022 pH (U) 6.0 [pH] 5.0 - 8.0 [facility] Work Phone: Urine sediment bacteria coun t by microscopy (number/high power field)on 08-14-2022 Bacteria LM.HPF (Urine sed) [#/Area] 1 /[HPF] None Seen [facility] Work Phone: Urine specific gravity measu rementon 08-14-2022 Specific gravity (U) [Rel density] 1.010 1.002-1.[address] [facility] Work Phone: Urobilinogen Auto test strip Ql (U)on 08-14-2022 Urobilinogen Ql (U) Normal mg/dl Normal [facility] Work Phone: CBC W/AUTO DIFF WBC ([id number])O rdered By: Corporate Development Officer on 03-28-2022 Basophils (Bld) [#/Vol] 0.1 10*3/uL Normal 0.0-0.2 [facility]; [facility] Work Phone: Comment on above: PATIENT NOT FASTINGP ERFORMED BY: JAYLIN Del Castillo6370 [address]Dublin [place] [id number] Basophils/100 WBC (Bld) 1 % Normal C omprehensive [facility]; [facility] Work Phone: Comment on above: PATIENT NOT FASTINGP ERFORMED BY: JAYLIN Del Castillo6370 [address] RoadDublin [place] [id number] Eosinophils (Bld) [#/Vol] 0.3 10*3/uL Normal 0.0-0.4 [facility]; [facility] Work Phone: Comment on above: PATIENT NOT FASTINGP ERFORMED BY: JAYLIN Labcoyue Del CastilloNghffo8330 [address] RoadDublin [place] [id number] Eosinophils/100 WBC (Bld) 3 % Normal [facility]; [facility] Work Phone: Comment on above: PATIENT NOT FASTINGP ERFORMED BY: JAYLIN Del Castillo[address] [facility] [id number] Erythrocyte distribution width (RBC) [Ratio] 12.5 % Normal 11.7-15.4 [facility]; [facility] Work Phone: Comment on above: PATIENT NOT FASTINGP ERFORMED BY: JAYLIN Del Castillo[address] [facility] [place] [id number] Hematocrit (Bld) [Volume fraction] 40.6 % Normal 34.0-46.6 [facility]; [facility] Work Phone: Comment on above: PATIENT NOT FASTINGP ERFORMED BY: JAYLIN Handcoyue Del CastilloOowapw4349 Starr RoadDuin [place] [id number] Hemoglobin (Bld) [Mass/Vol] 13.7 g/dL Normal 11.1-15.9 [facility]; [facility] Work Phone: Comment on above: PATIENT NOT FASTINGP ERFORMED BY: JAYLIN Del Castillo6[address]Dublin [place] [id number] Immature granulocytes (Bld) [#/Vol] 0.0 10*3/uL Normal 0.0-0.1 [facility]; [facility] Work Phone: Comment on above: PATIENT NOT FASTINGP ERFORMED BY: JAYLIN Labcoyue Htkrmr7459 [address] RoadDublin [place] [id number] Immature granulocytes/100 WBC (Bld) 0 % Normal [facility]; [facility] Work Phone: Comment on above: PATIENT NOT FASTINGP ERFORMED BY: JAYLIN [facility] Gpnxen3120 [address] RoadDublin [place] [id number] Lymphocytes (Bld) [#/Vol] 2.9 10*3/uL Normal 0.7-3.1 [facility]; [facility] Work Phone: Comment on above: PATIENT NOT FASTINGP ERFORMED BY: JAYLIN Labcoyue Del CastilloKnffzd3493 [address] RoadDublin [place] [id number] Lymphocytes/100 WBC (Bld) 34 % Normal [facility]; [facility] Work Phone: Comment on above: PATIENT NOT FASTINGP ERFORMED BY: JAYLIN Labcoyue PaulinoPhoaye9494 [address] RoadDublin [place] [id number] MCH (RBC) [Entitic mass] 30.6 pg Normal 26.6-33.0 [facility]; [facility] Work Phone: Comment on above: PATIENT NOT FASTINGP ERFORMED BY: JAYLIN Labcoyue PaulinoUucznm2802 [address] RoadDublin [place] [id number] MCHC (RBC) [Mass/Vol] 33.7 g/dL Normal 31.5-35.7 [facility] prehensive Internal Medicine; [facility] Work Phone: Comment on above: PATIENT NOT FASTINGP ERFORMED BY: CB [facility] Dnujyv0584 [address] RoadDublin [place] [id number] MCV (RBC) [Entitic vol] 91 fL Normal 79-97 C omprehensive [facility]; [facility] Work Phone: Comment on above: PATIENT NOT FASTINGP ERFORMED BY: JAYLIN [facility] Gjfyxb4969 [address] RoadDublin [place] [id number] Monocytes (Bld) [#/Vol] 0.7 10*3/uL Normal 0.1-0.9 [facility]; [facility] Work Phone: Comment on above: PATIENT NOT FASTINGP ERFORMED BY: CB [facility] Azfnzy3084 [address] RoadDublin [place] [id number] Monocytes/100 WBC (Bld) 8 % Normal [facility]; [facility] Work Phone: Comment on above: PATIENT NOT FASTINGP ERFORMED BY: CB [facility] [id number]Dublin [place] [id number] Neutrophils (Bld) [#/Vol] 4.7 10*3/uL Normal 1.4-7.0 [facility]; [facility] Work Phone: Comment on above: PATIENT NOT FASTINGP ERFORMED BY: CB [facility] [id number]Dublin [place] [id number] Neutrophils/100 WBC (Bld) 54 % Normal [facility]; [facility] Work Phone: Comment on above: PATIENT NOT FASTINGP ERFORMED BY: CB [facility] [id number] [address]Dublin [place] [id number] Platelets (Bld) [#/Vol] 332 10*3/uL Normal 150-450 [facility]; [facility] Work Phone: Comment on above: PATIENT NOT FASTINGP ERFORMED BY: CB [facility] [id number]Dublin [place] [id number] RBC (Bld) [#/Vol] 4.48 10*6/uL Normal 3.77-5.28 [facility] Work Phone: Comment on above: PATIENT NOT FASTINGP ERFORMED BY: CB [facility] [id number]Dublin [place] [id number] WBC (Bld) [#/Vol] 8.6 10*3/uL Normal 3.4-10.8 [facility]; [facility] Work Phone: Comment on above: PATIENT NOT FASTINGP ERFORMED BY: CB [facility] [id number] RoadDublin [place] [id number] Absolute lymphocyte counton 03-06-2022 Lymphocytes Auto (Unsp spec) [#/Vol] 2.67 10*3/uL 0.83-4.51 [facility] Work Phone: Basophil percentageon 2021 Basophils/100 WBC (Bld) 0.4 % 0-1 [facility] Work Phone: Bilirubin [Mass/Vol] 0.50 mg/dL 0.20-1.00 [facility] Work Phone: Comment on above: For patients on eltr ombopag therapy, use of Dimension [place] TBIL is not recommended. Chloride [Moles/Vol] 105 mmol/L 98-107 [facility] Work Phone: Cholesterol [Mass/Vol] 213 mg/dL <200 [facility] Work Phone: Comment on above: <200 mg/dL Desirable 200-240 mg/dL Borderline >240 mg/dL High Risk Eosinophils/100 WBC (Bld) 0.6 % 0-5 [facility] Work Phone: Glucose [Mass/Vol] 94 mg/dL 74-106 [facility] Work Phone: Neutrophils (Bld) [#/Vol] 12.3 10*3/uL 2.0-7.7 [facility] Work Phone: Neutrophils/100 WBC (Bld) 77.3 % 47-70 [facility] Work Phone: Potassium [Moles/Vol] 4.1 mmol/L 3.5-5.1 [facility] Work Phone: Protein [Mass/Vol] 7.9 g/dL 6.4-8.2 [facility] Work Phone: Sodium [Moles/Vol] 139 mmol/L 136-145 [facility] Work Phone: Triglyceride [Mass/Vol] 118 mg/dL [facility] Work Phone: Comment on above: The drugs N-Acetylcy steine and Metamizole may falsely depress this assay.Serum Triglycerides Reference Interval Normal <150 mg/dL Borderline high 150 - 199 mg/dL High 200 - 499 mg/dL Very High > or = 500 mg/dL WBC (Bld) [#/Vol] 15.9 10*3/uL 4.4-11.0 [facility] Work Phone: Blood erythrocytes count (nu mber/volume)on 03-06-2022 RBC (Bld) [#/Vol] 4.53 10*6/uL 4.2-5.4 [facility] Work Phone: Blood hemoglobin measurement (mass/volume)on 03-06-2022 Hemoglobin (Bld) [Mass/Vol] 13.7 g/dL 12.0-15.0 [facility] Work Phone: Blood lymphocytes/100 leukoc yteson 03-06-2022 Lymphocytes/100 WBC (Bld) 16.8 % 19-41 [facility] Work Phone: Blood monocytes/100 leukocyt eson 03-06-2022 Monocytes/100 WBC (Bld) 4.5 % 0-10 [facility] Work Phone: Blood platelet mean volumeon 03-06-2022 Platelet mean volume (Bld) [Entitic vol] 11.6 fL 6.2-12.0 [facility] Work Phone: Determination of erythrocyte mean corpuscular volume (MCV)on 03-06-2022 MCV (RBC) [Entitic vol] 93.4 fL 81-99 [facility] Work Phone: Hematocrit Auto (Bld) [Volum e fraction]on 03-06-2022 Hematocrit (Bld) [Volume fraction] 42.3 % 37-47 [facility] Work Phone: Laboratory - Chemistry and C hemistry - challengeon 03-06-2022 ALP [Catalytic activity/Vol] 90 U/L 45-117 [facility] Work Phone: ALT [Catalytic activity/Vol] 26 U/L 13-56 [facility] Work Phone: CO2 [Moles/Vol] 25.0 mmol/L 21.0-32.0 [facility] Work Phone: Globulin (S) [Mass/Vol] 4.7 g/dL 2.2-4.2 [facility] Work Phone: Urea nitrogen/Creatinine [Mass ratio] 14.0 mg/mg 10-20 [facility] Work Phone: Laboratory - Hematology and Cell countson 03-06-2022 Erythrocyte distribution width (RBC) [Entitic vol] 43.2 fL 35.1-43.9 [facility] Work Phone: Erythrocyte distribution width (RBC) [Ratio] 12.6 % 11.6-14.6 [facility] Work Phone: Immature granulocytes/100 WBC (Bld) 0.400 % 0.0-0.9 [facility] Work Phone: Comment on above: IG% - Immature Granu locytes (promyelocytes, myelocytes and metamyelocytes) > 1% indicates that a LEFT SHIFT is Present. MCH (RBC) [Entitic mass] 30.2 pg 27.0-32.0 [facility] Work Phone: Nucleated RBC/100 WBC (Bld) [Ratio] 0 % 0-5 [facility] Work Phone: MCHC Auto (RBC) [Mass/Vol]on 03-06-2022 MCHC (RBC) [Mass/Vol] 32.4 g/dL 32-36 [facility] Work [facility]: No Panel Informationon 03-06 Estimated GFR (MDRD) Amer 129 mL/min >60 [facility] Work Phone: Comment on above: GFR Calc Estimated GFR (MDRD) Non-Af Amer 106 mL/min >60 [facility] Work Phone: Comment on above: Non- GFR Calc Thyroid Stimulating Hormone (TSH) 3.39 uIU/mL 0.358-3.74 [facility] Work Phone: Urine Microalbumin/Creatinine Ratio 16.0 mg/g CRE <30 [facility] Work Phone: Platelets bldon 03-06-2022 Platelets (Bld) [#/Vol] 320 10*3/uL 150-450 [facility] Work Phone: Serum or plasma albumin abbey urement (mass/volume)on 03-06-2022 Albumin [Mass/Vol] 3.2 g/dL 3.2-5.0 [facility] Work Phone: Serum or plasma albumin/glob ulin mass ratioon 03-06-2022 Albumin/Globulin [Mass ratio] 0.7 {ratio} 0.9-2.4 [facility] Work Phone: Serum or plasma calcium abbey urement (mass/volume)on 03-06-2022 Calcium [Mass/Vol] 8.8 mg/dL 8.5-10.1 [facility] Work Phone: Serum or plasma cholesterol in HDL measurement (mass/volume)on 03-06-2022 Cholesterol in HDL [Mass/Vol] 48 mg/dL [facility] Work Phone: Comment on above: The drugs N-Acetylcy steine and Metamizole may falsely depress this assay. Reference Range HDL <40 mg/dL Low HDL Cholesterol HDL >or= 60 mg/dL High HDL Cholesterol Serum or plasma cholesterol in VLDL measurement (mass/volume)on 03-06-2022 Cholesterol in VLDL [Mass/Vol] 24 mg/dL 5-40 [facility] Work Phone: Serum or plasma creatinine m easurement (mass/volume)on 03-06-2022 Creatinine [Mass/Vol] 0.64 mg/dL 0.55-1.02 [facility] Work Phone: Comment on above: The validity of the calculated GFR & GFRAA in patients over 70 years has not been determined. Clinical correlation is essential. Serum or plasma low density lipoprotein (LDL) cholesterol measurement (mass/volume)on 03-06-2022 Cholesterol in LDL [Mass/Vol] 141 mg/dL 0-130 [facility] Work Phone: Serum or plasma urea nitroge n measurement (mass/volume)on 03-06-2022 Urea nitrogen [Mass/Vol] 9 mg/dL 7-18 [facility] Work Phone: Thin prep Papanicolaou smear with manual screeningon 03-06-2022 Thin prep Papanicolaou smear with manual screening 24 U/L 15-37 [facility] Work Phone: Thin prep Papanicolaou smear with manual screening 9 5-15 [facility] Work Phone: Thin prep Papanicolaou smear with manual screening 11.6 mg/L NO RANGE EST. [facility] Work Phone: Urine creatinine measurement (mass/volume)on 03-06-2022 Creatinine (U) [Mass/Vol] 72.50 mg/dL NO RANGE EST. [facility] Work Phone: Absolute lymphocyte counton 03-02-2022 Lymphocytes Auto (Unsp spec) [#/Vol] 2.27 10*3/uL 0.83-4.51 [facility] Work Phone: Basophil percentageon 2021 Basophil percentage 0 SEEN /hpf [facility] Work Phone: Basophils/100 WBC (Bld) 0.8 % 0-1 [facility] Work Phone: Bilirubin [Mass/Vol] 0.50 mg/dL 0.20-1.00 [facility] Work Phone: Comment on above: For patients on eltr ombopag therapy, use of Dimension [place] TBIL is not recommended. Chloride [Moles/Vol] 109 mmol/L 98-107 [facility] Work Phone: Eosinophils/100 WBC (Bld) 2.5 % 0-5 [facility] Work Phone: Glucose [Mass/Vol] 103 mg/dL 74-106 [facility] Work Phone: Comment on above: Fasting Glucose resu lt from 100 to 125 mg/dL suggests IMPAIRED HOMEOSTASIS per A.D.A. criteria. Neutrophils (Bld) [#/Vol] 4.4 10*3/uL 2.0-7.7 [facility] Work Phone: Neutrophils/100 WBC (Bld) 58.5 % 47-70 [facility] Work Phone: Potassium [Moles/Vol] 3.7 mmol/L 3.5-5.1 [facility] Work Phone: Protein [Mass/Vol] 8.2 g/dL 6.4-8.2 [facility] Work Phone: Sodium [Moles/Vol] 138 mmol/L 136-145 [facility] Work Phone: WBC (Bld) [#/Vol] 7.5 10*3/uL 4.4-11.0 [facility] Work Phone: Beta hCG serum qualon 2021 Beta HCG ( test) Ql Negative [facility] Work Phone: Bilirubin Test strip Ql (U)o n 03-02-2022 Bilirubin Ql (U) Negative Negative [facility] Work Phone: Blood erythrocytes count (nu mber/volume)on 03-02-2022 RBC (Bld) [#/Vol] 4.32 10*6/uL 4.2-5.4 [facility] Work Phone: Blood hemoglobin measurement (mass/volume)on 03-02-2022 Hemoglobin (Bld) [Mass/Vol] 13.4 g/dL 12.0-15.0 [facility] Work Phone: Blood lymphocytes/100 leukoc yteson 03-02-2022 Lymphocytes/100 WBC (Bld) 30.3 % 19-41 [facility] Work Phone: Blood monocytes/100 leukocyt eson 03-02-2022 Monocytes/100 WBC (Bld) 7.6 % 0-10 [facility] Work Phone: Blood platelet mean volumeon 03-02-2022 Platelet mean volume (Bld) [Entitic vol] 10.5 fL 6.2-12.0 [facility] Work Phone: Determination of erythrocyte mean corpuscular volume (MCV)on 03-02-2022 MCV (RBC) [Entitic vol] 94.0 fL 81-99 [facility] Work Phone: Hematocrit Auto (Bld) [Volum e fraction]on 03-02-2022 Hematocrit (Bld) [Volume fraction] 40.6 % 37-47 [facility] Work Phone: Ketones Test strip Ql (U)on 03-02-2022 Ketones Ql (U) Negative Negative [facility] Work Phone: Laboratory - Chemistry and C hemistry - challengeon 03-02-2022 ALP [Catalytic activity/Vol] 86 U/L 45-117 [facility] Work Phone: ALT [Catalytic activity/Vol] 20 U/L 13-56 [facility] Work Phone: CO2 [Moles/Vol] 22.0 mmol/L 21.0-32.0 [facility] Work Phone: Globulin (S) [Mass/Vol] 5.1 g/dL 2.2-4.2 [facility] Work Phone: Lipase [Catalytic activity/Vol] 64 U/L 73-393 [facility] Work Phone: Urea nitrogen/Creatinine [Mass ratio] 18.5 mg/mg 10-20 [facility] Work Phone: Laboratory - Hematology and Cell countson 03-02-2022 Erythrocyte distribution width (RBC) [Entitic vol] 43.3 fL 35.1-43.9 [facility] Work Phone: Erythrocyte distribution width (RBC) [Ratio] 12.5 % 11.6-14.6 [facility] Work Phone: Immature granulocytes/100 WBC (Bld) 0.300 % 0.0-0.9 [facility] Work Phone: Comment on above: IG% - Immature Granu locytes (promyelocytes, myelocytes and metamyelocytes) > 1% indicates that a LEFT SHIFT is Present. MCH (RBC) [Entitic mass] 31.0 pg 27.0-32.0 [facility] Work Phone: Nucleated RBC/100 WBC (Bld) [Ratio] 0 % 0-5 [facility] Work Phone: MCHC Auto (RBC) [Mass/Vol]on 03-02-2022 MCHC (RBC) [Mass/Vol] 33.0 g/dL 32-36 [facility] Work Phone: Mucus LM Ql (Urine sed)on Mucus Ql (Urine sed) 0 SEEN /hpf [facility] Work Phone: Nitrite Test strip Ql (U)on 03-02-2022 Nitrite Ql (U) Negative Negative [facility] Work Phone: No Panel Informationon 03-02 Estimated Creatinine Clearance Calc 103.39 ml/min [facility] Work Phone: Estimated GFR (MDRD) Amer 127 mL/min >60 [facility] Work Phone: Comment on above: GFR Calc Estimated GFR (MDRD) Non-Af Amer 105 mL/min >60 [facility] Work Phone: Comment on above: Non- GFR Calc Platelets bldon 03-02-2022 Platelets (Bld) [#/Vol] 307 10*3/uL 150-450 [facility] Work Phone: Protein Test strip Ql (U)on 03-02-2022 Protein Ql (U) Negative Negative [facility] Work Phone: Serum or plasma albumin abbey urement (mass/volume)on 03-02-2022 Albumin [Mass/Vol] 3.1 g/dL 3.2-5.0 [facility] Work Phone: Serum or plasma albumin/glob ulin mass ratioon 03-02-2022 Albumin/Globulin [Mass ratio] 0.6 {ratio} 0.9-2.4 [facility] Work Phone: Serum or plasma calcium abbey urement (mass/volume)on 03-02-2022 Calcium [Mass/Vol] 8.8 mg/dL 8.5-10.1 [facility] Work Phone: Serum or plasma creatinine m easurement (mass/volume)on 03-02-2022 Creatinine [Mass/Vol] 0.65 mg/dL 0.55-1.02 [facility] Work Phone: Comment on above: The validity of the calculated GFR & GFRAA in patients over 70 years has not been determined. Clinical correlation is essential. Serum or plasma urea nitroge n measurement (mass/volume)on 03-02-2022 Urea nitrogen [Mass/Vol] 12 mg/dL 7-18 [facility] Work Phone: Squamous epithelial cells de tection in urine sediment by light microscopyon 03-02-2022 Epithelial cells.squamous LM Ql (Urine sed) 0-5 SEEN /hpf [facility] Work Phone: Thin prep Papanicolaou smear with manual screeningon 03-02-2022 Thin prep Papanicolaou smear with manual screening 14 U/L 15-37 [facility] Work Phone: Thin prep Papanicolaou smear with manual screening 7 5-15 [facility] Work Phone: Urine blood detectionon 02-17 RBC Ql (U) Negative Negative [facility] Work Phone: RBC Ql (U) 0 SEEN /hpf [facility] Work Phone: Urine clarityon 03-02-2022 Clarity (U) Clear Clear [facility] Work Phone: Urine color determinationon 03-02-2022 Color (U) Yellow Yellow [facility] Work Phone: Urine glucose detectionon Glucose Ql (U) Normal mg/dl Normal [facility] Work Phone: Urine leukocyte esterase det ection by dipstickon 03-02-2022 Leukocyte esterase Test strip Ql (U) Negative Negative [facility] Work Phone: Urine pHon 03-02-2022 pH (U) 6.5 [pH] [facility] Work Phone: Urine sediment bacteria coun t by microscopy (number/high power field)on 03-02-2022 Bacteria LM.HPF (Urine sed) [#/Area] 0 /[HPF] None Seen [facility] Work Phone: Urine specific gravity measu rementon 03-02-2022 Specific gravity (U) [Rel density] 1.005 [facility] Work Phone: Urobilinogen Auto test strip Ql (U)on 03-02-2022 Urobilinogen Ql (U) Normal mg/dl Normal [facility] Work Phone: DESMOND CULTURE-OTHER ([id number])Ord ered By: Lesli Márquez on 12-28-2008 Bacteria identified Respiratory culture Nom (Unsp spec) Final report Normal [facility]; [facility] Work Phone: Comment on above: PATIENT NOT FASTINGC linical Information: SRC:THRT ADD [id number] PERFORMED BY: [facility] [id number] Bacteria identified Respiratory culture Nom (Unsp spec) RRF Normal [facility]; [facility] Work Phone: Comment on above: Routine respiratory lisa PATIENT NOT FASTINGC linical Information: SRC:THRT ADD [id number] PERFORMED BY: TUKZ [employer]gar[employer]70 [facility] [id number] INFLUENZA IMMUNOASSY DIRECT OPTICAL OBSERV ([id number])Ordered By: Octavia Alejo on 12-28-2008 FLUAV Ag IA Ql (Throat) Negative Normal [facility]; [facility] Work Phone: Comment on above: a and b Rapid Strep Test, Office ([phone])on 12-28-2008 S. pyogenes Ag EIA Ql (Throat) Negative Normal [facility]; [facility] Work Phone: LIPID PANEL ([id number])Ordered B y: Lesli Márquez on 11-25-2008 Cholesterol [Mass/Vol] 229 mg/dL Abnormal 100-199 [facility]; [facility] Work Phone: Comment on above: PATIENT WAS FASTINGC linical Information: ADD DRAW FEE [id number] ADD J [id number] PERFORMED BY: [facility]Formerly [facility] [id number] Cholesterol in HDL [Mass/Vol] 61 mg/dL Normal [facility]; [facility] Work Phone: Comment on above: According to ATP-III Guidelines, HDL-C >59 mg/dL is considered anegative risk factor for CHD. PATIENT WAS FASTINGC linical Information: ADD DRAW FEE [id number] ADD J [id number] PERFORMED BY: JAYLIN [facility] [id number] Cholesterol in LDL [Mass/Vol] 141 mg/dL Abnormal 0-99 [facility]; [facility] Work Phone: Comment on above: PATIENT WAS FASTINGC linical Information: ADD DRAW FEE [id number] ADD J [id number] PERFORMED BY: JAYLIN [facility] [id number] Cholesterol in LDL/Cholesterol in HDL [Mass ratio] SPRCS Normal [facility]; [facility] Work Phone: Comment on above: If initial LDL-ariadna sterol result is >100 mg/dL, assess forrisk factors. PATIENT WAS FASTINGC linical Information: ADD DRAW FEE [id number] ADD J [id number] PERFORMED BY: TUKZ [employer]gar[employer]70 [facility] [id number] Cholesterol in LDL/Cholesterol in HDL [Mass ratio] 2.3 {ratio_units} Normal 0.0-3.2 [facility]; [facility] Work Phone: Comment on above: PATIENT WAS FASTINGC linical Information: ADD DRAW FEE [id number] ADD J [id number] PERFORMED BY: [facility] [id number] Cholesterol in VLDL [Mass/Vol] 27 mg/dL Normal 5-40 [facility]; [facility] Work Phone: Comment on above: PATIENT WAS FASTINGC linical Information: ADD DRAW FEE [id number] ADD J [id number] PERFORMED BY: JAYLIN Paulinolin6370 [facility] [id number] Triglyceride [Mass/Vol] 136 mg/dL Normal 0-149 [facility]; [facility] Work Phone: Comment on above: PATIENT WAS FASTINGC linical Information: ADD DRAW FEE [id number] ADD J [id number] PERFORMED BY: JAYLIN [facility] Hexeoc1491 [facility] [id number] T3, FREE (TRIDOTHYRONINE) ([id number] [id number])Ordered By: Lesli Márquez on 11-25-2008 Free T3 [Mass/Vol] 2.8 pg/mL Normal 2.3-4.[address] [facility] Internal [facility]; [facility] Work Phone: Comment on above: PATIENT WAS FASTINGP ERFORMED BY: JAYLIN [facility] Rhrkqd7345 [facility] [id number] T4, FREE (THYROXINE) ([id number]) Ordered By: Lesli Márquez on 11-25-2008 Free T4 [Mass/Vol] 1.04 ng/dL Normal 0.61-1.[address] [facility]; [facility] Work Phone: Comment on above: PATIENT WAS FASTINGP ERFORMED BY: JAYLIN [facility] [id number] TSH ([id number])Ordered By: Nick Márquez on 11-25-2008 TSH Qn 2.662 {uIU/mL} Normal 0.450-4.50 0 [facility]; [facility] Work Phone: Comment on above: PATIENT WAS FASTINGP ERFORMED BY: JAYLIN [facility]6370 [facility] [id number] Vital Signs Date Time Vital Sign Value Performing Clinician Facility 02-11-2025 09:19-0400 Body temperature 98.2 [degF] Dr. Lesli Márquez DO Work Phone: [facility] 02-11-2025 09:19-0400 Body weight 127.[address] Lesli Márquez DO Work Phone: [facility] 02-11-2025 09:19-0400 Diastolic blood pressure 88 mm[Hg] Dr. Lesli Márquez DO Work Phone: [facility] 02-11-2025 09:19-0400 Heart rate 88 /min Dr. Lesli Márquez DO Work Phone: [facility] 02-11-2025 09:19-0400 Respiratory rate 17 /min Dr. Lesli Márquez DO Work Phone: [facility] 02-11-2025 09:19-0400 SaO2% (BldA) [Mass fraction] 98 % Dr. Lesli Márquez DO Work Phone: [facility] 02-11-2025 09:19-0400 Systolic blood pressure 148 mm[Hg] Dr. Lesli Márquez DO Work Phone: [facility] 03-13-2023 07:05-0400 Body height 169.55 cm [facility]; [facility] Work Phone: 03-13-2023 07:05-0400 Body mass index (BMI) [Ratio] 41.54 kg/m2 [facility]; [facility] Work Phone: 03-13-2023 07:05-0400 Body surface area Derived from formula 2.27 m2 [facility]; [facility] Work Phone: 03-13-2023 07:05-0400 Body temperature 97 [degF] [facility]; [facility] Work Phone: 03-13-2023 07:05-0400 Body weight 119.41 kg [facility]; [facility] Work Phone: 03-13-2023 07:05-0400 Diastolic blood pressure 80 mm[Hg] [facility]; [facility] Work Phone: Comment on above: Patient Position: Sitting; Cuff Location : Left Arm; Cuff Size: Standard 03-13-2023 07:05-0400 Heart rate 98 /min [facility]; [facility] Work Phone: Comment on above: Pattern: Regular 03-13-2023 07:05-0400 Respiratory rate 16 /min [facility]; [facility] Work Phone: Comment on above: Pattern: Unlabored 03-13-2023 07:05-0400 SaO2% (BldA) [Mass fraction] 97 % [facility]; [facility] Work Phone: Comment on above: Room air 03-13-2023 07:05-0400 Systolic blood pressure 120 mm[Hg] [facility]; [facility] Work Phone: Comment on above: Patient Position: Sitting; Cuff Location : Left Arm; Cuff Size: Standard 11-14-2022 11:40-0500 Body height 169.55 cm [facility]; [facility] Work Phone: 11-14-2022 11:40-0500 Body mass index (BMI) [Ratio] 40.45 kg/m2 [facility]; [facility] Work Phone: 11-14-2022 11:40-0500 Body surface area Derived from formula 2.24 m2 [facility]; [facility] Work Phone: 11-14-2022 11:40-0500 Body temperature 97.8 [degF] [facility]; [facility] Work Phone: 11-14-2022 11:40-0500 Body weight 116.29 kg Kayela [employer] [facility]; [facility] Work Phone: 11-14-2022 11:40-0500 Diastolic blood pressure 80 mm[Hg] [facility]; [facility] Work Phone: Comment on above: Patient Position: Sitting; Cuff Location : Left Arm; Cuff Size: Standard 11-14-2022 11:40-0500 Heart rate 110 /min [facility]; [facility] Work Phone: Comment on above: Pattern: Regular 11-14-2022 11:40-0500 Respiratory rate 16 /[facility]; [facility] Work Phone: Comment on above: Pattern: Unlabored 11-14-2022 11:40-0500 SaO2% (BldA) [Mass fraction] 98 % [facility]; [facility] Work Phone: Comment on above: Room air 11-14-2022 11:40-0500 Systolic blood pressure 130 mm[Hg] [facility]; [facility] Work Phone: Comment on above: Patient Position: Sitting; Cuff Location : Left Arm; Cuff Size: Standard 10-09-2022 13:10-0500 Body temperature 96.4 [degF] [facility]; [facility] Work Phone: 10-09-2022 13:10-0500 Diastolic blood pressure 80 mm[Hg] [facility] Work Phone: Comment on above: Patient Position: Sitting; Cuff Location : Left Arm; Cuff Size: Standard 10-09-2022 13:10-0500 Heart rate 75 /min [facility]; [facility] Work Phone: Comment on above: Pattern: Regular 10-09-2022 13:10-0500 Respiratory rate 16 /min [facility]; [facility] Work Phone: Comment on above: Pattern: Unlabored 10-09-2022 13:10-0500 SaO2% (BldA) [Mass fraction] 99 % [facility]; [facility] Work Phone: Comment on above: Room air 10-09-2022 13:10-0500 Systolic blood pressure 132 mm[Hg] [facility]; [facility] Work Phone: Comment on above: Patient Position: Sitting; Cuff Location : Left Arm; Cuff Size: Standard 09-11-2022 15:09-0500 Body height 169.55 cm [facility]; [facility] Work Phone: 09-11-2022 15:09-0500 Body mass index (BMI) [Ratio] 40.45 kg/m2 [facility]; [facility] Work Phone: 09-11-2022 15:09-0500 Body surface area Derived from formula 2.24 m2 [facility]; [facility] Work Phone: 09-11-2022 15:09-0500 Body temperature 96.9 [degF] [facility]; [facility] Work Phone: 09-11-2022 15:09-0500 Body weight 116.29 kg [facility]; [facility] Work Phone: 09-11-2022 15:09-0500 Diastolic blood pressure 84 mm[Hg] [facility]; [facility] Work Phone: Comment on above: Patient Position: Sitting; Cuff Location : Left Arm; Cuff Size: Standard 09-11-2022 15:09-0500 Heart rate 99 /min [facility]; [facility] Work Phone: Comment on above: Pattern: Regular 09-11-2022 15:09-0500 Respiratory rate 16 /min [facility]; [facility] Work Phone: Comment on above: Pattern: Unlabored 09-11-2022 15:09-0500 SaO2% (BldA) [Mass fraction] 99 % Austin Whittingtonford [facility]; [facility] Work Phone: Comment on above: Room air 09-11-2022 15:09-0500 Systolic blood pressure 124 mm[Hg] Austin Whittingtonford [facility]; [facility] Work Phone: Comment on above: Patient Position: Sitting; Cuff Location : Left Arm; Cuff Size: Standard 08-16-2022 08:38-0400 Body height 169.55 cm Saleem Rodriguez LPN [facility]; [facility] Work Phone: 08-16-2022 08:38-0400 Body mass index (BMI) [Ratio] 40.55 kg/m2 Saleem Rodriguez LPN [facility]; [facility] Work Phone: 08-16-2022 08:38-0400 Body surface area Derived from formula 2.24 m2 Saleem Rodriguez LPN [facility]; [facility] [...] 08-14-2022 16:03-0400 Diastolic blood pressure 92 mm[Hg] [facility] Work Phone: 08-14-2022 16:03-0400 Heart rate 100 /min [facility] Work Phone: 08-14-2022 16:03-0400 Respiratory rate 15 /min [facility] Work Phone: 08-14-2022 16:03-0400 SaO2% (BldA) [Mass fraction] 99 % [facility] Work Phone: 08-14-2022 16:03-0400 Systolic blood pressure 163 mm[Hg] [facility] Work Phone: 08-14-2022 13:43-0400 Body height 165.1 cm [facility] Work Phone: 08-14-2022 13:43-0400 Body mass index (BMI) [Ratio] 20.5 kg/m2 [facility] Work Phone: 08-14-2022 13:43-0400 Body temperature 98.3 [degF] [facility] Work Phone: 08-14-2022 13:43-0400 Body weight 56.1 kg [facility] Work Phone: 07-10-2022 16:04-0400 Body height 169.55 cm Austin [facility]; [facility] Work Phone: 07-10-2022 16:04-0400 Body mass index (BMI) [Ratio] 41.68 [facility]; [facility] Work Phone: 07-10-2022 16:04-0400 Body surface area Derived from formula 2.27 m2 [facility]; [facility] Work Phone: 07-10-2022 16:04-0400 Body temperature 97.1 [degF] [facility]; [facility] Work Phone: 07-10-2022 16:04-0400 Body weight 119.81 kg [facility]; [facility] Work Phone: 07-10-2022 16:04-0400 Diastolic blood pressure 80 mm[Hg] [facility]; [facility] Work Phone: Comment on above: Patient Position: Sitting; Cuff Location : Left Arm; Cuff Size: Standard 07-10-2022 16:04-0400 Heart rate 102 /min [facility]; [facility] Work Phone: Comment on above: Pattern: Regular 07-10-2022 16:04-0400 Respiratory rate 16 /min [facility]; [facility] Work Phone: Comment on above: Pattern: Unlabored 07-10-2022 16:04-0400 SaO2% (BldA) [Mass fraction] 97 % [facility]; [facility] Work Phone: Comment on above: Room air 07-10-2022 16:04-0400 Systolic blood pressure 130 mm[Hg] [facility]; [facility] Work Phone: Comment on above: Patient Position: Sitting; Cuff Location : Left Arm; Cuff Size: Standard 05-16-2022 08:35-0400 Body height 169.55 cm Sofiya [facility]; [facility] Work Phone: 05-16-2022 08:35-0400 Body mass index (BMI) [Ratio] 42.29 kg/m2 [facility]; [facility] Work Phone: 05-16-2022 08:35-0400 Body surface area Derived from formula 2.28 m2 Sofiya Logan [facility]; [facility] Work Phone: 05-16-2022 08:35-0400 Body temperature 97.3 [degF] Sofiya Logan [employer] [facility]; [facility] Work Phone: Comment on above: Method: Infrared 05-16-2022 08:35-0400 Body weight 121.56 kg Sofiya Logan [facility]; [facility] Work Phone: 05-16-2022 08:35-0400 Diastolic blood pressure 84 mm[Hg] Sofiya Logan [facility]; [facility] Work Phone: Comment on above: Patient Position: Sitting; Cuff Location : Left Arm; Cuff Size: Standard 05-16-2022 08:35-0400 Heart rate 104 /min Sofiya Logan [facility]; [facility] Work Phone: Comment on above: Pattern: Regular 05-16-2022 08:35-0400 Respiratory rate 18 /min Sofiya Logan [facility]; [facility] Work Phone: Comment on above: Pattern: Unlabored 05-16-2022 08:35-0400 SaO2% (BldA) [Mass fraction] 97 % Sofiya Logan [facility]; [facility] Work Phone: Comment on above: Room air 05-16-2022 08:35-0400 Systolic blood pressure 128 mm[Hg] Sofiya Logan [facility]; [facility] Work Phone: Comment on above: Patient Position: Sitting; Cuff Location : Left Arm; Cuff Size: Standard 03-28-2022 10:50-0400 Body height 169.55 cm Lesli Márquez DO Work Phone: [facility]; [facility] Work Phone: Comment on above: R arm 168/110 - adn left arm 131/70 03-28-2022 10:50-0400 Body mass index (BMI) [Ratio] 43.24 kg/m2 Lesli Darinel DO Work Phone: [facility]; [facility] Work Phone: Comment on above: R arm 168/110 - adn left arm 03-28-2022 10:50-0400 Body surface area Derived from formula 2.31 m2 Lesli Márquez DO Work Phone: [facility]; [facility] Work Phone: Comment on above: R arm 168/110 - adn left arm 03-28-2022 10:50-0400 Body temperature 97.3 [degF] Lesli Márquez DO Work Phone: [facility]; [facility] Work Phone: Comment on above: Method: Infrared R arm 168/110 - adn left arm 03-28-2022 10:50-0400 Body weight 124.29 kg Lesli Márquez DO Work Phone: [facility]; [facility] Work Phone: Comment on above: R arm 168/110 - adn left arm 03-28-2022 10:50-0400 Diastolic blood pressure 110 mm[Hg] Lesli Márquez DO Work Phone: [facility]; [facility] Work Phone: Comment on above: Patient Position: Sitting; Cuff Location : Left Arm; Cuff Size: Standard R arm 168/110 - adn left arm 03-28-2022 10:50-0400 Heart rate 86 /min Lesli Márquez DO Work Phone: [facility]; [facility] Work Phone: Comment on above: Pattern: Regular R arm 168/110 - adn left arm 03-28-2022 10:50-0400 Respiratory rate 18 /min Lesli Márquez DO Work Phone: [facility]; [facility] Work Phone: Comment on above: Pattern: Unlabored R arm 168/110 - adn left arm 131/03-28-2022 10:50-0400 SaO2% (BldA) [Mass fraction] 98 % Lesli Márquez DO Work Phone: [facility]; [facility] Work Phone: Comment on above: Room air R arm 168/110 - adn left arm 131/70 03-28-2022 10:50-0400 Systolic blood pressure 168 mm[Hg] Lesli Márquez DO Work Phone: [facility]; [facility] Work Phone: Comment on above: Patient Position: Sitting; Cuff Location : Left Arm; Cuff Size: Standard R arm 168/110 - adn left arm 131/70 03-11-2022 14:02-0400 Body height 169.55 cm Alycia Slarb REYES [facility]; [facility] Work Phone: 03-11-2022 14:02-0400 Body mass index (BMI) [Ratio] 43.71 kg/m2 Aylcia Slarb [employer] [facility]; [facility] Work Phone: 03-11-2022 14:02-0400 Body surface area Derived from formula 2.32 m2 Alycia Slarb [employer] DR[employer]UCK DRIVER [facility]; [facility] Work Phone: 03-11-2022 14:02-0400 Body temperature 97.1 [degF] Alycia Slarb [employer] DR[employer] TRUCK DRIVER [facility]; [facility] Work Phone: 03-11-2022 14:02-0400 Body weight 125.65 kg Alycia Slarb [employer] DR[employer] TRUCK DRIVER [facility]; [facility] Work Phone: 03-11-2022 14:02-0400 Diastolic blood pressure 88 mm[Hg] Alycia Slarb [employer] DRIVER [facility]; [facility] Work Phone: Comment on above: Patient Position: Sitting; Cuff Location : Left Arm; Cuff Size: Standard 03-11-2022 14:02-0400 Heart rate 126 /min Alycia Slarb [employer]UCK DRIVER [facility]; [facility] Work Phone: Comment on above: Pattern: Regular 03-11-2022 14:02-0400 Respiratory rate 16 /min Alycia Gunnarrb [employer]UCK DRIVER [facility]; [facility] Work Phone: Comment on above: Pattern: Unlabored 03-11-2022 14:02-0400 SaO2% (BldA) [Mass fraction] 98 % Alycia Gunnarrb [employer] TRUCK DRIVER [facility]; [facility] Work Phone: Comment on above: Room air 03-11-2022 14:02-0400 Systolic blood pressure 142 mm[Hg] Alycia Gunnarrb [employer] DRIVER [facility]; [facility] Work Phone: Comment on above: Patient Position: Sitting; Cuff Location : Left Arm; Cuff Size: Standard 03-02-2022 09:24-0400 Diastolic blood pressure 96 mm[Hg] [facility] Work Phone: 03-02-2022 09:24-0400 Heart rate 83 /min [facility] Work Phone: 03-02-2022 09:24-0400 Respiratory rate 18 /min [facility] Work Phone: 03-02-2022 09:24-0400 SaO2% (BldA) [Mass fraction] 98 % [facility] Work Phone: 03-02-2022 09:24-0400 Systolic blood pressure 154 mm[Hg] [facility] Work Phone: 03-02-2022 07:26-0400 Body height 167.64 cm [facility] Work Phone: 03-02-2022 07:26-0400 Body mass index (BMI) [Ratio] 44.4 kg/m2 [facility] Work Phone: 03-02-2022 07:26-0400 Body temperature 97.9 [degF] [facility] Work Phone: 03-02-2022 07:26-0400 Body weight 124.7 kg [facility] Work Phone: 08-08-2010 12:15-0400 Body height [...] : Left Arm; Cuff Size: Large 01-11-2009 09:010400 Body height 169.55 cm Octavia Alejo RN [...] : Left Arm; Cuff Size: Large 01-11-2009 09:010400 Head Occipital-frontal circumference 0 cm Octavia Alejo [...] Date Encounter Type Care Provider Facility Start: 08-06-2025 End: 08-06-2025 ambulatory Lesli Márquez Facility:[facility] Start: 07-28-2025 End: 07-28-2025 ambulatory Gardenia Dawson Facility:[facility] Start: 04-12-2025 End: 04-12-[address] Lesli Márquez DO Work Phone: -[facility] Start: 04-12-2025 End: 04-12-[address] Lesli Márquez DO -Radiology [facility] Work Phone: Start: 04-12-2025 End: 04-12-2025 ambulatory Lesli Márquez Facility:[facility] Start: 03-19-2025 End: 03-19-[address] Lesli Márquez DO Work Phone: [facility] Work Phone: Start: 03-19-2025 End: 03-19-[address] Lesli Márquez DO -Laboratory Work Phone: Start: 03-19-2025 End: 03-19-2025 ambulatory Lesli Márquez Facility:[facility] Start: 02-11-2025 End: 02-11-2025 Patient encounter procedure [facility] Work Phone: Start: 02-11-2025 End: 02-11-2025 ambulatory Gardenia Dawson Facility:[facility] Start: 02-10-2025 End: 02-10-[address] Lesli Márquez DO Work Phone: [facility] Work Phone: Start: 02-10-2025 End: 02-10-[address] Lesli Márquez DO -Cat Scan, [facility] Work Phone: Start: 02-10-2025 End: 02-10-2025 ambulatory Lesli Márquez Facility:[facility] Start: 12-25-2024 End: 12-25-2024 Subsequent hospital visit by physician Harinder Erazo [address] [place] [address] Comment on above: Other abnormal gluco se Start: 12-25-2024 End: 12-25-2024 ambulatory LESLI MÁRQUEZ [facility] Start: 11-06-2024 End: 11-06-[address] Lesli Márquez DO -Laboratory Work Phone: Start: 11-06-2024 End: 11-06-2024 ambulatory Lesli Darinel Facility:[facility] Start: 10-10-2023 End: 10-10-[address] [facility] Work Phone: Start: 10-10-2023 End: 10-10-[address] [facility] Work Phone: Start: 10-08-2023 End: 10-08-[address] [facility] Work Phone: Start: 10-08-2023 End: 10-08-[address] [facility] Work Phone: Start: 09-23-2023 End: 09-23-2023 Emergency department patient visit [facility] Start: 04-08-2023 End: 04-08-[address] [facility] Work Phone: Start: 04-08-2023 End: 04-08-[address] [facility] D[facility] Start: 03-13-2023 End: 03-13-2023 Office outpatient visit 25 minutes Lesli Darinel [...] 08-14-2022 End: 08-14-2022 Emergency department patient visit [facility] Start: 07-10-2022 End: 07-10-2022 Office outpatient visit 15 minutes Lesli Darinel DO Work Phone: [facility] Start: 05-16-2022 End: 05-16-2022 Office outpatient visit 10 minutes Lesli Darinel DO Work Phone: [facility] Start: 05-08-2022 End: 05-08-[address] [facility] Start: 05-08-2022 End: 05-11-2022 Office outpatient visit 5 minutes Lesli Darinel DO Work Phone: [facility] Start: 03-29-2022 End: 03-29-2022 Office outpatient visit 5 minutes Lesli Darinel DO Work Phone: [facility] Start: 03-28-2022 End: 03-28-2022 Office outpatient visit 25 minutes Lesli Darinel DO Work Phone: [facility] Start: 03-22-2022 End: 03-22-2022 Patient encounter procedure [facility] Start: 03-11-2022 End: 03-11-2022 Office outpatient visit 25 minutes Lesli Darinel DO Work Phone: [facility] Start: 03-11-2022 Review Lesli Fearo n DO Work Phone: [facility] Start: 03-08-2022 End: 03-08-2022 Phone Encounter Lesli Darinel DO Work Phone: [facility] Start: 03-06-2022 End: 03-06-[address] [facility] Start: 03-05-2022 End: 03-05-2022 Annotation/Addendum Lesli Darinel DO Work Phone: [facility] Start: 03-02-2022 End: 03-02-2022 Emergency department patient visit [facility] Start: 08-09-2010 End: 08-09-2010 Annotation/Addendum Lesli Darinel DO Work Phone: [facility] Start: 08-08-2010 End: 08-08-2010 Patient encounter procedure Lesli Márquez DO Work Phone: [facility] Start: 05-24-2010 End: 05-24-2010 Patient encounter procedure Lesli Márquez DO Work Phone: [facility] Start: 07-20-2009 End: 07-20-2009 Patient encounter procedure Lesli Márquez DO Work Phone: [facility] Start: 01-11-2009 End: 01-11-2009 Patient encounter procedure Lesli Suon DO Work Phone: [facility] Start: 12-28-2008 End: 12-28-2008 Patient encounter procedure Lesli Márquez DO Work Phone: [facility] Start: 11-30-2008 End: 11-30-2008 Office outpatient visit 10 minutes Lesli Márquez DO Work Phone: [facility] Start: 07-28-2008 End: 07-28-2008 Historical Summary Lesli Suon DO Work Phone: [facility] Start: 07-27-2008 End: 07-27-2008 Historical Summary Lesli Suon DO Work Phone: [facility] Start: 07-27-2008 End: 07-27-2008 Patient encounter procedure Lesli Márquez DO Work Phone: [facility] Procedures Date Procedure Procedure Detail Performing Clinician Start: 04-12-2025 Complete x-ray skele hermes survey Dr. Lesli Márquez DO Work [...] Density Study Procedure Note: See Note; NOTES: [facility] Imaging Services [address] [place] [id number] Dexa Bone Density Study MR#: [id number] Acct: [id number] Name: ALIX PALMER Rep #: [id number] : 1975 F 47 From: Hudson olmos MD PCP: Dr. Lesli Márquez DO Status: DEP CLI Study: Dexa Bone Density Study Date of Exam: 04/08/23 Exam# [id number] Ordering Dr: Lesli Márquez DO STUDY: DUAL [...] EDT , CC: Dr. Lesli Márquez DO Concession Supervisor: Signed Lesli Márquez DO Work Phone: Start: 08-14-2022 End: 08-15-2022 Emergency Department Summary Procedure Note: See Note; NOTES: [facility] Medical Records Department [address] [place] [address] Emergency Department Summary 08/14/22 MR#: [id number] Acct: [id number] Name: ALIX PALMER Rep #: [id number] : 1975 46 From: Lionel Garcia MD PCP: Dr. Lesli Márquez, DO Status:DEP ER Location: ED HPI History [...] dry winter air. She has taken no xxoe-aks-opmojxw medications recently except for a half dose of Tylenol PM last night to help her get to sleep. No decongestants. PFSH PFS Medical History COVID High blood pressure Nasal [...] % (Auto) 61.8 Lymph % (Auto) 28.1 Winn % (Auto) 8.1 Eos % (Auto) 1.3 [...] Sl. Cloudy Urine pH 6.0 Ur Specific [place] 1.010 Urine Protein Negative Urine Glucose (UA) [...] Primary Care Provider: Lesli Márquez Referrals: Lesli Márquez, [Primary Care Provider] - Keep Bety appointment (Or sooner if able) Activity Restrictions/Additional Instructions: Get any osnf-vmx-wkcaeas nasal decongestant spray containing oxymetazoline or phenylephrine. [...] problems, contact your Primary Care Provider. Call [employer] [facility] ([phone]) or report to the closest Emergency Room. Call 911 if necessary. 08/15/22 0028 <Electronically signed by Lionel Garcia MD> Cosigner Signature (if applicable): CC: Dr. Lesli Márquez, DO Signed Lesli Márquez DO Work Phone: Start: 08-14-2022 End: 08-16-2022 12 Lead EKG Procedure Note: See Note; NOTES: [facility] Cardiovascular Services [address] [place] [address] 12 Lead EKG 08/14/22 1351 MR#: [id number] Acct: [id number] Name: ALIX PALMER Rep #: [id number] : 1975 46 From: Gla Espinal MD Attending Dr: Status: DEP ER [...] Abnormal ECG Confirmed by EFRA DURBIN, GATITO ([id number]), script editor FREDA JOSEPH ([id number]) on 08/16/2022 2:07:28 PM Referred By: NATIVIDAD/TARI Confirmed By:NOE ESPINAL MD 08/16/22 1407 Date Gal Espinal MD CC: Dr. Lioenl Garcia MD; Dr. Lesli Márquez DO; ED PHYSICIAN PROVIDER Signed Lesli Márquez DO Work Phone: Start: 08-14-2022 End: 08-14-2022 Chest 1 View (Portable) Procedure Note: See Note; NOTES: [facility] Imaging Services [address] [place] [id number] Chest 1 View (Portable) MR#: [id number] Acct: [id number] Name: ALIX PALMER Rep #: [id number] : 1975 F 46 From: Hudson olmos MD PCP: Dr. Lesli Márquez DO Status: REG ER Study: Chest 1 View (Portable) Date of Exam: 08/14/22 Exam# [id number] Ordering Dr: Provider,Ed P. STUDY: X-RAY CHEST [...] Hudson Calderon MD at 14:12 EDT , CC: Dr. Lesli Márquez DO; ED PHYSICIAN PROVIDER Concession Supervisor: Signed Lesli Márquez DO Work Phone: Start: 08-14-2022 Plain chest X-ray Start: 03-22-2022 End: 03-31-2022 MRI Abd WITH and W/O Contrast Comments: See Note; NOTES: [facility] Imaging Services [address] [place] [address] MRI Abd WITH and W/O Contrast MR#: [id number] Acct: [id number] Name: ALIX PALMER Rep #: [id number] : 1975 F 46 From: Gonzalo condon MD PCP: Dr. Lesli Márquez DO Status: REG CLI Study: MRI Abd WITH and W/O Contrast Date of Exam: Exam# [id number] Ordering Dr: Lesli Márquez DO STUDY: MRI [...] Signed: Gonzalo Bee MD at 23:58 EDT Reading Location ID and State: [facility] / [place] Tel , Service support , CC: Dr. Lesli Márquez DO Concession Supervisor: Signed Lesli Márquez DO Work Phone: Start: 03-22-2022 MRI of abdomen with contrast Start: 03-02-2022 End: 03-04-2022 Emergency Department Summary Comments: See Note; NOTES: [facility] Medical Records Department [address] [place] [id number] Emergency Department Summary 03/02/22 MR#: [id number] Acct: [id number] Name: ALIX PALMER Rep #: [id number] : 1975 46 From: Pollo Pinto MD [...] % (Auto) 58.5 Lymph % (Auto) 30.3 Winn % (Auto) 7.6 Eos % (Auto) 2.5 [...] Color Urine Clarity Urine pH Ur Specific [place] Urine Protein Urine Glucose (UA) Urine Ketones Urine Occult Blood Urine Nitrite Urine Bilirubin Urine Urobilinogen Ur Leukocyte Esterase Urine RBC Urine WBC Ur Squamous Epith Cells Urine Bacteria Urine Mucus 03/02/22 09:26 WBC RBC Hgb Hct MCV MCH MCHC RDW Std Deviation RDW Coeff of Diane Plt Count MPV Immature Gran % (Auto) Neut % (Auto) Lymph % (Auto) Winn % (Auto) Eos % (Auto) Baso % [...] Clarity Clear Urine pH 6.5 Ur Specific [place] 1.005 Urine Protein Negative Urine Glucose (UA) [...] Paper guidelines (Tom, et al. JACR 2017; 14(11):2768-8770.) suggest the following. For patients with low [...] 9:13 EDT Reading Location ID and State: [facility] / [place] , Service support , Discharge Plan Triage Chief Complaint: Abd Pain ED Provider: Pollo Pinto Dx/Rx/DC Orders Clinical Impression: Abdominal pain Instructions: Abdominal Pain Prescriptions: New ondansetron 4 mg tablet,disintegrating 4 mg PO Q6H PRN (Reason: nausea and vomiting) Qty: 10 RF: 0 Primary Care Provider: Lesli Márquez Referrals: Lesli Márquze DO [Primary Care Provider] - 1-2 Weeks [...] problems, contact your Primary Care Provider. Call [employer] [facility] ([phone]) or report to the closest Emergency Room. Call 911 if necessary. 03/02/22 0957 <Electronically signed by Pollo Pinto MD> Cosigner Signature (if applicable): CC: Dr. Lesli Márquez DO Signed Lesli Márquez DO Work Phone: Start: 03-02-2022 End: 03-04-2022 Abdomen/Pelvis W IV Cont ONLY Comments: See Note; NOTES: [facility] Imaging Services [address] [place] [id number] Abdomen/Pelvis W IV Cont ONLY MR#: [id number] Acct: [id number] Name: ALIX PALMER Rep #: [id number] : 1975 F 46 From: Jose Carlos Barrera PCP: Dr. Lesli Márquez DO Status: PRE ER Study: Abdomen/Pelvis W IV Cont ONLY Date of Exam: Exam# [id number] Ordering Dr: Pollo Pinto MD STUDY: CT [...] Paper guidelines (Tom, et al. JACR 2017; 14(11):8108-8990.) suggest the following. For patients with low [...] Pollo Pinto MD; Dr. 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 Eduardo Operation on vertebra Sofiya Gravius [facility] Comment on above: 2010 Dr. Eduardo Operation on vertebra Sofiya Gravius [facility] Comment on above: 2010 Dr. Eduardo Operation on vertebra Kayela [place] [facility] Comment on above: 2010 Dr. 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 Eduardo Operation on vertebra Kayela Nguyen [facility] Comment on above: 2010 Dr. Eduardo Operation on vertebra Kayela Nguyen [facility] Comment on above: 2010 Dr. Eduardo Operation on vertebra Kayela Nguyen [facility] Comment on above: 2010 Dr. Eduardo Operation on vertebra Kayela [place] [facility] Comment on above: 2010 Dr. 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 Tonsillectomy Tonsillectomy Kayela Radfor d CLAIMS SPECIALIST Tonsillectomy Tonsillectomy Kayela Radfor d CLAIMS SPECIALIST Tonsillectomy Tonsillectomy Kayela Radfor d CLAIMS SPECIALIST Tonsillectomy Tonsillectomy Kayela Radfor d CLAIMS SPECIALIST Plan of Treatment Date Care Activity Detail Author Start: 2027 Zoster Vaccines (1 of 2) Zoste r Vaccines (1 of 2) [facility] Start: 04-08-2025 Screening for osteoporosis Bone Density Scan [facility] Start: 06-20-2024 COVID-19 Vaccine ( season) COVID-19 Vaccine ( season) [facility] Start: 06-20-2024 Influenza vaccination Influenza Vacc ine (#1) [facility] Start: 04-08-2023 Dual energy X-ray absorptiometry Dexa Bone Density Study [facility] Start: 03-13-2023 Procedure Education Eprescribe d [...] Phone: Start: 07-10-2022 Lipid panel LIPID PANEL (97963) [facility]; [facility] Work [...] auto&auto difrntl wbc CBC W/AUTO DIFF WBC (45274) [facility] Work Phone: Start: 03-11-2022 Procedure Education Eprescribe d prescriptions (G8553) [facility] Work Phone: Start: 03-11-2022 Provider Instruction s for Treatment [facility] Work Phone: Start: 03-05-2022 25 hydroxy includes fractions if performed CALCIFEDIOL (34326) [facility] Work Phone: Start: 03-05-2022 Urine albumin quantitative MICROALBUMIN: CREATININE RATIO (56232) AND (95403) [facility]; [facility] Work Phone: Start: 03-05-2022 Assay of thyroid stimulating hormone tsh TSH (THYROID STIMULATING HORMONE) (31414) [facility]; [facility] Work Phone: Start: 03-05-2022 Blood count complete automated CBC & PLATELETS (AUTO) (10245) [facility]; [facility] Work Phone: Start: 03-05-2022 Comprehensive metabo lic panel METABOLIC PANEL, COMPREHENSIVE (59129) [facility]; [facility] Work Phone: Start: 03-05-2022 Lipid panel LIPID PANEL (69774) [facility]; [facility] Work Phone: Start: 2017 Screening for malign ant neoplasm of breast Mammogram [facility] Start: 05-24-2010 Provider Instruction s for Treatment [facility]; [facility] Work Phone: Start: 05-24-2010 25 hydroxy includes fractions if performed Vitamin D Hydroxy (51404) [facility]; [facility] Work Phone: Start: 05-24-2010 1 25 dihydroxy inclu haily fractions if performed VITAMIN D, 1, 25-DIHYDROXY (90135) [facility]; [facility] Work Phone: Start: 05-24-2010 Assay of thyroid stimulating hormone tsh TSH (81794) [facility]; [facility] Work Phone: Start: 05-24-2010 Protein electrophore tic fractj&quantj serum [facility]; [facility] Work Phone: Start: 05-24-2010 Sedimentation rate r bc non-automated SED RATE ERYTHROCYTE (56673) [facility]; [facility] Work Phone: Start: 05-24-2010 Assay of phosphorus inorganic PHOSPHORUS (49395) [facility]; [facility] Work Phone: Start: 05-24-2010 Assay of parathormone PARATHORMONE ( 20021) [facility]; [facility] Work Phone: Start: 05-24-2010 Hepatic function panel HEPATIC FUNCTION PANEL (37656) [facility]; [facility] Work Phone: Start: 05-24-2010 Blood count complete automated CBC (AUTO) (35632) [facility]; [facility] Work Phone: Start: 05-24-2010 Calcium total CALCIUM SERUM (41588) [facility]; [facility] Work Phone: Start: 05-24-2010 C-reactive protein C-REACTIVE PROTEIN (53698) [facility]; [facility] Work Phone: Start: 05-24-2010 Assay of phosphatase alkaline ALKALINE PHOSPHATASE (48447) [facility]; [facility] Work [...] Phone: Start: 11-30-2008 Lipid panel LIPID PANEL (48974) [facility]; [facility] Work Phone: Comment on above: do in 6 mo Start: 07-27-2008 Provider Instruction s for Treatment [facility]; [facility] Work Phone: Start: 07-27-2008 Glucose quantitative blood xcpt reagent strip Glucose, PP/2 Hour (49757) [facility]; [facility] Work Phone: Start: 1999 DTaP/Tdap/Td Vaccine s (1 - Tdap) DTaP/Tdap/Td Vaccines (1 - Tdap) [facility] Start: 1998 Screening for malign ant neoplasm of cervix [facility] Start: 1996 Hepatitis A Vaccines (1 of 2 - Risk 2-dose series) Hepatitis A Vaccines (1 of 2 - Risk 2-dose series) [facility] Start: 1996 Hepatitis B Vaccines (1 of 3 - 19+ 3-dose series) Hepatitis B Vaccines (1 of 3 - 19+ 3-dose series) [facility] Start: 1995 Diabetes mellitus screening Diabetes Screening [facility] Start: 1995 Hepatitis C screening Hepatitis C Sc [facility] Start: 1978 MMR Vaccines (1 of 1 - Standard series) MMR Vaccines (1 of 1 - Standard series) [facility] Start: 1977 HIV screening HIV Screening [facility] Start: 1977 Lipid panel Lipid Panel [facility] Start: 1977 Screening for malign ant neoplasm of colon [facility] Start: 1977 Yearly Adult Physical Yearly Adult P hysical [facility] End: 12-25-2024 CT for calcium scoring WO contrast and CTA W contrast IV Heart and coronary arteries [facility] Service Area Work Phone: Comment on above: Once for 1 Occurrenc es starting 12/25/2024 until 12/25/2024 CTA Chest vessels WO and W contrast IV [facility] Patient Education [facility] Work Phone: Patient referral [facility] Work Phone: [facility]; [...] Immunization Date Immunization Notes Care Provider [place] franco 08-13-2022 influenza, seasonal, injectable Lesli Darinel DO Work Phone: [facility] Work Phone: 08-13-2022 influenza virus vaccine, unspecified formulation [address] Work Phone: Payers Date Payer Category Payer Self-pay [id number] 2023 Worker's Compensation [id number] 2023 Managed Care (Private) [facility] [id number] 2021 Unknown [id number] 2010 Unknown [id number] 2008 Unknown [id number] 1975 Unknown [id number] 1975 Unknown [id number] 1975 Unknown [id number] Unknown [facility] *DO NOT USE* [id number] Unknown Unknown [facility] P[facility] [id number] Unknown [id number] Unknown [id number] 462 Unknown [id number] 462 Unknown [id number] 462 Unknown [id number] 462 Unknown [id number] 462 Unknown [id number] 462 Social History Date Type Detail Facility [facility] Work Phone: Start: 03-02-2022 End: 08-14-2022 Tobacco smoking status NHIS Unknown if ever smoked 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 Start: 02-15-2025 Sex Female (finding) [facility] Mental Status Date Assessment Result Facility 08-14-2022 Cognitive function Level Of Cons ciousness Awake;Alert;Appropriate;Follow s Commands [facility] Work Phone: Clinical Notes 02-10-2025 to 04-13-2025 Note Date & Type Note Facility 04-13-2025 Radiology Diagnostic study note [facility] Imaging Services [address] [place] [address] Bone Survey Comp(Axial&Append) MR#: [id number] Acct: [id number] Name: ALIX PALMER Rep #: [id number] : 1975 F 49 From: Eliot Santos MD PCP: Dr. Lesli Márqeuz, Status: RE G CLI Study:Bone Survey Comp(Axial&Append) Date of Exam: 04/12/25 Exam# [id number] Ordering Dr: Matt Márquez DO PROCEDURE: BONE [...] identified. [facility] CC: Dr. Lesli Márquez DO ~ Concession Supervisor: Signed [facility] 02-11-2025 Evaluation note Diagnosis Onset Date Resolution Thoracic aortic aneurysm acute February 11, 2025 8:24am [facility] Work Phone: 1(336) 142-289204-24-2025 Radiology Diagnostic study note [facility] Imaging Services [address] [place], [place] [address] Abdomen W/WO IV Contrast MR#: [id number] Acct: [id number] Name: ALIX PALMER Rep #: [id number] : 1975 F 49 From: Devin Crockett DO PCP: Dr. Lesli Márquez DO Status: RE G CLI Study:Abdomen W/WO IV Contrast Date of Exam: 02/10/25 Exam# [id number] Ordering Dr: Matt Márquez DO PROCEDURE: ABDOMEN [...] SHERLYN CC: Dr. Lesli Márquez, DO ~ Concession Supervisor: [facility]igned [facility] information available [facility] Work Phone: Evaluation note* Diagnosis Other abnormal glucose documented in this encounter [facility] Work Phone: Hospital Discharge instructions [...] on your liver. Zofran as needed for nausea.[facility] Work Phone: [facility] Work [facility] Work Phone: Hospital Discharge instructions Additional Instructions Get any [id number] nasal decongestant spray containing oxymetazoline or phenylephrine. [...] couple times a week if you are able.[facility] Work Phone: Instructions* Name Dates Details Patient Instructions Indication:Non-smoker Start:11-Mar-2022 Instruction Type:Provider Instructions for Treatment How to Access Health Informa tion Online using Patient Portal and 3rd [employer] Apps Indication:Non-smoker Start:11-Mar-2022 Instruction Type:Patient Education [facility] Work Phone: instructions* Name Dates Details Patient Instructions Indication:Non-smoker Start:11-Mar-2022 Instruction Type:Provider Instructions for Treatment How to Access Health Informa tion Online using Patient Portal and 3rd [employer] Apps Indication:Non-smoker Start:11-Mar-2022 Instruction Type:Patient Education [facility]; [facility] Work Phone: instructions* Name Dates Details Patient Instructions Indication:Non-smoker Start:28-Mar-2022 Instruction Type:Provider Instructions for Treatment How to Access Health Informa tion Online using Patient Portal and 3rd [employer] Apps Indication:Non-smoker Start:28-Mar-2022 Instruction Type:Patient Education Patient Instructions Indication:Non-smoker Start:11-Mar-2022 Instruction Type:Provider Instructions for Treatment How to Access Health Informa tion Online using Patient Portal and 3rd [employer] Apps Indication:Non-smoker Start:11-Mar-2022 Instruction Type:Patient Education [facility]; [facility] Work Phone: instructions* Name Dates Details Patient Instructions Indication:Non-smoker Start:28-Mar-2022 Instruction Type:Provider Instructions for Treatment How to Access Health Informa tion Online using Patient Portal and 3rd [employer] Apps Indication:Non-smoker Start:28-Mar-2022 Instruction Type:Patient Education Patient Instructions Indication:Non-smoker Start:11-Mar-2022 Instruction Type:Provider Instructions for Treatment How to Access Health Informa tion Online using Patient Portal and [employer]rd [employer] Apps Indication:Non-smoker Start:11-Mar-2022 Instruction Type:Patient Education [facility]; [facility] Work Phone: instructions* Name Dates Details Patient Instructions Indication:Morbid obesity Start:16-May-2022 Instruction Type:Provider Instructions for Treatment How to Access Health Informa tion Online using Patient Portal and [employer]rd [employer] Apps Indication:Morbid obesity Start:16-May-2022 Instruction Type:Patient Education Patient Instructions Indication:Non-smoker Start:28-Mar-2022 Instruction Type:Provider Instructions for Treatment How to Access Health Informa tion Online using Patient Portal and 3rd [employer] Apps Indication:Non-smoker Start:28-Mar-2022 Instruction Type:Patient Education Patient Instructions Indication:Non-smoker Start:11-Mar-2022 Instruction Type:Provider Instructions for Treatment How to Access Health Informa tion Online using Patient Portal and 3rd [employer] Apps Indication:Non-smoker Start:11-Mar-2022 Instruction Type:Patient Education [facility]; [facility] Work Phone: instructions* Name Dates Details Patient Instructions Indication:BMI 40.0-44.9, adult Start:10-Jul-2022 Instruction Type:Provider Instructions for Treatment How to Access Health Informa tion Online using Patient Portal and 3rd [employer] Apps Indication:BMI 40.0-44.9, adult Start:10-Jul-2022 Instruction Type:Patient Education Patient Instructions Indication:Morbid obesity Start:16-May-2022 Instruction Type:Provider Instructions for Treatment How to Access Health Informa tion Online using Patient Portal and 3rd [employer] Apps Indication:Morbid obesity Start:16-May-2022 Instruction Type:Patient Education Patient Instructions Indication:Non-smoker Start:28-Mar-2022 Instruction Type:Provider Instructions for Treatment How to Access Health Informa tion Online using Patient Portal and 3rd [employer] Apps Indication:Non-smoker Start:28-Mar-2022 Instruction Type:Patient Education Patient Instructions Indication:Non-smoker Start:11-Mar-2022 Instruction Type:Provider Instructions for Treatment How to Access Health Informa tion Online using Patient Portal and 3rd [employer] Apps Indication:Non-smoker Start:11-Mar-2022 Instruction Type:Patient Education [facility]; [facility] Work Phone: instructions* Name Dates Details Patient Instructions Indication:BMI 40.0-44.9, adult Start:10-Jul-2022 Instruction Type:Provider Instructions for Treatment How to Access Health Informa tion Online using Patient Portal and 3rd [employer] Apps Indication:BMI 40.0-44.9, adult Start:10-Jul-2022 Instruction Type:Patient Education Patient Instructions Indication:Morbid obesity Start:16-May-2022 Instruction Type:Provider Instructions for Treatment How to Access Health Informa tion Online using Patient Portal and 3rd [employer] Apps Indication:Morbid obesity Start:16-May-2022 Instruction Type:Patient Education Patient Instructions Indication:Non-smoker Start:28-Mar-2022 Instruction Type:Provider Instructions for Treatment How to Access Health Informa tion Online using Patient Portal and 3rd [employer] Apps Indication:Non-smoker Start:28-Mar-2022 Instruction Type:Patient Education Patient Instructions Indication:Non-smoker Start:11-Mar-2022 Instruction Type:Provider Instructions for Treatment How to Access Health Informa tion Online using Patient Portal and 3rd [employer] Apps Indication:Non-smoker Start:11-Mar-2022 Instruction Type:Patient Education [facility]; [facility] Work Phone: Instructions* Name Dates Details Patient Instructions Indication:Non-smoker Start:16-Aug-2022 Instruction Type:Provider Instructions for Treatment How to Access Health Informa tion Online using Patient Portal and 3rd [employer] Apps Indication:Non-smoker Start:16-Aug-2022 Instruction Type:Patient Education Patient Instructions Indication:BMI 40.0-44.9, adult Start:10-Jul-2022 Instruction Type:Provider Instructions for Treatment How to Access Health Informa tion Online using Patient Portal and 3rd [employer] Apps Indication:BMI 40.0-44.9, adult Start:10-Jul-2022 Instruction Type:Patient Education Patient Instructions Indication:Morbid obesity Start:16-May-2022 Instruction Type:Provider Instructions for Treatment How to Access Health Informa tion Online using Patient Portal and 3rd [employer] Apps Indication:Morbid obesity Start:16-May-2022 Instruction Type:Patient Education Patient Instructions Indication:Non-smoker Start:28-Mar-2022 Instruction Type:Provider Instructions for Treatment How to Access Health Informa tion Online using Patient Portal and 3rd [employer] Apps Indication:Non-smoker Start:28-Mar-2022 Instruction Type:Patient Education Patient Instructions Indication:Non-smoker Start:11-Mar-2022 Instruction Type:Provider Instructions for Treatment How to Access Health Informa tion Online using Patient Portal and 3rd [employer] Apps Indication:Non-smoker Start:11-Mar-2022 Instruction Type:Patient Education [facility]; [facility] Work Phone: Instructions* Name Dates Details Patient Instructions Indication:BMI 40.0-44.9, adult Start:11-Sep-2022 Instruction Type:Provider Instructions for Treatment How to Access Health Informa tion Online using Patient Portal and 3rd [employer] Apps Indication:BMI 40.0-44.9, adult Start:11-Sep-2022 Instruction Type:Patient Education Patient Instructions Indication:Non-smoker Start:16-Aug-2022 Instruction Type:Provider Instructions for Treatment How to Access Health Informa tion Online using Patient Portal and 3rd [employer] Apps Indication:Non-smoker Start:16-Aug-2022 Instruction Type:Patient Education Patient Instructions Indication:BMI 40.0-44.9, adult Start:10-Jul-2022 Instruction Type:Provider Instructions for Treatment How to Access Health Informa tion Online using Patient Portal and 3rd [employer] Apps Indication:BMI 40.0-44.9, adult Start:10-Jul-2022 Instruction Type:Patient Education Patient Instructions Indication:Morbid obesity Start:16-May-2022 Instruction Type:Provider Instructions for Treatment How to Access Health Informa tion Online using Patient Portal and 3rd [employer] Apps Indication:Morbid obesity Start:16-May-2022 Instruction Type:Patient Education Patient Instructions Indication:Non-smoker Start:28-Mar-2022 Instruction Type:Provider Instructions for Treatment How to Access Health Informa tion Online using Patient Portal and 3rd [employer] Apps Indication:Non-smoker Start:28-Mar-2022 Instruction Type:Patient Education Patient Instructions Indication:Non-smoker Start:11-Mar-2022 Instruction Type:Provider Instructions for Treatment How to Access Health Informa tion Online using Patient Portal and 3rd [employer] Apps Indication:Non-smoker Start:11-Mar-2022 Instruction Type:Patient Education [facility]; [facility] Work Phone: instructions* Name Dates Details Patient Instructions Indication:BMI 40.0-44.9, adult Start:11-Sep-2022 Instruction Type:Provider Instructions for Treatment How to Access Health Informa tion Online using Patient Portal and 3rd [employer] Apps Indication:BMI 40.0-44.9, adult Start:11-Sep-2022 Instruction Type:Patient Education Patient Instructions Indication:Non-smoker Start:16-Aug-2022 Instruction Type:Provider Instructions for Treatment How to Access Health Informa tion Online using Patient Portal and 3rd [employer] Apps Indication:Non-smoker Start:16-Aug-2022 Instruction Type:Patient Education Patient Instructions Indication:BMI 40.0-44.9, adult Start:10-Jul-2022 Instruction Type:Provider Instructions for Treatment How to Access Health Informa tion Online using Patient Portal and 3rd [employer] Apps Indication:BMI 40.0-44.9, adult Start:10-Jul-2022 Instruction Type:Patient Education Patient Instructions Indication:Morbid obesity Start:16-May-2022 Instruction Type:Provider Instructions for Treatment How to Access Health Informa tion Online using Patient Portal and [employer]rd [employer] Apps Indication:Morbid obesity Start:16-May-2022 Instruction Type:Patient Education Patient Instructions Indication:Non-smoker Start:28-Mar-2022 Instruction Type:Provider Instructions for Treatment How to Access Health Informa tion Online using Patient Portal and [employer]rd [employer] Apps Indication:Non-smoker Start:28-Mar-2022 Instruction Type:Patient Education Patient Instructions Indication:Non-smoker Start:11-Mar-2022 Instruction Type:Provider Instructions for Treatment How to Access Health Informa tion Online using Patient Portal and [employer]rd [employer] Apps Indication:Non-smoker Start:11-Mar-2022 Instruction Type:Patient Education [facility]; [facility] Work Phone: Instructions* Name Dates Details Patient Instructions Indication:Non-smoker Start:09-Oct-2022 Instruction Type:Provider Instructions for Treatment How to Access Health Informa tion Online using Patient Portal and [employer]rd [employer] Apps Indication:Non-smoker Start:09-Oct-2022 Instruction Type:Patient Education Patient Instructions Indication:BMI 40.0-44.9, adult Start:11-Sep-2022 Instruction Type:Provider Instructions for Treatment How to Access Health Informa tion Online using Patient Portal and [employer]rd [employer] Apps Indication:BMI 40.0-44.9, adult Start:11-Sep-2022 Instruction Type:Patient Education Patient Instructions Indication:Non-smoker Start:16-Aug-2022 Instruction Type:Provider Instructions for Treatment How to Access Health Informa tion Online using Patient Portal and [employer]rd [employer] Apps Indication:Non-smoker Start:16-Aug-2022 Instruction Type:Patient Education Patient Instructions Indication:BMI 40.0-44.9, adult Start:10-Jul-2022 Instruction Type:Provider Instructions for Treatment How to Access Health Informa tion Online using Patient Portal and [employer]rd [employer] Apps Indication:BMI 40.0-44.9, adult Start:10-Jul-2022 Instruction Type:Patient Education Patient Instructions Indication:Morbid obesity Start:16-May-2022 Instruction Type:Provider Instructions for Treatment How to Access Health Informa tion Online using Patient Portal and [employer]rd [employer] Apps Indication:Morbid obesity Start:16-May-2022 Instruction Type:Patient Education Patient Instructions Indication:Non-smoker Start:28-Mar-2022 Instruction Type:Provider Instructions for Treatment How to Access Health Informa tion Online using Patient Portal and [employer]rd [employer] Apps Indication:Non-smoker Start:28-Mar-2022 Instruction Type:Patient Education Patient Instructions Indication:Non-smoker Start:11-Mar-2022 Instruction Type:Provider Instructions for Treatment How to Access Health Informa tion Online using Patient Portal and [employer]rd [employer] Apps Indication:Non-smoker Start:11-Mar-2022 Instruction Type:Patient Education [facility]; [facility] Work Phone: Instructions* Name Dates Details Patient Instructions Indication:BMI 40.0-44.9, adult Start:14-Nov-2022 Instruction Type:Provider Instructions for Treatment How to Access Health Informa tion Online using Patient Portal and [employer]rd [employer] Apps Indication:BMI 40.0-44.9, adult Start:14-Nov-2022 Instruction Type:Patient Education Patient Instructions Indication:Non-smoker Start:09-Oct-2022 Instruction Type:Provider Instructions for Treatment How to Access Health Informa tion Online using Patient Portal and [employer]rd [employer] Apps Indication:Non-smoker Start:09-Oct-2022 Instruction Type:Patient Education Patient Instructions Indication:BMI 40.0-44.9, adult Start:11-Sep-2022 Instruction Type:Provider Instructions for Treatment How to Access Health Informa tion Online using Patient Portal and [employer]rd [employer] Apps Indication:BMI 40.0-44.9, adult Start:11-Sep-2022 Instruction Type:Patient Education Patient Instructions Indication:Non-smoker Start:16-Aug-2022 Instruction Type:Provider Instructions for Treatment How to Access Health Informa tion Online using Patient Portal and [employer]rd [employer] Apps Indication:Non-smoker Start:16-Aug-2022 Instruction Type:Patient Education Patient Instructions Indication:BMI 40.0-44.9, adult Start:10-Jul-2022 Instruction Type:Provider Instructions for Treatment How to Access Health Informa tion Online using Patient Portal and [employer]rd [employer] Apps Indication:BMI 40.0-44.9, adult Start:10-Jul-2022 Instruction Type:Patient Education Patient Instructions Indication:Morbid obesity Start:16-May-2022 Instruction Type:Provider Instructions for Treatment How to Access Health Informa tion Online using Patient Portal and [employer]rd [employer] Apps Indication:Morbid obesity Start:16-May-2022 Instruction Type:Patient Education Patient Instructions Indication:Non-smoker Start:28-Mar-2022 Instruction Type:Provider Instructions for Treatment How to Access Health Informa tion Online using Patient Portal and [employer]rd [employer] Apps Indication:Non-smoker Start:28-Mar-2022 Instruction Type:Patient Education Patient Instructions Indication:Non-smoker Start:11-Mar-2022 Instruction Type:Provider Instructions for Treatment How to Access Health Informa tion Online using Patient Portal and [employer]rd [employer] Apps Indication:Non-smoker Start:11-Mar-2022 Instruction Type:Patient Education [facility]; [facility] Work Phone: Instructions* Name Dates Details Patient Instructions Indication:BMI 40.0-44.9, adult Start:13-Mar-2023 Instruction Type:Provider Instructions for Treatment How to Access Health Informa tion Online using Patient Portal and [employer]rd [employer] Apps Indication:BMI 40.0-44.9, adult Start:13-Mar-2023 Instruction Type:Patient Education Patient Instructions Indication:BMI 40.0-44.9, adult Start:14-Nov-2022 Instruction Type:Provider Instructions for Treatment How to Access Health Informa tion Online using Patient Portal and [employer]rd [employer] Apps Indication:BMI 40.0-44.9, adult Start:14-Nov-2022 Instruction Type:Patient Education Patient Instructions Indication:Non-smoker Start:09-Oct-2022 Instruction Type:Provider Instructions for Treatment How to Access Health Informa tion Online using Patient Portal and [employer]rd [employer] Apps Indication:Non-smoker Start:09-Oct-2022 Instruction Type:Patient Education Patient Instructions Indication:BMI 40.0-44.9, adult Start:11-Sep-2022 Instruction Type:Provider Instructions for Treatment How to Access Health Informa tion Online using Patient Portal and [employer]rd [employer] Apps Indication:BMI 40.0-44.9, adult Start:11-Sep-2022 Instruction Type:Patient Education Patient Instructions Indication:Non-smoker Start:16-Aug-2022 Instruction Type:Provider Instructions for Treatment How to Access Health Informa tion Online using Patient Portal and [employer]rd [employer] Apps Indication:Non-smoker Start:16-Aug-2022 Instruction Type:Patient Education Patient Instructions Indication:BMI 40.0-44.9, adult Start:10-Jul-2022 Instruction Type:Provider Instructions for Treatment How to Access Health Informa tion Online using Patient Portal and [employer]rd [employer] Apps Indication:BMI 40.0-44.9, adult Start:10-Jul-2022 Instruction Type:Patient Education Patient Instructions Indication:Morbid obesity Start:16-May-2022 Instruction Type:Provider Instructions for Treatment How to Access Health Informa tion Online using Patient Portal and [employer]rd [employer] Apps Indication:Morbid obesity Start:16-May-2022 Instruction Type:Patient Education Patient Instructions Indication:Non-smoker Start:28-Mar-2022 Instruction Type:Provider Instructions for Treatment How to Access Health Informa tion Online using Patient Portal and [employer]rd [employer] Apps Indication:Non-smoker Start:28-Mar-2022 Instruction Type:Patient Education Patient Instructions Indication:Non-smoker Start:11-Mar-2022 Instruction Type:Provider Instructions for Treatment How to Access Health Informa tion Online using Patient Portal and [employer]rd [employer] Apps Indication:Non-smoker Start:11-Mar-2022 Instruction Type:Patient Education [facility]; [facility] Work Phone: reason for referral (narrative)No reason for referral information available[facility] Work Phone: Reason for visit Narrative* Imaging (Routine) - Pending Review Specialty Diagnoses / Procedures Referred By Contac t Referred To Contact Radiology Diagnoses Other abnormal glucose Procedures CT cardiac scoring wo IV contrast Lesli Márquez, [address] [address] Phone: tel: fax: Referral ID Status Reason Start Date Expiration Date Visits Requested Visits Authorized [id number] Pending Review Perform Procedure 11/16/2024 11/16/2025 1 1 [facility] Work Phone: Chief Complaint and [...] March 02, 2022 7 :37am Power of Building Maintenance Technician No March 02, 2022 7:37am Advance Directive Response Recorded Date/ Time Living Will No August 14 1:46pm Power of Building Maintenance Technician No August 14, 2022 1:46pm Advance Directive Response Recorded Date/ Time Living Will No August 14 12:46pm Power of Building Maintenance Technician No August 14, 2022 12:46pm Summary Purpose [...] DATE CREATED AUTHOR AUTHOR'S ORGANIZ ATION 10/04/2023 [facility] DATE CREATED AUTHOR AUTHOR'S ORGANIZ ATION 01/02/2025 [facility] DATE CREATED AUTHOR AUTHOR'S ORGANIZ ATION 08/20/2025 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 [facility] [employer] [facility]. provides no warranty or guarantee of the accuracy or completeness of information in this document.
== END | disposition home or self-care (01) ==
LOC: CIMLAB 08:24
PROVIDERS: PCP Internal Medicine; Referring Provider Internal Medicine; Visit Provider Internal Medicine
DX: R73.9 Hyperglycemia, unspecified (principal)
CPT/HCPCS: 36415; 83036